=== PATIENT | female | born 1935 | race Caucasian/White ===

== ENCOUNTER → 2017-01-31 | Outpatient (CLI) | payer OTHER ==
[2015-12-06 22:59] VITALS: BP 133/69
[~2017-01-31] MED LIST: AMIT10TA PO; ATOR10TA PO; Amitriptyline Hcl PO; Amoxicillin/Potassium Clav PO; GABA-586 PO; Oxycodone Hcl/Acetaminophen PO; Polyethylene Glycol 3350 PO; SERT50TA PO; SIMV10TA3 PO; TRAM50TA PO
--- NOTE | 2017-01-31 10:45 | RAD ---
APPROVED REPORT Patient Location: OUT-PATIENT Laterality:Bilateral Indications Bruit LT Doppler Spectral Velocity Analysis Right Left pCCA 86/20 cm/spCCA 114/33 cm/s mCCA 95/31 cm/smCCA 93/26 cm/s dCCA 97/30 cm/sdCCA 91/26 cm/s Bulb 72/23 cm/sBulb 41/12 cm/s ECA 83/ cm/sECA 75/ cm/s pICA 97/29 cm/spICA 72/23 cm/s Jeanette 63/17 cm/smICA 97/39 cm/s dICA 102/31 cm/sdICA 98/41 cm/s Vert. 31/ cm/sVert. 37/ cm/s Subcl. 54/ cm/sSubcl. 89/ cm/s ICA/CCA 1.05ICA/CCA 0.86 Findings Cline scale images of the bilateral common carotid, external carotid, internal carotid and vertebral v essels do not reveal any significant obstructive plaque. Spectral waveforms and color Doppler does not reveal any significant stenosis. Velocities are within normal limits. The vertebral flows are antegrade. Critical Notification Critical Value: No <Conclusion> No significant stenosis identified in the bilateral carotid arterial system.
--- NOTE | 2017-01-31 12:30 | CARD ---
APPROVED REPORT EXAM: Two-dimensional and M-mode echocardiogram with Doppler and color Doppler. Other Information Quality : GoodHR: 74bpm Rhythm : NSR INDICATION Dizziness, Falls, Elevated blood pressure w/o diagnosis of HTN 2D DIMENSIONS RVDd2.8 (2.9-3.5cm)Left Atrium(2D)2.9 (1.6-4.0cm) IVSd0.8 (0.7-1.1cm)Aortic Root(2D)3.6 (2.0-3.7cm) LVDd4.8 (3.9-5.9cm)LVOT Diameter2.5 (1.8-2.4cm) PWd0.7 (0.7-1.1cm)LVDs3.1 (2.5-4.0cm) FS (%) 35.2 %SV70.2 ml Aortic Valve AoV Peak Tavon.132.7cm/sAoV VTI29.5cm AO Peak GR.7.0mmHgLVOT Peak Tavon.96.4cm/s AO Mean GR.4mmHgAVA (VMAX)3.55cm2 Mitral Valve MV E Favlwhnz15.8cm/sMV E Peak Gr.4mmHg MV DECEL [id number] A Cwppcqla913.9cm/s MV E Mean Gr.2mmHgE/A Ratio0.6 MV A [id number] Pulmonary Valve PV Peak Iziesycz92.5cm/s Tricuspid Valve TR P. Trkipyny809cm/sTR Peak Gr.31mmHg Pulmonary Vein S1 Pjfqvlwd99.0cm/sD2 Qqvhrwbd07.6cm/s PVa ryqtknts62zutn LEFT VENTRICLE The left ventricle is normal size. There is normal left ventricular wall thickness. The left ventricu lar systolic function is normal and the ejection fraction is within normal range. The Ejection Fracti on is 55-60%. There is normal LV segmental wall motion. Transmitral Doppler flow pattern is Grade I-a bnormal relaxation pattern. RIGHT VENTRICLE The right ventricle is normal size. There is normal right ventricular wall thickness. The right ventr icular systolic function is normal. ATRIA The left atrium size is normal. The right atrium size is normal. The interatrial septum is intact wit h no evidence for an atrial septal defect or patent foramen ovale as noted on 2-D or Doppler imaging. AORTIC VALVE The aortic valve is mildly sclerotic. The aortic valve is trileaflet. Doppler and Color Flow revealed trace aortic regurgitation. There is no significant aortic valvular stenosis. MITRAL VALVE The mitral valve leaflets are mildly thickened. There is no evidence of mitral valve prolapse. There is no mitral valve stenosis. Doppler and Color Flow revealed no mitral valve regurgitation noted. TRICUSPID VALVE Doppler and Color Flow revealed mild tricuspid regurgitation. The pulmonary artery systolic pressure is estimated at 34 mmHg. PULMONIC VALVE Doppler and Color Flow revealed no pulmonic valvular regurgitation. There is no pulmonic valvular beatriz nosis. GREAT VESSELS The aortic root is mildly enlarged. The ascending aorta is normal in size. The pulmonary artery is no rmal. The IVC is normal in size and collapses >50% with inspiration. PERICARDIAL EFFUSION There is no evidence of significant pericardial effusion. Critical Notification Critical Value: No <Conclusion> The left ventricle is normal size. The left ventricular systolic function is normal and the ejection fraction is within normal range. The Ejection Fraction is 55-60%. There is no significant aortic valvular stenosis. Doppler and Color Flow revealed trace aortic regurgitation. Doppler and Color Flow revealed no mitral valve regurgitation noted. Doppler and Color Flow revealed mild tricuspid regurgitation. The pulmonary artery systolic pressure is estimated at 34 mmHg.
== END | disposition home or self-care (01) ==
LOC: ECHO 08:49
PROVIDERS: ATTEND Internal Medicine Cardiovascular Disease
DX: I08.2 Rheumatic disorders of both aortic and tricuspid valves (principal); R09.89 Other specified symptoms and signs involving the circulatory and respiratory systems
CPT/HCPCS: 93306; 93880

== ENCOUNTER 2019-04-26 10:18 | Inpatient (IN) | payer OTHER ==
[~2019-04-26] VITALS: Ht 160 cm; Wt 74.5 kg
[~2019-04-26 10:18] MED LIST changes: -GABA-586 PO; +GABA300C18 PO
[2019-04-26 11:05] LABS: BASO # 0.1 x10^3/uL (0.0-0.2); BASO % 1 % (0-3); EOS # 0.2 x10^3/uL (0.0-0.7); EOS % 3 % (0-3); HEMATOCRIT 41.3 % (36.0-47.0); LYMPH # 1.4 x10^3/uL (1.0-4.8); LYMPH % 23 % (24-48); MEAN CORPUSCULAR HEMOGLOBIN 31 pg (25-35); MEAN CORPUSCULAR HGB CONC 34 g/dL (31-37); MEAN CORPUSCULAR VOLUME 92 fL (79-100); MONO # 0.5 x10^3/uL (0.0-1.1); MONO % 8 % (0-9); NEUT # 4.1 x10^3/uL (1.8-7.7); NEUT % 66 % (31-73); PLATELET COUNT 304 x10^3/uL (140-400); RED BLOOD COUNT 4.47 x10^6/uL (3.50-5.40); RED CELL DISTRIBUTION WIDTH 16.7 % (11.5-14.5); WHITE BLOOD COUNT 6.2 x10^3/uL (4.0-11.0)
[2019-04-26 11:14] LABS: BILIRUBIN,URINE MODERATE (NEG); CLARITY,URINE CLEAR; COLOR,URINE AMBER; NITRITE,URINE NEGATIVE (NEG); PROTEIN,URINE NEGATIVE (NEG-TRACE); UROBILINOGEN,URINE 0.2 mg/dL (0.2 mg/dL)
[2019-04-26 11:16] LABS: PROTHROMBIN TIME PATIENT 12.6 SEC (11.7-14.0)
[2019-04-26 11:20] LABS: CALCIUM 9.6 mg/dL (8.5-10.1); CREATININE 1.1 mg/dL (0.6-1.0); GFR 47.7; POTASSIUM 4.1 mmol/L (3.5-5.1)
[2019-04-26 11:21] LABS: ALBUMIN 3.5 g/dL (3.4-5.0); ALBUMIN/GLOBULIN RATIO 0.7 (1.0-1.7); TOTAL BILIRUBIN 10.3 mg/dL (0.2-1.0); TOTAL PROTEIN 8.3 g/dL (6.4-8.2)
[2019-04-26 11:25] LABS: BACTERIA,URINE FEW /HPF (0-FEW); RBC,URINE 0 /HPF (0-2); SQUAMOUS EPITHELIAL CELL,UR FEW /LPF; WBC,URINE OCC /HPF (0-4)
[2019-04-26] MEDS ORDERED: CONTRAST GIVEN. MC PRN (12:00)
--- NOTE | 2019-04-26 12:23 | PDOC ---
Provider Note Provider Note history and physical dictated # [id number] SRINIVASA ABDULLAHI MD Apr 26, 2019 12:23
--- NOTE | 2019-04-26 12:26 | RAD ---
PQRS Compliance Statement: One or more of the following individualized dose reduction techniques were utilized for this examination: 1. Automated exposure control 2. Adjustment of the mA and/or kV according to patient size 3. Use of iterative reconstruction technique CT abdomen/pelvis with contrast 04/26/2019 11:47 AM INDICATION: Abdominal pain, nausea and vomiting COMPARISON: None available TECHNIQUE: Multiple axial CT images of the abdomen and pelvis were obtained after the intravenous administration of 60 and Omnipaque 300. Coronal and sagittal reformats are provided. FINDINGS: There is subsegmental atelectasis at the left lung base. Heart size is within normal limits. Liver is homogeneous in enhancement without suspicious hepatic lesion. Spleen is nonenlarged. Adrenal glands are normal in appearance. Pancreas is normal. There is a small duodenal diverticulum measuring 18 x 16 mm. Gallbladder surgically absent. There is moderate intrahepatic and extrahepatic biliary ductal dilatation with common bile duct measuring 17 mm. There is a large diverticulum involving the duodenal jejunal junction measuring 4.9 x 3.7 cm. The abdominal aorta is normal in course and caliber. There are no pathologically enlarged lymph nodes in the abdomen and pelvis. There is no abdominal free fluid. There is no free intraperitoneal air. Small and large bowel are normal in caliber. There is no evidence for bowel obstruction. There are no pericolonic inflammatory changes. Appendix is not definitively visualized. No pericecal inflammatory changes are present. Kidneys enhance symmetrically. No suspicious renal mass. No hydronephrosis. No definite renal calculi are identified. Urinary bladder is within normal limits given degree of distention. No suspicious osseous normality is identified. Uterus is surgically absent or atrophied. No suspicious adnexal mass. IMPRESSION: 1. No evidence for bowel obstruction or inflammation. 2. Small proximal duodenal and large distal duodenal diverticula without adjacent inflammatory changes. 3. Moderate intrahepatic and extra hepatic biliary ductal dilatation. Consideration may be given for reservoir effect status post cholecystectomy. Correlate with hepatobiliary enzymes. If there is persistent clinical concern, further characterization with MRCP may be of benefit. Electronically signed by: Amelia Liang MD (04/26/2019 12:23 PM) [facility]
[2019-04-26] MEDS ORDERED: MORPHINE SULFATE 2 MG/ML VIAL. IV PRN (12:30)
[2019-04-26] MEDS ORDERED: IOHEXOL 300 MG/ML 100ML VIAL. IV ONE (12:30)
[2019-04-26] MEDS ORDERED: MAGNESIUM HYDROXIDE 2,400 MG/30 ML ORAL.SUSP. PO PRN (12:30)
[2019-04-26] MEDS ORDERED: HYDROcodone/APAP 5/325MG 1 TAB TABLET PO PRN (12:30)
--- NOTE | 2019-04-26 12:37 | PHYS DOC ---
Past Medical History Past Medical History: Anemia, Fibromyalgia, High Cholesterol, Hypertension, Other Additional Past Medical Histor: Kidney disease Past Surgical History: Cholecystectomy, Hysterectomy, Other Additional Past Surgical Histo: Cystocele,Rectocele Alcohol Use: Rarely Drug Use: None Adult General Chief Complaint Chief Complaint: NAUSEA/VOMITING/[facility] HPI Patient is a 83 year old female presented ER today for evaluation of nausea, vomiting, general weakness, with itching skin discoloration been going on for about 2 weeks. Patient went to see her doctor yesterday, who ordered some lab work and CT scan of her abdomen and pelvic but it was not done. Patient continued to feel worse so she called her doctor who told to come to ER for evaluation. Patient also complaint of having a clayed color stool. l Review of Systems Review of Systems Constitutional: Denies fever or chills. Positive for generalized weakness. Eyes: Denies change in visual acuity, redness, or eye pain [] HENT: Denies nasal congestion or sore throat [] Respiratory: Denies cough or shortness of breath [] Cardiovascular: No additional information not addressed in HPI [] GI: Positive for abdominal pain, nausea, vomiting, stool with mary color. : Denies dysuria or hematuria [] Musculoskeletal: Denies back pain or joint pain [] Integument: Denies rash or skin lesions [] Neurologic: Denies headache, focal weakness or sensory changes [] Endocrine: Denies polyuria or polydipsia [] All other systems were reviewed and found to be within normal limits, except as documented in this note. Current Medications Current Medications Current Medications Medications (Trade) Dose Ordered Sig/Meka Start Time Stop Time Status Last Admin Dose Admin Acetaminophen (Tylenol) 325 mg PRN Q6HRS PRN 04/26/19 12:30 Acetaminophen/ Hydrocodone Bitart (Lortab 5/325) 1 tab PRN Q4HRS PRN 04/26/19 12:45 Hydroxyzine HCl (Atarax) 25 mg PRN Q6HRS PRN 04/26/19 12:30 04/26/19 15:43 25 MG Info (CONTRAST GIVEN -- Rx MONITORING) 1 each PRN DAILY PRN 04/26/19 12:00 04/28/19 11:59 Iohexol (Omnipaque 300 Mg/ml) 60 ml 1X ONCE 04/26/19 12:30 04/26/19 12:31 DC 04/26/19 12:06 60 ML Lorazepam (Ativan) 0.5 mg PRN BID PRN 04/26/19 12:30 Magnesium Hydroxide (Milk Of Magnesia) 2,400 mg PRN DAILY PRN 04/26/19 12:30 Morphine Sulfate (Morphine Sulfate) 1 mg PRN Q4HRS PRN 04/26/19 12:45 Ondansetron HCl (Zofran) 4 mg PRN Q6HRS PRN 04/26/19 12:30 Allergies Allergies Allergies Coded Allergies Type Severity Reaction Last Updated Verified Penicillins Allergy Intermediate 04/26/19 Yes Sulfa (Sulfonamide Antibiotics) Allergy Intermediate Hives. 04/14/15 Yes lisinopril Allergy Intermediate 04/14/15 Yes Physical Exam Physical Exam Constitutional: Well developed, well nourished, no acute distress, non-toxic appearance. [] HENT: Normocephalic, atraumatic, bilateral external ears normal, oropharynx moist, no oral exudates, nose normal. [] Eyes: PERRLA, EOMI, conjunctiva icterus, no discharge. [] Neck: Normal range of motion, no tenderness, supple, no stridor. [] Cardiovascular:Heart rate regular rhythm, no murmur [] Lungs & Thorax: Bilateral breath sounds clear to auscultation [] Abdomen: Bowel sounds normal, soft, no tenderness, no masses, no pulsatile masses. [] Skin: Warm, dry, no erythema, moderate Jaundice. Back: No tenderness, no CVA tenderness. [] Extremities: No tenderness, no cyanosis, no clubbing, ROM intact, no edema. [] Neurologic: Alert and oriented X 3, normal motor function, normal sensory function, no focal deficits noted. [] Psychologic: Affect normal, judgement normal, mood normal. [] Current Patient Data Vital Signs Vital Signs Date Time Temp Pulse Resp B/P (MAP) Pulse Ox O2 Delivery O2 Flow Rate FiO2 04/26/19 12:40 74 14 148/92 (110) 96 Room Air 04/26/19 10:40 98.2 98.2 Lab Values Laboratory Tests Test 04/26/19 10:40 04/26/19 10:55 04/26/19 11:18 Urine Collection Type Unknown Urine Color Rhoda Urine Clarity Clear Urine pH 6.0 Urine Specific [place] 1.010 Urine Protein Negative mg/dL (NEG-TRACE) Urine Glucose (UA) Negative mg/dL (NEG) Urine Ketones (Stick) Negative mg/dL (NEG) Urine Blood Negative (NEG) Urine Nitrite Negative (NEG) Urine Bilirubin Moderate (NEG) Urine Urobilinogen Dipstick 0.2 mg/dL (0.2 mg/dL) Urine Leukocyte Esterase Trace (NEG) Urine RBC 0 /HPF (0-2) Urine WBC Occ /HPF (0-4) Urine Squamous Epithelial Cells Few /LPF Urine Bacteria Few /HPF (0-FEW) White Blood Count 6.2 x10^3/uL (4.0-11.0) Red Blood Count 4.47 x10^6/uL (3.50-5.40) Hemoglobin 14.0 g/dL (12.0-15.5) Hematocrit 41.3 % (36.0-47.0) Mean Corpuscular Volume 92 fL (79-100) Mean Corpuscular Hemoglobin 31 pg (25-35) Mean Corpuscular Hemoglobin Concent 34 g/dL (31-37) Red Cell Distribution Width 16.7 % (11.5-14.5) H Platelet Count 304 x10^3/uL (140-400) Neutrophils (%) (Auto) 66 % (31-73) Lymphocytes (%) (Auto) 23 % (24-48) L Monocytes (%) (Auto) 8 % (0-9) Eosinophils (%) (Auto) 3 % (0-3) Basophils (%) (Auto) 1 % (0-3) Neutrophils # (Auto) 4.1 x10^3/uL (1.8-7.7) Lymphocytes # (Auto) 1.4 x10^3/uL (1.0-4.8) Monocytes # (Auto) 0.5 x10^3/uL (0.0-1.1) Eosinophils # (Auto) 0.2 x10^3/uL (0.0-0.7) Basophils # (Auto) 0.1 x10^3/uL (0.0-0.2) Prothrombin Time 12.6 SEC (11.7-14.0) Prothrombin Time INR 1.0 (0.8-1.1) PTT 33 SEC (24-38) Sodium Level 140 mmol/L (136-145) Potassium Level 4.1 mmol/L (3.5-5.1) Chloride Level 101 mmol/L (98-107) Carbon Dioxide Level 25 mmol/L (21-32) Anion Gap 14 (6-14) Blood Urea Nitrogen 18 mg/dL (7-20) Creatinine 1.1 mg/dL (0.6-1.0) H Estimated GFR (Cockcroft-Gault) 47.7 BUN/Creatinine Ratio 16 (6-20) Glucose Level 151 mg/dL (70-99) H Calcium Level 9.6 mg/dL (8.5-10.1) Total Bilirubin 10.3 mg/dL (0.2-1.0) H Aspartate Amino Transferase (AST) 329 U/L (15-37) H Alanine Aminotransferase (ALT) 480 U/L (14-59) H Alkaline Phosphatase 493 U/L (46-116) H Total Protein 8.3 g/dL (6.4-8.2) H Albumin 3.5 g/dL (3.4-5.0) Albumin/Globulin Ratio 0.7 (1.0-1.7) L Lipase 184 U/L (73-393) Ammonia 31 mcmol/L (11-34) Laboratory Tests 04/26/19 10:55 Laboratory Tests 04/26/19 10:55 EKG EKG [] Radiology/Procedures Radiology/Procedures [][facility] [address] [place], [place] [id number] IMAGING REPORT Signed PATIENT: ANDREW LA ACCOUNT: [id number] : 1935 LOCATION: ER AGE: 83 SEX: F EXAM STATUS: REG ER ORD. PHYSICIAN: MOISES SIMMONS DO REASON: ABDOMINAL PAIN, NAUSEA, VOMITING PROCEDURE: CT ABD PELV W/ IV CONTRST ONLY PQRS Compliance Statement: One or more of the following individualized dose reduction techniques were utilized for this examination: 1. Automated exposure control 2. Adjustment of the mA and/or kV according to patient size 3. Use of iterative reconstruction technique CT abdomen/pelvis with contrast 04/26/2019 11:47 AM INDICATION: Abdominal pain, nausea and vomiting COMPARISON: None available TECHNIQUE: Multiple axial CT images of the abdomen and pelvis were obtained after the intravenous administration of 60 and Omnipaque 300. Coronal and sagittal reformats are provided. FINDINGS: There is subsegmental atelectasis at the left lung base. Heart size is within normal limits. Liver is homogeneous in enhancement without suspicious hepatic lesion. Spleen is nonenlarged. Adrenal glands are normal in appearance. Pancreas is normal. There is a small duodenal diverticulum measuring 18 x 16 mm. Gallbladder surgically absent. There is moderate intrahepatic and extrahepatic biliary ductal dilatation with common bile duct measuring 17 mm. There is a large diverticulum involving the duodenal jejunal junction measuring 4.9 x 3.7 cm. The abdominal aorta is normal in course and caliber. There are no pathologically enlarged lymph nodes in the abdomen and pelvis. There is no abdominal free fluid. There is no free intraperitoneal air. Small and large bowel are normal in caliber. There is no evidence for bowel obstruction. There are no pericolonic inflammatory changes. Appendix is not definitively visualized. No pericecal inflammatory changes are present. Kidneys enhance symmetrically. No suspicious renal mass. No hydronephrosis. No definite renal calculi are identified. Urinary bladder is within normal limits given degree of distention. No suspicious osseous normality is identified. Uterus is surgically absent or atrophied. No suspicious adnexal mass. IMPRESSION: 1. No evidence for bowel obstruction or inflammation. 2. Small proximal duodenal and large distal duodenal diverticula without adjacent inflammatory changes. 3. Moderate intrahepatic and extra hepatic biliary ductal dilatation. Consideration may be given for reservoir effect status post cholecystectomy. Correlate with hepatobiliary enzymes. If there is persistent clinical concern, further characterization with MRCP may be of benefit. Electronically signed by: Paxton Daniel MD (04/26/2019 12:23 PM) [facility] DICTATED and SIGNED BY: PAXTON DANIEL MD DATE: 04/26/19 1223 [facility] [address] [place], [place] [id number] IMAGING REPORT Signed PATIENT: ANDREW LA ACCOUNT: [id number] : 1935 LOCATION: [address] [place] [address] AGE: 83 SEX: F EXAM STATUS: ADM IN ORD. PHYSICIAN: MOISES SIMMONS DO REASON: ABDOMINAL PAIN, JAUNDICE PROCEDURE: ABDOMEN LTD Limited ultrasound abdomen 04/26/2019 INDICATION: Abdominal pain, jaundice. COMPARISON: CT abdomen/pelvis April 26, 2019 TECHNIQUE: Sonographic evaluation of the right upper quadrant was performed utilizing grayscale and color Doppler. FINDINGS: IVC and aorta are normal in appearance. Increased echogenicity of the hepatic parenchyma suggestive of hepatocellular disease, most, hepatic steatosis. No suspicious hepatic mass. Hepatopedal flow is identified within the portal venous system. Right hepatic lobe measures 16.7 cm. Pancreas is poorly visualized. Status post cholecystectomy. There is intrahepatic and extra hepatic biliary ductal dilatation. Common bile duct measures up to 12.2 mm. Right kidney measures 8.1 x 4.3 x 4.9 cm. Mild cortical atrophy with normal cortical medullary differentiation. No suspicious renal mass or renal calculi. There is no free fluid in the right upper quadrant. IMPRESSION: 1. Intrahepatic and extrahepatic bladder ductal dilatation with common bile duct measuring up to 12.2 mm. Recommend further evaluation with MRCP in the setting of jaundice. 2. Increased echogenicity of the hepatic parenchyma suggestive of hepatocellular disease, most, hepatic steatosis. Electronically signed by: Paxton Daniel MD (04/26/2019 1:55 PM) [facility] DICTATED and SIGNED BY: PAXTON DANIEL MD DATE: 04/26/19 7816 Course & Med Decision Making Course & Med Decision Making Pertinent Labs and Imaging studies reviewed. (See chart for details) [] Dragon Disclaimer Dragon Disclaimer This electronic medical record was generated, in whole or in part, using a voice recognition dictation system. Departure Departure Impression: Primary Impression: Obstructive jaundice Additional Impression: Acute hepatitis Disposition: ADMITTED INPATIENT Admitting Physician: Genaro Perez Condition: STABLE Referrals: GENARO PEREZ MD (PCP) Problem Qualifiers MOISES SIMMONS DO Apr 26, 2019 12:37
--- NOTE | 2019-04-26 13:05 | HP ---
ADMIT DATE: 04/26/2019 HISTORY OF PRESENT ILLNESS: The patient is an 83-year-old white female, who has 1-week history of generalized pruritus, mary-colored stools, dark urine, and some decreased appetite. She actually was seen in the office on 04/25/2019 for these symptoms and laboratory tests were ordered, and a CAT scan of the abdomen and pelvis was also to be ordered. The patient developed significant nausea and epigastric abdominal pain today, and her son who is a physician told her to go to the [facility] Emergency Room where she was subsequently evaluated. She had laboratory tests done, which showed a total bilirubin of 10.3, alkaline phosphatase was elevated at 493, SGOT was 329, SGPT was 480. A CAT scan of abdomen and pelvis has been ordered and is pending at the time of this dictation. She does have a history of a cholecystectomy. She has had no vomiting, but she has persistent nausea with decreased appetite. She was noted to be jaundiced yesterday and of course today. She is therefore admitted for further evaluation of her jaundice, treatment of her nausea, generalized pruritus, and abdominal pain, and to workup her jaundice. ALLERGIES AND INTOLERANCES: TO PENICILLIN, SULFA AND LISINOPRIL, CAUSED ANGIOEDEMA. MEDICATIONS: Prior to admission, she was on amitriptyline, which was 50 mg at bedtime reduced yesterday to 25 mg at bedtime, amlodipine 5 mg every day, atorvastatin 10 mg every day which was just discontinued yesterday due to her jaundice, Flonase p.r.n., gabapentin 300 mg t.i.d., hydroxyzine was ordered yesterday 10 mg t.i.d. p.r.n. for itching, lorazepam 0.5 mg every day p.r.n. for anxiety, MiraLax 17 gm every day in 8 ounces of fluid, ProAir inhaler p.r.n., sertraline 50 mg every day, tramadol was reduced from 50 mg 2 tablets t.i.d. to 1 tablet t.i.d. PAST MEDICAL HISTORY: Significant for a cholecystectomy a few years ago. She also has a history of depression, hypertension, hyperlipidemia. She had pneumonia involving the left lower lobe in 11/2015. She had Fibromyalgia. She does have minimal chronic kidney disease. Serum creatinine was 1.1. SOCIAL HISTORY: She does not drink alcohol nor does she smoke cigarettes. She is , retired. FAMILY HISTORY: Noncontributory. REVIEW OF SYSTEMS: GENERAL: There has been no fever, chills, or sweats in last few days. CARDIOVASCULAR: No chest pain. PULMONARY: No cough or shortness of breath. GASTROINTESTINAL: She has had nausea and some epigastric abdominal pain. She has got mary-colored stools. SKIN: She has generalized pruritus. ENDOCRINE: No diabetes mellitus. The rest of systems reviewed are negative except as stated in history of present illness. PHYSICAL EXAMINATION: VITAL SIGNS: Temperature is 98.2 degrees, apical pulse is 79, respiratory rate 16, blood pressure 146/86, oxygen saturation 95% on room air. HEENT: Eyes, gaze is conjugate. Sclerae are icteric. Mouth, tongue is midline. NECK: There is no cervical lymphadenopathy or thyroid enlargement. HEART: Reveals an S1, S2. There is no S3 or murmur. LUNGS: Clear. ABDOMEN: Appears distended. I cannot feel her liver edge below her costal margin in the right side. I cannot feel an enlarged spleen, cannot feel a spleen tip. Abdomen is not tender. I could not feel a definite fluid wave. EXTREMITIES: Lower extremities without edema. SKIN: She is jaundiced. NEUROLOGIC: No focal weakness. LABORATORY DATA: Review of her laboratory tests; her white count is 6.2, hemoglobin 14, platelet count 304,000 with 66 polys and 23 lymphocytes. INR was 1.0, PTT of 33. The sodium is 140, potassium 4.1, chloride 101, total CO2 is 25, BUN 18, creatinine 1.1, estimated GFR 47.8 and blood sugar is 151, nonfasting. Total bilirubin was 10.3, alkaline phosphatase was 493, SGOT of 329, SGPT of 480. Ammonia level was 31. Albumin was 3.5. Lipase was 184. Urinalysis showed moderate bilirubin, 0 red cells and occasional white blood cell. Her EKG, chest x-ray, and CAT scan of the abdomen and pelvis are pending at the time of this dictation. ASSESSMENT AND PLAN: 1. Jaundice, certainly concerned about obstructive jaundice and we will wait for the CAT scan of abdomen and pelvis to dictate the next move and the diagnostic evaluation and treatment of this. Obviously in the setting of obstructive jaundice, we worried about pancreatic cancer, cholangiocarcinoma, and prabha hepatis tumors that can compress on the bile duct. Also, need to rule out liver metastases, which will be less likely as she does not have a primary malignancy and also need to rule out a bile duct stone obstruction even in the setting of a cholecystectomy, although that would be less likely. 2. Epigastric abdominal pain. Wait for the CAT scan of the abdomen and pelvis results, and we will order some IV morphine sulfate and hydrocodone p.r.n. 3. Generalized pruritus secondary to the suspected obstructive jaundice and we will order cholestyramine 4 gm b.i.d. and also order hydroxyzine 25 mg p.o. every 6 hours p.r.n. We will be consulting the Gastrointestinal doctor. We will also order SCDs for deep vein thrombosis prophylaxis. We will discontinue the atorvastatin and we can continue the tramadol. Continue with her other home medications. Again, we will wait for the CAT scan of abdomen and pelvis results. Also order some Zofran 4 mg IV every 6 hours p.r.n. for nausea. SRINIVASA ABDULLAHI MD DR: ISAK/valorie JOB#: [id number] / [id number]
--- NOTE | 2019-04-26 13:09 | RAD ---
AP chest x-ray HISTORY: Jaundice, hypertension. FINDINGS: Heart size normal. Mild tortuosity descending thoracic aorta silhouette. No pneumothorax, pulmonary opacities or pleural effusions. Bones are unremarkable. IMPRESSION: No acute process. Electronically signed by: Ross Momin MD (04/26/2019 1:07 PM) [facility]
[2019-04-26 13:50] VITALS: BP 147/88
--- NOTE | 2019-04-26 13:58 | RAD ---
Limited ultrasound abdomen 04/26/2019 INDICATION: Abdominal pain, jaundice. COMPARISON: CT abdomen/pelvis April 26, 2019 TECHNIQUE: Sonographic evaluation of the right upper quadrant was performed utilizing grayscale and color Doppler. FINDINGS: IVC and aorta are normal in appearance. Increased echogenicity of the hepatic parenchyma suggestive of hepatocellular disease, most, hepatic steatosis. No suspicious hepatic mass. Hepatopedal flow is identified within the portal venous system. Right hepatic lobe measures 16.7 cm. Pancreas is poorly visualized. Status post cholecystectomy. There is intrahepatic and extra hepatic biliary ductal dilatation. Common bile duct measures up to 12.2 mm. Right kidney measures 8.1 x 4.3 x 4.9 cm. Mild cortical atrophy with normal cortical medullary differentiation. No suspicious renal mass or renal calculi. There is no free fluid in the right upper quadrant. IMPRESSION: 1. Intrahepatic and extrahepatic bladder ductal dilatation with common bile duct measuring up to 12.2 mm. Recommend further evaluation with MRCP in the setting of jaundice. 2. Increased echogenicity of the hepatic parenchyma suggestive of hepatocellular disease, most, hepatic steatosis. Electronically signed by: Amelia Liang MD (04/26/2019 1:55 PM) [facility]
[2019-04-26 15:39] VITALS: BP 144/84
[2019-04-26] MEDS: hydrOXYzine 25 MG TABLET PO PRN ×2 (15:43→22:20)
[2019-04-26] MEDS: GABAPENTIN 300 MG CAPSULE. PO SCH ×2 (15:43→20:40)
[2019-04-26] MEDS: traMADol 50 MG TABLET PO SCH ×2 (15:43→20:40)
[2019-04-26 19:30] VITALS: BP 135/44
[2019-04-26] MEDS: CHOLESTYRAMINE/ASPARTAME 4 GM PACKET PO SCH (22:21)
[2019-04-26 23:46] VITALS: BP 161/91
[2019-04-26] MEDS: HYDROcodone/APAP 5/325MG 1 TAB TABLET PO PRN (23:51)
[2019-04-27 03:06] VITALS: BP 146/75
[2019-04-27] MEDS: hydrOXYzine 25 MG TABLET PO PRN ×4 (04:32→23:56)
[2019-04-27 07:15] VITALS: BP 134/65
[2019-04-27] MEDS: GABAPENTIN 300 MG CAPSULE. PO SCH ×3 (08:30→20:13)
[2019-04-27] MEDS: POLYETHYLENE GLYCOL 3350 17 GM PACKET. PO SCH ×2 (08:30→17:52)
[2019-04-27] MEDS: traMADol 50 MG TABLET PO SCH ×3 (08:30→20:13)
[2019-04-27] MEDS: SERTRALINE 50 MG TABLET. PO SCH (08:30)
[2019-04-27] MEDS: CHOLESTYRAMINE/ASPARTAME 4 GM PACKET PO SCH ×2 (08:31→21:04)
[2019-04-27 10:58] VITALS: BP 131/65
--- NOTE | 2019-04-27 11:20 | NUR ---
Per Dr. Perez,this RN paged Dr. Tobias regarding the GI consult and possible ERCP order for Sunday. Dr. Tobias aware of the plan of care, and will see the patient today. Will continue to monitor.
--- NOTE | 2019-04-27 11:37 | PDOC ---
PROGRESS NOTES Subjective Subjective ct scan of abdomen and pelvis and abdominal ultrasound shows intrahepatic and extrahepatic biliary duct dilatation. total bilirubin 10. has epigastric abdominal pain severe at times and severe generalized pruritis and mary colored stools and nausea. discussed with patient and her and her son who is an MD. Objective Objective Vital Signs Date Time Temp Pulse Resp B/P (MAP) Pulse Ox O2 Delivery O2 Flow Rate FiO2 04/27/19 10:58 98.4 90 18 131/65 (87) 94 Room Air 98.4 Intake and Output 04/27/19 07:00 # Voids 4 Physical Exam Abdomen: Soft, Other (liver edge palpable) Heart: Regular rate, Normal S1, Normal S2 Extremities: No edema General: Alert, Cooperative HEENT: Atraumatic, Other (sclera icteric) Lungs: Clear to auscultation Neck: Supple Neuro: Normal speech Psych/Mental Status: Mental status NL Skin: Other (jaundice) Assessment Assessment Problems1.obstructive jaundice severe generalized pruritis nausea epigastric pain hypertension hyperlipidemia. off atorvastatin Medical Problems: (1) Acute hepatitis Status: Acute (2) Obstructive jaundice Status: Acute Plan Plan of Care GI consult. evaluate for ERCP iv morphine prn iv zofran prn cholestyramine and hydroxyzine Comment Review of Relevant I have reviewed the following items betty (where applicable) has been applied. Labs Laboratory Tests Test 04/26/19 10:40 04/26/19 10:55 04/26/19 11:18 Urine Collection Type Unknown Urine Color Rhoda Urine Clarity Clear Urine pH 6.0 Urine Specific [place] 1.010 Urine Protein Negative mg/dL (NEG-TRACE) Urine Glucose (UA) Negative mg/dL (NEG) Urine Ketones (Stick) Negative mg/dL (NEG) Urine Blood Negative (NEG) Urine Nitrite Negative (NEG) Urine Bilirubin Moderate (NEG) Urine Urobilinogen Dipstick 0.2 mg/dL (0.2 mg/dL) Urine Leukocyte Esterase Trace (NEG) Urine RBC 0 /HPF (0-2) Urine WBC Occ /HPF (0-4) Urine Squamous Epithelial Cells Few /LPF Urine Bacteria Few /HPF (0-FEW) White Blood Count 6.2 x10^3/uL (4.0-11.0) Red Blood Count 4.47 x10^6/uL (3.50-5.40) Hemoglobin 14.0 g/dL (12.0-15.5) Hematocrit 41.3 % (36.0-47.0) Mean Corpuscular Volume 92 fL (79-100) Mean Corpuscular Hemoglobin 31 pg (25-35) Mean Corpuscular Hemoglobin Concent 34 g/dL (31-37) Red Cell Distribution Width 16.7 % (11.5-14.5) Platelet Count 304 x10^3/uL (140-400) Neutrophils (%) (Auto) 66 % (31-73) Lymphocytes (%) (Auto) 23 % (24-48) Monocytes (%) (Auto) 8 % (0-9) Eosinophils (%) (Auto) 3 % (0-3) Basophils (%) (Auto) 1 % (0-3) Neutrophils # (Auto) 4.1 x10^3/uL (1.8-7.7) Lymphocytes # (Auto) 1.4 x10^3/uL (1.0-4.8) Monocytes # (Auto) 0.5 x10^3/uL (0.0-1.1) Eosinophils # (Auto) 0.2 x10^3/uL (0.0-0.7) Basophils # (Auto) 0.1 x10^3/uL (0.0-0.2) Prothrombin Time 12.6 SEC (11.7-14.0) Prothromb Time International Ratio 1.0 (0.8-1.1) Activated Partial Thromboplast Time 33 SEC (24-38) Sodium Level 140 mmol/L (136-145) Potassium Level 4.1 mmol/L (3.5-5.1) Chloride Level 101 mmol/L (98-107) Carbon Dioxide Level 25 mmol/L (21-32) Anion Gap 14 (6-14) Blood Urea Nitrogen 18 mg/dL (7-20) Creatinine 1.1 mg/dL (0.6-1.0) Estimated GFR (Cockcroft-Gault) 47.7 BUN/Creatinine Ratio 16 (6-20) Glucose Level 151 mg/dL (70-99) Calcium Level 9.6 mg/dL (8.5-10.1) Total Bilirubin 10.3 mg/dL (0.2-1.0) Aspartate Amino Transf (AST/SGOT) 329 U/L (15-37) Alanine Aminotransferase (ALT/SGPT) 480 U/L (14-59) Alkaline Phosphatase 493 U/L (46-116) Total Protein 8.3 g/dL (6.4-8.2) Albumin 3.5 g/dL (3.4-5.0) Albumin/Globulin Ratio 0.7 (1.0-1.7) Lipase 184 U/L (73-393) Ammonia 31 mcmol/L (11-34) Medications Current Medications Iohexol (Omnipaque 300 Mg/ml) 60 ml 1X ONCE IV Last administered on 04/26/19at 12:06; Start 04/26/19 at 12:30; Stop 04/26/19 at 12:31; Status DC Info (CONTRAST GIVEN -- Rx MONITORING) 1 each PRN DAILY PRN MC SEE COMMENTS; Start 04/26/19 at 12:00; Stop 04/28/19 at 11:59 Ondansetron HCl (Zofran) 4 mg PRN Q6HRS PRN IV NAUSEA/VOMITING; Start 04/26/19 at 12:30 Cholestyramine Resin (Questran Light) 4 gm BID@1000,2200 PO Last administered on 04/27/19at 08:31; Start 04/26/19 at 22:00 Hydroxyzine HCl (Atarax) 25 mg PRN Q6HRS PRN PO ITCHING Last administered on 04/27/19at 04:32; Start 04/26/19 at 12:30 Morphine Sulfate (Morphine Sulfate) 2 mg PRN Q6HRS PRN IV SEVERE PAIN 7-10; Start 04/26/19 at 12:30; Stop 04/26/19 at 12:42; Status DC Acetaminophen/ Hydrocodone Bitart (Lortab 5/325) 1 tab PRN Q6HRS PRN PO MILD PAIN / TEMP; Start 04/26/19 at 12:30; Stop 04/26/19 at 12:42; Status DC Gabapentin (Neurontin) 300 mg TID PO Last administered on 04/27/19at 08:30; Start 04/26/19 at 14:00 Lorazepam (Ativan) 0.5 mg PRN BID PRN PO AGITATION; Start 04/26/19 at 12:30 Sertraline HCl (Zoloft) 50 mg DAILY PO Last administered on 04/27/19at 08:30; Start 04/27/19 at 09:00 Tramadol HCl (Ultram) 50 mg TID PO Last administered on 04/27/19at 08:30; Start 04/26/19 at 14:00 Acetaminophen (Tylenol) 325 mg PRN Q6HRS PRN PO MILD PAIN / TEMP; Start 04/26/19 at 12:30 Polyethylene Glycol (miraLAX PACKET) 17 gm DAILY PO ; Start 04/27/19 at 09:00 Magnesium Hydroxide (Milk Of Magnesia) 2,400 mg PRN DAILY PRN PO CONSTIPATION; Start 04/26/19 at 12:30 Acetaminophen/ Hydrocodone Bitart (Lortab 5/325) 1 tab PRN Q4HRS PRN PO PAIN Last administered on 04/26/19at 23:51; Start 04/26/19 at 12:45 Morphine Sulfate (Morphine Sulfate) 1 mg PRN Q4HRS PRN IV SEVERE PAIN 7-10; Start 04/26/19 at 12:45 Active Scripts Active Zoloft (Sertraline Hcl) 50 Mg Tablet 50 Mg PO DAILY [Polyethylene Glycol 3350] 17 GM Packet 17 Gm PO DAILY [Oxycodone Hcl/Acetaminophen] 1 TAB Tablet 1 Tab PO PRN Q4HRS PRN Neurontin (Gabapentin) 300 Mg Capsule 300 Mg PO TID [Amoxicillin/Potassium Clav] 1 TAB Tablet 1 Tab PO BID [Amitriptyline Hcl] 50 MG Tablet 50 Mg PO QHS Lipitor (Atorvastatin Calcium) 10 Mg Tablet 10 Mg PO QHS Vitals/I & O Vital Sign - Last 24 Hours 04/26/19 04/26/19 04/26/19 04/26/19 11:44 12:10 12:40 13:10 Pulse 79 74 74 66 Resp 16 16 14 14 B/P (MAP) 146/86 (106) 140/114 (123) 148/92 (110) 129/70 (89) Pulse Ox 95 95 96 96 O2 Delivery Room Air Room Air Room Air Room Air 04/26/19 04/26/19 04/26/19 04/26/19 13:50 15:07 15:39 19:30 Temp 98.4 97.6 98.3 98.4 97.6 98.3 Pulse 128 106 73 Resp 18 18 16 B/P (MAP) 147/88 (107) 144/84 (104) 135/44 (74) Pulse Ox 97 96 95 O2 Delivery Room Air Room Air Room Air Room Air 04/26/19 04/26/19 04/26/19 04/26/19 20:00 20:40 21:45 23:46 Temp 98.3 98.3 Pulse 81 Resp 16 16 18 B/P (MAP) 161/91 (114) Pulse Ox 95 95 96 O2 Delivery Room Air Room Air Room Air Room Air 04/26/19 04/27/19 04/27/19 04/27/19 23:51 01:00 03:06 07:15 Temp 98.2 98.2 98.2 98.2 Pulse 78 81 Resp 16 14 20 19 B/P (MAP) 146/75 (98) 134/65 (88) Pulse Ox 96 96 97 94 O2 Delivery Room Air Room Air Room Air Room Air 04/27/19 04/27/19 08:00 10:58 Temp 98.4 98.4 Pulse 90 Resp 18 B/P (MAP) 131/65 (87) Pulse Ox 94 O2 Delivery Room Air Room Air SRINIVASA ABDULLAHI MD Apr 27, 2019 11:37
[2019-04-27] MEDS: MORPHINE SULFATE 2 MG/ML VIAL. IV PRN ×3 (11:55→23:30)
--- NOTE | 2019-04-27 14:24 | PDOC2 ---
CONSULT Date of Consult Date of Consult DATE: 04/27/19 TIME: 14:14 Reason for Consult Reason for Consult: Jaundice, dilated biliary system on CT, pruritus History of Present Illness Reason for Visit: This is an 83-year-old female who presents with a three-week history of p rogressive pruritus, discomfort with out abdominal pain, mild decrease in appetite and flare of her fibromyalgia symptoms. She honestly did not notice that she was jaundiced but last week noticed her urine was systolically dark and her stools were [employer] products in color. She finally presented to Dr. Perez's office Sunday where labs were performed and she was noted to be jaundiced. She now presents for admission due to worsening pruritus, insomnia and to evaluate these symptoms. Has a history of acute cholelithiasis and acute cholecystitis back in 2015. She had cholecystectomy and had no further complaints. Presently she denies any significant abdominal pain and certainly no pain similar to those symptoms in 2015. She denies fevers, chills, melena or hematochezia. No history of cirrhosis or alcohol abuse. No history of hepatitis. Past Medical History Cardiovascular: Hyperlipidemia Pulmonary: No pertinent hx CENTRAL NERVOUS SYSTEM: Other GI: Constipation Heme/Onc: No pertinent hx Hepatobiliary: No pertinent hx Psych: Anxiety Musculoskeletal: Osteoarthritis Rheumatologic: Fibromyalgia Infectious disease: No pertinent hx Renal/: Chronic renal insuff, Other Endocrine: No pertinent hx Past Surgical History Past Surgical History: Cholecystectomy, Other Social History ALCOHOL: occassional Drugs: None Lives: with Family Domestic Violence: Neg Current Problem List Problem List Problems Medical Problems: (1) Acute hepatitis Status: Acute (2) Obstructive jaundice Status: Acute Current Medications Current Medications Current Medications Iohexol (Omnipaque 300 Mg/ml) 60 ml 1X ONCE IV Last administered on 04/26/19at 12:06; Start 04/26/19 at 12:30; Stop 04/26/19 at 12:31; Status DC Info (CONTRAST GIVEN -- Rx MONITORING) 1 each PRN DAILY PRN MC SEE COMMENTS; Start 04/26/19 at 12:00; Stop 04/28/19 at 11:59 Ondansetron HCl (Zofran) 4 mg PRN Q6HRS PRN IV NAUSEA/VOMITING; Start 04/26/19 at 12:30 Cholestyramine Resin (Questran Light) 4 gm BID@1000,2200 PO Last administered on 04/27/19 08:31; Start 04/26/19 at 22:00 Hydroxyzine HCl (Atarax) 25 mg PRN Q6HRS PRN PO ITCHING Last administered on 04/27/19 11:46; Start 04/26/19 at 12:30 Morphine Sulfate (Morphine Sulfate) 2 mg PRN Q6HRS PRN IV SEVERE PAIN 7-10; Start 04/26/19 at 12:30; Stop 04/26/19 at 12:42; Status DC Acetaminophen/ Hydrocodone Bitart (Lortab 5/325) 1 tab PRN Q6HRS PRN PO MILD PAIN / TEMP; Start 04/26/19 at 12:30; Stop 04/26/19 at 12:42; Status DC Gabapentin (Neurontin) 300 mg TID PO Last administered on 04/27/19 13:42; Start 04/26/19 at 14:00 Lorazepam (Ativan) 0.5 mg PRN BID PRN PO AGITATION; Start 04/26/19 at 12:30 Sertraline HCl (Zoloft) 50 mg DAILY PO Last administered on 04/27/19 08:30; Start 04/27/19 at 09:00 Tramadol HCl (Ultram) 50 mg TID PO Last administered on 04/27/19 13:42; Start 04/26/19 at 14:00 Acetaminophen (Tylenol) 325 mg PRN Q6HRS PRN PO MILD PAIN / TEMP; Start 04/26/19 at 12:30 Polyethylene Glycol (miraLAX PACKET) 17 gm DAILY PO ; Start 04/27/19 at 09:00 Magnesium Hydroxide (Milk Of Magnesia) 2,400 mg PRN DAILY PRN PO CONSTIPATION; Start 04/26/19 at 12:30 Acetaminophen/ Hydrocodone Bitart (Lortab 5/325) 1 tab PRN Q4HRS PRN PO PAIN Last administered on 04/26/19 23:51; Start 04/26/19 at 12:45 Morphine Sulfate (Morphine Sulfate) 1 mg PRN Q4HRS PRN IV SEVERE PAIN 7-10 Last administered on 04/27/19 11:55; Start 04/26/19 at 12:45 Active Scripts Active Zoloft (Sertraline Hcl) 50 Mg Tablet 50 Mg PO DAILY [Polyethylene Glycol 3350] 17 GM Packet 17 Gm PO DAILY [Oxycodone Hcl/Acetaminophen] 1 TAB Tablet 1 Tab PO PRN Q4HRS PRN Neurontin (Gabapentin) 300 Mg Capsule 300 Mg PO TID [Amoxicillin/Potassium Clav] 1 TAB Tablet 1 Tab PO BID [Amitriptyline Hcl] 50 MG Tablet 50 Mg PO QHS Lipitor (Atorvastatin Calcium) 10 Mg Tablet 10 Mg PO QHS Allergies Allergies: Coded Allergies: Penicillins (Verified Allergy, Intermediate, 04/26/19) rash Sulfa (Sulfonamide Antibiotics) (Verified Allergy, Intermediate, Hives., 04/14/15) lisinopril (Verified Allergy, Intermediate, 04/14/15) ROS Gastrointestinal: Yes Other (decreased appetite without nausea ) Genitourinary: YES Other (dark urine) Skin: Yes Pruritus Physical Exam General: Alert, Oriented X3, Cooperative HEENT: Atraumatic, Other (icterus) Lungs: Clear to auscultation Heart: Regular rate, Normal S1, Normal S2 Abdomen: Normal bowel sounds, Soft, No tenderness, No hepatosplenomegaly, No masses Extremities: No clubbing, No cyanosis Skin: Other (jaundice) Psych/Mental Status: Mental status NL Vitals VITALS Vital Signs Date Time Temp Pulse Resp B/P (MAP) Pulse Ox O2 Delivery O2 Flow Rate FiO2 04/27/19 11:55 94 Room Air 04/27/19 10:58 98.4 90 18 131/65 (87) 98.4 Labs Labs Laboratory Tests Test 04/26/19 10:40 04/26/19 10:55 04/26/19 11:18 Urine Collection Type Unknown Urine Color Rhoda Urine Clarity Clear Urine pH 6.0 Urine Specific [place] 1.010 Urine Protein Negative mg/dL (NEG-TRACE) Urine Glucose (UA) Negative mg/dL (NEG) Urine Ketones (Stick) Negative mg/dL (NEG) Urine Blood Negative (NEG) Urine Nitrite Negative (NEG) Urine Bilirubin Moderate (NEG) Urine Urobilinogen Dipstick 0.2 mg/dL (0.2 mg/dL) Urine Leukocyte Esterase Trace (NEG) Urine RBC 0 /HPF (0-2) Urine WBC Occ /HPF (0-4) Urine Squamous Epithelial Cells Few /LPF Urine Bacteria Few /HPF (0-FEW) White Blood Count 6.2 x10^3/uL (4.0-11.0) Red Blood Count 4.47 x10^6/uL (3.50-5.40) Hemoglobin 14.0 g/dL (12.0-15.5) Hematocrit 41.3 % (36.0-47.0) Mean Corpuscular Volume 92 fL (79-100) Mean Corpuscular Hemoglobin 31 pg (25-35) Mean Corpuscular Hemoglobin Concent 34 g/dL (31-37) Red Cell Distribution Width 16.7 % (11.5-14.5) Platelet Count 304 x10^3/uL (140-400) Neutrophils (%) (Auto) 66 % (31-73) Lymphocytes (%) (Auto) 23 % (24-48) Monocytes (%) (Auto) 8 % (0-9) Eosinophils (%) (Auto) 3 % (0-3) Basophils (%) (Auto) 1 % (0-3) Neutrophils # (Auto) 4.1 x10^3/uL (1.8-7.7) Lymphocytes # (Auto) 1.4 x10^3/uL (1.0-4.8) Monocytes # (Auto) 0.5 x10^3/uL (0.0-1.1) Eosinophils # (Auto) 0.2 x10^3/uL (0.0-0.7) Basophils # (Auto) 0.1 x10^3/uL (0.0-0.2) Prothrombin Time 12.6 SEC (11.7-14.0) Prothromb Time International Ratio 1.0 (0.8-1.1) Activated Partial Thromboplast Time 33 SEC (24-38) Sodium Level 140 mmol/L (136-145) Potassium Level 4.1 mmol/L (3.5-5.1) Chloride Level 101 mmol/L (98-107) Carbon Dioxide Level 25 mmol/L (21-32) Anion Gap 14 (6-14) Blood Urea Nitrogen 18 mg/dL (7-20) Creatinine 1.1 mg/dL (0.6-1.0) Estimated GFR (Cockcroft-Gault) 47.7 BUN/Creatinine Ratio 16 (6-20) Glucose Level 151 mg/dL (70-99) Calcium Level 9.6 mg/dL (8.5-10.1) Total Bilirubin 10.3 mg/dL (0.2-1.0) Aspartate Amino Transf (AST/SGOT) 329 U/L (15-37) Alanine Aminotransferase (ALT/SGPT) 480 U/L (14-59) Alkaline Phosphatase 493 U/L (46-116) Total Protein 8.3 g/dL (6.4-8.2) Albumin 3.5 g/dL (3.4-5.0) Albumin/Globulin Ratio 0.7 (1.0-1.7) Lipase 184 U/L (73-393) Ammonia 31 mcmol/L (11-34) Images Images CT with dilated biliary system without obvious mass, prior cholecystectomy Assessment/Plan Assessment/Plan Jaundice with bilirubin over 10 associated with pruritus for the last 3 weeks. Mild decrease in appetite without nausea or vomiting. No abdominal pain is reported. Her urines are dark and her stools are light, with dilated biliary system on CT, all consistent with obstructive jaundice. Need to consider biliary obstruction and with painless jaundice the concern is stricture or tumor rather than common bile duct stone although none of those issues can be excluded at this point Prior cholecystectomy- 2015 Pruritus- most likely related to elevated bilirubin and obstructive jaundice. Empiric treatment at this point to control itching is recommended but biliary drainage is the most effective treatment Plan: We'll discuss with Dr. Bingham regarding ERCP with biliary drainage tomorrow. Coag studies were normal check labs. RADHA ROWLEY MD Apr 27, 2019 14:24
[2019-04-27 15:12] VITALS: BP 129/76
[2019-04-27 19:40] VITALS: BP 130/79
[2019-04-27 23:20] VITALS: BP 121/68
[2019-04-28 03:31] VITALS: BP 126/77
[2019-04-28 05:45] LABS: BASO # 0.1 x10^3/uL (0.0-0.2); BASO % 1 % (0-3); EOS # 0.2 x10^3/uL (0.0-0.7); EOS % 3 % (0-3); HEMATOCRIT 41.2 % (36.0-47.0); HEMOGLOBIN 13.5 g/dL (12.0-15.5); LYMPH # 2.1 x10^3/uL (1.0-4.8); LYMPH % 30 % (24-48); MEAN CORPUSCULAR HEMOGLOBIN 31 pg (25-35); MEAN CORPUSCULAR HGB CONC 33 g/dL (31-37); MEAN CORPUSCULAR VOLUME 94 fL (79-100); MONO # 0.5 x10^3/uL (0.0-1.1); MONO % 8 % (0-9); NEUT # 4.1 x10^3/uL (1.8-7.7); NEUT % 59 % (31-73); PLATELET COUNT 303 x10^3/uL (140-400); RED BLOOD COUNT 4.39 x10^6/uL (3.50-5.40); RED CELL DISTRIBUTION WIDTH 17.4 % (11.5-14.5); WHITE BLOOD COUNT 7.1 x10^3/uL (4.0-11.0)
[2019-04-28 06:04] LABS: ALBUMIN 3.3 g/dL (3.4-5.0); ALBUMIN/GLOBULIN RATIO 0.7 (1.0-1.7); CALCIUM 9.3 mg/dL (8.5-10.1); CREATININE 0.8 mg/dL (0.6-1.0); GFR 68.8; POTASSIUM 3.9 mmol/L (3.5-5.1); TOTAL BILIRUBIN 11.4 mg/dL (0.2-1.0); TOTAL PROTEIN 8.1 g/dL (6.4-8.2)
--- NOTE | 2019-04-28 06:37 | EKG ---
[facility] [address] [place] [address] Test Date: 2019-04-26 Test Time: 12:46:14 Pat Name: ANDREW LA Department: Room: 648 1 Gender: F Design Maker: : [id number] Requested By: SRINIVASA ABDULLAHI Order Number: [id number] Reading MD: Deion Abdullahi MD Measurements Intervals [place] Rate: 67 P: 40 MD: 170 QRS: 22 QRSD: 82 T: 29 QT: 398 QTc: 423 Interpretive Statements SINUS RHYTHM Electronically Signed On 05-13-2019 23:32:49 CDT by Deion Abdullahi MD
[2019-04-28 07:00] VITALS: BP 136/80
--- NOTE | 2019-04-28 08:33 | NUR ---
SW following pt for dc planning. Chart reviewed and pt lives at home with spouse. GI following. No SW needs noted at this time. Will continue to follow pending dc needs. Addendum: 04/29/19 at 0829 by AMY QUIROS SW Per Rehab screen, Pt is independent with ambulation. No skilled intervention needed at this time.
[2019-04-28] MEDS: MORPHINE SULFATE 2 MG/ML VIAL. IV PRN ×2 (08:35→12:37)
[2019-04-28] MEDS: SERTRALINE 50 MG TABLET. PO SCH (08:54)
[2019-04-28] MEDS: traMADol 50 MG TABLET PO SCH ×3 (08:54→20:40)
[2019-04-28] MEDS: GABAPENTIN 300 MG CAPSULE. PO SCH ×3 (08:54→20:39)
[2019-04-28] MEDS: POLYETHYLENE GLYCOL 3350 17 GM PACKET. PO SCH (08:54)
[2019-04-28] MEDS: CHOLESTYRAMINE/ASPARTAME 4 GM PACKET PO SCH ×2 (08:55→22:09)
--- NOTE | 2019-04-28 09:52 | PDOC ---
PROGRESS NOTES Subjective Subjective labs reviewed. bilirubin 11.4. has epigastric pain intermittently but is better. has pruritis Objective Objective Vital Signs Date Time Temp Pulse Resp B/P (MAP) Pulse Ox O2 Delivery O2 Flow Rate FiO2 04/28/19 07:00 98.3 70 16 136/80 (98) 94 Room Air 98.3 Intake and Output 04/28/19 07:00 Intake Total 1060 ml Balance 1060 ml Intake Oral 1060 ml # Voids 4 Physical Exam Abdomen: Soft, Other (tender RUQ and epigastrium) Heart: Regular rate, Normal S1, Normal S2, No murmurs Extremities: No edema General: Alert HEENT: Atraumatic Lungs: Clear to auscultation Neuro: Normal speech Psych/Mental Status: Mental status NL Skin: No rashes Assessment Assessment Problems1.obstructive jaundice severe generalized pruritis nausea epigastric pain hypertension hyperlipidemia. off atorvastatin fibromyalgia Medical Problems: (1) Acute hepatitis Status: Acute (2) Epigastric pain Status: Acute (3) Generalized pruritus Status: Acute (4) Obstructive jaundice Status: Acute Plan Plan of Care ERCP today iv morphine or norco prn cholestyramine and prn hydroxyzine zofran prn Comment Review of Relevant I have reviewed the following items betty (where applicable) has been applied. Labs Laboratory Tests Test 04/26/19 10:40 04/26/19 10:55 04/26/19 11:18 04/28/19 05:00 Urine Collection Type Unknown Urine Color Rhoda Urine Clarity Clear Urine pH 6.0 Urine Specific [place] 1.010 Urine Protein Negative mg/dL (NEG-TRACE) Urine Glucose (UA) Negative mg/dL (NEG) Urine Ketones (Stick) Negative mg/dL (NEG) Urine Blood Negative (NEG) Urine Nitrite Negative (NEG) Urine Bilirubin Moderate (NEG) Urine Urobilinogen Dipstick 0.2 mg/dL (0.2 mg/dL) Urine Leukocyte Esterase Trace (NEG) Urine RBC 0 /HPF (0-2) Urine WBC Occ /HPF (0-4) Urine Squamous Epithelial Cells Few /LPF Urine Bacteria Few /HPF (0-FEW) White Blood Count 6.2 x10^3/uL (4.0-11.0) 7.1 x10^3/uL (4.0-11.0) Red Blood Count 4.47 x10^6/uL (3.50-5.40) 4.39 x10^6/uL (3.50-5.40) Hemoglobin 14.0 g/dL (12.0-15.5) 13.5 g/dL (12.0-15.5) Hematocrit 41.3 % (36.0-47.0) 41.2 % (36.0-47.0) Mean Corpuscular Volume 92 fL (79-100) 94 fL (79-100) Mean Corpuscular Hemoglobin 31 pg (25-35) 31 pg (25-35) Mean Corpuscular Hemoglobin Concent 34 g/dL (31-37) 33 g/dL (31-37) Red Cell Distribution Width 16.7 % (11.5-14.5) 17.4 % (11.5-14.5) Platelet Count 304 x10^3/uL (140-400) 303 x10^3/uL (140-400) Neutrophils (%) (Auto) 66 % (31-73) 59 % (31-73) Lymphocytes (%) (Auto) 23 % (24-48) 30 % (24-48) Monocytes (%) (Auto) 8 % (0-9) 8 % (0-9) Eosinophils (%) (Auto) 3 % (0-3) 3 % (0-3) Basophils (%) (Auto) 1 % (0-3) 1 % (0-3) Neutrophils # (Auto) 4.1 x10^3/uL (1.8-7.7) 4.1 x10^3/uL (1.8-7.7) Lymphocytes # (Auto) 1.4 x10^3/uL (1.0-4.8) 2.1 x10^3/uL (1.0-4.8) Monocytes # (Auto) 0.5 x10^3/uL (0.0-1.1) 0.5 x10^3/uL (0.0-1.1) Eosinophils # (Auto) 0.2 x10^3/uL (0.0-0.7) 0.2 x10^3/uL (0.0-0.7) Basophils # (Auto) 0.1 x10^3/uL (0.0-0.2) 0.1 x10^3/uL (0.0-0.2) Prothrombin Time 12.6 SEC (11.7-14.0) Prothromb Time International Ratio 1.0 (0.8-1.1) Activated Partial Thromboplast Time 33 SEC (24-38) Sodium Level 140 mmol/L (136-145) 141 mmol/L (136-145) Potassium Level 4.1 mmol/L (3.5-5.1) 3.9 mmol/L (3.5-5.1) Chloride Level 101 mmol/L (98-107) 104 mmol/L (98-107) Carbon Dioxide Level 25 mmol/L (21-32) 26 mmol/L (21-32) Anion Gap 14 (6-14) 11 (6-14) Blood Urea Nitrogen 18 mg/dL (7-20) 12 mg/dL (7-20) Creatinine 1.1 mg/dL (0.6-1.0) 0.8 mg/dL (0.6-1.0) Estimated GFR (Cockcroft-Gault) 47.7 68.8 BUN/Creatinine Ratio 16 (6-20) 15 (6-20) Glucose Level 151 mg/dL (70-99) 108 mg/dL (70-99) Calcium Level 9.6 mg/dL (8.5-10.1) 9.3 mg/dL (8.5-10.1) Total Bilirubin 10.3 mg/dL (0.2-1.0) 11.4 mg/dL (0.2-1.0) Aspartate Amino Transf (AST/SGOT) 329 U/L (15-37) 216 U/L (15-37) Alanine Aminotransferase (ALT/SGPT) 480 U/L (14-59) 366 U/L (14-59) Alkaline Phosphatase 493 U/L (46-116) 471 U/L (46-116) Total Protein 8.3 g/dL (6.4-8.2) 8.1 g/dL (6.4-8.2) Albumin 3.5 g/dL (3.4-5.0) 3.3 g/dL (3.4-5.0) Albumin/Globulin Ratio 0.7 (1.0-1.7) 0.7 (1.0-1.7) Lipase 184 U/L (73-393) Ammonia 31 mcmol/L (11-34) Laboratory Tests Test 04/28/19 05:00 White Blood Count 7.1 x10^3/uL (4.0-11.0) Red Blood Count 4.39 x10^6/uL (3.50-5.40) Hemoglobin 13.5 g/dL (12.0-15.5) Hematocrit 41.2 % (36.0-47.0) Mean Corpuscular Volume 94 fL (79-100) Mean Corpuscular Hemoglobin 31 pg (25-35) Mean Corpuscular Hemoglobin Concent 33 g/dL (31-37) Red Cell Distribution Width 17.4 % (11.5-14.5) Platelet Count 303 x10^3/uL (140-400) Neutrophils (%) (Auto) 59 % (31-73) Lymphocytes (%) (Auto) 30 % (24-48) Monocytes (%) (Auto) 8 % (0-9) Eosinophils (%) (Auto) 3 % (0-3) Basophils (%) (Auto) 1 % (0-3) Neutrophils # (Auto) 4.1 x10^3/uL (1.8-7.7) Lymphocytes # (Auto) 2.1 x10^3/uL (1.0-4.8) Monocytes # (Auto) 0.5 x10^3/uL (0.0-1.1) Eosinophils # (Auto) 0.2 x10^3/uL (0.0-0.7) Basophils # (Auto) 0.1 x10^3/uL (0.0-0.2) Sodium Level 141 mmol/L (136-145) Potassium Level 3.9 mmol/L (3.5-5.1) Chloride Level 104 mmol/L (98-107) Carbon Dioxide Level 26 mmol/L (21-32) Anion Gap 11 (6-14) Blood Urea Nitrogen 12 mg/dL (7-20) Creatinine 0.8 mg/dL (0.6-1.0) Estimated GFR (Cockcroft-Gault) 68.8 BUN/Creatinine Ratio 15 (6-20) Glucose Level 108 mg/dL (70-99) Calcium Level 9.3 mg/dL (8.5-10.1) Total Bilirubin 11.4 mg/dL (0.2-1.0) Aspartate Amino Transf (AST/SGOT) 216 U/L (15-37) Alanine Aminotransferase (ALT/SGPT) 366 U/L (14-59) Alkaline Phosphatase 471 U/L (46-116) Total Protein 8.1 g/dL (6.4-8.2) Albumin 3.3 g/dL (3.4-5.0) Albumin/Globulin Ratio 0.7 (1.0-1.7) Medications Current Medications Iohexol (Omnipaque 300 Mg/ml) 60 ml 1X ONCE IV Last administered on 04/26/19at 12:06; Start 04/26/19 at 12:30; Stop 04/26/19 at 12:31; Status DC Info (CONTRAST GIVEN -- Rx MONITORING) 1 each PRN DAILY PRN MC SEE COMMENTS; Start 04/26/19 at 12:00; Stop 04/28/19 at 11:59 Ondansetron HCl (Zofran) 4 mg PRN Q6HRS PRN IV NAUSEA/VOMITING; Start 04/26/19 at 12:30 Cholestyramine Resin (Questran Light) 4 gm BID@1000,2200 PO Last administered on 04/27/19at 21:04; Start 04/26/19 at 22:00 Hydroxyzine HCl (Atarax) 25 mg PRN Q6HRS PRN PO ITCHING Last administered on 04/27/19at 23:56; Start 04/26/19 at 12:30 Morphine Sulfate (Morphine Sulfate) 2 mg PRN Q6HRS PRN IV SEVERE PAIN 7-10; Start 04/26/19 at 12:30; Stop 04/26/19 at 12:42; Status DC Acetaminophen/ Hydrocodone Bitart (Lortab 5/325) 1 tab PRN Q6HRS PRN PO MILD PAIN / TEMP; Start 04/26/19 at 12:30; Stop 04/26/19 at 12:42; Status DC Gabapentin (Neurontin) 300 mg TID PO Last administered on 04/27/19at 20:13; Start 04/26/19 at 14:00 Lorazepam (Ativan) 0.5 mg PRN BID PRN PO AGITATION; Start 04/26/19 at 12:30 Sertraline HCl (Zoloft) 50 mg DAILY PO Last administered on 04/27/19 08:30; Start 04/27/19 at 09:00 Tramadol HCl (Ultram) 50 mg TID PO Last administered on 04/27/19at 20:13; Start 04/26/19 at 14:00 Acetaminophen (Tylenol) 325 mg PRN Q6HRS PRN PO MILD PAIN / TEMP; Start 04/26/19 at 12:30 Polyethylene Glycol (miraLAX PACKET) 17 gm DAILY PO Last administered on 04/27/19at 17:52; Start 04/27/19 at 09:00 Magnesium Hydroxide (Milk Of Magnesia) 2,400 mg PRN DAILY PRN PO CONSTIPATION; Start 04/26/19 at 12:30 Acetaminophen/ Hydrocodone Bitart (Lortab 5/325) 1 tab PRN Q4HRS PRN PO PAIN Last administered on 04/26/19at 23:51; Start 04/26/19 at 12:45 Morphine Sulfate (Morphine Sulfate) 1 mg PRN Q4HRS PRN IV SEVERE PAIN 7-10 Last administered on 04/28/19at 08:35; Start 04/26/19 at 12:45 Levofloxacin/ Dextrose 100 ml @ 100 mls/hr 1X ONCE IV Last administered on 04/28/19 08:31; Start 04/28/19 at 07:15; Stop 04/28/19 at 08:14; Status DC Active Scripts Active Zoloft (Sertraline Hcl) 50 Mg Tablet 50 Mg PO DAILY [Polyethylene Glycol 3350] 17 GM Packet 17 Gm PO DAILY [Oxycodone Hcl/Acetaminophen] 1 TAB Tablet 1 Tab PO PRN Q4HRS PRN Neurontin (Gabapentin) 300 Mg Capsule 300 Mg PO TID [Amoxicillin/Potassium Clav] 1 TAB Tablet 1 Tab PO BID [Amitriptyline Hcl] 50 MG Tablet 50 Mg PO QHS Lipitor (Atorvastatin Calcium) 10 Mg Tablet 10 Mg PO QHS Vitals/I & O Vital Sign - Last 24 Hours 04/27/19 04/27/19 04/27/19 04/27/19 10:58 11:55 15:12 19:40 Temp 98.4 98.5 98.4 98.4 98.5 98.4 Pulse 90 93 70 Resp 18 18 16 B/P (MAP) 131/65 (87) 129/76 (93) 130/79 (96) Pulse Ox 94 94 94 92 O2 Delivery Room Air Room Air Room Air Room Air 04/27/19 04/27/19 04/27/19 04/27/19 20:00 20:13 21:15 23:20 Temp 98.4 98.4 Pulse 72 Resp 16 16 B/P (MAP) 121/68 (85) Pulse Ox 92 92 95 O2 Delivery Room Air Room Air Room Air Room Air 04/27/19 04/28/19 04/28/19 04/28/19 23:30 00:00 03:31 07:00 Temp 98.0 98.3 98.0 98.3 Pulse 74 70 Resp 16 18 16 B/P (MAP) 126/77 (93) 136/80 (98) Pulse Ox 95 95 97 94 O2 Delivery Room Air Room Air Room Air Room Air Intake and Output 04/27/19 04/27/19 04/28/19 15:00 23:00 07:00 Intake Total 480 ml 380 ml 200 ml Balance 480 ml 380 ml 200 ml SRINIVASA ABDULLAHI MD Apr 28, 2019 09:52
[2019-04-28 11:00] VITALS: BP 156/83
[2019-04-28] MEDS ORDERED: IV RINGERS,LACTATED 1000ML 1,000 ML IV ONE (12:15)
[2019-04-28] MEDS ORDERED: IOHEXOL 300 MG/ML 100ML VIAL. ONE (13:24)
[2019-04-28] MEDS ORDERED: SUCCINYLCHOLINE 200 MG/10 ML VIAL. ONE (14:00)
[2019-04-28] MEDS ORDERED: PROPOFOL 10 MG/ML (20ML) VIAL. IV ONE (14:00)
[2019-04-28] MEDS ORDERED: PHENYLEPHRINE in 0.9% NACL PF 1 MG/10 ML SYRINGE. IV ONE (14:00)
[2019-04-28] MEDS ORDERED: FAMOTIDINE 20 MG/2 ML VIAL ONE (14:12)
[2019-04-28] MEDS ORDERED: DEXAMETHASONE SOD PHOS 20 MG/5 ML VIAL. ONE (14:13)
[2019-04-28] MEDS ORDERED: LIDOCAINE 2% PF 5 ML VIAL. ONE (15:00)
[2019-04-28] MEDS ORDERED: IOHEXOL 300 MG/ML 100ML VIAL. IV ONE (16:20)
--- NOTE | 2019-04-28 16:46 | PDOC4 ---
PROCEDURE Procedure ERCP/ES/balloon sweep/balloon dilation/brushings Indication: obstructive jaundice. Meds: GETA Findings: E, G, D normal cursory exam Papilla small, normal with adjacent diverticulum. PD normal. CBD with filling defects distally, stricture mid-common duct with dilation above. ES done; multiple balloon sweeps w/o stones seen (during or after) though some blood passed. 1-2cm stricture as above; dilated to 8mm, then brushings from here. Elza. well. IMP: Filling defects w/o stones seen--clots from ;tumor bleeding? Bile dict stricture, dilated and brushed. Normal PD. REC: clears OK today. Follow labs Await brushings. Thanks. SRINIVASA OTERO MD Apr 28, 2019 16:46
[2019-04-28] MEDS ORDERED: fentaNYL PF VIAL 100 MCG/2 ML VIAL IV ONE (17:00)
--- NOTE | 2019-04-28 17:24 | RAD ---
Examination: ERCP BILIARY/PANCREATIC DUCT History: Elevated liver function enzymes Comparison/Correlation: 04/26/2019 abdominal ultrasound, 04/26/2019 CT abdomen and pelvis with contrast Findings: Fluoroscopy was utilized for 6 minutes 38 seconds. A total of 6 images are provided. Right upper quadrant surgical clips are present. Significant distention of the common bile duct and intrahepatic biliary tree is noted. Focal filling defect is not definitely delineated on the images provided. Narrowing of the common bile duct at its very distal aspect appears to be present. Impression: Narrowing of the very distal common bile duct. No focal filling defect definitely seen. Biliary dilatation is notable. Electronically signed by: Amos Matias MD (04/28/2019 5:21 PM) [facility]
[2019-04-28] MEDS: ONDANSETRON PF 4 MG/2 ML VIAL. IV PRN (17:41)
[2019-04-28] MEDS: HYDROcodone/APAP 5/325MG 1 TAB TABLET PO PRN ×2 (17:41→22:18)
[2019-04-28 19:20] VITALS: BP 152/93
[2019-04-28 23:47] VITALS: BP 139/88
[2019-04-29] MEDS: ONDANSETRON PF 4 MG/2 ML VIAL. IV PRN (01:04)
[2019-04-29] MEDS: MORPHINE SULFATE 2 MG/ML VIAL. IV PRN (01:11)
[2019-04-29] MEDS: POTASSIUM CL 20MEQ D5-0.45NACL 1,000 ML IV SCH ×2 (02:00→12:47)
[2019-04-29 03:00] VITALS: BP 164/96
[2019-04-29] MEDS: HYDROcodone/APAP 5/325MG 1 TAB TABLET PO PRN ×4 (04:26→20:43)
[2019-04-29 04:40] LABS: BASO % 0 % (0-3); EOS % 0 % (0-3); HEMATOCRIT 39.9 % (36.0-47.0); HEMOGLOBIN 13.3 g/dL (12.0-15.5); LYMPH # 0.8 x10^3/uL (1.0-4.8); LYMPH % 13 % (24-48); MEAN CORPUSCULAR HEMOGLOBIN 31 pg (25-35); MEAN CORPUSCULAR HGB CONC 33 g/dL (31-37); MEAN CORPUSCULAR VOLUME 93 fL (79-100); MONO # 0.3 x10^3/uL (0.0-1.1); MONO % 5 % (0-9); NEUT # 5.4 x10^3/uL (1.8-7.7); NEUT % 82 % (31-73); PLATELET COUNT 316 x10^3/uL (140-400); RED BLOOD COUNT 4.29 x10^6/uL (3.50-5.40); RED CELL DISTRIBUTION WIDTH 17.2 % (11.5-14.5); WHITE BLOOD COUNT 6.6 x10^3/uL (4.0-11.0)
[2019-04-29] MEDS ORDERED: MORPHINE SULFATE 2 MG/ML VIAL. IV PRN (05:00)
[2019-04-29] MEDS ORDERED: PROCHLORPERAZINE 5 MG TABLET. PO PRN (05:00)
[2019-04-29 07:00] VITALS: BP 174/88
[2019-04-29 07:52] LABS: ALBUMIN/GLOBULIN RATIO 0.7 (1.0-1.7); CALCIUM 9.7 mg/dL (8.5-10.1); CREATININE 0.9 mg/dL (0.6-1.0); GFR 60.1; POTASSIUM 3.9 mmol/L (3.5-5.1); TOTAL PROTEIN 7.6 g/dL (6.4-8.2)
[2019-04-29] MEDS: SERTRALINE 50 MG TABLET. PO SCH (09:06)
[2019-04-29] MEDS: traMADol 50 MG TABLET PO SCH ×4 (09:06→20:41)
[2019-04-29] MEDS: GABAPENTIN 300 MG CAPSULE. PO SCH ×3 (09:06→20:43)
[2019-04-29] MEDS: POLYETHYLENE GLYCOL 3350 17 GM PACKET. PO SCH (09:07)
--- NOTE | 2019-04-29 09:56 | PDOC ---
Subjective: Subjective: Abd pain and nausea last night - better this morning, tolerating some clears. Now fibromyalgia is really bothersome, wants her usual dose of Tramadol but says she can't have it because of her liver. Objective: Vital Signs: Vital Signs Date Time Temp Pulse Resp B/P (MAP) Pulse Ox O2 Delivery O2 Flow Rate FiO2 04/29/19 09:25 93 Room Air 5.0 04/29/19 03:00 98.2 87 20 164/96 (118) 98.2 Labs: Laboratory Tests Test 04/29/19 03:00 White Blood Count 6.6 x10^3/uL Red Blood Count 4.29 x10^6/uL Hemoglobin 13.3 g/dL Hematocrit 39.9 % Mean Corpuscular Volume 93 fL Mean Corpuscular Hemoglobin 31 pg Mean Corpuscular Hemoglobin Concent 33 g/dL Red Cell Distribution Width 17.2 % Platelet Count 316 x10^3/uL Neutrophils (%) (Auto) 82 % Lymphocytes (%) (Auto) 13 % Monocytes (%) (Auto) 5 % Eosinophils (%) (Auto) 0 % Basophils (%) (Auto) 0 % Neutrophils # (Auto) 5.4 x10^3/uL Lymphocytes # (Auto) 0.8 x10^3/uL Monocytes # (Auto) 0.3 x10^3/uL Eosinophils # (Auto) 0.0 x10^3/uL Basophils # (Auto) 0.0 x10^3/uL Sodium Level 140 mmol/L Potassium Level 3.9 mmol/L Chloride Level 102 mmol/L Carbon Dioxide Level 24 mmol/L Anion Gap 14 Blood Urea Nitrogen 13 mg/dL Creatinine 0.9 mg/dL Estimated GFR (Cockcroft-Gault) 60.1 BUN/Creatinine Ratio 14 Glucose Level 183 mg/dL Calcium Level 9.7 mg/dL Total Bilirubin 11.0 mg/dL Aspartate Amino Transf (AST/SGOT) 153 U/L Alanine Aminotransferase (ALT/SGPT) 298 U/L Alkaline Phosphatase 433 U/L Total Protein 7.6 g/dL Albumin 3.0 g/dL Albumin/Globulin Ratio 0.7 Imaging: ERCP/ES/balloon sweep/balloon dilation/brushings Indication: obstructive jaundice. Findings: E, G, D normal cursory exam Papilla small, normal with adjacent diverticulum. PD normal. CBD with filling defects distally, stricture mid-common duct with dilation above. ES done; multiple balloon sweeps w/o stones seen (during or after) though some blood passed. 1-2cm stricture as above; dilated to 8mm, then brushings from here. IMP: Filling defects w/o stones seen--clots from ;tumor bleeding? Bile dict stricture, dilated and brushed. Normal PD. PE: GEN: NAD LUNGS: CTAB HEART: RRR ABD: NABS, S/ND/NT SKIN: +jaundice NEURO/PSYCH: A & O �3, anxious A/P: Obstructive jaundice s/p ERCP - filling defects/clots (?tumor bleeding), bile duct stricture (dilated/brushed) Abd pain, nausea - better Fibromyalgia -- Await brushings. CORI PEDERSEN Apr 29, 2019 09:56
--- NOTE | 2019-04-29 10:14 | PDOC ---
PROGRESS NOTES Subjective Subjective complained of insomnia and epigastric pain and severe nausea and vomited and fibromyalgia pain. lab reviewed. ERCP report and notes reviewed. itching is better. bp is high at times possibly due to pain. Objective Objective Vital Signs Date Time Temp Pulse Resp B/P (MAP) Pulse Ox O2 Delivery O2 Flow Rate FiO2 04/29/19 09:25 93 Room Air 5.0 04/29/19 03:00 98.2 87 20 164/96 (118) 98.2 Intake and Output 04/29/19 07:00 Intake Total 1400 ml Balance 1400 ml Intake Oral 400 ml IV Total 1000 ml # Voids 3 Physical Exam Abdomen: Soft, Other (epigastric tenderness) Heart: Regular rate, Normal S1, Normal S2 Extremities: No edema General: Alert HEENT: Atraumatic Lungs: Clear to auscultation Neuro: Normal speech Psych/Mental Status: Mental status NL Skin: No rashes, Other (jaundiced) Assessment Assessment Problemsobstructive jaundice . distal CBD stricture. some bleeding with BX brushings severe generalized pruritus better nausea and vomiting epigastric pain hypertension hyperlipidemia. off atorvastatin fibromyalgia Medical Problems: Medical Problems: (1) Acute hepatitis Status: Acute (2) Epigastric pain Status: Acute (3) Generalized pruritus Status: Acute (4) Obstructive jaundice Status: Acute Plan Plan of Care increase morphine sulfate iv start iv fluids increase prn iv zofran increase tramadol and resume hs elavil at a lower dose lab tomorrow check amylase and lipase await brushing path report continue cholestyramine and prn hydroxyzine Comment Review of Relevant I have reviewed the following items betty (where applicable) has been applied. Labs Laboratory Tests Test 04/28/19 05:00 04/29/19 03:00 White Blood Count 7.1 x10^3/uL (4.0-11.0) 6.6 x10^3/uL (4.0-11.0) Red Blood Count 4.39 x10^6/uL (3.50-5.40) 4.29 x10^6/uL (3.50-5.40) Hemoglobin 13.5 g/dL (12.0-15.5) 13.3 g/dL (12.0-15.5) Hematocrit 41.2 % (36.0-47.0) 39.9 % (36.0-47.0) Mean Corpuscular Volume 94 fL (79-100) 93 fL (79-100) Mean Corpuscular Hemoglobin 31 pg (25-35) 31 pg (25-35) Mean Corpuscular Hemoglobin Concent 33 g/dL (31-37) 33 g/dL (31-37) Red Cell Distribution Width 17.4 % (11.5-14.5) 17.2 % (11.5-14.5) Platelet Count 303 x10^3/uL (140-400) 316 x10^3/uL (140-400) Neutrophils (%) (Auto) 59 % (31-73) 82 % (31-73) Lymphocytes (%) (Auto) 30 % (24-48) 13 % (24-48) Monocytes (%) (Auto) 8 % (0-9) 5 % (0-9) Eosinophils (%) (Auto) 3 % (0-3) 0 % (0-3) Basophils (%) (Auto) 1 % (0-3) 0 % (0-3) Neutrophils # (Auto) 4.1 x10^3/uL (1.8-7.7) 5.4 x10^3/uL (1.8-7.7) Lymphocytes # (Auto) 2.1 x10^3/uL (1.0-4.8) 0.8 x10^3/uL (1.0-4.8) Monocytes # (Auto) 0.5 x10^3/uL (0.0-1.1) 0.3 x10^3/uL (0.0-1.1) Eosinophils # (Auto) 0.2 x10^3/uL (0.0-0.7) 0.0 x10^3/uL (0.0-0.7) Basophils # (Auto) 0.1 x10^3/uL (0.0-0.2) 0.0 x10^3/uL (0.0-0.2) Sodium Level 141 mmol/L (136-145) 140 mmol/L (136-145) Potassium Level 3.9 mmol/L (3.5-5.1) 3.9 mmol/L (3.5-5.1) Chloride Level 104 mmol/L (98-107) 102 mmol/L (98-107) Carbon Dioxide Level 26 mmol/L (21-32) 24 mmol/L (21-32) Anion Gap 11 (6-14) 14 (6-14) Blood Urea Nitrogen 12 mg/dL (7-20) 13 mg/dL (7-20) Creatinine 0.8 mg/dL (0.6-1.0) 0.9 mg/dL (0.6-1.0) Estimated GFR (Cockcroft-Gault) 68.8 60.1 BUN/Creatinine Ratio 15 (6-20) 14 (6-20) Glucose Level 108 mg/dL (70-99) 183 mg/dL (70-99) Calcium Level 9.3 mg/dL (8.5-10.1) 9.7 mg/dL (8.5-10.1) Total Bilirubin 11.4 mg/dL (0.2-1.0) 11.0 mg/dL (0.2-1.0) Aspartate Amino Transf (AST/SGOT) 216 U/L (15-37) 153 U/L (15-37) Alanine Aminotransferase (ALT/SGPT) 366 U/L (14-59) 298 U/L (14-59) Alkaline Phosphatase 471 U/L (46-116) 433 U/L (46-116) Total Protein 8.1 g/dL (6.4-8.2) 7.6 g/dL (6.4-8.2) Albumin 3.3 g/dL (3.4-5.0) 3.0 g/dL (3.4-5.0) Albumin/Globulin Ratio 0.7 (1.0-1.7) 0.7 (1.0-1.7) Laboratory Tests Test 04/29/19 03:00 White Blood Count 6.6 x10^3/uL (4.0-11.0) Red Blood Count 4.29 x10^6/uL (3.50-5.40) Hemoglobin 13.3 g/dL (12.0-15.5) Hematocrit 39.9 % (36.0-47.0) Mean Corpuscular Volume 93 fL (79-100) Mean Corpuscular Hemoglobin 31 pg (25-35) Mean Corpuscular Hemoglobin Concent 33 g/dL (31-37) Red Cell Distribution Width 17.2 % (11.5-14.5) Platelet Count 316 x10^3/uL (140-400) Neutrophils (%) (Auto) 82 % (31-73) Lymphocytes (%) (Auto) 13 % (24-48) Monocytes (%) (Auto) 5 % (0-9) Eosinophils (%) (Auto) 0 % (0-3) Basophils (%) (Auto) 0 % (0-3) Neutrophils # (Auto) 5.4 x10^3/uL (1.8-7.7) Lymphocytes # (Auto) 0.8 x10^3/uL (1.0-4.8) Monocytes # (Auto) 0.3 x10^3/uL (0.0-1.1) Eosinophils # (Auto) 0.0 x10^3/uL (0.0-0.7) Basophils # (Auto) 0.0 x10^3/uL (0.0-0.2) Sodium Level 140 mmol/L (136-145) Potassium Level 3.9 mmol/L (3.5-5.1) Chloride Level 102 mmol/L (98-107) Carbon Dioxide Level 24 mmol/L (21-32) Anion Gap 14 (6-14) Blood Urea Nitrogen 13 mg/dL (7-20) Creatinine 0.9 mg/dL (0.6-1.0) Estimated GFR (Cockcroft-Gault) 60.1 BUN/Creatinine Ratio 14 (6-20) Glucose Level 183 mg/dL (70-99) Calcium Level 9.7 mg/dL (8.5-10.1) Total Bilirubin 11.0 mg/dL (0.2-1.0) Aspartate Amino Transf (AST/SGOT) 153 U/L (15-37) Alanine Aminotransferase (ALT/SGPT) 298 U/L (14-59) Alkaline Phosphatase 433 U/L (46-116) Total Protein 7.6 g/dL (6.4-8.2) Albumin 3.0 g/dL (3.4-5.0) Albumin/Globulin Ratio 0.7 (1.0-1.7) Medications Current Medications Iohexol (Omnipaque 300 Mg/ml) 60 ml 1X ONCE IV Last administered on 04/26/19at 12:06; Start 04/26/19 at 12:30; Stop 04/26/19 at 12:31; Status DC Info (CONTRAST GIVEN -- Rx MONITORING) 1 each PRN DAILY PRN MC SEE COMMENTS; Start 04/26/19 at 12:00; Stop 04/28/19 at 11:59; Status DC Ondansetron HCl (Zofran) 4 mg PRN Q6HRS PRN IV NAUSEA/VOMITING Last administered on 04/29/19at 01:04; Start 04/26/19 at 12:30; Stop 04/29/19 at 04:56; Status DC Cholestyramine Resin (Questran Light) 4 gm BID@1000,2200 PO Last administered on 04/28/19 22:09; Start 04/26/19 at 22:00 Hydroxyzine HCl (Atarax) 25 mg PRN Q6HRS PRN PO ITCHING Last administered on 04/27/19at 23:56; Start 04/26/19 at 12:30 Morphine Sulfate (Morphine Sulfate) 2 mg PRN Q6HRS PRN IV SEVERE PAIN 7-10; Start 04/26/19 at 12:30; Stop 04/26/19 at 12:42; Status DC Acetaminophen/ Hydrocodone Bitart (Lortab 5/325) 1 tab PRN Q6HRS PRN PO MILD PAIN / TEMP; Start 04/26/19 at 12:30; Stop 04/26/19 at 12:42; Status DC Gabapentin (Neurontin) 300 mg TID PO Last administered on 04/29/19 09:09; Start 04/26/19 at 14:00 Lorazepam (Ativan) 0.5 mg PRN BID PRN PO AGITATION; Start 04/26/19 at 12:30 Sertraline HCl (Zoloft) 50 mg DAILY PO Last administered on 04/29/19 09:09; Start 04/27/19 at 09:00 Tramadol HCl (Ultram) 50 mg TID PO Last administered on 04/29/19 09:09; Start 04/26/19 at 14:00 Acetaminophen (Tylenol) 325 mg PRN Q6HRS PRN PO MILD PAIN / TEMP; Start 04/26/19 at 12:30 Polyethylene Glycol (miraLAX PACKET) 17 gm DAILY PO Last administered on 04/29/19 09:09; Start 04/27/19 at 09:00 Magnesium Hydroxide (Milk Of Magnesia) 2,400 mg PRN DAILY PRN PO CONSTIPATION Last administered on 04/29/19 02:34; Start 04/26/19 at 12:30 Acetaminophen/ Hydrocodone Bitart (Lortab 5/325) 1 tab PRN Q4HRS PRN PO PAIN Last administered on 04/29/19 09:25; Start 04/26/19 at 12:45 Morphine Sulfate (Morphine Sulfate) 1 mg PRN Q4HRS PRN IV SEVERE PAIN 7-10 Last administered on 04/29/19 01:11; Start 04/26/19 at 12:45; Stop 04/29/19 at 04:56; Status DC Levofloxacin/ Dextrose 100 ml @ 100 mls/hr 1X ONCE IV Last administered on 04/28/19 08:31; Start 04/28/19 at 07:15; Stop 04/28/19 at 08:14; Status DC Ringer's Solution 1,000 ml @ 75 mls/hr 1X ONCE IV Last administered on 04/28/19at 14:43; Start 04/28/19 at 12:15; Stop 04/29/19 at 01:34; Status DC Iohexol (Omnipaque 300 Mg/ml) 100 ml STK-MED ONCE .ROUTE ; Start 04/28/19 at 13:24; Stop 04/28/19 at 13:25; Status DC Famotidine (Pepcid Vial) 20 mg STK-MED ONCE .ROUTE ; Start 04/28/19 at 14:12; Stop 04/28/19 at 14:13; Status DC Dexamethasone Sodium Phosphate (Decadron) 20 mg STK-MED ONCE .ROUTE ; Start 04/28/19 at 14:13; Stop 04/28/19 at 14:14; Status DC Lidocaine HCl (Lidocaine Pf 2% Vial) 5 ml STK-MED ONCE .ROUTE ; Start 04/28/19 at 15:00; Stop 04/28/19 at 15:01; Status DC Iohexol (Omnipaque 300 Mg/ml) 100 ml STK-MED ONCE IV Last administered on 04/28/19at 16:20; Start 04/28/19 at 16:20; Stop 04/28/19 at 16:48; Status DC Fentanyl Citrate (Fentanyl 2ml Vial) 25 mcg 1X ONCE IV Last administered on 04/28/19at 17:05; Start 04/28/19 at 17:00; Stop 04/28/19 at 17:01; Status DC Morphine Sulfate (Morphine Sulfate) 2 mg PRN Q4HRS PRN IV SEVERE PAIN 7-10; Start 04/29/19 at 05:00 Ondansetron HCl (Zofran) 8 mg PRN Q6HRS PRN IV NAUSEA/VOMITING, 1ST CHOICE; Start 04/29/19 at 05:00 Prochlorperazine Maleate (Compazine) 10 mg PRN Q6HRS PRN PO NAUSEA/VOMITING; Start 04/29/19 at 05:00 Active Scripts Active Zoloft (Sertraline Hcl) 50 Mg Tablet 50 Mg PO DAILY [Polyethylene Glycol 3350] 17 GM Packet 17 Gm PO DAILY [Oxycodone Hcl/Acetaminophen] 1 TAB Tablet 1 Tab PO PRN Q4HRS PRN Neurontin (Gabapentin) 300 Mg Capsule 300 Mg PO TID [Amoxicillin/Potassium Clav] 1 TAB Tablet 1 Tab PO BID [Amitriptyline Hcl] 50 MG Tablet 50 Mg PO QHS Lipitor (Atorvastatin Calcium) 10 Mg Tablet 10 Mg PO QHS Vitals/I & O Vital Sign - Last 24 Hours 04/28/19 04/28/19 04/28/19 04/28/19 11:00 14:37 14:39 16:43 Temp 98.2 99.3 97.5 98.2 99.3 97.5 Pulse 67 72 91 Resp 16 20 16 B/P (MAP) 156/83 (107) 125/70 Pulse Ox 93 96 96 O2 Delivery Room Air Room Air Simple Mask O2 Flow Rate 5 04/28/19 04/28/19 04/28/19 04/28/19 16:57 17:05 17:12 19:20 Temp 98.2 98.2 Pulse 87 83 88 Resp 16 16 16 18 B/P (MAP) 136/71 133/75 152/93 (112) Pulse Ox 99 97 97 94 O2 Delivery Room Air Room Air Room Air Room Air 04/28/19 04/28/19 04/28/19 04/28/19 20:00 20:40 21:48 22:18 O2 Delivery Room Air Room Air Room Air Room Air 04/28/19 04/28/19 04/29/19 04/29/19 23:18 23:47 01:11 01:40 Temp 97.7 97.7 Pulse 67 Resp 16 B/P (MAP) 139/88 (105) Pulse Ox 95 O2 Delivery Room Air Room Air Room Air Room Air 04/29/19 04/29/19 04/29/19 04/29/19 03:00 04:26 08:34 09:09 Temp 98.2 98.2 Pulse 87 Resp 20 B/P (MAP) 164/96 (118) Pulse Ox 93 93 93 O2 Delivery Room Air Room Air Room Air Room Air O2 Flow Rate 5.0 5.0 04/29/19 09:25 Pulse Ox 93 O2 Delivery Room Air O2 Flow Rate 5.0 Intake and Output 04/28/19 04/28/19 04/29/19 15:00 23:00 07:00 Intake Total 1150 ml 250 ml Balance 1150 ml 250 ml [email or web address] MD Apr 29, 2019 10:14
[2019-04-29 11:00] VITALS: BP 151/88
[2019-04-29] MEDS: CHOLESTYRAMINE/ASPARTAME 4 GM PACKET PO SCH ×2 (12:47→20:42)
[2019-04-29 15:00] VITALS: BP 166/92
[2019-04-29 19:02] VITALS: BP 136/78
[2019-04-29] MEDS: hydrOXYzine 25 MG TABLET PO PRN (20:40)
[2019-04-29] MEDS: AMITRIPTYLINE HCL 25 MG TABLET. PO SCH (20:41)
[2019-04-29 23:02] VITALS: BP 130/72
[2019-04-30 03:42] VITALS: BP 139/83
[2019-04-30 05:00] LABS: BASO % 1 % (0-3); EOS # 0.1 x10^3/uL (0.0-0.7); EOS % 1 % (0-3); HEMATOCRIT 34.9 % (36.0-47.0); HEMOGLOBIN 11.7 g/dL (12.0-15.5); LYMPH # 1.6 x10^3/uL (1.0-4.8); LYMPH % 25 % (24-48); MEAN CORPUSCULAR HEMOGLOBIN 31 pg (25-35); MEAN CORPUSCULAR HGB CONC 34 g/dL (31-37); MEAN CORPUSCULAR VOLUME 93 fL (79-100); MONO # 0.5 x10^3/uL (0.0-1.1); MONO % 8 % (0-9); NEUT # 4.2 x10^3/uL (1.8-7.7); NEUT % 65 % (31-73); PLATELET COUNT 274 x10^3/uL (140-400); RED BLOOD COUNT 3.76 x10^6/uL (3.50-5.40); RED CELL DISTRIBUTION WIDTH 17.8 % (11.5-14.5); WHITE BLOOD COUNT 6.5 x10^3/uL (4.0-11.0)
[2019-04-30 06:30] LABS: ALBUMIN 2.6 g/dL (3.4-5.0); CALCIUM 9.2 mg/dL (8.5-10.1); CREATININE 0.8 mg/dL (0.6-1.0); DIRECT BILIRUBIN 11.4 mg/dL (0.0-0.2); GFR 68.8; POTASSIUM 3.9 mmol/L (3.5-5.1); TOTAL BILIRUBIN 14.1 mg/dL (0.2-1.0); TOTAL PROTEIN 6.5 g/dL (6.4-8.2)
[2019-04-30 07:00] VITALS: BP 135/60
[2019-04-30] MEDS: CHOLESTYRAMINE/ASPARTAME 4 GM PACKET PO SCH ×2 (10:16→22:21)
[2019-04-30] MEDS: POLYETHYLENE GLYCOL 3350 17 GM PACKET. PO SCH (10:16)
[2019-04-30] MEDS: GABAPENTIN 300 MG CAPSULE. PO SCH ×3 (10:16→20:28)
[2019-04-30] MEDS: traMADol 50 MG TABLET PO SCH ×4 (10:17→20:29)
[2019-04-30] MEDS: SERTRALINE 50 MG TABLET. PO SCH (10:17)
--- NOTE | 2019-04-30 10:45 | PDOC ---
PROGRESS NOTES Subjective Subjective has epigastric pain and tenderness and amylase 794 and lipase 5260 consistent with post ERCP acute pancreatitis. bilirubin up to 14. Objective Objective Vital Signs Date Time Temp Pulse Resp B/P (MAP) Pulse Ox O2 Delivery O2 Flow Rate FiO2 04/30/19 07:00 98.7 78 20 135/60 (85) 94 Room Air 98.7 04/29/19 18:26 5.0 Intake and Output 04/30/19 06:59 Intake Total 470 ml Output Total 1 ml Balance 469 ml Intake Oral 470 ml Output Urine Total 1 ml # Voids 3 Physical Exam Abdomen: Soft, Other (epigastric tenderness) Heart: Regular rate, Normal S1, Normal S2 Extremities: No edema General: Alert HEENT: Atraumatic, Other (sclera icteric) Lungs: Clear to auscultation Neuro: Normal speech Psych/Mental Status: Mental status NL Skin: Other (jaundiced) Assessment Assessment Problemsobstructive jaundice . distal CBD stricture dilated. some bleeding with BX brushings severe generalized pruritus better nausea and vomiting epigastric pain hypertension hyperlipidemia. off atorvastatin fibromyalgia post ERCP acute pancreatitis Medical Problems: (1) Acute hepatitis Status: Acute (2) Epigastric pain Status: Acute (3) Generalized pruritus Status: Acute (4) Obstructive jaundice Status: Acute Plan Plan of Care clear liquids PPN analgesics await pathology report rest the pancreas Comment Review of Relevant I have reviewed the following items betty (where applicable) has been applied. Labs Laboratory Tests Test 04/29/19 03:00 04/30/19 03:35 White Blood Count 6.6 x10^3/uL (4.0-11.0) 6.5 x10^3/uL (4.0-11.0) Red Blood Count 4.29 x10^6/uL (3.50-5.40) 3.76 x10^6/uL (3.50-5.40) Hemoglobin 13.3 g/dL (12.0-15.5) 11.7 g/dL (12.0-15.5) Hematocrit 39.9 % (36.0-47.0) 34.9 % (36.0-47.0) Mean Corpuscular Volume 93 fL (79-100) 93 fL (79-100) Mean Corpuscular Hemoglobin 31 pg (25-35) 31 pg (25-35) Mean Corpuscular Hemoglobin Concent 33 g/dL (31-37) 34 g/dL (31-37) Red Cell Distribution Width 17.2 % (11.5-14.5) 17.8 % (11.5-14.5) Platelet Count 316 x10^3/uL (140-400) 274 x10^3/uL (140-400) Neutrophils (%) (Auto) 82 % (31-73) 65 % (31-73) Lymphocytes (%) (Auto) 13 % (24-48) 25 % (24-48) Monocytes (%) (Auto) 5 % (0-9) 8 % (0-9) Eosinophils (%) (Auto) 0 % (0-3) 1 % (0-3) Basophils (%) (Auto) 0 % (0-3) 1 % (0-3) Neutrophils # (Auto) 5.4 x10^3/uL (1.8-7.7) 4.2 x10^3/uL (1.8-7.7) Lymphocytes # (Auto) 0.8 x10^3/uL (1.0-4.8) 1.6 x10^3/uL (1.0-4.8) Monocytes # (Auto) 0.3 x10^3/uL (0.0-1.1) 0.5 x10^3/uL (0.0-1.1) Eosinophils # (Auto) 0.0 x10^3/uL (0.0-0.7) 0.1 x10^3/uL (0.0-0.7) Basophils # (Auto) 0.0 x10^3/uL (0.0-0.2) 0.0 x10^3/uL (0.0-0.2) Sodium Level 140 mmol/L (136-145) 142 mmol/L (136-145) Potassium Level 3.9 mmol/L (3.5-5.1) 3.9 mmol/L (3.5-5.1) Chloride Level 102 mmol/L (98-107) 107 mmol/L (98-107) Carbon Dioxide Level 24 mmol/L (21-32) 26 mmol/L (21-32) Anion Gap 14 (6-14) 9 (6-14) Blood Urea Nitrogen 13 mg/dL (7-20) 14 mg/dL (7-20) Creatinine 0.9 mg/dL (0.6-1.0) 0.8 mg/dL (0.6-1.0) Estimated GFR (Cockcroft-Gault) 60.1 68.8 BUN/Creatinine Ratio 14 (6-20) Glucose Level 183 mg/dL (70-99) 119 mg/dL (70-99) Calcium Level 9.7 mg/dL (8.5-10.1) 9.2 mg/dL (8.5-10.1) Total Bilirubin 11.0 mg/dL (0.2-1.0) 14.1 mg/dL (0.2-1.0) Aspartate Amino Transf (AST/SGOT) 153 U/L (15-37) 91 U/L (15-37) Alanine Aminotransferase (ALT/SGPT) 298 U/L (14-59) 189 U/L (14-59) Alkaline Phosphatase 433 U/L (46-116) 398 U/L (46-116) Total Protein 7.6 g/dL (6.4-8.2) 6.5 g/dL (6.4-8.2) Albumin 3.0 g/dL (3.4-5.0) 2.6 g/dL (3.4-5.0) Albumin/Globulin Ratio 0.7 (1.0-1.7) Direct Bilirubin 11.4 mg/dL (0.0-0.2) Amylase Level 794 U/L (25-115) Lipase 5260 U/L (73-393) Laboratory Tests Test 04/30/19 03:35 White Blood Count 6.5 x10^3/uL (4.0-11.0) Red Blood Count 3.76 x10^6/uL (3.50-5.40) Hemoglobin 11.7 g/dL (12.0-15.5) Hematocrit 34.9 % (36.0-47.0) Mean Corpuscular Volume 93 fL (79-100) Mean Corpuscular Hemoglobin 31 pg (25-35) Mean Corpuscular Hemoglobin Concent 34 g/dL (31-37) Red Cell Distribution Width 17.8 % (11.5-14.5) Platelet Count 274 x10^3/uL (140-400) Neutrophils (%) (Auto) 65 % (31-73) Lymphocytes (%) (Auto) 25 % (24-48) Monocytes (%) (Auto) 8 % (0-9) Eosinophils (%) (Auto) 1 % (0-3) Basophils (%) (Auto) 1 % (0-3) Neutrophils # (Auto) 4.2 x10^3/uL (1.8-7.7) Lymphocytes # (Auto) 1.6 x10^3/uL (1.0-4.8) Monocytes # (Auto) 0.5 x10^3/uL (0.0-1.1) Eosinophils # (Auto) 0.1 x10^3/uL (0.0-0.7) Basophils # (Auto) 0.0 x10^3/uL (0.0-0.2) Sodium Level 142 mmol/L (136-145) Potassium Level 3.9 mmol/L (3.5-5.1) Chloride Level 107 mmol/L (98-107) Carbon Dioxide Level 26 mmol/L (21-32) Anion Gap 9 (6-14) Blood Urea Nitrogen 14 mg/dL (7-20) Creatinine 0.8 mg/dL (0.6-1.0) Estimated GFR (Cockcroft-Gault) 68.8 Glucose Level 119 mg/dL (70-99) Calcium Level 9.2 mg/dL (8.5-10.1) Total Bilirubin 14.1 mg/dL (0.2-1.0) Direct Bilirubin 11.4 mg/dL (0.0-0.2) Aspartate Amino Transf (AST/SGOT) 91 U/L (15-37) Alanine Aminotransferase (ALT/SGPT) 189 U/L (14-59) Alkaline Phosphatase 398 U/L (46-116) Total Protein 6.5 g/dL (6.4-8.2) Albumin 2.6 g/dL (3.4-5.0) Amylase Level 794 U/L (25-115) Lipase 5260 U/L (73-393) Medications Current Medications Iohexol (Omnipaque 300 Mg/ml) 60 ml 1X ONCE IV Last administered on 04/26/19at 12:06; Start 04/26/19 at 12:30; Stop 04/26/19 at 12:31; Status DC Info (CONTRAST GIVEN -- Rx MONITORING) 1 each PRN DAILY PRN MC SEE COMMENTS; Start 04/26/19 at 12:00; Stop 04/28/19 at 11:59; Status DC Ondansetron HCl (Zofran) 4 mg PRN Q6HRS PRN IV NAUSEA/VOMITING Last administered on 04/29/19at 01:04; Start 04/26/19 at 12:30; Stop 04/29/19 at 04:56; Status DC Cholestyramine Resin (Questran Light) 4 gm BID@1000,2200 PO Last administered on 04/30/19at 10:17; Start 04/26/19 at 22:00 Hydroxyzine HCl (Atarax) 25 mg PRN Q6HRS PRN PO ITCHING Last administered on 04/29/19at 20:43; Start 04/26/19 at 12:30 Morphine Sulfate (Morphine Sulfate) 2 mg PRN Q6HRS PRN IV SEVERE PAIN 7-10; Start 04/26/19 at 12:30; Stop 04/26/19 at 12:42; Status DC Acetaminophen/ Hydrocodone Bitart (Lortab 5/325) 1 tab PRN Q6HRS PRN PO MILD PAIN / TEMP; Start 04/26/19 at 12:30; Stop 04/26/19 at 12:42; Status DC Gabapentin (Neurontin) 300 mg TID PO Last administered on 04/30/19at 10:17; Start 04/26/19 at 14:00 Lorazepam (Ativan) 0.5 mg PRN BID PRN PO AGITATION; Start 04/26/19 at 12:30 Sertraline HCl (Zoloft) 50 mg DAILY PO Last administered on 04/30/19at 10:17; Start 04/27/19 at 09:00 Tramadol HCl (Ultram) 50 mg TID PO Last administered on 04/29/19at 09:09; Start 04/26/19 at 14:00; Stop 04/29/19 at 10:09; Status DC Acetaminophen (Tylenol) 325 mg PRN Q6HRS PRN PO MILD PAIN / TEMP; Start 04/26/19 at 12:30 Polyethylene Glycol (miraLAX PACKET) 17 gm DAILY PO Last administered on 04/30/19 10:17; Start 04/27/19 at 09:00 Magnesium Hydroxide (Milk Of Magnesia) 2,400 mg PRN DAILY PRN PO CONSTIPATION Last administered on 04/29/19 02:34; Start 04/26/19 at 12:30 Acetaminophen/ Hydrocodone Bitart (Lortab 5/325) 1 tab PRN Q4HRS PRN PO PAIN Last administered on 04/29/19 20:43; Start 04/26/19 at 12:45 Morphine Sulfate (Morphine Sulfate) 1 mg PRN Q4HRS PRN IV SEVERE PAIN 7-10 Last administered on 04/29/19 01:11; Start 04/26/19 at 12:45; Stop 04/29/19 at 04:56; Status DC Levofloxacin/ Dextrose 100 ml @ 100 mls/hr 1X ONCE IV Last administered on 04/28/19 08:31; Start 04/28/19 at 07:15; Stop 04/28/19 at 08:14; Status DC Ringer's Solution 1,000 ml @ 75 mls/hr 1X ONCE IV Last administered on 04/28/19 14:43; Start 04/28/19 at 12:15; Stop 04/29/19 at 01:34; Status DC Iohexol (Omnipaque 300 Mg/ml) 100 ml STK-MED ONCE .ROUTE ; Start 04/28/19 at 13:24; Stop 04/28/19 at 13:25; Status DC Famotidine (Pepcid Vial) 20 mg STK-MED ONCE .ROUTE ; Start 04/28/19 at 14:12; Stop 04/28/19 at 14:13; Status DC Dexamethasone Sodium Phosphate (Decadron) 20 mg STK-MED ONCE .ROUTE ; Start 04/28/19 at 14:13; Stop 04/28/19 at 14:14; Status DC Lidocaine HCl (Lidocaine Pf 2% Vial) 5 ml STK-MED ONCE .ROUTE ; Start 04/28/19 at 15:00; Stop 04/28/19 at 15:01; Status DC Iohexol (Omnipaque 300 Mg/ml) 100 ml STK-MED ONCE IV Last administered on 04/28/19at 16:20; Start 04/28/19 at 16:20; Stop 04/28/19 at 16:48; Status DC Fentanyl Citrate (Fentanyl 2ml Vial) 25 mcg 1X ONCE IV Last administered on 04/28/19at 17:05; Start 04/28/19 at 17:00; Stop 04/28/19 at 17:01; Status DC Morphine Sulfate (Morphine Sulfate) 2 mg PRN Q4HRS PRN IV SEVERE PAIN 7-10; Start 04/29/19 at 05:00 Ondansetron HCl (Zofran) 8 mg PRN Q6HRS PRN IV NAUSEA/VOMITING, 1ST CHOICE; Start 04/29/19 at 05:00 Prochlorperazine Maleate (Compazine) 10 mg PRN Q6HRS PRN PO NAUSEA/VOMITING; Start 04/29/19 at 05:00 Tramadol HCl (Ultram) 50 mg QID PO Last administered on 04/30/19at 10:17; Start 04/29/19 at 13:00 Potassium Chloride/Dextrose/ Sod Cl 1,000 ml @ 75 mls/hr [id number] IV Last administered on 04/30/19at 02:53; Start 04/29/19 at 10:15 Amitriptyline HCl (Elavil) 25 mg QHS PO Last administered on 04/29/19at 20:43; Start 04/29/19 at 21:00 Phenylephrine HCl (PHENYLEPHRINE in 0.9% NACL PF) 1 mg STK-MED ONCE IV ; Start 04/28/19 at 14:00; Stop 04/29/19 at 13:10; Status DC Succinylcholine Chloride (Anectine) 200 mg STK-MED ONCE .ROUTE ; Start 04/28/19 at 14:00; Stop 04/29/19 at 13:10; Status DC Propofol (Diprivan) 200 mg STK-MED ONCE IV ; Start 04/28/19 at 14:00; Stop at 13:10; Status DC Active Scripts Active Zoloft (Sertraline Hcl) 50 Mg Tablet 50 Mg PO DAILY [Polyethylene Glycol 3350] 17 GM Packet 17 Gm PO DAILY [Oxycodone Hcl/Acetaminophen] 1 TAB Tablet 1 Tab PO PRN Q4HRS PRN Neurontin (Gabapentin) 300 Mg Capsule 300 Mg PO TID [Amoxicillin/Potassium Clav] 1 TAB Tablet 1 Tab PO BID [Amitriptyline Hcl] 50 MG Tablet 50 Mg PO QHS Lipitor (Atorvastatin Calcium) 10 Mg Tablet 10 Mg PO QHS Vitals/I & O Vital Sign - Last 24 Hours 04/29/19 04/29/19 04/29/19 04/29/19 11:00 12:48 13:49 13:49 Temp 98.6 98.6 Pulse 84 Resp 12 B/P (MAP) 151/88 (109) Pulse Ox 92 93 93 93 O2 Delivery Room Air Room Air Room Air Room Air O2 Flow Rate 5.0 5.0 5.0 04/29/19 04/29/19 04/29/19 04/29/19 13:52 15:00 15:59 17:17 Temp 98.4 98.4 Pulse 84 Resp 12 B/P (MAP) 166/92 (116) Pulse Ox 93 92 93 93 O2 Delivery Room Air Room Air Room Air Room Air O2 Flow Rate 5.0 5.0 5.0 04/29/19 04/29/19 04/29/19 04/29/19 17:17 18:26 19:02 20:00 Temp 97.5 97.5 Pulse 75 Resp 18 B/P (MAP) 136/78 (97) Pulse Ox 93 93 93 O2 Delivery Room Air Room Air Room Air Room Air O2 Flow Rate 5.0 5.0 04/29/19 04/29/19 04/29/19 04/30/19 20:43 20:43 23:02 00:10 Temp 97.9 97.9 Pulse 79 Resp 16 18 B/P (MAP) 130/72 (91) Pulse Ox 94 94 92 94 O2 Delivery Room Air Room Air Room Air Room Air 04/30/19 04/30/19 04/30/19 00:10 03:42 07:00 Temp 98.2 98.7 98.2 98.7 Pulse 72 78 Resp 18 16 20 B/P (MAP) 139/83 (101) 135/60 (85) Pulse Ox 94 95 94 O2 Delivery Room Air Room Air Room Air Intake and Output 04/29/19 04/29/19 04/30/19 14:59 22:59 06:59 Intake Total 120 ml 150 ml 200 ml Output Total 1 ml Balance 119 ml 150 ml 200 ml SRINIVASA ABDULLAHI MD Apr 30, 2019 10:45
[2019-04-30 11:00] VITALS: BP 137/80
--- NOTE | 2019-04-30 11:41 | PDOC ---
Subjective: Subjective: Feeling better. A little sore, some itching. Tolerating PO. Objective: Vital Signs: Vital Signs Date Time Temp Pulse Resp B/P (MAP) Pulse Ox O2 Delivery O2 Flow Rate FiO2 04/30/19 07:00 98.7 78 20 135/60 (85) 94 Room Air 98.7 04/29/19 18:26 5.0 Labs: Laboratory Tests Test 04/30/19 03:35 White Blood Count 6.5 x10^3/uL Red Blood Count 3.76 x10^6/uL Hemoglobin 11.7 g/dL Hematocrit 34.9 % Mean Corpuscular Volume 93 fL Mean Corpuscular Hemoglobin 31 pg Mean Corpuscular Hemoglobin Concent 34 g/dL Red Cell Distribution Width 17.8 % Platelet Count 274 x10^3/uL Neutrophils (%) (Auto) 65 % Lymphocytes (%) (Auto) 25 % Monocytes (%) (Auto) 8 % Eosinophils (%) (Auto) 1 % Basophils (%) (Auto) 1 % Neutrophils # (Auto) 4.2 x10^3/uL Lymphocytes # (Auto) 1.6 x10^3/uL Monocytes # (Auto) 0.5 x10^3/uL Eosinophils # (Auto) 0.1 x10^3/uL Basophils # (Auto) 0.0 x10^3/uL Sodium Level 142 mmol/L Potassium Level 3.9 mmol/L Chloride Level 107 mmol/L Carbon Dioxide Level 26 mmol/L Anion Gap 9 Blood Urea Nitrogen 14 mg/dL Creatinine 0.8 mg/dL Estimated GFR (Cockcroft-Gault) 68.8 Glucose Level 119 mg/dL Calcium Level 9.2 mg/dL Total Bilirubin 14.1 mg/dL Direct Bilirubin 11.4 mg/dL Aspartate Amino Transf (AST/SGOT) 91 U/L Alanine Aminotransferase (ALT/SGPT) 189 U/L Alkaline Phosphatase 398 U/L Total Protein 6.5 g/dL Albumin 2.6 g/dL Amylase Level 794 U/L Lipase 5260 U/L PE: GEN: NAD - looks better than yesterday, sitting on edge of bed LUNGS: CTAB HEART: RRR ABD: soft, vaguely tender SKIN: +jaundice NEURO/PSYCH: A & O �3 A/P: Obstructive jaundice s/p ERCP - filling defects/clots (?tumor bleeding), bile duct stricture (dilated/brushed) Abd pain - better Pruritus -- Awaiting brushings, consider transfer to [facility]. CORI PEDERSEN Apr 30, 2019 11:41
[2019-04-30] MEDS: AMINO AC 3%/ELECTROLYTE/GLYCER 1,000 ML IV SCH ×2 (14:32→22:22)
[2019-04-30 15:00] VITALS: BP 159/84
[2019-04-30 19:00] VITALS: BP 137/80
[2019-04-30] MEDS: AMITRIPTYLINE HCL 25 MG TABLET. PO SCH (20:28)
[2019-04-30] MEDS: hydrOXYzine 25 MG TABLET PO PRN (20:31)
[2019-04-30 23:00] VITALS: BP 138/78
[2019-05-01 03:18] VITALS: BP 127/70
[2019-05-01] MEDS: hydrOXYzine 25 MG TABLET PO PRN ×3 (04:34→21:49)
[2019-05-01 05:06] LABS: BASO # 0.1 x10^3/uL (0.0-0.2); BASO % 1 % (0-3); EOS # 0.3 x10^3/uL (0.0-0.7); EOS % 4 % (0-3); HEMATOCRIT 36.7 % (36.0-47.0); HEMOGLOBIN 12.4 g/dL (12.0-15.5); LYMPH # 2.2 x10^3/uL (1.0-4.8); LYMPH % 27 % (24-48); MEAN CORPUSCULAR HEMOGLOBIN 31 pg (25-35); MEAN CORPUSCULAR HGB CONC 34 g/dL (31-37); MEAN CORPUSCULAR VOLUME 93 fL (79-100); MONO # 0.5 x10^3/uL (0.0-1.1); MONO % 7 % (0-9); NEUT # 4.9 x10^3/uL (1.8-7.7); NEUT % 62 % (31-73); PLATELET COUNT 326 x10^3/uL (140-400); RED BLOOD COUNT 3.97 x10^6/uL (3.50-5.40); RED CELL DISTRIBUTION WIDTH 17.3 % (11.5-14.5)
[2019-05-01 05:54] LABS: ALBUMIN 2.8 g/dL (3.4-5.0); CALCIUM 9.3 mg/dL (8.5-10.1); CREATININE 0.9 mg/dL (0.6-1.0); DIRECT BILIRUBIN 6.9 mg/dL (0.0-0.2); GFR 60.1; POTASSIUM 4.5 mmol/L (3.5-5.1); TOTAL BILIRUBIN 8.6 mg/dL (0.2-1.0); TOTAL PROTEIN 6.7 g/dL (6.4-8.2)
[2019-05-01 07:00] VITALS: BP 149/88
[2019-05-01] MEDS: traMADol 50 MG TABLET PO SCH ×4 (08:19→21:38)
[2019-05-01] MEDS: SERTRALINE 50 MG TABLET. PO SCH (08:19)
[2019-05-01] MEDS: GABAPENTIN 300 MG CAPSULE. PO SCH ×3 (08:19→21:38)
[2019-05-01] MEDS: POLYETHYLENE GLYCOL 3350 17 GM PACKET. PO SCH ×2 (08:19→08:21)
--- NOTE | 2019-05-01 09:49 | PDOC ---
Subjective: Subjective: "Not too whippy" today. Itching, some nausea. Objective: Objective: MRCP ordered yesterday, had clears for breakfast. Vital Signs: Vital Signs Date Time Temp Pulse Resp B/P (MAP) Pulse Ox O2 Delivery O2 Flow Rate FiO2 05/01/19 09:20 97 Room Air 5.0 05/01/19 07:00 98.1 65 16 149/88 (108) 98.1 Labs: Laboratory Tests Test 05/01/19 04:30 White Blood Count 8.0 x10^3/uL Red Blood Count 3.97 x10^6/uL Hemoglobin 12.4 g/dL Hematocrit 36.7 % Mean Corpuscular Volume 93 fL Mean Corpuscular Hemoglobin 31 pg Mean Corpuscular Hemoglobin Concent 34 g/dL Red Cell Distribution Width 17.3 % Platelet Count 326 x10^3/uL Neutrophils (%) (Auto) 62 % Lymphocytes (%) (Auto) 27 % Monocytes (%) (Auto) 7 % Eosinophils (%) (Auto) 4 % Basophils (%) (Auto) 1 % Neutrophils # (Auto) 4.9 x10^3/uL Lymphocytes # (Auto) 2.2 x10^3/uL Monocytes # (Auto) 0.5 x10^3/uL Eosinophils # (Auto) 0.3 x10^3/uL Basophils # (Auto) 0.1 x10^3/uL Sodium Level 140 mmol/L Potassium Level 4.5 mmol/L Chloride Level 104 mmol/L Carbon Dioxide Level 25 mmol/L Anion Gap 11 Blood Urea Nitrogen 18 mg/dL Creatinine 0.9 mg/dL Estimated GFR (Cockcroft-Gault) 60.1 Glucose Level 108 mg/dL Calcium Level 9.3 mg/dL Total Bilirubin 8.6 mg/dL Direct Bilirubin 6.9 mg/dL Aspartate Amino Transf (AST/SGOT) 67 U/L Alanine Aminotransferase (ALT/SGPT) 167 U/L Alkaline Phosphatase 457 U/L Total Protein 6.7 g/dL Albumin 2.8 g/dL Amylase Level 139 U/L Lipase 787 U/L PE: GEN: NAD LUNGS: CTAB HEART: RRR ABD: soft, mild discomfort SKIN: rubbing legs back and forth between sheets NEURO/PSYCH: A & O �3 A/P: Obstructive jaundice s/p ERCP w/ stricture - brushings pending, LFTs and lipase better (except Alk Phos) Nausea, pruritus -- Awaiting MRCP. CORI PEDERSEN May 01, 2019 09:49
[2019-05-01] MEDS: CHOLESTYRAMINE/ASPARTAME 4 GM PACKET PO SCH ×2 (10:00→21:38)
[2019-05-01 11:00] VITALS: BP 162/107
--- NOTE | 2019-05-01 12:31 | PDOC ---
PROGRESS NOTES Subjective Subjective has lots of nausea but less abdominal pain. has pruritus. lab reviewed. amylase and lipase and total bilirubin lower. discussed with patient and her and dr. ching and Nancie borrego. brushings to be reviewed by a cytopathologist today. may need to transfer to [facility] to a metal biliary stent which is not done at [facility].. bp is high and will start amlodipine. Objective Objective Vital Signs Date Time Temp Pulse Resp B/P (MAP) Pulse Ox O2 Delivery O2 Flow Rate FiO2 05/01/19 11:00 98.2 79 17 162/107 (125) 94 Room Air 98.2 05/01/19 09:20 5.0 Intake and Output 05/01/19 07:00 Intake Total 450 ml Balance 450 ml Intake Oral 450 ml # Voids 7 Physical Exam Abdomen: Soft, Other (epigastric tenderness) Heart: Regular rate, Normal S1, Normal S2 Extremities: No edema General: Alert HEENT: Atraumatic, Other (sclera icteric) Lungs: Clear to auscultation Neuro: Normal speech Psych/Mental Status: Mental status NL Skin: No rashes, Other (jaundice) Assessment Assessment Problemsobstructive jaundice . distal CBD stricture dilated. some bleeding with BX brushings severe generalized pruritus nausea epigastric pain hypertension hyperlipidemia. off atorvastatin fibromyalgia post ERCP acute pancreatitis hypertension Medical Problems: (1) Acute hepatitis Status: Acute (2) Epigastric pain Status: Acute (3) Generalized pruritus Status: Acute (4) Obstructive jaundice Status: Acute Plan Plan of Care await path report continue PPN MRCP today clear liquids iv zofran prn iv morphine sulfate oral norco prn cholestyramine and prn hydroxyzine lab tomorrow start amlodipine Comment Review of Relevant I have reviewed the following items betty (where applicable) has been applied. Labs Laboratory Tests Test 04/30/19 03:35 05/01/19 04:30 White Blood Count 6.5 x10^3/uL (4.0-11.0) 8.0 x10^3/uL (4.0-11.0) Red Blood Count 3.76 x10^6/uL (3.50-5.40) 3.97 x10^6/uL (3.50-5.40) Hemoglobin 11.7 g/dL (12.0-15.5) 12.4 g/dL (12.0-15.5) Hematocrit 34.9 % (36.0-47.0) 36.7 % (36.0-47.0) Mean Corpuscular Volume 93 fL (79-100) 93 fL (79-100) Mean Corpuscular Hemoglobin 31 pg (25-35) 31 pg (25-35) Mean Corpuscular Hemoglobin Concent 34 g/dL (31-37) 34 g/dL (31-37) Red Cell Distribution Width 17.8 % (11.5-14.5) 17.3 % (11.5-14.5) Platelet Count 274 x10^3/uL (140-400) 326 x10^3/uL (140-400) Neutrophils (%) (Auto) 65 % (31-73) 62 % (31-73) Lymphocytes (%) (Auto) 25 % (24-48) 27 % (24-48) Monocytes (%) (Auto) 8 % (0-9) 7 % (0-9) Eosinophils (%) (Auto) 1 % (0-3) 4 % (0-3) Basophils (%) (Auto) 1 % (0-3) 1 % (0-3) Neutrophils # (Auto) 4.2 x10^3/uL (1.8-7.7) 4.9 x10^3/uL (1.8-7.7) Lymphocytes # (Auto) 1.6 x10^3/uL (1.0-4.8) 2.2 x10^3/uL (1.0-4.8) Monocytes # (Auto) 0.5 x10^3/uL (0.0-1.1) 0.5 x10^3/uL (0.0-1.1) Eosinophils # (Auto) 0.1 x10^3/uL (0.0-0.7) 0.3 x10^3/uL (0.0-0.7) Basophils # (Auto) 0.0 x10^3/uL (0.0-0.2) 0.1 x10^3/uL (0.0-0.2) Sodium Level 142 mmol/L (136-145) 140 mmol/L (136-145) Potassium Level 3.9 mmol/L (3.5-5.1) 4.5 mmol/L (3.5-5.1) Chloride Level 107 mmol/L (98-107) 104 mmol/L (98-107) Carbon Dioxide Level 26 mmol/L (21-32) 25 mmol/L (21-32) Anion Gap 9 (6-14) 11 (6-14) Blood Urea Nitrogen 14 mg/dL (7-20) 18 mg/dL (7-20) Creatinine 0.8 mg/dL (0.6-1.0) 0.9 mg/dL (0.6-1.0) Estimated GFR (Cockcroft-Gault) 68.8 60.1 Glucose Level 119 mg/dL (70-99) 108 mg/dL (70-99) Calcium Level 9.2 mg/dL (8.5-10.1) 9.3 mg/dL (8.5-10.1) Total Bilirubin 14.1 mg/dL (0.2-1.0) 8.6 mg/dL (0.2-1.0) Direct Bilirubin 11.4 mg/dL (0.0-0.2) 6.9 mg/dL (0.0-0.2) Aspartate Amino Transf (AST/SGOT) 91 U/L (15-37) 67 U/L (15-37) Alanine Aminotransferase (ALT/SGPT) 189 U/L (14-59) 167 U/L (14-59) Alkaline Phosphatase 398 U/L (46-116) 457 U/L (46-116) Total Protein 6.5 g/dL (6.4-8.2) 6.7 g/dL (6.4-8.2) Albumin 2.6 g/dL (3.4-5.0) 2.8 g/dL (3.4-5.0) Amylase Level 794 U/L (25-115) 139 U/L (25-115) Lipase 5260 U/L (73-393) 787 U/L (73-393) Laboratory Tests Test 05/01/19 04:30 White Blood Count 8.0 x10^3/uL (4.0-11.0) Red Blood Count 3.97 x10^6/uL (3.50-5.40) Hemoglobin 12.4 g/dL (12.0-15.5) Hematocrit 36.7 % (36.0-47.0) Mean Corpuscular Volume 93 fL (79-100) Mean Corpuscular Hemoglobin 31 pg (25-35) Mean Corpuscular Hemoglobin Concent 34 g/dL (31-37) Red Cell Distribution Width 17.3 % (11.5-14.5) Platelet Count 326 x10^3/uL (140-400) Neutrophils (%) (Auto) 62 % (31-73) Lymphocytes (%) (Auto) 27 % (24-48) Monocytes (%) (Auto) 7 % (0-9) Eosinophils (%) (Auto) 4 % (0-3) Basophils (%) (Auto) 1 % (0-3) Neutrophils # (Auto) 4.9 x10^3/uL (1.8-7.7) Lymphocytes # (Auto) 2.2 x10^3/uL (1.0-4.8) Monocytes # (Auto) 0.5 x10^3/uL (0.0-1.1) Eosinophils # (Auto) 0.3 x10^3/uL (0.0-0.7) Basophils # (Auto) 0.1 x10^3/uL (0.0-0.2) Sodium Level 140 mmol/L (136-145) Potassium Level 4.5 mmol/L (3.5-5.1) Chloride Level 104 mmol/L (98-107) Carbon Dioxide Level 25 mmol/L (21-32) Anion Gap 11 (6-14) Blood Urea Nitrogen 18 mg/dL (7-20) Creatinine 0.9 mg/dL (0.6-1.0) Estimated GFR (Cockcroft-Gault) 60.1 Glucose Level 108 mg/dL (70-99) Calcium Level 9.3 mg/dL (8.5-10.1) Total Bilirubin 8.6 mg/dL (0.2-1.0) Direct Bilirubin 6.9 mg/dL (0.0-0.2) Aspartate Amino Transf (AST/SGOT) 67 U/L (15-37) Alanine Aminotransferase (ALT/SGPT) 167 U/L (14-59) Alkaline Phosphatase 457 U/L (46-116) Total Protein 6.7 g/dL (6.4-8.2) Albumin 2.8 g/dL (3.4-5.0) Amylase Level 139 U/L (25-115) Lipase 787 U/L (73-393) Microbiology 04/26/19 Urine Culture - Final, Complete 04/26/19 Urine Culture Result 1 (QUEENIE) - Final, Complete Medications Current Medications Iohexol (Omnipaque 300 Mg/ml) 60 ml 1X ONCE IV Last administered on 04/26/19at 12:06; Start 04/26/19 at 12:30; Stop 04/26/19 at 12:31; Status DC Info (CONTRAST GIVEN -- Rx MONITORING) 1 each PRN DAILY PRN MC SEE COMMENTS; Start 04/26/19 at 12:00; Stop 04/28/19 at 11:59; Status DC Ondansetron HCl (Zofran) 4 mg PRN Q6HRS PRN IV NAUSEA/VOMITING Last administered on 04/29/19at 01:04; Start 04/26/19 at 12:30; Stop 04/29/19 at 04:56; Status DC Cholestyramine Resin (Questran Light) 4 gm BID@1000,2200 PO Last administered on 04/30/19at 22:22; Start 04/26/19 at 22:00 Hydroxyzine HCl (Atarax) 25 mg PRN Q6HRS PRN PO ITCHING Last administered on 05/01/19at 04:34; Start 04/26/19 at 12:30 Morphine Sulfate (Morphine Sulfate) 2 mg PRN Q6HRS PRN IV SEVERE PAIN 7-10; Start 04/26/19 at 12:30; Stop 04/26/19 at 12:42; Status DC Acetaminophen/ Hydrocodone Bitart (Lortab 5/325) 1 tab PRN Q6HRS PRN PO MILD PAIN / TEMP; Start 04/26/19 at 12:30; Stop 04/26/19 at 12:42; Status DC Gabapentin (Neurontin) 300 mg TID PO Last administered on 05/01/19at 08:20; Start 04/26/19 at 14:00 Lorazepam (Ativan) 0.5 mg PRN BID PRN PO AGITATION; Start 04/26/19 at 12:30 Sertraline HCl (Zoloft) 50 mg DAILY PO Last administered on 05/01/19 08:20; Start 04/27/19 at 09:00 Tramadol HCl (Ultram) 50 mg TID PO Last administered on 04/29/19 09:09; Start 04/26/19 at 14:00; Stop 04/29/19 at 10:09; Status DC Acetaminophen (Tylenol) 325 mg PRN Q6HRS PRN PO MILD PAIN / TEMP; Start 04/26/19 at 12:30 Polyethylene Glycol (miraLAX PACKET) 17 gm DAILY PO Last administered on 04/30/19 10:17; Start 04/27/19 at 09:00 Magnesium Hydroxide (Milk Of Magnesia) 2,400 mg PRN DAILY PRN PO CONSTIPATION Last administered on 04/29/19 02:34; Start 04/26/19 at 12:30 Acetaminophen/ Hydrocodone Bitart (Lortab 5/325) 1 tab PRN Q4HRS PRN PO MODERATE PAIN Last administered on 04/29/19 20:43; Start 04/26/19 at 12:45 Morphine Sulfate (Morphine Sulfate) 1 mg PRN Q4HRS PRN IV SEVERE PAIN 7-10 Last administered on 04/29/19 01:11; Start 04/26/19 at 12:45; Stop 04/29/19 at 04:56; Status DC Levofloxacin/ Dextrose 100 ml @ 100 mls/hr 1X ONCE IV Last administered on 04/28/19 08:31; Start 04/28/19 at 07:15; Stop 04/28/19 at 08:14; Status DC Ringer's Solution 1,000 ml @ 75 mls/hr 1X ONCE IV Last administered on 04/28/19 14:43; Start 04/28/19 at 12:15; Stop 04/29/19 at 01:34; Status DC Iohexol (Omnipaque 300 Mg/ml) 100 ml STK-MED ONCE .ROUTE ; Start 04/28/19 at 13:24; Stop 04/28/19 at 13:25; Status DC Famotidine (Pepcid Vial) 20 mg STK-MED ONCE .ROUTE ; Start 04/28/19 at 14:12; Stop 04/28/19 at 14:13; Status DC Dexamethasone Sodium Phosphate (Decadron) 20 mg STK-MED ONCE .ROUTE ; Start 04/28/19 at 14:13; Stop 04/28/19 at 14:14; Status DC Lidocaine HCl (Lidocaine Pf 2% Vial) 5 ml STK-MED ONCE .ROUTE ; Start 04/28/19 at 15:00; Stop 04/28/19 at 15:01; Status DC Iohexol (Omnipaque 300 Mg/ml) 100 ml STK-MED ONCE IV Last administered on 04/28/19at 16:20; Start 04/28/19 at 16:20; Stop 04/28/19 at 16:48; Status DC Fentanyl Citrate (Fentanyl 2ml Vial) 25 mcg 1X ONCE IV Last administered on 04/28/19at 17:05; Start 04/28/19 at 17:00; Stop 04/28/19 at 17:01; Status DC Morphine Sulfate (Morphine Sulfate) 2 mg PRN Q4HRS PRN IV SEVERE PAIN 7-10; Start 04/29/19 at 05:00 Ondansetron HCl (Zofran) 8 mg PRN Q6HRS PRN IV NAUSEA/VOMITING, 1ST CHOICE; Start 04/29/19 at 05:00 Prochlorperazine Maleate (Compazine) 10 mg PRN Q6HRS PRN PO NAUSEA/VOMITING; Start 04/29/19 at 05:00 Tramadol HCl (Ultram) 50 mg QID PO Last administered on 05/01/19at 08:20; Start 04/29/19 at 13:00 Potassium Chloride/Dextrose/ Sod Cl 1,000 ml @ 75 mls/hr [id number] IV Last administered on 04/30/19at 02:53; Start 04/29/19 at 10:15; Stop 04/30/19 at 10:45; Status DC Amitriptyline HCl (Elavil) 25 mg QHS PO Last administered on 04/30/19at 20:29; Start 04/29/19 at 21:00 Phenylephrine HCl (PHENYLEPHRINE in 0.9% NACL PF) 1 mg STK-MED ONCE IV ; Start 04/28/19 at 14:00; Stop 04/29/19 at 13:10; Status DC Succinylcholine Chloride (Anectine) 200 mg STK-MED ONCE .ROUTE ; Start 04/28/19 at 14:00; Stop 04/29/19 at 13:10; Status DC Propofol (Diprivan) 200 mg STK-MED ONCE IV ; Start 04/28/19 at 14:00; Stop 04/29/19 at 13:10; Status DC Amino Acids/ Glycerin/ Electrolytes 1,000 ml @ 80 mls/hr [id number] IV Last administered on 04/30/19at 22:22; Start 04/30/19 at 10:45 Active Scripts Active Zoloft (Sertraline Hcl) 50 Mg Tablet 50 Mg PO DAILY [Polyethylene Glycol 3350] 17 GM Packet 17 Gm PO DAILY [Oxycodone Hcl/Acetaminophen] 1 TAB Tablet 1 Tab PO PRN Q4HRS PRN Neurontin (Gabapentin) 300 Mg Capsule 300 Mg PO TID [Amoxicillin/Potassium Clav] 1 TAB Tablet 1 Tab PO BID [Amitriptyline Hcl] 50 MG Tablet 50 Mg PO QHS Lipitor (Atorvastatin Calcium) 10 Mg Tablet 10 Mg PO QHS Vitals/I & O Vital Sign - Last 24 Hours 04/30/19 04/30/19 04/30/19 04/30/19 15:00 19:00 20:00 20:29 Temp 98.0 99.0 98.0 99.0 Pulse 73 77 Resp 18 16 16 B/P (MAP) 159/84 (109) 137/80 (99) Pulse Ox 96 95 96 O2 Delivery Room Air Room Air Room Air Room Air 04/30/19 04/30/19 05/01/19 05/01/19 22:23 23:00 03:18 07:00 Temp 97.8 98.7 98.1 97.8 98.7 98.1 Pulse 81 75 65 Resp 16 16 16 16 B/P (MAP) 138/78 (98) 127/70 (89) 149/88 (108) Pulse Ox 96 95 94 97 O2 Delivery Room Air Room Air Room Air Room Air 05/01/19 05/01/19 05/01/19 05/01/19 08:00 08:20 09:20 11:00 Temp 98.2 98.2 Pulse 79 Resp 17 B/P (MAP) 162/107 (125) Pulse Ox 97 97 94 O2 Delivery Room Air Room Air Room Air Room Air O2 Flow Rate 5.0 5.0 Intake and Output 04/30/19 04/30/19 05/01/19 15:00 23:00 07:00 Intake Total 120 ml 330 ml Balance 120 ml 330 ml SRINIVASA ABDULLAHI MD May 01, 2019 12:31
[2019-05-01] MEDS ORDERED: hydrALAZINE 20 MG/ML VIAL. IVP PRN (12:45)
[2019-05-01] MEDS: amLODIPine BESYLATE 5 MG TABLET PO SCH (14:33)
[2019-05-01 15:00] VITALS: BP 164/87
[2019-05-01] MEDS: HYDROcodone/APAP 5/325MG 1 TAB TABLET PO PRN (15:31)
[2019-05-01] MEDS: AMINO AC 3%/ELECTROLYTE/GLYCER 1,000 ML IV SCH (15:31)
--- NOTE | 2019-05-01 16:06 | PATHOLOGY ---
Note [facility] Accession Number: [id number] TESTS RESULT FLAG UNITS REF RANGE LAB Clinician Provided Cytology Information No. of containers..01 Other (Miscellaneous) Source: [A] 01 CBD STRICTURE DIAGNOSIS: [A] 02 CBD STRICTURE SUSPICIOUS FOR MALIGNANCY. HIGHLY ATYPICAL CELLS IDENTIFIED SUSPICUIOUS FOR ADENOCARCINOMA. COMMENT: THE CASE IS ALSO EXAMINED BY DR. JIMENES, CYTOPATHOLOGIST, WHO CONCURS WITH THE DIAGNOSIS. Signed out by: 02 Kane Carranza MD, Pathologist NPI- [id number] Performed by: Shira Loving, Nuclear Plant Construction Worker ([facility]) Gross description: 01 30ML, RED, CLOUDY /LCS FLAG LEGEND: L-Low Normal,H-High Normal,LL-Alert Low,HH-Alert High <-Panic Low,>-Panic High,A-Abnormal,AA-Critical Abnormal Performed at: 01 [facility] [place] [address] [place] [address] Dani Guerrero MD, 02 [facility] [address] [place] [address] Kane Carranza MD, Specimen Comment: A courtesy copy of this report has been sent to Specimen Comment: [phone], . Specimen Comment: Report sent to DR OTERO / DR ABDULLAHI Specimen Comment: A duplicate report has been generated due to demographic updates. Performed at: 01 [facility] [address], [place], [place] [id number] MD Dani Guerrero MD Phone: [phone]
[2019-05-01 19:00] VITALS: BP 150/93
[2019-05-01] MEDS: AMITRIPTYLINE HCL 25 MG TABLET. PO SCH (21:38)
[2019-05-01 23:00] VITALS: BP 155/77
--- NOTE | 2019-05-01 23:41 | RAD ---
EXAM: MRI ABDOMEN WITHOUT CONTRAST. HISTORY: Common duct stricture. TECHNIQUE: MRI of the abdomen was performed without intravenous contrast. Three-dimensional reconstructions of the biliary tree were also performed. COMPARISON: 04/28/2019, 04/26/2019. FINDINGS: Liver: Hepatic parenchymal signal loss on opposed phase images indicates mild diffuse hepatic steatosis. There are no suspicious hepatic lesions without contrast. Biliary tree: The gallbladder is surgically absent. The proximal common duct is dilated to 13 mm. There is an abrupt stricture at the level of the pancreatic head. The common duct is not detectable across a 2 cm segment and is decompressed distally. There is some ill-defined nonmass-like low-density soft tissue at the level of the stricture. This results in diffusion restriction. The pancreatic duct is not dilated. Other findings: The kidneys, adrenal glands and spleen are unremarkable. A duodenal diverticulum along the fourth portion measures 3.6 cm. IMPRESSION: 1. Severe stricture along the common duct at the level of the pancreatic head. This appears to be secondary to nonmasslike scirrhous soft tissue along the superior aspect of the pancreatic concerning for pancreatic adenocarcinoma. Correlate with findings of ERCP. 2. No evidence of metastatic disease without contrast. Electronically signed by: Luc Castillo MD (05/01/2019 11:38 PM) [facility]
[2019-05-02 03:56] VITALS: BP 143/81
[2019-05-02 05:09] LABS: BASO # 0.1 x10^3/uL (0.0-0.2); BASO % 1 % (0-3); EOS # 0.3 x10^3/uL (0.0-0.7); EOS % 4 % (0-3); HEMOGLOBIN 12.2 g/dL (12.0-15.5); LYMPH # 1.5 x10^3/uL (1.0-4.8); LYMPH % 22 % (24-48); MEAN CORPUSCULAR HEMOGLOBIN 31 pg (25-35); MEAN CORPUSCULAR HGB CONC 34 g/dL (31-37); MEAN CORPUSCULAR VOLUME 92 fL (79-100); MONO # 0.6 x10^3/uL (0.0-1.1); MONO % 9 % (0-9); NEUT # 4.4 x10^3/uL (1.8-7.7); NEUT % 64 % (31-73); PLATELET COUNT 337 x10^3/uL (140-400); RED BLOOD COUNT 3.93 x10^6/uL (3.50-5.40); RED CELL DISTRIBUTION WIDTH 17.5 % (11.5-14.5); WHITE BLOOD COUNT 6.9 x10^3/uL (4.0-11.0)
[2019-05-02 05:17] LABS: ALBUMIN 2.7 g/dL (3.4-5.0); ALBUMIN/GLOBULIN RATIO 0.6 (1.0-1.7); CALCIUM 9.2 mg/dL (8.5-10.1); CREATININE 0.9 mg/dL (0.6-1.0); GFR 60.1; POTASSIUM 3.9 mmol/L (3.5-5.1); TOTAL BILIRUBIN 5.4 mg/dL (0.2-1.0); TOTAL PROTEIN 7.3 g/dL (6.4-8.2)
[2019-05-02] MEDS: AMINO AC 3%/ELECTROLYTE/GLYCER 1,000 ML IV SCH ×2 (06:29→13:31)
[2019-05-02] MEDS: ONDANSETRON PF 4 MG/2 ML VIAL. IV PRN (06:33)
[2019-05-02 07:05] VITALS: BP 148/84
[2019-05-02] MEDS: amLODIPine BESYLATE 5 MG TABLET PO SCH (08:29)
[2019-05-02] MEDS: GABAPENTIN 300 MG CAPSULE. PO SCH ×3 (08:29→21:45)
[2019-05-02] MEDS: SERTRALINE 50 MG TABLET. PO SCH (08:29)
[2019-05-02] MEDS: traMADol 50 MG TABLET PO SCH ×4 (08:30→21:44)
[2019-05-02] MEDS: POLYETHYLENE GLYCOL 3350 17 GM PACKET. PO SCH (08:30)
[2019-05-02] MEDS: CHOLESTYRAMINE/ASPARTAME 4 GM PACKET PO SCH ×2 (10:12→21:45)
[2019-05-02] MEDS: HYDROcodone/APAP 5/325MG 1 TAB TABLET PO PRN (10:16)
[2019-05-02] MEDS: hydrOXYzine 25 MG TABLET PO PRN ×2 (10:16→21:44)
--- NOTE | 2019-05-02 10:35 | PDOC ---
PROGRESS NOTES Subjective Subjective MRCP shows stricture at pancreatic head. brushings suspicious for adenocarcinoma. bilirubin down to about 5. pancreatic enzymes better. will general surgery. Objective Objective Vital Signs Date Time Temp Pulse Resp B/P (MAP) Pulse Ox O2 Delivery O2 Flow Rate FiO2 05/02/19 10:16 92 Room Air 5.0 05/02/19 08:31 74 148/84 05/02/19 07:05 98.0 16 98.0 Intake and Output 05/02/19 06:59 Intake Total 150 ml Balance 150 ml Intake Oral 150 ml # Voids 3 Physical Exam Abdomen: Soft, Other (mild epigastric tenderness) Heart: Regular rate, Normal S1, Normal S2 Extremities: No edema General: Alert HEENT: Atraumatic, Other (jauncdice) Lungs: Clear to auscultation Neuro: Normal speech Psych/Mental Status: Mental status NL Skin: No rashes, Other (jaundice) Assessment Assessment Problemsobstructive jaundice . 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 off atorvastatin fibromyalgia post ERCP acute pancreatitis better hypertension Medical Problems: (1) Acute hepatitis Status: Acute (2) Epigastric pain Status: Acute (3) Generalized pruritus Status: Acute (4) Obstructive jaundice Status: Acute Plan Plan of Care consult dr. galarza advance to full liquids continue PPN analgesics prn Comment Review of Relevant I have reviewed the following items betty (where applicable) has been applied. Labs Laboratory Tests Test 05/01/19 04:30 05/02/19 03:30 White Blood Count 8.0 x10^3/uL (4.0-11.0) 6.9 x10^3/uL (4.0-11.0) Red Blood Count 3.97 x10^6/uL (3.50-5.40) 3.93 x10^6/uL (3.50-5.40) Hemoglobin 12.4 g/dL (12.0-15.5) 12.2 g/dL (12.0-15.5) Hematocrit 36.7 % (36.0-47.0) 36.0 % (36.0-47.0) Mean Corpuscular Volume 93 fL (79-100) 92 fL (79-100) Mean Corpuscular Hemoglobin 31 pg (25-35) 31 pg (25-35) Mean Corpuscular Hemoglobin Concent 34 g/dL (31-37) 34 g/dL (31-37) Red Cell Distribution Width 17.3 % (11.5-14.5) 17.5 % (11.5-14.5) Platelet Count 326 x10^3/uL (140-400) 337 x10^3/uL (140-400) Neutrophils (%) (Auto) 62 % (31-73) 64 % (31-73) Lymphocytes (%) (Auto) 27 % (24-48) 22 % (24-48) Monocytes (%) (Auto) 7 % (0-9) 9 % (0-9) Eosinophils (%) (Auto) 4 % (0-3) 4 % (0-3) Basophils (%) (Auto) 1 % (0-3) 1 % (0-3) Neutrophils # (Auto) 4.9 x10^3/uL (1.8-7.7) 4.4 x10^3/uL (1.8-7.7) Lymphocytes # (Auto) 2.2 x10^3/uL (1.0-4.8) 1.5 x10^3/uL (1.0-4.8) Monocytes # (Auto) 0.5 x10^3/uL (0.0-1.1) 0.6 x10^3/uL (0.0-1.1) Eosinophils # (Auto) 0.3 x10^3/uL (0.0-0.7) 0.3 x10^3/uL (0.0-0.7) Basophils # (Auto) 0.1 x10^3/uL (0.0-0.2) 0.1 x10^3/uL (0.0-0.2) Sodium Level 140 mmol/L (136-145) 138 mmol/L (136-145) Potassium Level 4.5 mmol/L (3.5-5.1) 3.9 mmol/L (3.5-5.1) Chloride Level 104 mmol/L (98-107) 103 mmol/L (98-107) Carbon Dioxide Level 25 mmol/L (21-32) 25 mmol/L (21-32) Anion Gap 11 (6-14) 10 (6-14) Blood Urea Nitrogen 18 mg/dL (7-20) 19 mg/dL (7-20) Creatinine 0.9 mg/dL (0.6-1.0) 0.9 mg/dL (0.6-1.0) Estimated GFR (Cockcroft-Gault) 60.1 60.1 Glucose Level 108 mg/dL (70-99) 127 mg/dL (70-99) Calcium Level 9.3 mg/dL (8.5-10.1) 9.2 mg/dL (8.5-10.1) Total Bilirubin 8.6 mg/dL (0.2-1.0) 5.4 mg/dL (0.2-1.0) Direct Bilirubin 6.9 mg/dL (0.0-0.2) Aspartate Amino Transf (AST/SGOT) 67 U/L (15-37) 57 U/L (15-37) Alanine Aminotransferase (ALT/SGPT) 167 U/L (14-59) 125 U/L (14-59) Alkaline Phosphatase 457 U/L (46-116) 370 U/L (46-116) Total Protein 6.7 g/dL (6.4-8.2) 7.3 g/dL (6.4-8.2) Albumin 2.8 g/dL (3.4-5.0) 2.7 g/dL (3.4-5.0) Amylase Level 139 U/L (25-115) 66 U/L (25-115) Lipase 787 U/L (73-393) 510 U/L (73-393) BUN/Creatinine Ratio 21 (6-20) Albumin/Globulin Ratio 0.6 (1.0-1.7) Laboratory Tests Test 05/02/19 03:30 White Blood Count 6.9 x10^3/uL (4.0-11.0) Red Blood Count 3.93 x10^6/uL (3.50-5.40) Hemoglobin 12.2 g/dL (12.0-15.5) Hematocrit 36.0 % (36.0-47.0) Mean Corpuscular Volume 92 fL (79-100) Mean Corpuscular Hemoglobin 31 pg (25-35) Mean Corpuscular Hemoglobin Concent 34 g/dL (31-37) Red Cell Distribution Width 17.5 % (11.5-14.5) Platelet Count 337 x10^3/uL (140-400) Neutrophils (%) (Auto) 64 % (31-73) Lymphocytes (%) (Auto) 22 % (24-48) Monocytes (%) (Auto) 9 % (0-9) Eosinophils (%) (Auto) 4 % (0-3) Basophils (%) (Auto) 1 % (0-3) Neutrophils # (Auto) 4.4 x10^3/uL (1.8-7.7) Lymphocytes # (Auto) 1.5 x10^3/uL (1.0-4.8) Monocytes # (Auto) 0.6 x10^3/uL (0.0-1.1) Eosinophils # (Auto) 0.3 x10^3/uL (0.0-0.7) Basophils # (Auto) 0.1 x10^3/uL (0.0-0.2) Sodium Level 138 mmol/L (136-145) Potassium Level 3.9 mmol/L (3.5-5.1) Chloride Level 103 mmol/L (98-107) Carbon Dioxide Level 25 mmol/L (21-32) Anion Gap 10 (6-14) Blood Urea Nitrogen 19 mg/dL (7-20) Creatinine 0.9 mg/dL (0.6-1.0) Estimated GFR (Cockcroft-Gault) 60.1 BUN/Creatinine Ratio 21 (6-20) Glucose Level 127 mg/dL (70-99) Calcium Level 9.2 mg/dL (8.5-10.1) Total Bilirubin 5.4 mg/dL (0.2-1.0) Aspartate Amino Transf (AST/SGOT) 57 U/L (15-37) Alanine Aminotransferase (ALT/SGPT) 125 U/L (14-59) Alkaline Phosphatase 370 U/L (46-116) Total Protein 7.3 g/dL (6.4-8.2) Albumin 2.7 g/dL (3.4-5.0) Albumin/Globulin Ratio 0.6 (1.0-1.7) Amylase Level 66 U/L (25-115) Lipase 510 U/L (73-393) Microbiology 04/26/19 Urine Culture - Final, Complete 04/26/19 Urine Culture Result 1 (QUEENIE) - Final, Complete Medications Current Medications Iohexol (Omnipaque 300 Mg/ml) 60 ml 1X ONCE IV Last administered on 04/26/19 12:06; Start 04/26/19 at 12:30; Stop 04/26/19 at 12:31; Status DC Info (CONTRAST GIVEN -- Rx MONITORING) 1 each PRN DAILY PRN MC SEE COMMENTS; Start 04/26/19 at 12:00; Stop 04/28/19 at 11:59; Status DC Ondansetron HCl (Zofran) 4 mg PRN Q6HRS PRN IV NAUSEA/VOMITING Last administered on 04/29/19at 01:04; Start 04/26/19 at 12:30; Stop 04/29/19 at 04:56; Status DC Cholestyramine Resin (Questran Light) 4 gm BID@1000,2200 PO Last administered on 05/02/19at 10:12; Start 04/26/19 at 22:00 Hydroxyzine HCl (Atarax) 25 mg PRN Q6HRS PRN PO ITCHING Last administered on 05/02/19 10:16; Start 04/26/19 at 12:30 Morphine Sulfate (Morphine Sulfate) 2 mg PRN Q6HRS PRN IV SEVERE PAIN 7-10; Start 04/26/19 at 12:30; Stop 04/26/19 at 12:42; Status DC Acetaminophen/ Hydrocodone Bitart (Lortab 5/325) 1 tab PRN Q6HRS PRN PO MILD PAIN / TEMP; Start 04/26/19 at 12:30; Stop 04/26/19 at 12:42; Status DC Gabapentin (Neurontin) 300 mg TID PO Last administered on 05/02/19 08:31; Start 04/26/19 at 14:00 Lorazepam (Ativan) 0.5 mg PRN BID PRN PO AGITATION; Start 04/26/19 at 12:30 Sertraline HCl (Zoloft) 50 mg DAILY PO Last administered on 05/02/19 08:31; Start 04/27/19 at 09:00 Tramadol HCl (Ultram) 50 mg TID PO Last administered on 04/29/19 09:09; Start 04/26/19 at 14:00; Stop 04/29/19 at 10:09; Status DC Acetaminophen (Tylenol) 325 mg PRN Q6HRS PRN PO MILD PAIN / TEMP; Start 04/26/19 at 12:30 Polyethylene Glycol (miraLAX PACKET) 17 gm DAILY PO Last administered on 05/02/19 08:31; Start 04/27/19 at 09:00 Magnesium Hydroxide (Milk Of Magnesia) 2,400 mg PRN DAILY PRN PO CONSTIPATION Last administered on 04/29/19at 02:34; Start 04/26/19 at 12:30 Acetaminophen/ Hydrocodone Bitart (Lortab 5/325) 1 tab PRN Q4HRS PRN PO MODERATE PAIN Last administered on 05/02/19 10:16; Start 04/26/19 at 12:45 Morphine Sulfate (Morphine Sulfate) 1 mg PRN Q4HRS PRN IV SEVERE PAIN 7-10 Last administered on 04/29/19 01:11; Start 04/26/19 at 12:45; Stop 04/29/19 at 04:56; Status DC Levofloxacin/ Dextrose 100 ml @ 100 mls/hr 1X ONCE IV Last administered on 04/28/19 08:31; Start 04/28/19 at 07:15; Stop 04/28/19 at 08:14; Status DC Ringer's Solution 1,000 ml @ 75 mls/hr 1X ONCE IV Last administered on 04/28/19at 14:43; Start 04/28/19 at 12:15; Stop 04/29/19 at 01:34; Status DC Iohexol (Omnipaque 300 Mg/ml) 100 ml STK-MED ONCE .ROUTE ; Start 04/28/19 at 13:24; Stop 04/28/19 at 13:25; Status DC Famotidine (Pepcid Vial) 20 mg STK-MED ONCE .ROUTE ; Start 04/28/19 at 14:12; Stop 04/28/19 at 14:13; Status DC Dexamethasone Sodium Phosphate (Decadron) 20 mg STK-MED ONCE .ROUTE ; Start 04/28/19 at 14:13; Stop 04/28/19 at 14:14; Status DC Lidocaine HCl (Lidocaine Pf 2% Vial) 5 ml STK-MED ONCE .ROUTE ; Start 04/28/19 at 15:00; Stop 04/28/19 at 15:01; Status DC Iohexol (Omnipaque 300 Mg/ml) 100 ml STK-MED ONCE IV Last administered on 04/28/19at 16:20; Start 04/28/19 at 16:20; Stop 04/28/19 at 16:48; Status DC Fentanyl Citrate (Fentanyl 2ml Vial) 25 mcg 1X ONCE IV Last administered on 04/28/19at 17:05; Start 04/28/19 at 17:00; Stop 04/28/19 at 17:01; Status DC Morphine Sulfate (Morphine Sulfate) 2 mg PRN Q4HRS PRN IV SEVERE PAIN 7-10; Start 04/29/19 at 05:00 Ondansetron HCl (Zofran) 8 mg PRN Q6HRS PRN IV NAUSEA/VOMITING, 1ST CHOICE Last administered on 05/02/19 06:33; Start 04/29/19 at 05:00 Prochlorperazine Maleate (Compazine) 10 mg PRN Q6HRS PRN PO NAUSEA/VOMITING; Start 04/29/19 at 05:00 Tramadol HCl (Ultram) 50 mg QID PO Last administered on 05/02/19at 08:31; Start 04/29/19 at 13:00 Potassium Chloride/Dextrose/ Sod Cl 1,000 ml @ 75 mls/hr [id number] IV Last administered on 04/30/19at 02:53; Start 04/29/19 at 10:15; Stop 04/30/19 at 10:45; Status DC Amitriptyline HCl (Elavil) 25 mg QHS PO Last administered on 05/01/19at 21:39; S tart 04/29/19 at 21:00 Phenylephrine HCl (PHENYLEPHRINE in 0.9% NACL PF) 1 mg STK-MED ONCE IV ; Start 04/28/19 at 14:00; Stop 04/29/19 at 13:10; Status DC Succinylcholine Chloride (Anectine) 200 mg STK-MED ONCE .ROUTE ; Start 04/28/19 at 14:00; Stop 04/29/19 at 13:10; Status DC Propofol (Diprivan) 200 mg STK-MED ONCE IV ; Start 04/28/19 at 14:00; Stop 04/29/19 at 13:10; Status DC Amino Acids/ Glycerin/ Electrolytes 1,000 ml @ 80 mls/hr [id number] IV Last administered on 05/02/19at 06:29; Start 04/30/19 at 10:45 Amlodipine Besylate (Norvasc) 5 mg DAILY PO Last administered on 05/02/19at 08:31; Start 05/01/19 at 13:00 Hydralazine HCl (Apresoline Inj) 10 mg PRN Q4HRS PRN IVP ELEVATED BP, SEE COMMENTS; Start 05/01/19 at 12:45 Active Scripts Active Zoloft (Sertraline Hcl) 50 Mg Tablet 50 Mg PO DAILY [Polyethylene Glycol 3350] 17 GM Packet 17 Gm PO DAILY [Oxycodone Hcl/Acetaminophen] 1 TAB Tablet 1 Tab PO PRN Q4HRS PRN Neurontin (Gabapentin) 300 Mg Capsule 300 Mg PO TID [Amoxicillin/Potassium Clav] 1 TAB Tablet 1 Tab PO BID [Amitriptyline Hcl] 50 MG Tablet 50 Mg PO QHS Lipitor (Atorvastatin Calcium) 10 Mg Tablet 10 Mg PO QHS Vitals/I & O Vital Sign - Last 24 Hours 05/01/19 05/01/19 05/01/19 05/01/19 11:00 14:39 14:39 15:00 Temp 98.2 98.7 98.2 98.7 Pulse 79 79 68 Resp 17 18 B/P (MAP) 162/107 (125) 162/107 164/87 (112) Pulse Ox 94 94 97 O2 Delivery Room Air Room Air Room Air O2 Flow Rate 5.0 05/01/19 05/01/19 05/01/19 05/01/19 15:32 15:40 16:59 17:25 Pulse Ox 97 97 97 97 O2 Delivery Room Air Room Air Room Air Room Air O2 Flow Rate 5.0 5.0 5.0 5.0 05/01/19 05/01/19 05/01/19 05/01/19 19:00 20:00 21:39 21:40 Temp 98.0 98.0 Pulse 79 Resp 16 B/P (MAP) 150/93 (112) Pulse Ox 94 O2 Delivery Room Air Room Air Room Air Room Air 05/01/19 05/01/19 05/02/19 05/02/19 22:43 23:00 03:56 07:05 Temp 98.7 97.8 98.0 98.7 97.8 98.0 Pulse 73 80 74 Resp 18 16 16 B/P (MAP) 155/77 (103) 143/81 (101) 148/84 (105) Pulse Ox 95 95 92 O2 Delivery Room Air Room Air Room Air Room Air 05/02/19 05/02/19 05/02/19 05/02/19 08:00 08:31 08:31 09:49 Pulse 74 B/P (MAP) 148/84 Pulse Ox 92 92 O2 Delivery Room Air Room Air Room Air O2 Flow Rate 5.0 5.0 05/02/19 10:16 Pulse Ox 92 O2 Delivery Room Air O2 Flow Rate 5.0 Intake and Output 05/01/19 05/01/19 05/02/19 14:59 22:59 06:59 Intake Total 0 ml 150 ml 0 ml Balance 0 ml 150 ml 0 ml SRINIVASA ABDULLAHI MD May 02, 2019 10:35
[2019-05-02 11:05] VITALS: BP 124/80
--- NOTE | 2019-05-02 12:54 | PDOC ---
Subjective: Subjective: Itching better w/ meds. Says Dr. Perez says she could have full liquids. Objective: Objective: D/w nurse - surgery consulted. Vital Signs: Vital Signs Date Time Temp Pulse Resp B/P (MAP) Pulse Ox O2 Delivery O2 Flow Rate FiO2 05/02/19 11:40 95 Room Air 5.0 05/02/19 11:05 98.4 78 16 124/80 (95) 98.4 Labs: Laboratory Tests Test 05/02/19 03:30 White Blood Count 6.9 x10^3/uL Red Blood Count 3.93 x10^6/uL Hemoglobin 12.2 g/dL Hematocrit 36.0 % Mean Corpuscular Volume 92 fL Mean Corpuscular Hemoglobin 31 pg Mean Corpuscular Hemoglobin Concent 34 g/dL Red Cell Distribution Width 17.5 % Platelet Count 337 x10^3/uL Neutrophils (%) (Auto) 64 % Lymphocytes (%) (Auto) 22 % Monocytes (%) (Auto) 9 % Eosinophils (%) (Auto) 4 % Basophils (%) (Auto) 1 % Neutrophils # (Auto) 4.4 x10^3/uL Lymphocytes # (Auto) 1.5 x10^3/uL Monocytes # (Auto) 0.6 x10^3/uL Eosinophils # (Auto) 0.3 x10^3/uL Basophils # (Auto) 0.1 x10^3/uL Sodium Level 138 mmol/L Potassium Level 3.9 mmol/L Chloride Level 103 mmol/L Carbon Dioxide Level 25 mmol/L Anion Gap 10 Blood Urea Nitrogen 19 mg/dL Creatinine 0.9 mg/dL Estimated GFR (Cockcroft-Gault) 60.1 BUN/Creatinine Ratio 21 Glucose Level 127 mg/dL Calcium Level 9.2 mg/dL Total Bilirubin 5.4 mg/dL Aspartate Amino Transf (AST/SGOT) 57 U/L Alanine Aminotransferase (ALT/SGPT) 125 U/L Alkaline Phosphatase 370 U/L Total Protein 7.3 g/dL Albumin 2.7 g/dL Albumin/Globulin Ratio 0.6 Amylase Level 66 U/L Lipase 510 U/L Source: [A] 01 CBD STRICTURE DIAGNOSIS: [A] 02 CBD STRICTURE SUSPICIOUS FOR MALIGNANCY. HIGHLY ATYPICAL CELLS IDENTIFIED SUSPICUIOUS FOR ADENOCARCINOMA. COMMENT: THE CASE IS ALSO EXAMINED BY DR. JIMENES, CYTOPATHOLOGIST, WHO CONCURS WITH THE DIAGNOSIS. Imaging: MRCP IMPRESSION: 1. Severe stricture along the common duct at the level of the pancreatic head. This appears to be secondary to nonmasslike scirrhous soft tissue along the harris perior aspect of the pancreatic concerning for pancreatic adenocarcinoma. Correlate with findings of ERCP. 2. No evidence of metastatic disease without contrast. PE: GEN: NAD LUNGS: CTAB HEART: RRR ABD: NABS, S/ND/NT NEURO/PSYCH: A & O �3 A/P: Obstructive jaundice s/p ERCP w/ stricture - brushings suspicious for adenocarcinoma Nausea, pruritus - better -- Plans as above. CORI PEDERSEN May 02, 2019 12:54
[2019-05-02 15:05] VITALS: BP 133/77
--- NOTE | 2019-05-02 15:08 | NUR ---
SW following pt. SW notified pt might possibly need transfer to . Discussed with RN, Gen Mann consulted. No transfer needed at this time.
[2019-05-02 19:53] VITALS: BP 145/68
[2019-05-02] MEDS: AMITRIPTYLINE HCL 25 MG TABLET. PO SCH (21:44)
[2019-05-02 23:51] VITALS: BP 131/85
[2019-05-03 03:55] VITALS: BP 118/76
[2019-05-03 04:56] LABS: ALBUMIN 2.7 g/dL (3.4-5.0); CALCIUM 9.2 mg/dL (8.5-10.1); DIRECT BILIRUBIN 3.4 mg/dL (0.0-0.2); GFR 53.2; POTASSIUM 4.2 mmol/L (3.5-5.1); TOTAL BILIRUBIN 4.2 mg/dL (0.2-1.0); TOTAL PROTEIN 7.2 g/dL (6.4-8.2)
[2019-05-03] MEDS: AMINO AC 3%/ELECTROLYTE/GLYCER 1,000 ML IV SCH ×2 (06:22→17:59)
[2019-05-03 07:36] VITALS: BP 135/74
[2019-05-03] MEDS: traMADol 50 MG TABLET PO SCH ×4 (07:58→20:49)
[2019-05-03] MEDS: hydrOXYzine 25 MG TABLET PO PRN ×2 (07:58→20:48)
[2019-05-03] MEDS: GABAPENTIN 300 MG CAPSULE. PO SCH ×3 (07:58→20:49)
[2019-05-03] MEDS: POLYETHYLENE GLYCOL 3350 17 GM PACKET. PO SCH (07:59)
[2019-05-03] MEDS: SERTRALINE 50 MG TABLET. PO SCH (07:59)
[2019-05-03] MEDS: amLODIPine BESYLATE 5 MG TABLET PO SCH (07:59)
--- NOTE | 2019-05-03 10:29 | PDOC ---
PROGRESS NOTES Subjective Subjective has less pruritus some epigastric pain intermittently. tolerated full liquids but did not like all of the food choices. total bilirubin down to 4.2. lipase still elevated Objective Objective Vital Signs Date Time Temp Pulse Resp B/P (MAP) Pulse Ox O2 Delivery O2 Flow Rate FiO2 05/03/19 09:17 18 Room Air 05/03/19 08:00 69 135/74 05/03/19 07:36 97.6 93 97.6 05/02/19 18:36 5.0 Intake and Output 05/03/19 07:00 Intake Total 880 ml Balance 880 ml Intake Oral 880 ml # Voids 1 Physical Exam Abdomen: Soft, Other (epigastric tenderness) Heart: Regular rate, Normal S1, Normal S2 Extremities: No edema General: Alert HEENT: Atraumatic Lungs: Clear to auscultation Neuro: Normal speech Psych/Mental Status: Mental status NL Skin: No rashes Assessment Assessment Problemsobstructive jaundice . 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 off atorvastatin fibromyalgia post ERCP acute pancreatitis better hypertension Medical Problems: (1) Acute hepatitis Status: Acute (2) Epigastric pain Status: Acute (3) Generalized pruritus Status: Acute (4) Obstructive jaundice Status: Acute Plan Plan of Care await general surgery consult discussed with family and nurse continue PPN continue full liquid diet continue cholestyramine and prn hydroxyzine continue prn iv morphine or norco consider transfer to [facility] for cbd metal stent vs surgery Comment Review of Relevant I have reviewed the following items betty (where applicable) has been applied. Labs Laboratory Tests Test 05/02/19 03:30 05/03/19 04:00 White Blood Count 6.9 x10^3/uL (4.0-11.0) Red Blood Count 3.93 x10^6/uL (3.50-5.40) Hemoglobin 12.2 g/dL (12.0-15.5) Hematocrit 36.0 % (36.0-47.0) Mean Corpuscular Volume 92 fL (79-100) Mean Corpuscular Hemoglobin 31 pg (25-35) Mean Corpuscular Hemoglobin Concent 34 g/dL (31-37) Red Cell Distribution Width 17.5 % (11.5-14.5) Platelet Count 337 x10^3/uL (140-400) Neutrophils (%) (Auto) 64 % (31-73) Lymphocytes (%) (Auto) 22 % (24-48) Monocytes (%) (Auto) 9 % (0-9) Eosinophils (%) (Auto) 4 % (0-3) Basophils (%) (Auto) 1 % (0-3) Neutrophils # (Auto) 4.4 x10^3/uL (1.8-7.7) Lymphocytes # (Auto) 1.5 x10^3/uL (1.0-4.8) Monocytes # (Auto) 0.6 x10^3/uL (0.0-1.1) Eosinophils # (Auto) 0.3 x10^3/uL (0.0-0.7) Basophils # (Auto) 0.1 x10^3/uL (0.0-0.2) Sodium Level 138 mmol/L (136-145) 139 mmol/L (136-145) Potassium Level 3.9 mmol/L (3.5-5.1) 4.2 mmol/L (3.5-5.1) Chloride Level 103 mmol/L (98-107) 104 mmol/L (98-107) Carbon Dioxide Level 25 mmol/L (21-32) 25 mmol/L (21-32) Anion Gap 10 (6-14) 10 (6-14) Blood Urea Nitrogen 19 mg/dL (7-20) 20 mg/dL (7-20) Creatinine 0.9 mg/dL (0.6-1.0) 1.0 mg/dL (0.6-1.0) Estimated GFR (Cockcroft-Gault) 60.1 53.2 BUN/Creatinine Ratio 21 (6-20) Glucose Level 127 mg/dL (70-99) 129 mg/dL (70-99) Calcium Level 9.2 mg/dL (8.5-10.1) 9.2 mg/dL (8.5-10.1) Total Bilirubin 5.4 mg/dL (0.2-1.0) 4.2 mg/dL (0.2-1.0) Aspartate Amino Transf (AST/SGOT) 57 U/L (15-37) 78 U/L (15-37) Alanine Aminotransferase (ALT/SGPT) 125 U/L (14-59) 119 U/L (14-59) Alkaline Phosphatase 370 U/L (46-116) 341 U/L (46-116) Total Protein 7.3 g/dL (6.4-8.2) 7.2 g/dL (6.4-8.2) Albumin 2.7 g/dL (3.4-5.0) 2.7 g/dL (3.4-5.0) Albumin/Globulin Ratio 0.6 (1.0-1.7) Amylase Level 66 U/L (25-115) 66 U/L (25-115) Lipase 510 U/L (73-393) 495 U/L (73-393) Direct Bilirubin 3.4 mg/dL (0.0-0.2) Laboratory Tests Test 05/03/19 04:00 Sodium Level 139 mmol/L (136-145) Potassium Level 4.2 mmol/L (3.5-5.1) Chloride Level 104 mmol/L (98-107) Carbon Dioxide Level 25 mmol/L (21-32) Anion Gap 10 (6-14) Blood Urea Nitrogen 20 mg/dL (7-20) Creatinine 1.0 mg/dL (0.6-1.0) Estimated GFR (Cockcroft-Gault) 53.2 Glucose Level 129 mg/dL (70-99) Calcium Level 9.2 mg/dL (8.5-10.1) Total Bilirubin 4.2 mg/dL (0.2-1.0) Direct Bilirubin 3.4 mg/dL (0.0-0.2) Aspartate Amino Transf (AST/SGOT) 78 U/L (15-37) Alanine Aminotransferase (ALT/SGPT) 119 U/L (14-59) Alkaline Phosphatase 341 U/L (46-116) Total Protein 7.2 g/dL (6.4-8.2) Albumin 2.7 g/dL (3.4-5.0) Amylase Level 66 U/L (25-115) Lipase 495 U/L (73-393) Microbiology 04/26/19 Urine Culture - Final, Complete 04/26/19 Urine Culture Result 1 (QUEENIE) - Final, Complete Medications Current Medications Iohexol (Omnipaque 300 Mg/ml) 60 ml 1X ONCE IV Last administered on 04/26/19at 12:06; Start 04/26/19 at 12:30; Stop 04/26/19 at 12:31; Status DC Info (CONTRAST GIVEN -- Rx MONITORING) 1 each PRN DAILY PRN MC SEE COMMENTS; Start 04/26/19 at 12:00; Stop 04/28/19 at 11:59; Status DC Ondansetron HCl (Zofran) 4 mg PRN Q6HRS PRN IV NAUSEA/VOMITING Last administered on 04/29/19at 01:04; Start 04/26/19 at 12:30; Stop 04/29/19 at 04:56; Status DC Cholestyramine Resin (Questran Light) 4 gm BID@1000,2200 PO Last administered on 05/02/19at 10:12; Start 04/26/19 at 22:00 Hydroxyzine HCl (Atarax) 25 mg PRN Q6HRS PRN PO ITCHING Last administered on 05/03/19at 08:00; Start 04/26/19 at 12:30 Morphine Sulfate (Morphine Sulfate) 2 mg PRN Q6HRS PRN IV SEVERE PAIN 7-10; Start 04/26/19 at 12:30; Stop 04/26/19 at 12:42; Status DC Acetaminophen/ Hydrocodone Bitart (Lortab 5/325) 1 tab PRN Q6HRS PRN PO MILD PAIN / TEMP; Start 04/26/19 at 12:30; Stop 04/26/19 at 12:42; Status DC Gabapentin (Neurontin) 300 mg TID PO Last administered on 05/03/19at 08:00; Start 04/26/19 at 14:00 Lorazepam (Ativan) 0.5 mg PRN BID PRN PO AGITATION; Start 04/26/19 at 12:30 Sertraline HCl (Zoloft) 50 mg DAILY PO Last administered on 05/03/19 08:00; Start 04/27/19 at 09:00 Tramadol HCl (Ultram) 50 mg TID PO Last administered on 04/29/19at 09:09; Start 04/26/19 at 14:00; Stop 04/29/19 at 10:09; Status DC Acetaminophen (Tylenol) 325 mg PRN Q6HRS PRN PO MILD PAIN / TEMP; Start 04/26/19 at 12:30 Polyethylene Glycol (miraLAX PACKET) 17 gm DAILY PO Last administered on 05/02/19 08:31; Start 04/27/19 at 09:00 Magnesium Hydroxide (Milk Of Magnesia) 2,400 mg PRN DAILY PRN PO CONSTIPATION Last administered on 04/29/19 02:34; Start 04/26/19 at 12:30 Acetaminophen/ Hydrocodone Bitart (Lortab 5/325) 1 tab PRN Q4HRS PRN PO MODERATE PAIN Last administered on 05/02/19 10:16; Start 04/26/19 at 12:45 Morphine Sulfate (Morphine Sulfate) 1 mg PRN Q4HRS PRN IV SEVERE PAIN 7-10 Last administered on 04/29/19 01:11; Start 04/26/19 at 12:45; Stop 04/29/19 at 04:56; Status DC Levofloxacin/ Dextrose 100 ml @ 100 mls/hr 1X ONCE IV Last administered on 04/28/19 08:31; Start 04/28/19 at 07:15; Stop 04/28/19 at 08:14; Status DC Ringer's Solution 1,000 ml @ 75 mls/hr 1X ONCE IV Last administered on 04/28/19at 14:43; Start 04/28/19 at 12:15; Stop 04/29/19 at 01:34; Status DC Iohexol (Omnipaque 300 Mg/ml) 100 ml STK-MED ONCE .ROUTE ; Start 04/28/19 at 13:24; Stop 04/28/19 at 13:25; Status DC Famotidine (Pepcid Vial) 20 mg STK-MED ONCE .ROUTE ; Start 04/28/19 at 14:12; Stop 04/28/19 at 14:13; Status DC Dexamethasone Sodium Phosphate (Decadron) 20 mg STK-MED ONCE .ROUTE ; Start 04/28/19 at 14:13; Stop 04/28/19 at 14:14; Status DC Lidocaine HCl (Lidocaine Pf 2% Vial) 5 ml STK-MED ONCE .ROUTE ; Start 04/28/19 at 15:00; Stop 04/28/19 at 15:01; Status DC Iohexol (Omnipaque 300 Mg/ml) 100 ml STK-MED ONCE IV Last administered on 04/28/19at 16:20; Start 04/28/19 at 16:20; Stop 04/28/19 at 16:48; Status DC Fentanyl Citrate (Fentanyl 2ml Vial) 25 mcg 1X ONCE IV Last administered on 04/28/19at 17:05; Start 04/28/19 at 17:00; Stop 04/28/19 at 17:01; Status DC Morphine Sulfate (Morphine Sulfate) 2 mg PRN Q4HRS PRN IV SEVERE PAIN 7-10; Start 04/29/19 at 05:00 Ondansetron HCl (Zofran) 8 mg PRN Q6HRS PRN IV NAUSEA/VOMITING, 1ST CHOICE Last administered on 05/02/19at 06:33; Start 04/29/19 at 05:00 Prochlorperazine Maleate (Compazine) 10 mg PRN Q6HRS PRN PO NAUSEA/VOMITING; Start 04/29/19 at 05:00 Tramadol HCl (Ultram) 50 mg QID PO Last administered on 05/03/19at 08:00; Start 04/29/19 at 13:00 Potassium Chloride/Dextrose/ Sod Cl 1,000 ml @ 75 mls/hr [id number] IV Last administered on 04/30/19at 02:53; Start 04/29/19 at 10:15; Stop 04/30/19 at 10:45; Status DC Amitriptyline HCl (Elavil) 25 mg QHS PO Last administered on 05/02/19at 21:46; Start 04/29/19 at 21:00 Phenylephrine HCl (PHENYLEPHRINE in 0.9% NACL PF) 1 mg STK-MED ONCE IV ; Start 04/28/19 at 14:00; Stop 04/29/19 at 13:10; Status DC Succinylcholine Chloride (Anectine) 200 mg STK-MED ONCE .ROUTE ; Start 04/28/19 at 14:00; Stop 04/29/19 at 13:10; Status DC Propofol (Diprivan) 200 mg STK-MED ONCE IV ; Start 04/28/19 at 14:00; Stop 04/29/19 at 13:10; Status DC Amino Acids/ Glycerin/ Electrolytes 1,000 ml @ 80 mls/hr [id number] IV Last administered on 05/03/19at 06:22; Start 04/30/19 at 10:45 Amlodipine Besylate (Norvasc) 5 mg DAILY PO Last administered on 05/03/19at 08:00; Start 05/01/19 at 13:00 Hydralazine HCl (Apresoline Inj) 10 mg PRN Q4HRS PRN IVP ELEVATED BP, SEE COMMENTS; Start 05/01/19 at 12:45 Active Scripts Active Zoloft (Sertraline Hcl) 50 Mg Tablet 50 Mg PO DAILY [Polyethylene Glycol 3350] 17 GM Packet 17 Gm PO DAILY [Oxycodone Hcl/Acetaminophen] 1 TAB Tablet 1 Tab PO PRN Q4HRS PRN Neurontin (Gabapentin) 300 Mg Capsule 300 Mg PO TID [Amoxicillin/Potassium Clav] 1 TAB Tablet 1 Tab PO BID [Amitriptyline Hcl] 50 MG Tablet 50 Mg PO QHS Lipitor (Atorvastatin Calcium) 10 Mg Tablet 10 Mg PO QHS Vitals/I & O Vital Sign - Last 24 Hours 05/02/19 05/02/19 05/02/19 05/02/19 11:05 11:40 13:31 15:05 Temp 98.4 98.2 98.4 98.2 Pulse 78 81 Resp 16 16 B/P (MAP) 124/80 (95) 133/77 (95) Pulse Ox 95 95 95 92 O2 Delivery Room Air Room Air Room Air Room Air O2 Flow Rate 5.0 5.0 05/02/19 05/02/19 05/02/19 05/02/19 15:22 17:06 18:36 19:53 Temp 98.4 98.4 Pulse 78 Resp 20 B/P (MAP) 145/68 (93) Pulse Ox 95 95 95 95 O2 Delivery Room Air Room Air Room Air Room Air O2 Flow Rate 5.0 5.0 5.0 05/02/19 05/02/19 05/02/19 05/02/19 20:21 21:46 23:34 23:51 Temp 98.7 98.7 Pulse 78 Resp 18 B/P (MAP) 131/85 (100) Pulse Ox 93 O2 Delivery Room Air Room Air Room Air Room Air 05/03/19 05/03/19 05/03/19 05/03/19 03:55 07:36 08:00 08:00 Temp 98.1 97.6 98.1 97.6 Pulse 75 69 69 Resp 20 18 18 B/P (MAP) 118/76 (90) 135/74 (94) 135/74 Pulse Ox 96 93 O2 Delivery Room Air Room Air Room Air 05/03/19 09:17 Resp 18 O2 Delivery Room Air Intake and Output 05/02/19 05/02/19 05/03/19 15:00 23:00 07:00 Intake Total 240 ml 540 ml 100 ml Balance 240 ml 540 ml 100 ml SRINIVASA ABDULLAHI MD May 03, 2019 10:29
[2019-05-03] MEDS: CHOLESTYRAMINE/ASPARTAME 4 GM PACKET PO SCH ×2 (10:38→20:49)
[2019-05-03 11:40] VITALS: BP 121/84
--- NOTE | 2019-05-03 11:40 | PDOC2 ---
CONSULT Date of Consult Date of Consult DATE: 05/03/19 TIME: 11:28 Reason for Consult Reason for Consult: common bile duct stricture Referring Physician Referring Physician: Dr Perez Identification/Chief Complaint Chief Complaint pruritus, nausea Source Source: Chart review, Patient History of Present Illness Reason for Visit: Mrs Cook is an 83 yo lady who for the last two months has had some morning nausea. Over the last two weeks she noticed Coke-colored urine and mary-colored stools along with some pruritus. W/U to this point suggest malignant tumor creating an obstruction of the bile duct. Past Medical History Cardiovascular: Hyperlipidemia Pulmonary: No pertinent hx CENTRAL NERVOUS SYSTEM: Other GI: Constipation Heme/Onc: No pertinent hx Hepatobiliary: No pertinent hx Psych: Anxiety Musculoskeletal: Osteoarthritis Rheumatologic: Fibromyalgia Infectious disease: No pertinent hx Renal/: Chronic renal insuff, Other Endocrine: No pertinent hx Past Surgical History Past Surgical History: Cholecystectomy, Other Social History No ALCOHOL: occassional Drugs: None Lives: with Family Domestic Violence: Neg Current Problem List Problem List Problems Medical Problems: (1) Acute hepatitis Status: Acute (2) Epigastric pain Status: Acute (3) Generalized pruritus Status: Acute (4) Obstructive jaundice Status: Acute Current Medications Current Medications Current Medications Iohexol (Omnipaque 300 Mg/ml) 60 ml 1X ONCE IV Last administered on 04/26/19at 12:06; Start 04/26/19 at 12:30; Stop 04/26/19 at 12:31; Status DC Info (CONTRAST GIVEN -- Rx MONITORING) 1 each PRN DAILY PRN MC SEE COMMENTS; Start 04/26/19 at 12:00; Stop 04/28/19 at 11:59; Status DC Ondansetron HCl (Zofran) 4 mg PRN Q6HRS PRN IV NAUSEA/VOMITING Last administered on 04/29/19at 01:04; Start 04/26/19 at 12:30; Stop 04/29/19 at 04:56; Status DC Cholestyramine Resin (Questran Light) 4 gm BID@1000,2200 PO Last administered on 05/03/19at 10:39; Start 04/26/19 at 22:00 Hydroxyzine HCl (Atarax) 25 mg PRN Q6HRS PRN PO ITCHING Last administered on 05/03/19at 08:00; Start 04/26/19 at 12:30 Morphine Sulfate (Morphine Sulfate) 2 mg PRN Q6HRS PRN IV SEVERE PAIN 7-10; Start 04/26/19 at 12:30; Stop 04/26/19 at 12:42; Status DC Acetaminophen/ Hydrocodone Bitart (Lortab 5/325) 1 tab PRN Q6HRS PRN PO MILD PAIN / TEMP; Start 04/26/19 at 12:30; Stop 04/26/19 at 12:42; Status DC Gabapentin (Neurontin) 300 mg TID PO Last administered on 05/03/19 08:00; Start 04/26/19 at 14:00 Lorazepam (Ativan) 0.5 mg PRN BID PRN PO AGITATION; Start 04/26/19 at 12:30 Sertraline HCl (Zoloft) 50 mg DAILY PO Last administered on 05/03/19 08:00; Start 04/27/19 at 09:00 Tramadol HCl (Ultram) 50 mg TID PO Last administered on 04/29/19 09:09; Start 04/26/19 at 14:00; Stop 04/29/19 at 10:09; Status DC Acetaminophen (Tylenol) 325 mg PRN Q6HRS PRN PO MILD PAIN / TEMP; Start 04/26/19 at 12:30 Polyethylene Glycol (miraLAX PACKET) 17 gm DAILY PO Last administered on 05/02/19 08:31; Start 04/27/19 at 09:00 Magnesium Hydroxide (Milk Of Magnesia) 2,400 mg PRN DAILY PRN PO CONSTIPATION Last administered on 04/29/19 02:34; Start 04/26/19 at 12:30 Acetaminophen/ Hydrocodone Bitart (Lortab 5/325) 1 tab PRN Q4HRS PRN PO MODERATE PAIN Last administered on 05/02/19 10:16; Start 04/26/19 at 12:45 Morphine Sulfate (Morphine Sulfate) 1 mg PRN Q4HRS PRN IV SEVERE PAIN 7-10 Last administered on 04/29/19 01:11; Start 04/26/19 at 12:45; Stop 04/29/19 at 04:56; Status DC Levofloxacin/ Dextrose 100 ml @ 100 mls/hr 1X ONCE IV Last administered on 04/28/19 08:31; Start 04/28/19 at 07:15; Stop 04/28/19 at 08:14; Status DC Ringer's Solution 1,000 ml @ 75 mls/hr 1X ONCE IV Last administered on 04/28/19at 14:43; Start 04/28/19 at 12:15; Stop 04/29/19 at 01:34; Status DC Iohexol (Omnipaque 300 Mg/ml) 100 ml STK-MED ONCE .ROUTE ; Start 04/28/19 at 13:24; Stop 04/28/19 at 13:25; Status DC Famotidine (Pepcid Vial) 20 mg STK-MED ONCE .ROUTE ; Start 04/28/19 at 14:12; Stop 04/28/19 at 14:13; Status DC Dexamethasone Sodium Phosphate (Decadron) 20 mg STK-MED ONCE .ROUTE ; Start 04/28/19 at 14:13; Stop 04/28/19 at 14:14; Status DC Lidocaine HCl (Lidocaine Pf 2% Vial) 5 ml STK-MED ONCE .ROUTE ; Start 04/28/19 at 15:00; Stop 04/28/19 at 15:01; Status DC Iohexol (Omnipaque 300 Mg/ml) 100 ml STK-MED ONCE IV Last administered on 04/28/19at 16:20; Start 04/28/19 at 16:20; Stop 04/28/19 at 16:48; Status DC Fentanyl Citrate (Fentanyl 2ml Vial) 25 mcg 1X ONCE IV Last administered on 04/28/19at 17:05; Start 04/28/19 at 17:00; Stop 04/28/19 at 17:01; Status DC Morphine Sulfate (Morphine Sulfate) 2 mg PRN Q4HRS PRN IV SEVERE PAIN 7-10; Start 04/29/19 at 05:00 Ondansetron HCl (Zofran) 8 mg PRN Q6HRS PRN IV NAUSEA/VOMITING, 1ST CHOICE Last administered on 05/02/19at 06:33; Start 04/29/19 at 05:00 Prochlorperazine Maleate (Compazine) 10 mg PRN Q6HRS PRN PO NAUSEA/VOMITING; Start 04/29/19 at 05:00 Tramadol HCl (Ultram) 50 mg QID PO Last administered on 05/03/19at 08:00; Start 04/29/19 at 13:00 Potassium Chloride/Dextrose/ Sod Cl 1,000 ml @ 75 mls/hr [id number] IV Last administered on 04/30/19at 02:53; Start 04/29/19 at 10:15; Stop 04/30/19 at 10:45; Status DC Amitriptyline HCl (Elavil) 25 mg QHS PO Last administered on 05/02/19at 21:46; Start 04/29/19 at 21:00 Phenylephrine HCl (PHENYLEPHRINE in 0.9% NACL PF) 1 mg STK-MED ONCE IV ; Start 04/28/19 at 14:00; Stop 04/29/19 at 13:10; Status DC Succinylcholine Chloride (Anectine) 200 mg STK-MED ONCE .ROUTE ; Start 04/28/19 at 14:00; Stop 04/29/19 at 13:10; Status DC Propofol (Diprivan) 200 mg STK-MED ONCE IV ; Start 04/28/19 at 14:00; Stop 04/29/19 at 13:10; Status DC Amino Acids/ Glycerin/ Electrolytes 1,000 ml @ 80 mls/hr [id number] IV Last administered on 05/03/19at 06:22; Start 04/30/19 at 10:45 Amlodipine Besylate (Norvasc) 5 mg DAILY PO Last administered on 05/03/19at 08:00; Start 05/01/19 at 13:00 Hydralazine HCl (Apresoline Inj) 10 mg PRN Q4HRS PRN IVP ELEVATED BP, SEE COMMENTS; Start 05/01/19 at 12:45 Active Scripts Active Zoloft (Sertraline Hcl) 50 Mg Tablet 50 Mg PO DAILY [Polyethylene Glycol 3350] 17 GM Packet 17 Gm PO DAILY [Oxycodone Hcl/Acetaminophen] 1 TAB Tablet 1 Tab PO PRN Q4HRS PRN Neurontin (Gabapentin) 300 Mg Capsule 300 Mg PO TID [Amoxicillin/Potassium Clav] 1 TAB Tablet 1 Tab PO BID [Amitriptyline Hcl] 50 MG Tablet 50 Mg PO QHS Lipitor (Atorvastatin Calcium) 10 Mg Tablet 10 Mg PO QHS Allergies Allergies: Coded Allergies: Penicillins (Verified Allergy, Intermediate, 04/28/19) rash Sulfa (Sulfonamide Antibiotics) (Verified Allergy, Intermediate, Hives., 04/28/19) lisinopril (Verified Allergy, Intermediate, 04/28/19) ROS Eyes: Yes Other (icterus) Gastrointestinal: Yes Nausea, Yes Abdominal Pain Skin: Yes Pruritus Physical Exam General: Alert, Oriented X3, No acute distress HEENT: Atraumatic, Other (minimal scleral icterus) Lungs: Normal air movement Heart: Regular rate Abdomen: Soft Skin: No rashes Neuro: Normal speech Vitals VITALS Vital Signs Date Time Temp Pulse Resp B/P (MAP) Pulse Ox O2 Delivery O2 Flow Rate FiO2 05/03/19 09:17 18 Room Air 05/03/19 08:00 69 135/74 05/03/19 08:00 5.0 05/03/19 07:36 97.6 93 97.6 Labs Labs Laboratory Tests Test 05/02/19 03:30 05/03/19 04:00 White Blood Count 6.9 x10^3/uL (4.0-11.0) Red Blood Count 3.93 x10^6/uL (3.50-5.40) Hemoglobin 12.2 g/dL (12.0-15.5) Hematocrit 36.0 % (36.0-47.0) Mean Corpuscular Volume 92 fL (79-100) Mean Corpuscular Hemoglobin 31 pg (25-35) Mean Corpuscular Hemoglobin Concent 34 g/dL (31-37) Red Cell Distribution Width 17.5 % (11.5-14.5) Platelet Count 337 x10^3/uL (140-400) Neutrophils (%) (Auto) 64 % (31-73) Lymphocytes (%) (Auto) 22 % (24-48) Monocytes (%) (Auto) 9 % (0-9) Eosinophils (%) (Auto) 4 % (0-3) Basophils (%) (Auto) 1 % (0-3) Neutrophils # (Auto) 4.4 x10^3/uL (1.8-7.7) Lymphocytes # (Auto) 1.5 x10^3/uL (1.0-4.8) Monocytes # (Auto) 0.6 x10^3/uL (0.0-1.1) Eosinophils # (Auto) 0.3 x10^3/uL (0.0-0.7) Basophils # (Auto) 0.1 x10^3/uL (0.0-0.2) Sodium Level 138 mmol/L (136-145) 139 mmol/L (136-145) Potassium Level 3.9 mmol/L (3.5-5.1) 4.2 mmol/L (3.5-5.1) Chloride Level 103 mmol/L (98-107) 104 mmol/L (98-107) Carbon Dioxide Level 25 mmol/L (21-32) 25 mmol/L (21-32) Anion Gap 10 (6-14) 10 (6-14) Blood Urea Nitrogen 19 mg/dL (7-20) 20 mg/dL (7-20) Creatinine 0.9 mg/dL (0.6-1.0) 1.0 mg/dL (0.6-1.0) Estimated GFR (Cockcroft-Gault) 60.1 53.2 BUN/Creatinine Ratio 21 (6-20) Glucose Level 127 mg/dL (70-99) 129 mg/dL (70-99) Calcium Level 9.2 mg/dL (8.5-10.1) 9.2 mg/dL (8.5-10.1) Total Bilirubin 5.4 mg/dL (0.2-1.0) 4.2 mg/dL (0.2-1.0) Aspartate Amino Transf (AST/SGOT) 57 U/L (15-37) 78 U/L (15-37) Alanine Aminotransferase (ALT/SGPT) 125 U/L (14-59) 119 U/L (14-59) Alkaline Phosphatase 370 U/L (46-116) 341 U/L (46-116) Total Protein 7.3 g/dL (6.4-8.2) 7.2 g/dL (6.4-8.2) Albumin 2.7 g/dL (3.4-5.0) 2.7 g/dL (3.4-5.0) Albumin/Globulin Ratio 0.6 (1.0-1.7) Amylase Level 66 U/L (25-115) 66 U/L (25-115) Lipase 510 U/L (73-393) 495 U/L (73-393) Direct Bilirubin 3.4 mg/dL (0.0-0.2) Laboratory Tests Test 05/03/19 04:00 Sodium Level 139 mmol/L (136-145) Potassium Level 4.2 mmol/L (3.5-5.1) Chloride Level 104 mmol/L (98-107) Carbon Dioxide Level 25 mmol/L (21-32) Anion Gap 10 (6-14) Blood Urea Nitrogen 20 mg/dL (7-20) Creatinine 1.0 mg/dL (0.6-1.0) Estimated GFR (Cockcroft-Gault) 53.2 Glucose Level 129 mg/dL (70-99) Calcium Level 9.2 mg/dL (8.5-10.1) Total Bilirubin 4.2 mg/dL (0.2-1.0) Direct Bilirubin 3.4 mg/dL (0.0-0.2) Aspartate Amino Transf (AST/SGOT) 78 U/L (15-37) Alanine Aminotransferase (ALT/SGPT) 119 U/L (14-59) Alkaline Phosphatase 341 U/L (46-116) Total Protein 7.2 g/dL (6.4-8.2) Albumin 2.7 g/dL (3.4-5.0) Amylase Level 66 U/L (25-115) Lipase 495 U/L (73-393) Images Images CT, ERCP and MRI films reviewed Assessment/Plan Assessment/Plan discussed findings with Mrs Cook, her and one of her [id number] Presentation suggests malignant process, 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 Scans do not suggest evidence of metastatic changes. Surgical options include resection versus biliary bypass. Stenting mentioned to patient by GI and Dr Perez. Will as Dr Branch for input when he returns Sunday. Explained these options and answered questions for Mrs Cook and her family. Will follow Thanks for asking us to see this nice lady and participated in her care FRANCK ROLON MD May 03, 2019 11:39
--- NOTE | 2019-05-03 12:55 | PDOC ---
G I PROGRESS NOTE Subjective Few complaints. Tolerating diet though dislikes choices. Objective Others' notes reviewed. Still confusion as to location, origin of tumor. Physical Exam Lungs clear. RRR Abdomen soft, not tender nor distended. Review of Relevant I have reviewed the following items betty (where applicable) has been applied. Labs Laboratory Tests Test 05/02/19 03:30 05/03/19 04:00 White Blood Count 6.9 x10^3/uL (4.0-11.0) Red Blood Count 3.93 x10^6/uL (3.50-5.40) Hemoglobin 12.2 g/dL (12.0-15.5) Hematocrit 36.0 % (36.0-47.0) Mean Corpuscular Volume 92 fL (79-100) Mean Corpuscular Hemoglobin 31 pg (25-35) Mean Corpuscular Hemoglobin Concent 34 g/dL (31-37) Red Cell Distribution Width 17.5 % (11.5-14.5) Platelet Count 337 x10^3/uL (140-400) Neutrophils (%) (Auto) 64 % (31-73) Lymphocytes (%) (Auto) 22 % (24-48) Monocytes (%) (Auto) 9 % (0-9) Eosinophils (%) (Auto) 4 % (0-3) Basophils (%) (Auto) 1 % (0-3) Neutrophils # (Auto) 4.4 x10^3/uL (1.8-7.7) Lymphocytes # (Auto) 1.5 x10^3/uL (1.0-4.8) Monocytes # (Auto) 0.6 x10^3/uL (0.0-1.1) Eosinophils # (Auto) 0.3 x10^3/uL (0.0-0.7) Basophils # (Auto) 0.1 x10^3/uL (0.0-0.2) Sodium Level 138 mmol/L (136-145) 139 mmol/L (136-145) Potassium Level 3.9 mmol/L (3.5-5.1) 4.2 mmol/L (3.5-5.1) Chloride Level 103 mmol/L (98-107) 104 mmol/L (98-107) Carbon Dioxide Level 25 mmol/L (21-32) 25 mmol/L (21-32) Anion Gap 10 (6-14) 10 (6-14) Blood Urea Nitrogen 19 mg/dL (7-20) 20 mg/dL (7-20) Creatinine 0.9 mg/dL (0.6-1.0) 1.0 mg/dL (0.6-1.0) Estimated GFR (Cockcroft-Gault) 60.1 53.2 BUN/Creatinine Ratio 21 (6-20) Glucose Level 127 mg/dL (70-99) 129 mg/dL (70-99) Calcium Level 9.2 mg/dL (8.5-10.1) 9.2 mg/dL (8.5-10.1) Total Bilirubin 5.4 mg/dL (0.2-1.0) 4.2 mg/dL (0.2-1.0) Aspartate Amino Transf (AST/SGOT) 57 U/L (15-37) 78 U/L (15-37) Alanine Aminotransferase (ALT/SGPT) 125 U/L (14-59) 119 U/L (14-59) Alkaline Phosphatase 370 U/L (46-116) 341 U/L (46-116) Total Protein 7.3 g/dL (6.4-8.2) 7.2 g/dL (6.4-8.2) Albumin 2.7 g/dL (3.4-5.0) 2.7 g/dL (3.4-5.0) Albumin/Globulin Ratio 0.6 (1.0-1.7) Amylase Level 66 U/L (25-115) 66 U/L (25-115) Lipase 510 U/L (73-393) 495 U/L (73-393) Direct Bilirubin 3.4 mg/dL (0.0-0.2) Laboratory Tests Test 05/03/19 04:00 Sodium Level 139 mmol/L (136-145) Potassium Level 4.2 mmol/L (3.5-5.1) Chloride Level 104 mmol/L (98-107) Carbon Dioxide Level 25 mmol/L (21-32) Anion Gap 10 (6-14) Blood Urea Nitrogen 20 mg/dL (7-20) Creatinine 1.0 mg/dL (0.6-1.0) Estimated GFR (Cockcroft-Gault) 53.2 Glucose Level 129 mg/dL (70-99) Calcium Level 9.2 mg/dL (8.5-10.1) Total Bilirubin 4.2 mg/dL (0.2-1.0) Direct Bilirubin 3.4 mg/dL (0.0-0.2) Aspartate Amino Transf (AST/SGOT) 78 U/L (15-37) Alanine Aminotransferase (ALT/SGPT) 119 U/L (14-59) Alkaline Phosphatase 341 U/L (46-116) Total Protein 7.2 g/dL (6.4-8.2) Albumin 2.7 g/dL (3.4-5.0) Amylase Level 66 U/L (25-115) Lipase 495 U/L (73-393) Microbiology 04/26/19 Urine Culture - Final, Complete 04/26/19 Urine Culture Result 1 (QUEENIE) - Final, Complete LFT's, bilirubin continue to improve. Vitals/I & O Vital Sign - Last 24 Hours 05/02/19 05/02/19 05/02/19 05/02/19 13:31 15:05 15:22 17:06 Temp 98.2 98.2 Pulse 81 Resp 16 B/P (MAP) 133/77 (95) Pulse Ox 95 92 95 95 O2 Delivery Room Air Room Air Room Air Room Air O2 Flow Rate 5.0 5.0 5.0 05/02/19 05/02/19 05/02/19 05/02/19 18:36 19:53 20:21 21:46 Temp 98.4 98.4 Pulse 78 Resp 20 B/P (MAP) 145/68 (93) Pulse Ox 95 95 O2 Delivery Room Air Room Air Room Air Room Air O2 Flow Rate 5.0 05/02/19 05/02/19 05/03/19 05/03/19 23:34 23:51 03:55 07:36 Temp 98.7 98.1 97.6 98.7 98.1 97.6 Pulse 78 75 69 Resp 18 20 18 B/P (MAP) 131/85 (100) 118/76 (90) 135/74 (94) Pulse Ox 93 96 93 O2 Delivery Room Air Room Air Room Air Room Air 05/03/19 05/03/19 05/03/19 05/03/19 08:00 08:00 08:00 09:17 Pulse 69 Resp 18 18 B/P (MAP) 135/74 O2 Delivery Room Air Room Air Room Air O2 Flow Rate 5.0 05/03/19 11:40 Temp 98.5 98.5 Pulse 79 Resp 18 B/P (MAP) 121/84 (96) Pulse Ox 95 O2 Delivery Room Air Intake and Output 05/02/19 05/02/19 05/03/19 15:00 23:00 07:00 Intake Total 240 ml 540 ml 100 ml Balance 240 ml 540 ml 100 ml Problem List Problems Medical Problems: (1) Acute hepatitis Status: Acute (2) Epigastric pain Status: Acute (3) Generalized pruritus Status: Acute (4) Obstructive jaundice Status: Acute Assessment Malignant biliary obstruction; numbers improving. 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 Location of obstruction NOT in distal duct, but higher--about mid- duct. Plan of Care Note Await Dr. Branch's input. Will check CA19-9 and CEA; can be elevated with cholangioCA, but if normal would tend to lead away from pancreatic primary (also had NORMAL pancreatic duct at ERCP though we don't see dorsal duct) SRINIVASA OTERO MD May 03, 2019 12:55
[2019-05-03 15:54] VITALS: BP 129/74
[2019-05-03 19:15] VITALS: BP 109/65
[2019-05-03] MEDS: AMITRIPTYLINE HCL 25 MG TABLET. PO SCH (20:49)
--- NOTE | 2019-05-03 21:00 | NUR ---
Pt. transferred from [facility]. Pt's room set up and pt made comfortable. Agree with Ernestina WEATHERS's assessment. No current needs. Will continue to monitor.
[2019-05-03] MEDS: ONDANSETRON PF 4 MG/2 ML VIAL. IV PRN (22:23)
[2019-05-03 22:32] VITALS: BP 124/81
[2019-05-04 03:00] VITALS: BP 108/63
[2019-05-04] MEDS: AMINO AC 3%/ELECTROLYTE/GLYCER 1,000 ML IV SCH ×2 (06:14→18:33)
[2019-05-04] MEDS: hydrOXYzine 25 MG TABLET PO PRN ×2 (06:16→23:04)
[2019-05-04 07:00] VITALS: BP 124/70
[2019-05-04] MEDS: GABAPENTIN 300 MG CAPSULE. PO SCH ×3 (08:12→21:07)
[2019-05-04] MEDS: traMADol 50 MG TABLET PO SCH ×4 (08:12→21:07)
[2019-05-04] MEDS: SERTRALINE 50 MG TABLET. PO SCH (08:12)
[2019-05-04] MEDS: POLYETHYLENE GLYCOL 3350 17 GM PACKET. PO SCH (08:12)
[2019-05-04] MEDS: amLODIPine BESYLATE 5 MG TABLET PO SCH (08:14)
--- NOTE | 2019-05-04 10:39 | PDOC ---
PROGRESS NOTES Subjective Subjective meds helping with pruritus. still with epigastric pain to palpation. discussed with son,Shimon,who is a physician and family about treatment options including a biliary metal stent and biliary bypass and surgical resection. and Shimon will speak with dr. Dave today. discussed dr. Dave's note which was reviewed. Objective Objective Vital Signs Date Time Temp Pulse Resp B/P (MAP) Pulse Ox O2 Delivery O2 Flow Rate FiO2 05/04/19 08:14 72 124/70 05/04/19 07:00 98.0 18 97 Room Air 98.0 05/03/19 08:00 5.0 Intake and Output 05/04/19 06:59 Intake Total 1740 ml Balance 1740 ml Intake Oral 740 ml IV Total 1000 ml # Voids 2 # Bowel Movements 1 Physical Exam Abdomen: Soft, Other (epigastric tenderness) Heart: Regular rate, Normal S1, Normal S2 Extremities: No edema General: Alert HEENT: Atraumatic Lungs: Clear to auscultation Neuro: Normal speech Psych/Mental Status: Mental status NL, Mood NL Skin: No rashes Assessment Assessment Problemsobstructive jaundice . 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 off atorvastatin fibromyalgia post ERCP acute pancreatitis better hypertension Medical Problems: (1) Acute hepatitis Status: Acute (2) Epigastric pain Status: Acute (3) Generalized pruritus Status: Acute (4) Obstructive jaundice Status: Acute Plan Plan of Care continue PPN continue analgesics continue cholestyramine and prn hydroxyzine lab tomorrow CEA and CA19-9 continue full liquids and rest the pancreas lab tomorrow family leaning towards having the surgery done at [facility] if they choose the surgical option Comment Review of Relevant I have reviewed the following items betty (where applicable) has been applied. Labs Laboratory Tests Test 05/03/19 04:00 Sodium Level 139 mmol/L (136-145) Potassium Level 4.2 mmol/L (3.5-5.1) Chloride Level 104 mmol/L (98-107) Carbon Dioxide Level 25 mmol/L (21-32) Anion Gap 10 (6-14) Blood Urea Nitrogen 20 mg/dL (7-20) Creatinine 1.0 mg/dL (0.6-1.0) Estimated GFR (Cockcroft-Gault) 53.2 Glucose Level 129 mg/dL (70-99) Calcium Level 9.2 mg/dL (8.5-10.1) Total Bilirubin 4.2 mg/dL (0.2-1.0) Direct Bilirubin 3.4 mg/dL (0.0-0.2) Aspartate Amino Transf (AST/SGOT) 78 U/L (15-37) Alanine Aminotransferase (ALT/SGPT) 119 U/L (14-59) Alkaline Phosphatase 341 U/L (46-116) Total Protein 7.2 g/dL (6.4-8.2) Albumin 2.7 g/dL (3.4-5.0) Amylase Level 66 U/L (25-115) Lipase 495 U/L (73-393) Microbiology 04/26/19 Urine Culture - Final, Complete 04/26/19 Urine Culture Result 1 (QUEENIE) - Final, Complete Medications Current Medications Iohexol (Omnipaque 300 Mg/ml) 60 ml 1X ONCE IV Last administered on 04/26/19at 12:06; Start 04/26/19 at 12:30; Stop 04/26/19 at 12:31; Status DC Info (CONTRAST GIVEN -- Rx MONITORING) 1 each PRN DAILY PRN MC SEE COMMENTS; Start 04/26/19 at 12:00; Stop 04/28/19 at 11:59; Status DC Ondansetron HCl (Zofran) 4 mg PRN Q6HRS PRN IV NAUSEA/VOMITING Last administered on 04/29/19at 01:04; Start 04/26/19 at 12:30; Stop 04/29/19 at 04:56; Status DC Cholestyramine Resin (Questran Light) 4 gm BID@1000,2200 PO Last administered on 05/03/19at 10:39; Start 04/26/19 at 22:00 Hydroxyzine HCl (Atarax) 25 mg PRN Q6HRS PRN PO ITCHING Last administered on 05/04/19at 06:16; Start 04/26/19 at 12:30 Morphine Sulfate (Morphine Sulfate) 2 mg PRN Q6HRS PRN IV SEVERE PAIN 7-10; Start 04/26/19 at 12:30; Stop 04/26/19 at 12:42; Status DC Acetaminophen/ Hydrocodone Bitart (Lortab 5/325) 1 tab PRN Q6HRS PRN PO MILD PAIN / TEMP; Start 04/26/19 at 12:30; Stop 04/26/19 at 12:42; Status DC Gabapentin (Neurontin) 300 mg TID PO Last administered on 05/04/19 08:14; Start 04/26/19 at 14:00 Lorazepam (Ativan) 0.5 mg PRN BID PRN PO AGITATION; Start 04/26/19 at 12:30 Sertraline HCl (Zoloft) 50 mg DAILY PO Last administered on 05/04/19 08:14; Start 04/27/19 at 09:00 Tramadol HCl (Ultram) 50 mg TID PO Last administered on 04/29/19 09:09; Start 04/26/19 at 14:00; Stop 04/29/19 at 10:09; Status DC Acetaminophen (Tylenol) 325 mg PRN Q6HRS PRN PO MILD PAIN / TEMP; Start 04/26/19 at 12:30 Polyethylene Glycol (miraLAX PACKET) 17 gm DAILY PO Last administered on 05/04/19 08:14; Start 04/27/19 at 09:00 Magnesium Hydroxide (Milk Of Magnesia) 2,400 mg PRN DAILY PRN PO CONSTIPATION Last administered on 04/29/19 02:34; Start 04/26/19 at 12:30 Acetaminophen/ Hydrocodone Bitart (Lortab 5/325) 1 tab PRN Q4HRS PRN PO MODERATE PAIN Last administered on 05/02/19 10:16; Start 04/26/19 at 12:45 Morphine Sulfate (Morphine Sulfate) 1 mg PRN Q4HRS PRN IV SEVERE PAIN 7-10 Last administered on 04/29/19 01:11; Start 04/26/19 at 12:45; Stop 04/29/19 at 04:56; Status DC Levofloxacin/ Dextrose 100 ml @ 100 mls/hr 1X ONCE IV Last administered on 04/28/19 08:31; Start 04/28/19 at 07:15; Stop 04/28/19 at 08:14; Status DC Ringer's Solution 1,000 ml @ 75 mls/hr 1X ONCE IV Last administered on 04/28/19 14:43; Start 04/28/19 at 12:15; Stop 04/29/19 at 01:34; Status DC Iohexol (Omnipaque 300 Mg/ml) 100 ml STK-MED ONCE .ROUTE ; Start 04/28/19 at 13:24; Stop 04/28/19 at 13:25; Status DC Famotidine (Pepcid Vial) 20 mg STK-MED ONCE .ROUTE ; Start 04/28/19 at 14:12; Stop 04/28/19 at 14:13; Status DC Dexamethasone Sodium Phosphate (Decadron) 20 mg STK-MED ONCE .ROUTE ; Start 04/28/19 at 14:13; Stop 04/28/19 at 14:14; Status DC Lidocaine HCl (Lidocaine Pf 2% Vial) 5 ml STK-MED ONCE .ROUTE ; Start 04/28/19 at 15:00; Stop 04/28/19 at 15:01; Status DC Iohexol (Omnipaque 300 Mg/ml) 100 ml STK-MED ONCE IV Last administered on 04/28/19at 16:20; Start 04/28/19 at 16:20; Stop 04/28/19 at 16:48; Status DC Fentanyl Citrate (Fentanyl 2ml Vial) 25 mcg 1X ONCE IV Last administered on 04/28/19at 17:05; Start 04/28/19 at 17:00; Stop 04/28/19 at 17:01; Status DC Morphine Sulfate (Morphine Sulfate) 2 mg PRN Q4HRS PRN IV SEVERE PAIN 7-10; Start 04/29/19 at 05:00 Ondansetron HCl (Zofran) 8 mg PRN Q6HRS PRN IV NAUSEA/VOMITING, 1ST CHOICE Last administered on 05/03/19at 22:23; Start 04/29/19 at 05:00 Prochlorperazine Maleate (Compazine) 10 mg PRN Q6HRS PRN PO NAUSEA/VOMITING; Start 04/29/19 at 05:00 Tramadol HCl (Ultram) 50 mg QID PO Last administered on 05/04/19at 08:14; Start 04/29/19 at 13:00 Potassium Chloride/Dextrose/ Sod Cl 1,000 ml @ 75 mls/hr [id number] IV Last administered on 04/30/19at 02:53; Start 04/29/19 at 10:15; Stop 04/30/19 at 10:45; Status DC Amitriptyline HCl (Elavil) 25 mg QHS PO Last administered on 05/03/19at 20:49; Start 04/29/19 at 21:00 Phenylephrine HCl (PHENYLEPHRINE in 0.9% NACL PF) 1 mg STK-MED ONCE IV ; Start 04/28/19 at 14:00; Stop 04/29/19 at 13:10; Status DC Succinylcholine Chloride (Anectine) 200 mg STK-MED ONCE .ROUTE ; Start 04/28/19 at 14:00; Stop 04/29/19 at 13:10; Status DC Propofol (Diprivan) 200 mg STK-MED ONCE IV ; Start 04/28/19 at 14:00; Stop 04/29/19 at 13:10; Status DC Amino Acids/ Glycerin/ Electrolytes 1,000 ml @ 80 mls/hr [id number] IV Last administered on 05/04/19at 06:16; Start 04/30/19 at 10:45 Amlodipine Besylate (Norvasc) 5 mg DAILY PO Last administered on 05/04/19at 08:14; Start 05/01/19 at 13:00 Hydralazine HCl (Apresoline Inj) 10 mg PRN Q4HRS PRN IVP ELEVATED BP, SEE COMMENTS; Start 05/01/19 at 12:45 Active Scripts Active Zoloft (Sertraline Hcl) 50 Mg Tablet 50 Mg PO DAILY [Polyethylene Glycol 3350] 17 GM Packet 17 Gm PO DAILY [Oxycodone Hcl/Acetaminophen] 1 TAB Tablet 1 Tab PO PRN Q4HRS PRN Neurontin (Gabapentin) 300 Mg Capsule 300 Mg PO TID [Amoxicillin/Potassium Clav] 1 TAB Tablet 1 Tab PO BID [Amitriptyline Hcl] 50 MG Tablet 50 Mg PO QHS Lipitor (Atorvastatin Calcium) 10 Mg Tablet 10 Mg PO QHS Vitals/I & O Vital Sign - Last 24 Hours 05/03/19 05/03/19 05/03/19 05/03/19 11:40 13:58 15:54 18:02 Temp 98.5 97.9 98.5 97.9 Pulse 79 74 Resp 18 18 18 18 B/P (MAP) 121/84 (96) 129/74 (92) Pulse Ox 95 98 O2 Delivery Room Air Room Air Room Air Room Air 05/03/19 05/03/19 05/03/19 05/03/19 18:10 19:15 19:47 20:33 Temp 98.9 98.9 Pulse 76 Resp 18 18 B/P (MAP) 109/65 (80) Pulse Ox 96 O2 Delivery Room Air Room Air Room Air Room Air 05/03/19 05/03/19 05/03/19 05/04/19 20:49 21:42 22:32 03:00 Temp 97.9 97.5 97.9 97.5 Pulse 79 64 Resp 16 16 17 B/P (MAP) 124/81 (95) 108/63 (78) Pulse Ox 96 98 99 O2 Delivery Room Air Room Air Room Air Room Air 05/04/19 05/04/19 07:00 08:14 Temp 98.0 98.0 Pulse 72 72 Resp 18 B/P (MAP) 124/70 (88) 124/70 Pulse Ox 97 O2 Delivery Room Air Intake and Output 05/03/19 05/03/19 05/04/19 14:59 22:59 06:59 Intake Total 400 ml 100 ml 1240 ml Balance 400 ml 100 ml 1240 ml SRINIVASA ABDULLAHI MD May 04, 2019 10:39
[2019-05-04] MEDS: CHOLESTYRAMINE/ASPARTAME 4 GM PACKET PO SCH ×2 (10:42→21:06)
[2019-05-04 11:00] VITALS: BP 120/69
--- NOTE | 2019-05-04 12:03 | PDOC ---
SURGICAL PROGRESS NOTE Subjective no new complaints , her son Shimon who is a physician I know from when he was in [facility], and two grandchildren at the bedside Vital Signs Vital Signs Date Time Temp Pulse Resp B/P (MAP) Pulse Ox O2 Delivery O2 Flow Rate FiO2 05/04/19 11:00 98.0 75 120/69 (86) 97 Room Air 98.0 05/04/19 07:00 18 05/03/19 08:00 5.0 I&O Intake and Output 05/04/19 07:00 Intake Total 1740 ml Balance 1740 ml Intake Oral 740 ml IV Total 1000 ml # Voids 2 # Bowel Movements 1 PATIENT HAS A MACEDO: No General: Alert, Oriented X3, No acute distress Abdomen: Soft, No tenderness Labs Laboratory Tests Test 05/03/19 04:00 Sodium Level 139 mmol/L (136-145) Potassium Level 4.2 mmol/L (3.5-5.1) Chloride Level 104 mmol/L (98-107) Carbon Dioxide Level 25 mmol/L (21-32) Anion Gap 10 (6-14) Blood Urea Nitrogen 20 mg/dL (7-20) Creatinine 1.0 mg/dL (0.6-1.0) Estimated GFR (Cockcroft-Gault) 53.2 Glucose Level 129 mg/dL (70-99) Calcium Level 9.2 mg/dL (8.5-10.1) Total Bilirubin 4.2 mg/dL (0.2-1.0) Direct Bilirubin 3.4 mg/dL (0.0-0.2) Aspartate Amino Transf (AST/SGOT) 78 U/L (15-37) Alanine Aminotransferase (ALT/SGPT) 119 U/L (14-59) Alkaline Phosphatase 341 U/L (46-116) Total Protein 7.2 g/dL (6.4-8.2) Albumin 2.7 g/dL (3.4-5.0) Amylase Level 66 U/L (25-115) Lipase 495 U/L (73-393) I have reviewed the following showed X rays, MRI to her son Shimon Problem List Problems Medical Problems: (1) Acute hepatitis Status: Acute (2) Epigastric pain Status: Acute (3) Generalized pruritus Status: Acute (4) Obstructive jaundice Status: Acute Assessment/Plan 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
--- NOTE | 2019-05-04 13:03 | PDOC ---
G I PROGRESS NOTE Subjective No real complaints. Multiple family members at bedside. Objective Discussed case with son who is physician. Physical Exam Lungs clear. RRR Abdomen soft, not tender nor distended. Review of Relevant I have reviewed the following items betty (where applicable) has been applied. Labs Laboratory Tests Test 05/03/19 04:00 Sodium Level 139 mmol/L (136-145) Potassium Level 4.2 mmol/L (3.5-5.1) Chloride Level 104 mmol/L (98-107) Carbon Dioxide Level 25 mmol/L (21-32) Anion Gap 10 (6-14) Blood Urea Nitrogen 20 mg/dL (7-20) Creatinine 1.0 mg/dL (0.6-1.0) Estimated GFR (Cockcroft-Gault) 53.2 Glucose Level 129 mg/dL (70-99) Calcium Level 9.2 mg/dL (8.5-10.1) Total Bilirubin 4.2 mg/dL (0.2-1.0) Direct Bilirubin 3.4 mg/dL (0.0-0.2) Aspartate Amino Transf (AST/SGOT) 78 U/L (15-37) Alanine Aminotransferase (ALT/SGPT) 119 U/L (14-59) Alkaline Phosphatase 341 U/L (46-116) Total Protein 7.2 g/dL (6.4-8.2) Albumin 2.7 g/dL (3.4-5.0) Amylase Level 66 U/L (25-115) Lipase 495 U/L (73-393) Microbiology 04/26/19 Urine Culture - Final, Complete 04/26/19 Urine Culture Result 1 (QUEENIE) - Final, Complete Vitals/I & O Vital Sign - Last 24 Hours 05/03/19 05/03/19 05/03/19 05/03/19 13:58 15:54 18:02 18:10 Temp 97.9 97.9 Pulse 74 Resp 18 18 18 18 B/P (MAP) 129/74 (92) Pulse Ox 98 O2 Delivery Room Air Room Air Room Air Room Air 05/03/19 05/03/19 05/03/19 05/03/19 19:15 19:47 20:33 20:49 Temp 98.9 98.9 Pulse 76 Resp 18 B/P (MAP) 109/65 (80) Pulse Ox 96 O2 Delivery Room Air Room Air Room Air Room Air 05/03/19 05/03/19 05/04/19 05/04/19 21:42 22:32 03:00 07:00 Temp 97.9 97.5 98.0 97.9 97.5 98.0 Pulse 79 64 72 Resp 16 16 17 18 B/P (MAP) 124/81 (95) 108/63 (78) 124/70 (88) Pulse Ox 96 98 99 97 O2 Delivery Room Air Room Air Room Air Room Air 05/04/19 05/04/19 05/04/19 08:00 08:14 11:00 Temp 98.0 98.0 Pulse 72 75 B/P (MAP) 124/70 120/69 (86) Pulse Ox 97 O2 Delivery Room Air Room Air Intake and Output 05/03/19 05/03/19 05/04/19 15:00 23:00 07:00 Intake Total 400 ml 100 ml 1240 ml Balance 400 ml 100 ml 1240 ml Problem List Problems Medical Problems: (1) Acute hepatitis Status: Acute (2) Epigastric pain Status: Acute (3) Generalized pruritus Status: Acute (4) Obstructive jaundice Status: Acute Assessment CholangioCa, mid-common duct. Drainage achieved for the time being. Plan of Care Note Awaiting Dr. Branch's opinion. SRINIVASA OTERO MD May 04, 2019 13:03
[2019-05-04 15:00] VITALS: BP 102/60
[2019-05-04 19:00] VITALS: BP 128/77
[2019-05-04] MEDS: AMITRIPTYLINE HCL 25 MG TABLET. PO SCH (21:07)
[2019-05-04 22:50] VITALS: BP 106/57
[2019-05-05 03:00] VITALS: BP 120/60
[2019-05-05] MEDS: AMINO AC 3%/ELECTROLYTE/GLYCER 1,000 ML IV SCH ×2 (04:12→15:45)
[2019-05-05 06:43] VITALS: BP 109/65
[2019-05-05] MEDS: HYDROcodone/APAP 5/325MG 1 TAB TABLET PO PRN (08:37)
[2019-05-05] MEDS: SERTRALINE 50 MG TABLET. PO SCH (08:38)
[2019-05-05] MEDS: GABAPENTIN 300 MG CAPSULE. PO SCH ×3 (08:38→20:38)
[2019-05-05] MEDS: amLODIPine BESYLATE 5 MG TABLET PO SCH ×2 (08:38→13:04)
[2019-05-05] MEDS: traMADol 50 MG TABLET PO SCH ×4 (08:38→20:39)
[2019-05-05] MEDS: hydrOXYzine 25 MG TABLET PO PRN ×2 (08:38→20:38)
[2019-05-05] MEDS: CHOLESTYRAMINE/ASPARTAME 4 GM PACKET PO SCH ×2 (08:39→20:38)
[2019-05-05] MEDS: POLYETHYLENE GLYCOL 3350 17 GM PACKET. PO SCH (08:43)
[2019-05-05 08:56] LABS: BASO % 1 % (0-3); EOS # 0.2 x10^3/uL (0.0-0.7); EOS % 4 % (0-3); HEMATOCRIT 35.9 % (36.0-47.0); LYMPH # 1.5 x10^3/uL (1.0-4.8); LYMPH % 26 % (24-48); MEAN CORPUSCULAR HEMOGLOBIN 32 pg (25-35); MEAN CORPUSCULAR HGB CONC 34 g/dL (31-37); MEAN CORPUSCULAR VOLUME 94 fL (79-100); MONO # 0.5 x10^3/uL (0.0-1.1); MONO % 9 % (0-9); NEUT # 3.4 x10^3/uL (1.8-7.7); NEUT % 61 % (31-73); PLATELET COUNT 329 x10^3/uL (140-400); RED BLOOD COUNT 3.82 x10^6/uL (3.50-5.40); RED CELL DISTRIBUTION WIDTH 17.1 % (11.5-14.5); WHITE BLOOD COUNT 5.5 x10^3/uL (4.0-11.0)
[2019-05-05 09:12] LABS: ALBUMIN 2.7 g/dL (3.4-5.0); ALBUMIN/GLOBULIN RATIO 0.6 (1.0-1.7); CALCIUM 9.1 mg/dL (8.5-10.1); GFR 53.2; MAGNESIUM 2.2 mg/dL (1.8-2.4); POTASSIUM 4.6 mmol/L (3.5-5.1); TOTAL PROTEIN 7.2 g/dL (6.4-8.2)
--- NOTE | 2019-05-05 09:45 | PDOC ---
Subjective: Subjective: Doing okay. Objective: Vital Signs: Vital Signs Date Time Temp Pulse Resp B/P (MAP) Pulse Ox O2 Delivery O2 Flow Rate FiO2 05/05/19 08:41 67 109/65 05/05/19 08:41 19 94 Room Air 05/05/19 06:43 97.8 97.8 Labs: Laboratory Tests Test 05/05/19 07:45 White Blood Count 5.5 x10^3/uL Red Blood Count 3.82 x10^6/uL Hemoglobin 12.0 g/dL Hematocrit 35.9 % Mean Corpuscular Volume 94 fL Mean Corpuscular Hemoglobin 32 pg Mean Corpuscular Hemoglobin Concent 34 g/dL Red Cell Distribution Width 17.1 % Platelet Count 329 x10^3/uL Neutrophils (%) (Auto) 61 % Lymphocytes (%) (Auto) 26 % Monocytes (%) (Auto) 9 % Eosinophils (%) (Auto) 4 % Basophils (%) (Auto) 1 % Neutrophils # (Auto) 3.4 x10^3/uL Lymphocytes # (Auto) 1.5 x10^3/uL Monocytes # (Auto) 0.5 x10^3/uL Eosinophils # (Auto) 0.2 x10^3/uL Basophils # (Auto) 0.0 x10^3/uL Sodium Level 140 mmol/L Potassium Level 4.6 mmol/L Chloride Level 106 mmol/L Carbon Dioxide Level 26 mmol/L Anion Gap 8 Blood Urea Nitrogen 22 mg/dL Creatinine 1.0 mg/dL Estimated GFR (Cockcroft-Gault) 53.2 BUN/Creatinine Ratio 22 Glucose Level 118 mg/dL Calcium Level 9.1 mg/dL Magnesium Level 2.2 mg/dL Total Bilirubin 3.0 mg/dL Aspartate Amino Transf (AST/SGOT) 164 U/L Alanine Aminotransferase (ALT/SGPT) 213 U/L Alkaline Phosphatase 279 U/L Total Protein 7.2 g/dL Albumin 2.7 g/dL Albumin/Globulin Ratio 0.6 Amylase Level 65 U/L Lipase 438 U/L PE: GEN: NAD - in restroom, spoke through door NEURO/PSYCH: A & O �3 A/P: Obstructive jaundice s/p ERCP w/ mid (not distal) CBD stricture and normal PD - brushings suspicious for adenocarcinoma -- Surgery following. CORI PEDERSEN May 05, 2019 09:45
--- NOTE | 2019-05-05 10:08 | PDOC ---
PROGRESS NOTES Subjective Subjective feels okay. bilirubin down to 3.0. liver enzymes still elevated,. bp on low side of normal and will decrease amlodipine. still with epigastric tenderness. lipase still elevated. Objective Objective Vital Signs Date Time Temp Pulse Resp B/P (MAP) Pulse Ox O2 Delivery O2 Flow Rate FiO2 05/05/19 08:41 67 109/65 05/05/19 08:41 19 94 Room Air 05/05/19 06:43 97.8 97.8 05/03/19 08:00 5.0 Intake and Output 05/05/19 06:59 Intake Total 1636 ml Balance 1636 ml Intake Oral 736 ml IV Total 900 ml # Voids 2 Physical Exam Abdomen: Soft, Other (epigastric tenderness) Heart: Regular rate, Normal S1, Normal S2 Extremities: No edema General: Alert HEENT: PERRLA Lungs: Clear to auscultation Neuro: Normal speech Psych/Mental Status: Mental status NL Skin: No rashes, Other (less jaundiced) Assessment Assessment Problemsobstructive jaundice . mid CBD stricture dilated. 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 off atorvastatin fibromyalgia post ERCP acute pancreatitis better hypertension Medical Problems: (1) Acute hepatitis Status: Acute (2) Epigastric pain Status: Acute (3) Generalized pruritus Status: Acute (4) Obstructive jaundice Status: Acute Plan Plan of Care decrease amlodipine continue PPN continue analgesics prn continue cholestyramine and prn hydroxyzine await dr. Branch's input regarding surgery Comment Review of Relevant I have reviewed the following items betty (where applicable) has been applied. Labs Laboratory Tests Test 05/05/19 07:45 White Blood Count 5.5 x10^3/uL (4.0-11.0) Red Blood Count 3.82 x10^6/uL (3.50-5.40) Hemoglobin 12.0 g/dL (12.0-15.5) Hematocrit 35.9 % (36.0-47.0) Mean Corpuscular Volume 94 fL (79-100) Mean Corpuscular Hemoglobin 32 pg (25-35) Mean Corpuscular Hemoglobin Concent 34 g/dL (31-37) Red Cell Distribution Width 17.1 % (11.5-14.5) Platelet Count 329 x10^3/uL (140-400) Neutrophils (%) (Auto) 61 % (31-73) Lymphocytes (%) (Auto) 26 % (24-48) Monocytes (%) (Auto) 9 % (0-9) Eosinophils (%) (Auto) 4 % (0-3) Basophils (%) (Auto) 1 % (0-3) Neutrophils # (Auto) 3.4 x10^3/uL (1.8-7.7) Lymphocytes # (Auto) 1.5 x10^3/uL (1.0-4.8) Monocytes # (Auto) 0.5 x10^3/uL (0.0-1.1) Eosinophils # (Auto) 0.2 x10^3/uL (0.0-0.7) Basophils # (Auto) 0.0 x10^3/uL (0.0-0.2) Sodium Level 140 mmol/L (136-145) Potassium Level 4.6 mmol/L (3.5-5.1) Chloride Level 106 mmol/L (98-107) Carbon Dioxide Level 26 mmol/L (21-32) Anion Gap 8 (6-14) Blood Urea Nitrogen 22 mg/dL (7-20) Creatinine 1.0 mg/dL (0.6-1.0) Estimated GFR (Cockcroft-Gault) 53.2 BUN/Creatinine Ratio 22 (6-20) Glucose Level 118 mg/dL (70-99) Calcium Level 9.1 mg/dL (8.5-10.1) Magnesium Level 2.2 mg/dL (1.8-2.4) Total Bilirubin 3.0 mg/dL (0.2-1.0) Aspartate Amino Transf (AST/SGOT) 164 U/L (15-37) Alanine Aminotransferase (ALT/SGPT) 213 U/L (14-59) Alkaline Phosphatase 279 U/L (46-116) Total Protein 7.2 g/dL (6.4-8.2) Albumin 2.7 g/dL (3.4-5.0) Albumin/Globulin Ratio 0.6 (1.0-1.7) Amylase Level 65 U/L (25-115) Lipase 438 U/L (73-393) Laboratory Tests Test 05/05/19 07:45 White Blood Count 5.5 x10^3/uL (4.0-11.0) Red Blood Count 3.82 x10^6/uL (3.50-5.40) Hemoglobin 12.0 g/dL (12.0-15.5) Hematocrit 35.9 % (36.0-47.0) Mean Corpuscular Volume 94 fL (79-100) Mean Corpuscular Hemoglobin 32 pg (25-35) Mean Corpuscular Hemoglobin Concent 34 g/dL (31-37) Red Cell Distribution Width 17.1 % (11.5-14.5) Platelet Count 329 x10^3/uL (140-400) Neutrophils (%) (Auto) 61 % (31-73) Lymphocytes (%) (Auto) 26 % (24-48) Monocytes (%) (Auto) 9 % (0-9) Eosinophils (%) (Auto) 4 % (0-3) Basophils (%) (Auto) 1 % (0-3) Neutrophils # (Auto) 3.4 x10^3/uL (1.8-7.7) Lymphocytes # (Auto) 1.5 x10^3/uL (1.0-4.8) Monocytes # (Auto) 0.5 x10^3/uL (0.0-1.1) Eosinophils # (Auto) 0.2 x10^3/uL (0.0-0.7) Basophils # (Auto) 0.0 x10^3/uL (0.0-0.2) Sodium Level 140 mmol/L (136-145) Potassium Level 4.6 mmol/L (3.5-5.1) Chloride Level 106 mmol/L (98-107) Carbon Dioxide Level 26 mmol/L (21-32) Anion Gap 8 (6-14) Blood Urea Nitrogen 22 mg/dL (7-20) Creatinine 1.0 mg/dL (0.6-1.0) Estimated GFR (Cockcroft-Gault) 53.2 BUN/Creatinine Ratio 22 (6-20) Glucose Level 118 mg/dL (70-99) Calcium Level 9.1 mg/dL (8.5-10.1) Magnesium Level 2.2 mg/dL (1.8-2.4) Total Bilirubin 3.0 mg/dL (0.2-1.0) Aspartate Amino Transf (AST/SGOT) 164 U/L (15-37) Alanine Aminotransferase (ALT/SGPT) 213 U/L (14-59) Alkaline Phosphatase 279 U/L (46-116) Total Protein 7.2 g/dL (6.4-8.2) Albumin 2.7 g/dL (3.4-5.0) Albumin/Globulin Ratio 0.6 (1.0-1.7) Amylase Level 65 U/L (25-115) Lipase 438 U/L (73-393) Microbiology 04/26/19 Urine Culture - Final, Complete 04/26/19 Urine Culture Result 1 (QUEENIE) - Final, Complete Medications Current Medications Iohexol (Omnipaque 300 Mg/ml) 60 ml 1X ONCE IV Last administered on 04/26/19at 12:06; Start 04/26/19 at 12:30; Stop 04/26/19 at 12:31; Status DC Info (CONTRAST GIVEN -- Rx MONITORING) 1 each PRN DAILY PRN MC SEE COMMENTS; Start 04/26/19 at 12:00; Stop 04/28/19 at 11:59; Status DC Ondansetron HCl (Zofran) 4 mg PRN Q6HRS PRN IV NAUSEA/VOMITING Last admi nistered on 04/29/19at 01:04; Start 04/26/19 at 12:30; Stop 04/29/19 at 04:56; Status DC Cholestyramine Resin (Questran Light) 4 gm BID@1000,2200 PO Last administered on 05/05/19at 08:41; Start 04/26/19 at 22:00 Hydroxyzine HCl (Atarax) 25 mg PRN Q6HRS PRN PO ITCHING Last administered on 05/05/19at 08:41; Start 04/26/19 at 12:30 Morphine Sulfate (Morphine Sulfate) 2 mg PRN Q6HRS PRN IV SEVERE PAIN 7-10; Start 04/26/19 at 12:30; Stop 04/26/19 at 12:42; Status DC Acetaminophen/ Hydrocodone Bitart (Lortab 5/325) 1 tab PRN Q6HRS PRN PO MILD PAIN / TEMP; Start 04/26/19 at 12:30; Stop 04/26/19 at 12:42; Status DC Gabapentin (Neurontin) 300 mg TID PO Last administered on 05/05/19 08:41; Start 04/26/19 at 14:00 Lorazepam (Ativan) 0.5 mg PRN BID PRN PO AGITATION; Start 04/26/19 at 12:30 Sertraline HCl (Zoloft) 50 mg DAILY PO Last administered on 05/05/19 08:41; Start 04/27/19 at 09:00 Tramadol HCl (Ultram) 50 mg TID PO Last administered on 04/29/19 09:09; Start 04/26/19 at 14:00; Stop 04/29/19 at 10:09; Status DC Acetaminophen (Tylenol) 325 mg PRN Q6HRS PRN PO MILD PAIN / TEMP; Start 04/26/19 at 12:30 Polyethylene Glycol (miraLAX PACKET) 17 gm DAILY PO Last administered on 05/04/19 08:14; Start 04/27/19 at 09:00 Magnesium Hydroxide (Milk Of Magnesia) 2,400 mg PRN DAILY PRN PO CONSTIPATION Last administered on 04/29/19 02:34; Start 04/26/19 at 12:30 Acetaminophen/ Hydrocodone Bitart (Lortab 5/325) 1 tab PRN Q4HRS PRN PO MODERATE PAIN Last administered on 05/05/19 08:41; Start 04/26/19 at 12:45 Morphine Sulfate (Morphine Sulfate) 1 mg PRN Q4HRS PRN IV SEVERE PAIN 7-10 Last administered on 04/29/19 01:11; Start 04/26/19 at 12:45; Stop 04/29/19 at 04:56; Status DC Levofloxacin/ Dextrose 100 ml @ 100 mls/hr 1X ONCE IV Last administered on 04/28/19 08:31; Start 04/28/19 at 07:15; Stop 04/28/19 at 08:14; Status DC Ringer's Solution 1,000 ml @ 75 mls/hr 1X ONCE IV Last administered on 04/28/19 14:43; Start 04/28/19 at 12:15; Stop 04/29/19 at 01:34; Status DC Iohexol (Omnipaque 300 Mg/ml) 100 ml STK-MED ONCE .ROUTE ; Start 04/28/19 at 13:24; Stop 04/28/19 at 13:25; Status DC Famotidine (Pepcid Vial) 20 mg STK-MED ONCE .ROUTE ; Start 04/28/19 at 14:12; St op 04/28/19 at 14:13; Status DC Dexamethasone Sodium Phosphate (Decadron) 20 mg STK-MED ONCE .ROUTE ; Start 04/28/19 at 14:13; Stop 04/28/19 at 14:14; Status DC Lidocaine HCl (Lidocaine Pf 2% Vial) 5 ml STK-MED ONCE .ROUTE ; Start 04/28/19 at 15:00; Stop 04/28/19 at 15:01; Status DC Iohexol (Omnipaque 300 Mg/ml) 100 ml STK-MED ONCE IV Last administered on 04/28/19at 16:20; Start 04/28/19 at 16:20; Stop 04/28/19 at 16:48; Status DC Fentanyl Citrate (Fentanyl 2ml Vial) 25 mcg 1X ONCE IV Last administered on 04/28/19at 17:05; Start 04/28/19 at 17:00; Stop 04/28/19 at 17:01; Status DC Morphine Sulfate (Morphine Sulfate) 2 mg PRN Q4HRS PRN IV SEVERE PAIN 7-10; Start 04/29/19 at 05:00 Ondansetron HCl (Zofran) 8 mg PRN Q6HRS PRN IV NAUSEA/VOMITING, 1ST CHOICE Last administered on 05/03/19at 22:23; Start 04/29/19 at 05:00 Prochlorperazine Maleate (Compazine) 10 mg PRN Q6HRS PRN PO NAUSEA/VOMITING; Start 04/29/19 at 05:00 Tramadol HCl (Ultram) 50 mg QID PO Last administered on 05/05/19at 08:41; Start 04/29/19 at 13:00 Potassium Chloride/Dextrose/ Sod Cl 1,000 ml @ 75 mls/hr [id number] IV Last administered on 04/30/19at 02:53; Start 04/29/19 at 10:15; Stop 04/30/19 at 10:45; Status DC Amitriptyline HCl (Elavil) 25 mg QHS PO Last administered on 05/04/19at 21:07; Start 04/29/19 at 21:00 Phenylephrine HCl (PHENYLEPHRINE in 0.9% NACL PF) 1 mg STK-MED ONCE IV ; Start 04/28/19 at 14:00; Stop 04/29/19 at 13:10; Status DC Succinylcholine Chloride (Anectine) 200 mg STK-MED ONCE .ROUTE ; Start 04/28/19 at 14:00; Stop 04/29/19 at 13:10; Status DC Propofol (Diprivan) 200 mg STK-MED ONCE IV ; Start 04/28/19 at 14:00; Stop 04/29/19 at 13:10; Status DC Amino Acids/ Glycerin/ Electrolytes 1,000 ml @ 80 mls/hr [id number] IV Last administered on 05/05/19at 04:12; Start 04/30/19 at 10:45 Amlodipine Besylate (Norvasc) 5 mg DAILY PO Last administered on 05/05/19at 08:41; Start 05/01/19 at 13:00 Hydralazine HCl (Apresoline Inj) 10 mg PRN Q4HRS PRN IVP ELEVATED BP, SEE COMMENTS; Start 05/01/19 at 12:45 Active Scripts Active Zoloft (Sertraline Hcl) 50 Mg Tablet 50 Mg PO DAILY [Polyethylene Glycol 3350] 17 GM Packet 17 Gm PO DAILY [Oxycodone Hcl/Acetaminophen] 1 TAB Tablet 1 Tab PO PRN Q4HRS PRN Neurontin (Gabapentin) 300 Mg Capsule 300 Mg PO TID [Amoxicillin/Potassium Clav] 1 TAB Tablet 1 Tab PO BID [Amitriptyline Hcl] 50 MG Tablet 50 Mg PO QHS Lipitor (Atorvastatin Calcium) 10 Mg Tablet 10 Mg PO QHS Vitals/I & O Vital Sign - Last 24 Hours 05/04/19 05/04/19 05/04/19 05/04/19 11:00 15:00 19:00 19:54 Temp 98.0 98.1 97.8 98.0 98.1 97.8 Pulse 75 69 78 Resp 18 16 18 B/P (MAP) 120/69 (86) 102/60 (74) 128/77 (94) Pulse Ox 97 96 96 96 O2 Delivery Room Air Room Air Room Air Room Air 05/04/19 05/04/19 05/04/19 05/04/19 20:14 21:07 22:13 22:50 Temp 98.5 98.5 Pulse 63 Resp 16 17 B/P (MAP) 106/57 (73) Pulse Ox 96 96 96 O2 Delivery Room Air Room Air Room Air Room Air 05/05/19 05/05/19 05/05/19 05/05/19 03:00 06:43 08:41 08:41 Temp 98.1 97.8 98.1 97.8 Pulse 64 67 Resp 19 B/P (MAP) 120/60 (80) 109/65 (80) Pulse Ox 99 95 94 94 O2 Delivery Room Air Room Air Room Air Room Air 05/05/19 08:41 Pulse 67 B/P (MAP) 109/65 l Intake and Output 05/04/19 05/04/19 05/05/19 14:59 22:59 06:59 Intake Total 236 ml 900 ml 500 ml Balance 236 ml 900 ml 500 ml SRINIVASA ABDULLAIH MD May 05, 2019 10:08
--- NOTE | 2019-05-05 10:26 | NUR ---
SW following pt. Discussed with RN and anticipate pt to be seen by Dr. Branch today (Sx vs no Sx). No SW needs at this time.
[2019-05-05 11:00] VITALS: BP 123/76
[2019-05-05 13:10] LABS: CEA 2.3 ng/mL (0.0-4.7)
--- NOTE | 2019-05-05 14:30 | PDOC ---
SURGICAL PROGRESS NOTE Subjective Pt without c/o, denies N/v, denies pain Vital Signs Vital Signs Date Time Temp Pulse Resp B/P (MAP) Pulse Ox O2 Delivery O2 Flow Rate FiO2 05/05/19 13:05 67 123/76 05/05/19 13:05 20 93 Room Air 05/05/19 11:00 97.8 97.8 I&O Intake and Output 05/05/19 07:00 Intake Total 1636 ml Balance 1636 ml Intake Oral 736 ml IV Total 900 ml # Voids 2 General: Alert, Oriented X3, Cooperative, No acute distress Abdomen: Soft, No tenderness, No masses Labs Laboratory Tests Test 05/05/19 07:45 White Blood Count 5.5 x10^3/uL (4.0-11.0) Red Blood Count 3.82 x10^6/uL (3.50-5.40) Hemoglobin 12.0 g/dL (12.0-15.5) Hematocrit 35.9 % (36.0-47.0) Mean Corpuscular Volume 94 fL (79-100) Mean Corpuscular Hemoglobin 32 pg (25-35) Mean Corpuscular Hemoglobin Concent 34 g/dL (31-37) Red Cell Distribution Width 17.1 % (11.5-14.5) Platelet Count 329 x10^3/uL (140-400) Neutrophils (%) (Auto) 61 % (31-73) Lymphocytes (%) (Auto) 26 % (24-48) Monocytes (%) (Auto) 9 % (0-9) Eosinophils (%) (Auto) 4 % (0-3) Basophils (%) (Auto) 1 % (0-3) Neutrophils # (Auto) 3.4 x10^3/uL (1.8-7.7) Lymphocytes # (Auto) 1.5 x10^3/uL (1.0-4.8) Monocytes # (Auto) 0.5 x10^3/uL (0.0-1.1) Eosinophils # (Auto) 0.2 x10^3/uL (0.0-0.7) Basophils # (Auto) 0.0 x10^3/uL (0.0-0.2) Sodium Level 140 mmol/L (136-145) Potassium Level 4.6 mmol/L (3.5-5.1) Chloride Level 106 mmol/L (98-107) Carbon Dioxide Level 26 mmol/L (21-32) Anion Gap 8 (6-14) Blood Urea Nitrogen 22 mg/dL (7-20) Creatinine 1.0 mg/dL (0.6-1.0) Estimated GFR (Cockcroft-Gault) 53.2 BUN/Creatinine Ratio 22 (6-20) Glucose Level 118 mg/dL (70-99) Calcium Level 9.1 mg/dL (8.5-10.1) Magnesium Level 2.2 mg/dL (1.8-2.4) Total Bilirubin 3.0 mg/dL (0.2-1.0) Aspartate Amino Transf (AST/SGOT) 164 U/L (15-37) Alanine Aminotransferase (ALT/SGPT) 213 U/L (14-59) Alkaline Phosphatase 279 U/L (46-116) Total Protein 7.2 g/dL (6.4-8.2) Albumin 2.7 g/dL (3.4-5.0) Albumin/Globulin Ratio 0.6 (1.0-1.7) Amylase Level 65 U/L (25-115) Lipase 438 U/L (73-393) Laboratory Tests Test 05/05/19 07:45 White Blood Count 5.5 x10^3/uL (4.0-11.0) Red Blood Count 3.82 x10^6/uL (3.50-5.40) Hemoglobin 12.0 g/dL (12.0-15.5) Hematocrit 35.9 % (36.0-47.0) Mean Corpuscular Volume 94 fL (79-100) Mean Corpuscular Hemoglobin 32 pg (25-35) Mean Corpuscular Hemoglobin Concent 34 g/dL (31-37) Red Cell Distribution Width 17.1 % (11.5-14.5) Platelet Count 329 x10^3/uL (140-400) Neutrophils (%) (Auto) 61 % (31-73) Lymphocytes (%) (Auto) 26 % (24-48) Monocytes (%) (Auto) 9 % (0-9) Eosinophils (%) (Auto) 4 % (0-3) Basophils (%) (Auto) 1 % (0-3) Neutrophils # (Auto) 3.4 x10^3/uL (1.8-7.7) Lymphocytes # (Auto) 1.5 x10^3/uL (1.0-4.8) Monocytes # (Auto) 0.5 x10^3/uL (0.0-1.1) Eosinophils # (Auto) 0.2 x10^3/uL (0.0-0.7) Basophils # (Auto) 0.0 x10^3/uL (0.0-0.2) Sodium Level 140 mmol/L (136-145) Potassium Level 4.6 mmol/L (3.5-5.1) Chloride Level 106 mmol/L (98-107) Carbon Dioxide Level 26 mmol/L (21-32) Anion Gap 8 (6-14) Blood Urea Nitrogen 22 mg/dL (7-20) Creatinine 1.0 mg/dL (0.6-1.0) Estimated GFR (Cockcroft-Gault) 53.2 BUN/Creatinine Ratio 22 (6-20) Glucose Level 118 mg/dL (70-99) Calcium Level 9.1 mg/dL (8.5-10.1) Magnesium Level 2.2 mg/dL (1.8-2.4) Total Bilirubin 3.0 mg/dL (0.2-1.0) Aspartate Amino Transf (AST/SGOT) 164 U/L (15-37) Alanine Aminotransferase (ALT/SGPT) 213 U/L (14-59) Alkaline Phosphatase 279 U/L (46-116) Total Protein 7.2 g/dL (6.4-8.2) Albumin 2.7 g/dL (3.4-5.0) Albumin/Globulin Ratio 0.6 (1.0-1.7) Amylase Level 65 U/L (25-115) Lipase 438 U/L (73-393) Problem List Problems Medical Problems: (1) Acute hepatitis Status: Acute (2) Epigastric pain Status: Acute (3) Generalized pruritus Status: Acute (4) Obstructive jaundice Status: Acute Assessment/Plan reviewed ERCP with Dr. Bingham. 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 Would favor proceeding with bile duct excision with lymphadenectomy and reconstruction vs possible whipple. Pt and pt's family will consider and will tentatively plan surgery 05/08. MATT CALLEJAS MD May 05, 2019 14:30
[2019-05-05 15:00] VITALS: BP 115/61
[2019-05-05 19:00] VITALS: BP 124/62
[2019-05-05] MEDS: AMITRIPTYLINE HCL 25 MG TABLET. PO SCH (20:38)
[2019-05-05 23:00] VITALS: BP 120/69
[2019-05-06 03:00] VITALS: BP 94/46
[2019-05-06 07:00] VITALS: BP 106/65
[2019-05-06] MEDS: POLYETHYLENE GLYCOL 3350 17 GM PACKET. PO SCH (09:00)
[2019-05-06] MEDS: traMADol 50 MG TABLET PO SCH ×4 (09:26→21:03)
[2019-05-06] MEDS: GABAPENTIN 300 MG CAPSULE. PO SCH ×3 (09:26→20:59)
[2019-05-06] MEDS: SERTRALINE 50 MG TABLET. PO SCH (09:26)
[2019-05-06] MEDS: amLODIPine BESYLATE 5 MG TABLET PO SCH (09:27)
[2019-05-06] MEDS: AMINO AC 3%/ELECTROLYTE/GLYCER 1,000 ML IV SCH (09:28)
[2019-05-06] MEDS: CHOLESTYRAMINE/ASPARTAME 4 GM PACKET PO SCH ×2 (10:00→20:58)
--- NOTE | 2019-05-06 10:05 | PDOC ---
PROGRESS NOTES Subjective Subjective feels better. less itching. seen by and patient concurs with surgery on 05/08. systolic bp 106 and will d/c amlodipine Objective Objective Vital Signs Date Time Temp Pulse Resp B/P (MAP) Pulse Ox O2 Delivery O2 Flow Rate FiO2 05/06/19 09:28 58 106/65 05/06/19 09:28 20 93 Room Air 05/06/19 07:00 98.2 98.2 05/06/19 03:00 5.0 Intake and Output 05/06/19 07:00 Intake Total 1360 ml Balance 1360 ml Intake Oral 1360 ml # Voids 1 # Bowel Movements 1 Physical Exam Abdomen: Soft, Other (epigastric tenderness. no guarding) Heart: Regular rate, Normal S1, Normal S2 Extremities: No edema General: Alert HEENT: Atraumatic, PERRLA Lungs: Clear to auscultation Neuro: Normal speech Psych/Mental Status: Mental status NL Skin: No rashes Assessment Assessment Problems Medical Problems:bstructive jaundice . mid CBD stricture dilated. 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 off atorvastatin fibromyalgia post ERCP acute pancreatitis better hypertension. bp low normal (1) Acute hepatitis Status: Acute (2) Epigastric pain Status: Acute (3) Generalized pruritus Status: Acute (4) Obstructive jaundice Status: Acute Plan Plan of Care d/c amlodipine surgery 05/08 continue PPN continue full liquids continue analgesics continue cholestyramine and prn hydroxyzine lab tomorrow discussed with her Comment Review of Relevant I have reviewed the following items betty (where applicable) has been applied. Labs Laboratory Tests Test 05/05/19 07:45 White Blood Count 5.5 x10^3/uL (4.0-11.0) Red Blood Count 3.82 x10^6/uL (3.50-5.40) Hemoglobin 12.0 g/dL (12.0-15.5) Hematocrit 35.9 % (36.0-47.0) Mean Corpuscular Volume 94 fL (79-100) Mean Corpuscular Hemoglobin 32 pg (25-35) Mean Corpuscular Hemoglobin Concent 34 g/dL (31-37) Red Cell Distribution Width 17.1 % (11.5-14.5) Platelet Count 329 x10^3/uL (140-400) Neutrophils (%) (Auto) 61 % (31-73) Lymphocytes (%) (Auto) 26 % (24-48) Monocytes (%) (Auto) 9 % (0-9) Eosinophils (%) (Auto) 4 % (0-3) Basophils (%) (Auto) 1 % (0-3) Neutrophils # (Auto) 3.4 x10^3/uL (1.8-7.7) Lymphocytes # (Auto) 1.5 x10^3/uL (1.0-4.8) Monocytes # (Auto) 0.5 x10^3/uL (0.0-1.1) Eosinophils # (Auto) 0.2 x10^3/uL (0.0-0.7) Basophils # (Auto) 0.0 x10^3/uL (0.0-0.2) Sodium Level 140 mmol/L (136-145) Potassium Level 4.6 mmol/L (3.5-5.1) Chloride Level 106 mmol/L (98-107) Carbon Dioxide Level 26 mmol/L (21-32) Anion Gap 8 (6-14) Blood Urea Nitrogen 22 mg/dL (7-20) Creatinine 1.0 mg/dL (0.6-1.0) Estimated GFR (Cockcroft-Gault) 53.2 BUN/Creatinine Ratio 22 (6-20) Glucose Level 118 mg/dL (70-99) Calcium Level 9.1 mg/dL (8.5-10.1) Magnesium Level 2.2 mg/dL (1.8-2.4) Total Bilirubin 3.0 mg/dL (0.2-1.0) Aspartate Amino Transf (AST/SGOT) 164 U/L (15-37) Alanine Aminotransferase (ALT/SGPT) 213 U/L (14-59) Alkaline Phosphatase 279 U/L (46-116) Total Protein 7.2 g/dL (6.4-8.2) Albumin 2.7 g/dL (3.4-5.0) Albumin/Globulin Ratio 0.6 (1.0-1.7) Amylase Level 65 U/L (25-115) Lipase 438 U/L (73-393) Microbiology 04/26/19 Urine Culture - Final, Complete 04/26/19 Urine Culture Result 1 (QUEENIE) - Final, Complete Medications Current Medications Iohexol (Omnipaque 300 Mg/ml) 60 ml 1X ONCE IV Last administered on 04/26/19at 12:06; Start 04/26/19 at 12:30; Stop 04/26/19 at 12:31; Status DC Info (CONTRAST GIVEN -- Rx MONITORING) 1 each PRN DAILY PRN MC SEE COMMENTS; Start 04/26/19 at 12:00; Stop 04/28/19 at 11:59; Status DC Ondansetron HCl (Zofran) 4 mg PRN Q6HRS PRN IV NAUSEA/VOMITING Last administered on 04/29/19at 01:04; Start 04/26/19 at 12:30; Stop 04/29/19 at 04:56; Status DC Cholestyramine Resin (Questran Light) 4 gm BID@1000,2200 PO Last administered on 05/05/19at 20:40; Start 04/26/19 at 22:00 Hydroxyzine HCl (Atarax) 25 mg PRN Q6HRS PRN PO ITCHING Last administered on 05/05/19at 20:40; Start 04/26/19 at 12:30 Morphine Sulfate (Morphine Sulfate) 2 mg PRN Q6HRS PRN IV SEVERE PAIN 7-10; Start 04/26/19 at 12:30; Stop 04/26/19 at 12:42; Status DC Acetaminophen/ Hydrocodone Bitart (Lortab 5/325) 1 tab PRN Q6HRS PRN PO MILD PAIN / TEMP; Start 04/26/19 at 12:30; Stop 04/26/19 at 12:42; Status DC Gabapentin (Neurontin) 300 mg TID PO Last administered on 05/06/19 09:28; Start 04/26/19 at 14:00 Lorazepam (Ativan) 0.5 mg PRN BID PRN PO AGITATION; Start 04/26/19 at 12:30 Sertraline HCl (Zoloft) 50 mg DAILY PO Last administered on 05/06/19at 09:28; Start 04/27/19 at 09:00 Tramadol HCl (Ultram) 50 mg TID PO Last administered on 04/29/19 09:09; Start 04/26/19 at 14:00; Stop 04/29/19 at 10:09; Status DC Acetaminophen (Tylenol) 325 mg PRN Q6HRS PRN PO MILD PAIN / TEMP; Start 04/26/19 at 12:30 Polyethylene Glycol (miraLAX PACKET) 17 gm DAILY PO Last administered on 05/04/19at 08:14; Start 04/27/19 at 09:00 Magnesium Hydroxide (Milk Of Magnesia) 2,400 mg PRN DAILY PRN PO CONSTIPATION Last administered on 04/29/19at 02:34; Start 04/26/19 at 12:30 Acetaminophen/ Hydrocodone Bitart (Lortab 5/325) 1 tab PRN Q4HRS PRN PO MODERATE PAIN Last administered on 05/05/19at 08:41; Start 04/26/19 at 12:45 Morphine Sulfate (Morphine Sulfate) 1 mg PRN Q4HRS PRN IV SEVERE PAIN 7-10 Last administered on 04/29/19at 01:11; Start 04/26/19 at 12:45; Stop 04/29/19 at 04:56; Status DC Levofloxacin/ Dextrose 100 ml @ 100 mls/hr 1X ONCE IV Last administered on 04/28/19at 08:31; Start 04/28/19 at 07:15; Stop 04/28/19 at 08:14; Status DC Ringer's Solution 1,000 ml @ 75 mls/hr 1X ONCE IV Last administered on 04/28/19at 14:43; Start 04/28/19 at 12:15; Stop 04/29/19 at 01:34; Status DC Iohexol (Omnipaque 300 Mg/ml) 100 ml STK-MED ONCE .ROUTE ; Start 04/28/19 at 13:24; Stop 04/28/19 at 13:25; Status DC Famotidine (Pepcid Vial) 20 mg STK-MED ONCE .ROUTE ; Start 04/28/19 at 14:12; Stop 04/28/19 at 14:13; Status DC Dexamethasone Sodium Phosphate (Decadron) 20 mg STK-MED ONCE .ROUTE ; Start 04/28/19 at 14:13; Stop 04/28/19 at 14:14; Status DC Lidocaine HCl (Lidocaine Pf 2% Vial) 5 ml STK-MED ONCE .ROUTE ; Start 04/28/19 at 15:00; Stop 04/28/19 at 15:01; Status DC Iohexol (Omnipaque 300 Mg/ml) 100 ml STK-MED ONCE IV Last administered on 04/28/19at 16:20; Start 04/28/19 at 16:20; Stop 04/28/19 at 16:48; Status DC Fentanyl Citrate (Fentanyl 2ml Vial) 25 mcg 1X ONCE IV Last administered on 04/28/19at 17:05; Start 04/28/19 at 17:00; Stop 04/28/19 at 17:01; Status DC Morphine Sulfate (Morphine Sulfate) 2 mg PRN Q4HRS PRN IV SEVERE PAIN 7-10; Start 04/29/19 at 05:00 Ondansetron HCl (Zofran) 8 mg PRN Q6HRS PRN IV NAUSEA/VOMITING, 1ST CHOICE Last administered on 05/03/19at 22:23; Start 04/29/19 at 05:00 Prochlorperazine Maleate (Compazine) 10 mg PRN Q6HRS PRN PO NAUSEA/VOMITING; Start 04/29/19 at 05:00 Tramadol HCl (Ultram) 50 mg QID PO Last administered on 05/06/19at 09:28; Start 04/29/19 at 13:00 Potassium Chloride/Dextrose/ Sod Cl 1,000 ml @ 75 mls/hr [id number] IV Last administered on 04/30/19at 02:53; Start 04/29/19 at 10:15; Stop 04/30/19 at 10:45; Status DC Amitriptyline HCl (Elavil) 25 mg QHS PO Last administered on 05/05/19at 20:40; Start 04/29/19 at 21:00 Phenylephrine HCl (PHENYLEPHRINE in 0.9% NACL PF) 1 mg STK-MED ONCE IV ; Start 04/28/19 at 14:00; Stop 04/29/19 at 13:10; Status DC Succinylcholine Chloride (Anectine) 200 mg STK-MED ONCE .ROUTE ; Start 04/28/19 at 14:00; Stop 04/29/19 at 13:10; Status DC Propofol (Diprivan) 200 mg STK-MED ONCE IV ; Start 04/28/19 at 14:00; Stop 04/29/19 at 13:10; Status DC Amino Acids/ Glycerin/ Electrolytes 1,000 ml @ 80 mls/hr [id number] IV Last administered on 05/06/19at 09:28; Start 04/30/19 at 10:45 Amlodipine Besylate (Norvasc) 5 mg DAILY PO Last administered on 05/05/19at 08:41; Start 05/01/19 at 13:00; Stop 05/05/19 at 10:06; Status DC Hydralazine HCl (Apresoline Inj) 10 mg PRN Q4HRS PRN IVP ELEVATED BP, SEE COMMENTS; Start 05/01/19 at 12:45 Amlodipine Besylate (Norvasc) 2.5 mg DAILY PO Last administered on 05/06/19at 09:28; Start 05/05/19 at 10:30 Active Scripts Active Zoloft (Sertraline Hcl) 50 Mg Tablet 50 Mg PO DAILY [Polyethylene Glycol 3350] 17 GM Packet 17 Gm PO DAILY [Oxycodone Hcl/Acetaminophen] 1 TAB Tablet 1 Tab PO PRN Q4HRS PRN Neurontin (Gabapentin) 300 Mg Capsule 300 Mg PO TID [Amoxicillin/Potassium Clav] 1 TAB Tablet 1 Tab PO BID [Amitriptyline Hcl] 50 MG Tablet 50 Mg PO QHS Lipitor (Atorvastatin Calcium) 10 Mg Tablet 10 Mg PO QHS Vitals/I & O Vital Sign - Last 24 Hours 05/05/19 05/05/19 05/05/19 05/05/19 11:00 12:57 12:57 13:05 Temp 97.8 97.8 Pulse 67 Resp 16 20 20 20 B/P (MAP) 123/76 (92) Pulse Ox 93 94 94 93 O2 Delivery Room Air Room Air Room Air Room Air 05/05/19 05/05/19 05/05/19 05/05/19 13:05 15:00 15:57 16:56 Temp 98.1 98.1 Pulse 67 63 Resp 16 20 20 B/P (MAP) 123/76 115/61 (79) Pulse Ox 94 93 97 O2 Delivery Room Air Room Air Room Air 05/05/19 05/05/19 05/05/19 05/05/19 18:04 19:00 20:14 20:40 Temp 98.1 98.1 Pulse 78 Resp 20 18 18 B/P (MAP) 124/62 (82) Pulse Ox 94 100 O2 Delivery Room Air Room Air Room Air Room Air O2 Flow Rate 5.0 05/05/19 05/05/19 05/06/19 05/06/19 21:46 23:00 03:00 07:00 Temp 98.4 98.2 98.2 98.4 98.2 98.2 Pulse 71 58 58 Resp 18 18 14 B/P (MAP) 120/69 (86) 94/46 (62) 106/65 (79) Pulse Ox 98 100 94 O2 Delivery Room Air Room Air Room Air Room Air O2 Flow Rate 5.0 5.0 05/06/19 05/06/19 09:28 09:28 Pulse 58 Resp 20 B/P (MAP) 106/65 Pulse Ox 93 O2 Delivery Room Air Intake and Output 05/05/19 05/05/19 05/06/19 15:00 23:00 07:00 Intake Total 760 ml 360 ml 240 ml Balance 760 ml 360 ml 240 ml SRINIVASA ABDULLAHI MD May 06, 2019 10:05
--- NOTE | 2019-05-06 10:11 | PDOC ---
SURGICAL PROGRESS NOTE Subjective Pt without new c/o, deborah diet Vital Signs Vital Signs Date Time Temp Pulse Resp B/P (MAP) Pulse Ox O2 Delivery O2 Flow Rate FiO2 05/06/19 09:28 58 106/65 05/06/19 09:28 20 93 Room Air 05/06/19 07:00 98.2 98.2 05/06/19 03:00 5.0 I&O Intake and Output 05/06/19 07:00 Intake Total 1360 ml Balance 1360 ml Intake Oral 1360 ml # Voids 1 # Bowel Movements 1 General: Alert, Oriented X3, Cooperative, No acute distress Abdomen: Soft, No tenderness Labs Laboratory Tests Test 05/05/19 07:45 White Blood Count 5.5 x10^3/uL (4.0-11.0) Red Blood Count 3.82 x10^6/uL (3.50-5.40) Hemoglobin 12.0 g/dL (12.0-15.5) Hematocrit 35.9 % (36.0-47.0) Mean Corpuscular Volume 94 fL (79-100) Mean Corpuscular Hemoglobin 32 pg (25-35) Mean Corpuscular Hemoglobin Concent 34 g/dL (31-37) Red Cell Distribution Width 17.1 % (11.5-14.5) Platelet Count 329 x10^3/uL (140-400) Neutrophils (%) (Auto) 61 % (31-73) Lymphocytes (%) (Auto) 26 % (24-48) Monocytes (%) (Auto) 9 % (0-9) Eosinophils (%) (Auto) 4 % (0-3) Basophils (%) (Auto) 1 % (0-3) Neutrophils # (Auto) 3.4 x10^3/uL (1.8-7.7) Lymphocytes # (Auto) 1.5 x10^3/uL (1.0-4.8) Monocytes # (Auto) 0.5 x10^3/uL (0.0-1.1) Eosinophils # (Auto) 0.2 x10^3/uL (0.0-0.7) Basophils # (Auto) 0.0 x10^3/uL (0.0-0.2) Sodium Level 140 mmol/L (136-145) Potassium Level 4.6 mmol/L (3.5-5.1) Chloride Level 106 mmol/L (98-107) Carbon Dioxide Level 26 mmol/L (21-32) Anion Gap 8 (6-14) Blood Urea Nitrogen 22 mg/dL (7-20) Creatinine 1.0 mg/dL (0.6-1.0) Estimated GFR (Cockcroft-Gault) 53.2 BUN/Creatinine Ratio 22 (6-20) Glucose Level 118 mg/dL (70-99) Calcium Level 9.1 mg/dL (8.5-10.1) Magnesium Level 2.2 mg/dL (1.8-2.4) Total Bilirubin 3.0 mg/dL (0.2-1.0) Aspartate Amino Transf (AST/SGOT) 164 U/L (15-37) Alanine Aminotransferase (ALT/SGPT) 213 U/L (14-59) Alkaline Phosphatase 279 U/L (46-116) Total Protein 7.2 g/dL (6.4-8.2) Albumin 2.7 g/dL (3.4-5.0) Albumin/Globulin Ratio 0.6 (1.0-1.7) Amylase Level 65 U/L (25-115) Lipase 438 U/L (73-393) Problem List Problems Medical Problems: (1) Acute hepatitis Status: Acute (2) Epigastric pain Status: Acute (3) Generalized pruritus Status: Acute (4) Obstructive jaundice Status: Acute 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 Risks, including, but not limited to: bleeding, infection, damage to surrounding structures, risk of anesthesia, risk of anastomotic leak. She appears to understand, her questions are answered and she elects to proceed. MATT CALLEJAS MD May 06, 2019 10:11
[2019-05-06 11:02] VITALS: BP 109/59
--- NOTE | 2019-05-06 12:04 | PDOC ---
Subjective: Subjective: Just getting out of shower, doing okay. Objective: Objective: Reviewed surgery note - TO OR on 05/08 for common bile duct excision and reconstruction, possible whipple Vital Signs: Vital Signs Date Time Temp Pulse Resp B/P (MAP) Pulse Ox O2 Delivery O2 Flow Rate FiO2 05/06/19 11:02 98.2 64 16 109/59 (76) 96 Room Air 98.2 05/06/19 03:00 5.0 PE: GEN: in restroom w/ door closed A/P: Obstructive jaundice s/p ERCP w/ mid CBD stricture/adenocarcinoma -- Surgery plans as above. CORI PEDERSEN May 06, 2019 12:04
--- NOTE | 2019-05-06 14:44 | NUR ---
SW following pt. Pt is scheduled for Surgery on 05/08. Will continue to follow pending dc needs.
[2019-05-06 15:00] VITALS: BP 137/74
[2019-05-06 19:00] VITALS: BP 114/73
[2019-05-06] MEDS: AMITRIPTYLINE HCL 25 MG TABLET. PO SCH (20:59)
[2019-05-06] MEDS: hydrOXYzine 25 MG TABLET PO PRN (21:03)
[2019-05-06 22:58] VITALS: BP 113/82
[2019-05-07] MEDS: AMINO AC 3%/ELECTROLYTE/GLYCER 1,000 ML IV SCH ×2 (01:32→13:57)
[2019-05-07 03:00] VITALS: BP 108/63
[2019-05-07 07:00] VITALS: BP 120/72
[2019-05-07 07:47] LABS: BASO % 1 % (0-3); EOS # 0.2 x10^3/uL (0.0-0.7); EOS % 4 % (0-3); HEMATOCRIT 35.7 % (36.0-47.0); LYMPH # 1.4 x10^3/uL (1.0-4.8); LYMPH % 26 % (24-48); MEAN CORPUSCULAR HEMOGLOBIN 32 pg (25-35); MEAN CORPUSCULAR HGB CONC 34 g/dL (31-37); MEAN CORPUSCULAR VOLUME 94 fL (79-100); MONO # 0.5 x10^3/uL (0.0-1.1); MONO % 10 % (0-9); NEUT # 3.2 x10^3/uL (1.8-7.7); NEUT % 60 % (31-73); PLATELET COUNT 314 x10^3/uL (140-400); RED BLOOD COUNT 3.81 x10^6/uL (3.50-5.40); RED CELL DISTRIBUTION WIDTH 16.4 % (11.5-14.5); WHITE BLOOD COUNT 5.4 x10^3/uL (4.0-11.0)
[2019-05-07 07:58] LABS: PROTHROMBIN TIME PATIENT 13.4 SEC (11.7-14.0)
[2019-05-07 08:15] LABS: ALBUMIN 2.9 g/dL (3.4-5.0); CALCIUM 9.4 mg/dL (8.5-10.1); DIRECT BILIRUBIN 2.1 mg/dL (0.0-0.2); GFR 53.2; POTASSIUM 4.4 mmol/L (3.5-5.1); TOTAL BILIRUBIN 2.5 mg/dL (0.2-1.0); TOTAL PROTEIN 7.4 g/dL (6.4-8.2)
[2019-05-07] MEDS: GABAPENTIN 300 MG CAPSULE. PO SCH ×3 (09:01→21:07)
[2019-05-07] MEDS: POLYETHYLENE GLYCOL 3350 17 GM PACKET. PO SCH (09:01)
[2019-05-07] MEDS: SERTRALINE 50 MG TABLET. PO SCH (09:01)
[2019-05-07] MEDS: traMADol 50 MG TABLET PO SCH ×4 (09:02→21:07)
--- NOTE | 2019-05-07 10:19 | PDOC ---
PROGRESS NOTES Subjective Subjective lab reviewed. bilirubin down to 2.5. less pruritus. Objective Objective Vital Signs Date Time Temp Pulse Resp B/P (MAP) Pulse Ox O2 Delivery O2 Flow Rate FiO2 05/07/19 07:00 98.1 68 14 120/72 (88) 98 Room Air 98.1 05/07/19 03:00 5.0 Intake and Output 05/07/19 06:59 Intake Total 1720 ml Balance 1720 ml Intake Oral 720 ml IV Total 1000 ml # Voids 3 Physical Exam Abdomen: Soft, Other (mild epigastric tenderness) Heart: Regular rate, Normal S1, Normal S2 Extremities: No edema General: Alert HEENT: Atraumatic Lungs: Clear to auscultation Neuro: Normal speech Psych/Mental Status: Mental status NL Skin: No rashes Assessment Assessment Problemsobstructive jaundice . mid CBD stricture dilated. 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 off atorvastatin fibromyalgia post ERCP acute pancreatitis better hypertension. Medical Problems: (1) Acute hepatitis Status: Acute (2) Epigastric pain Status: Acute (3) Generalized pruritus Status: Acute (4) Obstructive jaundice Status: Acute Plan Plan of Care continue full liquid diet and PPN continue same mes wants tramadol at midnight tonight for fibromyalgia surgery tomorrow npo after midnight Comment Review of Relevant I have reviewed the following items betty (where applicable) has been applied. Labs Laboratory Tests Test 05/07/19 07:30 White Blood Count 5.4 x10^3/uL (4.0-11.0) Red Blood Count 3.81 x10^6/uL (3.50-5.40) Hemoglobin 12.0 g/dL (12.0-15.5) Hematocrit 35.7 % (36.0-47.0) Mean Corpuscular Volume 94 fL (79-100) Mean Corpuscular Hemoglobin 32 pg (25-35) Mean Corpuscular Hemoglobin Concent 34 g/dL (31-37) Red Cell Distribution Width 16.4 % (11.5-14.5) Platelet Count 314 x10^3/uL (140-400) Neutrophils (%) (Auto) 60 % (31-73) Lymphocytes (%) (Auto) 26 % (24-48) Monocytes (%) (Auto) 10 % (0-9) Eosinophils (%) (Auto) 4 % (0-3) Basophils (%) (Auto) 1 % (0-3) Neutrophils # (Auto) 3.2 x10^3/uL (1.8-7.7) Lymphocytes # (Auto) 1.4 x10^3/uL (1.0-4.8) Monocytes # (Auto) 0.5 x10^3/uL (0.0-1.1) Eosinophils # (Auto) 0.2 x10^3/uL (0.0-0.7) Basophils # (Auto) 0.0 x10^3/uL (0.0-0.2) Prothrombin Time 13.4 SEC (11.7-14.0) Prothromb Time International Ratio 1.1 (0.8-1.1) Sodium Level 139 mmol/L (136-145) Potassium Level 4.4 mmol/L (3.5-5.1) Chloride Level 104 mmol/L (98-107) Carbon Dioxide Level 26 mmol/L (21-32) Anion Gap 9 (6-14) Blood Urea Nitrogen 21 mg/dL (7-20) Creatinine 1.0 mg/dL (0.6-1.0) Estimated GFR (Cockcroft-Gault) 53.2 Glucose Level 126 mg/dL (70-99) Calcium Level 9.4 mg/dL (8.5-10.1) Total Bilirubin 2.5 mg/dL (0.2-1.0) Direct Bilirubin 2.1 mg/dL (0.0-0.2) Aspartate Amino Transf (AST/SGOT) 169 U/L (15-37) Alanine Aminotransferase (ALT/SGPT) 238 U/L (14-59) Alkaline Phosphatase 261 U/L (46-116) Total Protein 7.4 g/dL (6.4-8.2) Albumin 2.9 g/dL (3.4-5.0) Amylase Level 72 U/L (25-115) Lipase 416 U/L (73-393) Laboratory Tests Test 05/07/19 07:30 White Blood Count 5.4 x10^3/uL (4.0-11.0) Red Blood Count 3.81 x10^6/uL (3.50-5.40) Hemoglobin 12.0 g/dL (12.0-15.5) Hematocrit 35.7 % (36.0-47.0) Mean Corpuscular Volume 94 fL (79-100) Mean Corpuscular Hemoglobin 32 pg (25-35) Mean Corpuscular Hemoglobin Concent 34 g/dL (31-37) Red Cell Distribution Width 16.4 % (11.5-14.5) Platelet Count 314 x10^3/uL (140-400) Neutrophils (%) (Auto) 60 % (31-73) Lymphocytes (%) (Auto) 26 % (24-48) Monocytes (%) (Auto) 10 % (0-9) Eosinophils (%) (Auto) 4 % (0-3) Basophils (%) (Auto) 1 % (0-3) Neutrophils # (Auto) 3.2 x10^3/uL (1.8-7.7) Lymphocytes # (Auto) 1.4 x10^3/uL (1.0-4.8) Monocytes # (Auto) 0.5 x10^3/uL (0.0-1.1) Eosinophils # (Auto) 0.2 x10^3/uL (0.0-0.7) Basophils # (Auto) 0.0 x10^3/uL (0.0-0.2) Prothrombin Time 13.4 SEC (11.7-14.0) Prothromb Time International Ratio 1.1 (0.8-1.1) Sodium Level 139 mmol/L (136-145) Potassium Level 4.4 mmol/L (3.5-5.1) Chloride Level 104 mmol/L (98-107) Carbon Dioxide Level 26 mmol/L (21-32) Anion Gap 9 (6-14) Blood Urea Nitrogen 21 mg/dL (7-20) Creatinine 1.0 mg/dL (0.6-1.0) Estimated GFR (Cockcroft-Gault) 53.2 Glucose Level 126 mg/dL (70-99) Calcium Level 9.4 mg/dL (8.5-10.1) Total Bilirubin 2.5 mg/dL (0.2-1.0) Direct Bilirubin 2.1 mg/dL (0.0-0.2) Aspartate Amino Transf (AST/SGOT) 169 U/L (15-37) Alanine Aminotransferase (ALT/SGPT) 238 U/L (14-59) Alkaline Phosphatase 261 U/L (46-116) Total Protein 7.4 g/dL (6.4-8.2) Albumin 2.9 g/dL (3.4-5.0) Amylase Level 72 U/L (25-115) Lipase 416 U/L (73-393) Microbiology 04/26/19 Urine Culture - Final, Complete 04/26/19 Urine Culture Result 1 (QUEENIE) - Final, Complete Medications Current Medications Iohexol (Omnipaque 300 Mg/ml) 60 ml 1X ONCE IV Last administered on 04/26/19at 12:06; Start 04/26/19 at 12:30; Stop 04/26/19 at 12:31; Status DC Info (CONTRAST GIVEN -- Rx MONITORING) 1 each PRN DAILY PRN MC SEE COMMENTS; Start 04/26/19 at 12:00; Stop 04/28/19 at 11:59; Status DC Ondansetron HCl (Zofran) 4 mg PRN Q6HRS PRN IV NAUSEA/VOMITING Last administered on 04/29/19at 01:04; Start 04/26/19 at 12:30; Stop 04/29/19 at 04:56; Status DC Cholestyramine Resin (Questran Light) 4 gm BID@1000,2200 PO Last administered on 05/06/19at 21:03; Start 04/26/19 at 22:00 Hydroxyzine HCl (Atarax) 25 mg PRN Q6HRS PRN PO ITCHING Last administered on 05/06/19at 21:03; Start 04/26/19 at 12:30 Morphine Sulfate (Morphine Sulfate) 2 mg PRN Q6HRS PRN IV SEVERE PAIN 7-10; Start 04/26/19 at 12:30; Stop 04/26/19 at 12:42; Status DC Acetaminophen/ Hydrocodone Bitart (Lortab 5/325) 1 tab PRN Q6HRS PRN PO MILD PAIN / TEMP; Start 04/26/19 at 12:30; Stop 04/26/19 at 12:42; Status DC Gabapentin (Neurontin) 300 mg TID PO Last administered on 05/07/19at 09:02; Start 04/26/19 at 14:00 Lorazepam (Ativan) 0.5 mg PRN BID PRN PO AGITATION; Start 04/26/19 at 12:30 Sertraline HCl (Zoloft) 50 mg DAILY PO Last administered on 05/07/19 09:02; Start 04/27/19 at 09:00 Tramadol HCl (Ultram) 50 mg TID PO Last administered on 04/29/19 09:09; Start 04/26/19 at 14:00; Stop 04/29/19 at 10:09; Status DC Acetaminophen (Tylenol) 325 mg PRN Q6HRS PRN PO MILD PAIN / TEMP; Start 04/26/19 at 12:30 Polyethylene Glycol (miraLAX PACKET) 17 gm DAILY PO Last administered on 05/07/19 09:02; Start 04/27/19 at 09:00 Magnesium Hydroxide (Milk Of Magnesia) 2,400 mg PRN DAILY PRN PO CONSTIPATION Last administered on 04/29/19 02:34; Start 04/26/19 at 12:30 Acetaminophen/ Hydrocodone Bitart (Lortab 5/325) 1 tab PRN Q4HRS PRN PO MODERATE PAIN Last administered on 05/05/19 08:41; Start 04/26/19 at 12:45 Morphine Sulfate (Morphine Sulfate) 1 mg PRN Q4HRS PRN IV SEVERE PAIN 7-10 Last administered on 04/29/19 01:11; Start 04/26/19 at 12:45; Stop 04/29/19 at 04:56; Status DC Levofloxacin/ Dextrose 100 ml @ 100 mls/hr 1X ONCE IV Last administered on 04/28/19 08:31; Start 04/28/19 at 07:15; Stop 04/28/19 at 08:14; Status DC Ringer's Solution 1,000 ml @ 75 mls/hr 1X ONCE IV Last administered on 04/28/19at 14:43; Start 04/28/19 at 12:15; Stop 04/29/19 at 01:34; Status DC Iohexol (Omnipaque 300 Mg/ml) 100 ml STK-MED ONCE .ROUTE ; Start 04/28/19 at 13:24; Stop 04/28/19 at 13:25; Status DC Famotidine (Pepcid Vial) 20 mg STK-MED ONCE .ROUTE ; Start 04/28/19 at 14:12; Stop 04/28/19 at 14:13; Status DC Dexamethasone Sodium Phosphate (Decadron) 20 mg STK-MED ONCE .ROUTE ; Start 04/28/19 at 14:13; Stop 04/28/19 at 14:14; Status DC Lidocaine HCl (Lidocaine Pf 2% Vial) 5 ml STK-MED ONCE .ROUTE ; Start 04/28/19 at 15:00; Stop 04/28/19 at 15:01; Status DC Iohexol (Omnipaque 300 Mg/ml) 100 ml STK-MED ONCE IV Last administered on 04/28/19at 16:20; Start 04/28/19 at 16:20; Stop 04/28/19 at 16:48; Status DC Fentanyl Citrate (Fentanyl 2ml Vial) 25 mcg 1X ONCE IV Last administered on 04/28/19at 17:05; Start 04/28/19 at 17:00; Stop 04/28/19 at 17:01; Status DC Morphine Sulfate (Morphine Sulfate) 2 mg PRN Q4HRS PRN IV SEVERE PAIN 7-10; Start 04/29/19 at 05:00 Ondansetron HCl (Zofran) 8 mg PRN Q6HRS PRN IV NAUSEA/VOMITING, 1ST CHOICE Last administered on 05/03/19at 22:23; Start 04/29/19 at 05:00 Prochlorperazine Maleate (Compazine) 10 mg PRN Q6HRS PRN PO NAUSEA/VOMITING; Start 04/29/19 at 05:00 Tramadol HCl (Ultram) 50 mg QID PO Last administered on 05/07/19at 09:02; Start 04/29/19 at 13:00 Potassium Chloride/Dextrose/ Sod Cl 1,000 ml @ 75 mls/hr [id number] IV Last administered on 04/30/19at 02:53; Start 04/29/19 at 10:15; Stop 04/30/19 at 10:45; Status DC Amitriptyline HCl (Elavil) 25 mg QHS PO Last administered on 05/06/19at 21:03; Start 04/29/19 at 21:00 Phenylephrine HCl (PHENYLEPHRINE in 0.9% NACL PF) 1 mg STK-MED ONCE IV ; Start 04/28/19 at 14:00; Stop 04/29/19 at 13:10; Status DC Succinylcholine Chloride (Anectine) 200 mg STK-MED ONCE .ROUTE ; Start 04/28/19 at 14:00; Stop 04/29/19 at 13:10; Status DC Propofol (Diprivan) 200 mg STK-MED ONCE IV ; Start 04/28/19 at 14:00; Stop 04/29/19 at 13:10; Status DC Amino Acids/ Glycerin/ Electrolytes 1,000 ml @ 80 mls/hr [id number] IV Last administered on 05/07/19at 01:32; Start 04/30/19 at 10:45 Amlodipine Besylate (Norvasc) 5 mg DAILY PO Last administered on 05/05/19at 08:41; Start 05/01/19 at 13:00; Stop 05/05/19 at 10:06; Status DC Hydralazine HCl (Apresoline Inj) 10 mg PRN Q4HRS PRN IVP ELEVATED BP, SEE COMMENTS; Start 05/01/19 at 12:45 Amlodipine Besylate (Norvasc) 2.5 mg DAILY PO Last administered on 05/06/19at 09:28; Start 05/05/19 at 10:30; Stop 05/06/19 at 10:03; Status DC Active Scripts Active Zoloft (Sertraline Hcl) 50 Mg Tablet 50 Mg PO DAILY [Polyethylene Glycol 3350] 17 GM Packet 17 Gm PO DAILY [Oxycodone Hcl/Acetaminophen] 1 TAB Tablet 1 Tab PO PRN Q4HRS PRN Neurontin (Gabapentin) 300 Mg Capsule 300 Mg PO TID [Amoxicillin/Potassium Clav] 1 TAB Tablet 1 Tab PO BID [Amitriptyline Hcl] 50 MG Tablet 50 Mg PO QHS Lipitor (Atorvastatin Calcium) 10 Mg Tablet 10 Mg PO QHS Vitals/I & O Vital Sign - Last 24 Hours 05/06/19 05/06/19 05/06/19 05/06/19 11:02 14:47 14:56 15:00 Temp 98.2 97.5 98.2 97.5 Pulse 64 84 Resp 16 20 20 16 B/P (MAP) 109/59 (76) 137/74 (95) Pulse Ox 96 94 94 97 O2 Delivery Room Air Room Air Room Air Room Air 05/06/19 05/06/19 05/06/19 05/06/19 17:23 17:54 19:00 20:20 Temp 97.9 97.9 Pulse 78 Resp 19 20 18 B/P (MAP) 114/73 (87) Pulse Ox 95 94 100 O2 Delivery Room Air Room Air Room Air Room Air O2 Flow Rate 5.0 05/06/19 05/06/19 05/06/19 05/07/19 21:03 21:06 22:58 01:57 Temp 98.1 98.1 Pulse 79 Resp 20 20 18 18 B/P (MAP) 113/82 (92) Pulse Ox 97 O2 Delivery Room Air Room Air Room Air Room Air O2 Flow Rate 5.0 05/07/19 05/07/19 03:00 07:00 Temp 98.2 98.1 98.2 98.1 Pulse 64 68 Resp 18 14 B/P (MAP) 108/63 (78) 120/72 (88) Pulse Ox 95 98 O2 Delivery Room Air Room Air O2 Flow Rate 5.0 Intake and Output 05/06/19 05/06/19 05/07/19 14:59 22:59 06:59 Intake Total 480 ml 240 ml 1000 ml Balance 480 ml 240 ml 1000 ml [email or web address] MD May 07, 2019 10:19
[2019-05-07] MEDS: CHOLESTYRAMINE/ASPARTAME 4 GM PACKET PO SCH ×2 (10:23→22:00)
--- NOTE | 2019-05-07 10:36 | PDOC ---
G I PROGRESS NOTE Subjective No complaints. Understandably anxious re: surgery. Physical Exam Lungs clear. RRR Abdomen soft, not tender nor distended. Review of Relevant I have reviewed the following items betty (where applicable) has been applied. Labs Laboratory Tests Test 05/07/19 07:30 White Blood Count 5.4 x10^3/uL (4.0-11.0) Red Blood Count 3.81 x10^6/uL (3.50-5.40) Hemoglobin 12.0 g/dL (12.0-15.5) Hematocrit 35.7 % (36.0-47.0) Mean Corpuscular Volume 94 fL (79-100) Mean Corpuscular Hemoglobin 32 pg (25-35) Mean Corpuscular Hemoglobin Concent 34 g/dL (31-37) Red Cell Distribution Width 16.4 % (11.5-14.5) Platelet Count 314 x10^3/uL (140-400) Neutrophils (%) (Auto) 60 % (31-73) Lymphocytes (%) (Auto) 26 % (24-48) Monocytes (%) (Auto) 10 % (0-9) Eosinophils (%) (Auto) 4 % (0-3) Basophils (%) (Auto) 1 % (0-3) Neutrophils # (Auto) 3.2 x10^3/uL (1.8-7.7) Lymphocytes # (Auto) 1.4 x10^3/uL (1.0-4.8) Monocytes # (Auto) 0.5 x10^3/uL (0.0-1.1) Eosinophils # (Auto) 0.2 x10^3/uL (0.0-0.7) Basophils # (Auto) 0.0 x10^3/uL (0.0-0.2) Prothrombin Time 13.4 SEC (11.7-14.0) Prothromb Time International Ratio 1.1 (0.8-1.1) Sodium Level 139 mmol/L (136-145) Potassium Level 4.4 mmol/L (3.5-5.1) Chloride Level 104 mmol/L (98-107) Carbon Dioxide Level 26 mmol/L (21-32) Anion Gap 9 (6-14) Blood Urea Nitrogen 21 mg/dL (7-20) Creatinine 1.0 mg/dL (0.6-1.0) Estimated GFR (Cockcroft-Gault) 53.2 Glucose Level 126 mg/dL (70-99) Calcium Level 9.4 mg/dL (8.5-10.1) Total Bilirubin 2.5 mg/dL (0.2-1.0) Direct Bilirubin 2.1 mg/dL (0.0-0.2) Aspartate Amino Transf (AST/SGOT) 169 U/L (15-37) Alanine Aminotransferase (ALT/SGPT) 238 U/L (14-59) Alkaline Phosphatase 261 U/L (46-116) Total Protein 7.4 g/dL (6.4-8.2) Albumin 2.9 g/dL (3.4-5.0) Amylase Level 72 U/L (25-115) Lipase 416 U/L (73-393) Laboratory Tests Test 05/07/19 07:30 White Blood Count 5.4 x10^3/uL (4.0-11.0) Red Blood Count 3.81 x10^6/uL (3.50-5.40) Hemoglobin 12.0 g/dL (12.0-15.5) Hematocrit 35.7 % (36.0-47.0) Mean Corpuscular Volume 94 fL (79-100) Mean Corpuscular Hemoglobin 32 pg (25-35) Mean Corpuscular Hemoglobin Concent 34 g/dL (31-37) Red Cell Distribution Width 16.4 % (11.5-14.5) Platelet Count 314 x10^3/uL (140-400) Neutrophils (%) (Auto) 60 % (31-73) Lymphocytes (%) (Auto) 26 % (24-48) Monocytes (%) (Auto) 10 % (0-9) Eosinophils (%) (Auto) 4 % (0-3) Basophils (%) (Auto) 1 % (0-3) Neutrophils # (Auto) 3.2 x10^3/uL (1.8-7.7) Lymphocytes # (Auto) 1.4 x10^3/uL (1.0-4.8) Monocytes # (Auto) 0.5 x10^3/uL (0.0-1.1) Eosinophils # (Auto) 0.2 x10^3/uL (0.0-0.7) Basophils # (Auto) 0.0 x10^3/uL (0.0-0.2) Prothrombin Time 13.4 SEC (11.7-14.0) Prothromb Time International Ratio 1.1 (0.8-1.1) Sodium Level 139 mmol/L (136-145) Potassium Level 4.4 mmol/L (3.5-5.1) Chloride Level 104 mmol/L (98-107) Carbon Dioxide Level 26 mmol/L (21-32) Anion Gap 9 (6-14) Blood Urea Nitrogen 21 mg/dL (7-20) Creatinine 1.0 mg/dL (0.6-1.0) Estimated GFR (Cockcroft-Gault) 53.2 Glucose Level 126 mg/dL (70-99) Calcium Level 9.4 mg/dL (8.5-10.1) Total Bilirubin 2.5 mg/dL (0.2-1.0) Direct Bilirubin 2.1 mg/dL (0.0-0.2) Aspartate Amino Transf (AST/SGOT) 169 U/L (15-37) Alanine Aminotransferase (ALT/SGPT) 238 U/L (14-59) Alkaline Phosphatase 261 U/L (46-116) Total Protein 7.4 g/dL (6.4-8.2) Albumin 2.9 g/dL (3.4-5.0) Amylase Level 72 U/L (25-115) Lipase 416 U/L (73-393) Microbiology 04/26/19 Urine Culture - Final, Complete 04/26/19 Urine Culture Result 1 (QUEENIE) - Final, Complete LFT's continue to improve. Lipase stable. Vitals/I & O Vital Sign - Last 24 Hours 05/06/19 05/06/19 05/06/19 05/06/19 11:02 14:47 14:56 15:00 Temp 98.2 97.5 98.2 97.5 Pulse 64 84 Resp 16 20 20 16 B/P (MAP) 109/59 (76) 137/74 (95) Pulse Ox 96 94 94 97 O2 Delivery Room Air Room Air Room Air Room Air 05/06/19 05/06/19 05/06/19 05/06/19 17:23 17:54 19:00 20:20 Temp 97.9 97.9 Pulse 78 Resp 19 20 18 B/P (MAP) 114/73 (87) Pulse Ox 95 94 100 O2 Delivery Room Air Room Air Room Air Room Air O2 Flow Rate 5.0 05/06/19 05/06/19 05/06/19 05/07/19 21:03 21:06 22:58 01:57 Temp 98.1 98.1 Pulse 79 Resp 20 20 18 18 B/P (MAP) 113/82 (92) Pulse Ox 97 O2 Delivery Room Air Room Air Room Air Room Air O2 Flow Rate 5.0 05/07/19 05/07/19 03:00 07:00 Temp 98.2 98.1 98.2 98.1 Pulse 64 68 Resp 18 14 B/P (MAP) 108/63 (78) 120/72 (88) Pulse Ox 95 98 O2 Delivery Room Air Room Air O2 Flow Rate 5.0 Intake and Output 05/06/19 05/06/19 05/07/19 14:59 22:59 06:59 Intake Total 480 ml 240 ml 1000 ml Balance 480 ml 240 ml 1000 ml Problem List Problems Medical Problems: (1) Acute hepatitis Status: Acute (2) Epigastric pain Status: Acute (3) Generalized pruritus Status: Acute (4) Obstructive jaundice Status: Acute Assessment CholangioCa. Plan of Care: Continue current Tx, Mgmt Plan of Care Note Await operation. SRINIVASA OTERO MD May 07, 2019 10:36
[2019-05-07 11:00] VITALS: BP 120/72
--- NOTE | 2019-05-07 15:07 | PDOC ---
SURGICAL PROGRESS NOTE Subjective Pt without c/o, except back and leg pain related to fibromyalgia Vital Signs Vital Signs Date Time Temp Pulse Resp B/P (MAP) Pulse Ox O2 Delivery O2 Flow Rate FiO2 05/07/19 11:00 98.1 81 16 120/72 (88) 98 Room Air 98.1 05/07/19 03:00 5.0 I&O Intake and Output 05/07/19 07:00 Intake Total 1720 ml Balance 1720 ml Intake Oral 720 ml IV Total 1000 ml # Voids 3 General: Alert, Oriented X3, Cooperative, No acute distress Abdomen: Soft, No tenderness Labs Laboratory Tests Test 05/07/19 07:30 White Blood Count 5.4 x10^3/uL (4.0-11.0) Red Blood Count 3.81 x10^6/uL (3.50-5.40) Hemoglobin 12.0 g/dL (12.0-15.5) Hematocrit 35.7 % (36.0-47.0) Mean Corpuscular Volume 94 fL (79-100) Mean Corpuscular Hemoglobin 32 pg (25-35) Mean Corpuscular Hemoglobin Concent 34 g/dL (31-37) Red Cell Distribution Width 16.4 % (11.5-14.5) Platelet Count 314 x10^3/uL (140-400) Neutrophils (%) (Auto) 60 % (31-73) Lymphocytes (%) (Auto) 26 % (24-48) Monocytes (%) (Auto) 10 % (0-9) Eosinophils (%) (Auto) 4 % (0-3) Basophils (%) (Auto) 1 % (0-3) Neutrophils # (Auto) 3.2 x10^3/uL (1.8-7.7) Lymphocytes # (Auto) 1.4 x10^3/uL (1.0-4.8) Monocytes # (Auto) 0.5 x10^3/uL (0.0-1.1) Eosinophils # (Auto) 0.2 x10^3/uL (0.0-0.7) Basophils # (Auto) 0.0 x10^3/uL (0.0-0.2) Prothrombin Time 13.4 SEC (11.7-14.0) Prothromb Time International Ratio 1.1 (0.8-1.1) Sodium Level 139 mmol/L (136-145) Potassium Level 4.4 mmol/L (3.5-5.1) Chloride Level 104 mmol/L (98-107) Carbon Dioxide Level 26 mmol/L (21-32) Anion Gap 9 (6-14) Blood Urea Nitrogen 21 mg/dL (7-20) Creatinine 1.0 mg/dL (0.6-1.0) Estimated GFR (Cockcroft-Gault) 53.2 Glucose Level 126 mg/dL (70-99) Calcium Level 9.4 mg/dL (8.5-10.1) Total Bilirubin 2.5 mg/dL (0.2-1.0) Direct Bilirubin 2.1 mg/dL (0.0-0.2) Aspartate Amino Transf (AST/SGOT) 169 U/L (15-37) Alanine Aminotransferase (ALT/SGPT) 238 U/L (14-59) Alkaline Phosphatase 261 U/L (46-116) Total Protein 7.4 g/dL (6.4-8.2) Albumin 2.9 g/dL (3.4-5.0) Amylase Level 72 U/L (25-115) Lipase 416 U/L (73-393) Laboratory Tests Test 05/07/19 07:30 White Blood Count 5.4 x10^3/uL (4.0-11.0) Red Blood Count 3.81 x10^6/uL (3.50-5.40) Hemoglobin 12.0 g/dL (12.0-15.5) Hematocrit 35.7 % (36.0-47.0) Mean Corpuscular Volume 94 fL (79-100) Mean Corpuscular Hemoglobin 32 pg (25-35) Mean Corpuscular Hemoglobin Concent 34 g/dL (31-37) Red Cell Distribution Width 16.4 % (11.5-14.5) Platelet Count 314 x10^3/uL (140-400) Neutrophils (%) (Auto) 60 % (31-73) Lymphocytes (%) (Auto) 26 % (24-48) Monocytes (%) (Auto) 10 % (0-9) Eosinophils (%) (Auto) 4 % (0-3) Basophils (%) (Auto) 1 % (0-3) Neutrophils # (Auto) 3.2 x10^3/uL (1.8-7.7) Lymphocytes # (Auto) 1.4 x10^3/uL (1.0-4.8) Monocytes # (Auto) 0.5 x10^3/uL (0.0-1.1) Eosinophils # (Auto) 0.2 x10^3/uL (0.0-0.7) Basophils # (Auto) 0.0 x10^3/uL (0.0-0.2) Prothrombin Time 13.4 SEC (11.7-14.0) Prothromb Time International Ratio 1.1 (0.8-1.1) Sodium Level 139 mmol/L (136-145) Potassium Level 4.4 mmol/L (3.5-5.1) Chloride Level 104 mmol/L (98-107) Carbon Dioxide Level 26 mmol/L (21-32) Anion Gap 9 (6-14) Blood Urea Nitrogen 21 mg/dL (7-20) Creatinine 1.0 mg/dL (0.6-1.0) Estimated GFR (Cockcroft-Gault) 53.2 Glucose Level 126 mg/dL (70-99) Calcium Level 9.4 mg/dL (8.5-10.1) Total Bilirubin 2.5 mg/dL (0.2-1.0) Direct Bilirubin 2.1 mg/dL (0.0-0.2) Aspartate Amino Transf (AST/SGOT) 169 U/L (15-37) Alanine Aminotransferase (ALT/SGPT) 238 U/L (14-59) Alkaline Phosphatase 261 U/L (46-116) Total Protein 7.4 g/dL (6.4-8.2) Albumin 2.9 g/dL (3.4-5.0) Amylase Level 72 U/L (25-115) Lipase 416 U/L (73-393) Problem List Problems Medical Problems: (1) Acute hepatitis Status: Acute (2) Epigastric pain Status: Acute (3) Generalized pruritus Status: Acute (4) Obstructive jaundice Status: Acute Assessment/Plan cholangiocarcinoma TO OR in AM for common bile duct excision with reconstruction versus whipple R/R/B/A d/w pt and pt's supportive family. MATT CALLEJAS MD May 07, 2019 15:06
[2019-05-07 15:36] VITALS: BP 135/77
--- NOTE | 2019-05-07 16:47 | NUR ---
orders from Dr. Perez for pt to get her a.m. dose of tramadol at [facility] before being made NPO.
[2019-05-07 19:00] VITALS: BP 130/81
[2019-05-07] MEDS: AMITRIPTYLINE HCL 25 MG TABLET. PO SCH (21:07)
[2019-05-07 22:35] VITALS: BP 137/82
[2019-05-08] VITALS (16 sets, daily range): BP systolic 71–112; BP diastolic 44–63
--- NOTE | 2019-05-08 | NUR ---
Per Dr Perez's free text order, patient's 0900 tramadol given at this time.
[2019-05-08] MEDS: traMADol 50 MG TABLET PO SCH ×4 (00:11→21:00)
[2019-05-08] MEDS: AMINO AC 3%/ELECTROLYTE/GLYCER 1,000 ML IV SCH ×3 (01:01→18:45)
[2019-05-08] MEDS ORDERED: MORPHINE SULFATE 2 MG/ML VIAL. IV PRN (07:00)
[2019-05-08] MEDS ORDERED: ONDANSETRON PF 4 MG/2 ML VIAL. IV PRN (07:00)
[2019-05-08] MEDS ORDERED: IV RINGERS,LACTATED 1000ML 1,000 ML IV SCH (07:00)
[2019-05-08] MEDS ORDERED: fentaNYL PF VIAL 100 MCG/2 ML VIAL IV PRN (07:00)
[2019-05-08] MEDS ORDERED: PROCHLORPERAZINE 10 MG/2 ML VIAL. IV PRN (07:00)
[2019-05-08] MEDS ORDERED: HYDROmorphone 2 MG/ML VIAL IV PRN (07:00)
[2019-05-08] MEDS ORDERED: fentaNYL PF VIAL 100 MCG/2 ML VIAL ONE ×3 (07:06→14:29)
[2019-05-08] MEDS ORDERED: GLYCOPYRROLATE 1 MG/5 ML VIAL. ONE (07:07)
[2019-05-08] MEDS ORDERED: NEOSTIGMINE METHYLSULFATE 5 MG/5 ML SYRINGE. ONE (07:08)
[2019-05-08] MEDS ORDERED: ROCURONIUM 100 MG/10 ML VIAL. ONE (07:08)
[2019-05-08] MEDS ORDERED: DEXAMETHASONE SOD PHOS 4 MG/ML VIAL ONE (07:09)
[2019-05-08] MEDS ORDERED: LIDOCAINE 2% PF 5 ML VIAL. ONE (07:09)
[2019-05-08] MEDS ORDERED: PROPOFOL 20 ML IV ONE (07:09)
[2019-05-08] MEDS ORDERED: ONDANSETRON PF 4 MG/2 ML VIAL. ONE (07:09)
[2019-05-08] MEDS ORDERED: PHENYLEPHRINE 10 MG/ML VIAL. ONE (07:12)
--- NOTE | 2019-05-08 07:54 | PDOC ---
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 Brushings concerning for malignancy. TO OR for common bile duct excision with reconstruction vs whipple procedure. R/R/B/A d/w pt and pt's supportive family. Risks, including, but not limited to: bleeding, infection, damage to surrounding structures, risk of anesthesia, risk of . They appear to understand, their questions are answered and they elect to proceed. Vital Signs Vital Signs Date Time Temp Pulse Resp B/P (MAP) Pulse Ox O2 Delivery O2 Flow Rate FiO2 05/08/19 07:24 97.8 87 15 144/82 94 Room Air 97.8 I&O Intake and Output 05/08/19 07:00 Intake Total 2610 ml Output Total 2 ml Balance 2608 ml Intake Oral 660 ml IV Total 1950 ml Output Urine Total 2 ml # Voids 4 Labs Laboratory Tests Test 05/07/19 07:30 White Blood Count 5.4 x10^3/uL (4.0-11.0) Red Blood Count 3.81 x10^6/uL (3.50-5.40) Hemoglobin 12.0 g/dL (12.0-15.5) Hematocrit 35.7 % (36.0-47.0) Mean Corpuscular Volume 94 fL (79-100) Mean Corpuscular Hemoglobin 32 pg (25-35) Mean Corpuscular Hemoglobin Concent 34 g/dL (31-37) Red Cell Distribution Width 16.4 % (11.5-14.5) Platelet Count 314 x10^3/uL (140-400) Neutrophils (%) (Auto) 60 % (31-73) Lymphocytes (%) (Auto) 26 % (24-48) Monocytes (%) (Auto) 10 % (0-9) Eosinophils (%) (Auto) 4 % (0-3) Basophils (%) (Auto) 1 % (0-3) Neutrophils # (Auto) 3.2 x10^3/uL (1.8-7.7) Lymphocytes # (Auto) 1.4 x10^3/uL (1.0-4.8) Monocytes # (Auto) 0.5 x10^3/uL (0.0-1.1) Eosinophils # (Auto) 0.2 x10^3/uL (0.0-0.7) Basophils # (Auto) 0.0 x10^3/uL (0.0-0.2) Prothrombin Time 13.4 SEC (11.7-14.0) Prothromb Time International Ratio 1.1 (0.8-1.1) Sodium Level 139 mmol/L (136-145) Potassium Level 4.4 mmol/L (3.5-5.1) Chloride Level 104 mmol/L (98-107) Carbon Dioxide Level 26 mmol/L (21-32) Anion Gap 9 (6-14) Blood Urea Nitrogen 21 mg/dL (7-20) Creatinine 1.0 mg/dL (0.6-1.0) Estimated GFR (Cockcroft-Gault) 53.2 Glucose Level 126 mg/dL (70-99) Calcium Level 9.4 mg/dL (8.5-10.1) Total Bilirubin 2.5 mg/dL (0.2-1.0) Direct Bilirubin 2.1 mg/dL (0.0-0.2) Aspartate Amino Transf (AST/SGOT) 169 U/L (15-37) Alanine Aminotransferase (ALT/SGPT) 238 U/L (14-59) Alkaline Phosphatase 261 U/L (46-116) Total Protein 7.4 g/dL (6.4-8.2) Albumin 2.9 g/dL (3.4-5.0) Amylase Level 72 U/L (25-115) Lipase 416 U/L (73-393) Problem List Problems Medical Problems: (1) Acute hepatitis Status: Acute (2) Epigastric pain Status: Acute (3) Generalized pruritus Status: Acute (4) Obstructive jaundice Status: Acute MATT CALLEJAS MD May 08, 2019 07:54
[2019-05-08] MEDS ORDERED: cefOXitin SODIUM IV Push 2 GM VIAL. IVP SCH ×2 (08:00→10:15)
[2019-05-08] MEDS ORDERED: ePHEDrine PF IN SALINE 50 MG/10 ML SYRINGE. IV ONE (08:37)
--- NOTE | 2019-05-08 08:58 | PDOC ---
Provider Note Provider Note Covering for Dr Perez. Pt went for surgery this morning. TO OR for common bile duct excision with reconstruction vs Whipple procedure. spoke with RN. labs reviewed. BONNY BEST MD May 08, 2019 08:58
[2019-05-08] MEDS: GABAPENTIN 300 MG CAPSULE. PO SCH ×3 (09:00→21:00)
[2019-05-08] MEDS: SERTRALINE 50 MG TABLET. PO SCH (09:00)
[2019-05-08] MEDS: POLYETHYLENE GLYCOL 3350 17 GM PACKET. PO SCH (09:00)
[2019-05-08] MEDS: CHOLESTYRAMINE/ASPARTAME 4 GM PACKET PO SCH ×2 (10:00→21:31)
--- NOTE | 2019-05-08 11:02 | PDOC ---
Objective: Vital Signs: Vital Signs Date Time Temp Pulse Resp B/P (MAP) Pulse Ox O2 Delivery O2 Flow Rate FiO2 05/08/19 07:24 97.8 87 15 144/82 94 Room Air 97.8 PE: not in room A/P: Obstructive jaundice s/p ERCP w/ mid CBD stricture/adenocarcinoma -- Out for surgery, will follow. CORI PEDERSEN May 08, 2019 11:02
[2019-05-08] MEDS ORDERED: cefOXitin SODIUM IV Push 2 GM VIAL. IVP ONE (12:30)
--- NOTE | 2019-05-08 13:18 | NUR ---
Report given to Farrah in ICU at 1315.
[2019-05-08] MEDS ORDERED: cefOXitin SODIUM IV Push 1 GM VIAL. IVP ONE (13:51)
[2019-05-08] MEDS: IV NORMAL SALINE 1000ML BAG 1,000 ML IV SCH (14:18)
[2019-05-08] MEDS ORDERED: NALOXONE 0.4 MG/ML VIAL. IV PRN (14:30)
[2019-05-08] MEDS ORDERED: 0.9 % SODIUM CHLORIDE 10 ML DISP.SYRIN. IV PRN (14:30)
[2019-05-08] MEDS: HEPARIN for SUB-Q USE 5,000 UNIT/ML VIAL. SQ SCH ×2 (14:30→23:28)
[2019-05-08] MEDS ORDERED: SEVOFLURANE > 120 MINUTES. IH ONE (14:44)
--- NOTE | 2019-05-08 14:50 | PDOC4 ---
OPERATIVE NOTE Date: Date: May 08, 2019 Pre-Op Diagnosis: Common bile duct obstruction, suspect cholangiocarcinoma Post-Op Diagnosis: same, favor pancreatic cancer Procedure Performed: whipple procedure (specifically: pyloric sparing, pancreaticogastrostomy), G-tube placement Surgeon: Monroe Callejas Asst: Dr. Checo Dave Anesthesia Type: GETA Blood Loss: 750 Specimans Obtained: multiple specimens, common bile duct, whipple Findings: Common bile duct obstruction secondary to pancreatic head mass, no obvious metastatic disease Complications: none Operative Note: After obtaining informed consent, patient was taken to OR, induced under GETA and prepped in the usual fashion. Cautery used to make midline incision. Abdominal cavity was explored and no obvious metastatic disease noted in liver or peritoneal cavity. Distal small bowel with small area of induration of mesentery, but no nodule or compromise of associated bowel. Appendix surgically absent. Duodenum fully kocherized. Common bile duct carefully dissected out and some difficulty given previous cholecystectomy. Right hepatic artery came behind common bile duct proximally. Gastroduodenal artery ligated with clips and 0 vicryl stick tie. Distal common bile duct with mass with extension to the right and posterior to portal vein, but was able to be resected off of this. Common bile duct divided proximal to area of concern. Divided distal to area of stricture, but appeared to be extending into pancreatic tissue. This was sent to pathology. Pathology demonstrated a small pancreatic cancer with invasion of bile duct, causing stricture. Given this finding, a formal whipple procedure is recommended. Duodenum divided distal to pylorus using TRENA. Proximal jejunum divided distal t o duodenal diverticulum with TRENA. 3 0 vicryl used to control vessels at superior and inferior border of pancreas at the neck. The neck was then divided using cautery. It was noted to be a soft gland, with a small duct (1 mm or less). Pancreas taken off portal vein using careful dissection. Whipple sent to pathology for evaluation. Copious irrigation. No evidence of bleeding or other pathology. Tail of pancreas brought into posterior aspect of stomach and invaginated with multiple 3 0 vicryl. Tisseal placed around this anastomosis. An anterior gastrostomy tube was placed and brought out through LUQ and secured with 3 0 vicryl pursestring and tacked to abdominal wall using 3 0 vicryl. Pediatric feeding tube left as stent in pancreatic duct and brought out via the gastrostomy tube. Gastrostomy tube secured with 2 0 nylon. Proximal jejunum brought around ligament of treitz in a retrocolic position to create neoduodenum. Hepatico jejunostomy created in and end to side fashion with multiple 4 0 PDS. Anastomosis noted to be patent, viable and without tension. Duodenal jejunostomy then created with outside 3 0 vicryl and inside 3 0 PDS in and end to end sutured anastomosis. Anastomosis noted to be patent, under no tension and completely viable, without evidence of leakage. 19 MIRIAM drains placed bilateral upper quadrant and secured with 2 0 nylon. Fascia closed with 0 looped PDS. Skin repaired with 3 0 vicryl and 4 0 monocryl with gerald left in wound and secured with 2 0 nylon. Dressing placed. Patient tolerated procedure well and sent to ICU in stable condition. All counts correct. Wound class is 3. MATT CALLEJAS MD May 08, 2019 14:50
[2019-05-08] MEDS: HYDROMORPHONE EPID PRN ×3 (15:07→21:33)
[2019-05-08] MEDS: [UNRECOGNIZED DRUG - OTHER] EPID PRN ×3 (15:07→21:33)
[2019-05-08] MEDS: ROPIVACAINE 0.5% EPID PRN ×3 (15:07→21:33)
[2019-05-08] MEDS: NORMAL SALINE EPID PRN ×3 (15:07→21:33)
[2019-05-08] MEDS: fentaNYL PF VIAL 100 MCG/2 ML VIAL IV PRN ×2 (15:24→15:36)
[2019-05-08] MEDS: IV RINGERS,LACTATED 1000ML 1,000 ML IV SCH ×2 (16:50→19:22)
--- NOTE | 2019-05-08 17:08 | RAD ---
KUB Clinical indications: Postoperative KUB. Post laparotomy. Findings: Surgical drainage catheters are present. NG tube is in place and tip is seen within the distal body of the stomach. No obstructive bowel pattern or functional ileus is evident. IMPRESSION: No obstructive bowel pattern or functional ileus is evident. Electronically signed by: Francisco Ching MD (05/08/2019 5:05 PM) [id number]
[2019-05-08] MEDS ORDERED: IV RINGERS,LACTATED 500ML 500 ML IV ONE (18:45)
[2019-05-08] MEDS: NOREPINEPHRIN 8MG/250ML PREMIX 250 ML IV PRN (19:37)
[2019-05-08] MEDS: AMITRIPTYLINE HCL 25 MG TABLET. PO SCH (21:00)
[2019-05-08] MEDS: FAMOTIDINE 20 MG/2 ML VIAL IVP SCH (21:32)
[2019-05-09] VITALS (40 sets, daily range): BP systolic 81–130; BP diastolic 47–77
[2019-05-09] MEDS: IV RINGERS,LACTATED 1000ML 1,000 ML IV SCH ×3 (00:42→18:50)
--- NOTE | 2019-05-09 03:18 | NUR ---
The insurance underwriter noted decreased urine output over the past few hours. Call placed to Dr. Perez. The RN spoke with Dr. Perez's on-call MD, Dr. Gibbs. The RN updated MD on pt status, history. Received order to give LR 500 mL bolus, CBC, CMP STAT. Will continue to monitor.
[2019-05-09] MEDS ORDERED: IV RINGERS,LACTATED 500ML 500 ML IV ONE ×2 (03:30→08:15)
[2019-05-09] MEDS: NOREPINEPHRIN 8MG/250ML PREMIX 250 ML IV PRN ×2 (03:39→23:49)
[2019-05-09 03:40] LABS: BASO # 0.1 x10^3/uL (0.0-0.2); BASO % 1 % (0-3); EOS % 0 % (0-3); HEMATOCRIT 31.3 % (36.0-47.0); HEMOGLOBIN 10.3 g/dL (12.0-15.5); LYMPH # 1.8 x10^3/uL (1.0-4.8); LYMPH % 15 % (24-48); MEAN CORPUSCULAR HEMOGLOBIN 31 pg (25-35); MEAN CORPUSCULAR HGB CONC 33 g/dL (31-37); MEAN CORPUSCULAR VOLUME 95 fL (79-100); MONO % 8 % (0-9); NEUT # 9.3 x10^3/uL (1.8-7.7); NEUT % 76 % (31-73); PLATELET COUNT 356 x10^3/uL (140-400); RED BLOOD COUNT 3.28 x10^6/uL (3.50-5.40); RED CELL DISTRIBUTION WIDTH 16.9 % (11.5-14.5); WHITE BLOOD COUNT 12.2 x10^3/uL (4.0-11.0)
[2019-05-09 03:55] LABS: CALCIUM 7.9 mg/dL (8.5-10.1); CREATININE 1.4 mg/dL (0.6-1.0); GFR 36.1; POTASSIUM 4.5 mmol/L (3.5-5.1)
[2019-05-09 04:02] LABS: ALBUMIN 2.1 g/dL (3.4-5.0); ALBUMIN/GLOBULIN RATIO 0.6 (1.0-1.7); TOTAL PROTEIN 5.7 g/dL (6.4-8.2)
[2019-05-09] MEDS: HYDROMORPHONE EPID PRN ×5 (05:13→22:06)
[2019-05-09] MEDS: ROPIVACAINE 0.5% EPID PRN ×5 (05:13→22:06)
[2019-05-09] MEDS: NORMAL SALINE EPID PRN ×5 (05:13→22:06)
[2019-05-09] MEDS: [UNRECOGNIZED DRUG - OTHER] EPID PRN ×5 (05:13→22:06)
[2019-05-09] MEDS: AMINO AC 3%/ELECTROLYTE/GLYCER 1,000 ML IV SCH ×2 (08:05→19:45)
--- NOTE | 2019-05-09 08:12 | PDOC ---
SURGICAL PROGRESS NOTE Subjective Pt with c/o abd pain and not feeling well, but alert, pleasant and interactive. Fluid bolus last night and small amount of pressors (favor secondary to epidural). Mild nausea. Vital Signs Vital Signs Date Time Temp Pulse Resp B/P (MAP) Pulse Ox O2 Delivery O2 Flow Rate FiO2 05/09/19 06:00 97 18 107/62 (77) 96 Nasal Cannula 4.0 05/09/19 04:00 98.6 98.6 I&O Intake and Output 05/09/19 06:59 Intake Total 7361.37 ml Output Total 1455 ml Balance 5906.37 ml IV Total 7361.37 ml Output Urine Total 520 ml Drainage Total 185 ml Estimated Blood Loss 750 ml PATIENT HAS A MACEDO: Yes (accurate i and os) General: Alert, Oriented X3, Cooperative, No acute distress Abdomen: Soft, Other (MIRIAM serosang, dressing intact) Labs Laboratory Tests Test 05/09/19 03:15 White Blood Count 12.2 x10^3/uL (4.0-11.0) Red Blood Count 3.28 x10^6/uL (3.50-5.40) Hemoglobin 10.3 g/dL (12.0-15.5) Hematocrit 31.3 % (36.0-47.0) Mean Corpuscular Volume 95 fL (79-100) Mean Corpuscular Hemoglobin 31 pg (25-35) Mean Corpuscular Hemoglobin Concent 33 g/dL (31-37) Red Cell Distribution Width 16.9 % (11.5-14.5) Platelet Count 356 x10^3/uL (140-400) Neutrophils (%) (Auto) 76 % (31-73) Lymphocytes (%) (Auto) 15 % (24-48) Monocytes (%) (Auto) 8 % (0-9) Eosinophils (%) (Auto) 0 % (0-3) Basophils (%) (Auto) 1 % (0-3) Neutrophils # (Auto) 9.3 x10^3/uL (1.8-7.7) Lymphocytes # (Auto) 1.8 x10^3/uL (1.0-4.8) Monocytes # (Auto) 1.0 x10^3/uL (0.0-1.1) Eosinophils # (Auto) 0.0 x10^3/uL (0.0-0.7) Basophils # (Auto) 0.1 x10^3/uL (0.0-0.2) Sodium Level 140 mmol/L (136-145) Potassium Level 4.5 mmol/L (3.5-5.1) Chloride Level 108 mmol/L (98-107) Carbon Dioxide Level 25 mmol/L (21-32) Anion Gap 7 (6-14) Blood Urea Nitrogen 18 mg/dL (7-20) Creatinine 1.4 mg/dL (0.6-1.0) Estimated GFR (Cockcroft-Gault) 36.1 BUN/Creatinine Ratio 13 (6-20) Glucose Level 157 mg/dL (70-99) Calcium Level 7.9 mg/dL (8.5-10.1) Total Bilirubin 2.0 mg/dL (0.2-1.0) Aspartate Amino Transf (AST/SGOT) 239 U/L (15-37) Alanine Aminotransferase (ALT/SGPT) 277 U/L (14-59) Alkaline Phosphatase 162 U/L (46-116) Total Protein 5.7 g/dL (6.4-8.2) Albumin 2.1 g/dL (3.4-5.0) Albumin/Globulin Ratio 0.6 (1.0-1.7) Laboratory Tests Test 05/09/19 03:15 White Blood Count 12.2 x10^3/uL (4.0-11.0) Red Blood Count 3.28 x10^6/uL (3.50-5.40) Hemoglobin 10.3 g/dL (12.0-15.5) Hematocrit 31.3 % (36.0-47.0) Mean Corpuscular Volume 95 fL (79-100) Mean Corpuscular Hemoglobin 31 pg (25-35) Mean Corpuscular Hemoglobin Concent 33 g/dL (31-37) Red Cell Distribution Width 16.9 % (11.5-14.5) Platelet Count 356 x10^3/uL (140-400) Neutrophils (%) (Auto) 76 % (31-73) Lymphocytes (%) (Auto) 15 % (24-48) Monocytes (%) (Auto) 8 % (0-9) Eosinophils (%) (Auto) 0 % (0-3) Basophils (%) (Auto) 1 % (0-3) Neutrophils # (Auto) 9.3 x10^3/uL (1.8-7.7) Lymphocytes # (Auto) 1.8 x10^3/uL (1.0-4.8) Monocytes # (Auto) 1.0 x10^3/uL (0.0-1.1) Eosinophils # (Auto) 0.0 x10^3/uL (0.0-0.7) Basophils # (Auto) 0.1 x10^3/uL (0.0-0.2) Sodium Level 140 mmol/L (136-145) Potassium Level 4.5 mmol/L (3.5-5.1) Chloride Level 108 mmol/L (98-107) Carbon Dioxide Level 25 mmol/L (21-32) Anion Gap 7 (6-14) Blood Urea Nitrogen 18 mg/dL (7-20) Creatinine 1.4 mg/dL (0.6-1.0) Estimated GFR (Cockcroft-Gault) 36.1 BUN/Creatinine Ratio 13 (6-20) Glucose Level 157 mg/dL (70-99) Calcium Level 7.9 mg/dL (8.5-10.1) Total Bilirubin 2.0 mg/dL (0.2-1.0) Aspartate Amino Transf (AST/SGOT) 239 U/L (15-37) Alanine Aminotransferase (ALT/SGPT) 277 U/L (14-59) Alkaline Phosphatase 162 U/L (46-116) Total Protein 5.7 g/dL (6.4-8.2) Albumin 2.1 g/dL (3.4-5.0) Albumin/Globulin Ratio 0.6 (1.0-1.7) I have reviewed the following EKG obtained secondary to low blood pressor and low HR. EKG suggests old i nfarct, which pt confirms. Will ask cards to comment. Problem List Problems Medical Problems: (1) Acute hepatitis Status: Acute (2) Epigastric pain Status: Acute (3) Generalized pruritus Status: Acute (4) Obstructive jaundice Status: Acute Assessment/Plan s/p whipple, tolerating well cont NGT and supportive care suspect mild hypovolemia, given elevated cr and mild tachycardia, hypotension. pain control per anesthesia. MATT CALLEJAS MD May 09, 2019 08:12
[2019-05-09] MEDS: FAMOTIDINE 20 MG/2 ML VIAL IVP SCH (08:13)
[2019-05-09] MEDS: HEPARIN for SUB-Q USE 5,000 UNIT/ML VIAL. SQ SCH ×2 (08:20→20:59)
[2019-05-09] MEDS: GABAPENTIN 300 MG CAPSULE. PO SCH ×4 (08:21→21:00)
[2019-05-09] MEDS: POLYETHYLENE GLYCOL 3350 17 GM PACKET. PO SCH (08:21)
[2019-05-09] MEDS: SERTRALINE 50 MG TABLET. PO SCH (08:21)
[2019-05-09] MEDS: traMADol 50 MG TABLET PO SCH ×5 (08:21→21:00)
--- NOTE | 2019-05-09 08:57 | EKG ---
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
--- NOTE | 2019-05-09 09:21 | NUR ---
SS following for discharge planning. Pt transferred to ICU post surgery. Pt is currently requiring oxygen and is from home with spouse. No PT/OT at this time. SS will continue to follow for discharge planning.
--- NOTE | 2019-05-09 09:42 | PDOC ---
PROGRESS NOTES Subjective Subjective seen in ICU feels better,POD#1 Objective Objective Vital Signs Date Time Temp Pulse Resp B/P (MAP) Pulse Ox O2 Delivery O2 Flow Rate FiO2 05/09/19 06:00 97 18 107/62 (77) 96 Nasal Cannula 4.0 05/09/19 04:00 98.6 98.6 Intake and Output 05/09/19 07:00 Intake Total 7361.37 ml Output Total 1455 ml Balance 5906.37 ml IV Total 7361.37 ml Output Urine Total 520 ml Drainage Total 185 ml Estimated Blood Loss 750 ml Physical Exam Abdomen: Soft, Other (MIRIAM serosang, dressing intact) Heart: Regular rate, Normal S1, Normal S2 Extremities: No edema General: Alert, Oriented X3, Cooperative, No acute distress HEENT: Atraumatic Lungs: Clear to auscultation MUSCULOSKELETAL: No deformity, Osteoarthritic changes both hands Neck: Supple Neuro: Normal speech Psych/Mental Status: Mental status NL Skin: No rashes Diagnosis Problem List Problems Medical Problems: (1) Acute hepatitis Status: Acute (2) Epigastric pain Status: Acute (3) Generalized pruritus Status: Acute (4) Obstructive jaundice Status: Acute Assessment Assessment Problems Medical Problems: (1) Acute hepatitis Status: Acute (2) Epigastric pain Status: Acute (3) Generalized pruritus Status: Acute (4) Obstructive jaundice Status: Acute Problems obstructive jaundice Pancreatic cancer. mid CBD stricture dilated. brushings suspicious for adenocarcinoma MRCP shows stricture by pancreatic head PLAN: Procedure Performed:05/08/19 whipple procedure (specifically: pyloric sparing, pancreaticogastrostomy), G- tube placement .POD #1 ICU ifv fluids cardiology consult abnormal ekg drains multiple spoke with surgeon+cardiology Plan Plan of Care Problems Medical Problems: (1) Acute hepatitis Status: Acute (2) Epigastric pain Status: Acute (3) Generalized pruritus Status: Acute (4) Obstructive jaundice Status: Acute Comment Review of Relevant I have reviewed the following items betty (where applicable) has been applied. Labs Laboratory Tests Test 05/09/19 03:15 White Blood Count 12.2 x10^3/uL (4.0-11.0) Red Blood Count 3.28 x10^6/uL (3.50-5.40) Hemoglobin 10.3 g/dL (12.0-15.5) Hematocrit 31.3 % (36.0-47.0) Mean Corpuscular Volume 95 fL (79-100) Mean Corpuscular Hemoglobin 31 pg (25-35) Mean Corpuscular Hemoglobin Concent 33 g/dL (31-37) Red Cell Distribution Width 16.9 % (11.5-14.5) Platelet Count 356 x10^3/uL (140-400) Neutrophils (%) (Auto) 76 % (31-73) Lymphocytes (%) (Auto) 15 % (24-48) Monocytes (%) (Auto) 8 % (0-9) Eosinophils (%) (Auto) 0 % (0-3) Basophils (%) (Auto) 1 % (0-3) Neutrophils # (Auto) 9.3 x10^3/uL (1.8-7.7) Lymphocytes # (Auto) 1.8 x10^3/uL (1.0-4.8) Monocytes # (Auto) 1.0 x10^3/uL (0.0-1.1) Eosinophils # (Auto) 0.0 x10^3/uL (0.0-0.7) Basophils # (Auto) 0.1 x10^3/uL (0.0-0.2) Sodium Level 140 mmol/L (136-145) Potassium Level 4.5 mmol/L (3.5-5.1) Chloride Level 108 mmol/L (98-107) Carbon Dioxide Level 25 mmol/L (21-32) Anion Gap 7 (6-14) Blood Urea Nitrogen 18 mg/dL (7-20) Creatinine 1.4 mg/dL (0.6-1.0) Estimated GFR (Cockcroft-Gault) 36.1 BUN/Creatinine Ratio 13 (6-20) Glucose Level 157 mg/dL (70-99) Calcium Level 7.9 mg/dL (8.5-10.1) Total Bilirubin 2.0 mg/dL (0.2-1.0) Aspartate Amino Transf (AST/SGOT) 239 U/L (15-37) Alanine Aminotransferase (ALT/SGPT) 277 U/L (14-59) Alkaline Phosphatase 162 U/L (46-116) Total Protein 5.7 g/dL (6.4-8.2) Albumin 2.1 g/dL (3.4-5.0) Albumin/Globulin Ratio 0.6 (1.0-1.7) Microbiology 04/26/19 Urine Culture - Final, Complete 04/26/19 Urine Culture Result 1 (QUEENIE) - Final, Complete Medications Current Medications Cefoxitin Sodium (Mefoxin) 1 gm STK-MED ONCE IVP ; Start 05/08/19 at 13:51; Stop 05/08/19 at 13:52; Status DC Cefoxitin Sodium (Mefoxin) 2 gm 1X ONCE IVP Last administered on 05/08/19at 12:31; Start 05/08/19 at 12:30; Stop 05/08/19 at 12:31; Status DC Cefoxitin Sodium (Mefoxin) 2 gm 1X PREOP IVP ; Start 05/08/19 at 10:15 Famotidine (Pepcid Vial) 20 mg DAILY IVP Last administered on 05/09/19at 08:22; Start 05/08/19 at 21:00 Fentanyl Citrate (Fentanyl 2ml Vial) 100 mcg STK-MED ONCE .ROUTE ; Start 05/08/19 at 14:29; Stop 05/08/19 at 14:29; Status DC Heparin Sodium (Porcine) (Heparin Sodium) 5,000 unit Q12HR SQ Last administered on 05/09/19 08:22; Start 05/08/19 at 14:30 Naloxone HCl (Narcan) 0.4 mg PRN Q2MIN PRN IV SEE INSTRUCTIONS; Start 05/08/19 at 14:30 Norepinephrine Bitartrate 250 ml @ 13.438 mls/ hr CONT PRN IV SEE I/O RECORD Last administered on 05/09/19at 03:39; Start 05/08/19 at 18:45 Ondansetron HCl (Zofran) 4 mg PRN Q6HRS PRN IV NAUESA, 1ST CHOICE; Start 05/08/19 at 14:30 Ringer's Solution 500 ml @ 500 mls/hr 1X ONCE IV Last administered on 05/08/19at 19:22; Start 05/08/19 at 18:45; Stop 05/08/19 at 19:44; Status DC Ringer's Solution 500 ml @ 500 mls/hr 1X ONCE IV Last administered on 05/09/19at 03:39; Start 05/09/19 at 03:30; Stop 05/09/19 at 04:29; Status DC Ringer's Solution 500 ml @ 500 mls/hr 1X ONCE IV ; Start 05/09/19 at 08:15; Stop 05/09/19 at 09:14; Status DC Ringer's Solution 1,000 ml @ 100 mls/hr Q10H IV Last administered on 05/09/19at 07:43; Start 05/08/19 at 14:18 Sevoflurane (Ultane) 90 ml STK-MED ONCE IH ; Start 05/08/19 at 14:44; Stop 05/08/19 at 14:44; Status DC Sodium Chloride 1,000 ml @ 25 mls/hr Q24H IV ; Start 05/08/19 at 14:18 Sodium Chloride (Normal Saline Flush) 3 ml QSHIFT PRN IV AFTER MEDS AND BLOOD DRAWS; Start 05/08/19 at 14:30 Vitals/I & O Vital Sign - Last 24 Hours 05/08/19 05/08/19 05/08/19 05/08/19 14:45 14:45 15:00 15:15 Temp 99.3 99.3 99.3 99.3 99.3 99.3 Pulse 78 76 80 Resp 20 18 20 B/P (MAP) 118/78 113/64 109/70 Pulse Ox 100 100 98 O2 Delivery Simple Mask Mask Simple Mask Nasal Cannula O2 Flow Rate 10 10 10 4 05/08/19 05/08/19 05/08/19 05/08/19 15:24 15:30 15:37 15:45 Temp 99.3 99.3 99.3 99.3 Pulse 80 78 Resp 20 18 20 18 B/P (MAP) 114/71 104/62 Pulse Ox 97 99 98 97 O2 Delivery Nasal Cannula Simple Mask Nasal Cannula Nasal Cannula O2 Flow Rate 2.0 4 2.0 4 05/08/19 05/08/19 05/08/19 05/08/19 16:00 16:30 16:30 16:45 Temp 99.3 98.2 99.3 98.2 Pulse 76 90 80 Resp 21 11 15 B/P (MAP) 93/56 78/46 (57) 89/55 (66) Pulse Ox 100 96 95 O2 Delivery Nasal Cannula Nasal Cannula Nasal Cannula Nasal Cannula O2 Flow Rate 4 4.0 4.0 4.0 05/08/19 05/08/19 05/08/1915/19 17:00 17:15 18:00 19:00 Pulse 78 78 77 76 Resp 20 14 11 16 B/P (MAP) 83/51 (62) 79/46 (57) 85/49 (61) 97/63 (74) Pulse Ox 96 97 97 95 O2 Delivery Nasal Cannula Nasal Cannula Nasal Cannula Nasal Cannula O2 Flow Rate 4.0 4.0 4.0 4.0 05/08/19 05/08/19 05/08/19 05/08/19 19:35 19:50 20:00 20:00 Temp 99.8 99.8 Pulse 75 79 83 Resp 14 B/P (MAP) 73/46 (55) 95/52 (66) 90/48 (62) Pulse Ox 96 O2 Delivery Nasal Cannula Nasal Cannula O2 Flow Rate 4.0 4.0 05/08/19 05/08/19 05/08/19 05/08/19 20:45 21:00 22:00 23:00 Temp 99.4 99.4 Pulse 90 86 87 93 Resp 16 17 18 B/P (MAP) 71/44 (53) 100/52 (68) 97/53 (68) 86/57 (67) Pulse Ox 95 96 98 O2 Delivery Nasal Cannula Nasal Cannula Nasal Cannula O2 Flow Rate 4.0 4.0 4.0 05/08/19 05/09/19 05/09/19 05/09/19 23:15 00:00 00:00 01:00 Temp 98.6 98.6 Pulse 88 98 101 Resp 12 16 17 B/P (MAP) 112/60 (77) 109/56 (73) 91/48 (62) Pulse Ox 99 97 93 O2 Delivery Nasal Cannula Nasal Cannula Nasal Cannula Nasal Cannula O2 Flow Rate 4.0 4.0 4.0 4.0 05/09/19 05/09/19 05/09/19 05/09/19 02:00 03:00 04:00 04:00 Temp 98.6 98.6 Pulse 101 99 93 Resp 17 16 17 B/P (MAP) 101/56 (71) 97/59 (72) 120/59 (79) Pulse Ox 93 93 91 O2 Delivery Nasal Cannula Nasal Cannula Nasal Cannula Nasal Cannula O2 Flow Rate 4.0 4.0 4.0 4.0 05/09/19 05/09/19 05/09/1905/09/19 05:00 05:30 05:45 06:00 Pulse 97 99 101 97 Resp 18 18 B/P (MAP) 126/62 (83) 126/62 (83) 95/59 (71) 107/62 (77) Pulse Ox 96 96 O2 Delivery Nasal Cannula Nasal Cannula O2 Flow Rate 4.0 4.0 Intake and Output 05/08/19 05/08/19 05/09/19 15:00 23:00 07:00 Intake Total 4267 ml 3094.37 ml Output Total 775 ml 385 ml 295 ml Balance -775 ml 3882 ml 2799.37 ml BONNY BEST MD May 09, 2019 09:42
[2019-05-09] MEDS: CHOLESTYRAMINE/ASPARTAME 4 GM PACKET PO SCH ×2 (10:00→21:13)
--- NOTE | 2019-05-09 12:34 | CARD ---
MR#: [id number] Date of Study: 05/09/2019 Ordering Physician: COLEEN BARAHONA, Referring Physician: COLEEN BARAHONA Tech: Shena Painter [facility] APPROVED REPORT EXAM: Two-dimensional and M-mode echocardiogram with Doppler and color Doppler. Other Information Quality : AverageHR: 90bpm Rhythm : NSR INDICATION Chest Pain 2D DIMENSIONS RVDd3.5 (2.9-3.5cm)Left Atrium(2D)3.1 (1.6-4.0cm) IVSd1.0 (0.7-1.1cm)Aortic Root(2D)3.6 (2.0-3.7cm) LVDd4.8 (3.9-5.9cm)LVOT Diameter2.1 (1.8-2.4cm) PWd0.9 (0.7-1.1cm)LVDs2.9 (2.5-4.0cm) FS (%) 38.9 %SV74.7 ml Aortic Valve AoV Peak Tavon.153.0cm/sAoV VTI26.2cm AO Peak GR.9.4mmHgLVOT VTI 17.18cm AO Mean GR.6mmHgAVA (VTI)2.30cm2 Mitral Valve MV E Yzgxmtls815.6cm/sMV DECEL [id number] MV A Rrrdxxvf51.4cm/sE/A Ratio1.1 MV A Bwmjsajq38pi TDI Lateral E' P. V11.82cm/sE/Lateral E'8.6 Tricuspid Valve TR P. Xuvnuelt688kr/sRAP [id number] TR Peak Gr.49anDaVJFQ28goEr LEFT VENTRICLE The left ventricle is normal size. There is normal left ventricular wall thickness. The left ventricu lar systolic function is normal and the ejection fraction is within normal range. The Ejection Fracti on is 55-60%. There is normal LV segmental wall motion. Transmitral Doppler flow pattern is Grade II- pseudonormal filling dynamics. RIGHT VENTRICLE The right ventricle is mildly dilated. There is normal right ventricular wall thickness. The right ve ntricular systolic function is normal. ATRIA The left atrium size is normal. The right atrium size is normal. The interatrial septum is intact wit h no evidence for an atrial septal defect or patent foramen ovale as noted on 2-D or Doppler imaging. AORTIC VALVE The aortic valve is mildly calcified. The aortic valve is trileaflet. Doppler and Color Flow revealed no significant aortic regurgitation. There is no significant aortic valvular stenosis. MITRAL VALVE Mitral annular calcification is mild. There is no evidence of mitral valve prolapse. There is no mitr al valve stenosis. Doppler and Color Flow revealed no mitral valve regurgitation noted. TRICUSPID VALVE The tricuspid valve is normal in structure and function. Doppler and Color Flow revealed mild tricusp id regurgitation. The PA pressure was estimated at 42 mmHg. There is no tricuspid valve prolapse or v egetation. There is no tricuspid valve stenosis. PULMONIC VALVE The pulmonic valve is not well visualized. GREAT VESSELS The aortic root is normal in size. The ascending aorta is normal in size. The IVC was not visualized. PERICARDIAL EFFUSION There is no evidence of significant pericardial effusion. Critical Notification Critical Value: No <Conclusion> The left ventricle is normal size. The left ventricular systolic function is normal and the ejection fraction is within normal range. The Ejection Fraction is 55-60%. There is no significant aortic valvular stenosis. Doppler and Color Flow revealed no significant aortic regurgitation. Doppler and Color Flow revealed no mitral valve regurgitation noted. Doppler and Color Flow revealed mild tricuspid regurgitation. The PA pressure was estimated at 42 mmHg. Signed by : Mark Reyes MD Electronically Approved : 05/09/2019 12:34:16
--- NOTE | 2019-05-09 12:40 | PDOC ---
Objective: Objective: D/w nurse - getting central line and plans for TPN - doing well post-op. Vital Signs: Vital Signs Date Time Temp Pulse Resp B/P (MAP) Pulse Ox O2 Delivery O2 Flow Rate FiO2 05/09/19 10:00 92 16 99/54 (69) 95 Nasal Cannula 2.0 05/09/19 07:00 97.8 97.8 Labs: Laboratory Tests Test 05/09/19 03:15 White Blood Count 12.2 x10^3/uL Red Blood Count 3.28 x10^6/uL Hemoglobin 10.3 g/dL Hematocrit 31.3 % Mean Corpuscular Volume 95 fL Mean Corpuscular Hemoglobin 31 pg Mean Corpuscular Hemoglobin Concent 33 g/dL Red Cell Distribution Width 16.9 % Platelet Count 356 x10^3/uL Neutrophils (%) (Auto) 76 % Lymphocytes (%) (Auto) 15 % Monocytes (%) (Auto) 8 % Eosinophils (%) (Auto) 0 % Basophils (%) (Auto) 1 % Neutrophils # (Auto) 9.3 x10^3/uL Lymphocytes # (Auto) 1.8 x10^3/uL Monocytes # (Auto) 1.0 x10^3/uL Eosinophils # (Auto) 0.0 x10^3/uL Basophils # (Auto) 0.1 x10^3/uL Sodium Level 140 mmol/L Potassium Level 4.5 mmol/L Chloride Level 108 mmol/L Carbon Dioxide Level 25 mmol/L Anion Gap 7 Blood Urea Nitrogen 18 mg/dL Creatinine 1.4 mg/dL Estimated GFR (Cockcroft-Gault) 36.1 BUN/Creatinine Ratio 13 Glucose Level 157 mg/dL Calcium Level 7.9 mg/dL Total Bilirubin 2.0 mg/dL Aspartate Amino Transf (AST/SGOT) 239 U/L Alanine Aminotransferase (ALT/SGPT) 277 U/L Alkaline Phosphatase 162 U/L Total Protein 5.7 g/dL Albumin 2.1 g/dL Albumin/Globulin Ratio 0.6 Imaging: KUB 05/08 IMPRESSION: No obstructive bowel pattern or functional ileus is evident. Echocardiogram 05/08 <Conclusion> The left ventricle is normal size. The left ventricular systolic function is normal and the ejection fraction is within normal range. The Ejection Fraction is 55-60%. There is no significant aortic valvular stenosis. Doppler and Color Flow revealed no significant aortic regurgitation. Doppler and Color Flow revealed no mitral valve regurgitation noted. Doppler and Color Flow revealed mild tricuspid regurgitation. The PA pressure was estimated at 42 mmHg. PE: GEN: IR staff present for central line A/P: S/p whipple -- Continue per surgery. CORI PEDERSEN May 09, 2019 12:40
--- NOTE | 2019-05-09 12:49 | RAD ---
CHEST AP ONLY Clinical indications: Central line placement COMPARISON: April 26, 2019. Findings: A left IJ central line has been placed and the tip is seen within the lower SVC at the junction with the right atrium. No pneumothorax or pleural effusion is seen. There is a new medial left lung base infiltrate or atelectasis. The heart size, pulmonary vasculature, mediastinum and both kyle are stable. NG tube is in place and tip is seen within the mid body of the stomach. Impression: Placement of central line without pneumothorax. New medial left lung base infiltrate or atelectasis. Electronically signed by: Francisco Ching MD (05/09/2019 12:46 PM) [place] [id number]
[2019-05-09] MEDS: TPN PER PHARMACY MC PRN (13:19)
--- NOTE | 2019-05-09 14:04 | RAD ---
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 Informed consent was obtained. A timeout procedure was performed. All elements of maximal sterile barrier technique including the use of a cap, mask, sterile gown, sterile gloves, large sterile sheet, appropriate hand hygiene, and 2% chlorhexidine for cutaneous antisepsis (or acceptable alternative antiseptic per current guidelines) were followed for this procedure. The patient was prepped and draped in the usual sterile fashion. Ultrasound interrogation of the left neck revealed patency and compressibility of the right internal jugular vein. A 21-gauge micropuncture was then used to gain access to this vein under ultrasound guidance. A hard copy ultrasound image was recorded. A guidewire was advanced centrally. 5 Serbian sheath was placed. Over a wire following dilatation, a triple-lumen central venous catheter was advanced centrally. Catheter was found to flush and aspirate normally. Follow-up chest radiograph demonstrates tip at the cavoatrial junction. Catheter secured in place and a sterile dressing was applied. No immediate complications were identified. Impression: Successful ultrasound-guided placement of left internal jugular triple-lumen central venous catheter
[2019-05-09] MEDS: IV NORMAL SALINE 1000ML BAG 1,000 ML IV SCH (14:18)
[2019-05-09] MEDS ORDERED: TPN PER PHARMACY MC PRN (14:30)
--- NOTE | 2019-05-09 14:47 | NUR ---
Pharmacy TPN Dosing Note S: ANDREW LA is a 83 year old F Currently receiving Central Continuous TPN started 05/09/19 B:Pertinent PMH: NPO/POST WHIPPLE Height: 5 feet, 3 inches Weight: 73.950716 kg Current diet: PPN LABS: Sodium: 140 Potassium: 4.5 Chloride: 108 Calcium: 7.9 Corrected Calcium: 9.42 Magnesium: 2.2 CO2: 25 SCr: 1.4 Glucose: 157 Albumin: 2.1 AST: 239 ALT: 277 TPN FORMULA: TPN TYPE: Central Continuous AMINO ACIDS: 85 gm DEXTROSE: 250 gm LIPIDS: 20 gm SODIUM CHLORIDE: mEq SODIUM ACETATE: 90 mEq SODIUM PHOSPHATE: mmol POTASSIUM CHLORIDE: 50 mEq POTASSIUM ACETATE: mEq POTASSIUM PHOSPHATE: 13.6 mmol MAGNESIUM: 8 mEq CALCIUM: 10 mEq INSULIN: units MULTIPLE VITAMIN: 10 ml TRACE ELEMENTS: 1 ml(s) TPN PLAN: TPN W/AA 85 GM, DEXTROSE 250 GM, LIPID 20 GM R: Begin TPN AT 63ML/HR Will monitor electrolytes, glucose, and tolerance to TPN. CRISTOBAL ALMODOVAR [facility], 05/09/19 [id number]
[2019-05-09] MEDS: PANTOPRAZOLE IV PUSH 40 MG VIAL. IVP SCH (17:24)
[2019-05-09] MEDS ORDERED: ALBUMIN HUMAN 5% 500 ML IV ONE (17:30)
--- NOTE | 2019-05-09 17:43 | PDOC2 ---
CONSULT Date of Consult Date of Consult DATE: 05/09/19 TIME: 17:22 Reason for Consult Reason for Consult: abnormal EKG Referring Physician Referring Physician: Dr. Gibbs Identification/Chief Complaint Chief Complaint Abdominal pain Source Source: Chart review, Patient History of Present Illness Reason for Visit: The patient is an 83 year old female admitted on 04/26/19 for abdominal discomfort. She has had an extensive work up and had a Whipple procedure yesterday. We have been asked to evaluate her due to an abnormal EKG that shows a sunus rhythm, non specific ST changes and a small inferior Q wave. She is presently in bed S/P her procedure yesterday with post op pain. Past Medical History Cardiovascular: HTN, Hyperlipidemia Pulmonary: No pertinent hx, Pneumonia CENTRAL NERVOUS SYSTEM: Other GI: Constipation Heme/Onc: No pertinent hx Hepatobiliary: No pertinent hx Psych: Anxiety Musculoskeletal: Osteoarthritis Rheumatologic: Fibromyalgia Infectious disease: No pertinent hx Renal/: Chronic renal insuff, Other Endocrine: No pertinent hx Past Surgical History Past Surgical History: Cholecystectomy (recent surgery as above), Other Family History Family History: Hypertension Social History No ALCOHOL: occassional Drugs: None Lives: with Family Domestic Violence: Neg Current Problem List Problem List Problems Medical Problems: (1) Acute hepatitis Status: Acute (2) Epigastric pain Status: Acute (3) Generalized pruritus Status: Acute (4) Obstructive jaundice Status: Acute Current Medications Current Medications Current Medications Iohexol (Omnipaque 300 Mg/ml) 60 ml 1X ONCE IV Last administered on 04/26/19at 12:06; Start 04/26/19 at 12:30; Stop 04/26/19 at 12:31; Status DC Info (CONTRAST GIVEN -- Rx MONITORING) 1 each PRN DAILY PRN MC SEE COMMENTS; Start 04/26/19 at 12:00; Stop 04/28/19 at 11:59; Status DC Ondansetron HCl (Zofran) 4 mg PRN Q6HRS PRN IV NAUSEA/VOMITING Last administered on 04/29/19at 01:04; Start 04/26/19 at 12:30; Stop 04/29/19 at 04:56; Status DC Cholestyramine Resin (Questran Light) 4 gm BID@1000,2200 PO Last administered on 05/07/19at 10:23; Start 04/26/19 at 22:00 Hydroxyzine HCl (Atarax) 25 mg PRN Q6HRS PRN PO ITCHING Last administered on 05/06/19 21:03; Start 04/26/19 at 12:30 Morphine Sulfate (Morphine Sulfate) 2 mg PRN Q6HRS PRN IV SEVERE PAIN 7-10; Start 04/26/19 at 12:30; Stop 04/26/19 at 12:42; Status DC Acetaminophen/ Hydrocodone Bitart (Lortab 5/325) 1 tab PRN Q6HRS PRN PO MILD PAIN / TEMP; Start 04/26/19 at 12:30; Stop 04/26/19 at 12:42; Status DC Gabapentin (Neurontin) 300 mg TID PO Last administered on 05/07/19 21:07; Start 04/26/19 at 14:00 Lorazepam (Ativan) 0.5 mg PRN BID PRN PO AGITATION; Start 04/26/19 at 12:30 Sertraline HCl (Zoloft) 50 mg DAILY PO Last administered on 05/07/19 09:02; Start 04/27/19 at 09:00 Tramadol HCl (Ultram) 50 mg TID PO Last administered on 04/29/19 09:09; Start 04/26/19 at 14:00; Stop 04/29/19 at 10:09; Status DC Acetaminophen (Tylenol) 325 mg PRN Q6HRS PRN PO MILD PAIN / TEMP; Start 04/26/19 at 12:30 Polyethylene Glycol (miraLAX PACKET) 17 gm DAILY PO Last administered on 05/07/19 09:02; Start 04/27/19 at 09:00 Magnesium Hydroxide (Milk Of Magnesia) 2,400 mg PRN DAILY PRN PO CONSTIPATION Last administered on 04/29/19 02:34; Start 04/26/19 at 12:30 Acetaminophen/ Hydrocodone Bitart (Lortab 5/325) 1 tab PRN Q4HRS PRN PO MODERATE PAIN Last administered on 05/05/19 08:41; Start 04/26/19 at 12:45 Morphine Sulfate (Morphine Sulfate) 1 mg PRN Q4HRS PRN IV SEVERE PAIN 7-10 Last administered on 04/29/19 01:11; Start 04/26/19 at 12:45; Stop 04/29/19 at 04:56; Status DC Levofloxacin/ Dextrose 100 ml @ 100 mls/hr 1X ONCE IV Last administered on 04/28/19at 08:31; Start 04/28/19 at 07:15; Stop 04/28/19 at 08:14; Status DC Ringer's Solution 1,000 ml @ 75 mls/hr 1X ONCE IV Last administered on 04/28/19at 14:43; Start 04/28/19 at 12:15; Stop 04/29/19 at 01:34; Status DC Iohexol (Omnipaque 300 Mg/ml) 100 ml STK-MED ONCE .ROUTE ; Start 04/28/19 at 13:24; Stop 04/28/19 at 13:25; Status DC Famotidine (Pepcid Vial) 20 mg STK-MED ONCE .ROUTE ; Start 04/28/19 at 14:12; Stop 04/28/19 at 14:13; Status DC Dexamethasone Sodium Phosphate (Decadron) 20 mg STK-MED ONCE .ROUTE ; Start 04/28/19 at 14:13; Stop 04/28/19 at 14:14; Status DC Lidocaine HCl (Lidocaine Pf 2% Vial) 5 ml STK-MED ONCE .ROUTE ; Start 04/28/19 at 15:00; Stop 04/28/19 at 15:01; Status DC Iohexol (Omnipaque 300 Mg/ml) 100 ml STK-MED ONCE IV Last administered on 04/28/19at 16:20; Start 04/28/19 at 16:20; Stop 04/28/19 at 16:48; Status DC Fentanyl Citrate (Fentanyl 2ml Vial) 25 mcg 1X ONCE IV Last administered on 04/28/19at 17:05; Start 04/28/19 at 17:00; Stop 04/28/19 at 17:01; Status DC Morphine Sulfate (Morphine Sulfate) 2 mg PRN Q4HRS PRN IV SEVERE PAIN 7-10; Start 04/29/19 at 05:00; Stop 05/08/19 at 08:25; Status DC Ondansetron HCl (Zofran) 8 mg PRN Q6HRS PRN IV NAUSEA/VOMITING, 1ST CHOICE Last administered on 05/03/19at 22:23; Start 04/29/19 at 05:00 Prochlorperazine Maleate (Compazine) 10 mg PRN Q6HRS PRN PO NAUSEA/VOMITING; Start 04/29/19 at 05:00 Tramadol HCl (Ultram) 50 mg QID PO Last administered on 05/08/19at 00:11; Start 04/29/19 at 13:00 Potassium Chloride/Dextrose/ Sod Cl 1,000 ml @ 75 mls/hr [id number] IV Last administered on 04/30/19at 02:53; Start 04/29/19 at 10:15; Stop 04/30/19 at 10:45; Status DC Amitriptyline HCl (Elavil) 25 mg QHS PO Last administered on 05/07/19at 21:07; Start 04/29/19 at 21:00 Phenylephrine HCl (PHENYLEPHRINE in 0.9% NACL PF) 1 mg STK-MED ONCE IV ; Start 04/28/19 at 14:00; Stop 04/29/19 at 13:10; Status DC Succinylcholine Chloride (Anectine) 200 mg STK-MED ONCE .ROUTE ; Start 04/28/19 at 14:00; Stop 04/29/19 at 13:10; Status DC Propofol (Diprivan) 200 mg STK-MED ONCE IV ; Start 04/28/19 at 14:00; Stop 04/29/19 at 13:10; Status DC Amino Acids/ Glycerin/ Electrolytes 1,000 ml @ 80 mls/hr [id number] IV Last administered on 05/09/19at 08:22; Start 04/30/19 at 10:45; Stop 05/09/19 at 21:59 Amlodipine Besylate (Norvasc) 5 mg DAILY PO Last administered on 05/05/19at 08:41; Start 05/01/19 at 13:00; Stop 05/05/19 at 10:06; Status DC Hydralazine HCl (Apresoline Inj) 10 mg PRN Q4HRS PRN IVP ELEVATED BP, SEE COMMENTS; Start 05/01/19 at 12:45 Amlodipine Besylate (Norvasc) 2.5 mg DAILY PO Last administered on 05/06/19at 09:28; Start 05/05/19 at 10:30; Stop 05/06/19 at 10:03; Status DC Cefoxitin Sodium (Mefoxin) 2 gm 1X PREOP IVP ; Start 05/08/19 at 08:00; Stop 05/08/19 at 10:15; Status DC Ondansetron HCl (Zofran) 4 mg PRN Q6HRS PRN IV NAUSEA/VOMITING; Start 05/08/19 at 07:00; Stop 05/08/19 at 20:00; Status DC Fentanyl Citrate (Fentanyl 2ml Vial) 25 mcg PRN Q5MIN PRN IV MILD PAIN 1-3 Last administered on 05/08/19at 15:37; Start 05/08/19 at 07:00; Stop 05/08/19 at 20:00; Status DC Fentanyl Citrate (Fentanyl 2ml Vial) 50 mcg PRN Q5MIN PRN IV MODERATE TO SEVERE PAIN; Start 05/08/19 at 07:00; Stop 05/08/19 at 20:00; Status DC Morphine Sulfate (Morphine Sulfate) 1 mg PRN Q10MIN PRN IV SEVERE PAIN 7-10; Start 05/08/19 at 07:00; Stop 05/08/19 at 20:00; Status DC Ringer's Solution 1,000 ml @ 30 mls/hr Q24H IV Last administered on 05/08/19at 07:28; Start 05/08/19 at 07:00; Stop 05/08/19 at 18:59; Status DC Hydromorphone HCl (Dilaudid) 0.5 mg PRN Q10MIN PRN IV SEV PAIN, Second choice; Start 05/08/19 at 07:00; Stop 05/08/19 at 20:00; Status DC Prochlorperazine Edisylate (Compazine) 5 mg PACU PRN PRN IV NAUSEA, MRX1 Last administered on 05/08/19at 15:37; Start 05/08/19 at 07:00; Stop 05/08/19 at 20:00; Status DC Fentanyl Citrate (Fentanyl 2ml Vial) 100 mcg STK-MED ONCE .ROUTE ; Start 05/08/19 at 07:06; Stop 05/08/19 at 07:07; Status DC Glycopyrrolate (Robinul) 1 mg STK-MED ONCE .ROUTE ; Start 05/08/19 at 07:07; Stop 05/08/19 at 07:07; Status DC Rocuronium Hulbert (Zemuron) 100 mg STK-MED ONCE .ROUTE ; Start 05/08/19 at 07:08; Stop 05/08/19 at 07:08; Status DC Neostigmine Methylsulfate (Neostigmine Methylsulfate) 5 mg STK-MED ONCE .ROUTE ; Start 05/08/19 at 07:08; Stop 05/08/19 at 07:08; Status DC Propofol 20 ml @ As Directed STK-MED ONCE IV ; Start 05/08/19 at 07:09; Stop 05/08/19 at 07:09; Status DC Lidocaine HCl (Lidocaine Pf 2% Vial) 5 ml STK-MED ONCE .ROUTE ; Start 05/08/19 at 07:09; Stop 05/08/19 at 07:09; Status DC Ondansetron HCl (Zofran) 4 mg STK-MED ONCE .ROUTE ; Start 05/08/19 at 07:09; Stop 05/08/19 at 07:09; Status DC Dexamethasone Sodium Phosphate (Decadron) 4 mg STK-MED ONCE .ROUTE ; Start 05/08/19 at 07:09; Stop 05/08/19 at 07:09; Status DC Phenylephrine HCl (Ricco-Synephrine Inj) 10 mg STK-MED ONCE .ROUTE ; Start 05/08/19 at 07:12; Stop 05/08/19 at 07:12; Status DC Sodium Chloride 39.95 ml/ Hydromorphone HCl 0.5 mg/ Ropivacaine 10 ml/ Epidural Dosage Infused (Pha) 50 ml @ 8 mls/hr CONT PRN EPID PER PROTOCOL Last administered on 05/09/19at 13:13; Start 05/08/19 at 09:00 Fentanyl Citrate (Fentanyl 2ml Vial) 100 mcg STK-MED ONCE .ROUTE ; Start 05/08/19 at 08:25; Stop 05/08/19 at 08:25; Status DC Ephedrine Sulfate (ePHEDrine PF IN SALINE SYRINGE) 50 mg STK-MED ONCE IV ; Start 05/08/19 at 08:37; Stop 05/08/19 at 08:37; Status DC Cefoxitin Sodium (Mefoxin) 2 gm 1X PREOP IVP ; Start 05/08/19 at 10:15 Cefoxitin Sodium (Mefoxin) 2 gm 1X ONCE IVP Last administered on 05/08/19at 12:31; Start 05/08/19 at 12:30; Stop 05/08/19 at 12:31; Status DC Cefoxitin Sodium (Mefoxin) 1 gm STK-MED ONCE IVP ; Start 05/08/19 at 13:51; Stop 05/08/19 at 13:52; Status DC Famotidine (Pepcid Vial) 20 mg DAILY IVP Last administered on 05/09/19at 08:22; Start 05/08/19 at 21:00; Stop 05/09/19 at 16:20; Status DC Heparin Sodium (Porcine) (Heparin Sodium) 5,000 unit Q12HR SQ Last administered on 05/09/19at 08:22; Start 05/08/19 at 14:30 Sodium Chloride (Normal Saline Flush) 3 ml QSHIFT PRN IV AFTER MEDS AND BLOOD DRAWS; Start 05/08/19 at 14:30 Ringer's Solution 1,000 ml @ 100 mls/hr Q10H IV Last administered on 05/09/19at 07:43; Start 05/08/19 at 14:18 Naloxone HCl (Narcan) 0.4 mg PRN Q2MIN PRN IV SEE INSTRUCTIONS; Start 05/08/19 at 14:30 Sodium Chloride 1,000 ml @ 25 mls/hr Q24H IV ; Start 05/08/19 at 14:18 Ondansetron HCl (Zofran) 4 mg PRN Q6HRS PRN IV NAUESA, 1ST CHOICE; Start 05/08/19 at 14:30 Fentanyl Citrate (Fentanyl 2ml Vial) 100 mcg STK-MED ONCE .ROUTE ; Start 05/08/19 at 14:29; Stop 05/08/19 at 14:29; Status DC Sevoflurane (Ultane) 90 ml STK-MED ONCE IH ; Start 05/08/19 at 14:44; Stop 05/08/19 at 14:44; Status DC Norepinephrine Bitartrate 250 ml @ 13.438 mls/ hr CONT PRN IV SEE I/O RECORD Last administered on 05/09/19at 03:39; Start 05/08/19 at 18:45 Ringer's Solution 500 ml @ 500 mls/hr 1X ONCE IV Last administered on 05/08/19at 19:22; Start 05/08/19 at 18:45; Stop 05/08/19 at 19:44; Status DC Ringer's Solution 500 ml @ 500 mls/hr 1X ONCE IV Last administered on 05/09/19at 03:39; Start 05/09/19 at 03:30; Stop 05/09/19 at 04:29; Status DC Ringer's Solution 500 ml @ 500 mls/hr 1X ONCE IV Last administered on 05/09/19at 10:14; Start 05/09/19 at 08:15; Stop 05/09/19 at 09:14; Status DC Info (Tpn Per Pharmacy) 1 each PRN DAILY PRN MC SEE COMMENTS Last administered on 05/09/19at 13:19; Start 05/09/19 at 13:00 Sodium Acetate 90 meq/Potassium Chloride 50 meq/ Potassium Phosphate 13.6 mmol/Magnesium Sulfate 8 meq/ Calcium Gluconate 10 meq/ Multivitamins 10 ml/Chromium/ Copper/Manganese/ Seleni/Zn 1 ml/ Total Parenteral Nutrition/Amino Acids/Dextrose/ Fat Emulsion Intravenous 1,512 ml @ 63 mls/hr TPN CONT IV ; Start 05/09/19 at 22:00; Stop 05/10/19 at 21:59 Info (Tpn Per Pharmacy) 1 each PRN DAILY PRN MC SEE COMMENTS; Start 05/09/19 at 14:30; Status UNV Pantoprazole Sodium (PROTONIX VIAL for IV PUSH) 40 mg [id number] IVP ; Start 05/09/19 at 18:00 Albumin Human 500 ml @ 125 mls/hr 1X ONCE IV ; Start 05/09/19 at 17:30; Stop 05/09/19 at 21:29 Active Scripts Active Zoloft (Sertraline Hcl) 50 Mg Tablet 50 Mg PO DAILY [Polyethylene Glycol 3350] 17 GM Packet 17 Gm PO DAILY [Oxycodone Hcl/Acetaminophen] 1 TAB Tablet 1 Tab PO PRN Q4HRS PRN Neurontin (Gabapentin) 300 Mg Capsule 300 Mg PO TID [Amoxicillin/Potassium Clav] 1 TAB Tablet 1 Tab PO BID [Amitriptyline Hcl] 50 MG Tablet 50 Mg PO QHS Lipitor (Atorvastatin Calcium) 10 Mg Tablet 10 Mg PO QHS Allergies Allergies: Coded Allergies: Penicillins (Verified Allergy, Intermediate, 05/08/19) rash Sulfa (Sulfonamide Antibiotics) (Verified Allergy, Intermediate, Hives., 05/08/19) lisinopril (Verified Allergy, Intermediate, 05/08/19) ROS General: YES: Fatigue Gastrointestinal: Yes Other (post op pain) Physical Exam General: moderate distress HEENT: Atraumatic Lungs: Clear to auscultation Heart: Regular rate Abdomen: Other (S/P a Whipple yesterday) Vitals VITALS Vital Signs Date Time Temp Pulse Resp B/P (MAP) Pulse Ox O2 Delivery O2 Flow Rate FiO2 05/09/19 16:05 Nasal Cannula 2.0 05/09/19 16:00 96 28 103/47 (65) 96 05/09/19 12:00 99.0 99.0 Labs Labs Laboratory Tests Test 05/09/19 03:15 White Blood Count 12.2 x10^3/uL (4.0-11.0) Red Blood Count 3.28 x10^6/uL (3.50-5.40) Hemoglobin 10.3 g/dL (12.0-15.5) Hematocrit 31.3 % (36.0-47.0) Mean Corpuscular Volume 95 fL (79-100) Mean Corpuscular Hemoglobin 31 pg (25-35) Mean Corpuscular Hemoglobin Concent 33 g/dL (31-37) Red Cell Distribution Width 16.9 % (11.5-14.5) Platelet Count 356 x10^3/uL (140-400) Neutrophils (%) (Auto) 76 % (31-73) Lymphocytes (%) (Auto) 15 % (24-48) Monocytes (%) (Auto) 8 % (0-9) Eosinophils (%) (Auto) 0 % (0-3) Basophils (%) (Auto) 1 % (0-3) Neutrophils # (Auto) 9.3 x10^3/uL (1.8-7.7) Lymphocytes # (Auto) 1.8 x10^3/uL (1.0-4.8) Monocytes # (Auto) 1.0 x10^3/uL (0.0-1.1) Eosinophils # (Auto) 0.0 x10^3/uL (0.0-0.7) Basophils # (Auto) 0.1 x10^3/uL (0.0-0.2) Sodium Level 140 mmol/L (136-145) Potassium Level 4.5 mmol/L (3.5-5.1) Chloride Level 108 mmol/L (98-107) Carbon Dioxide Level 25 mmol/L (21-32) Anion Gap 7 (6-14) Blood Urea Nitrogen 18 mg/dL (7-20) Creatinine 1.4 mg/dL (0.6-1.0) Estimated GFR (Cockcroft-Gault) 36.1 BUN/Creatinine Ratio 13 (6-20) Glucose Level 157 mg/dL (70-99) Calcium Level 7.9 mg/dL (8.5-10.1) Total Bilirubin 2.0 mg/dL (0.2-1.0) Aspartate Amino Transf (AST/SGOT) 239 U/L (15-37) Alanine Aminotransferase (ALT/SGPT) 277 U/L (14-59) Alkaline Phosphatase 162 U/L (46-116) Total Protein 5.7 g/dL (6.4-8.2) Albumin 2.1 g/dL (3.4-5.0) Albumin/Globulin Ratio 0.6 (1.0-1.7) Laboratory Tests Test 05/09/19 03:15 White Blood Count 12.2 x10^3/uL (4.0-11.0) Red Blood Count 3.28 x10^6/uL (3.50-5.40) Hemoglobin 10.3 g/dL (12.0-15.5) Hematocrit 31.3 % (36.0-47.0) Mean Corpuscular Volume 95 fL (79-100) Mean Corpuscular Hemoglobin 31 pg (25-35) Mean Corpuscular Hemoglobin Concent 33 g/dL (31-37) Red Cell Distribution Width 16.9 % (11.5-14.5) Platelet Count 356 x10^3/uL (140-400) Neutrophils (%) (Auto) 76 % (31-73) Lymphocytes (%) (Auto) 15 % (24-48) Monocytes (%) (Auto) 8 % (0-9) Eosinophils (%) (Auto) 0 % (0-3) Basophils (%) (Auto) 1 % (0-3) Neutrophils # (Auto) 9.3 x10^3/uL (1.8-7.7) Lymphocytes # (Auto) 1.8 x10^3/uL (1.0-4.8) Monocytes # (Auto) 1.0 x10^3/uL (0.0-1.1) Eosinophils # (Auto) 0.0 x10^3/uL (0.0-0.7) Basophils # (Auto) 0.1 x10^3/uL (0.0-0.2) Sodium Level 140 mmol/L (136-145) Potassium Level 4.5 mmol/L (3.5-5.1) Chloride Level 108 mmol/L (98-107) Carbon Dioxide Level 25 mmol/L (21-32) Anion Gap 7 (6-14) Blood Urea Nitrogen 18 mg/dL (7-20) Creatinine 1.4 mg/dL (0.6-1.0) Estimated GFR (Cockcroft-Gault) 36.1 BUN/Creatinine Ratio 13 (6-20) Glucose Level 157 mg/dL (70-99) Calcium Level 7.9 mg/dL (8.5-10.1) Total Bilirubin 2.0 mg/dL (0.2-1.0) Aspartate Amino Transf (AST/SGOT) 239 U/L (15-37) Alanine Aminotransferase (ALT/SGPT) 277 U/L (14-59) Alkaline Phosphatase 162 U/L (46-116) Total Protein 5.7 g/dL (6.4-8.2) Albumin 2.1 g/dL (3.4-5.0) Albumin/Globulin Ratio 0.6 (1.0-1.7) Assessment/Plan Assessment/Plan 1. Abdominal pain, S/P a Whipple procedure yesterday. Continue as per surgery and GI. 2. Minimally abnormal EKG. No presentation with chest pain. Will check an ECHO for LV function. Continue other treatment. 3. HTN. Controlled. Restart baseline medications as needed, Thank you for allowing us to participate in the care of your patient. SARAH BOYD MD May 09, 2019 17:43
[2019-05-09] MEDS ORDERED: ACETAMINOPHEN 650 MG SUPP.RECT. PR PRN (18:30)
[2019-05-09] MEDS: diphenhydrAMINE 50 MG/ML VIAL IVP PRN (18:33)
[2019-05-09] MEDS: AMITRIPTYLINE HCL 25 MG TABLET. PO SCH ×2 (20:58→21:00)
[2019-05-09] MEDS ORDERED: [UNRECOGNIZED DRUG - OTHER] IV SCH ×10 (22:00)
[2019-05-09] MEDS ORDERED: TOTAL PARENTERAL NUTRITION IV SCH ×10 (22:00)
[2019-05-09] MEDS ORDERED: AMINO ACID IV SCH ×10 (22:00)
[2019-05-09] MEDS ORDERED: DEXTROSE 70% IV SCH ×10 (22:00)
[2019-05-10] VITALS (24 sets, daily range): BP systolic 92–120; BP diastolic 43–67
[2019-05-10] MEDS: [UNRECOGNIZED DRUG - OTHER] EPID PRN ×6 (03:53→23:52)
[2019-05-10] MEDS: NORMAL SALINE EPID PRN ×6 (03:53→23:52)
[2019-05-10] MEDS: ROPIVACAINE 0.5% EPID PRN ×6 (03:53→23:52)
[2019-05-10] MEDS: HYDROMORPHONE EPID PRN ×6 (03:53→23:52)
[2019-05-10] MEDS: PANTOPRAZOLE IV PUSH 40 MG VIAL. IVP SCH ×2 (05:21→18:03)
[2019-05-10 05:42] LABS: BASO % 0 % (0-3); EOS # 0.1 x10^3/uL (0.0-0.7); EOS % 1 % (0-3); HEMATOCRIT 22.5 % (36.0-47.0); HEMOGLOBIN 7.6 g/dL (12.0-15.5); LYMPH # 1.2 x10^3/uL (1.0-4.8); LYMPH % 11 % (24-48); MEAN CORPUSCULAR HEMOGLOBIN 32 pg (25-35); MEAN CORPUSCULAR HGB CONC 34 g/dL (31-37); MEAN CORPUSCULAR VOLUME 94 fL (79-100); MONO # 0.7 x10^3/uL (0.0-1.1); MONO % 7 % (0-9); NEUT # 8.6 x10^3/uL (1.8-7.7); NEUT % 81 % (31-73); PLATELET COUNT 198 x10^3/uL (140-400); RED BLOOD COUNT 2.39 x10^6/uL (3.50-5.40); RED CELL DISTRIBUTION WIDTH 15.9 % (11.5-14.5); WHITE BLOOD COUNT 10.6 x10^3/uL (4.0-11.0)
[2019-05-10 06:02] LABS: GFR 53.2; POTASSIUM 3.9 mmol/L (3.5-5.1)
[2019-05-10 06:06] LABS: MAGNESIUM 1.9 mg/dL (1.8-2.4); PHOSPHORUS 1.4 mg/dL (2.6-4.7)
[2019-05-10] MEDS: POLYETHYLENE GLYCOL 3350 17 GM PACKET. PO SCH (07:26)
[2019-05-10] MEDS: GABAPENTIN 300 MG CAPSULE. PO SCH ×3 (07:26→21:00)
[2019-05-10] MEDS: traMADol 50 MG TABLET PO SCH ×4 (07:27→21:00)
[2019-05-10] MEDS: SERTRALINE 50 MG TABLET. PO SCH (07:27)
[2019-05-10] MEDS: CHOLESTYRAMINE/ASPARTAME 4 GM PACKET PO SCH ×2 (07:28→21:11)
[2019-05-10] MEDS: HEPARIN for SUB-Q USE 5,000 UNIT/ML VIAL. SQ SCH ×2 (07:28→21:31)
[2019-05-10] MEDS: POTASSIUM PHOSPHATE DIBASIC 13.6 MMOL in IV DEXTROSE 5% 100ML 100 ML IV SCH ×2 (09:13→11:28)
[2019-05-10] MEDS: TPN PER PHARMACY MC PRN (11:00)
--- NOTE | 2019-05-10 11:10 | PDOC ---
G I PROGRESS NOTE Reason for Follow-up Pancreatic ca s/p whipple Subjective Alert/responsive Physical Exam Lungs clear CV S1 S2 ABD incisions intact, -BS, Review of Relevant I have reviewed the following items betty (where applicable) has been applied. Labs Laboratory Tests Test 05/09/19 03:15 05/10/19 05:30 White Blood Count 12.2 x10^3/uL (4.0-11.0) 10.6 x10^3/uL (4.0-11.0) Red Blood Count 3.28 x10^6/uL (3.50-5.40) 2.39 x10^6/uL (3.50-5.40) Hemoglobin 10.3 g/dL (12.0-15.5) 7.6 g/dL (12.0-15.5) Hematocrit 31.3 % (36.0-47.0) 22.5 % (36.0-47.0) Mean Corpuscular Volume 95 fL (79-100) 94 fL (79-100) Mean Corpuscular Hemoglobin 31 pg (25-35) 32 pg (25-35) Mean Corpuscular Hemoglobin Concent 33 g/dL (31-37) 34 g/dL (31-37) Red Cell Distribution Width 16.9 % (11.5-14.5) 15.9 % (11.5-14.5) Platelet Count 356 x10^3/uL (140-400) 198 x10^3/uL (140-400) Neutrophils (%) (Auto) 76 % (31-73) 81 % (31-73) Lymphocytes (%) (Auto) 15 % (24-48) 11 % (24-48) Monocytes (%) (Auto) 8 % (0-9) 7 % (0-9) Eosinophils (%) (Auto) 0 % (0-3) 1 % (0-3) Basophils (%) (Auto) 1 % (0-3) 0 % (0-3) Neutrophils # (Auto) 9.3 x10^3/uL (1.8-7.7) 8.6 x10^3/uL (1.8-7.7) Lymphocytes # (Auto) 1.8 x10^3/uL (1.0-4.8) 1.2 x10^3/uL (1.0-4.8) Monocytes # (Auto) 1.0 x10^3/uL (0.0-1.1) 0.7 x10^3/uL (0.0-1.1) Eosinophils # (Auto) 0.0 x10^3/uL (0.0-0.7) 0.1 x10^3/uL (0.0-0.7) Basophils # (Auto) 0.1 x10^3/uL (0.0-0.2) 0.0 x10^3/uL (0.0-0.2) Sodium Level 140 mmol/L (136-145) 139 mmol/L (136-145) Potassium Level 4.5 mmol/L (3.5-5.1) 3.9 mmol/L (3.5-5.1) Chloride Level 108 mmol/L (98-107) 107 mmol/L (98-107) Carbon Dioxide Level 25 mmol/L (21-32) 27 mmol/L (21-32) Anion Gap 7 (6-14) 5 (6-14) Blood Urea Nitrogen 18 mg/dL (7-20) 16 mg/dL (7-20) Creatinine 1.4 mg/dL (0.6-1.0) 1.0 mg/dL (0.6-1.0) Estimated GFR (Cockcroft-Gault) 36.1 53.2 BUN/Creatinine Ratio 13 (6-20) Glucose Level 157 mg/dL (70-99) 192 mg/dL (70-99) Calcium Level 7.9 mg/dL (8.5-10.1) 8.0 mg/dL (8.5-10.1) Total Bilirubin 2.0 mg/dL (0.2-1.0) Aspartate Amino Transf (AST/SGOT) 239 U/L (15-37) Alanine Aminotransferase (ALT/SGPT) 277 U/L (14-59) Alkaline Phosphatase 162 U/L (46-116) Total Protein 5.7 g/dL (6.4-8.2) Albumin 2.1 g/dL (3.4-5.0) Albumin/Globulin Ratio 0.6 (1.0-1.7) Phosphorus Level 1.4 mg/dL (2.6-4.7) Magnesium Level 1.9 mg/dL (1.8-2.4) Laboratory Tests Test 05/10/19 05:30 White Blood Count 10.6 x10^3/uL (4.0-11.0) Red Blood Count 2.39 x10^6/uL (3.50-5.40) Hemoglobin 7.6 g/dL (12.0-15.5) Hematocrit 22.5 % (36.0-47.0) Mean Corpuscular Volume 94 fL (79-100) Mean Corpuscular Hemoglobin 32 pg (25-35) Mean Corpuscular Hemoglobin Concent 34 g/dL (31-37) Red Cell Distribution Width 15.9 % (11.5-14.5) Platelet Count 198 x10^3/uL (140-400) Neutrophils (%) (Auto) 81 % (31-73) Lymphocytes (%) (Auto) 11 % (24-48) Monocytes (%) (Auto) 7 % (0-9) Eosinophils (%) (Auto) 1 % (0-3) Basophils (%) (Auto) 0 % (0-3) Neutrophils # (Auto) 8.6 x10^3/uL (1.8-7.7) Lymphocytes # (Auto) 1.2 x10^3/uL (1.0-4.8) Monocytes # (Auto) 0.7 x10^3/uL (0.0-1.1) Eosinophils # (Auto) 0.1 x10^3/uL (0.0-0.7) Basophils # (Auto) 0.0 x10^3/uL (0.0-0.2) Sodium Level 139 mmol/L (136-145) Potassium Level 3.9 mmol/L (3.5-5.1) Chloride Level 107 mmol/L (98-107) Carbon Dioxide Level 27 mmol/L (21-32) Anion Gap 5 (6-14) Blood Urea Nitrogen 16 mg/dL (7-20) Creatinine 1.0 mg/dL (0.6-1.0) Estimated GFR (Cockcroft-Gault) 53.2 Glucose Level 192 mg/dL (70-99) Calcium Level 8.0 mg/dL (8.5-10.1) Phosphorus Level 1.4 mg/dL (2.6-4.7) Magnesium Level 1.9 mg/dL (1.8-2.4) Microbiology 04/26/19 Urine Culture - Final, Complete 04/26/19 Urine Culture Result 1 (QUEENIE) - Final, Complete Medications Current Medications Iohexol (Omnipaque 300 Mg/ml) 60 ml 1X ONCE IV Last administered on 04/26/19at 12:06; Start 04/26/19 at 12:30; Stop 04/26/19 at 12:31; Status DC Info (CONTRAST GIVEN -- Rx MONITORING) 1 each PRN DAILY PRN MC SEE COMMENTS; Start 04/26/19 at 12:00; Stop 04/28/19 at 11:59; Status DC Ondansetron HCl (Zofran) 4 mg PRN Q6HRS PRN IV NAUSEA/VOMITING Last administered on 04/29/19at 01:04; Start 04/26/19 at 12:30; Stop 04/29/19 at 04:56; Status DC Cholestyramine Resin (Questran Light) 4 gm BID@1000,2200 PO Last administered on 05/07/19at 10:23; Start 04/26/19 at 22:00 Hydroxyzine HCl (Atarax) 25 mg PRN Q6HRS PRN PO ITCHING Last administered on 05/06/19at 21:03; Start 04/26/19 at 12:30 Morphine Sulfate (Morphine Sulfate) 2 mg PRN Q6HRS PRN IV SEVERE PAIN 7-10; Start 04/26/19 at 12:30; Stop 04/26/19 at 12:42; Status DC Acetaminophen/ Hydrocodone Bitart (Lortab 5/325) 1 tab PRN Q6HRS PRN PO MILD PAIN / TEMP; Start 04/26/19 at 12:30; Stop 04/26/19 at 12:42; Status DC Gabapentin (Neurontin) 300 mg TID PO Last administered on 05/07/19at 21:07; Start 04/26/19 at 14:00 Lorazepam (Ativan) 0.5 mg PRN BID PRN PO AGITATION; Start 04/26/19 at 12:30 Sertraline HCl (Zoloft) 50 mg DAILY PO Last administered on 05/07/19at 09:02; Start 04/27/19 at 09:00 Tramadol HCl (Ultram) 50 mg TID PO Last administered on 04/29/19 09:09; Start 04/26/19 at 14:00; Stop 04/29/19 at 10:09; Status DC Acetaminophen (Tylenol) 325 mg PRN Q6HRS PRN PO MILD PAIN / TEMP; Start 04/26/19 at 12:30 Polyethylene Glycol (miraLAX PACKET) 17 gm DAILY PO Last administered on 05/07/19at 09:02; Start 04/27/19 at 09:00 Magnesium Hydroxide (Milk Of Magnesia) 2,400 mg PRN DAILY PRN PO CONSTIPATION Last administered on 04/29/19 02:34; Start 04/26/19 at 12:30 Acetaminophen/ Hydrocodone Bitart (Lortab 5/325) 1 tab PRN Q4HRS PRN PO MODERATE PAIN Last administered on 05/05/19 08:41; Start 04/26/19 at 12:45 Morphine Sulfate (Morphine Sulfate) 1 mg PRN Q4HRS PRN IV SEVERE PAIN 7-10 Last administered on 04/29/19 01:11; Start 04/26/19 at 12:45; Stop 04/29/19 at 04:56; Status DC Levofloxacin/ Dextrose 100 ml @ 100 mls/hr 1X ONCE IV Last administered on 08:31; Start 04/28/19 at 07:15; Stop 04/28/19 at 08:14; Status DC Ringer's Solution 1,000 ml @ 75 mls/hr 1X ONCE IV Last administered on 04/28/19at 14:43; Start 04/28/19 at 12:15; Stop 04/29/19 at 01:34; Status DC Iohexol (Omnipaque 300 Mg/ml) 100 ml STK-MED ONCE .ROUTE ; Start 04/28/19 at 13:24; Stop 04/28/19 at 13:25; Status DC Famotidine (Pepcid Vial) 20 mg STK-MED ONCE .ROUTE ; Start 04/28/19 at 14:12; Stop 04/28/19 at 14:13; Status DC Dexamethasone Sodium Phosphate (Decadron) 20 mg STK-MED ONCE .ROUTE ; Start 04/28/19 at 14:13; Stop 04/28/19 at 14:14; Status DC Lidocaine HCl (Lidocaine Pf 2% Vial) 5 ml STK-MED ONCE .ROUTE ; Start 04/28/19 at 15:00; Stop 04/28/19 at 15:01; Status DC Iohexol (Omnipaque 300 Mg/ml) 100 ml STK-MED ONCE IV Last administered on 04/28/19at 16:20; Start 04/28/19 at 16:20; Stop 04/28/19 at 16:48; Status DC Fentanyl Citrate (Fentanyl 2ml Vial) 25 mcg 1X ONCE IV Last administered on 04/28/19at 17:05; Start 04/28/19 at 17:00; Stop 04/28/19 at 17:01; Status DC Morphine Sulfate (Morphine Sulfate) 2 mg PRN Q4HRS PRN IV SEVERE PAIN 7-10; Start 04/29/19 at 05:00; Stop 05/08/19 at 08:25; Status DC Ondansetron HCl (Zofran) 8 mg PRN Q6HRS PRN IV NAUSEA/VOMITING, 1ST CHOICE Last administered on 05/03/19at 22:23; Start 04/29/19 at 05:00 Prochlorperazine Maleate (Compazine) 10 mg PRN Q6HRS PRN PO NAUSEA/VOMITING; Start 04/29/19 at 05:00 Tramadol HCl (Ultram) 50 mg QID PO Last administered on 05/08/19at 00:11; Start 04/29/19 at 13:00 Potassium Chloride/Dextrose/ Sod Cl 1,000 ml @ 75 mls/hr [id number] IV Last administered on 04/30/19at 02:53; Start 04/29/19 at 10:15; Stop 04/30/19 at 10:45; Status DC Amitriptyline HCl (Elavil) 25 mg QHS PO Last administered on 05/07/19at 21:07; Start 04/29/19 at 21:00 Phenylephrine HCl (PHENYLEPHRINE in 0.9% NACL PF) 1 mg STK-MED ONCE IV ; Start 04/28/19 at 14:00; Stop 04/29/19 at 13:10; Status DC Succinylcholine Chloride (Anectine) 200 mg STK-MED ONCE .ROUTE ; Start 04/28/19 at 14:00; Stop 04/29/19 at 13:10; Status DC Propofol (Diprivan) 200 mg STK-MED ONCE IV ; Start 04/28/19 at 14:00; Stop 04/29/19 at 13:10; Status DC Amino Acids/ Glycerin/ Electrolytes 1,000 ml @ 80 mls/hr [id number] IV Last administered on 05/09/19at 08:22; Start 04/30/19 at 10:45; Stop 05/09/19 at 21:59; Status DC Amlodipine Besylate (Norvasc) 5 mg DAILY PO Last administered on 05/05/19at 08:41; Start 05/01/19 at 13:00; Stop 05/05/19 at 10:06; Status DC Hydralazine HCl (Apresoline Inj) 10 mg PRN Q4HRS PRN IVP ELEVATED BP, SEE COMMENTS; Start 05/01/19 at 12:45 Amlodipine Besylate (Norvasc) 2.5 mg DAILY PO Last administered on 05/06/19at 09:28; Start 05/05/19 at 10:30; Stop 05/06/19 at 10:03; Status DC Cefoxitin Sodium (Mefoxin) 2 gm 1X PREOP IVP ; Start 05/08/19 at 08:00; Stop 05/08/19 at 10:15; Status DC Ondansetron HCl (Zofran) 4 mg PRN Q6HRS PRN IV NAUSEA/VOMITING; Start 05/08/19 at 07:00; Stop 05/08/19 at 20:00; Status DC Fentanyl Citrate (Fentanyl 2ml Vial) 25 mcg PRN Q5MIN PRN IV MILD PAIN 1-3 Last administered on 05/08/19at 15:37; Start 05/08/19 at 07:00; Stop 05/08/19 at 20:00; Status DC Fentanyl Citrate (Fentanyl 2ml Vial) 50 mcg PRN Q5MIN PRN IV MODERATE TO SEVERE PAIN; Start 05/08/19 at 07:00; Stop 05/08/19 at 20:00; Status DC Morphine Sulfate (Morphine Sulfate) 1 mg PRN Q10MIN PRN IV SEVERE PAIN 7-10; Start 05/08/19 at 07:00; Stop 05/08/19 at 20:00; Status DC Ringer's Solution 1,000 ml @ 30 mls/hr Q24H IV Last administered on 05/08/19at 07:28; Start 05/08/19 at 07:00; Stop 05/08/19 at 18:59; Status DC Hydromorphone HCl (Dilaudid) 0.5 mg PRN Q10MIN PRN IV SEV PAIN, Second choice; Start 05/08/19 at 07:00; Stop 05/08/19 at 20:00; Status DC Prochlorperazine Edisylate (Compazine) 5 mg PACU PRN PRN IV NAUSEA, MRX1 Last administered on 05/08/19at 15:37; Start 05/08/19 at 07:00; Stop 05/08/19 at 20:00; Status DC Fentanyl Citrate (Fentanyl 2ml Vial) 100 mcg STK-MED ONCE .ROUTE ; Start 05/08/19 at 07:06; Stop 05/08/19 at 07:07; Status DC Glycopyrrolate (Robinul) 1 mg STK-MED ONCE .ROUTE ; Start 05/08/19 at 07:07; Stop 05/08/19 at 07:07; Status DC Rocuronium [place] (Zemuron) 100 mg STK-MED ONCE .ROUTE ; Start 05/08/19 at 07:08; Stop 05/08/19 at 07:08; Status DC Neostigmine Methylsulfate (Neostigmine Methylsulfate) 5 mg STK-MED ONCE .ROUTE ; Start 05/08/19 at 07:08; Stop 05/08/19 at 07:08; Status DC Propofol 20 ml @ As Directed STK-MED ONCE IV ; Start 05/08/19 at 07:09; Stop 05/08/19 at 07:09; Status DC Lidocaine HCl (Lidocaine Pf 2% Vial) 5 ml STK-MED ONCE .ROUTE ; Start 05/08/19 at 07:09; Stop 05/08/19 at 07:09; Status DC Ondansetron HCl (Zofran) 4 mg STK-MED ONCE .ROUTE ; Start 05/08/19 at 07:09; Stop 05/08/19 at 07:09; Status DC Dexamethasone Sodium Phosphate (Decadron) 4 mg STK-MED ONCE .ROUTE ; Start 05/08/19 at 07:09; Stop 05/08/19 at 07:09; Status DC Phenylephrine HCl (Ricco-Synephrine Inj) 10 mg STK-MED ONCE .ROUTE ; Start 05/08/19 at 07:12; Stop 05/08/19 at 07:12; Status DC Sodium Chloride 39.95 ml/ Hydromorphone HCl 0.5 mg/ Ropivacaine 10 ml/ Epidural Dosage Infused (Pha) 50 ml @ 8 mls/hr CONT PRN EPID PER PROTOCOL Last administered on 05/10/19at 09:07; Start 05/08/19 at 09:00 Fentanyl Citrate (Fentanyl 2ml Vial) 100 mcg STK-MED ONCE .ROUTE ; Start 05/08/19 at 08:25; Stop 05/08/19 at 08:25; Status DC Ephedrine Sulfate (ePHEDrine PF IN SALINE SYRINGE) 50 mg STK-MED ONCE IV ; Start 05/08/19 at 08:37; Stop 05/08/19 at 08:37; Status DC Cefoxitin Sodium (Mefoxin) 2 gm 1X PREOP IVP ; Start 05/08/19 at 10:15 Cefoxitin Sodium (Mefoxin) 2 gm 1X ONCE IVP Last administered on 05/08/19at 12:31; Start 05/08/19 at 12:30; Stop 05/08/19 at 12:31; Status DC Cefoxitin Sodium (Mefoxin) 1 gm STK-MED ONCE IVP ; Start 05/08/19 at 13:51; Stop 05/08/19 at 13:52; Status DC Famotidine (Pepcid Vial) 20 mg DAILY IVP Last administered on 05/09/19at 08:22; Start 05/08/19 at 21:00; Stop 05/09/19 at 16:20; Status DC Heparin Sodium (Porcine) (Heparin Sodium) 5,000 unit Q12HR SQ Last administered on 05/09/19at 21:00; Start 05/08/19 at 14:30 Sodium Chloride (Normal Saline Flush) 3 ml QSHIFT PRN IV AFTER MEDS AND BLOOD DRAWS; Start 05/08/19 at 14:30 Ringer's Solution 1,000 ml @ 100 mls/hr Q10H IV Last administered on 05/09/19at 18:58; Start 05/08/19 at 14:18; Stop 05/09/19 at 19:29; Status DC Naloxone HCl (Narcan) 0.4 mg PRN Q2MIN PRN IV SEE INSTRUCTIONS; Start 05/08/19 at 14:30 Sodium Chloride 1,000 ml @ 25 mls/hr Q24H IV ; Start 05/08/19 at 14:18 Ondansetron HCl (Zofran) 4 mg PRN Q6HRS PRN IV NAUESA, 1ST CHOICE; Start 05/08/19 at 14:30 Fentanyl Citrate (Fentanyl 2ml Vial) 100 mcg STK-MED ONCE .ROUTE ; Start 05/08/19 at 14:29; Stop 05/08/19 at 14:29; Status DC Sevoflurane (Ultane) 90 ml STK-MED ONCE IH ; Start 05/08/19 at 14:44; Stop 05/08/19 at 14:44; Status DC Norepinephrine Bitartrate 250 ml @ 13.438 mls/ hr CONT PRN IV SEE I/O RECORD Last administered on 05/09/19at 23:49; Start 05/08/19 at 18:45 Ringer's Solution 500 ml @ 500 mls/hr 1X ONCE IV Last administered on 05/08/19at 19:22; Start 05/08/19 at 18:45; Stop 05/08/19 at 19:44; Status DC Ringer's Solution 500 ml @ 500 mls/hr 1X ONCE IV Last administered on 05/09/19at 03:39; Start 05/09/19 at 03:30; Stop 05/09/19 at 04:29; Status DC Ringer's Solution 500 ml @ 500 mls/hr 1X ONCE IV Last administered on 05/09/19at 10:14; Start 05/09/19 at 08:15; Stop 05/09/19 at 09:14; Status DC Info (Tpn Per Pharmacy) 1 each PRN DAILY PRN MC SEE COMMENTS Last administered on 05/10/19at 11:00; Start 05/09/19 at 13:00 Sodium Acetate 90 meq/Potassium Chloride 50 meq/ Potassium Phosphate 13.6 mmol/Magnesium Sulfate 8 meq/ Calcium Gluconate 10 meq/ Multivitamins 10 ml/Chromium/ Copper/Manganese/ Seleni/Zn 1 ml/ Total Parenteral Nutrition/Amino Acids/Dextrose/ Fat Emulsion Intravenous 1,512 ml @ 63 mls/hr TPN CONT IV Last administered on 05/09/19at 21:00; Start 05/09/19 at 22:00; Stop 05/10/19 at 21:59 Info (Tpn Per Pharmacy) 1 each PRN DAILY PRN MC SEE COMMENTS; Start 05/09/19 at 14:30; Status UNV Pantoprazole Sodium (PROTONIX VIAL for IV PUSH) 40 mg [id number] IVP Last administered on 05/10/19at 05:21; Start 05/09/19 at 18:00 Albumin Human 500 ml @ 125 mls/hr 1X ONCE IV Last administered on 05/09/19at 17:33; Start 05/09/19 at 17:30; Stop 05/09/19 at 21:29; Status DC Diphenhydramine HCl (Benadryl) 12.5 mg PRN Q6HRS PRN IVP ITCHING Last administered on 05/09/19at 18:37; Start 05/09/19 at 18:30 Acetaminophen (Tylenol Supp) 650 mg PRN Q8HRS PRN MO MILD PAIN / TEMP; Start 05/09/19 at 18:30 Potassium Phosphate 13.6 mmol/Dextrose 104.5333 ml @ 52.267 m... Q2H IV Last administered on 05/10/19at 09:14; Start 05/10/19 at 09:00; Stop 05/10/19 at 12:59 Active Scripts Active Zoloft (Sertraline Hcl) 50 Mg Tablet 50 Mg PO DAILY [Polyethylene Glycol 3350] 17 GM Packet 17 Gm PO DAILY [Oxycodone Hcl/Acetaminophen] 1 TAB Tablet 1 Tab PO PRN Q4HRS PRN Neurontin (Gabapentin) 300 Mg Capsule 300 Mg PO TID [Amoxicillin/Potassium Clav] 1 TAB Tablet 1 Tab PO BID [Amitriptyline Hcl] 50 MG Tablet 50 Mg PO QHS Lipitor (Atorvastatin Calcium) 10 Mg Tablet 10 Mg PO QHS Vitals/I & O Vital Sign - Last 24 Hours 05/09/19 05/09/19 05/09/19 05/09/19 12:00 12:00 13:00 14:00 Temp 99.0 99.0 Pulse 94 97 104 Resp 14 15 21 B/P (MAP) 100/59 (73) 98/56 (70) 101/77 (85) Pulse Ox 99 95 O2 Delivery Nasal Cannula Nasal Cannula Nasal Cannula Nasal Cannula O2 Flow Rate 2.0 2.0 2.0 2.0 05/09/19 05/09/19 05/09/19 05/09/19 15:16 16:00 16:05 17:00 Temp 99.4 99.4 Pulse 99 96 92 Resp 20 28 30 B/P (MAP) 107/59 (75) 103/47 (65) 94/48 (63) Pulse Ox 98 96 98 O2 Delivery Nasal Cannula Nasal Cannula Nasal Cannula Nasal Cannula O2 Flow Rate 2.0 2.0 2.0 2.0 05/09/19 05/09/19 05/09/19 05/09/19 18:00 19:00 19:15 19:30 Temp 99.0 99.0 Pulse 92 96 94 96 Resp 25 20 B/P (MAP) 106/62 (77) 98/55 (69) 89/48 (62) 94/48 (63) Pulse Ox 96 94 O2 Delivery Nasal Cannula Nasal Cannula O2 Flow Rate 2.0 2.0 05/09/19 05/09/19 05/09/19 05/09/19 19:45 20:00 20:15 20:23 Pulse 94 92 92 Resp 20 B/P (MAP) 81/51 (61) 87/54 (65) 98/53 (68) Pulse Ox 94 O2 Delivery Nasal Cannula Nasal Cannula O2 Flow Rate 2.0 2.0 05/09/19 05/09/19 05/09/19 05/09/19 20:30 20:45 21:00 21:15 Pulse 94 102 96 96 Resp 18 B/P (MAP) 99/56 (70) 91/62 (72) 97/63 (74) 98/57 (71) Pulse Ox 92 O2 Delivery Nasal Cannula O2 Flow Rate 2.0 05/09/19 05/09/19 05/09/19 05/09/19 21:30 22:00 22:00 22:15 Pulse 92 98 92 Resp 16 16 B/P (MAP) 97/52 (67) 111/53 (72) 107/58 (74) Pulse Ox 92 O2 Delivery Nasal Cannula O2 Flow Rate 2.0 05/09/19 05/09/19 05/09/19 05/09/19 22:30 22:45 23:00 23:00 Pulse 92 94 97 Resp 16 B/P (MAP) 102/57 (72) 91/48 (62) 90/55 (67) Pulse Ox 93 O2 Delivery Nasal Cannula O2 Flow Rate 2.0 05/09/19 05/09/19 05/09/19 05/09/19 23:15 23:30 23:37 23:50 Pulse 96 94 96 B/P (MAP) 101/53 (69) 92/50 (64) 100/54 (69) O2 Delivery Nasal Cannula O2 Flow Rate 2.0 05/10/19 05/10/19 05/10/19 05/10/19 00:01 00:05 00:23 01:00 Temp 100.0 100.0 Pulse 96 92 Resp 17 B/P (MAP) 95/43 (60) 92/46 (61) Pulse Ox 91 92 O2 Delivery Nasal Cannula Nasal Cannula O2 Flow Rate 2.0 2.0 05/10/19 05/10/19 05/10/19 05/10/19 02:06 03:00 04:05 04:15 Temp 99.1 99.1 Pulse 93 96 93 Resp 16 20 20 B/P (MAP) 106/61 (76) 118/66 (83) 118/67 (84) Pulse Ox 94 93 95 O2 Delivery Nasal Cannula Nasal Cannula Nasal Cannula Nasal Cannula O2 Flow Rate 2.0 2.0 2.0 2.0 05/10/19 05/10/19 05/10/19 05/10/19 05:00 06:04 07:00 08:00 Temp 98.8 98.8 Pulse 89 86 84 86 Resp 18 16 B/P (MAP) 120/66 (84) 113/66 (82) 113/64 (80) 119/65 (83) Pulse Ox 95 92 96 93 O2 Delivery Nasal Cannula Nasal Cannula Nasal Cannula Nasal Cannula O2 Flow Rate 2.0 2.0 2.0 2.0 05/10/19 05/10/19 05/10/19 08:00 09:00 10:00 Temp 98.8 98.8 Pulse 90 80 Resp 16 B/P (MAP) 118/67 (84) 113/59 (77) Pulse Ox 95 96 O2 Delivery Nasal Cannula Nasal Cannula Nasal Cannula O2 Flow Rate 2.0 2.0 2.0 Intake and Output 05/09/19 05/09/19 05/10/19 15:00 23:00 07:00 Intake Total 500 ml 2220 ml 580 ml Output Total 285 ml 780 ml 710 ml Balance 215 ml 1440 ml -130 ml Problem List Problems Medical Problems: (1) Acute hepatitis Status: Acute (2) Epigastric pain Status: Acute (3) Generalized pruritus Status: Acute (4) Obstructive jaundice Status: Acute Assessment S/P Whipple,- medical therapy and support until post-op ileus resolves, await path staging MOSHE BIRMINGHAM MD May 10, 2019 11:10
--- NOTE | 2019-05-10 11:17 | PDOC ---
PROGRESS NOTES Subjective Subjective pt has more pain Objective Objective Vital Signs Date Time Temp Pulse Resp B/P (MAP) Pulse Ox O2 Delivery O2 Flow Rate FiO2 05/10/19 10:00 80 16 113/59 (77) 96 Nasal Cannula 2.0 05/10/19 09:00 98.8 98.8 Intake and Output 05/10/19 07:00 Intake Total 3300 ml Output Total 1775 ml Balance 1525 ml Intake Oral 0 ml IV Total 3300 ml Output Urine Total 1495 ml Drainage Total 280 ml Physical Exam Abdomen: Other (S/P a Whipple , drains and dressings) Heart: Regular rate Extremities: No edema General: moderate distress HEENT: Atraumatic Lungs: Clear to auscultation MUSCULOSKELETAL: No deformity, Osteoarthritic changes both hands Neck: Supple Neuro: Normal speech Psych/Mental Status: Mental status NL Skin: No rashes COMMENT central line Diagnosis Problem List Problems Medical Problems: (1) Acute hepatitis Status: Acute (2) Epigastric pain Status: Acute (3) Generalized pruritus Status: Acute (4) Obstructive jaundice Status: Acute Assessment Assessment Problems Medical Problems: (1) Acute hepatitis Status: Acute (2) Epigastric pain Status: Acute (3) Generalized pruritus Status: Acute (4) Obstructive jaundice Status: Acute Problems: Hypotension obstructive jaundice Pancreatic cancer. mid CBD stricture dilated. brushings suspicious for adenocarcinoma MRCP shows stricture by pancreatic head PLAN: Procedure Performed:05/08/19 whipple procedure (specifically: pyloric sparing, pancreaticogastrostomy), G- tube placement .POD #2 ICU+CAN TECHNICIAN for pain control TPN+central line placed cardiology consult/ECHO good LVF drains multiple spoke with surgeon+cardiology Low dose Levophed for hypotension hb 7.3 , phos 1.4 Plan Plan of Care Problems Medical Problems: (1) Acute hepatitis Status: Acute (2) Epigastric pain Status: Acute (3) Generalized pruritus Status: Acute (4) Obstructive jaundice Status: Acute Comment Review of Relevant I have reviewed the following items betty (where applicable) has been applied. Labs Laboratory Tests Test 05/10/19 05:30 White Blood Count 10.6 x10^3/uL (4.0-11.0) Red Blood Count 2.39 x10^6/uL (3.50-5.40) Hemoglobin 7.6 g/dL (12.0-15.5) Hematocrit 22.5 % (36.0-47.0) Mean Corpuscular Volume 94 fL (79-100) Mean Corpuscular Hemoglobin 32 pg (25-35) Mean Corpuscular Hemoglobin Concent 34 g/dL (31-37) Red Cell Distribution Width 15.9 % (11.5-14.5) Platelet Count 198 x10^3/uL (140-400) Neutrophils (%) (Auto) 81 % (31-73) Lymphocytes (%) (Auto) 11 % (24-48) Monocytes (%) (Auto) 7 % (0-9) Eosinophils (%) (Auto) 1 % (0-3) Basophils (%) (Auto) 0 % (0-3) Neutrophils # (Auto) 8.6 x10^3/uL (1.8-7.7) Lymphocytes # (Auto) 1.2 x10^3/uL (1.0-4.8) Monocytes # (Auto) 0.7 x10^3/uL (0.0-1.1) Eosinophils # (Auto) 0.1 x10^3/uL (0.0-0.7) Basophils # (Auto) 0.0 x10^3/uL (0.0-0.2) Sodium Level 139 mmol/L (136-145) Potassium Level 3.9 mmol/L (3.5-5.1) Chloride Level 107 mmol/L (98-107) Carbon Dioxide Level 27 mmol/L (21-32) Anion Gap 5 (6-14) Blood Urea Nitrogen 16 mg/dL (7-20) Creatinine 1.0 mg/dL (0.6-1.0) Estimated GFR (Cockcroft-Gault) 53.2 Glucose Level 192 mg/dL (70-99) Calcium Level 8.0 mg/dL (8.5-10.1) Phosphorus Level 1.4 mg/dL (2.6-4.7) Magnesium Level 1.9 mg/dL (1.8-2.4) Microbiology 04/26/19 Urine Culture - Final, Complete 04/26/19 Urine Culture Result 1 (QUEENIE) - Final, Complete Medications Current Medications Acetaminophen (Tylenol Supp) 650 mg PRN Q8HRS PRN AR MILD PAIN / TEMP; Start 05/09/19 at 18:30 Albumin Human 500 ml @ 125 mls/hr 1X ONCE IV Last administered on 05/09/19at 17:33; Start 05/09/19 at 17:30; Stop 05/09/19 at 21:29; Status DC Diphenhydramine HCl (Benadryl) 12.5 mg PRN Q6HRS PRN IVP ITCHING Last administe red on 05/09/19at 18:37; Start 05/09/19 at 18:30 Info (Tpn Per Pharmacy) 1 each PRN DAILY PRN MC SEE COMMENTS Last administered on 05/10/19at 11:00; Start 05/09/19 at 13:00 Info (Tpn Per Pharmacy) 1 each PRN DAILY PRN MC SEE COMMENTS; Start 05/09/19 at 14:30; Status UNV Pantoprazole Sodium (PROTONIX VIAL for IV PUSH) 40 mg [id number] IVP Last administered on 05/10/19at 05:21; Start 05/09/19 at 18:00 Potassium Phosphate 13.6 mmol/Dextrose 104.5333 ml @ 52.267 m... Q2H IV Last administered on 05/10/19at 09:14; Start 05/10/19 at 09:00; Stop 05/10/19 at 12:59 Sodium Acetate 90 meq/Potassium Chloride 50 meq/ Potassium Phosphate 13.6 mmol/Magnesium Sulfate 8 meq/ Calcium Gluconate 10 meq/ Multivitamins 10 ml/Chromium/ Copper/Manganese/ Seleni/Zn 1 ml/ Total Parenteral Nutrition/Amino Acids/Dextrose/ Fat Emulsion Intravenous 1,512 ml @ 63 mls/hr TPN CONT IV Last administered on 05/09/19at 21:00; Start 05/09/19 at 22:00; Stop 05/10/19 at 21:59 Vitals/I & O Vital Sign - Last 24 Hours 05/09/19 05/09/19 05/09/19 05/09/19 12:00 12:00 13:00 14:00 Temp 99.0 99.0 Pulse 94 97 104 Resp 14 15 21 B/P (MAP) 100/59 (73) 98/56 (70) 101/77 (85) Pulse Ox 99 95 O2 Delivery Nasal Cannula Nasal Cannula Nasal Cannula Nasal Cannula O2 Flow Rate 2.0 2.0 2.0 2.0 05/09/19 05/09/19 05/09/19 05/09/19 15:16 16:00 16:05 17:00 Temp 99.4 99.4 Pulse 99 96 92 Resp 20 28 30 B/P (MAP) 107/59 (75) 103/47 (65) 94/48 (63) Pulse Ox 98 96 98 O2 Delivery Nasal Cannula Nasal Cannula Nasal Cannula Nasal Cannula O2 Flow Rate 2.0 2.0 2.0 2.0 05/09/19 05/09/19 05/09/19 05/09/19 18:00 19:00 19:15 19:30 Temp 99.0 99.0 Pulse 92 96 94 96 Resp 25 20 B/P (MAP) 106/62 (77) 98/55 (69) 89/48 (62) 94/48 (63) Pulse Ox 96 94 O2 Delivery Nasal Cannula Nasal Cannula O2 Flow Rate 2.0 2.0 05/09/19 05/09/19 05/09/19 05/09/19 19:45 20:00 20:15 20:23 Pulse 94 92 92 Resp 20 B/P (MAP) 81/51 (61) 87/54 (65) 98/53 (68) Pulse Ox 94 O2 Delivery Nasal Cannula Nasal Cannula O2 Flow Rate 2.0 2.0 05/09/19 05/09/19 05/09/19 05/09/19 20:30 20:45 21:00 21:15 Pulse 94 102 96 96 Resp 18 B/P (MAP) 99/56 (70) 91/62 (72) 97/63 (74) 98/57 (71) Pulse Ox 92 O2 Delivery Nasal Cannula O2 Flow Rate 2.0 05/09/19 05/09/19 05/09/19 05/09/19 21:30 22:00 22:00 22:15 Pulse 92 98 92 Resp 16 16 B/P (MAP) 97/52 (67) 111/53 (72) 107/58 (74) Pulse Ox 92 O2 Delivery Nasal Cannula O2 Flow Rate 2.0 05/09/19 05/09/19 05/09/19 05/09/19 22:30 22:45 23:00 23:00 Pulse 92 94 97 Resp 16 B/P (MAP) 102/57 (72) 91/48 (62) 90/55 (67) Pulse Ox 93 O2 Delivery Nasal Cannula O2 Flow Rate 2.0 05/09/19 05/09/19 05/09/19 05/09/19 23:15 23:30 23:37 23:50 Pulse 96 94 96 B/P (MAP) 101/53 (69) 92/50 (64) 100/54 (69) O2 Delivery Nasal Cannula O2 Flow Rate 2.0 05/10/19 05/10/19 05/10/19 05/10/19 00:01 00:05 00:23 01:00 Temp 100.0 100.0 Pulse 96 92 Resp 17 B/P (MAP) 95/43 (60) 92/46 (61) Pulse Ox 91 92 O2 Delivery Nasal Cannula Nasal Cannula O2 Flow Rate 2.0 2.0 05/10/19 05/10/19 05/10/19 05/10/19 02:06 03:00 04:05 04:15 Temp 99.1 99.1 Pulse 93 96 93 Resp 16 20 20 B/P (MAP) 106/61 (76) 118/66 (83) 118/67 (84) Pulse Ox 94 93 95 O2 Delivery Nasal Cannula Nasal Cannula Nasal Cannula Nasal Cannula O2 Flow Rate 2.0 2.0 2.0 2.0 05/10/19 05/10/19 05/10/19 05/10/19 05:00 06:04 07:00 08:00 Temp 98.8 98.8 Pulse 89 86 84 86 Resp 18 16 B/P (MAP) 120/66 (84) 113/66 (82) 113/64 (80) 119/65 (83) Pulse Ox 95 92 96 93 O2 Delivery Nasal Cannula Nasal Cannula Nasal Cannula Nasal Cannula O2 Flow Rate 2.0 2.0 2.0 2.0 05/10/19 05/10/19 05/10/19 08:00 09:00 10:00 Temp 98.8 98.8 Pulse 90 80 Resp 16 B/P (MAP) 118/67 (84) 113/59 (77) Pulse Ox 95 96 O2 Delivery Nasal Cannula Nasal Cannula Nasal Cannula O2 Flow Rate 2.0 2.0 2.0 Intake and Output 05/09/19 05/09/19 05/10/19 15:00 23:00 07:00 Intake Total 500 ml 2220 ml 580 ml Output Total 285 ml 780 ml 710 ml Balance 215 ml 1440 ml -130 ml KODURI,VINAYA K MD May 10, 2019 11:17
--- NOTE | 2019-05-10 11:57 | NUR ---
Pharmacy TPN Dosing Note S: ANDREW LA is a 83 year old F Currently receiving Central Continuous TPN started 05/09/19 B:Pertinent PMH: NPO/POST IPP Height: 5 feet, 3 inches Weight: 73.819767 kg Current diet: PPN LABS: Sodium: 139 Potassium: 3.9 Chloride: 107 Calcium: 8.0 Corrected Calcium: 9.52 Magnesium: 1.9 CO2: 27 SCr: 1 Glucose: 192 Albumin: 2.1 AST: 239 ALT: 277 TPN FORMULA: TPN TYPE: Central Continuous AMINO ACIDS: 85 gm DEXTROSE: 250 gm LIPIDS: 20 gm SODIUM CHLORIDE: - mEq SODIUM ACETATE: 90 mEq SODIUM PHOSPHATE: - mmol POTASSIUM CHLORIDE: 50 mEq POTASSIUM ACETATE: - mEq POTASSIUM PHOSPHATE: 18 mmol MAGNESIUM: 10 mEq CALCIUM: 10 mEq INSULIN: - units MULTIPLE VITAMIN: 10 ml TRACE ELEMENTS: 1 ml(s) TPN PLAN: -Macros per dietary recommendations -Potassium decreased to 3.9 this AM and Phos 1.4 this AM, bolus of KPhos given outside of TPN. KPhos increased in TPN from 13.6 mmol to 18 mmol. -Mag lab this AM 1.9. Mag increased slightly in TPN. -Consider addition of SSI -BMP, Mag and Phos ordered for 05/11/19 R: Continue TPN increased Mag and KPhos in TPN Will monitor electrolytes, glucose, and tolerance to TPN. RDAHA OROZCO, [facility], 05/10/19 [id number]
--- NOTE | 2019-05-10 12:09 | PDOC ---
SURGICAL PROGRESS NOTE Subjective resting incisional pain some itching last nigh Vital Signs Vital Signs Date Time Temp Pulse Resp B/P (MAP) Pulse Ox O2 Delivery O2 Flow Rate FiO2 05/10/19 11:00 98.6 88 14 118/64 (82) 95 Nasal Cannula 2.0 98.6 I&O Intake and Output 05/10/19 07:01 Intake Total 3300 ml Output Total 1775 ml Balance 1525 ml Intake Oral 0 ml IV Total 3300 ml Output Urine Total 1495 ml Drainage Total 280 ml PATIENT HAS A MACEDO: Yes General: Alert, Cooperative HEENT: Other (NG in place) Abdomen: Soft, Other (drains serosang, dressing dry) Labs Laboratory Tests Test 05/09/19 03:15 05/10/19 05:30 White Blood Count 12.2 x10^3/uL (4.0-11.0) 10.6 x10^3/uL (4.0-11.0) Red Blood Count 3.28 x10^6/uL (3.50-5.40) 2.39 x10^6/uL (3.50-5.40) Hemoglobin 10.3 g/dL (12.0-15.5) 7.6 g/dL (12.0-15.5) Hematocrit 31.3 % (36.0-47.0) 22.5 % (36.0-47.0) Mean Corpuscular Volume 95 fL (79-100) 94 fL (79-100) Mean Corpuscular Hemoglobin 31 pg (25-35) 32 pg (25-35) Mean Corpuscular Hemoglobin Concent 33 g/dL (31-37) 34 g/dL (31-37) Red Cell Distribution Width 16.9 % (11.5-14.5) 15.9 % (11.5-14.5) Platelet Count 356 x10^3/uL (140-400) 198 x10^3/uL (140-400) Neutrophils (%) (Auto) 76 % (31-73) 81 % (31-73) Lymphocytes (%) (Auto) 15 % (24-48) 11 % (24-48) Monocytes (%) (Auto) 8 % (0-9) 7 % (0-9) Eosinophils (%) (Auto) 0 % (0-3) 1 % (0-3) Basophils (%) (Auto) 1 % (0-3) 0 % (0-3) Neutrophils # (Auto) 9.3 x10^3/uL (1.8-7.7) 8.6 x10^3/uL (1.8-7.7) Lymphocytes # (Auto) 1.8 x10^3/uL (1.0-4.8) 1.2 x10^3/uL (1.0-4.8) Monocytes # (Auto) 1.0 x10^3/uL (0.0-1.1) 0.7 x10^3/uL (0.0-1.1) Eosinophils # (Auto) 0.0 x10^3/uL (0.0-0.7) 0.1 x10^3/uL (0.0-0.7) Basophils # (Auto) 0.1 x10^3/uL (0.0-0.2) 0.0 x10^3/uL (0.0-0.2) Sodium Level 140 mmol/L (136-145) 139 mmol/L (136-145) Potassium Level 4.5 mmol/L (3.5-5.1) 3.9 mmol/L (3.5-5.1) Chloride Level 108 mmol/L (98-107) 107 mmol/L (98-107) Carbon Dioxide Level 25 mmol/L (21-32) 27 mmol/L (21-32) Anion Gap 7 (6-14) 5 (6-14) Blood Urea Nitrogen 18 mg/dL (7-20) 16 mg/dL (7-20) Creatinine 1.4 mg/dL (0.6-1.0) 1.0 mg/dL (0.6-1.0) Estimated GFR (Cockcroft-Gault) 36.1 53.2 BUN/Creatinine Ratio 13 (6-20) Glucose Level 157 mg/dL (70-99) 192 mg/dL (70-99) Calcium Level 7.9 mg/dL (8.5-10.1) 8.0 mg/dL (8.5-10.1) Total Bilirubin 2.0 mg/dL (0.2-1.0) Aspartate Amino Transf (AST/SGOT) 239 U/L (15-37) Alanine Aminotransferase (ALT/SGPT) 277 U/L (14-59) Alkaline Phosphatase 162 U/L (46-116) Total Protein 5.7 g/dL (6.4-8.2) Albumin 2.1 g/dL (3.4-5.0) Albumin/Globulin Ratio 0.6 (1.0-1.7) Phosphorus Level 1.4 mg/dL (2.6-4.7) Magnesium Level 1.9 mg/dL (1.8-2.4) Laboratory Tests Test 05/10/19 05:30 White Blood Count 10.6 x10^3/uL (4.0-11.0) Red Blood Count 2.39 x10^6/uL (3.50-5.40) Hemoglobin 7.6 g/dL (12.0-15.5) Hematocrit 22.5 % (36.0-47.0) Mean Corpuscular Volume 94 fL (79-100) Mean Corpuscular Hemoglobin 32 pg (25-35) Mean Corpuscular Hemoglobin Concent 34 g/dL (31-37) Red Cell Distribution Width 15.9 % (11.5-14.5) Platelet Count 198 x10^3/uL (140-400) Neutrophils (%) (Auto) 81 % (31-73) Lymphocytes (%) (Auto) 11 % (24-48) Monocytes (%) (Auto) 7 % (0-9) Eosinophils (%) (Auto) 1 % (0-3) Basophils (%) (Auto) 0 % (0-3) Neutrophils # (Auto) 8.6 x10^3/uL (1.8-7.7) Lymphocytes # (Auto) 1.2 x10^3/uL (1.0-4.8) Monocytes # (Auto) 0.7 x10^3/uL (0.0-1.1) Eosinophils # (Auto) 0.1 x10^3/uL (0.0-0.7) Basophils # (Auto) 0.0 x10^3/uL (0.0-0.2) Sodium Level 139 mmol/L (136-145) Potassium Level 3.9 mmol/L (3.5-5.1) Chloride Level 107 mmol/L (98-107) Carbon Dioxide Level 27 mmol/L (21-32) Anion Gap 5 (6-14) Blood Urea Nitrogen 16 mg/dL (7-20) Creatinine 1.0 mg/dL (0.6-1.0) Estimated GFR (Cockcroft-Gault) 53.2 Glucose Level 192 mg/dL (70-99) Calcium Level 8.0 mg/dL (8.5-10.1) Phosphorus Level 1.4 mg/dL (2.6-4.7) Magnesium Level 1.9 mg/dL (1.8-2.4) Problem List Problems Medical Problems: (1) Acute hepatitis Status: Acute (2) Epigastric pain Status: Acute (3) Generalized pruritus Status: Acute (4) Obstructive jaundice Status: Acute Assessment/Plan supportive measures bowel rest TRUNG RUSH APRN May 10, 2019 12:08
[2019-05-10] MEDS: IV NORMAL SALINE 1000ML BAG 1,000 ML IV SCH (14:18)
[2019-05-10] MEDS: diphenhydrAMINE 50 MG/ML VIAL IVP PRN (18:44)
[2019-05-10] MEDS: AMITRIPTYLINE HCL 25 MG TABLET. PO SCH (21:00)
[2019-05-10] MEDS ORDERED: TOTAL PARENTERAL NUTRITION IV SCH ×10 (22:00)
[2019-05-10] MEDS ORDERED: AMINO ACID IV SCH ×10 (22:00)
[2019-05-10] MEDS ORDERED: [UNRECOGNIZED DRUG - OTHER] IV SCH ×10 (22:00)
[2019-05-10] MEDS ORDERED: DEXTROSE 70% IV SCH ×10 (22:00)
[2019-05-11] VITALS (19 sets, daily range): BP systolic 95–115; BP diastolic 56–69
[2019-05-11] MEDS: diphenhydrAMINE 50 MG/ML VIAL IVP PRN ×2 (00:19→18:40)
[2019-05-11] MEDS: ROPIVACAINE 0.5% EPID PRN ×4 (05:06→20:45)
[2019-05-11] MEDS: PANTOPRAZOLE IV PUSH 40 MG VIAL. IVP SCH ×2 (05:06→18:41)
[2019-05-11] MEDS: NORMAL SALINE EPID PRN ×4 (05:06→20:45)
[2019-05-11] MEDS: HYDROMORPHONE EPID PRN ×4 (05:06→20:45)
[2019-05-11] MEDS: [UNRECOGNIZED DRUG - OTHER] EPID PRN ×4 (05:06→20:45)
[2019-05-11] MEDS: SERTRALINE 50 MG TABLET. PO SCH (09:00)
[2019-05-11] MEDS: POLYETHYLENE GLYCOL 3350 17 GM PACKET. PO SCH (09:00)
[2019-05-11] MEDS: GABAPENTIN 300 MG CAPSULE. PO SCH ×3 (09:00→21:00)
[2019-05-11] MEDS: traMADol 50 MG TABLET PO SCH ×4 (09:00→21:00)
[2019-05-11 09:34] LABS: BASO # 0.1 x10^3/uL (0.0-0.2); BASO % 1 % (0-3); EOS # 0.3 x10^3/uL (0.0-0.7); EOS % 3 % (0-3); HEMATOCRIT 22.6 % (36.0-47.0); HEMOGLOBIN 7.6 g/dL (12.0-15.5); LYMPH # 1.3 x10^3/uL (1.0-4.8); LYMPH % 13 % (24-48); MEAN CORPUSCULAR HEMOGLOBIN 32 pg (25-35); MEAN CORPUSCULAR HGB CONC 33 g/dL (31-37); MEAN CORPUSCULAR VOLUME 95 fL (79-100); MONO # 0.7 x10^3/uL (0.0-1.1); MONO % 7 % (0-9); NEUT # 7.9 x10^3/uL (1.8-7.7); NEUT % 76 % (31-73); PLATELET COUNT 223 x10^3/uL (140-400); RED BLOOD COUNT 2.39 x10^6/uL (3.50-5.40); WHITE BLOOD COUNT 10.4 x10^3/uL (4.0-11.0)
[2019-05-11 09:46] LABS: ALBUMIN 1.7 g/dL (3.4-5.0); ALBUMIN/GLOBULIN RATIO 0.5 (1.0-1.7); CREATININE 0.9 mg/dL (0.6-1.0); GFR 60.1; POTASSIUM 3.9 mmol/L (3.5-5.1); TOTAL BILIRUBIN 1.1 mg/dL (0.2-1.0); TOTAL PROTEIN 5.1 g/dL (6.4-8.2)
[2019-05-11] MEDS: CHOLESTYRAMINE/ASPARTAME 4 GM PACKET PO SCH ×2 (10:00→21:14)
[2019-05-11 10:45] LABS: MAGNESIUM 1.9 mg/dL (1.8-2.4); PHOSPHORUS 2.2 mg/dL (2.6-4.7)
--- NOTE | 2019-05-11 10:53 | PDOC ---
PROGRESS NOTES Subjective Subjective feels better today,off levophed Objective Objective Vital Signs Date Time Temp Pulse Resp B/P (MAP) Pulse Ox O2 Delivery O2 Flow Rate FiO2 05/11/19 10:00 82 26 98/58 (71) 96 Nasal Cannula 2.0 05/11/19 08:00 99.8 99.8 Intake and Output 05/11/19 07:00 Intake Total 2357.70 ml Output Total 4645 ml Balance -2287.30 ml IV Total 1695.70 ml Blood Product IV Normal Saline Flush 262 ml Other 400 ml Output Urine Total 4155 ml Drainage Total 490 ml Physical Exam Abdomen: Soft, Other (drains serosang, dressing dry) Heart: Regular rate Extremities: No edema General: Alert, Cooperative HEENT: Other (NG in place) Lungs: Clear to auscultation MUSCULOSKELETAL: No deformity, Osteoarthritic changes both hands Neck: Supple Neuro: Normal speech Psych/Mental Status: Mental status NL Skin: No rashes COMMENT central line present, lozano present Diagnosis Problem List Problems Medical Problems: (1) Acute hepatitis Status: Acute (2) Epigastric pain Status: Acute (3) Generalized pruritus Status: Acute (4) Obstructive jaundice Status: Acute Assessment Assessment Problems Medical Problems: (1) Acute hepatitis Status: Acute (2) Epigastric pain Status: Acute (3) Generalized pruritus Status: Acute (4) Obstructive jaundice Status: Acute Problems: Hypotension obstructive jaundice Pancreatic cancer. mid CBD stricture dilated. brushings suspicious for adenocarcinoma MRCP shows stricture by pancreatic head PLAN: Pt Off Levophed,BP improved. Procedure Performed:05/08/19 whipple procedure (specifically: pyloric sparing, pancreaticogastrostomy), G- tube placement TPN for nutrition PRO[employer] MANAGER [employer]ANCE for pain control POD #3, doing well TPN+central line placed cardiology consult/ECHO good LVF drains multiple hb 7.6 , phos 2.4, oter labs good LVF almost normal Plan Plan of Care Problems Medical Problems: (1) Acute hepatitis Status: Acute (2) Epigastric pain Status: Acute (3) Generalized pruritus Status: Acute (4) Obstructive jaundice Status: Acute Comment Review of Relevant I have reviewed the following items betty (where applicable) has been applied. Labs Laboratory Tests Test 05/10/19 22:06 05/11/19 05:00 05/11/19 05:04 Glucose (Fingerstick) 152 mg/dL (70-99) 202 mg/dL (70-99) White Blood Count 10.4 x10^3/uL (4.0-11.0) Red Blood Count 2.39 x10^6/uL (3.50-5.40) Hemoglobin 7.6 g/dL (12.0-15.5) Hematocrit 22.6 % (36.0-47.0) Mean Corpuscular Volume 95 fL (79-100) Mean Corpuscular Hemoglobin 32 pg (25-35) Mean Corpuscular Hemoglobin Concent 33 g/dL (31-37) Red Cell Distribution Width 16.0 % (11.5-14.5) Platelet Count 223 x10^3/uL (140-400) Neutrophils (%) (Auto) 76 % (31-73) Lymphocytes (%) (Auto) 13 % (24-48) Monocytes (%) (Auto) 7 % (0-9) Eosinophils (%) (Auto) 3 % (0-3) Basophils (%) (Auto) 1 % (0-3) Neutrophils # (Auto) 7.9 x10^3/uL (1.8-7.7) Lymphocytes # (Auto) 1.3 x10^3/uL (1.0-4.8) Monocytes # (Auto) 0.7 x10^3/uL (0.0-1.1) Eosinophils # (Auto) 0.3 x10^3/uL (0.0-0.7) Basophils # (Auto) 0.1 x10^3/uL (0.0-0.2) Sodium Level 137 mmol/L (136-145) Potassium Level 3.9 mmol/L (3.5-5.1) Chloride Level 104 mmol/L (98-107) Carbon Dioxide Level 26 mmol/L (21-32) Anion Gap 7 (6-14) Blood Urea Nitrogen 15 mg/dL (7-20) Creatinine 0.9 mg/dL (0.6-1.0) Estimated GFR (Cockcroft-Gault) 60.1 BUN/Creatinine Ratio 17 (6-20) Glucose Level 201 mg/dL (70-99) Calcium Level 8.0 mg/dL (8.5-10.1) Phosphorus Level 2.2 mg/dL (2.6-4.7) Magnesium Level 1.9 mg/dL (1.8-2.4) Total Bilirubin 1.1 mg/dL (0.2-1.0) Aspartate Amino Transf (AST/SGOT) 42 U/L (15-37) Alanine Aminotransferase (ALT/SGPT) 90 U/L (14-59) Alkaline Phosphatase 113 U/L (46-116) Total Protein 5.1 g/dL (6.4-8.2) Albumin 1.7 g/dL (3.4-5.0) Albumin/Globulin Ratio 0.5 (1.0-1.7) Microbiology 04/26/19 Urine Culture - Final, Complete 04/26/19 Urine Culture Result 1 (QUEENIE) - Final, Complete Medications Current Medications Sodium Acetate 90 meq/Potassium Chloride 50 meq/ Potassium Phosphate 18 mmol/ Magnesium Sulfate 10 meq/Calcium Gluconate 10 meq/ Multivitamins 10 ml/Chromium/ Copper/Manganese/ Seleni/Zn 1 ml/ Total Parenteral Nutrition/Amino Acids/Dextrose/ Fat Emulsion Intravenous 1,512 ml @ 63 mls/hr TPN CONT IV Last administered on 05/10/19at 21:32; Start 05/10/19 at 22:00; Stop 05/11/19 at 21:59 Vitals/I & O Vital Sign - Last 24 Hours 05/10/19 05/10/19 05/10/19 05/10/19 11:00 11:15 12:00 12:00 Temp 98.6 98.6 Pulse 88 78 82 Resp 14 19 B/P (MAP) 118/64 (82) 107/53 (71) 111/61 (78) Pulse Ox 95 96 O2 Delivery Nasal Cannula Nasal Cannula Nasal Cannula O2 Flow Rate 2.0 2.0 2.0 05/10/19 05/10/19 05/10/19 05/10/19 15:30 16:00 16:00 17:00 Temp 99.5 99.5 Pulse 82 82 79 Resp 16 16 B/P (MAP) 118/61 (80) 108/52 (70) 110/58 (75) Pulse Ox 96 97 O2 Delivery Nasal Cannula Nasal Cannula Nasal Cannula O2 Flow Rate 2.0 2.0 2.0 05/10/19 05/10/19 05/10/19 05/10/19 18:00 19:00 20:00 20:00 Temp 99.2 99.2 Pulse 83 83 84 Resp 16 16 16 B/P (MAP) 113/63 (80) 111/60 (77) 110/60 (77) Pulse Ox 95 95 95 O2 Delivery Nasal Cannula Nasal Cannula Nasal Cannula Nasal Cannula O2 Flow Rate 2.0 2.0 2.0 2.0 05/10/19 8// 8// 8// 20:30 21:00 21:09 22:00 Pulse 88 88 86 Resp 16 16 19 17 B/P (MAP) 113/63 (80) 112/52 (72) 115/60 (78) Pulse Ox 95 95 95 95 O2 Delivery Nasal Cannula Nasal Cannula Nasal Cannula Nasal Cannula O2 Flow Rate 2.0 2.0 2.0 2.0 05/10/05/10/ 8/18/ 8/ 23:00 23:59 00:01 01:00 Temp 98.9 98.9 Pulse 85 83 82 Resp 15 14 13 B/P (MAP) 110/59 (76) 95/61 (72) 104/61 (75) Pulse Ox 96 97 97 O2 Delivery Nasal Cannula Nasal Cannula Nasal Cannula Nasal Cannula O2 Flow Rate 2.0 2.0 2.0 2.0 05/11/1905/11/ 8/05/11/19 02:00 03:00 04:00 04:00 Temp 98.6 98.6 Pulse 89 83 87 Resp 19 19 13 B/P (MAP) 97/58 (71) 95/62 (73) 107/66 (80) Pulse Ox 97 95 95 O2 Delivery Nasal Cannula Nasal Cannula Nasal Cannula Nasal Cannula O2 Flow Rate 2.0 2.0 2.0 2.0 05/11/1905/11/05/11/19 05/11/19 05:00 06:00 07:00 08:00 Pulse 83 84 84 Resp 14 14 20 B/P (MAP) 105/60 (75) 106/62 (77) 112/60 (77) Pulse Ox 95 96 96 O2 Delivery Nasal Cannula Nasal Cannula Nasal Cannula Nasal Cannula O2 Flow Rate 2.0 2.0 2.0 2.0 05/11/1905/11/05/11/19 08:00 09:00 10:00 Temp 99.8 99.8 Pulse 82 82 82 Resp B/P (MAP) 105/58 (74) 109/62 (78) 98/58 (71) Pulse Ox 97 97 96 O2 Delivery Nasal Cannula Nasal Cannula Nasal Cannula O2 Flow Rate 2.0 2.0 2.0 Intake and Output 05/10/19 05/10/19 05/11/19 15:00 23:00 07:00 Intake Total 362 ml 494.7 ml 1501.00 ml Output Total 1050 ml 2950 ml 645 ml Balance -688 ml -2455.3 ml 856.00 ml BONNY BEST MD May 11, 2019 10:53
[2019-05-11] MEDS ORDERED: IV DEXTROSE 5% 250 ML BAG. IV PRN (11:30)
[2019-05-11] MEDS ORDERED: DEXTROSE 50% 25 GM / 50ML DISP.SYRIN. IV PRN (11:30)
[2019-05-11] MEDS ORDERED: POTASSIUM PHOSPHATE DIBASIC 13.6 MMOL in IV DEXTROSE 5% 100ML 100 ML IV SCH (11:30)
[2019-05-11] MEDS: HEPARIN for SUB-Q USE 5,000 UNIT/ML VIAL. SQ SCH ×2 (11:37→21:16)
[2019-05-11] MEDS: TPN PER PHARMACY MC PRN (11:45)
--- NOTE | 2019-05-11 11:47 | NUR ---
Pharmacy TPN Dosing Note S: ANDREW LA is a 83 year old F Currently receiving Central Continuous TPN started 05/09/19 B:Pertinent PMH: NPO/POST WHIPPLE Height: 5 feet, 3 inches Weight: 73.497470 kg Current diet: PPN LABS: Sodium: 137 Potassium: 3.9 Chloride: 104 Calcium: 8.0 Corrected Calcium: 9.84 Magnesium: 1.9 CO2: 26 SCr: 0.9 Glucose: 202 Albumin: 1.7 AST: 42 ALT: 90 TPN FORMULA: TPN TYPE: Central Continuous AMINO ACIDS: 85 gm DEXTROSE: 250 gm LIPIDS: 20 gm SODIUM CHLORIDE: - mEq SODIUM ACETATE: 90 mEq SODIUM PHOSPHATE: - mmol POTASSIUM CHLORIDE: 50 mEq POTASSIUM ACETATE: - mEq POTASSIUM PHOSPHATE: 24 mmol MAGNESIUM: 15 mEq CALCIUM: 10 mEq INSULIN: - units MULTIPLE VITAMIN: 10 ml TRACE ELEMENTS: 1 ml(s) TPN PLAN: -Macros per dietary recommendations -Potassium remains to 3.9 this AM and Phos 2.2 this AM, bolus of KPhos given outside of TPN. Continued concern for potential refeeding. KPhos increased in TPN to 24 mmol. -Mag lab remains 1.9. Mag increased in TPN. -SSI started per Dr. Key -BMP, Mag, Phos, and Triglycerides ordered for 05/12/19. R: Continue TPN with increase in KPhos and Mag Will monitor electrolytes, glucose, and tolerance to TPN. RADHA OROZCO, [facility], 05/11/19 [id number]
--- NOTE | 2019-05-11 12:12 | PDOC ---
G I PROGRESS NOTE Reason for Follow-up S/P Whipple Subjective Feeling better today Physical Exam Lungs decreased BS CV S1 S2 ABd -BS, incisions intact Review of Relevant I have reviewed the following items betty (where applicable) has been applied. Labs Laboratory Tests Test 05/10/19 05:30 05/10/19 22:06 05/11/19 05:00 05/11/19 05:04 White Blood Count 10.6 x10^3/uL (4.0-11.0) 10.4 x10^3/uL (4.0-11.0) Red Blood Count 2.39 x10^6/uL (3.50-5.40) 2.39 x10^6/uL (3.50-5.40) Hemoglobin 7.6 g/dL (12.0-15.5) 7.6 g/dL (12.0-15.5) Hematocrit 22.5 % (36.0-47.0) 22.6 % (36.0-47.0) Mean Corpuscular Volume 94 fL (79-100) 95 fL (79-100) Mean Corpuscular Hemoglobin 32 pg (25-35) 32 pg (25-35) Mean Corpuscular Hemoglobin Concent 34 g/dL (31-37) 33 g/dL (31-37) Red Cell Distribution Width 15.9 % (11.5-14.5) 16.0 % (11.5-14.5) Platelet Count 198 x10^3/uL (140-400) 223 x10^3/uL (140-400) Neutrophils (%) (Auto) 81 % (31-73) 76 % (31-73) Lymphocytes (%) (Auto) 11 % (24-48) 13 % (24-48) Monocytes (%) (Auto) 7 % (0-9) 7 % (0-9) Eosinophils (%) (Auto) 1 % (0-3) 3 % (0-3) Basophils (%) (Auto) 0 % (0-3) 1 % (0-3) Neutrophils # (Auto) 8.6 x10^3/uL (1.8-7.7) 7.9 x10^3/uL (1.8-7.7) Lymphocytes # (Auto) 1.2 x10^3/uL (1.0-4.8) 1.3 x10^3/uL (1.0-4.8) Monocytes # (Auto) 0.7 x10^3/uL (0.0-1.1) 0.7 x10^3/uL (0.0-1.1) Eosinophils # (Auto) 0.1 x10^3/uL (0.0-0.7) 0.3 x10^3/uL (0.0-0.7) Basophils # (Auto) 0.0 x10^3/uL (0.0-0.2) 0.1 x10^3/uL (0.0-0.2) Sodium Level 139 mmol/L (136-145) 137 mmol/L (136-145) Potassium Level 3.9 mmol/L (3.5-5.1) 3.9 mmol/L (3.5-5.1) Chloride Level 107 mmol/L (98-107) 104 mmol/L (98-107) Carbon Dioxide Level 27 mmol/L (21-32) 26 mmol/L (21-32) Anion Gap 5 (6-14) 7 (6-14) Blood Urea Nitrogen 16 mg/dL (7-20) 15 mg/dL (7-20) Creatinine 1.0 mg/dL (0.6-1.0) 0.9 mg/dL (0.6-1.0) Estimated GFR (Cockcroft-Gault) 53.2 60.1 Glucose Level 192 mg/dL (70-99) 201 mg/dL (70-99) Calcium Level 8.0 mg/dL (8.5-10.1) 8.0 mg/dL (8.5-10.1) Phosphorus Level 1.4 mg/dL (2.6-4.7) 2.2 mg/dL (2.6-4.7) Magnesium Level 1.9 mg/dL (1.8-2.4) 1.9 mg/dL (1.8-2.4) Glucose (Fingerstick) 152 mg/dL (70-99) 202 mg/dL (70-99) BUN/Creatinine Ratio 17 (6-20) Total Bilirubin 1.1 mg/dL (0.2-1.0) Aspartate Amino Transf (AST/SGOT) 42 U/L (15-37) Alanine Aminotransferase (ALT/SGPT) 90 U/L (14-59) Alkaline Phosphatase 113 U/L (46-116) Total Protein 5.1 g/dL (6.4-8.2) Albumin 1.7 g/dL (3.4-5.0) Albumin/Globulin Ratio 0.5 (1.0-1.7) Laboratory Tests Test 05/10/19 22:06 05/11/19 05:00 05/11/19 05:04 Glucose (Fingerstick) 152 mg/dL (70-99) 202 mg/dL (70-99) White Blood Count 10.4 x10^3/uL (4.0-11.0) Red Blood Count 2.39 x10^6/uL (3.50-5.40) Hemoglobin 7.6 g/dL (12.0-15.5) Hematocrit 22.6 % (36.0-47.0) Mean Corpuscular Volume 95 fL (79-100) Mean Corpuscular Hemoglobin 32 pg (25-35) Mean Corpuscular Hemoglobin Concent 33 g/dL (31-37) Red Cell Distribution Width 16.0 % (11.5-14.5) Platelet Count 223 x10^3/uL (140-400) Neutrophils (%) (Auto) 76 % (31-73) Lymphocytes (%) (Auto) 13 % (24-48) Monocytes (%) (Auto) 7 % (0-9) Eosinophils (%) (Auto) 3 % (0-3) Basophils (%) (Auto) 1 % (0-3) Neutrophils # (Auto) 7.9 x10^3/uL (1.8-7.7) Lymphocytes # (Auto) 1.3 x10^3/uL (1.0-4.8) Monocytes # (Auto) 0.7 x10^3/uL (0.0-1.1) Eosinophils # (Auto) 0.3 x10^3/uL (0.0-0.7) Basophils # (Auto) 0.1 x10^3/uL (0.0-0.2) Sodium Level 137 mmol/L (136-145) Potassium Level 3.9 mmol/L (3.5-5.1) Chloride Level 104 mmol/L (98-107) Carbon Dioxide Level 26 mmol/L (21-32) Anion Gap 7 (6-14) Blood Urea Nitrogen 15 mg/dL (7-20) Creatinine 0.9 mg/dL (0.6-1.0) Estimated GFR (Cockcroft-Gault) 60.1 BUN/Creatinine Ratio 17 (6-20) Glucose Level 201 mg/dL (70-99) Calcium Level 8.0 mg/dL (8.5-10.1) Phosphorus Level 2.2 mg/dL (2.6-4.7) Magnesium Level 1.9 mg/dL (1.8-2.4) Total Bilirubin 1.1 mg/dL (0.2-1.0) Aspartate Amino Transf (AST/SGOT) 42 U/L (15-37) Alanine Aminotransferase (ALT/SGPT) 90 U/L (14-59) Alkaline Phosphatase 113 U/L (46-116) Total Protein 5.1 g/dL (6.4-8.2) Albumin 1.7 g/dL (3.4-5.0) Albumin/Globulin Ratio 0.5 (1.0-1.7) Microbiology 04/26/19 Urine Culture - Final, Complete 04/26/19 Urine Culture Result 1 (QUEENIE) - Final, Complete Medications Current Medications Iohexol (Omnipaque 300 Mg/ml) 60 ml 1X ONCE IV Last administered on 04/26/19at 12:06; Start 04/26/19 at 12:30; Stop 04/26/19 at 12:31; Status DC Info (CONTRAST GIVEN -- Rx MONITORING) 1 each PRN DAILY PRN MC SEE COMMENTS; Start 04/26/19 at 12:00; Stop 04/28/19 at 11:59; Status DC Ondansetron HCl (Zofran) 4 mg PRN Q6HRS PRN IV NAUSEA/VOMITING Last administered on 04/29/19at 01:04; Start 04/26/19 at 12:30; Stop 04/29/19 at 04:56; Status DC Cholestyramine Resin (Questran Light) 4 gm BID@1000,2200 PO Last administered on 05/07/19at 10:23; Start 04/26/19 at 22:00 Hydroxyzine HCl (Atarax) 25 mg PRN Q6HRS PRN PO ITCHING Last administered on 05/06/19 21:03; Start 04/26/19 at 12:30 Morphine Sulfate (Morphine Sulfate) 2 mg PRN Q6HRS PRN IV SEVERE PAIN 7-10; Start 04/26/19 at 12:30; Stop 04/26/19 at 12:42; Status DC Acetaminophen/ Hydrocodone Bitart (Lortab 5/325) 1 tab PRN Q6HRS PRN PO MILD PAIN / TEMP; Start 04/26/19 at 12:30; Stop 04/26/19 at 12:42; Status DC Gabapentin (Neurontin) 300 mg TID PO Last administered on 05/07/19 21:07; Start 04/26/19 at 14:00 Lorazepam (Ativan) 0.5 mg PRN BID PRN PO AGITATION; Start 04/26/19 at 12:30 Sertraline HCl (Zoloft) 50 mg DAILY PO Last administered on 05/07/19 09:02; Start 04/27/19 at 09:00 Tramadol HCl (Ultram) 50 mg TID PO Last administered on 04/29/19 09:09; Start 04/26/19 at 14:00; Stop 04/29/19 at 10:09; Status DC Acetaminophen (Tylenol) 325 mg PRN Q6HRS PRN PO MILD PAIN / TEMP; Start 04/26/19 at 12:30 Polyethylene Glycol (miraLAX PACKET) 17 gm DAILY PO Last administered on 05/07/19 09:02; Start 04/27/19 at 09:00 Magnesium Hydroxide (Milk Of Magnesia) 2,400 mg PRN DAILY PRN PO CONSTIPATION Last administered on 04/29/19 02:34; Start 04/26/19 at 12:30 Acetaminophen/ Hydrocodone Bitart (Lortab 5/325) 1 tab PRN Q4HRS PRN PO MODERATE PAIN Last administered on 05/05/19 08:41; Start 04/26/19 at 12:45 Morphine Sulfate (Morphine Sulfate) 1 mg PRN Q4HRS PRN IV SEVERE PAIN 7-10 Last administered on 04/29/19 01:11; Start 04/26/19 at 12:45; Stop 04/29/19 at 04:56; Status DC Levofloxacin/ Dextrose 100 ml @ 100 mls/hr 1X ONCE IV Last administered on 04/28/19at 08:31; Start 04/28/19 at 07:15; Stop 04/28/19 at 08:14; Status DC Ringer's Solution 1,000 ml @ 75 mls/hr 1X ONCE IV Last administered on 04/28/19at 14:43; Start 04/28/19 at 12:15; Stop 04/29/19 at 01:34; Status DC Iohexol (Omnipaque 300 Mg/ml) 100 ml STK-MED ONCE .ROUTE ; Start 04/28/19 at 13:24; Stop 04/28/19 at 13:25; Status DC Famotidine (Pepcid Vial) 20 mg STK-MED ONCE .ROUTE ; Start 04/28/19 at 14:12; Stop 04/28/19 at 14:13; Status DC Dexamethasone Sodium Phosphate (Decadron) 20 mg STK-MED ONCE .ROUTE ; Start 04/28/19 at 14:13; Stop 04/28/19 at 14:14; Status DC Lidocaine HCl (Lidocaine Pf 2% Vial) 5 ml STK-MED ONCE .ROUTE ; Start 04/28/19 at 15:00; Stop 04/28/19 at 15:01; Status DC Iohexol (Omnipaque 300 Mg/ml) 100 ml STK-MED ONCE IV Last administered on 04/28/19at 16:20; Start 04/28/19 at 16:20; Stop 04/28/19 at 16:48; Status DC Fentanyl Citrate (Fentanyl 2ml Vial) 25 mcg 1X ONCE IV Last administered on 04/28/19at 17:05; Start 04/28/19 at 17:00; Stop 04/28/19 at 17:01; Status DC Morphine Sulfate (Morphine Sulfate) 2 mg PRN Q4HRS PRN IV SEVERE PAIN 7-10; Start 04/29/19 at 05:00; Stop 05/08/19 at 08:25; Status DC Ondansetron HCl (Zofran) 8 mg PRN Q6HRS PRN IV NAUSEA/VOMITING, 1ST CHOICE Last administered on 05/03/19at 22:23; Start 04/29/19 at 05:00 Prochlorperazine Maleate (Compazine) 10 mg PRN Q6HRS PRN PO NAUSEA/VOMITING; Start 04/29/19 at 05:00 Tramadol HCl (Ultram) 50 mg QID PO Last administered on 05/08/19at 00:11; Start 04/29/19 at 13:00 Potassium Chloride/Dextrose/ Sod Cl 1,000 ml @ 75 mls/hr [id number] IV Last administered on 04/30/19at 02:53; Start 04/29/19 at 10:15; Stop 04/30/19 at 10:45; Status DC Amitriptyline HCl (Elavil) 25 mg QHS PO Last administered on 05/07/19at 21:07; Start 04/29/19 at 21:00 Phenylephrine HCl (PHENYLEPHRINE in 0.9% NACL PF) 1 mg STK-MED ONCE IV ; Start 04/28/19 at 14:00; Stop 04/29/19 at 13:10; Status DC Succinylcholine Chloride (Anectine) 200 mg STK-MED ONCE .ROUTE ; Start 04/28/19 at 14:00; Stop 04/29/19 at 13:10; Status DC Propofol (Diprivan) 200 mg STK-MED ONCE IV ; Start 04/28/19 at 14:00; Stop 04/29/19 at 13:10; Status DC Amino Acids/ Glycerin/ Electrolytes 1,000 ml @ 80 mls/hr [id number] IV Last administered on 05/09/19at 08:22; Start 04/30/19 at 10:45; Stop 05/09/19 at 21:59; Status DC Amlodipine Besylate (Norvasc) 5 mg DAILY PO Last administered on 05/05/19at 08:41; Start 05/01/19 at 13:00; Stop 05/05/19 at 10:06; Status DC Hydralazine HCl (Apresoline Inj) 10 mg PRN Q4HRS PRN IVP ELEVATED BP, SEE COMMENTS; Start 05/01/19 at 12:45 Amlodipine Besylate (Norvasc) 2.5 mg DAILY PO Last administered on 05/06/19at 09:28; Start 05/05/19 at 10:30; Stop 05/06/19 at 10:03; Status DC Cefoxitin Sodium (Mefoxin) 2 gm 1X PREOP IVP ; Start 05/08/19 at 08:00; Stop 05/08/19 at 10:15; Status DC Ondansetron HCl (Zofran) 4 mg PRN Q6HRS PRN IV NAUSEA/VOMITING; Start 05/08/19 at 07:00; Stop 05/08/19 at 20:00; Status DC Fentanyl Citrate (Fentanyl 2ml Vial) 25 mcg PRN Q5MIN PRN IV MILD PAIN 1-3 Last administered on 05/08/19at 15:37; Start 05/08/19 at 07:00; Stop 05/08/19 at 20:00; Status DC Fentanyl Citrate (Fentanyl 2ml Vial) 50 mcg PRN Q5MIN PRN IV MODERATE TO SEVERE PAIN; Start 05/08/19 at 07:00; Stop 05/08/19 at 20:00; Status DC Morphine Sulfate (Morphine Sulfate) 1 mg PRN Q10MIN PRN IV SEVERE PAIN 7-10; Start 05/08/19 at 07:00; Stop 05/08/19 at 20:00; Status DC Ringer's Solution 1,000 ml @ 30 mls/hr Q24H IV Last administered on 05/08/19at 07:28; Start 05/08/19 at 07:00; Stop 05/08/19 at 18:59; Status DC Hydromorphone HCl (Dilaudid) 0.5 mg PRN Q10MIN PRN IV SEV PAIN, Second choice; Start 05/08/19 at 07:00; Stop 05/08/19 at 20:00; Status DC Prochlorperazine Edisylate (Compazine) 5 mg PACU PRN PRN IV NAUSEA, MRX1 Last administered on 05/08/19at 15:37; Start 05/08/19 at 07:00; Stop 05/08/19 at 2 0:00; Status DC Fentanyl Citrate (Fentanyl 2ml Vial) 100 mcg STK-MED ONCE .ROUTE ; Start 05/08/19 at 07:06; Stop 05/08/19 at 07:07; Status DC Glycopyrrolate (Robinul) 1 mg STK-MED ONCE .ROUTE ; Start 05/08/19 at 07:07; Stop 05/08/19 at 07:07; Status DC Rocuronium [place] (Zemuron) 100 mg STK-MED ONCE .ROUTE ; Start 05/08/19 at 07:08; Stop 05/08/19 at 07:08; Status DC Neostigmine Methylsulfate (Neostigmine Methylsulfate) 5 mg STK-MED ONCE .ROUTE ; Start 05/08/19 at 07:08; Stop 05/08/19 at 07:08; Status DC Propofol 20 ml @ As Directed STK-MED ONCE IV ; Start 05/08/19 at 07:09; Stop 05/08/19 at 07:09; Status DC Lidocaine HCl (Lidocaine Pf 2% Vial) 5 ml STK-MED ONCE .ROUTE ; Start 05/08/19 at 07:09; Stop 05/08/19 at 07:09; Status DC Ondansetron HCl (Zofran) 4 mg STK-MED ONCE .ROUTE ; Start 05/08/19 at 07:09; Stop 05/08/19 at 07:09; Status DC Dexamethasone Sodium Phosphate (Decadron) 4 mg STK-MED ONCE .ROUTE ; Start 05/08/19 at 07:09; Stop 05/08/19 at 07:09; Status DC Phenylephrine HCl (Ricco-Synephrine Inj) 10 mg STK-MED ONCE .ROUTE ; Start 05/08/19 at 07:12; Stop 05/08/19 at 07:12; Status DC Sodium Chloride 39.95 ml/ Hydromorphone HCl 0.5 mg/ Ropivacaine 10 ml/ Epidural Dosage Infused (Pha) 50 ml @ 8 mls/hr CONT PRN EPID PER PROTOCOL Last administered on 05/11/19at 11:37; Start 05/08/19 at 09:00 Fentanyl Citrate (Fentanyl 2ml Vial) 100 mcg STK-MED ONCE .ROUTE ; Start 05/08/19 at 08:25; Stop 05/08/19 at 08:25; Status DC Ephedrine Sulfate (ePHEDrine PF IN SALINE SYRINGE) 50 mg STK-MED ONCE IV ; Start 05/08/19 at 08:37; Stop 05/08/19 at 08:37; Status DC Cefoxitin Sodium (Mefoxin) 2 gm 1X PREOP IVP ; Start 05/08/19 at 10:15 Cefoxitin Sodium (Mefoxin) 2 gm 1X ONCE IVP Last administered on 05/08/19at 12:31; Start 05/08/19 at 12:30; Stop 05/08/19 at 12:31; Status DC Cefoxitin Sodium (Mefoxin) 1 gm STK-MED ONCE IVP ; Start 05/08/19 at 13:51; Stop 05/08/19 at 13:52; Status DC Famotidine (Pepcid Vial) 20 mg DAILY IVP Last administered on 05/09/19at 08:22; Start 05/08/19 at 21:00; Stop 05/09/19 at 16:20; Status DC Heparin Sodium (Porcine) (Heparin Sodium) 5,000 unit Q12HR SQ Last administered on 05/11/19at 11:37; Start 05/08/19 at 14:30 Sodium Chloride (Normal Saline Flush) 3 ml QSHIFT PRN IV AFTER MEDS AND BLOOD DRAWS; Start 05/08/19 at 14:30 Ringer's Solution 1,000 ml @ 100 mls/hr Q10H IV Last administered on 05/09/19at 18:58; Start 05/08/19 at 14:18; Stop 05/09/19 at 19:29; Status DC Naloxone HCl (Narcan) 0.4 mg PRN Q2MIN PRN IV SEE INSTRUCTIONS; Start 05/08/19 at 14:30 Sodium Chloride 1,000 ml @ 25 mls/hr Q24H IV ; Start 05/08/19 at 14:18 Ondansetron HCl (Zofran) 4 mg PRN Q6HRS PRN IV NAUESA, 1ST CHOICE; Start 05/08/19 at 14:30 Fentanyl Citrate (Fentanyl 2ml Vial) 100 mcg STK-MED ONCE .ROUTE ; Start 05/08/19 at 14:29; Stop 05/08/19 at 14:29; Status DC Sevoflurane (Ultane) 90 ml STK-MED ONCE IH ; Start 05/08/19 at 14:44; Stop 05/08/19 at 14:44; Status DC Norepinephrine Bitartrate 250 ml @ 13.438 mls/ hr CONT PRN IV SEE I/O RECORD Last administered on 05/09/19at 23:49; Start 05/08/19 at 18:45 Ringer's Solution 500 ml @ 500 mls/hr 1X ONCE IV Last administered on 05/08/19at 19:22; Start 05/08/19 at 18:45; Stop 05/08/19 at 19:44; Status DC Ringer's Solution 500 ml @ 500 mls/hr 1X ONCE IV Last administered on 05/09/19at 03:39; Start 05/09/19 at 03:30; Stop 05/09/19 at 04:29; Status DC Ringer's Solution 500 ml @ 500 mls/hr 1X ONCE IV Last administered on 05/09/19at 10:14; Start 05/09/19 at 08:15; Stop 05/09/19 at 09:14; Status DC Info (Tpn Per Pharmacy) 1 each PRN DAILY PRN MC SEE COMMENTS Last administered on 05/11/19at 11:45; Start 05/09/19 at 13:00 Sodium Acetate 90 meq/Potassium Chloride 50 meq/ Potassium Phosphate 13.6 mmol /Magnesium Sulfate 8 meq/ Calcium Gluconate 10 meq/ Multivitamins 10 ml/Chromium/ Copper/Manganese/ Seleni/Zn 1 ml/ Total Parenteral Nutrition/Amino Acids/Dextrose/ Fat Emulsion Intravenous 1,512 ml @ 63 mls/hr TPN CONT IV Last administered on 05/09/19at 21:00; Start 05/09/19 at 22:00; Stop 05/10/19 at 21:59; Status DC Info (Tpn Per Pharmacy) 1 each PRN DAILY PRN MC SEE COMMENTS; Start 05/09/19 at 14:30; Status UNV Pantoprazole Sodium (PROTONIX VIAL for IV PUSH) 40 mg [id number] IVP Last administered on 05/11/19at 05:07; Start 05/09/19 at 18:00 Albumin Human 500 ml @ 125 mls/hr 1X ONCE IV Last administered on 05/09/19at 17:33; Start 05/09/19 at 17:30; Stop 05/09/19 at 21:29; Status DC Diphenhydramine HCl (Benadryl) 12.5 mg PRN Q6HRS PRN IVP ITCHING Last administered on 05/11/19at 00:19; Start 05/09/19 at 18:30 Acetaminophen (Tylenol Supp) 650 mg PRN Q8HRS PRN [place] MILD PAIN / TEMP; Start 05/09/19 at 18:30 Potassium Phosphate 13.6 mmol/Dextrose 104.5333 ml @ 52.267 m... Q2H IV Last administered on 05/10/19at 11:28; Start 05/10/19 at 09:00; Stop 05/10/19 at 12:59; Status DC Sodium Acetate 90 meq/Potassium Chloride 50 meq/ Potassium Phosphate 18 mmol/ Magnesium Sulfate 10 meq/Calcium Gluconate 10 meq/ Multivitamins 10 ml/Chromium/ Copper/Manganese/ Seleni/Zn 1 ml/ Total Parenteral Nutrition/Amino Acids/Dextrose/ Fat Emulsion Intravenous 1,512 ml @ 63 mls/hr TPN CONT IV Last administered on 05/10/19at 21:32; Start 05/10/19 at 22:00; Stop 05/11/19 at 21:59 Potassium Phosphate 13.6 mmol/Dextrose 104.5333 ml @ 52.267 m... Q2H IV Last administered on 05/11/19at 11:37; Start 05/11/19 at 11:30; Stop 05/11/19 at 13:29 Sodium Acetate 90 meq/Potassium Chloride 50 meq/ Potassium Phosphate 24 mmol/ Magnesium Sulfate 15 meq/Calcium Gluconate 10 meq/ Multivitamins 10 ml/Chromium/ Copper/Manganese/ Seleni/Zn 1 ml/ Total Parenteral Nutrition/Amino Acids/Dextrose/ Fat Emulsion Intravenous 1,512 ml @ 63 mls/hr TPN CONT IV ; Start 05/11/19 at 22:00; Stop 05/12/19 at 21:59 Insulin Human Lispro (HumaLOG) 0-5 UNITS TIDWMEALS SQ ; Start 05/11/19 at 12:00 Dextrose (Dextrose 50%-Water Syringe) 12.5 gm PRN Q15MIN PRN IV SEE COMMENTS; Start 05/11/19 at 11:30 Dextrose 250 ml PRN Q15MIN PRN IV SEE COMMENTS; Start 05/11/19 at 11:30 Active Scripts Active Zoloft (Sertraline Hcl) 50 Mg Tablet 50 Mg PO DAILY [Polyethylene Glycol 3350] 17 GM Packet 17 Gm PO DAILY [Oxycodone Hcl/Acetaminophen] 1 TAB Tablet 1 Tab PO PRN Q4HRS PRN Neurontin (Gabapentin) 300 Mg Capsule 300 Mg PO TID [Amoxicillin/Potassium Clav] 1 TAB Tablet 1 Tab PO BID [Amitriptyline Hcl] 50 MG Tablet 50 Mg PO QHS Lipitor (Atorvastatin Calcium) 10 Mg Tablet 10 Mg PO QHS Vitals/I & O Vital Sign - Last 24 Hours 05/10/19 05/10/19 05/10/19 05/10/19 15:30 16:00 16:00 17:00 Temp 99.5 99.5 Pulse 82 82 79 Resp 16 16 B/P (MAP) 118/61 (80) 108/52 (70) 110/58 (75) Pulse Ox 96 97 O2 Delivery Nasal Cannula Nasal Cannula Nasal Cannula O2 Flow Rate 2.0 2.0 2.0 05/10/19 05/10/19 05/10/19 05/10/19 18:00 19:00 20:00 20:00 Temp 99.2 99.2 Pulse 83 83 84 Resp 16 16 16 B/P (MAP) 113/63 (80) 111/60 (77) 110/60 (77) Pulse Ox 95 95 95 O2 Delivery Nasal Cannula Nasal Cannula Nasal Cannula Nasal Cannula O2 Flow Rate 2.0 2.0 2.0 2.0 05/10/19 05/10/19 05/10/19 05/10/19 20:30 21:00 21:09 22:00 Pulse 88 88 86 Resp 16 16 19 17 B/P (MAP) 113/63 (80) 112/52 (72) 115/60 (78) Pulse Ox 95 95 95 95 O2 Delivery Nasal Cannula Nasal Cannula Nasal Cannula Nasal Cannula O2 Flow Rate 2.0 2.0 2.0 2.0 05/10/19 05/10/19 05/11/19 05/11/19 23:00 23:59 00:01 01:00 Temp 98.9 98.9 Pulse 85 83 82 Resp 15 14 13 B/P (MAP) 110/59 (76) 95/61 (72) 104/61 (75) Pulse Ox 96 97 97 O2 Delivery Nasal Cannula Nasal Cannula Nasal Cannula Nasal Cannula O2 Flow Rate 2.0 2.0 2.0 2.0 05/11/19 05/11/19 05/11/19 05/11/19 02:00 03:00 04:00 04:00 Temp 98.6 98.6 Pulse 89 83 87 Resp 19 19 13 B/P (MAP) 97/58 (71) 95/62 (73) 107/66 (80) Pulse Ox 97 95 95 O2 Delivery Nasal Cannula Nasal Cannula Nasal Cannula Nasal Cannula O2 Flow Rate 2.0 2.0 2.0 2.0 805/11/19 05/11/19 05/11/19 05:00 06:00 07:00 08:00 Pulse 83 84 84 Resp 14 14 20 B/P (MAP) 105/60 (75) 106/62 (77) 112/60 (77) Pulse Ox 95 96 96 O2 Delivery Nasal Cannula Nasal Cannula Nasal Cannula Nasal Cannula O2 Flow Rate 2.0 2.0 2.0 2.0 05/11/19 05/11/19 05/11/19 05/11/19 08:00 09:00 10:00 11:00 Temp 99.8 99.8 Pulse 82 82 82 85 Resp 19 19 26 14 B/P (MAP) 105/58 (74) 109/62 (78) 98/58 (71) 111/65 (80) Pulse Ox 97 97 96 97 O2 Delivery Nasal Cannula Nasal Cannula Nasal Cannula Nasal Cannula O2 Flow Rate 2.0 2.0 2.0 2.0 Intake and Output 05/10/19 05/10/19 05/11/19 15:00 23:00 07:00 Intake Total 362 ml 494.7 ml 1501.00 ml Output Total 1050 ml 2950 ml 645 ml Balance -688 ml -2455.3 ml 856.00 ml Problem List Problems Medical Problems: (1) Acute hepatitis Status: Acute (2) Epigastric pain Status: Acute (3) Generalized pruritus Status: Acute (4) Obstructive jaundice Status: Acute Assessment Pancreatic cancer-s/p whipple, medical therapy pending resolution of post-op ileus, CPM MOSHE BIRMINGHAM MD May 11, 2019 12:12
--- NOTE | 2019-05-11 12:21 | PDOC ---
SURGICAL PROGRESS NOTE Subjective feeling better no emesis Vital Signs Vital Signs Date Time Temp Pulse Resp B/P (MAP) Pulse Ox O2 Delivery O2 Flow Rate FiO2 05/11/19 11:00 85 14 111/65 (80) 97 Nasal Cannula 2.0 05/11/19 08:00 99.8 99.8 I&O Intake and Output 05/11/19 07:00 Intake Total 2357.70 ml Output Total 4645 ml Balance -2287.30 ml IV Total 1695.70 ml Blood Product IV Normal Saline Flush 262 ml Other 400 ml Output Urine Total 4155 ml Drainage Total 490 ml General: Alert, Oriented X3, Cooperative, No acute distress Abdomen: Soft, Other (incision clean, gerald in place, drains serosang) Labs Laboratory Tests Test 05/10/19 05:30 05/10/19 22:06 05/11/19 05:00 05/11/19 05:04 White Blood Count 10.6 x10^3/uL (4.0-11.0) 10.4 x10^3/uL (4.0-11.0) Red Blood Count 2.39 x10^6/uL (3.50-5.40) 2.39 x10^6/uL (3.50-5.40) Hemoglobin 7.6 g/dL (12.0-15.5) 7.6 g/dL (12.0-15.5) Hematocrit 22.5 % (36.0-47.0) 22.6 % (36.0-47.0) Mean Corpuscular Volume 94 fL (79-100) 95 fL (79-100) Mean Corpuscular Hemoglobin 32 pg (25-35) 32 pg (25-35) Mean Corpuscular Hemoglobin Concent 34 g/dL (31-37) 33 g/dL (31-37) Red Cell Distribution Width 15.9 % (11.5-14.5) 16.0 % (11.5-14.5) Platelet Count 198 x10^3/uL (140-400) 223 x10^3/uL (140-400) Neutrophils (%) (Auto) 81 % (31-73) 76 % (31-73) Lymphocytes (%) (Auto) 11 % (24-48) 13 % (24-48) Monocytes (%) (Auto) 7 % (0-9) 7 % (0-9) Eosinophils (%) (Auto) 1 % (0-3) 3 % (0-3) Basophils (%) (Auto) 0 % (0-3) 1 % (0-3) Neutrophils # (Auto) 8.6 x10^3/uL (1.8-7.7) 7.9 x10^3/uL (1.8-7.7) Lymphocytes # (Auto) 1.2 x10^3/uL (1.0-4.8) 1.3 x10^3/uL (1.0-4.8) Monocytes # (Auto) 0.7 x10^3/uL (0.0-1.1) 0.7 x10^3/uL (0.0-1.1) Eosinophils # (Auto) 0.1 x10^3/uL (0.0-0.7) 0.3 x10^3/uL (0.0-0.7) Basophils # (Auto) 0.0 x10^3/uL (0.0-0.2) 0.1 x10^3/uL (0.0-0.2) Sodium Level 139 mmol/L (136-145) 137 mmol/L (136-145) Potassium Level 3.9 mmol/L (3.5-5.1) 3.9 mmol/L (3.5-5.1) Chloride Level 107 mmol/L (98-107) 104 mmol/L (98-107) Carbon Dioxide Level 27 mmol/L (21-32) 26 mmol/L (21-32) Anion Gap 5 (6-14) 7 (6-14) Blood Urea Nitrogen 16 mg/dL (7-20) 15 mg/dL (7-20) Creatinine 1.0 mg/dL (0.6-1.0) 0.9 mg/dL (0.6-1.0) Estimated GFR (Cockcroft-Gault) 53.2 60.1 Glucose Level 192 mg/dL (70-99) 201 mg/dL (70-99) Calcium Level 8.0 mg/dL (8.5-10.1) 8.0 mg/dL (8.5-10.1) Phosphorus Level 1.4 mg/dL (2.6-4.7) 2.2 mg/dL (2.6-4.7) Magnesium Level 1.9 mg/dL (1.8-2.4) 1.9 mg/dL (1.8-2.4) Glucose (Fingerstick) 152 mg/dL (70-99) 202 mg/dL (70-99) BUN/Creatinine Ratio 17 (6-20) Total Bilirubin 1.1 mg/dL (0.2-1.0) Aspartate Amino Transf (AST/SGOT) 42 U/L (15-37) Alanine Aminotransferase (ALT/SGPT) 90 U/L (14-59) Alkaline Phosphatase 113 U/L (46-116) Total Protein 5.1 g/dL (6.4-8.2) Albumin 1.7 g/dL (3.4-5.0) Albumin/Globulin Ratio 0.5 (1.0-1.7) Laboratory Tests Test 05/10/19 22:06 05/11/19 05:00 05/11/19 05:04 Glucose (Fingerstick) 152 mg/dL (70-99) 202 mg/dL (70-99) White Blood Count 10.4 x10^3/uL (4.0-11.0) Red Blood Count 2.39 x10^6/uL (3.50-5.40) Hemoglobin 7.6 g/dL (12.0-15.5) Hematocrit 22.6 % (36.0-47.0) Mean Corpuscular Volume 95 fL (79-100) Mean Corpuscular Hemoglobin 32 pg (25-35) Mean Corpuscular Hemoglobin Concent 33 g/dL (31-37) Red Cell Distribution Width 16.0 % (11.5-14.5) Platelet Count 223 x10^3/uL (140-400) Neutrophils (%) (Auto) 76 % (31-73) Lymphocytes (%) (Auto) 13 % (24-48) Monocytes (%) (Auto) 7 % (0-9) Eosinophils (%) (Auto) 3 % (0-3) Basophils (%) (Auto) 1 % (0-3) Neutrophils # (Auto) 7.9 x10^3/uL (1.8-7.7) Lymphocytes # (Auto) 1.3 x10^3/uL (1.0-4.8) Monocytes # (Auto) 0.7 x10^3/uL (0.0-1.1) Eosinophils # (Auto) 0.3 x10^3/uL (0.0-0.7) Basophils # (Auto) 0.1 x10^3/uL (0.0-0.2) Sodium Level 137 mmol/L (136-145) Potassium Level 3.9 mmol/L (3.5-5.1) Chloride Level 104 mmol/L (98-107) Carbon Dioxide Level 26 mmol/L (21-32) Anion Gap 7 (6-14) Blood Urea Nitrogen 15 mg/dL (7-20) Creatinine 0.9 mg/dL (0.6-1.0) Estimated GFR (Cockcroft-Gault) 60.1 BUN/Creatinine Ratio 17 (6-20) Glucose Level 201 mg/dL (70-99) Calcium Level 8.0 mg/dL (8.5-10.1) Phosphorus Level 2.2 mg/dL (2.6-4.7) Magnesium Level 1.9 mg/dL (1.8-2.4) Total Bilirubin 1.1 mg/dL (0.2-1.0) Aspartate Amino Transf (AST/SGOT) 42 U/L (15-37) Alanine Aminotransferase (ALT/SGPT) 90 U/L (14-59) Alkaline Phosphatase 113 U/L (46-116) Total Protein 5.1 g/dL (6.4-8.2) Albumin 1.7 g/dL (3.4-5.0) Albumin/Globulin Ratio 0.5 (1.0-1.7) Problem List Problems Medical Problems: (1) Acute hepatitis Status: Acute (2) Epigastric pain Status: Acute (3) Generalized pruritus Status: Acute (4) Obstructive jaundice Status: Acute Assessment/Plan stable supportive measures [employer]NER May 11, 2019 12:21
[2019-05-11] MEDS: IV NORMAL SALINE 1000ML BAG 1,000 ML IV SCH (14:18)
[2019-05-11] MEDS: INSULIN LISPRO 300 UNITS/3 ML VIAL. SQ SCH ×2 (15:40→18:48)
--- NOTE | 2019-05-11 19:55 | NUR ---
Patient transferred to room 444 via bed accompanied by RN, [employer] WORKER and family member. Patient transferred with O2 2L/NC and Epidural of Dilauded/Naropin. All patient's belongings transferred with her to include clothing, cell phone, and cellphone trashman. Patient introduced to RN and T[employer] WORKER who oriented patient to room and Nursing reyna light.
[2019-05-11] MEDS: AMITRIPTYLINE HCL 25 MG TABLET. PO SCH (21:00)
[2019-05-11] MEDS ORDERED: DEXTROSE 70% IV SCH ×10 (22:00)
[2019-05-11] MEDS ORDERED: AMINO ACID IV SCH ×10 (22:00)
[2019-05-11] MEDS ORDERED: TOTAL PARENTERAL NUTRITION IV SCH ×10 (22:00)
[2019-05-11] MEDS ORDERED: [UNRECOGNIZED DRUG - OTHER] IV SCH ×10 (22:00)
[2019-05-12] MEDS: HYDROMORPHONE EPID PRN ×6 (00:22→22:07)
[2019-05-12] MEDS: ROPIVACAINE 0.5% EPID PRN ×6 (00:22→22:07)
[2019-05-12] MEDS: NORMAL SALINE EPID PRN ×6 (00:22→22:07)
[2019-05-12] MEDS: [UNRECOGNIZED DRUG - OTHER] EPID PRN ×6 (00:22→22:07)
[2019-05-12] MEDS: diphenhydrAMINE 50 MG/ML VIAL IVP PRN ×2 (00:43→19:10)
[2019-05-12 03:00] VITALS: BP 122/63
[2019-05-12 05:11] LABS: BASO % 0 % (0-3); EOS # 0.3 x10^3/uL (0.0-0.7); EOS % 4 % (0-3); HEMOGLOBIN 7.8 g/dL (12.0-15.5); LYMPH # 1.5 x10^3/uL (1.0-4.8); LYMPH % 17 % (24-48); MEAN CORPUSCULAR HEMOGLOBIN 31 pg (25-35); MEAN CORPUSCULAR HGB CONC 34 g/dL (31-37); MEAN CORPUSCULAR VOLUME 92 fL (79-100); MONO # 0.9 x10^3/uL (0.0-1.1); MONO % 10 % (0-9); NEUT # 6.2 x10^3/uL (1.8-7.7); NEUT % 69 % (31-73); PLATELET COUNT 269 x10^3/uL (140-400)
[2019-05-12 05:36] LABS: CALCIUM 8.1 mg/dL (8.5-10.1); CREATININE 0.9 mg/dL (0.6-1.0); GFR 60.1; MAGNESIUM 1.8 mg/dL (1.8-2.4); PHOSPHORUS 3.6 mg/dL (2.6-4.7)
[2019-05-12] MEDS: PANTOPRAZOLE IV PUSH 40 MG VIAL. IVP SCH ×2 (06:05→17:34)
[2019-05-12 07:00] VITALS: BP 121/75
[2019-05-12] MEDS: INSULIN LISPRO 300 UNITS/3 ML VIAL. SQ SCH ×3 (08:00→17:44)
[2019-05-12] MEDS: GABAPENTIN 300 MG CAPSULE. PO SCH ×3 (08:21→21:00)
[2019-05-12] MEDS: POLYETHYLENE GLYCOL 3350 17 GM PACKET. PO SCH (08:21)
[2019-05-12] MEDS: CHOLESTYRAMINE/ASPARTAME 4 GM PACKET PO SCH ×2 (08:21→22:00)
[2019-05-12] MEDS: SERTRALINE 50 MG TABLET. PO SCH (08:21)
[2019-05-12] MEDS: traMADol 50 MG TABLET PO SCH ×4 (08:23→21:00)
[2019-05-12] MEDS: HEPARIN for SUB-Q USE 5,000 UNIT/ML VIAL. SQ SCH ×2 (08:28→21:32)
--- NOTE | 2019-05-12 08:36 | PDOC ---
SURGICAL PROGRESS NOTE Subjective resting mild nausea no flatus Vital Signs Vital Signs Date Time Temp Pulse Resp B/P (MAP) Pulse Ox O2 Delivery O2 Flow Rate FiO2 05/12/19 07:00 98.5 69 14 121/75 (90) 96 Room Air 98.5 05/12/19 03:00 2.0 I&O Intake and Output 05/12/19 06:59 Intake Total 997.47 ml Output Total 2775 ml Balance -1777.53 ml IV Total 997.47 ml Output Urine Total 2545 ml Drainage Total 230 ml PATIENT HAS A MACEDO: Yes General: Alert, Cooperative HEENT: Other (NG in place) Abdomen: Soft, Other (dressing dry, drains serosang) Labs Laboratory Tests Test 05/10/19 22:06 05/11/19 05:00 05/11/19 05:04 05/11/19 15:38 Glucose (Fingerstick) 152 mg/dL (70-99) 202 mg/dL (70-99) 255 mg/dL (70-99) White Blood Count 10.4 x10^3/uL (4.0-11.0) Red Blood Count 2.39 x10^6/uL (3.50-5.40) Hemoglobin 7.6 g/dL (12.0-15.5) Hematocrit 22.6 % (36.0-47.0) Mean Corpuscular Volume 95 fL (79-100) Mean Corpuscular Hemoglobin 32 pg (25-35) Mean Corpuscular Hemoglobin Concent 33 g/dL (31-37) Red Cell Distribution Width 16.0 % (11.5-14.5) Platelet Count 223 x10^3/uL (140-400) Neutrophils (%) (Auto) 76 % (31-73) Lymphocytes (%) (Auto) 13 % (24-48) Monocytes (%) (Auto) 7 % (0-9) Eosinophils (%) (Auto) 3 % (0-3) Basophils (%) (Auto) 1 % (0-3) Neutrophils # (Auto) 7.9 x10^3/uL (1.8-7.7) Lymphocytes # (Auto) 1.3 x10^3/uL (1.0-4.8) Monocytes # (Auto) 0.7 x10^3/uL (0.0-1.1) Eosinophils # (Auto) 0.3 x10^3/uL (0.0-0.7) Basophils # (Auto) 0.1 x10^3/uL (0.0-0.2) Sodium Level 137 mmol/L (136-145) Potassium Level 3.9 mmol/L (3.5-5.1) Chloride Level 104 mmol/L (98-107) Carbon Dioxide Level 26 mmol/L (21-32) Anion Gap 7 (6-14) Blood Urea Nitrogen 15 mg/dL (7-20) Creatinine 0.9 mg/dL (0.6-1.0) Estimated GFR (Cockcroft-Gault) 60.1 BUN/Creatinine Ratio 17 (6-20) Glucose Level 201 mg/dL (70-99) Calcium Level 8.0 mg/dL (8.5-10.1) Phosphorus Level 2.2 mg/dL (2.6-4.7) Magnesium Level 1.9 mg/dL (1.8-2.4) Total Bilirubin 1.1 mg/dL (0.2-1.0) Aspartate Amino Transf (AST/SGOT) 42 U/L (15-37) Alanine Aminotransferase (ALT/SGPT) 90 U/L (14-59) Alkaline Phosphatase 113 U/L (46-116) Total Protein 5.1 g/dL (6.4-8.2) Albumin 1.7 g/dL (3.4-5.0) Albumin/Globulin Ratio 0.5 (1.0-1.7) Test 05/11/19 18:46 05/12/19 05:00 Glucose (Fingerstick) 216 mg/dL (70-99) White Blood Count 9.0 x10^3/uL (4.0-11.0) Red Blood Count 2.50 x10^6/uL (3.50-5.40) Hemoglobin 7.8 g/dL (12.0-15.5) Hematocrit 23.0 % (36.0-47.0) Mean Corpuscular Volume 92 fL (79-100) Mean Corpuscular Hemoglobin 31 pg (25-35) Mean Corpuscular Hemoglobin Concent 34 g/dL (31-37) Red Cell Distribution Width 16.0 % (11.5-14.5) Platelet Count 269 x10^3/uL (140-400) Neutrophils (%) (Auto) 69 % (31-73) Lymphocytes (%) (Auto) 17 % (24-48) Monocytes (%) (Auto) 10 % (0-9) Eosinophils (%) (Auto) 4 % (0-3) Basophils (%) (Auto) 0 % (0-3) Neutrophils # (Auto) 6.2 x10^3/uL (1.8-7.7) Lymphocytes # (Auto) 1.5 x10^3/uL (1.0-4.8) Monocytes # (Auto) 0.9 x10^3/uL (0.0-1.1) Eosinophils # (Auto) 0.3 x10^3/uL (0.0-0.7) Basophils # (Auto) 0.0 x10^3/uL (0.0-0.2) Sodium Level 138 mmol/L (136-145) Potassium Level 4.0 mmol/L (3.5-5.1) Chloride Level 104 mmol/L (98-107) Carbon Dioxide Level 26 mmol/L (21-32) Anion Gap 8 (6-14) Blood Urea Nitrogen 17 mg/dL (7-20) Creatinine 0.9 mg/dL (0.6-1.0) Estimated GFR (Cockcroft-Gault) 60.1 Glucose Level 206 mg/dL (70-99) Calcium Level 8.1 mg/dL (8.5-10.1) Phosphorus Level 3.6 mg/dL (2.6-4.7) Magnesium Level 1.8 mg/dL (1.8-2.4) Triglycerides Level 143 mg/dL (0-150) Laboratory Tests Test 05/11/19 15:38 05/11/19 18:46 05/12/19 05:00 Glucose (Fingerstick) 255 mg/dL (70-99) 216 mg/dL (70-99) White Blood Count 9.0 x10^3/uL (4.0-11.0) Red Blood Count 2.50 x10^6/uL (3.50-5.40) Hemoglobin 7.8 g/dL (12.0-15.5) Hematocrit 23.0 % (36.0-47.0) Mean Corpuscular Volume 92 fL (79-100) Mean Corpuscular Hemoglobin 31 pg (25-35) Mean Corpuscular Hemoglobin Concent 34 g/dL (31-37) Red Cell Distribution Width 16.0 % (11.5-14.5) Platelet Count 269 x10^3/uL (140-400) Neutrophils (%) (Auto) 69 % (31-73) Lymphocytes (%) (Auto) 17 % (24-48) Monocytes (%) (Auto) 10 % (0-9) Eosinophils (%) (Auto) 4 % (0-3) Basophils (%) (Auto) 0 % (0-3) Neutrophils # (Auto) 6.2 x10^3/uL (1.8-7.7) Lymphocytes # (Auto) 1.5 x10^3/uL (1.0-4.8) Monocytes # (Auto) 0.9 x10^3/uL (0.0-1.1) Eosinophils # (Auto) 0.3 x10^3/uL (0.0-0.7) Basophils # (Auto) 0.0 x10^3/uL (0.0-0.2) Sodium Level 138 mmol/L (136-145) Potassium Level 4.0 mmol/L (3.5-5.1) Chloride Level 104 mmol/L (98-107) Carbon Dioxide Level 26 mmol/L (21-32) Anion Gap 8 (6-14) Blood Urea Nitrogen 17 mg/dL (7-20) Creatinine 0.9 mg/dL (0.6-1.0) Estimated GFR (Cockcroft-Gault) 60.1 Glucose Level 206 mg/dL (70-99) Calcium Level 8.1 mg/dL (8.5-10.1) Phosphorus Level 3.6 mg/dL (2.6-4.7) Magnesium Level 1.8 mg/dL (1.8-2.4) Triglycerides Level 143 mg/dL (0-150) Problem List Problems Medical Problems: (1) Acute hepatitis Status: Acute (2) Epigastric pain Status: Acute (3) Generalized pruritus Status: Acute (4) Obstructive jaundice Status: Acute Assessment/Plan supportive measures await bowel function continue NG to TRUNG MCCRAY [employer] COVERING INSTALLER May 12, 2019 08:36
--- NOTE | 2019-05-12 09:48 | PDOC ---
PROGRESS NOTES Subjective Subjective moved out of ICU last night Objective Objective Vital Signs Date Time Temp Pulse Resp B/P (MAP) Pulse Ox O2 Delivery O2 Flow Rate FiO2 05/12/19 07:15 Nasal Cannula 2.0 05/12/19 07:00 98.5 69 14 121/75 (90) 96 98.5 Intake and Output 05/12/19 06:59 Intake Total 997.47 ml Output Total 2775 ml Balance -1777.53 ml IV Total 997.47 ml Output Urine Total 2545 ml Drainage Total 230 ml Physical Exam Physical Exam NGT Abdomen: Soft, Other (dressing dry, drains serosang) Heart: Regular rate Extremities: No edema General: Alert, Cooperative HEENT: Other (NG in place) Lungs: Clear to auscultation MUSCULOSKELETAL: No deformity, Osteoarthritic changes both hands Neck: Supple Neuro: Normal speech Psych/Mental Status: Mental status NL Skin: No rashes COMMENT central line present, lozano present Diagnosis Problem List Problems Medical Problems: (1) Acute hepatitis Status: Acute (2) Epigastric pain Status: Acute (3) Generalized pruritus Status: Acute (4) Obstructive jaundice Status: Acute Assessment Assessment Problems Medical Problems: (1) Acute hepatitis Status: Acute (2) Epigastric pain Status: Acute (3) Generalized pruritus Status: Acute (4) Obstructive jaundice Status: Acute Problems: Hypotension obstructive jaundice Pancreatic cancer. mid CBD stricture dilated. brushings suspicious for adenocarcinoma MRCP shows stricture by pancreatic head PLAN: POD #4 Transferred out of ICU to surgical floor. 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 Labs Laboratory Tests Test 05/11/19 15:38 05/11/19 18:46 05/12/19 05:00 Glucose (Fingerstick) 255 mg/dL (70-99) 216 mg/dL (70-99) White Blood Count 9.0 x10^3/uL (4.0-11.0) Red Blood Count 2.50 x10^6/uL (3.50-5.40) Hemoglobin 7.8 g/dL (12.0-15.5) Hematocrit 23.0 % (36.0-47.0) Mean Corpuscular Volume 92 fL (79-100) Mean Corpuscular Hemoglobin 31 pg (25-35) Mean Corpuscular Hemoglobin Concent 34 g/dL (31-37) Red Cell Distribution Width 16.0 % (11.5-14.5) Platelet Count 269 x10^3/uL (140-400) Neutrophils (%) (Auto) 69 % (31-73) Lymphocytes (%) (Auto) 17 % (24-48) Monocytes (%) (Auto) 10 % (0-9) Eosinophils (%) (Auto) 4 % (0-3) Basophils (%) (Auto) 0 % (0-3) Neutrophils # (Auto) 6.2 x10^3/uL (1.8-7.7) Lymphocytes # (Auto) 1.5 x10^3/uL (1.0-4.8) Monocytes # (Auto) 0.9 x10^3/uL (0.0-1.1) Eosinophils # (Auto) 0.3 x10^3/uL (0.0-0.7) Basophils # (Auto) 0.0 x10^3/uL (0.0-0.2) Sodium Level 138 mmol/L (136-145) Potassium Level 4.0 mmol/L (3.5-5.1) Chloride Level 104 mmol/L (98-107) Carbon Dioxide Level 26 mmol/L (21-32) Anion Gap 8 (6-14) Blood Urea Nitrogen 17 mg/dL (7-20) Creatinine 0.9 mg/dL (0.6-1.0) Estimated GFR (Cockcroft-Gault) 60.1 Glucose Level 206 mg/dL (70-99) Calcium Level 8.1 mg/dL (8.5-10.1) Phosphorus Level 3.6 mg/dL (2.6-4.7) Magnesium Level 1.8 mg/dL (1.8-2.4) Triglycerides Level 143 mg/dL (0-150) Microbiology 04/26/19 Urine Culture - Final, Complete 04/26/19 Urine Culture Result 1 (QUEENIE) - Final, Complete Medications Current Medications Dextrose 250 ml PRN Q15MIN PRN IV SEE COMMENTS; Start 05/11/19 at 11:30 Dextrose (Dextrose 50%-Water Syringe) 12.5 gm PRN Q15MIN PRN IV SEE COMMENTS; Start 05/11/19 at 11:30 Insulin Human Lispro (HumaLOG) 0-5 UNITS TIDWMEALS SQ Last administered on 05/11/19at 18:48; Start 05/11/19 at 12:00 Potassium Phosphate 13.6 mmol/Dextrose 104.5333 ml @ 52.267 m... Q2H IV Last administered on 05/11/19at 11:37; Start 05/11/19 at 11:30; Stop 05/11/19 at 13:29; Status DC Sodium Acetate 90 meq/Potassium Chloride 50 meq/ Potassium Phosphate 24 mmol/ Magnesium Sulfate 15 meq/Calcium Gluconate 10 meq/ Multivitamins 10 ml/Chromium/ Copper/Manganese/ Seleni/Zn 1 ml/ Total Parenteral Nutrition/Amino Acids/Dextrose/ Fat Emulsion Intravenous 1,512 ml @ 63 mls/hr TPN CONT IV Last administered on 05/11/19at 22:40; Start 05/11/19 at 22:00; Stop 05/12/19 at 21:59 Vitals/I & O Vital Sign - Last 24 Hours 05/11/19 05/11/19 05/11/19 05/11/19 10:00 11:00 12:00 12:00 Temp 98.8 98.8 Pulse 82 85 79 Resp 26 14 14 B/P (MAP) 98/58 (71) 111/65 (80) 110/65 (80) Pulse Ox 96 97 97 O2 Delivery Nasal Cannula Nasal Cannula Nasal Cannula Nasal Cannula O2 Flow Rate 2.0 2.0 2.0 2.0 05/11/19 05/11/19 05/11/19 05/11/19 13:00 14:00 15:00 16:00 Pulse 79 76 80 Resp 14 14 15 B/P (MAP) 112/60 (77) 104/59 (74) 109/64 (79) Pulse Ox 97 97 97 O2 Delivery Nasal Cannula Nasal Cannula Nasal Cannula Nasal Cannula O2 Flow Rate 2.0 2.0 2.0 2.0 05/11/19 05/11/19 05/11/19/18/19 16:00 20:00 20:00 22:56 Temp 98.4 98.4 98.9 98.4 98.4 98.9 Pulse 80 86 81 Resp 14 14 18 B/P (MAP) 106/63 (77) 115/69 (84) 103/56 (72) Pulse Ox 98 98 96 O2 Delivery Nasal Cannula Nasal Cannula Nasal Cannula Nasal Cannula O2 Flow Rate 2.0 2.0 2.0 2.0 05/12/19 05/12/19 05/12/19 03:00 07:00 07:15 Temp 98.2 98.5 98.2 98.5 Pulse 85 69 Resp 14 14 B/P (MAP) 122/63 (82) 121/75 (90) Pulse Ox 96 96 O2 Delivery Nasal Cannula Room Air Nasal Cannula O2 Flow Rate 2.0 2.0 Intake and Output 05/11/19 05/11/19 05/12/19 14:59 22:59 06:59 Intake Total 997.47 ml Output Total 1390 ml 345 ml 1040 ml Balance -1390 ml 652.47 ml -1040 ml BONNY BEST MD May 12, 2019 09:48
--- NOTE | 2019-05-12 10:38 | PDOC ---
Subjective: Subjective: Not feeling great. Pain button helps. No flatus. Objective: Objective: On TPN and IV PPI. Vital Signs: Vital Signs Date Time Temp Pulse Resp B/P (MAP) Pulse Ox O2 Delivery O2 Flow Rate FiO2 05/12/19 07:15 Nasal Cannula 2.0 05/12/19 07:00 98.5 69 14 121/75 (90) 96 98.5 Labs: Laboratory Tests Test 05/11/19 15:38 05/11/19 18:46 05/12/19 05:00 Glucose (Fingerstick) 255 mg/dL 216 mg/dL White Blood Count 9.0 x10^3/uL Red Blood Count 2.50 x10^6/uL Hemoglobin 7.8 g/dL Hematocrit 23.0 % Mean Corpuscular Volume 92 fL Mean Corpuscular Hemoglobin 31 pg Mean Corpuscular Hemoglobin Concent 34 g/dL Red Cell Distribution Width 16.0 % Platelet Count 269 x10^3/uL Neutrophils (%) (Auto) 69 % Lymphocytes (%) (Auto) 17 % Monocytes (%) (Auto) 10 % Eosinophils (%) (Auto) 4 % Basophils (%) (Auto) 0 % Neutrophils # (Auto) 6.2 x10^3/uL Lymphocytes # (Auto) 1.5 x10^3/uL Monocytes # (Auto) 0.9 x10^3/uL Eosinophils # (Auto) 0.3 x10^3/uL Basophils # (Auto) 0.0 x10^3/uL Sodium Level 138 mmol/L Potassium Level 4.0 mmol/L Chloride Level 104 mmol/L Carbon Dioxide Level 26 mmol/L Anion Gap 8 Blood Urea Nitrogen 17 mg/dL Creatinine 0.9 mg/dL Estimated GFR (Cockcroft-Gault) 60.1 Glucose Level 206 mg/dL Calcium Level 8.1 mg/dL Phosphorus Level 3.6 mg/dL Magnesium Level 1.8 mg/dL Triglycerides Level 143 mg/dL PE: GEN: NAD - up to chair LUNGS:NC NEURO/PSYCH: A & O �3 A/P: S/p whipple -- Continue per surgery. CORI PEDERSEN May 12, 2019 10:38
[2019-05-12 11:00] VITALS: BP 116/69
--- NOTE | 2019-05-12 14:00 | NUR ---
SS following up with discharge planning. PT/OT recommended fpc unit at discharge. SS met with pt and family to discuss fpc unit and discharge planning. Pt's family declined [facility] and requested referral be phoned and faxed to [facility], ; fax [phone]. SS phoned and faxed referral. SS will await acceptance decision and insurance determination and will proceed accordingly.
[2019-05-12] MEDS: TPN PER PHARMACY MC PRN (14:07)
--- NOTE | 2019-05-12 14:08 | NUR ---
Pharmacy TPN Dosing Note S: ANDREW LA is a 83 year old F Currently receiving Central Continuous TPN started 05/09/19 B:Pertinent PMH: NPO/POST WHIPPLE Height: 5 feet, 3 inches Weight: 76.5 kg Current diet: NPO LABS: Sodium: 138 Potassium: 4.0 Chloride: 104 Calcium: 8.1 Corrected Calcium: 9.94 Magnesium: 1.8 CO2: 26 SCr: 0.9 Glucose: 206, 257 Albumin: 1.7 AST: 42 ALT: 91 TPN FORMULA: TPN TYPE: Central Continuous AMINO ACIDS: 85 gm DEXTROSE: 250 gm LIPIDS: 20 gm SODIUM ACETATE: 90 mEq POTASSIUM CHLORIDE: 50 mEq POTASSIUM PHOSPHATE: 24 mmol MAGNESIUM: 18 mEq CALCIUM: 10 mEq INSULIN: 7 units MULTIPLE VITAMIN: 10 ml TRACE ELEMENTS: 1 ml TPN PLAN: -Serum magnesium trending down, increase mag sulfate to 18 mEq/day. -Blood glucose values elevated with TPN start, add regular insulin 7 units to TPN. -Serum triglycerides 143, continue same lipid component. -BMP, mag, phos tomorrow per protocol. R: Continue TPN @ current rate and above formula. Will monitor electrolytes, glucose, and tolerance to TPN. TIGRE PICHARDO [facility], 05/12/19 [id number]
[2019-05-12] MEDS: IV NORMAL SALINE 1000ML BAG 1,000 ML IV SCH ×2 (14:18→22:42)
[2019-05-12 16:00] VITALS: BP 125/67
[2019-05-12 19:00] VITALS: BP 130/65
[2019-05-12] MEDS: AMITRIPTYLINE HCL 25 MG TABLET. PO SCH (21:00)
[2019-05-12] MEDS ORDERED: AMINO ACID IV SCH ×11 (22:00)
[2019-05-12] MEDS ORDERED: TOTAL PARENTERAL NUTRITION IV SCH ×11 (22:00)
[2019-05-12] MEDS ORDERED: [UNRECOGNIZED DRUG - OTHER] IV SCH ×11 (22:00)
[2019-05-12] MEDS ORDERED: DEXTROSE 70% IV SCH ×11 (22:00)
[2019-05-12 23:00] VITALS: BP 118/64
[2019-05-13 03:00] VITALS: BP 121/68
[2019-05-13] MEDS: HYDROMORPHONE EPID PRN (03:29)
[2019-05-13] MEDS: [UNRECOGNIZED DRUG - OTHER] EPID PRN (03:29)
[2019-05-13] MEDS: NORMAL SALINE EPID PRN (03:29)
[2019-05-13] MEDS: ROPIVACAINE 0.5% EPID PRN (03:29)
[2019-05-13] MEDS: PANTOPRAZOLE IV PUSH 40 MG VIAL. IVP SCH ×2 (05:55→17:37)
[2019-05-13 06:34] LABS: CREATININE 0.9 mg/dL (0.6-1.0); GFR 60.1; MAGNESIUM 2.2 mg/dL (1.8-2.4); PHOSPHORUS 3.8 mg/dL (2.6-4.7); POTASSIUM 4.5 mmol/L (3.5-5.1)
[2019-05-13 07:00] VITALS: BP 118/83
--- NOTE | 2019-05-13 08:45 | NUR ---
Hold Heparin dose d/t epidural removal per DAVE Alvarez.
[2019-05-13] MEDS: traMADol 50 MG TABLET PO SCH ×4 (09:00→21:00)
[2019-05-13] MEDS: GABAPENTIN 300 MG CAPSULE. PO SCH ×4 (09:00→21:44)
[2019-05-13] MEDS: POLYETHYLENE GLYCOL 3350 17 GM PACKET. PO SCH (09:00)
[2019-05-13] MEDS: SERTRALINE 50 MG TABLET. PO SCH (09:00)
[2019-05-13] MEDS: HEPARIN for SUB-Q USE 5,000 UNIT/ML VIAL. SQ SCH ×2 (09:00→22:48)
[2019-05-13] MEDS ORDERED: IV NORMAL SALINE 1000ML BAG 1,000 ML IV SCH (09:06)
[2019-05-13] MEDS: INSULIN LISPRO 300 UNITS/3 ML VIAL. SQ SCH ×3 (09:09→17:11)
--- NOTE | 2019-05-13 09:11 | PDOC ---
SURGICAL PROGRESS NOTE Subjective resting pain managed + flatus Vital Signs Vital Signs Date Time Temp Pulse Resp B/P (MAP) Pulse Ox O2 Delivery O2 Flow Rate FiO2 05/13/19 07:00 97.9 81 18 118/83 (95) 100 Room Air 97.9 05/12/19 20:00 2.0 I&O Intake and Output 05/13/19 07:00 Intake Total 2116 ml Output Total 2220 ml Balance -104 ml Intake Oral 0 ml IV Total 1056 ml Other 1060 ml Output Urine Total 1950 ml Drainage Total 270 ml General: Alert, Oriented X3, Cooperative, No acute distress HEENT: Other (ng) Abdomen: Soft, Other (tom serosang) Labs Laboratory Tests Test 05/11/19 15:38 05/11/19 18:46 05/12/19 05:00 05/12/19 11:37 Glucose (Fingerstick) 255 mg/dL (70-99) 216 mg/dL (70-99) 257 mg/dL (70-99) White Blood Count 9.0 x10^3/uL (4.0-11.0) Red Blood Count 2.50 x10^6/uL (3.50-5.40) Hemoglobin 7.8 g/dL (12.0-15.5) Hematocrit 23.0 % (36.0-47.0) Mean Corpuscular Volume 92 fL (79-100) Mean Corpuscular Hemoglobin 31 pg (25-35) Mean Corpuscular Hemoglobin Concent 34 g/dL (31-37) Red Cell Distribution Width 16.0 % (11.5-14.5) Platelet Count 269 x10^3/uL (140-400) Neutrophils (%) (Auto) 69 % (31-73) Lymphocytes (%) (Auto) 17 % (24-48) Monocytes (%) (Auto) 10 % (0-9) Eosinophils (%) (Auto) 4 % (0-3) Basophils (%) (Auto) 0 % (0-3) Neutrophils # (Auto) 6.2 x10^3/uL (1.8-7.7) Lymphocytes # (Auto) 1.5 x10^3/uL (1.0-4.8) Monocytes # (Auto) 0.9 x10^3/uL (0.0-1.1) Eosinophils # (Auto) 0.3 x10^3/uL (0.0-0.7) Basophils # (Auto) 0.0 x10^3/uL (0.0-0.2) Sodium Level 138 mmol/L (136-145) Potassium Level 4.0 mmol/L (3.5-5.1) Chloride Level 104 mmol/L (98-107) Carbon Dioxide Level 26 mmol/L (21-32) Anion Gap 8 (6-14) Blood Urea Nitrogen 17 mg/dL (7-20) Creatinine 0.9 mg/dL (0.6-1.0) Estimated GFR (Cockcroft-Gault) 60.1 Glucose Level 206 mg/dL (70-99) Calcium Level 8.1 mg/dL (8.5-10.1) Phosphorus Level 3.6 mg/dL (2.6-4.7) Magnesium Level 1.8 mg/dL (1.8-2.4) Triglycerides Level 143 mg/dL (0-150) Test 05/12/19 16:59 05/12/19 23:56 05/13/19 05:00 05/13/19 06:27 Glucose (Fingerstick) 285 mg/dL (70-99) 266 mg/dL (70-99) 279 mg/dL (70-99) Sodium Level 136 mmol/L (136-145) Potassium Level 4.5 mmol/L (3.5-5.1) Chloride Level 102 mmol/L (98-107) Carbon Dioxide Level 25 mmol/L (21-32) Anion Gap 9 (6-14) Blood Urea Nitrogen 18 mg/dL (7-20) Creatinine 0.9 mg/dL (0.6-1.0) Estimated GFR (Cockcroft-Gault) 60.1 Glucose Level 320 mg/dL (70-99) Calcium Level 8.0 mg/dL (8.5-10.1) Phosphorus Level 3.8 mg/dL (2.6-4.7) Magnesium Level 2.2 mg/dL (1.8-2.4) Test 05/13/19 08:47 Glucose (Fingerstick) 297 mg/dL (70-99) Laboratory Tests Test 05/12/19 11:37 05/12/19 16:59 05/12/19 23:56 05/13/19 05:00 Glucose (Fingerstick) 257 mg/dL (70-99) 285 mg/dL (70-99) 266 mg/dL (70-99) Sodium Level 136 mmol/L (136-145) Potassium Level 4.5 mmol/L (3.5-5.1) Chloride Level 102 mmol/L (98-107) Carbon Dioxide Level 25 mmol/L (21-32) Anion Gap 9 (6-14) Blood Urea Nitrogen 18 mg/dL (7-20) Creatinine 0.9 mg/dL (0.6-1.0) Estimated GFR (Cockcroft-Gault) 60.1 Glucose Level 320 mg/dL (70-99) Calcium Level 8.0 mg/dL (8.5-10.1) Phosphorus Level 3.8 mg/dL (2.6-4.7) Magnesium Level 2.2 mg/dL (1.8-2.4) Test 05/13/19 06:27 05/13/19 08:47 Glucose (Fingerstick) 279 mg/dL (70-99) 297 mg/dL (70-99) Problem List Problems Medical Problems: (1) Acute hepatitis Status: Acute (2) Epigastric pain Status: Acute (3) Generalized pruritus Status: Acute (4) Obstructive jaundice Status: Acute Assessment/Plan dc ng, place G tube to LIS epidural to remove today--dc lozano and start office correspondent increase activity TRUNG RUSH APRN May 13, 2019 09:11
[2019-05-13] MEDS ORDERED: NALOXONE 0.4 MG/ML VIAL. IV PRN (09:15)
--- NOTE | 2019-05-13 09:36 | PDOC ---
PROGRESS NOTES Subjective Subjective NGT out Objective Objective Vital Signs Date Time Temp Pulse Resp B/P (MAP) Pulse Ox O2 Delivery O2 Flow Rate FiO2 05/13/19 07:00 97.9 81 18 118/83 (95) 100 Room Air 97.9 05/12/19 20:00 2.0 Intake and Output 05/13/19 06:59 Intake Total 2116 ml Output Total 2220 ml Balance -104 ml Intake Oral 0 ml IV Total 1056 ml Other 1060 ml Output Urine Total 1950 ml Drainage Total 270 ml Physical Exam Physical Exam epidural cytology manager Abdomen: Soft, Other (tom serosang) Heart: Regular rate Extremities: No edema General: Alert, Oriented X3, Cooperative, No acute distress HEENT: Other (ng) Lungs: Clear to auscultation MUSCULOSKELETAL: No deformity, Osteoarthritic changes both hands Neck: Supple Neuro: Normal speech Psych/Mental Status: Mental status NL Skin: No rashes COMMENT central line present, lozano present Diagnosis Problem List Problems Medical Problems: (1) Acute hepatitis Status: Acute (2) Epigastric pain Status: Acute (3) Generalized pruritus Status: Acute (4) Obstructive jaundice Status: Acute Assessment Assessment Problems Medical Problems: (1) Acute hepatitis Status: Acute (2) Epigastric pain Status: Acute (3) Generalized pruritus Status: Acute (4) Obstructive jaundice Status: Acute Problems: Obstructive jaundice due to Pancreatic cancer. PLAN: POD #5 Transferred out of ICU to surgical floor. PT/OT epidural for pain control TPN for nutrition labs good, hb 7.8 stable Procedure Performed:05/08/19 whipple procedure (specifically: pyloric sparing, pancreaticogastrostomy), G- tube placement Plan Plan of Care Problems Medical Problems: (1) Acute hepatitis Status: Acute (2) Epigastric pain Status: Acute (3) Generalized pruritus Status: Acute (4) Obstructive jaundice Status: Acute Comment Review of Relevant I have reviewed the following items betty (where applicable) has been applied. Labs Laboratory Tests Test 05/12/19 11:37 05/12/19 16:59 05/12/19 23:56 05/13/19 05:00 Glucose (Fingerstick) 257 mg/dL (70-99) 285 mg/dL (70-99) 266 mg/dL (70-99) Sodium Level 136 mmol/L (136-145) Potassium Level 4.5 mmol/L (3.5-5.1) Chloride Level 102 mmol/L (98-107) Carbon Dioxide Level 25 mmol/L (21-32) Anion Gap 9 (6-14) Blood Urea Nitrogen 18 mg/dL (7-20) Creatinine 0.9 mg/dL (0.6-1.0) Estimated GFR (Cockcroft-Gault) 60.1 Glucose Level 320 mg/dL (70-99) Calcium Level 8.0 mg/dL (8.5-10.1) Phosphorus Level 3.8 mg/dL (2.6-4.7) Magnesium Level 2.2 mg/dL (1.8-2.4) Test 05/13/19 06:27 05/13/19 08:47 Glucose (Fingerstick) 279 mg/dL (70-99) 297 mg/dL (70-99) Microbiology 04/26/19 Urine Culture - Final, Complete 04/26/19 Urine Culture Result 1 (QUEENIE) - Final, Complete Medications Current Medications Hydromorphone HCl 30 ml @ 0 mls/hr CONT PRN PRN IV PER PROTOCOL; Start 05/13/19 at 09:30 Naloxone HCl (Narcan) 0.4 mg PRN Q2MIN PRN IV SEE INSTRUCTIONS; Start 05/13/19 at 09:15; Status UNV Sodium Acetate 90 meq/Potassium Chloride 50 meq/ Potassium Phosphate 24 mmol/ Magnesium Sulfate 18 meq/Calcium Gluconate 10 meq/ Multivitamins 10 ml/Chromium/ Copper/Manganese/ Seleni/Zn 1 ml/ Insulin Human Regular 7 unit/ Total Parenteral Nutrition/Amino Acids/Dextrose/ Fat Emulsion Intravenous 1,512 ml @ 63 mls/hr TPN CONT IV Last administered on 05/12/19at 22:28; Start 05/12/19 at 22:00; Stop 05/13/19 at 21:59 Sodium Chloride 1,000 ml @ 25 mls/hr Q24H IV ; Start 05/13/19 at 09:06; Status UNV Vitals/I & O Vital Sign - Last 24 Hours 05/12/19 05/12/19 05/12/19 05/12/19 11:00 16:00 19:00 20:00 Temp 98.2 98.5 97.9 98.2 98.5 97.9 Pulse 78 74 86 Resp 14 14 18 B/P (MAP) 116/69 (85) 125/67 (86) 130/65 (86) Pulse Ox 95 98 94 O2 Delivery Room Air Room Air Room Air Nasal Cannula O2 Flow Rate 2.0 05/12/19 05/13/19 05/13/19 23:00 03:00 07:00 Temp 98.4 98.1 97.9 98.4 98.1 97.9 Pulse 84 83 81 Resp 18 18 18 B/P (MAP) 118/64 (82) 121/68 (85) 118/83 (95) Pulse Ox 94 94 100 O2 Delivery Room Air Room Air Room Air Intake and Output 05/12/19 05/12/19 05/13/19 14:59 22:59 06:59 Intake Total 2116 ml Output Total 70 ml 1020 ml 1130 ml Balance -70 ml -1020 ml 986 ml BONNY BEST MD May 13, 2019 09:35
[2019-05-13] MEDS ORDERED: HYDROmorphone STANDARD PCA 12 MG/30 ML SYRINGE. IV ONE (09:47)
[2019-05-13] MEDS: CHOLESTYRAMINE/ASPARTAME 4 GM PACKET PO SCH ×2 (10:00→22:00)
[2019-05-13] MEDS: HYDROmorphone 12mg/30ml PCA 30 ML IV PRN (10:21)
[2019-05-13 11:00] VITALS: BP 150/76
--- NOTE | 2019-05-13 11:26 | PDOC ---
Subjective: Subjective: Has passed gas and some stool, NG and epidural out, has been up with therapy. Objective: Vital Signs: Vital Signs Date Time Temp Pulse Resp B/P (MAP) Pulse Ox O2 Delivery O2 Flow Rate FiO2 05/13/19 11:08 18 Room Air 05/13/19 07:00 97.9 81 118/83 (95) 100 97.9 05/12/19 20:00 2.0 Labs: Laboratory Tests Test 05/12/19 11:37 05/12/19 16:59 05/12/19 23:56 05/13/19 05:00 Glucose (Fingerstick) 257 mg/dL 285 mg/dL 266 mg/dL Sodium Level 136 mmol/L Potassium Level 4.5 mmol/L Chloride Level 102 mmol/L Carbon Dioxide Level 25 mmol/L Anion Gap 9 Blood Urea Nitrogen 18 mg/dL Creatinine 0.9 mg/dL Estimated GFR (Cockcroft-Gault) 60.1 Glucose Level 320 mg/dL Calcium Level 8.0 mg/dL Phosphorus Level 3.8 mg/dL Magnesium Level 2.2 mg/dL Test 05/13/19 06:27 05/13/19 08:47 Glucose (Fingerstick) 279 mg/dL 297 mg/dL PE: GEN: NAD - nurses present - [employer] not working LUNGS: room air HEART: RRR ABD: soft NEURO/PSYCH: A & O �3 A/P: S/p whipple -- Improving, continue support. CORI PEDERSEN May 13, 2019 11:26
--- NOTE | 2019-05-13 12:22 | NUR ---
SS following up with discharge planning. Pt accepted at [facility], ; fax [phone], pending insurance determination. SS will continue to follow for discharge planning.
[2019-05-13] MEDS: TPN PER PHARMACY MC PRN (13:49)
--- NOTE | 2019-05-13 13:54 | NUR ---
Pharmacy TPN Dosing Note S: ANDREW LA is a 83 year old F Currently receiving Central Continuous TPN started 05/09/19 B:Pertinent PMH: NPO/POST WHIPPLE Height: 5 feet, 3 inches Weight: 74.928943 kg Current diet: NPO LABS: Sodium: 136 Potassium: 4.5 Chloride: 102 Calcium: 8.0 Corrected Calcium: 9.84 Magnesium: 2.2 CO2: 25 SCr: 0.9 Glucose: 266-320 Albumin: 1.7 AST: 42 ALT: 90 TPN FORMULA: TPN TYPE: Central Continuous AMINO ACIDS: 85 gm DEXTROSE: 250 gm LIPIDS: 20 gm SODIUM CHLORIDE: - mEq SODIUM ACETATE: 90 mEq SODIUM PHOSPHATE: - mmol POTASSIUM CHLORIDE: 30 mEq POTASSIUM ACETATE: - mEq POTASSIUM PHOSPHATE: 24 mmol MAGNESIUM: 18 mEq CALCIUM: 10 mEq INSULIN: 7 units MULTIPLE VITAMIN: 10 ml TRACE ELEMENTS: 1 ml(s) TPN PLAN: -Continue macros per window shade cutter and mounter recommendation -Potassium trending up, will decreased KCl to 30 mEq/day. (Note TPN also contains KPhos). -Blood glucose values reamin elevated, SSI ordered RN today giving full SSI doses in addition to 7 units of insulin added to TPN. Patient is not diabetic. For these reasons will not add any more insulin in TPN today. -BMP, mag, phos tomorrow per protocol. R: Continue TPN with slight decrease in KCl. Will monitor electrolytes, glucose, and tolerance to TPN. RADHA OROZCO, [facility], 05/13/19 [id number]
[2019-05-13 15:00] VITALS: BP 129/60
[2019-05-13 19:00] VITALS: BP 147/83
[2019-05-13] MEDS: AMITRIPTYLINE HCL 25 MG TABLET. PO SCH (21:00)
[2019-05-13] MEDS ORDERED: TOTAL PARENTERAL NUTRITION IV SCH ×11 (22:00)
[2019-05-13] MEDS ORDERED: DEXTROSE 70% IV SCH ×11 (22:00)
[2019-05-13] MEDS ORDERED: AMINO ACID IV SCH ×11 (22:00)
[2019-05-13] MEDS ORDERED: [UNRECOGNIZED DRUG - OTHER] IV SCH ×11 (22:00)
[2019-05-13 23:00] VITALS: BP 129/71
[2019-05-14 03:31] VITALS: BP 136/75
[2019-05-14 04:24] LABS: BASO % 1 % (0-3); EOS # 0.2 x10^3/uL (0.0-0.7); EOS % 2 % (0-3); HEMOGLOBIN 8.4 g/dL (12.0-15.5); LYMPH # 1.3 x10^3/uL (1.0-4.8); LYMPH % 13 % (24-48); MEAN CORPUSCULAR HEMOGLOBIN 31 pg (25-35); MEAN CORPUSCULAR HGB CONC 34 g/dL (31-37); MEAN CORPUSCULAR VOLUME 92 fL (79-100); MONO % 10 % (0-9); NEUT # 7.3 x10^3/uL (1.8-7.7); NEUT % 74 % (31-73); PLATELET COUNT 365 x10^3/uL (140-400); RED BLOOD COUNT 2.71 x10^6/uL (3.50-5.40); WHITE BLOOD COUNT 9.8 x10^3/uL (4.0-11.0)
[2019-05-14 04:59] LABS: ALBUMIN 1.7 g/dL (3.4-5.0); ALBUMIN/GLOBULIN RATIO 0.4 (1.0-1.7); CALCIUM 8.2 mg/dL (8.5-10.1); GFR 53.2; PHOSPHORUS 3.5 mg/dL (2.6-4.7); POTASSIUM 4.2 mmol/L (3.5-5.1); TOTAL BILIRUBIN 0.8 mg/dL (0.2-1.0); TOTAL PROTEIN 5.8 g/dL (6.4-8.2)
[2019-05-14] MEDS: ONDANSETRON PF 4 MG/2 ML VIAL. IV PRN (05:12)
[2019-05-14] MEDS: PANTOPRAZOLE IV PUSH 40 MG VIAL. IVP SCH ×2 (06:15→18:03)
[2019-05-14 07:00] VITALS: BP 141/79
[2019-05-14] MEDS: SERTRALINE 50 MG TABLET. PO SCH (08:25)
[2019-05-14] MEDS: traMADol 50 MG TABLET PO SCH ×4 (08:25→21:58)
[2019-05-14] MEDS: GABAPENTIN 300 MG CAPSULE. PO SCH ×3 (08:25→21:58)
[2019-05-14] MEDS: POLYETHYLENE GLYCOL 3350 17 GM PACKET. PO SCH (08:26)
[2019-05-14] MEDS: INSULIN LISPRO 300 UNITS/3 ML VIAL. SQ SCH ×3 (08:33→18:09)
[2019-05-14] MEDS: HEPARIN for SUB-Q USE 5,000 UNIT/ML VIAL. SQ SCH ×2 (08:33→22:18)
--- NOTE | 2019-05-14 08:36 | NUR ---
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
--- NOTE | 2019-05-14 09:56 | PDOC ---
PROGRESS NOTES Subjective Subjective feeling better today Objective Objective Vital Signs Date Time Temp Pulse Resp B/P (MAP) Pulse Ox O2 Delivery O2 Flow Rate FiO2 05/14/19 08:00 Room Air 05/14/19 07:00 98.4 90 14 141/79 (99) 96 98.4 05/13/19 08:20 2.0 Intake and Output 05/14/19 06:59 Intake Total 2116 ml Output Total 2150 ml Balance -34 ml Intake Oral 60 ml IV Total 1006 ml Other 1050 ml Output Urine Total 1850 ml Drainage Total 300 ml Physical Exam Physical Exam epidural wire rope sales representative removed yesterday Abdomen: Soft, Other (tom serosang) Heart: Regular rate Extremities: No edema General: Alert, Oriented X3, Cooperative, No acute distress HEENT: Other (ng) Lungs: Clear to auscultation MUSCULOSKELETAL: No deformity, Osteoarthritic changes both hands Neck: Supple Neuro: Normal speech Psych/Mental Status: Mental status NL Skin: No rashes COMMENT central line present, lozano present Diagnosis Problem List Problems Medical Problems: (1) Acute hepatitis Status: Acute (2) Epigastric pain Status: Acute (3) Generalized pruritus Status: Acute (4) Obstructive jaundice Status: Acute Assessment Assessment Problems Medical Problems: (1) Acute hepatitis Status: Acute (2) Epigastric pain Status: Acute (3) Generalized pruritus Status: Acute (4) Obstructive jaundice Status: Acute Problems: Obstructive jaundice due to Pancreatic cancer. PLAN: POD #6 Epidural ER NURSE removed PT/OT/rehab labs good ,LFT normal TPN for nutrition labs good, hb 7.8 stable Procedure Performed:05/08/19 whipple procedure (specifically: pyloric sparing, pancreaticogastrostomy), G- tube placement Plan Plan of Care Problems Medical Problems: (1) Acute hepatitis Status: Acute (2) Epigastric pain Status: Acute (3) Generalized pruritus Status: Acute (4) Obstructive jaundice Status: Acute Comment Review of Relevant I have reviewed the following items betty (where applicable) has been applied. Labs Laboratory Tests Test 05/13/19 11:55 05/13/19 16:32 05/13/19 20:18 05/14/19 03:50 Glucose (Fingerstick) 269 mg/dL (70-99) 221 mg/dL (70-99) 224 mg/dL (70-99) White Blood Count 9.8 x10^3/uL (4.0-11.0) Red Blood Count 2.71 x10^6/uL (3.50-5.40) Hemoglobin 8.4 g/dL (12.0-15.5) Hematocrit 25.0 % (36.0-47.0) Mean Corpuscular Volume 92 fL (79-100) Mean Corpuscular Hemoglobin 31 pg (25-35) Mean Corpuscular Hemoglobin Concent 34 g/dL (31-37) Red Cell Distribution Width 16.0 % (11.5-14.5) Platelet Count 365 x10^3/uL (140-400) Neutrophils (%) (Auto) 74 % (31-73) Lymphocytes (%) (Auto) 13 % (24-48) Monocytes (%) (Auto) 10 % (0-9) Eosinophils (%) (Auto) 2 % (0-3) Basophils (%) (Auto) 1 % (0-3) Neutrophils # (Auto) 7.3 x10^3/uL (1.8-7.7) Lymphocytes # (Auto) 1.3 x10^3/uL (1.0-4.8) Monocytes # (Auto) 1.0 x10^3/uL (0.0-1.1) Eosinophils # (Auto) 0.2 x10^3/uL (0.0-0.7) Basophils # (Auto) 0.0 x10^3/uL (0.0-0.2) Sodium Level 134 mmol/L (136-145) Potassium Level 4.2 mmol/L (3.5-5.1) Chloride Level 100 mmol/L (98-107) Carbon Dioxide Level 25 mmol/L (21-32) Anion Gap 9 (6-14) Blood Urea Nitrogen 20 mg/dL (7-20) Creatinine 1.0 mg/dL (0.6-1.0) Estimated GFR (Cockcroft-Gault) 53.2 BUN/Creatinine Ratio 20 (6-20) Glucose Level 330 mg/dL (70-99) Calcium Level 8.2 mg/dL (8.5-10.1) Phosphorus Level 3.5 mg/dL (2.6-4.7) Magnesium Level 2.0 mg/dL (1.8-2.4) Total Bilirubin 0.8 mg/dL (0.2-1.0) Aspartate Amino Transf (AST/SGOT) 31 U/L (15-37) Alanine Aminotransferase (ALT/SGPT) 54 U/L (14-59) Alkaline Phosphatase 110 U/L (46-116) Total Protein 5.8 g/dL (6.4-8.2) Albumin 1.7 g/dL (3.4-5.0) Albumin/Globulin Ratio 0.4 (1.0-1.7) Test 05/14/19 07:04 Glucose (Fingerstick) 315 mg/dL (70-99) Microbiology 04/26/19 Urine Culture - Final, Complete 04/26/19 Urine Culture Result 1 (QUEENIE) - Final, Complete Medications Current Medications Sodium Acetate 90 meq/Potassium Chloride 30 meq/ Potassium Phosphate 24 mmol/ Magnesium Sulfate 18 meq/Calcium Gluconate 10 meq/ Multivitamins 10 ml/Chromium/ Copper/Manganese/ Seleni/Zn 1 ml/ Insulin Human Regular 7 unit/ Total Parenteral Nutrition/Amino Acids/Dextrose/ Fat Emulsion Intravenous 1,512 ml @ 63 mls/hr TPN CONT IV Last administered on 05/13/19at 22:07; Start 05/13/19 at 22:00; Stop 05/14/19 at 21:59 Vitals/I & O Vital Sign - Last 24 Hours 05/13/19 05/13/19 05/13/19 05/13/19 10:22 11:00 11:08 15:00 Temp 98.0 98.6 98.0 98.6 Pulse 82 85 Resp 18 18 18 18 B/P (MAP) 150/76 (100) 129/60 (83) Pulse Ox 97 98 O2 Delivery Room Air Room Air Room Air Room Air 05/13/19 05/13/19 05/13/19 05/14/19 19:00 20:00 23:00 03:31 Temp 99.0 98.3 98.8 99.0 98.3 98.8 Pulse 94 99 87 Resp 18 18 20 B/P (MAP) 147/83 (104) 129/71 (90) 136/75 (95) Pulse Ox 92 97 O2 Delivery Room Air Room Air Room Air Room Air 05/14/19 05/14/19 07:00 08:00 Temp 98.4 98.4 Pulse 90 Resp 14 B/P (MAP) 141/79 (99) Pulse Ox 96 O2 Delivery Room Air Room Air Intake and Output 05/13/19 05/13/19 05/14/19 14:59 22:59 06:59 Intake Total 2116 ml Output Total 80 ml 1650 ml 420 ml Balance -80 ml -1650 ml 1696 ml BONNY BEST MD May 14, 2019 09:56
[2019-05-14] MEDS: CHOLESTYRAMINE/ASPARTAME 4 GM PACKET PO SCH ×2 (10:00→22:18)
--- NOTE | 2019-05-14 10:55 | PDOC ---
Subjective: Subjective: Pain is managed, taking some clear liquids, has been up with therapy. Objective: Vital Signs: Vital Signs Date Time Temp Pulse Resp B/P (MAP) Pulse Ox O2 Delivery O2 Flow Rate FiO2 05/14/19 08:00 Room Air 05/14/19 07:00 98.4 90 14 141/79 (99) 96 98.4 05/13/19 08:20 2.0 Labs: Laboratory Tests Test 05/13/19 11:55 05/13/19 16:32 05/13/19 20:18 05/14/19 07:04 Glucose (Fingerstick) 269 mg/dL (70-99) 221 mg/dL (70-99) 224 mg/dL (70-99) 315 mg/dL (70-99) PE: GEN: NAD, up in chair LUNGS: room air NEURO/PSYCH: A & O �3 A/P: S/p Whipple -- Stable GI-howell. CORI PEDERSEN May 14, 2019 10:55
[2019-05-14 11:00] VITALS: BP 110/73
[2019-05-14] MEDS: TPN PER PHARMACY MC PRN (13:19)
--- NOTE | 2019-05-14 13:20 | NUR ---
Pharmacy TPN Dosing Note S: ANDREW LA is a 83 year old F Currently receiving Central Continuous TPN started 05/09/19 B:Pertinent PMH: NPO/POST WHIPPLE Current diet: starting CLEAR LIQUIDS today LABS: Sodium: 134 Potassium: 4.2 Chloride: 100 Calcium: 8.2 Corrected Calcium: 10.04 Magnesium: 2.0 CO2: 25 SCr: 1.0 Glucose: 315 Albumin: 1.7 AST: 31 ALT: 54 TPN FORMULA: TPN TYPE: Central Continuous AMINO ACIDS: 85 gm DEXTROSE: 250 gm LIPIDS: 20 gm SODIUM CHLORIDE: - mEq SODIUM ACETATE: 90 mEq SODIUM PHOSPHATE: - mmol POTASSIUM CHLORIDE: 30 mEq POTASSIUM ACETATE: - mEq POTASSIUM PHOSPHATE: 24 mmol MAGNESIUM: 18 mEq CALCIUM: 10 mEq INSULIN: 7 units MULTIPLE VITAMIN: 10 ml TRACE ELEMENTS: 1 ml(s) TPN PLAN: -Continue same TPN as patient to start clears today R: Continue TPN Will monitor electrolytes, glucose, and tolerance to TPN. HÉCTOR BECKWITH [facility], 05/14/19 [id number]
[2019-05-14] MEDS ORDERED: HYDROmorphone STANDARD PCA 12 MG/30 ML SYRINGE. IV ONE (13:41)
--- NOTE | 2019-05-14 13:42 | PDOC ---
SURGICAL PROGRESS NOTE Subjective Pt feels better, deborah clears, no N/V Vital Signs Vital Signs Date Time Temp Pulse Resp B/P (MAP) Pulse Ox O2 Delivery O2 Flow Rate FiO2 05/14/19 11:00 98.5 91 14 110/73 (85) 96 Room Air 98.5 05/13/19 08:20 2.0 I&O Intake and Output 05/14/19 07:00 Intake Total 2116 ml Output Total 2150 ml Balance -34 ml Intake Oral 60 ml IV Total 1006 ml Other 1050 ml Output Urine Total 1850 ml Drainage Total 300 ml PATIENT HAS A LOZANO: No (d/c'ed) General: Alert, Oriented X3, Cooperative, No acute distress Abdomen: Soft, No tenderness, Other (Drains serosang) Labs Laboratory Tests Test 05/12/19 16:59 05/12/19 23:56 05/13/19 05:00 05/13/19 06:27 Glucose (Fingerstick) 285 mg/dL (70-99) 266 mg/dL (70-99) 279 mg/dL (70-99) Sodium Level 136 mmol/L (136-145) Potassium Level 4.5 mmol/L (3.5-5.1) Chloride Level 102 mmol/L (98-107) Carbon Dioxide Level 25 mmol/L (21-32) Anion Gap 9 (6-14) Blood Urea Nitrogen 18 mg/dL (7-20) Creatinine 0.9 mg/dL (0.6-1.0) Estimated GFR (Cockcroft-Gault) 60.1 Glucose Level 320 mg/dL (70-99) Calcium Level 8.0 mg/dL (8.5-10.1) Phosphorus Level 3.8 mg/dL (2.6-4.7) Magnesium Level 2.2 mg/dL (1.8-2.4) Test 05/13/19 08:47 05/13/19 11:55 05/13/19 16:32 05/13/19 20:18 Glucose (Fingerstick) 297 mg/dL (70-99) 269 mg/dL (70-99) 221 mg/dL (70-99) 224 mg/dL (70-99) Test 05/14/19 03:50 05/14/19 07:04 05/14/19 11:44 White Blood Count 9.8 x10^3/uL (4.0-11.0) Red Blood Count 2.71 x10^6/uL (3.50-5.40) Hemoglobin 8.4 g/dL (12.0-15.5) Hematocrit 25.0 % (36.0-47.0) Mean Corpuscular Volume 92 fL (79-100) Mean Corpuscular Hemoglobin 31 pg (25-35) Mean Corpuscular Hemoglobin Concent 34 g/dL (31-37) Red Cell Distribution Width 16.0 % (11.5-14.5) Platelet Count 365 x10^3/uL (140-400) Neutrophils (%) (Auto) 74 % (31-73) Lymphocytes (%) (Auto) 13 % (24-48) Monocytes (%) (Auto) 10 % (0-9) Eosinophils (%) (Auto) 2 % (0-3) Basophils (%) (Auto) 1 % (0-3) Neutrophils # (Auto) 7.3 x10^3/uL (1.8-7.7) Lymphocytes # (Auto) 1.3 x10^3/uL (1.0-4.8) Monocytes # (Auto) 1.0 x10^3/uL (0.0-1.1) Eosinophils # (Auto) 0.2 x10^3/uL (0.0-0.7) Basophils # (Auto) 0.0 x10^3/uL (0.0-0.2) Sodium Level 134 mmol/L (136-145) Potassium Level 4.2 mmol/L (3.5-5.1) Chloride Level 100 mmol/L (98-107) Carbon Dioxide Level 25 mmol/L (21-32) Anion Gap 9 (6-14) Blood Urea Nitrogen 20 mg/dL (7-20) Creatinine 1.0 mg/dL (0.6-1.0) Estimated GFR (Cockcroft-Gault) 53.2 BUN/Creatinine Ratio 20 (6-20) Glucose Level 330 mg/dL (70-99) Calcium Level 8.2 mg/dL (8.5-10.1) Phosphorus Level 3.5 mg/dL (2.6-4.7) Magnesium Level 2.0 mg/dL (1.8-2.4) Total Bilirubin 0.8 mg/dL (0.2-1.0) Aspartate Amino Transf (AST/SGOT) 31 U/L (15-37) Alanine Aminotransferase (ALT/SGPT) 54 U/L (14-59) Alkaline Phosphatase 110 U/L (46-116) Total Protein 5.8 g/dL (6.4-8.2) Albumin 1.7 g/dL (3.4-5.0) Albumin/Globulin Ratio 0.4 (1.0-1.7) Glucose (Fingerstick) 315 mg/dL (70-99) 316 mg/dL (70-99) Laboratory Tests Test 05/13/19 16:32 05/13/19 20:18 05/14/19 03:50 05/14/19 07:04 Glucose (Fingerstick) 221 mg/dL (70-99) 224 mg/dL (70-99) 315 mg/dL (70-99) White Blood Count 9.8 x10^3/uL (4.0-11.0) Red Blood Count 2.71 x10^6/uL (3.50-5.40) Hemoglobin 8.4 g/dL (12.0-15.5) Hematocrit 25.0 % (36.0-47.0) Mean Corpuscular Volume 92 fL (79-100) Mean Corpuscular Hemoglobin 31 pg (25-35) Mean Corpuscular Hemoglobin Concent 34 g/dL (31-37) Red Cell Distribution Width 16.0 % (11.5-14.5) Platelet Count 365 x10^3/uL (140-400) Neutrophils (%) (Auto) 74 % (31-73) Lymphocytes (%) (Auto) 13 % (24-48) Monocytes (%) (Auto) 10 % (0-9) Eosinophils (%) (Auto) 2 % (0-3) Basophils (%) (Auto) 1 % (0-3) Neutrophils # (Auto) 7.3 x10^3/uL (1.8-7.7) Lymphocytes # (Auto) 1.3 x10^3/uL (1.0-4.8) Monocytes # (Auto) 1.0 x10^3/uL (0.0-1.1) Eosinophils # (Auto) 0.2 x10^3/uL (0.0-0.7) Basophils # (Auto) 0.0 x10^3/uL (0.0-0.2) Sodium Level 134 mmol/L (136-145) Potassium Level 4.2 mmol/L (3.5-5.1) Chloride Level 100 mmol/L (98-107) Carbon Dioxide Level 25 mmol/L (21-32) Anion Gap 9 (6-14) Blood Urea Nitrogen 20 mg/dL (7-20) Creatinine 1.0 mg/dL (0.6-1.0) Estimated GFR (Cockcroft-Gault) 53.2 BUN/Creatinine Ratio 20 (6-20) Glucose Level 330 mg/dL (70-99) Calcium Level 8.2 mg/dL (8.5-10.1) Phosphorus Level 3.5 mg/dL (2.6-4.7) Magnesium Level 2.0 mg/dL (1.8-2.4) Total Bilirubin 0.8 mg/dL (0.2-1.0) Aspartate Amino Transf (AST/SGOT) 31 U/L (15-37) Alanine Aminotransferase (ALT/SGPT) 54 U/L (14-59) Alkaline Phosphatase 110 U/L (46-116) Total Protein 5.8 g/dL (6.4-8.2) Albumin 1.7 g/dL (3.4-5.0) Albumin/Globulin Ratio 0.4 (1.0-1.7) Test 05/14/19 11:44 Glucose (Fingerstick) 316 mg/dL (70-99) Problem List Problems Medical Problems: (1) Acute hepatitis Status: Acute (2) Epigastric pain Status: Acute (3) Generalized pruritus Status: Acute (4) Obstructive jaundice Status: Acute Assessment/Plan s/p whipple doing well lozano out today cont clears OOB d/c planning. await path MATT CALLEJAS MD May 14, 2019 13:42
[2019-05-14] MEDS: HYDROmorphone 12mg/30ml PCA 30 ML IV PRN (13:58)
[2019-05-14] MEDS: diphenhydrAMINE 50 MG/ML VIAL IVP PRN (14:14)
[2019-05-14] MEDS: IV NORMAL SALINE 1000ML BAG 1,000 ML IV SCH (14:44)
[2019-05-14 15:00] VITALS: BP 115/76
[2019-05-14 19:00] VITALS: BP 117/72
[2019-05-14] MEDS: AMITRIPTYLINE HCL 25 MG TABLET. PO SCH (21:58)
[2019-05-14] MEDS ORDERED: DEXTROSE 70% IV SCH ×11 (22:00)
[2019-05-14] MEDS ORDERED: [UNRECOGNIZED DRUG - OTHER] IV SCH ×11 (22:00)
[2019-05-14] MEDS ORDERED: AMINO ACID IV SCH ×11 (22:00)
[2019-05-14] MEDS ORDERED: TOTAL PARENTERAL NUTRITION IV SCH ×11 (22:00)
[2019-05-14 23:00] VITALS: BP 107/72
[2019-05-15 03:00] VITALS: BP 123/66
[2019-05-15] MEDS: PANTOPRAZOLE IV PUSH 40 MG VIAL. IVP SCH ×2 (05:28→17:51)
[2019-05-15 05:45] LABS: CALCIUM 8.3 mg/dL (8.5-10.1); CREATININE 1.1 mg/dL (0.6-1.0); GFR 47.7; MAGNESIUM 2.3 mg/dL (1.8-2.4); PHOSPHORUS 3.5 mg/dL (2.6-4.7); POTASSIUM 4.3 mmol/L (3.5-5.1)
[2019-05-15 07:00] VITALS: BP 107/59
[2019-05-15] MEDS: CHOLESTYRAMINE/ASPARTAME 4 GM PACKET PO SCH ×2 (08:06→22:00)
[2019-05-15] MEDS: POLYETHYLENE GLYCOL 3350 17 GM PACKET. PO SCH (08:07)
[2019-05-15] MEDS: GABAPENTIN 300 MG CAPSULE. PO SCH ×3 (08:09→20:51)
[2019-05-15] MEDS: traMADol 50 MG TABLET PO SCH ×4 (08:09→20:51)
[2019-05-15] MEDS: SERTRALINE 50 MG TABLET. PO SCH (08:10)
[2019-05-15] MEDS: HEPARIN for SUB-Q USE 5,000 UNIT/ML VIAL. SQ SCH ×2 (08:26→20:55)
[2019-05-15] MEDS: INSULIN LISPRO 300 UNITS/3 ML VIAL. SQ SCH ×3 (08:26→17:57)
--- NOTE | 2019-05-15 09:49 | PDOC ---
PROGRESS NOTES Subjective Subjective doing well Objective Objective Vital Signs Date Time Temp Pulse Resp B/P (MAP) Pulse Ox O2 Delivery O2 Flow Rate FiO2 05/15/19 08:26 Room Air 05/15/19 07:00 98.7 81 18 107/59 (75) 94 98.7 05/14/19 20:00 2.0 Intake and Output 05/15/19 06:59 Intake Total 275 ml Output Total 1115 ml Balance -840 ml Intake Oral 275 ml Output Urine Total 850 ml Drainage Total 265 ml # Voids 2 Physical Exam Physical Exam epidural test conductor removed yesterday Abdomen: Soft, No tenderness, Other (Drains serosang) Heart: Regular rate Extremities: No edema General: Alert, Oriented X3, Cooperative, No acute distress HEENT: Other (ng) Lungs: Clear to auscultation MUSCULOSKELETAL: No deformity, Osteoarthritic changes both hands Neck: Supple Neuro: Normal speech Psych/Mental Status: Mental status NL Skin: No rashes COMMENT central line present, lozano removed Diagnosis Problem List Problems Medical Problems: (1) Acute hepatitis Status: Acute (2) Epigastric pain Status: Acute (3) Generalized pruritus Status: Acute (4) Obstructive jaundice Status: Acute Assessment Assessment Problems Medical Problems: (1) Acute hepatitis Status: Acute (2) Epigastric pain Status: Acute (3) Generalized pruritus Status: Acute (4) Obstructive jaundice Status: Acute Problems: Obstructive jaundice due to Pancreatic cancer. 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 SNU screen Procedure Performed:05/08/19 whipple procedure (specifically: pyloric sparing, pancreaticogastrostomy), G- tube placement Plan Plan of Care Problems Medical Problems: (1) Acute hepatitis Status: Acute (2) Epigastric pain Status: Acute (3) Generalized pruritus Status: Acute (4) Obstructive jaundice Status: Acute Comment Review of Relevant I have reviewed the following items betty (where applicable) has been applied. Labs Laboratory Tests Test 05/14/19 11:44 05/14/19 17:02 05/14/19 20:33 05/15/19 05:10 Glucose (Fingerstick) 316 mg/dL (70-99) 264 mg/dL (70-99) 223 mg/dL (70-99) Sodium Level 135 mmol/L (136-145) Potassium Level 4.3 mmol/L (3.5-5.1) Chloride Level 100 mmol/L (98-107) Carbon Dioxide Level 27 mmol/L (21-32) Anion Gap 8 (6-14) Blood Urea Nitrogen 24 mg/dL (7-20) Creatinine 1.1 mg/dL (0.6-1.0) Estimated GFR (Cockcroft-Gault) 47.7 Glucose Level 313 mg/dL (70-99) Calcium Level 8.3 mg/dL (8.5-10.1) Phosphorus Level 3.5 mg/dL (2.6-4.7) Magnesium Level 2.3 mg/dL (1.8-2.4) Test 05/15/19 07:36 Glucose (Fingerstick) 321 mg/dL (70-99) Microbiology 04/26/19 Urine Culture - Final, Complete 04/26/19 Urine Culture Result 1 (QUEENIE) - Final, Complete Medications Current Medications Sodium Acetate 90 meq/Potassium Chloride 30 meq/ Potassium Phosphate 24 mmol/ Magnesium Sulfate 18 meq/Calcium Gluconate 10 meq/ Multivitamins 10 ml/Chromium/ Copper/Manganese/ Seleni/Zn 1 ml/ Insulin Human Regular 7 unit/ Total Parenteral Nutrition/Amino Acids/Dextrose/ Fat Emulsion Intravenous 1,512 ml @ 63 mls/hr TPN CONT IV Last administered on 05/14/19at 22:18; Start 05/14/19 at 22:00; Stop 05/15/19 at 21:59 Vitals/I & O Vital Sign - Last 24 Hours 05/14/19 05/14/19 05/14/19 05/14/19 11:00 13:58 14:44 15:00 Temp 98.5 98.4 98.5 98.4 Pulse 91 92 Resp 14 16 B/P (MAP) 110/73 (85) 115/76 (89) Pulse Ox 96 95 O2 Delivery Room Air Room Air Room Air Room Air 05/14/19 05/14/19 05/14/19 05/14/19 19:00 20:00 22:18 23:00 Temp 98.5 98.8 98.5 98.8 Pulse 91 65 Resp 18 20 18 B/P (MAP) 117/72 (87) 107/72 (84) Pulse Ox 97 97 93 O2 Delivery Room Air Room Air Room Air Room Air O2 Flow Rate 2.0 05/14/19 05/15/19 05/15/19 05/15/19 23:57 03:00 07:00 08:26 Temp 99.4 98.7 99.4 98.7 Pulse 91 81 Resp 20 18 18 B/P (MAP) 123/66 (85) 107/59 (75) Pulse Ox 93 94 94 O2 Delivery Room Air Room Air Room Air Room Air Intake and Output 05/14/19 05/14/19 05/15/19 14:59 22:59 06:59 Intake Total 75 ml 200 ml Output Total 115 ml 100 ml 900 ml Balance -115 ml -25 ml -700 ml BONNY BEST MD May 15, 2019 09:49
--- NOTE | 2019-05-15 10:02 | PDOC ---
SURGICAL PROGRESS NOTE Subjective pain managed no n/v + flatus Vital Signs Vital Signs Date Time Temp Pulse Resp B/P (MAP) Pulse Ox O2 Delivery O2 Flow Rate FiO2 05/15/19 08:26 Room Air 05/15/19 07:00 98.7 81 18 107/59 (75) 94 98.7 05/14/19 20:00 2.0 I&O Intake and Output 05/15/19 06:59 Intake Total 275 ml Output Total 1115 ml Balance -840 ml Intake Oral 275 ml Output Urine Total 850 ml Drainage Total 265 ml # Voids 2 General: Alert, Oriented X3, Cooperative, No acute distress Abdomen: Soft, Other (drains serosang) Labs Laboratory Tests Test 05/13/19 11:55 05/13/19 16:32 05/13/19 20:18 05/14/19 03:50 Glucose (Fingerstick) 269 mg/dL (70-99) 221 mg/dL (70-99) 224 mg/dL (70-99) White Blood Count 9.8 x10^3/uL (4.0-11.0) Red Blood Count 2.71 x10^6/uL (3.50-5.40) Hemoglobin 8.4 g/dL (12.0-15.5) Hematocrit 25.0 % (36.0-47.0) Mean Corpuscular Volume 92 fL (79-100) Mean Corpuscular Hemoglobin 31 pg (25-35) Mean Corpuscular Hemoglobin Concent 34 g/dL (31-37) Red Cell Distribution Width 16.0 % (11.5-14.5) Platelet Count 365 x10^3/uL (140-400) Neutrophils (%) (Auto) 74 % (31-73) Lymphocytes (%) (Auto) 13 % (24-48) Monocytes (%) (Auto) 10 % (0-9) Eosinophils (%) (Auto) 2 % (0-3) Basophils (%) (Auto) 1 % (0-3) Neutrophils # (Auto) 7.3 x10^3/uL (1.8-7.7) Lymphocytes # (Auto) 1.3 x10^3/uL (1.0-4.8) Monocytes # (Auto) 1.0 x10^3/uL (0.0-1.1) Eosinophils # (Auto) 0.2 x10^3/uL (0.0-0.7) Basophils # (Auto) 0.0 x10^3/uL (0.0-0.2) Sodium Level 134 mmol/L (136-145) Potassium Level 4.2 mmol/L (3.5-5.1) Chloride Level 100 mmol/L (98-107) Carbon Dioxide Level 25 mmol/L (21-32) Anion Gap 9 (6-14) Blood Urea Nitrogen 20 mg/dL (7-20) Creatinine 1.0 mg/dL (0.6-1.0) Estimated GFR (Cockcroft-Gault) 53.2 BUN/Creatinine Ratio 20 (6-20) Glucose Level 330 mg/dL (70-99) Calcium Level 8.2 mg/dL (8.5-10.1) Phosphorus Level 3.5 mg/dL (2.6-4.7) Magnesium Level 2.0 mg/dL (1.8-2.4) Total Bilirubin 0.8 mg/dL (0.2-1.0) Aspartate Amino Transf (AST/SGOT) 31 U/L (15-37) Alanine Aminotransferase (ALT/SGPT) 54 U/L (14-59) Alkaline Phosphatase 110 U/L (46-116) Total Protein 5.8 g/dL (6.4-8.2) Albumin 1.7 g/dL (3.4-5.0) Albumin/Globulin Ratio 0.4 (1.0-1.7) Test 05/14/19 07:04 05/14/19 11:44 05/14/19 17:02 05/14/19 20:33 Glucose (Fingerstick) 315 mg/dL (70-99) 316 mg/dL (70-99) 264 mg/dL (70-99) 223 mg/dL (70-99) Test 05/15/19 05:10 05/15/19 07:36 Sodium Level 135 mmol/L (136-145) Potassium Level 4.3 mmol/L (3.5-5.1) Chloride Level 100 mmol/L (98-107) Carbon Dioxide Level 27 mmol/L (21-32) Anion Gap 8 (6-14) Blood Urea Nitrogen 24 mg/dL (7-20) Creatinine 1.1 mg/dL (0.6-1.0) Estimated GFR (Cockcroft-Gault) 47.7 Glucose Level 313 mg/dL (70-99) Calcium Level 8.3 mg/dL (8.5-10.1) Phosphorus Level 3.5 mg/dL (2.6-4.7) Magnesium Level 2.3 mg/dL (1.8-2.4) Glucose (Fingerstick) 321 mg/dL (70-99) Laboratory Tests Test 05/14/19 11:44 05/14/19 17:02 05/14/19 20:33 05/15/19 05:10 Glucose (Fingerstick) 316 mg/dL (70-99) 264 mg/dL (70-99) 223 mg/dL (70-99) Sodium Level 135 mmol/L (136-145) Potassium Level 4.3 mmol/L (3.5-5.1) Chloride Level 100 mmol/L (98-107) Carbon Dioxide Level 27 mmol/L (21-32) Anion Gap 8 (6-14) Blood Urea Nitrogen 24 mg/dL (7-20) Creatinine 1.1 mg/dL (0.6-1.0) Estimated GFR (Cockcroft-Gault) 47.7 Glucose Level 313 mg/dL (70-99) Calcium Level 8.3 mg/dL (8.5-10.1) Phosphorus Level 3.5 mg/dL (2.6-4.7) Magnesium Level 2.3 mg/dL (1.8-2.4) Test 05/15/19 07:36 Glucose (Fingerstick) 321 mg/dL (70-99) Problem List Problems Medical Problems: (1) Acute hepatitis Status: Acute (2) Epigastric pain Status: Acute (3) Generalized pruritus Status: Acute (4) Obstructive jaundice Status: Acute Assessment/Plan full liquids continue g tube to TRUNG Pedersen APRN May 15, 2019 10:02
[2019-05-15 11:00] VITALS: BP 132/63
[2019-05-15] MEDS: TPN PER PHARMACY MC PRN (13:04)
--- NOTE | 2019-05-15 13:05 | NUR ---
Pharmacy TPN Dosing Note S: ANDREW LA is a 83 year old F Currently receiving Central Continuous TPN started 05/09/19 B:Pertinent PMH: POST WHIPPLE Current diet: FULL LIQUIDS LABS: Sodium: 135 Potassium: 4.3 Chloride: 100 Calcium: 8.3 Corrected Calcium: 10.14 Magnesium: 2.3 CO2: 27 SCr: 1.1 Glucose: 228 Albumin: 1.7 AST: 31 ALT: 54 TPN FORMULA: TPN TYPE: Central Continuous AMINO ACIDS: 85 gm DEXTROSE: 250 gm LIPIDS: 20 gm SODIUM CHLORIDE: - mEq SODIUM ACETATE: 90 mEq SODIUM PHOSPHATE: - mmol POTASSIUM CHLORIDE: 30 mEq POTASSIUM ACETATE: - mEq POTASSIUM PHOSPHATE: 24 mmol MAGNESIUM: 18 mEq CALCIUM: 10 mEq INSULIN: 7 units MULTIPLE VITAMIN: 10 ml TRACE ELEMENTS: 1 ml(s) TPN PLAN: -Continue same TPN as diet advancing R: Continue TPN Will monitor electrolytes, glucose, and tolerance to TPN. [facility]CTOR [facility], 05/15/19 0169
[2019-05-15] MEDS: IV NORMAL SALINE 1000ML BAG 1,000 ML IV SCH (13:29)
--- NOTE | 2019-05-15 13:39 | PDOC ---
G I PROGRESS NOTE Subjective Few specific complaints. Tolerating clears. Pain controlled. Physical Exam Lungs clear. RRR Abdomen soft, not distended. Review of Relevant I have reviewed the following items betty (where applicable) has been applied. Labs Laboratory Tests Test 05/13/19 16:32 05/13/19 20:18 05/14/19 03:50 05/14/19 07:04 Glucose (Fingerstick) 221 mg/dL (70-99) 224 mg/dL (70-99) 315 mg/dL (70-99) White Blood Count 9.8 x10^3/uL (4.0-11.0) Red Blood Count 2.71 x10^6/uL (3.50-5.40) Hemoglobin 8.4 g/dL (12.0-15.5) Hematocrit 25.0 % (36.0-47.0) Mean Corpuscular Volume 92 fL (79-100) Mean Corpuscular Hemoglobin 31 pg (25-35) Mean Corpuscular Hemoglobin Concent 34 g/dL (31-37) Red Cell Distribution Width 16.0 % (11.5-14.5) Platelet Count 365 x10^3/uL (140-400) Neutrophils (%) (Auto) 74 % (31-73) Lymphocytes (%) (Auto) 13 % (24-48) Monocytes (%) (Auto) 10 % (0-9) Eosinophils (%) (Auto) 2 % (0-3) Basophils (%) (Auto) 1 % (0-3) Neutrophils # (Auto) 7.3 x10^3/uL (1.8-7.7) Lymphocytes # (Auto) 1.3 x10^3/uL (1.0-4.8) Monocytes # (Auto) 1.0 x10^3/uL (0.0-1.1) Eosinophils # (Auto) 0.2 x10^3/uL (0.0-0.7) Basophils # (Auto) 0.0 x10^3/uL (0.0-0.2) Sodium Level 134 mmol/L (136-145) Potassium Level 4.2 mmol/L (3.5-5.1) Chloride Level 100 mmol/L (98-107) Carbon Dioxide Level 25 mmol/L (21-32) Anion Gap 9 (6-14) Blood Urea Nitrogen 20 mg/dL (7-20) Creatinine 1.0 mg/dL (0.6-1.0) Estimated GFR (Cockcroft-Gault) 53.2 BUN/Creatinine Ratio 20 (6-20) Glucose Level 330 mg/dL (70-99) Calcium Level 8.2 mg/dL (8.5-10.1) Phosphorus Level 3.5 mg/dL (2.6-4.7) Magnesium Level 2.0 mg/dL (1.8-2.4) Total Bilirubin 0.8 mg/dL (0.2-1.0) Aspartate Amino Transf (AST/SGOT) 31 U/L (15-37) Alanine Aminotransferase (ALT/SGPT) 54 U/L (14-59) Alkaline Phosphatase 110 U/L (46-116) Total Protein 5.8 g/dL (6.4-8.2) Albumin 1.7 g/dL (3.4-5.0) Albumin/Globulin Ratio 0.4 (1.0-1.7) Test 05/14/19 11:44 05/14/19 17:02 05/14/19 20:33 05/15/19 05:10 Glucose (Fingerstick) 316 mg/dL (70-99) 264 mg/dL (70-99) 223 mg/dL (70-99) Sodium Level 135 mmol/L (136-145) Potassium Level 4.3 mmol/L (3.5-5.1) Chloride Level 100 mmol/L (98-107) Carbon Dioxide Level 27 mmol/L (21-32) Anion Gap 8 (6-14) Blood Urea Nitrogen 24 mg/dL (7-20) Creatinine 1.1 mg/dL (0.6-1.0) Estimated GFR (Cockcroft-Gault) 47.7 Glucose Level 313 mg/dL (70-99) Calcium Level 8.3 mg/dL (8.5-10.1) Phosphorus Level 3.5 mg/dL (2.6-4.7) Magnesium Level 2.3 mg/dL (1.8-2.4) Test 05/15/19 07:36 05/15/19 11:52 Glucose (Fingerstick) 321 mg/dL (70-99) 228 mg/dL (70-99) Laboratory Tests Test 05/14/19 17:02 05/14/19 20:33 05/15/19 05:10 05/15/19 07:36 Glucose (Fingerstick) 264 mg/dL (70-99) 223 mg/dL (70-99) 321 mg/dL (70-99) Sodium Level 135 mmol/L (136-145) Potassium Level 4.3 mmol/L (3.5-5.1) Chloride Level 100 mmol/L (98-107) Carbon Dioxide Level 27 mmol/L (21-32) Anion Gap 8 (6-14) Blood Urea Nitrogen 24 mg/dL (7-20) Creatinine 1.1 mg/dL (0.6-1.0) Estimated GFR (Cockcroft-Gault) 47.7 Glucose Level 313 mg/dL (70-99) Calcium Level 8.3 mg/dL (8.5-10.1) Phosphorus Level 3.5 mg/dL (2.6-4.7) Magnesium Level 2.3 mg/dL (1.8-2.4) Test 05/15/19 11:52 Glucose (Fingerstick) 228 mg/dL (70-99) Microbiology 04/26/19 Urine Culture - Final, Complete 04/26/19 Urine Culture Result 1 (QUEENIE) - Final, Complete Formal path from OR pending, but verbal report of cholangiocarcinoma with 10/[address] Vitals/I & O Vital Sign - Last 24 Hours 05/14/19 05/14/19 05/14/19 05/14/19 13:58 14:44 15:00 19:00 Temp 98.4 98.5 98.4 98.5 Pulse 92 91 Resp 16 18 B/P (MAP) 115/76 (89) 117/72 (87) Pulse Ox 95 97 O2 Delivery Room Air Room Air Room Air Room Air 05/14/19 05/14/19 05/14/19 05/14/19 20:00 22:18 23:00 23:57 Temp 98.8 98.8 Pulse 65 Resp 20 18 20 B/P (MAP) 107/72 (84) Pulse Ox 97 93 93 O2 Delivery Room Air Room Air Room Air Room Air O2 Flow Rate 2.0 05/15/19 05/15/19 05/15/19 05/15/19 03:00 07:00 08:26 10:56 Temp 99.4 98.7 99.4 98.7 Pulse 91 81 Resp 18 18 B/P (MAP) 123/66 (85) 107/59 (75) Pulse Ox 94 94 O2 Delivery Room Air Room Air Room Air Room Air 05/15/19 05/15/19 11:00 13:29 Temp 98.0 98.0 Pulse 92 Resp 18 B/P (MAP) 132/63 (86) Pulse Ox 96 O2 Delivery Room Air Room Air Intake and Output 05/14/19 05/14/19 05/15/19 15:00 23:00 07:00 Intake Total 75 ml 200 ml Output Total 115 ml 100 ml 900 ml Balance -115 ml -25 ml -700 ml Problem List Problems Medical Problems: (1) Acute hepatitis Status: Acute (2) Epigastric pain Status: Acute (3) Generalized pruritus Status: Acute (4) Obstructive jaundice Status: Acute Assessment Cholangiocarcinoma, s/p Whipple. Doing very well considering. One positive node. Plan of Care Note Continue post-op care. Consider oncology opinion re: any need for adjuvant therapy. SRINIVASA OTERO MD May 15, 2019 13:39
[2019-05-15 15:00] VITALS: BP 128/62
[2019-05-15] MEDS ORDERED: HYDROmorphone STANDARD PCA 12 MG/30 ML SYRINGE. IV ONE (16:18)
[2019-05-15] MEDS: HYDROmorphone 12mg/30ml PCA 30 ML IV PRN (16:42)
[2019-05-15 19:30] VITALS: BP 121/61
[2019-05-15] MEDS: AMITRIPTYLINE HCL 25 MG TABLET. PO SCH (20:51)
[2019-05-15] MEDS ORDERED: DEXTROSE 70% IV SCH ×11 (22:00)
[2019-05-15] MEDS ORDERED: [UNRECOGNIZED DRUG - OTHER] IV SCH ×11 (22:00)
[2019-05-15] MEDS ORDERED: TOTAL PARENTERAL NUTRITION IV SCH ×11 (22:00)
[2019-05-15] MEDS ORDERED: AMINO ACID IV SCH ×11 (22:00)
[2019-05-15 23:18] VITALS: BP 108/54
[2019-05-16 03:22] VITALS: BP 110/56
[2019-05-16] MEDS: PANTOPRAZOLE IV PUSH 40 MG VIAL. IVP SCH ×2 (05:16→17:36)
[2019-05-16 05:45] LABS: CALCIUM 8.1 mg/dL (8.5-10.1); GFR 53.2; POTASSIUM 4.3 mmol/L (3.5-5.1)
[2019-05-16 07:00] VITALS: BP 127/68
--- NOTE | 2019-05-16 08:34 | PDOC ---
SURGICAL PROGRESS NOTE Subjective Pt with c/o fatigue, but otherwise doing well, deborah full liquids, passing stools every other day, pain controlled Vital Signs Vital Signs Date Time Temp Pulse Resp B/P (MAP) Pulse Ox O2 Delivery O2 Flow Rate FiO2 05/16/19 07:35 Room Air 05/16/19 03:22 98.4 90 20 110/56 (74) 96 98.4 I&O Intake and Output 05/16/19 07:00 Intake Total 740 ml Output Total 1370 ml Balance -630 ml Intake Oral 740 ml Gastric Drainage Total 1200 ml Drainage Total 170 ml # Voids 4 General: Alert, Oriented X3, Cooperative, No acute distress Abdomen: Soft, No tenderness, Other (MIRIAM serosang) Labs Laboratory Tests Test 05/14/19 11:44 05/14/19 17:02 05/14/19 20:33 05/15/19 05:10 Glucose (Fingerstick) 316 mg/dL (70-99) 264 mg/dL (70-99) 223 mg/dL (70-99) Sodium Level 135 mmol/L (136-145) Potassium Level 4.3 mmol/L (3.5-5.1) Chloride Level 100 mmol/L (98-107) Carbon Dioxide Level 27 mmol/L (21-32) Anion Gap 8 (6-14) Blood Urea Nitrogen 24 mg/dL (7-20) Creatinine 1.1 mg/dL (0.6-1.0) Estimated GFR (Cockcroft-Gault) 47.7 Glucose Level 313 mg/dL (70-99) Calcium Level 8.3 mg/dL (8.5-10.1) Phosphorus Level 3.5 mg/dL (2.6-4.7) Magnesium Level 2.3 mg/dL (1.8-2.4) Test 05/15/19 07:36 05/15/19 11:52 05/15/19 17:07 05/15/19 20:53 Glucose (Fingerstick) 321 mg/dL (70-99) 228 mg/dL (70-99) 229 mg/dL (70-99) 213 mg/dL (70-99) Test 05/16/19 05:20 Sodium Level 137 mmol/L (136-145) Potassium Level 4.3 mmol/L (3.5-5.1) Chloride Level 102 mmol/L (98-107) Carbon Dioxide Level 27 mmol/L (21-32) Anion Gap 8 (6-14) Blood Urea Nitrogen 21 mg/dL (7-20) Creatinine 1.0 mg/dL (0.6-1.0) Estimated GFR (Cockcroft-Gault) 53.2 Glucose Level 299 mg/dL (70-99) Calcium Level 8.1 mg/dL (8.5-10.1) Laboratory Tests Test 05/15/19 11:52 05/15/19 17:07 05/15/19 20:53 05/16/19 05:20 Glucose (Fingerstick) 228 mg/dL (70-99) 229 mg/dL (70-99) 213 mg/dL (70-99) Sodium Level 137 mmol/L (136-145) Potassium Level 4.3 mmol/L (3.5-5.1) Chloride Level 102 mmol/L (98-107) Carbon Dioxide Level 27 mmol/L (21-32) Anion Gap 8 (6-14) Blood Urea Nitrogen 21 mg/dL (7-20) Creatinine 1.0 mg/dL (0.6-1.0) Estimated GFR (Cockcroft-Gault) 53.2 Glucose Level 299 mg/dL (70-99) Calcium Level 8.1 mg/dL (8.5-10.1) Problem List Problems Medical Problems: (1) Acute hepatitis Status: Acute (2) Epigastric pain Status: Acute (3) Generalized pruritus Status: Acute (4) Obstructive jaundice Status: Acute Assessment/Plan path pending wean 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
--- NOTE | 2019-05-16 09:07 | PATHOLOGY ---
[facility] Accession Number: [id number] . 01 Material submitted: . PART A: abdomen - OMENTAL MASS - OP PART B: lymph node - HEPATIC ARTERY LYMPH NODE - FS PART C: bile duct - COMMON BILE DUCT - FS PART D: vein - PORTAL VEIN MARGIN PART E: pancreas - WHIPPLE SPECIMEN PART F: duodenum - MASS OVER DUODENUM . 01 Clinical history: . Acute bile duct obstruction. . 02 Frozen section diagnosis: . INTRAOPERATIVE CONSULTATION WITH FROZEN SECTION: (Dr. Kane Carranza) . FSA1. Omental mass: - Fibrosis, negative for tumor. . The results are reported to Dr. Branch in the operating room. (JPM:mml; 05/09/2019) . FSB1: Hepatic artery lymph node: - Negative for tumor. . The results are reported to Dr. Lund in the operating room. (JPM:pit 05/08/2019) . FSC1. Common bile duct and attached tissue: - INVASIVE ADENOCARCINOMA OF ADJACENT TISSUE WITH FOCAL INVOLVEMENT OF WALL OF DISTAL COMMON BILE DUCT MARGIN. . The results are reported to Dr. Branch in the operating room. (JPM/db; 05/12/2019) . FROZEN SECTION GROSS DESCRIPTION: A. Received fresh for intraoperative consultation, labeled - "Natalya Cook, Omental mass", is an irregular segment of yellow fatty-appearing tissue which measures up to 2.5 cm in length, 1.2 cm in width and 0.3 cm in thickness. This is partially covered by pink glistening membrane. There is an eccentrically-located slightly firm area within the specimen. This firm area is submitted for frozen section as FSA1. The tissue remaining from frozen section is submitted for permanent section as A1. The remaining specimen is submitted as A2. (JPM:mml; 05/09/2019) . B. The specimen is received fresh for intraoperative consultation and is designated "hepatic artery lymph node". This consists of an irregular segment of yellow-red fatty appearing tissue showing focal brown cautery change, measuring 2.0 x 1.4 x 0.6 cm. Sectioning reveals an eccentrically located pale yellowish brown soft nodule measuring up to 0.9 cm. There may be an additional small nodule adjacent to this nodule. These are submitted for frozen section as FSB1. The tissue remaining from frozen section is submitted for permanent section as B1. (JPM:pit 05/08/2019) . C. The specimen is received fresh for intraoperative consultation and is designated "common bile duct stitch proximal". This consists of a short segment of pink-red bile duct measuring approximately 1.4 cm in length and 1.1 cm in width. There is a stitch attached to the proximal margin. Attached to one side of the bile duct is a roughly C-shaped segment of yellow-red soft tissue which measures up to approximately 6.5 cm in length and 1.5 cm in width. The tissue adjacent to the distal end of the bile duct is pink to yellow-red, firm and somewhat indurated. The margin of the soft tissue in this area is inked with black ink. On sectioning, this area has a caraballo, gritty cut surface and measures up to approximately 1.0 cm. A section including the distal common duct margin and adjacent soft tissue containing the mass is submitted for intraoperative consultation with frozen section as FSC1. The tissue remaining from frozen section is submitted for permanent sections as C1. (JPM/db; 05/12/2019) . Frozen sections performed at [facility], [address] [place] [address], [place] [address]. CYN/QLM . 02 Diagnosis: A. Focal mesothelial-lined fibroadipose tissue, omental mass: - Focal reactive fibrosis and fat necrosis - negative for tumor. . B. Lymph node, hepatic artery lymph node: - Reactive changes with lipogranulomata - negative for tumor. . C. Common bile duct and attached soft tissue and portion of pancreas, common bile duct segmental resection: - INVASIVE ADENOCARCINOMA, BILIARY TYPE, MODERATELY TO FOCALLY POORLY DIFFERENTIATED, APPEARING TO ARISE FROM COMMON BILE DUCT, WITH TUMOR INVASION BEYOND WALL OF BILE DUCT INTO ADJACENT SOFT TISSUES AND FOCAL MINIMAL INVASION OF ATTACHED PANCREATIC TISSUE. - Proximal margin of common bile duct negative for tumor. - FOCAL TUMOR INVOLVEMENT OF RADIAL SOFT TISSUE MARGIN OF RESECTION. - PERINEURAL TUMOR INVASION IDENTIFIED. - METASTATIC ADENOCARCINOMA INVOLVING ONE OF EIGHT LYMPH NODES. . D. Segment of pancreatic tissue, portal vein margin: - SMALL FOCUS OF INVASIVE ADENOCARCINOMA INVOLVING PANCREAS AND PERIPANCREATIC SOFT TISSUE. . E. Duodenum and attached pancreas, pancreaticoduodenectomy (Whipple resection): - FOCAL RESIDUAL INVASIVE ADENOCARCINOMA, BILIARY TYPE, MODERATELY TO POORLY DIFFERENTIATED, INVOLVING COMMON BILE DUCT WITH TUMOR INVASION BEYOND WALL OF BILE DUCT INTO ADJACENT SOFT TISSUES AND FOCAL MINIMAL TUMOR INVASION OF PANCREATIC TISSUE. - Twenty-nine pancreaticoduodenal lymph nodes negative for tumor (0/29). - Proximal duodenal margin of resection negative for tumor. - Distal duodenal margin of resection negative for tumor. - Pancreatic neck margin of resection negative for tumor. - Pancreatic uncinate/retroperitoneal margin negative for tumor. - Duodenal diverticulum. . F. Fibroadipose tissue, mass over duodenum: - Focal reactive fibrosis and inflammation-negative for tumor. (JPM/db/pit; 05/14/2019) LBQ/05/15/2019 . 02 Comment: The results are discussed with Dr. Branch on 05/14/2019. . Surgical Pathology Cancer Case Summary . DISTAL EXTRAHEPATIC BILE DUCTS: . Procedure ___ Pancreaticoduodenectomy (Whipple resection) . Tumor Site ___ Common bile duct + ___ Extrapancreatic . Tumor Size ___ Cannot be determined: Greater than 1.2 cm and less than 2.0 cm in greatest dimension) . Histologic Type ___ Adenocarcinoma, biliary type . Histologic Grade ___ G2: Moderately to focally poorly differentiated . Tumor Extension ___ Tumor invades the pancreas + ___ Tumor involves posterior surface of pancreas . Depth of Tumor Extension ___ Tumor invades with a depth >12 mm . Margins ___ All margins are uninvolved by invasive carcinoma and high-grade intraepithelial neoplasia / dysplasia Margins examined: Proximal bile duct, pancreatic neck/parenchymal, uncinate, proximal duodenal, and distal duodenal. + Distance of invasive carcinoma from closest margin: 1 cm + Specify closest margin: Common bile duct margin . Lymphovascular Invasion ___ Not identified . Perineural Invasion ___ Present . Regional Lymph Nodes Number of Lymph Nodes Involved: 1 . Number of Lymph Nodes Examined: 37 . Pathologic Stage Classification (pTNM, AJCC 8th Edition) . Primary Tumor (pT) ___ pT3: Tumor invades the bile duct wall with a depth greater than 12 mm . Regional Lymph Nodes (pN) ___ pN1:Metastasis in one to three regional lymph nodes . + Additional Pathologic Findings + ___ Other: Duodenal diverticulum . (JPM:pit 05/15/2019) . 02 Electronically signed: . Kane Carranza MD, Pathologist NPI- [id number] . 01 Gross description: . A,B and C. SEE FROZEN SECTION GROSS DESCRIPTION. . C. The remainder of the external margin of the tissue attached to the distal end of the common bile duct is inked with blue ink. Sections are submitted as follows: . C2 - Proximal bile duct margin C3, C4 - Remainder of submitted common bile duct . C5-C9 - Soft tissue attached to distal end of common bile duct from proximal to distal. (JPM/db; 05/12/2019) . D. Received in formalin labeled "Natalya Cook, portal vein margin fresh" is a fragment of caraballo-yellow lobulated tissue measuring 2.4 x 2.2 x 0.2 cm. The specimen is submitted without sectioning in cassette D1. . E. Received in formalin labeled "Natalya Cook, Whipple specimen double stitch duodenum single stitch pancreas" is a pancreaticoduodenectomy specimen consisting of a segment of duodenum (14.0 x 3.2 cm) and a portion of attached pancreas (8.1 x 5.7 x 4.7 cm). The proximal and distal duodenal margins are closed with staple lines. The distal aspect of the duodenum displays a dilated outpouching, possibly a diverticulum, measuring 3.3 x 3.0 x 1.7 cm, located 2.2 cm to the distal margin. The duodenum has a smooth pink-caraballo serosal surface. The specimen is inked as follows: Pancreatic margin-blue, bile duct margin-orange, vascular groove-green, uncinate/retroperitoneal margin-black. The pancreatic duct is probed and opened and is inked blue. The bile duct is probed and opened and is inked green. The specimen is serially sectioned to reveal that the pancreatic parenchyma is caraballo-yellow and lobulated without a definitive lesion. There is a caraballo-white fibrotic area within the soft tissue adjacent to the bile duct margin, measuring 1.5 x 1.5 x 1.4 cm. This area may possibly be consistent with a tumor. This area is located adjacent to the proximal duodenal margin, 12.5 cm to the distal duodenal margin, grossly abuts the bile duct margin, 0.5 cm to the pancreatic resection margin, and 1.5 cm to the uncinate/retroperitoneal margin. This area is located 4.1 cm to the ampulla of Vater. This area abuts the pancreatic parenchyma, with possible involvement. No other lesions or abnormalities are identified. Multiple possible lymph nodes are palpated, ranging from 0.3-0.6 cm in greatest dimension. Oil And [employer] Field Technician sections are submitted as follows: . E1 proximal duodenal margin E2 distal duodenal margin E3 claim representative cross section of duodenal diverticulum E4-E5 pancreatic margin, en face E6 bile duct margin, en face E7-E8 uncinate/retroperitoneal margin, perpendicular sections E9 pancreatic duct and bile duct to ampulla of Vater E10-E11 entire possible tumor E12-E14 pancreatic parenchyma adjacent to possible tumor E15-E16 additional pancreatic parenchyma E17-E25 claim representative peripancreatic fat with possible lymph nodes . F. Received in formalin labeled "Cook, Natalya, mass over duodenum" are two fragments of caraballo-yellow fibrotic fibroadipose tissue measuring 3.3 x 1.7 x 0.5 cm and 1.8 x 1.2 x 0.6 cm. The pieces are serially sectioned and submitted in cassettes F1-F2 respectively. ([facility] [place]; 05/11/2019) SYC/QLM . 02 Pathologist provided ICD-10: C24.0, C25.9, C77.2, K65.4 . 02 CPT . 961885, 795556, 746612, 732744, 427650, 167415, 290615, 968789, 540309, 694297 Specimen Comment: A courtesy copy of this report has been sent to Specimen Comment: [phone], , . Specimen Comment: Report sent to ,DR ABDULLAHI / DR SIMMONS Performed at: [address], [place], [place] [address] MD Dani Guerrero MD Phone: [phone] Performed at: 02 [facility] [address] [place], [place] [id number] MD Kane Carranza MD Phone: [phone]
[2019-05-16] MEDS: traMADol 50 MG TABLET PO SCH ×4 (09:18→21:50)
[2019-05-16] MEDS: SERTRALINE 50 MG TABLET. PO SCH (09:18)
[2019-05-16] MEDS: POLYETHYLENE GLYCOL 3350 17 GM PACKET. PO SCH (09:18)
[2019-05-16] MEDS: GABAPENTIN 300 MG CAPSULE. PO SCH ×3 (09:18→21:50)
[2019-05-16] MEDS: INSULIN LISPRO 300 UNITS/3 ML VIAL. SQ SCH ×3 (09:20→17:35)
[2019-05-16] MEDS: HEPARIN for SUB-Q USE 5,000 UNIT/ML VIAL. SQ SCH ×2 (09:21→21:00)
--- NOTE | 2019-05-16 09:39 | PDOC ---
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 operator removed yesterday Abdomen: Soft, No tenderness, Other (MIRIAM serosang) Heart: Regular rate Extremities: No edema General: Alert, Oriented X3, Cooperative, No acute distress HEENT: Other (ng) Lungs: Clear to auscultation MUSCULOSKELETAL: No deformity, Osteoarthritic changes both hands Neck: Supple Neuro: Normal speech Psych/Mental Status: Mental status NL Skin: No rashes COMMENT central line present, lozano removed Diagnosis Problem List Problems Medical Problems: (1) Acute hepatitis Status: Acute (2) Epigastric pain Status: Acute (3) Generalized pruritus Status: Acute (4) Obstructive jaundice Status: Acute Assessment Assessment Problems Medical Problems: (1) Acute hepatitis Status: Acute (2) Epigastric pain Status: Acute (3) Generalized pruritus Status: Acute (4) Obstructive jaundice Status: Acute Problems: Obstructive jaundice due to Pancreatic cancer. PLAN: POD #8 MENTAL HEALTH ORDERLY removed PT/OT/rehab labs good ,LFT normal TPN for nutrition labs good, hb 8.4 stable advancing diet. Select/SNU screen for sunday Procedure Performed:05/08/19 whipple procedure (specifically: pyloric sparing, pancreaticogastrostomy), G- tube placement Plan Plan of Care Problems Medical Problems: (1) Acute hepatitis Status: Acute (2) Epigastric pain Status: Acute (3) Generalized pruritus Status: Acute (4) Obstructive jaundice Status: Acute Comment Review of Relevant I have reviewed the following items betty (where applicable) has been applied. Labs Laboratory Tests Test 05/15/19 11:52 05/15/19 17:07 05/15/19 20:53 05/16/19 05:20 Glucose (Fingerstick) 228 mg/dL (70-99) 229 mg/dL (70-99) 213 mg/dL (70-99) Sodium Level 137 mmol/L (136-145) Potassium Level 4.3 mmol/L (3.5-5.1) Chloride Level 102 mmol/L (98-107) Carbon Dioxide Level 27 mmol/L (21-32) Anion Gap 8 (6-14) Blood Urea Nitrogen 21 mg/dL (7-20) Creatinine 1.0 mg/dL (0.6-1.0) Estimated GFR (Cockcroft-Gault) 53.2 Glucose Level 299 mg/dL (70-99) Calcium Level 8.1 mg/dL (8.5-10.1) Microbiology 04/26/19 Urine Culture - Final, Complete 04/26/19 Urine Culture Result 1 (QUEENIE) - Final, Complete Medications Current Medications Sodium Acetate 90 meq/Potassium Chloride 30 meq/ Potassium Phosphate 24 mmol/ Magnesium Sulfate 18 meq/Calcium Gluconate 10 meq/ Multivitamins 10 ml/Chromium/ Copper/Manganese/ Seleni/Zn 1 ml/ Insulin Human Regular 7 unit/ Total Parenteral Nutrition/Amino Acids/Dextrose/ Fat Emulsion Intravenous 1,512 ml @ 63 mls/hr TPN CONT IV Last administered on 05/15/19at 22:07; Start 05/15/19 at 22:00; Stop 05/16/19 at 21:59 Vitals/I & O Vital Sign - Last 24 Hours 05/15/19 05/15/19 05/15/19 05/15/19 10:56 11:00 13:29 14:31 Temp 98.0 98.0 Pulse 92 Resp 18 B/P (MAP) 132/63 (86) Pulse Ox 96 O2 Delivery Room Air Room Air Room Air Room Air 05/15/19 05/15/19 05/15/19 05/15/19 15:00 16:42 17:58 17:58 Temp 97.9 97.9 Pulse 86 Resp 18 B/P (MAP) 128/62 (84) Pulse Ox 94 O2 Delivery Room Air Room Air Room Air Room Air 05/15/19 05/15/19 05/15/19 05/15/19 19:03 19:30 20:00 20:55 Temp 98.5 98.5 Pulse 98 Resp 18 20 B/P (MAP) 121/61 (81) Pulse Ox 96 96 O2 Delivery Room Air Room Air Room Air Room Air 05/15/19 05/15/19 05/16/19 05/16/19 22:57 23:18 03:22 07:00 Temp 98.4 98.4 97.8 98.4 98.4 97.8 Pulse 89 90 86 Resp 20 20 20 18 B/P (MAP) 108/54 (72) 110/56 (74) 127/68 (87) Pulse Ox 96 95 96 96 O2 Delivery Room Air Room Air Room Air Room Air 05/16/19 05/16/19 07:35 09:21 O2 Delivery Room Air Room Air Intake and Output 05/15/19 05/15/19 05/16/19 15:00 23:00 07:00 Intake Total 500 ml 240 ml Output Total 60 ml 1270 ml 40 ml Balance -60 ml -770 ml 200 ml BONNY BEST MD May 16, 2019 09:39
[2019-05-16] MEDS: CHOLESTYRAMINE/ASPARTAME 4 GM PACKET PO SCH ×2 (10:00→21:50)
--- NOTE | 2019-05-16 10:04 | NUR ---
SS following up with discharge planning. SS received request to screen pt for [facility], ; fax [phone]. SS phoned and faxed referral. SS will await acceptance decision and insurance determination and will proceed accordingly. Pt accepted at [facility]. SS phoned and faxed clinical updates to [facility]. SS will continue to follow for discharge planning.
--- NOTE | 2019-05-16 10:35 | NUR ---
Resumed LIS with G-tube.
[2019-05-16] MEDS: HYDROcodone/APAP 5/325MG 1 TAB TABLET PO PRN ×2 (10:48→14:38)
--- NOTE | 2019-05-16 10:51 | PDOC ---
Subjective: Subjective: Son (a physician) present, asks about path. Pt feeling well and says maybe plans for rehab on Sunday. Objective: Vital Signs: Vital Signs Date Time Temp Pulse Resp B/P (MAP) Pulse Ox O2 Delivery O2 Flow Rate FiO2 05/16/19 10:28 Room Air 05/16/19 07:00 97.8 86 18 127/68 (87) 96 97.8 Labs: Laboratory Tests Test 05/15/19 11:52 05/15/19 17:07 05/15/19 20:53 Glucose (Fingerstick) 228 mg/dL (70-99) 229 mg/dL (70-99) 213 mg/dL (70-99) Imaging: Material submitted: . PART A: abdomen - OMENTAL MASS - OP PART B: lymph node - HEPATIC ARTERY LYMPH NODE - FS PART C: bile duct - COMMON BILE DUCT - FS PART D: vein - PORTAL VEIN MARGIN PART E: pancreas - WHIPPLE SPECIMEN PART F: duodenum - MASS OVER DUODENUM . 01 Clinical history: . Acute bile duct obstruction. . 02 Frozen section diagnosis: . INTRAOPERATIVE CONSULTATION WITH FROZEN SECTION: (Dr. Kane Carranza) . FSA1. Omental mass: - Fibrosis, negative for tumor. . The results are reported to Dr. Branch in the operating room. (JPM:mm; 05/09/2019) . FSB1: Hepatic artery lymph node: - Negative for tumor. . The results are reported to Dr. Lund in the operating room. (JPM:[facility] 05/08/2019) . FSC1. Common bile duct and attached tissue: - INVASIVE ADENOCARCINOMA OF ADJACENT TISSUE WITH FOCAL INVOLVEMENT OF WALL OF DISTAL COMMON BILE DUCT MARGIN. . Diagnosis: A. Focal mesothelial-lined fibroadipose tissue, omental mass: - Focal reactive fibrosis and fat necrosis - negative for tumor. . B. Lymph node, hepatic artery lymph node: - Reactive changes with lipogranulomata - negative for tumor. . C. Common bile duct and attached soft tissue and portion of pancreas, common bile duct segmental resection: - INVASIVE ADENOCARCINOMA, BILIARY TYPE, MODERATELY TO FOCALLY POORLY DIFFERENTIATED, APPEARING TO ARISE FROM COMMON BILE DUCT, WITH TUMOR INVASION BEYOND WALL OF BILE DUCT INTO ADJACENT SOFT TISSUES AND FOCAL MINIMAL INVASION OF ATTACHED PANCREATIC TISSUE. - Proximal margin of common bile duct negative for tumor. - FOCAL TUMOR INVOLVEMENT OF RADIAL SOFT TISSUE MARGIN OF RESECTION. - PERINEURAL TUMOR INVASION IDENTIFIED. - METASTATIC ADENOCARCINOMA INVOLVING ONE OF EIGHT LYMPH NODES. . D. Segment of pancreatic tissue, portal vein margin: - SMALL FOCUS OF INVASIVE ADENOCARCINOMA INVOLVING PANCREAS AND PERIPANCREATIC SOFT TISSUE. . E. Duodenum and attached pancreas, pancreaticoduodenectomy (Whipple resection): - FOCAL RESIDUAL INVASIVE ADENOCARCINOMA, BILIARY TYPE, MODERATELY TO POORLY DIFFERENTIATED, INVOLVING COMMON BILE DUCT WITH TUMOR INVASION BEYOND WALL OF BILE DUCT INTO ADJACENT SOFT TISSUES AND FOCAL MINIMAL TUMOR INVASION OF PANCREATIC TISSUE. - Twenty-nine pancreaticoduodenal lymph nodes negative for tumor (0/29). - Proximal duodenal margin of resection negative for tumor. - Distal duodenal margin of resection negative for tumor. - Pancreatic neck margin of resection negative for tumor. - Pancreatic uncinate/retroperitoneal margin negative for tumor. - Duodenal diverticulum. . F. Fibroadipose tissue, mass over duodenum: - Focal reactive fibrosis and inflammation-negative for tumor. PE: GEN: NAD, sitting up in bed NEURO/PSYCH: A & O �3 A/P: S/p Whipple -- Printed pathology report for son. Reviewed w/ Dr. Bingham - will ask oncology to see. CORI PEDERSEN May 16, 2019 10:51
[2019-05-16 11:00] VITALS: BP 116/66
--- NOTE | 2019-05-16 14:24 | NUR ---
Pt's visitor at the desk, stating pt is still having pain. Dr. Key paged.
--- NOTE | 2019-05-16 14:57 | NUR ---
G tube suction on hold.
[2019-05-16 15:00] VITALS: BP 128/72
--- NOTE | 2019-05-16 15:35 | NUR ---
Dr. Key paged re: pain meds. Pt. states PO meds are not working well.
[2019-05-16] MEDS: LORazepam 0.5 MG TABLET PO PRN (15:48)
[2019-05-16] MEDS: ONDANSETRON PF 4 MG/2 ML VIAL. IV PRN (15:49)
--- NOTE | 2019-05-16 16:00 | NUR ---
Gtube suction resumed.
--- NOTE | 2019-05-16 16:12 | NUR ---
Pt. still c/o pain. No call back from Dr. Key. Dr. Arthur paged re: pain meds.
--- NOTE | 2019-05-16 16:22 | NUR ---
Dr. Key returned call, orders received.
--- NOTE | 2019-05-16 16:24 | NUR ---
Dr. Branch returned call, notified of Dr. Key's orders and current pain level. Orders received.
[2019-05-16] MEDS: HYDROmorphone 2 MG/ML VIAL IVP PRN ×2 (16:30→20:42)
[2019-05-16] MEDS ORDERED: HYDROmorphone 2 MG/ML VIAL IV PRN (16:30)
--- NOTE | 2019-05-16 17:06 | NUR ---
Pt. drowsy, easily arousable to name after taking pain meds. Pt. rates pain at 10/10 but states pain is better. Pt. falling asleep during conversation. 2L O2 placed, pt also placed on CO2 monitor. Sating 98%.
[2019-05-16] MEDS: HYDROcodone/APAP 10/325 1 TAB TABLET PO PRN (18:13)
--- NOTE | 2019-05-16 18:26 | NUR ---
Pt sitting in chair with visitor in room. Pt. states her pain is her usual fibromyalgia pain and at home she usually ambulates to soothe it. Pt and visitor verbalized understanding of pain med regimine.
[2019-05-16 19:00] VITALS: BP 132/69
--- NOTE | 2019-05-16 21:12 | CONS ---
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 HISTORY OF PRESENT ILLNESS: The patient is an 83-year-old female who was admitted to [facility] with complaints of 1-week history of pruritus, mary-colored stools, dark urine and decreased appetite. She was seen by Dr. Perez at the office and a CAT scan was ordered. However, she developed significant nausea, vomiting and abdominal pain requiring admission to [facility] on 04/26/2019. CT scan of the abdomen and pelvis on 04/26/2019 revealed no evidence of bowel obstruction, moderate intrahepatic and extrahepatic biliary ductal dilatation. She underwent ERCP on 04/28/2019 which revealed narrowing of the very distal common bile duct with no focal filling defect. She was then evaluated by Dr. Jose Francisco Branch and the patient underwent Whipple procedure, specifically pyloric sparing pancreaticogastrostomy and G-tube placement on 05/08/2019. Pathology revealed invasive adenocarcinoma, biliary type, moderate to focally poorly differentiated, appearing to arise from the common bile duct with tumor invasion beyond the wall of the bile duct into adjacent soft tissues and focal minimal invasion of the attached pancreatic tissue. There was metastatic adenocarcinoma involving 1 out of 8 lymph nodes. Pathology from the duodenum and attached pancreas revealed focal invasive adenocarcinoma and 29 lymph nodes were negative. 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 She is doing quite well postoperatively and I was asked to see the patient for further management of cholangiocarcinoma. PAST MEDICAL HISTORY: Cholecystectomy, depression, hypertension, hyperlipidemia, pneumonia, fibromyalgia, chronic kidney disease. SOCIAL HISTORY: No smoking or alcohol abuse. FAMILY HISTORY: Brother had multiple myeloma. REVIEW OF SYSTEMS: A 12-point review of system was performed. Pertinent positives are mentioned in the history of present illness. Rest of the system review is negative. PHYSICAL EXAMINATION: GENERAL APPEARANCE: The patient is an 83-year-old female who is in no acute cardiorespiratory distress. VITAL SIGNS: Blood pressure 116/66, temperature 98.9. HEENT: Atraumatic, normocephalic. EYES: No icterus. NECK: Supple. CHEST: Bilaterally symmetrical. HEART: S1, S2 normal. ABDOMEN: Soft. Postop dressing in place. Drain is in place. CENTRAL NERVOUS SYSTEM: No focal deficits. LYMPHATICS: No lymphadenopathy. SKIN: No rashes. PSYCHOLOGIC: Mood and affect are appropriate. LABORATORY DATA: WBC 9.8, hemoglobin 8.4, platelet count 365. Hemoglobin at the time of admission was normal at 14.0 on 04/26/2019. Chemistry panel at the time of admission on 04/26/2019 revealed a creatinine of 1.1, total bilirubin 10.3, AST 329, ALT 418, alkaline phosphatase 493. Total protein 8.3, albumin 3.5. CA 19-9 was 135 on 05/03/2019. CEA level was 2.3. Postoperative labs on 05/14/2019 revealed direct bilirubin at 0.8, AST 31, ALT 54, alkaline phosphatase 110, total protein 5.8, albumin 1.7, creatinine 1.0, calcium 8.2. IMPRESSION AND PLAN: 1. T3 N1 M0, stage 2B cholangiocarcinoma, status post Whipple surgery on 05/08/2019. I discussed the diagnosis, staging and adjuvant chemotherapy options with the patient and her granddaughter. I would recommend to continue current postoperative care and followup with me in about 2-3 weeks to discuss adjuvant chemotherapy options. I would recommend adjuvant chemotherapy with Gemzar based regimen. 2. Anemia postoperatively. Preop hemoglobin was normal. Hemoglobin is 8.4 on 05/14/2019. Continue to monitor. GILBERT LÓPEZ MD DR: AMAURI/valorie JOB#: [id number] / [id number]
[2019-05-16] MEDS: AMITRIPTYLINE HCL 25 MG TABLET. PO SCH (21:50)
[2019-05-16] MEDS ORDERED: [UNRECOGNIZED DRUG - OTHER] IV SCH ×11 (22:00)
[2019-05-16] MEDS ORDERED: DEXTROSE 70% IV SCH ×11 (22:00)
[2019-05-16] MEDS ORDERED: AMINO ACID IV SCH ×11 (22:00)
[2019-05-16] MEDS ORDERED: TOTAL PARENTERAL NUTRITION IV SCH ×11 (22:00)
[2019-05-16 23:00] VITALS: BP 125/65
[2019-05-17] MEDS: HYDROcodone/APAP 10/325 1 TAB TABLET PO PRN ×3 (01:08→18:10)
[2019-05-17] MEDS: HYDROmorphone 2 MG/ML VIAL IVP PRN ×5 (01:59→19:46)
[2019-05-17 03:00] VITALS: BP 113/55
[2019-05-17 05:56] LABS: BASO % 1 % (0-3); EOS # 0.2 x10^3/uL (0.0-0.7); EOS % 2 % (0-3); HEMOGLOBIN 8.4 g/dL (12.0-15.5); LYMPH # 1.6 x10^3/uL (1.0-4.8); LYMPH % 17 % (24-48); MEAN CORPUSCULAR HEMOGLOBIN 31 pg (25-35); MEAN CORPUSCULAR HGB CONC 34 g/dL (31-37); MEAN CORPUSCULAR VOLUME 92 fL (79-100); MONO # 0.9 x10^3/uL (0.0-1.1); MONO % 9 % (0-9); NEUT # 6.4 x10^3/uL (1.8-7.7); NEUT % 70 % (31-73); PLATELET COUNT 527 x10^3/uL (140-400); RED BLOOD COUNT 2.71 x10^6/uL (3.50-5.40); WHITE BLOOD COUNT 9.1 x10^3/uL (4.0-11.0)
[2019-05-17 06:02] LABS: CALCIUM 8.5 mg/dL (8.5-10.1); GFR 53.2
[2019-05-17] MEDS: PANTOPRAZOLE IV PUSH 40 MG VIAL. IVP SCH (06:05)
[2019-05-17 06:06] LABS: DIRECT BILIRUBIN 0.7 mg/dL (0.0-0.2); TOTAL BILIRUBIN 0.8 mg/dL (0.2-1.0); TOTAL PROTEIN 5.8 g/dL (6.4-8.2)
[2019-05-17 07:00] VITALS: BP 124/62
--- NOTE | 2019-05-17 08:30 | NUR ---
Gtube suction on hold.
[2019-05-17] MEDS: POLYETHYLENE GLYCOL 3350 17 GM PACKET. PO SCH (08:37)
[2019-05-17] MEDS: SERTRALINE 50 MG TABLET. PO SCH (08:37)
[2019-05-17] MEDS: GABAPENTIN 300 MG CAPSULE. PO SCH ×3 (08:37→19:48)
[2019-05-17] MEDS: traMADol 50 MG TABLET PO SCH ×4 (08:37→19:48)
[2019-05-17] MEDS: INSULIN LISPRO 300 UNITS/3 ML VIAL. SQ SCH ×3 (08:41→17:00)
[2019-05-17] MEDS: HEPARIN for SUB-Q USE 5,000 UNIT/ML VIAL. SQ SCH ×2 (08:42→19:59)
--- NOTE | 2019-05-17 09:27 | PDOC ---
PROGRESS NOTES Subjective Subjective HPI - f/u of T3 N1 M0, stage 2B cholangiocarcinoma, status post Whipple surgery on 05/08/2019. ROS - abd pain is better Objective Objective Vital Signs Date Time Temp Pulse Resp B/P (MAP) Pulse Ox O2 Delivery O2 Flow Rate FiO2 05/17/19 08:42 Room Air 05/17/19 07:25 2.0 05/17/19 07:00 98.0 82 18 124/62 (82) 96 98.0 Intake and Output 05/17/19 07:00 Intake Total 340 ml Output Total 750 ml Balance -410 ml Intake Oral 340 ml Output Urine Total 50 ml Gastric Drainage Total 700 ml # Voids 4 Physical Exam Heart: Normal S1, Normal S2 General: Alert, Oriented X3, No acute distress Lungs: Clear to auscultation Neuro: Normal speech Psych/Mental Status: Mental status NL Assessment Assessment Problems Medical Problems: (1) Acute hepatitis Status: Acute (2) Epigastric pain Status: Acute (3) Generalized pruritus Status: Acute (4) Obstructive jaundice Status: Acute IMPRESSION AND PLAN: 1. T3 N1 M0, stage IIB cholangiocarcinoma, status post Whipple surgery on 05/08/2019. I discussed the diagnosis, staging and adjuvant chemotherapy options with the patient and her granddaughter. I would recommend to continue current postoperative care and followup with me in about 2-3 weeks to discuss adjuvant chemotherapy options. I would recommend adjuvant chemotherapy with Gemzar based regimen. 2. Anemia postoperatively. Preop hemoglobin was normal. Hemoglobin is 8.4 on 05/14/2019. Continue to monitor. Hb stable at 8.4 on 05/17/19. Comment Review of Relevant I have reviewed the following items betty (where applicable) has been applied. Labs Laboratory Tests Test 05/15/19 11:52 05/15/19 17:07 05/15/19 20:53 05/16/19 05:20 Glucose (Fingerstick) 228 mg/dL (70-99) 229 mg/dL (70-99) 213 mg/dL (70-99) Sodium Level 137 mmol/L (136-145) Potassium Level 4.3 mmol/L (3.5-5.1) Chloride Level 102 mmol/L (98-107) Carbon Dioxide Level 27 mmol/L (21-32) Anion Gap 8 (6-14) Blood Urea Nitrogen 21 mg/dL (7-20) Creatinine 1.0 mg/dL (0.6-1.0) Estimated GFR (Cockcroft-Gault) 53.2 Glucose Level 299 mg/dL (70-99) Calcium Level 8.1 mg/dL (8.5-10.1) Test 05/16/19 08:40 05/16/19 11:58 05/16/19 15:27 05/16/19 20:44 Glucose (Fingerstick) 337 mg/dL (70-99) 218 mg/dL (70-99) 278 mg/dL (70-99) 331 mg/dL (70-99) Test 05/17/19 05:05 05/17/19 07:19 White Blood Count 9.1 x10^3/uL (4.0-11.0) Red Blood Count 2.71 x10^6/uL (3.50-5.40) Hemoglobin 8.4 g/dL (12.0-15.5) Hematocrit 25.0 % (36.0-47.0) Mean Corpuscular Volume 92 fL (79-100) Mean Corpuscular Hemoglobin 31 pg (25-35) Mean Corpuscular Hemoglobin Concent 34 g/dL (31-37) Red Cell Distribution Width 16.0 % (11.5-14.5) Platelet Count 527 x10^3/uL (140-400) Neutrophils (%) (Auto) 70 % (31-73) Lymphocytes (%) (Auto) 17 % (24-48) Monocytes (%) (Auto) 9 % (0-9) Eosinophils (%) (Auto) 2 % (0-3) Basophils (%) (Auto) 1 % (0-3) Neutrophils # (Auto) 6.4 x10^3/uL (1.8-7.7) Lymphocytes # (Auto) 1.6 x10^3/uL (1.0-4.8) Monocytes # (Auto) 0.9 x10^3/uL (0.0-1.1) Eosinophils # (Auto) 0.2 x10^3/uL (0.0-0.7) Basophils # (Auto) 0.0 x10^3/uL (0.0-0.2) Sodium Level 140 mmol/L (136-145) Potassium Level 4.0 mmol/L (3.5-5.1) Chloride Level 103 mmol/L (98-107) Carbon Dioxide Level 30 mmol/L (21-32) Anion Gap 7 (6-14) Blood Urea Nitrogen 17 mg/dL (7-20) Creatinine 1.0 mg/dL (0.6-1.0) Estimated GFR (Cockcroft-Gault) 53.2 Glucose Level 186 mg/dL (70-99) Calcium Level 8.5 mg/dL (8.5-10.1) Total Bilirubin 0.8 mg/dL (0.2-1.0) Direct Bilirubin 0.7 mg/dL (0.0-0.2) Aspartate Amino Transf (AST/SGOT) 28 U/L (15-37) Alanine Aminotransferase (ALT/SGPT) 44 U/L (14-59) Alkaline Phosphatase 129 U/L (46-116) Total Protein 5.8 g/dL (6.4-8.2) Albumin 2.0 g/dL (3.4-5.0) Glucose (Fingerstick) 164 mg/dL (70-99) Laboratory Tests Test 05/16/19 11:58 05/16/19 15:27 05/16/19 20:44 05/17/19 05:05 Glucose (Fingerstick) 218 mg/dL (70-99) 278 mg/dL (70-99) 331 mg/dL (70-99) White Blood Count 9.1 x10^3/uL (4.0-11.0) Red Blood Count 2.71 x10^6/uL (3.50-5.40) Hemoglobin 8.4 g/dL (12.0-15.5) Hematocrit 25.0 % (36.0-47.0) Mean Corpuscular Volume 92 fL (79-100) Mean Corpuscular Hemoglobin 31 pg (25-35) Mean Corpuscular Hemoglobin Concent 34 g/dL (31-37) Red Cell Distribution Width 16.0 % (11.5-14.5) Platelet Count 527 x10^3/uL (140-400) Neutrophils (%) (Auto) 70 % (31-73) Lymphocytes (%) (Auto) 17 % (24-48) Monocytes (%) (Auto) 9 % (0-9) Eosinophils (%) (Auto) 2 % (0-3) Basophils (%) (Auto) 1 % (0-3) Neutrophils # (Auto) 6.4 x10^3/uL (1.8-7.7) Lymphocytes # (Auto) 1.6 x10^3/uL (1.0-4.8) Monocytes # (Auto) 0.9 x10^3/uL (0.0-1.1) Eosinophils # (Auto) 0.2 x10^3/uL (0.0-0.7) Basophils # (Auto) 0.0 x10^3/uL (0.0-0.2) Sodium Level 140 mmol/L (136-145) Potassium Level 4.0 mmol/L (3.5-5.1) Chloride Level 103 mmol/L (98-107) Carbon Dioxide Level 30 mmol/L (21-32) Anion Gap 7 (6-14) Blood Urea Nitrogen 17 mg/dL (7-20) Creatinine 1.0 mg/dL (0.6-1.0) Estimated GFR (Cockcroft-Gault) 53.2 Glucose Level 186 mg/dL (70-99) Calcium Level 8.5 mg/dL (8.5-10.1) Total Bilirubin 0.8 mg/dL (0.2-1.0) Direct Bilirubin 0.7 mg/dL (0.0-0.2) Aspartate Amino Transf (AST/SGOT) 28 U/L (15-37) Alanine Aminotransferase (ALT/SGPT) 44 U/L (14-59) Alkaline Phosphatase 129 U/L (46-116) Total Protein 5.8 g/dL (6.4-8.2) Albumin 2.0 g/dL (3.4-5.0) Test 05/17/19 07:19 Glucose (Fingerstick) 164 mg/dL (70-99) Microbiology 04/26/19 Urine Culture - Final, Complete 04/26/19 Urine Culture Result 1 (QUEENIE) - Final, Complete Medications Current Medications Iohexol (Omnipaque 300 Mg/ml) 60 ml 1X ONCE IV Last administered on 04/26/19at 12:06; Start 04/26/19 at 12:30; Stop 04/26/19 at 12:31; Status DC Info (CONTRAST GIVEN -- Rx MONITORING) 1 each PRN DAILY PRN MC SEE COMMENTS; Start 04/26/19 at 12:00; Stop 04/28/19 at 11:59; Status DC Ondansetron HCl (Zofran) 4 mg PRN Q6HRS PRN IV NAUSEA/VOMITING Last administered on 04/29/19 01:04; Start 04/26/19 at 12:30; Stop 04/29/19 at 04:56; Status DC Cholestyramine Resin (Questran Light) 4 gm BID@1000,2200 PO Last administered on 05/16/19 21:57; Start 04/26/19 at 22:00 Hydroxyzine HCl (Atarax) 25 mg PRN Q6HRS PRN PO ITCHING Last administered on 05/06/19 21:03; Start 04/26/19 at 12:30 Morphine Sulfate (Morphine Sulfate) 2 mg PRN Q6HRS PRN IV SEVERE PAIN 7-10; Start 04/26/19 at 12:30; Stop 04/26/19 at 12:42; Status DC Acetaminophen/ Hydrocodone Bitart (Lortab 5/325) 1 tab PRN Q6HRS PRN PO MILD PAIN / TEMP; Start 04/26/19 at 12:30; Stop 04/26/19 at 12:42; Status DC Gabapentin (Neurontin) 300 mg TID PO Last administered on 05/17/19 08:42; Start 04/26/19 at 14:00 Lorazepam (Ativan) 0.5 mg PRN BID PRN PO AGITATION Last administered on 05/16/19 15:50; Start 04/26/19 at 12:30 Sertraline HCl (Zoloft) 50 mg DAILY PO Last administered on 05/17/19 08:42; Start 04/27/19 at 09:00 Tramadol HCl (Ultram) 50 mg TID PO Last administered on 04/29/19 09:09; Start 04/26/19 at 14:00; Stop 04/29/19 at 10:09; Status DC Acetaminophen (Tylenol) 325 mg PRN Q6HRS PRN PO MILD PAIN / TEMP; Start 04/26/19 at 12:30 Polyethylene Glycol (miraLAX PACKET) 17 gm DAILY PO Last administered on 05/17/19 08:42; Start 04/27/19 at 09:00 Magnesium Hydroxide (Milk Of Magnesia) 2,400 mg PRN DAILY PRN PO CONSTIPATION Last administered on 04/29/19at 02:34; Start 04/26/19 at 12:30 Acetaminophen/ Hydrocodone Bitart (Lortab 5/325) 1 tab PRN Q4HRS PRN PO MODERATE PAIN Last administered on 05/16/19at 14:39; Start 04/26/19 at 12:45; Stop 05/16/19 at 16:22; Status DC Morphine Sulfate (Morphine Sulfate) 1 mg PRN Q4HRS PRN IV SEVERE PAIN 7-10 Last administered on 04/29/19at 01:11; Start 04/26/19 at 12:45; Stop 04/29/19 at 04:56; Status DC Levofloxacin/ Dextrose 100 ml @ 100 mls/hr 1X ONCE IV Last administered on 04/28/19at 08:31; Start 04/28/19 at 07:15; Stop 04/28/19 at 08:14; Status DC Ringer's Solution 1,000 ml @ 75 mls/hr 1X ONCE IV Last administered on at 14:43; Start 04/28/19 at 12:15; Stop 04/29/19 at 01:34; Status DC Iohexol (Omnipaque 300 Mg/ml) 100 ml STK-MED ONCE .ROUTE ; Start 04/28/19 at 13:24; Stop 04/28/19 at 13:25; Status DC Famotidine (Pepcid Vial) 20 mg STK-MED ONCE .ROUTE ; Start 04/28/19 at 14:12; Stop 04/28/19 at 14:13; Status DC Dexamethasone Sodium Phosphate (Decadron) 20 mg STK-MED ONCE .ROUTE ; Start 04/28/19 at 14:13; Stop 04/28/19 at 14:14; Status DC Lidocaine HCl (Lidocaine Pf 2% Vial) 5 ml STK-MED ONCE .ROUTE ; Start 04/28/19 at 15:00; Stop 04/28/19 at 15:01; Status DC Iohexol (Omnipaque 300 Mg/ml) 100 ml STK-MED ONCE IV Last administered on 04/28/19at 16:20; Start 04/28/19 at 16:20; Stop 04/28/19 at 16:48; Status DC Fentanyl Citrate (Fentanyl 2ml Vial) 25 mcg 1X ONCE IV Last administered on 04/28/19at 17:05; Start 04/28/19 at 17:00; Stop 04/28/19 at 17:01; Status DC Morphine Sulfate (Morphine Sulfate) 2 mg PRN Q4HRS PRN IV SEVERE PAIN 7-10; Start 04/29/19 at 05:00; Stop 05/08/19 at 08:25; Status DC Ondansetron HCl (Zofran) 8 mg PRN Q6HRS PRN IV NAUSEA/VOMITING, 1ST CHOICE Last administered on 05/03/19at 22:23; Start 04/29/19 at 05:00; Stop 05/12/19 at 14:03; Status DC Prochlorperazine Maleate (Compazine) 10 mg PRN Q6HRS PRN PO NAUSEA/VOMITING; Start 04/29/19 at 05:00 Tramadol HCl (Ultram) 50 mg QID PO Last administered on 05/17/19at 08:42; Start 04/29/19 at 13:00 Potassium Chloride/Dextrose/ Sod Cl 1,000 ml @ 75 mls/hr [id number] IV Last administered on 04/30/19at 02:53; Start 04/29/19 at 10:15; Stop 04/30/19 at 10:45; Status DC Amitriptyline HCl (Elavil) 25 mg QHS PO Last administered on 05/16/19at 21:57; Start 04/29/19 at 21:00 Phenylephrine HCl (PHENYLEPHRINE in 0.9% NACL PF) 1 mg STK-MED ONCE IV ; Start 04/28/19 at 14:00; Stop 04/29/19 at 13:10; Status DC Succinylcholine Chloride (Anectine) 200 mg STK-MED ONCE .ROUTE ; Start 04/28/19 at 14:00; Stop 04/29/19 at 13:10; Status DC Propofol (Diprivan) 200 mg STK-MED ONCE IV ; Start 04/28/19 at 14:00; Stop 04/29/19 at 13:10; Status DC Amino Acids/ Glycerin/ Electrolytes 1,000 ml @ 80 mls/hr [id number] IV Last administered on 05/09/19at 08:22; Start 04/30/19 at 10:45; Stop 05/09/19 at 21:59; Status DC Amlodipine Besylate (Norvasc) 5 mg DAILY PO Last administered on 05/05/19at 08:41; Start 05/01/19 at 13:00; Stop 05/05/19 at 10:06; Status DC Hydralazine HCl (Apresoline Inj) 10 mg PRN Q4HRS PRN IVP ELEVATED BP, SEE COMMENTS; Start 05/01/19 at 12:45 Amlodipine Besylate (Norvasc) 2.5 mg DAILY PO Last administered on 05/06/19at 09:28; Start 05/05/19 at 10:30; Stop 05/06/19 at 10:03; Status DC Cefoxitin Sodium (Mefoxin) 2 gm 1X PREOP IVP ; Start 05/08/19 at 08:00; Stop 05/08/19 at 10:15; Status DC Ondansetron HCl (Zofran) 4 mg PRN Q6HRS PRN IV NAUSEA/VOMITING; Start 05/08/19 at 07:00; Stop 05/08/19 at 20:00; Status DC Fentanyl Citrate (Fentanyl 2ml Vial) 25 mcg PRN Q5MIN PRN IV MILD PAIN 1-3 Last administered on 05/08/19at 15:37; Start 05/08/19 at 07:00; Stop 05/08/19 at 20:00; Status DC Fentanyl Citrate (Fentanyl 2ml Vial) 50 mcg PRN Q5MIN PRN IV MODERATE TO SEVERE PAIN; Start 05/08/19 at 07:00; Stop 05/08/19 at 20:00; Status DC Morphine Sulfate (Morphine Sulfate) 1 mg PRN Q10MIN PRN IV SEVERE PAIN 7-10; Start 05/08/19 at 07:00; Stop 05/08/19 at 20:00; Status DC Ringer's Solution 1,000 ml @ 30 mls/hr Q24H IV Last administered on 05/08/19at 07:28; Start 05/08/19 at 07:00; Stop 05/08/19 at 18:59; Status DC Hydromorphone HCl (Dilaudid) 0.5 mg PRN Q10MIN PRN IV SEV PAIN, Second choice; Start 05/08/19 at 07:00; Stop 05/08/19 at 20:00; Status DC Prochlorperazine Edisylate (Compazine) 5 mg PACU PRN PRN IV NAUSEA, MRX1 Last administered on 05/08/19at 15:37; Start 05/08/19 at 07:00; Stop 05/08/19 at 20:00; Status DC Fentanyl Citrate (Fentanyl 2ml Vial) 100 mcg STK-MED ONCE .ROUTE ; Start 05/08/19 at 07:06; Stop 05/08/19 at 07:07; Status DC Glycopyrrolate (Robinul) 1 mg STK-MED ONCE .ROUTE ; Start 05/08/19 at 07:07; Stop 05/08/19 at 07:07; Status DC Rocuronium Zahl (Zemuron) 100 mg STK-MED ONCE .ROUTE ; Start 05/08/19 at 07:08; Stop 05/08/19 at 07:08; Status DC Neostigmine Methylsulfate (Neostigmine Methylsulfate) 5 mg STK-MED ONCE .ROUTE ; Start 05/08/19 at 07:08; Stop 05/08/19 at 07:08; Status DC Propofol 20 ml @ As Directed STK-MED ONCE IV ; Start 05/08/19 at 07:09; Stop 05/08/19 at 07:09; Status DC Lidocaine HCl (Lidocaine Pf 2% Vial) 5 ml STK-MED ONCE .ROUTE ; Start 05/08/19 at 07:09; Stop 05/08/19 at 07:09; Status DC Ondansetron HCl (Zofran) 4 mg STK-MED ONCE .ROUTE ; Start 05/08/19 at 07:09; Stop 05/08/19 at 07:09; Status DC Dexamethasone Sodium Phosphate (Decadron) 4 mg STK-MED ONCE .ROUTE ; Start 05/08/19 at 07:09; Stop 05/08/19 at 07:09; Status DC Phenylephrine HCl (Ricco-Synephrine Inj) 10 mg STK-MED ONCE .ROUTE ; Start 05/08/19 at 07:12; Stop 05/08/19 at 07:12; Status DC Sodium Chloride 39.95 ml/ Hydromorphone HCl 0.5 mg/ Ropivacaine 10 ml/ Epidural Dosage Infused (Pha) 50 ml @ 8 mls/hr CONT PRN EPID PER PROTOCOL Last administered on 05/13/19at 03:29; Start 05/08/19 at 09:00; Stop 05/16/19 at 08:33; Status DC Fentanyl Citrate (Fentanyl 2ml Vial) 100 mcg STK-MED ONCE .ROUTE ; Start 05/08/19 at 08:25; Stop 05/08/19 at 08:25; Status DC Ephedrine Sulfate (ePHEDrine PF IN SALINE SYRINGE) 50 mg STK-MED ONCE IV ; Start 05/08/19 at 08:37; Stop 05/08/19 at 08:37; Status DC Cefoxitin Sodium (Mefoxin) 2 gm 1X PREOP IVP ; Start 05/08/19 at 10:15; Stop 05/12/19 at 12:54; Status DC Cefoxitin Sodium (Mefoxin) 2 gm 1X ONCE IVP Last administered on 05/08/19at 12:31; Start 05/08/19 at 12:30; Stop 05/08/19 at 12:31; Status DC Cefoxitin Sodium (Mefoxin) 1 gm STK-MED ONCE IVP ; Start 05/08/19 at 13:51; Stop 05/08/19 at 13:52; Status DC Famotidine (Pepcid Vial) 20 mg DAILY IVP Last administered on 05/09/19at 08:22; Start 05/08/19 at 21:00; Stop 05/09/19 at 16:20; Status DC Heparin Sodium (Porcine) (Heparin Sodium) 5,000 unit Q12HR SQ Last administered on 05/17/19at 08:42; Start 05/08/19 at 14:30 Sodium Chloride (Normal Saline Flush) 3 ml QSHIFT PRN IV AFTER MEDS AND BLOOD DRAWS; Start 05/08/19 at 14:30 Ringer's Solution 1,000 ml @ 100 mls/hr Q10H IV Last administered on 05/09/19at 18:58; Start 05/08/19 at 14:18; Stop 05/09/19 at 19:29; Status DC Naloxone HCl (Narcan) 0.4 mg PRN Q2MIN PRN IV SEE INSTRUCTIONS; Start 05/08/19 at 14:30 Sodium Chloride 1,000 ml @ 25 mls/hr Q24H IV Last administered on 05/15/19at 13:29; Start 05/08/19 at 14:18; Stop 05/16/19 at 08:33; Status DC Ondansetron HCl (Zofran) 4 mg PRN Q6HRS PRN IV NAUESA, 1ST CHOICE Last administered on 05/16/19at 15:50; Start 05/08/19 at 14:30 Fentanyl Citrate (Fentanyl 2ml Vial) 100 mcg STK-MED ONCE .ROUTE ; Start 05/08/19 at 14:29; Stop 05/08/19 at 14:29; Status DC Sevoflurane (Ultane) 90 ml STK-MED ONCE IH ; Start 05/08/19 at 14:44; Stop 05/08/19 at 14:44; Status DC Norepinephrine Bitartrate 250 ml @ 13.438 mls/ hr CONT PRN IV SEE I/O RECORD Last administered on 05/09/19at 23:49; Start 05/08/19 at 18:45; Stop 05/12/19 at 14:03; Status DC Ringer's Solution 500 ml @ 500 mls/hr 1X ONCE IV Last administered on 05/08/19at 19:22; Start 05/08/19 at 18:45; Stop 05/08/19 at 19:44; Status DC Ringer's Solution 500 ml @ 500 mls/hr 1X ONCE IV Last administered on 05/09/19at 03:39; Start 05/09/19 at 03:30; Stop 05/09/19 at 04:29; Status DC Ringer's Solution 500 ml @ 500 mls/hr 1X ONCE IV Last administered on 05/09/19at 10:14; Start 05/09/19 at 08:15; Stop 05/09/19 at 09:14; Status DC Info (Tpn Per Pharmacy) 1 each PRN DAILY PRN MC SEE COMMENTS Last administered on 05/15/19at 13:04; Start 05/09/19 at 13:00; Stop 05/16/19 at 08:33; Status DC Sodium Acetate 90 meq/Potassium Chloride 50 meq/ Potassium Phosphate 13.6 mmol/Magnesium Sulfate 8 meq/ Calcium Gluconate 10 meq/ Multivitamins 10 ml/Chromium/ Copper/Manganese/ Seleni/Zn 1 ml/ Total Parenteral Nutrition/Amino Acids/Dextrose/ Fat Emulsion Intravenous 1,512 ml @ 63 mls/hr TPN CONT IV Last administered on 05/09/19at 21:00; Start 05/09/19 at 22:00; Stop 05/10/19 at 21:59; Status DC Info (Tpn Per Pharmacy) 1 each PRN DAILY PRN MC SEE COMMENTS; Start 05/09/19 at 14:30; Status UNV Pantoprazole Sodium (PROTONIX VIAL for IV PUSH) 40 mg [id number] IVP Last administered on 05/17/19at 06:06; Start 05/09/19 at 18:00 Albumin Human 500 ml @ 125 mls/hr 1X ONCE IV Last administered on 05/09/19at 17:33; Start 05/09/19 at 17:30; Stop 05/09/19 at 21:29; Status DC Diphenhydramine HCl (Benadryl) 12.5 mg PRN Q6HRS PRN IVP ITCHING Last administered on 05/14/19at 14:14; Start 05/09/19 at 18:30 Acetaminophen (Tylenol Supp) 650 mg PRN Q8HRS PRN TN MILD PAIN / TEMP; Start 05/09/19 at 18:30 Potassium Phosphate 13.6 mmol/Dextrose 104.5333 ml @ 52.267 m... Q2H IV Last administered on 05/10/19at 11:28; Start 05/10/19 at 09:00; Stop 05/10/19 at 12:59; Status DC Sodium Acetate 90 meq/Potassium Chloride 50 meq/ Potassium Phosphate 18 mmol/ Magnesium Sulfate 10 meq/Calcium Gluconate 10 meq/ Multivitamins 10 ml/Chromium/ Copper/Manganese/ Seleni/Zn 1 ml/ Total Parenteral Nutrition/Amino Acids/Dextrose/ Fat Emulsion Intravenous 1,512 ml @ 63 mls/hr TPN CONT IV Last administered on 05/10/19at 21:32; Start 05/10/19 at 22:00; Stop 05/11/19 at 21:59; Status DC Potassium Phosphate 13.6 mmol/Dextrose 104.5333 ml @ 52.267 m... Q2H IV Last administered on 05/11/19at 11:37; Start 05/11/19 at 11:30; Stop 05/11/19 at 13:29; Status DC Sodium Acetate 90 meq/Potassium Chloride 50 meq/ Potassium Phosphate 24 mmol/ Magnesium Sulfate 15 meq/Calcium Gluconate 10 meq/ Multivitamins 10 ml/Chromium/ Copper/Manganese/ Seleni/Zn 1 ml/ Total Parenteral Nutrition/Amino Acids/Dextrose/ Fat Emulsion Intravenous 1,512 ml @ 63 mls/hr TPN CONT IV Last administered on 05/11/19at 22:40; Start 05/11/19 at 22:00; Stop 05/12/19 at 21:59; Status DC Insulin Human Lispro (HumaLOG) 0-5 UNITS TIDWMEALS SQ Last administered on 05/17/19at 08:42; Start 05/11/19 at 12:00 Dextrose (Dextrose 50%-Water Syringe) 12.5 gm PRN Q15MIN PRN IV SEE COMMENTS; Start 05/11/19 at 11:30; Stop 05/16/19 at 08:33; Status DC Dextrose 250 ml PRN Q15MIN PRN IV SEE COMMENTS; Start 05/11/19 at 11:30 Sodium Acetate 90 meq/Potassium Chloride 50 meq/ Potassium Phosphate 24 mmol/ Magnesium Sulfate 18 meq/Calcium Gluconate 10 meq/ Multivitamins 10 ml/Chromium/ Copper/Manganese/ Seleni/Zn 1 ml/ Insulin Human Regular 7 unit/ Total Parenteral Nutrition/Amino Acids/Dextrose/ Fat Emulsion Intravenous 1,512 ml @ 63 mls/hr TPN CONT IV Last administered on 05/12/19at 22:28; Start 05/12/19 at 22:00; Stop 05/13/19 at 21:59; Status DC Naloxone HCl (Narcan) 0.4 mg PRN Q2MIN PRN IV SEE INSTRUCTIONS; Start 05/13/19 at 09:15; Status UNV Sodium Chloride 1,000 ml @ 25 mls/hr Q24H IV ; Start 05/13/19 at 09:06; Status UNV Hydromorphone HCl 30 ml @ 0 mls/hr CONT PRN PRN IV PER PROTOCOL Last administered on 05/15/19at 16:42; Start 05/13/19 at 09:30; Stop 05/16/19 at 08:33; Status DC Sodium Acetate 90 meq/Potassium Chloride 30 meq/ Potassium Phosphate 24 mmol/ Magnesium Sulfate 18 meq/Calcium Gluconate 10 meq/ Multivitamins 10 ml/Chromium/ Copper/Manganese/ Seleni/Zn 1 ml/ Insulin Human Regular 7 unit/ Total Parenteral Nutrition/Amino Acids/Dextrose/ Fat Emulsion Intravenous 1,512 ml @ 63 mls/hr TPN CONT IV Last administered on 05/13/19at 22:07; Start 05/13/19 at 22:00; Stop 05/14/19 at 21:59; Status DC Hydromorphone HCl (Dilaudid Standard DIGITAL STRATEGY MANAGER) 12 mg STK-MED ONCE IV ; Start 05/13/19 at 09:47; Stop 05/14/19 at 08:59; Status DC Sodium Acetate 90 meq/Potassium Chloride 30 meq/ Potassium Phosphate 24 mmol/ Magnesium Sulfate 18 meq/Calcium Gluconate 10 meq/ Multivitamins 10 ml/Chromium/ Copper/Manganese/ Seleni/Zn 1 ml/ Insulin Human Regular 7 unit/ Total Parenteral Nutrition/Amino Acids/Dextrose/ Fat Emulsion Intravenous 1,512 ml @ 63 mls/hr TPN CONT IV Last administered on 05/14/19at 22:18; Start 05/14/19 at 22:00; Stop 05/15/19 at 21:59; Status DC Hydromorphone HCl (Dilaudid Standard DIGITAL STRATEGY MANAGER) 12 mg STK-MED ONCE IV ; Start 05/14/19 at 13:41; Stop 05/15/19 at 10:40; Status DC Sodium Acetate 90 meq/Potassium Chloride 30 meq/ Potassium Phosphate 24 mmol/ Magnesium Sulfate 18 meq/Calcium Gluconate 10 meq/ Multivitamins 10 ml/Chromium/ Copper/Manganese/ Seleni/Zn 1 ml/ Insulin Human Regular 7 unit/ Total Parenteral Nutrition/Amino Acids/Dextrose/ Fat Emulsion Intravenous 1,512 ml @ 63 mls/hr TPN CONT IV Last administered on 05/15/19at 22:07; Start 05/15/19 at 22:00; Stop 05/16/19 at 21:59; Status DC Hydromorphone HCl (Dilaudid Standard DIGITAL STRATEGY MANAGER) 12 mg STK-MED ONCE IV ; Start 05/15/19 at 16:18; Stop 05/16/19 at 11:57; Status DC Sodium Acetate 90 meq/Potassium Chloride 30 meq/ Potassium Phosphate 24 mmol/ Magnesium Sulfate 18 meq/Calcium Gluconate 10 meq/ Multivitamins 10 ml/Chromium/ Copper/Manganese/ Seleni/Zn 1 ml/ Insulin Human Regular 12 unit/ Total Parenteral Nutrition/Amino Acids/Dextrose/ Fat Emulsion Intravenous 1,512 ml @ 63 mls/hr TPN CONT IV ; Start 05/16/19 at 22:00; Stop 05/16/19 at 14:11; Status DC Acetaminophen/ Hydrocodone Bitart (Lortab 10/325) 1 tab PRN Q4HRS PRN PO MODERATE PAIN, SEVERE PAIN Last administered on 05/17/19at 05:11; Start 05/16/19 at 16:30 Hydromorphone HCl (Dilaudid) 1 mg PRN Q4HRS PRN IV SEVERE PAIN 7-10; Start 05/16/19 at 16:30; Stop 05/16/19 at 16:23; Status DC Hydromorphone HCl (Dilaudid) 0.1 mg PRN Q4HRS PRN IVP PAIN Last administered on 05/17/19at 06:06; Start 05/16/19 at 16:30 Active Scripts Active Zoloft (Sertraline Hcl) 50 Mg Tablet 50 Mg PO DAILY [Polyethylene Glycol 3350] 17 GM Packet 17 Gm PO DAILY [Oxycodone Hcl/Acetaminophen] 1 TAB Tablet 1 Tab PO PRN Q4HRS PRN Neurontin (Gabapentin) 300 Mg Capsule 300 Mg PO TID [Amoxicillin/Potassium Clav] 1 TAB Tablet 1 Tab PO BID [Amitriptyline Hcl] 50 MG Tablet 50 Mg PO QHS Lipitor (Atorvastatin Calcium) 10 Mg Tablet 10 Mg PO QHS Vitals/I & O Vital Sign - Last 24 Hours 05/16/19 05/16/19 05/16/19 05/16/19 10:28 10:48 11:00 12:04 Temp 98.9 98.9 Pulse 84 Resp 18 B/P (MAP) 116/66 (83) Pulse Ox 99 O2 Delivery Room Air Room Air Room Air Room Air 05/16/19 05/16/19 05/16/19 05/16/19 13:36 14:39 14:40 15:00 Temp 97.9 97.9 Pulse 82 Resp 18 B/P (MAP) 128/72 (90) Pulse Ox 99 O2 Delivery Room Air Room Air Room Air Room Air 05/16/19 05/16/19 05/16/19 05/16/19 15:50 16:32 17:12 17:12 Pulse Ox 98 O2 Delivery Room Air Room Air Nasal Cannula Nasal Cannula O2 Flow Rate 2.0 2.0 8/2305/16/19 05/16/19 05/16/19 18:15 19:00 20:00 20:42 Temp 98.9 98.9 Pulse 91 Resp 18 20 B/P (MAP) 132/69 (90) Pulse Ox 95 O2 Delivery Room Air Room Air Nasal Cannula Room Air O2 Flow Rate 2.0 05/16/19 05/16/19 05/16/19 05/16/19 21:57 22:48 22:48 23:00 Temp 98.9 98.9 Pulse 85 Resp 20 20 20 18 B/P (MAP) 125/65 (85) Pulse Ox 96 O2 Delivery Nasal Cannula Nasal Cannula Nasal Cannula Room Air O2 Flow Rate 2.0 2.0 2.0 05/16/19 05/17/19 05/17/19 05/17/19 23:40 01:08 02:01 02:13 Resp 20 20 20 20 O2 Delivery Nasal Cannula Nasal Cannula Nasal Cannula Nasal Cannula O2 Flow Rate 2.0 2.0 2.0 05/17/19 05/17/19 05/17/19 05/17/19 02:31 03:00 05:11 06:06 Temp 98.3 98.3 Pulse 90 Resp 20 18 20 20 B/P (MAP) 113/55 (74) Pulse Ox 97 O2 Delivery Nasal Cannula Room Air Nasal Cannula Nasal Cannula O2 Flow Rate 2.0 2.0 2.0 05/17/19 05/17/19 05/17/19 05/17/19 06:34 06:41 07:00 07:25 Temp 98.0 98.0 Pulse 82 Resp 20 20 18 B/P (MAP) 124/62 (82) Pulse Ox 96 O2 Delivery Nasal Cannula Nasal Cannula Room Air Nasal Cannula O2 Flow Rate 2.0 2.0 2.0 05/17/19 08:42 O2 Delivery Room Air Intake and Output 05/16/19 05/16/19 05/17/19 15:00 23:00 07:00 Intake Total 100 ml 240 ml Output Total 250 ml 500 ml Balance -250 ml -400 ml 240 ml GILBERT LÓPEZ MD May 17, 2019 09:26
--- NOTE | 2019-05-17 09:30 | NUR ---
Gtube suction resumed.
[2019-05-17] MEDS: CHOLESTYRAMINE/ASPARTAME 4 GM PACKET PO SCH ×2 (10:15→19:59)
[2019-05-17 11:00] VITALS: BP 115/60
--- NOTE | 2019-05-17 11:15 | NUR ---
Dr. guillen in to see pt, notified of pt's c/o "fibromyalgia" pain.
--- NOTE | 2019-05-17 11:45 | PDOC ---
IM PROGRESS NOTES- Subjective Subjective No dyspnea but has some joint pains. Objective Vitals/I&O Vital Signs Date Time Temp Pulse Resp B/P (MAP) Pulse Ox O2 Delivery O2 Flow Rate FiO2 05/17/19 11:09 Room Air 05/17/19 11:00 98.1 79 18 115/60 (78) 96 98.1 05/17/19 07:25 2.0 l I & O 05/16/19 05/16/19 05/17/19 15:00 23:00 07:00 Intake Total 100 ml 240 ml Output Total 250 ml 500 ml Balance -250 ml -400 ml 240 ml Physical Exam Physical Exam General appearance - alert,weak, and in no distress and oriented to person, place, and time Mental Status - alert, oriented to person, place, and time, affect appropriate to mood Head - normal Chest - clear to auscultation, no wheezes, rales or rhonchi, symmetric air entry Heart - S1 and S2 normal Abdomen - soft Neurological - alert and oriented Musculoskeletal - no muscular tenderness noted Extremities - no pedal edema Skin - warm and dry Labs Laboratory Tests Test 05/16/19 11:58 05/16/19 15:27 05/16/19 20:44 05/17/19 05:05 Glucose (Fingerstick) 218 mg/dL (70-99) H 278 mg/dL (70-99) H 331 mg/dL (70-99) H White Blood Count 9.1 x10^3/uL (4.0-11.0) Red Blood Count 2.71 x10^6/uL (3.50-5.40) L Hemoglobin 8.4 g/dL (12.0-15.5) L Hematocrit 25.0 % (36.0-47.0) L Mean Corpuscular Volume 92 fL (79-100) Mean Corpuscular Hemoglobin 31 pg (25-35) Mean Corpuscular Hemoglobin Concent 34 g/dL (31-37) Red Cell Distribution Width 16.0 % (11.5-14.5) H Platelet Count 527 x10^3/uL (140-400) H Neutrophils (%) (Auto) 70 % (31-73) Lymphocytes (%) (Auto) 17 % (24-48) L Monocytes (%) (Auto) 9 % (0-9) Eosinophils (%) (Auto) 2 % (0-3) Basophils (%) (Auto) 1 % (0-3) Neutrophils # (Auto) 6.4 x10^3/uL (1.8-7.7) Lymphocytes # (Auto) 1.6 x10^3/uL (1.0-4.8) Monocytes # (Auto) 0.9 x10^3/uL (0.0-1.1) Eosinophils # (Auto) 0.2 x10^3/uL (0.0-0.7) Basophils # (Auto) 0.0 x10^3/uL (0.0-0.2) Sodium Level 140 mmol/L (136-145) Potassium Level 4.0 mmol/L (3.5-5.1) Chloride Level 103 mmol/L (98-107) Carbon Dioxide Level 30 mmol/L (21-32) Anion Gap 7 (6-14) Blood Urea Nitrogen 17 mg/dL (7-20) Creatinine 1.0 mg/dL (0.6-1.0) Estimated GFR (Cockcroft-Gault) 53.2 Glucose Level 186 mg/dL (70-99) H Calcium Level 8.5 mg/dL (8.5-10.1) Total Bilirubin 0.8 mg/dL (0.2-1.0) Direct Bilirubin 0.7 mg/dL (0.0-0.2) H Aspartate Amino Transferase (AST) 28 U/L (15-37) Alanine Aminotransferase (ALT) 44 U/L (14-59) Alkaline Phosphatase 129 U/L (46-116) H Total Protein 5.8 g/dL (6.4-8.2) L Albumin 2.0 g/dL (3.4-5.0) L Test 05/17/19 07:19 Glucose (Fingerstick) 164 mg/dL (70-99) H Laboratory Tests 05/17/19 05:05 Laboratory Tests 05/17/19 05:05 Meds Current Medications Medications (Trade) Dose Ordered Sig/Meka Route PRN Reason Start Time Stop Time Status Last Admin Dose Admin Acetaminophen/ Hydrocodone Bitart (Lortab 10/325) 1 tab PRN Q4HRS PRN PO MODERATE PAIN, SEVERE PAIN 05/16/19 16:30 05/17/19 05:11 Hydromorphone HCl (Dilaudid) 0.1 mg PRN Q4HRS PRN IVP PAIN 05/16/19 16:30 05/17/19 10:19 Assessment Assessment Problems Medical Problems: (1) Acute hepatitis Status: Acute (2) Epigastric pain Status: Acute (3) Generalized pruritus Status: Acute (4) Obstructive jaundice Status: Acute Problems: Obstructive jaundice due to Pancreatic cancer. PLAN: DM glucose 363- TPN stopped.Blood sugar is now improving.Monitor. PT/OT/rehab TPN stopped.Eating better. advancing diet. Select/SNU screen for sunday Procedure Performed:05/08/19 whipple procedure (specifically: pyloric sparing, pancreaticogastrostomy), G- tube placement Plan Plan For more details regarding further plans, please refer to the orders. NEETA LYMAN MD May 17, 2019 11:45
--- NOTE | 2019-05-17 14:01 | PDOC ---
PROGRESS NOTES Subjective Subjective complains of "fibromyalgia pain", thinks belly is ok Objective Objective Vital Signs Date Time Temp Pulse Resp B/P (MAP) Pulse Ox O2 Delivery O2 Flow Rate FiO2 05/17/19 13:22 Room Air 05/17/19 11:00 98.1 79 18 115/60 (78) 96 98.1 05/17/19 07:25 2.0 Intake and Output 05/17/19 06:59 Intake Total 340 ml Output Total 750 ml Balance -410 ml Intake Oral 340 ml Output Urine Total 50 ml Gastric Drainage Total 700 ml # Voids 4 Physical Exam Abdomen: Soft (MIRIAM drains serosang) Assessment Assessment Problems Medical Problems: (1) Acute hepatitis Status: Acute (2) Epigastric pain Status: Acute (3) Generalized pruritus Status: Acute (4) Obstructive jaundice Status: Acute Plan Plan of Care No new surgical recs Comment Review of Relevant I have reviewed the following items betty (where applicable) has been applied. Labs Laboratory Tests Test 05/15/19 17:07 05/15/19 20:53 05/16/19 05:20 05/16/19 08:40 Glucose (Fingerstick) 229 mg/dL (70-99) 213 mg/dL (70-99) 337 mg/dL (70-99) Sodium Level 137 mmol/L (136-145) Potassium Level 4.3 mmol/L (3.5-5.1) Chloride Level 102 mmol/L (98-107) Carbon Dioxide Level 27 mmol/L (21-32) Anion Gap 8 (6-14) Blood Urea Nitrogen 21 mg/dL (7-20) Creatinine 1.0 mg/dL (0.6-1.0) Estimated GFR (Cockcroft-Gault) 53.2 Glucose Level 299 mg/dL (70-99) Calcium Level 8.1 mg/dL (8.5-10.1) Test 05/16/19 11:58 05/16/19 15:27 05/16/19 20:44 05/17/19 05:05 Glucose (Fingerstick) 218 mg/dL (70-99) 278 mg/dL (70-99) 331 mg/dL (70-99) White Blood Count 9.1 x10^3/uL (4.0-11.0) Red Blood Count 2.71 x10^6/uL (3.50-5.40) Hemoglobin 8.4 g/dL (12.0-15.5) Hematocrit 25.0 % (36.0-47.0) Mean Corpuscular Volume 92 fL (79-100) Mean Corpuscular Hemoglobin 31 pg (25-35) Mean Corpuscular Hemoglobin Concent 34 g/dL (31-37) Red Cell Distribution Width 16.0 % (11.5-14.5) Platelet Count 527 x10^3/uL (140-400) Neutrophils (%) (Auto) 70 % (31-73) Lymphocytes (%) (Auto) 17 % (24-48) Monocytes (%) (Auto) 9 % (0-9) Eosinophils (%) (Auto) 2 % (0-3) Basophils (%) (Auto) 1 % (0-3) Neutrophils # (Auto) 6.4 x10^3/uL (1.8-7.7) Lymphocytes # (Auto) 1.6 x10^3/uL (1.0-4.8) Monocytes # (Auto) 0.9 x10^3/uL (0.0-1.1) Eosinophils # (Auto) 0.2 x10^3/uL (0.0-0.7) Basophils # (Auto) 0.0 x10^3/uL (0.0-0.2) Sodium Level 140 mmol/L (136-145) Potassium Level 4.0 mmol/L (3.5-5.1) Chloride Level 103 mmol/L (98-107) Carbon Dioxide Level 30 mmol/L (21-32) Anion Gap 7 (6-14) Blood Urea Nitrogen 17 mg/dL (7-20) Creatinine 1.0 mg/dL (0.6-1.0) Estimated GFR (Cockcroft-Gault) 53.2 Glucose Level 186 mg/dL (70-99) Calcium Level 8.5 mg/dL (8.5-10.1) Total Bilirubin 0.8 mg/dL (0.2-1.0) Direct Bilirubin 0.7 mg/dL (0.0-0.2) Aspartate Amino Transf (AST/SGOT) 28 U/L (15-37) Alanine Aminotransferase (ALT/SGPT) 44 U/L (14-59) Alkaline Phosphatase 129 U/L (46-116) Total Protein 5.8 g/dL (6.4-8.2) Albumin 2.0 g/dL (3.4-5.0) Test 05/17/19 07:19 05/17/19 11:41 Glucose (Fingerstick) 164 mg/dL (70-99) 115 mg/dL (70-99) Laboratory Tests Test 05/16/19 15:27 05/16/19 20:44 05/17/19 05:05 05/17/19 07:19 Glucose (Fingerstick) 278 mg/dL (70-99) 331 mg/dL (70-99) 164 mg/dL (70-99) White Blood Count 9.1 x10^3/uL (4.0-11.0) Red Blood Count 2.71 x10^6/uL (3.50-5.40) Hemoglobin 8.4 g/dL (12.0-15.5) Hematocrit 25.0 % (36.0-47.0) Mean Corpuscular Volume 92 fL (79-100) Mean Corpuscular Hemoglobin 31 pg (25-35) Mean Corpuscular Hemoglobin Concent 34 g/dL (31-37) Red Cell Distribution Width 16.0 % (11.5-14.5) Platelet Count 527 x10^3/uL (140-400) Neutrophils (%) (Auto) 70 % (31-73) Lymphocytes (%) (Auto) 17 % (24-48) Monocytes (%) (Auto) 9 % (0-9) Eosinophils (%) (Auto) 2 % (0-3) Basophils (%) (Auto) 1 % (0-3) Neutrophils # (Auto) 6.4 x10^3/uL (1.8-7.7) Lymphocytes # (Auto) 1.6 x10^3/uL (1.0-4.8) Monocytes # (Auto) 0.9 x10^3/uL (0.0-1.1) Eosinophils # (Auto) 0.2 x10^3/uL (0.0-0.7) Basophils # (Auto) 0.0 x10^3/uL (0.0-0.2) Sodium Level 140 mmol/L (136-145) Potassium Level 4.0 mmol/L (3.5-5.1) Chloride Level 103 mmol/L (98-107) Carbon Dioxide Level 30 mmol/L (21-32) Anion Gap 7 (6-14) Blood Urea Nitrogen 17 mg/dL (7-20) Creatinine 1.0 mg/dL (0.6-1.0) Estimated GFR (Cockcroft-Gault) 53.2 Glucose Level 186 mg/dL (70-99) Calcium Level 8.5 mg/dL (8.5-10.1) Total Bilirubin 0.8 mg/dL (0.2-1.0) Direct Bilirubin 0.7 mg/dL (0.0-0.2) Aspartate Amino Transf (AST/SGOT) 28 U/L (15-37) Alanine Aminotransferase (ALT/SGPT) 44 U/L (14-59) Alkaline Phosphatase 129 U/L (46-116) Total Protein 5.8 g/dL (6.4-8.2) Albumin 2.0 g/dL (3.4-5.0) Test 05/17/19 11:41 Glucose (Fingerstick) 115 mg/dL (70-99) Microbiology 04/26/19 Urine Culture - Final, Complete 04/26/19 Urine Culture Result 1 (QUEENIE) - Final, Complete Medications Current Medications Iohexol (Omnipaque 300 Mg/ml) 60 ml 1X ONCE IV Last administered on 04/26/19at 12:06; Start 04/26/19 at 12:30; Stop 04/26/19 at 12:31; Status DC Info (CONTRAST GIVEN -- Rx MONITORING) 1 each PRN DAILY PRN MC SEE COMMENTS; Start 04/26/19 at 12:00; Stop 04/28/19 at 11:59; Status DC Ondansetron HCl (Zofran) 4 mg PRN Q6HRS PRN IV NAUSEA/VOMITING Last administered on 04/29/19at 01:04; Start 04/26/19 at 12:30; Stop 04/29/19 at 04:56; Status DC Cholestyramine Resin (Questran Light) 4 gm BID@1000,2200 PO Last administered on 05/17/19at 10:19; Start 04/26/19 at 22:00 Hydroxyzine HCl (Atarax) 25 mg PRN Q6HRS PRN PO ITCHING Last administered on 05/06/19 21:03; Start 04/26/19 at 12:30 Morphine Sulfate (Morphine Sulfate) 2 mg PRN Q6HRS PRN IV SEVERE PAIN 7-10; Start 04/26/19 at 12:30; Stop 04/26/19 at 12:42; Status DC Acetaminophen/ Hydrocodone Bitart (Lortab 5/325) 1 tab PRN Q6HRS PRN PO MILD PAIN / TEMP; Start 04/26/19 at 12:30; Stop 04/26/19 at 12:42; Status DC Gabapentin (Neurontin) 300 mg TID PO Last administered on 05/17/19 13:22; Start 04/26/19 at 14:00 Lorazepam (Ativan) 0.5 mg PRN BID PRN PO AGITATION Last administered on 05/16/19 15:50; Start 04/26/19 at 12:30 Sertraline HCl (Zoloft) 50 mg DAILY PO Last administered on 05/17/19 08:42; Start 04/27/19 at 09:00 Tramadol HCl (Ultram) 50 mg TID PO Last administered on 04/29/19 09:09; Start 04/26/19 at 14:00; Stop 04/29/19 at 10:09; Status DC Acetaminophen (Tylenol) 325 mg PRN Q6HRS PRN PO MILD PAIN / TEMP; Start 04/26/19 at 12:30 Polyethylene Glycol (miraLAX PACKET) 17 gm DAILY PO Last administered on 05/17/19 08:42; Start 04/27/19 at 09:00 Magnesium Hydroxide (Milk Of Magnesia) 2,400 mg PRN DAILY PRN PO CONSTIPATION Last administered on 04/29/19 02:34; Start 04/26/19 at 12:30 Acetaminophen/ Hydrocodone Bitart (Lortab 5/325) 1 tab PRN Q4HRS PRN PO MODERATE PAIN Last administered on 05/16/19 14:39; Start 04/26/19 at 12:45; Stop 05/16/19 at 16:22; Status DC Morphine Sulfate (Morphine Sulfate) 1 mg PRN Q4HRS PRN IV SEVERE PAIN 7-10 Last administered on 04/29/19 01:11; Start 04/26/19 at 12:45; Stop 04/29/19 at 04:56; Status DC Levofloxacin/ Dextrose 100 ml @ 100 mls/hr 1X ONCE IV Last administered on 04/28/19at 08:31; Start 04/28/19 at 07:15; Stop 04/28/19 at 08:14; Status DC Ringer's Solution 1,000 ml @ 75 mls/hr 1X ONCE IV Last administered on 04/28/19at 14:43; Start 04/28/19 at 12:15; Stop 04/29/19 at 01:34; Status DC Iohexol (Omnipaque 300 Mg/ml) 100 ml STK-MED ONCE .ROUTE ; Start 04/28/19 at 13:24; Stop 04/28/19 at 13:25; Status DC Famotidine (Pepcid Vial) 20 mg STK-MED ONCE .ROUTE ; Start 04/28/19 at 14:12; Stop 04/28/19 at 14:13; Status DC Dexamethasone Sodium Phosphate (Decadron) 20 mg STK-MED ONCE .ROUTE ; Start 04/28/19 at 14:13; Stop 04/28/19 at 14:14; Status DC Lidocaine HCl (Lidocaine Pf 2% Vial) 5 ml STK-MED ONCE .ROUTE ; Start 04/28/19 at 15:00; Stop 04/28/19 at 15:01; Status DC Iohexol (Omnipaque 300 Mg/ml) 100 ml STK-MED ONCE IV Last administered on 04/28/19at 16:20; Start 04/28/19 at 16:20; Stop 04/28/19 at 16:48; Status DC Fentanyl Citrate (Fentanyl 2ml Vial) 25 mcg 1X ONCE IV Last administered on 04/28/19at 17:05; Start 04/28/19 at 17:00; Stop 04/28/19 at 17:01; Status DC Morphine Sulfate (Morphine Sulfate) 2 mg PRN Q4HRS PRN IV SEVERE PAIN 7-10; Start 04/29/19 at 05:00; Stop 05/08/19 at 08:25; Status DC Ondansetron HCl (Zofran) 8 mg PRN Q6HRS PRN IV NAUSEA/VOMITING, 1ST CHOICE Last administered on 05/03/19at 22:23; Start 04/29/19 at 05:00; Stop 05/12/19 at 14:03; Status DC Prochlorperazine Maleate (Compazine) 10 mg PRN Q6HRS PRN PO NAUSEA/VOMITING; Start 04/29/19 at 05:00 Tramadol HCl (Ultram) 50 mg QID PO Last administered on 05/17/19at 13:22; Start 04/29/19 at 13:00 Potassium Chloride/Dextrose/ Sod Cl 1,000 ml @ 75 mls/hr [id number] IV Last administered on 04/30/19at 02:53; Start 04/29/19 at 10:15; Stop 04/30/19 at 10:45; Status DC Amitriptyline HCl (Elavil) 25 mg QHS PO Last administered on 05/16/19at 21:57; Start 04/29/19 at 21:00 Phenylephrine HCl (PHENYLEPHRINE in 0.9% NACL PF) 1 mg STK-MED ONCE IV ; Start 04/28/19 at 14:00; Stop 04/29/19 at 13:10; Status DC Succinylcholine Chloride (Anectine) 200 mg STK-MED ONCE .ROUTE ; Start 04/28/19 at 14:00; Stop 04/29/19 at 13:10; Status DC Propofol (Diprivan) 200 mg STK-MED ONCE IV ; Start 04/28/19 at 14:00; Stop 04/29/19 at 13:10; Status DC Amino Acids/ Glycerin/ Electrolytes 1,000 ml @ 80 mls/hr [id number] IV Last administered on 05/09/19at 08:22; Start 04/30/19 at 10:45; Stop 05/09/19 at 21:59; Status DC Amlodipine Besylate (Norvasc) 5 mg DAILY PO Last administered on 05/05/19at 08:41; Start 05/01/19 at 13:00; Stop 05/05/19 at 10:06; Status DC Hydralazine HCl (Apresoline Inj) 10 mg PRN Q4HRS PRN IVP ELEVATED BP, SEE COMMENTS; Start 05/01/19 at 12:45 Amlodipine Besylate (Norvasc) 2.5 mg DAILY PO Last administered on 05/06/19at 09:28; Start 05/05/19 at 10:30; Stop 05/06/19 at 10:03; Status DC Cefoxitin Sodium (Mefoxin) 2 gm 1X PREOP IVP ; Start 05/08/19 at 08:00; Stop 05/08/19 at 10:15; Status DC Ondansetron HCl (Zofran) 4 mg PRN Q6HRS PRN IV NAUSEA/VOMITING; Start 05/08/19 at 07:00; Stop 05/08/19 at 20:00; Status DC Fentanyl Citrate (Fentanyl 2ml Vial) 25 mcg PRN Q5MIN PRN IV MILD PAIN 1-3 Last administered on 05/08/19at 15:37; Start 05/08/19 at 07:00; Stop 05/08/19 at 20:00; Status DC Fentanyl Citrate (Fentanyl 2ml Vial) 50 mcg PRN Q5MIN PRN IV MODERATE TO SEVERE PAIN; Start 05/08/19 at 07:00; Stop 05/08/19 at 20:00; Status DC Morphine Sulfate (Morphine Sulfate) 1 mg PRN Q10MIN PRN IV SEVERE PAIN 7-10; Start 05/08/19 at 07:00; Stop 05/08/19 at 20:00; Status DC Ringer's Solution 1,000 ml @ 30 mls/hr Q24H IV Last administered on 05/08/19at 07:28; Start 05/08/19 at 07:00; Stop 05/08/19 at 18:59; Status DC Hydromorphone HCl (Dilaudid) 0.5 mg PRN Q10MIN PRN IV SEV PAIN, Second choice; Start 05/08/19 at 07:00; Stop 05/08/19 at 20:00; Status DC Prochlorperazine Edisylate (Compazine) 5 mg PACU PRN PRN IV NAUSEA, MRX1 Last administered on 05/08/19at 15:37; Start 05/08/19 at 07:00; Stop 05/08/19 at 20:00; Status DC Fentanyl Citrate (Fentanyl 2ml Vial) 100 mcg STK-MED ONCE .ROUTE ; Start 05/08/19 at 07:06; Stop 05/08/19 at 07:07; Status DC Glycopyrrolate (Robinul) 1 mg STK-MED ONCE .ROUTE ; Start 05/08/19 at 07:07; Stop 05/08/19 at 07:07; Status DC Rocuronium [place] (Zemuron) 100 mg STK-MED ONCE .ROUTE ; Start 05/08/19 at 07:08; Stop 05/08/19 at 07:08; Status DC Neostigmine Methylsulfate (Neostigmine Methylsulfate) 5 mg STK-MED ONCE .ROUTE ; Start 05/08/19 at 07:08; Stop 05/08/19 at 07:08; Status DC Propofol 20 ml @ As Directed STK-MED ONCE IV ; Start 05/08/19 at 07:09; Stop 05/08/19 at 07:09; Status DC Lidocaine HCl (Lidocaine Pf 2% Vial) 5 ml STK-MED ONCE .ROUTE ; Start 05/08/19 at 07:09; Stop 05/08/19 at 07:09; Status DC Ondansetron HCl (Zofran) 4 mg STK-MED ONCE .ROUTE ; Start 05/08/19 at 07:09; Stop 05/08/19 at 07:09; Status DC Dexamethasone Sodium Phosphate (Decadron) 4 mg STK-MED ONCE .ROUTE ; Start 05/08/19 at 07:09; Stop 05/08/19 at 07:09; Status DC Phenylephrine HCl (Ricco-Synephrine Inj) 10 mg STK-MED ONCE .ROUTE ; Start 05/08/19 at 07:12; Stop 05/08/19 at 07:12; Status DC Sodium Chloride 39.95 ml/ Hydromorphone HCl 0.5 mg/ Ropivacaine 10 ml/ Epidural Dosage Infused (Pha) 50 ml @ 8 mls/hr CONT PRN EPID PER PROTOCOL Last administered on 05/13/19at 03:29; Start 05/08/19 at 09:00; Stop 05/16/19 at 08:33; Status DC Fentanyl Citrate (Fentanyl 2ml Vial) 100 mcg STK-MED ONCE .ROUTE ; Start 05/08/19 at 08:25; Stop 05/08/19 at 08:25; Status DC Ephedrine Sulfate (ePHEDrine PF IN SALINE SYRINGE) 50 mg STK-MED ONCE IV ; Start 05/08/19 at 08:37; Stop 05/08/19 at 08:37; Status DC Cefoxitin Sodium (Mefoxin) 2 gm 1X PREOP IVP ; Start 05/08/19 at 10:15; Stop 05/12/19 at 12:54; Status DC Cefoxitin Sodium (Mefoxin) 2 gm 1X ONCE IVP Last administered on 05/08/19at 12:31; Start 05/08/19 at 12:30; Stop 05/08/19 at 12:31; Status DC Cefoxitin Sodium (Mefoxin) 1 gm STK-MED ONCE IVP ; Start 05/08/19 at 13:51; Stop 05/08/19 at 13:52; Status DC Famotidine (Pepcid Vial) 20 mg DAILY IVP Last administered on 05/09/19at 08:22; Start 05/08/19 at 21:00; Stop 05/09/19 at 16:20; Status DC Heparin Sodium (Porcine) (Heparin Sodium) 5,000 unit Q12HR SQ Last administered on 05/17/19at 08:42; Start 05/08/19 at 14:30 Sodium Chloride (Normal Saline Flush) 3 ml QSHIFT PRN IV AFTER MEDS AND BLOOD DRAWS; Start 05/08/19 at 14:30 Ringer's Solution 1,000 ml @ 100 mls/hr Q10H IV Last administered on 05/09/19at 18:58; Start 05/08/19 at 14:18; Stop 05/09/19 at 19:29; Status DC Naloxone HCl (Narcan) 0.4 mg PRN Q2MIN PRN IV SEE INSTRUCTIONS; Start 05/08/19 at 14:30 Sodium Chloride 1,000 ml @ 25 mls/hr Q24H IV Last administered on 05/15/19at 13:29; Start 05/08/19 at 14:18; Stop 05/16/19 at 08:33; Status DC Ondansetron HCl (Zofran) 4 mg PRN Q6HRS PRN IV NAUESA, 1ST CHOICE Last administered on 05/16/19at 15:50; Start 05/08/19 at 14:30 Fentanyl Citrate (Fentanyl 2ml Vial) 100 mcg STK-MED ONCE .ROUTE ; Start 05/08/19 at 14:29; Stop 05/08/19 at 14:29; Status DC Sevoflurane (Ultane) 90 ml STK-MED ONCE IH ; Start 05/08/19 at 14:44; Stop 05/08/19 at 14:44; Status DC Norepinephrine Bitartrate 250 ml @ 13.438 mls/ hr CONT PRN IV SEE I/O RECORD Last administered on 05/09/19at 23:49; Start 05/08/19 at 18:45; Stop 05/12/19 at 14:03; Status DC Ringer's Solution 500 ml @ 500 mls/hr 1X ONCE IV Last administered on 05/08/19at 19:22; Start 05/08/19 at 18:45; Stop 05/08/19 at 19:44; Status DC Ringer's Solution 500 ml @ 500 mls/hr 1X ONCE IV Last administered on 05/09/19at 03:39; Start 05/09/19 at 03:30; Stop 05/09/19 at 04:29; Status DC Ringer's Solution 500 ml @ 500 mls/hr 1X ONCE IV Last administered on 05/09/19at 10:14; Start 05/09/19 at 08:15; Stop 05/09/19 at 09:14; Status DC Info (Tpn Per Pharmacy) 1 each PRN DAILY PRN MC SEE COMMENTS Last administered on 05/15/19at 13:04; Start 05/09/19 at 13:00; Stop 05/16/19 at 08:33; Status DC Sodium Acetate 90 meq/Potassium Chloride 50 meq/ Potassium Phosphate 13.6 mmol/Magnesium Sulfate 8 meq/ Calcium Gluconate 10 meq/ Multivitamins 10 ml/Chromium/ Copper/Manganese/ Seleni/Zn 1 ml/ Total Parenteral Nutrition/Amino Acids/Dextrose/ Fat Emulsion Intravenous 1,512 ml @ 63 mls/hr TPN CONT IV Last administered on 05/09/19at 21:00; Start 05/09/19 at 22:00; Stop 05/10/19 at 21:59; Status DC Info (Tpn Per Pharmacy) 1 each PRN DAILY PRN MC SEE COMMENTS; Start 05/09/19 at 14:30; Status UNV Pantoprazole Sodium (PROTONIX VIAL for IV PUSH) 40 mg [id number] IVP Last administered on 05/17/19at 06:06; Start 05/09/19 at 18:00 Albumin Human 500 ml @ 125 mls/hr 1X ONCE IV Last administered on 05/09/19at 17:33; Start 05/09/19 at 17:30; Stop 05/09/19 at 21:29; Status DC Diphenhydramine HCl (Benadryl) 12.5 mg PRN Q6HRS PRN IVP ITCHING Last administered on 05/14/19at 14:14; Start 05/09/19 at 18:30 Acetaminophen (Tylenol Supp) 650 mg PRN Q8HRS PRN [place] MILD PAIN / TEMP; Start 05/09/19 at 18:30 Potassium Phosphate 13.6 mmol/Dextrose 104.5333 ml @ 52.267 m... Q2H IV Last administered on 05/10/19at 11:28; Start 05/10/19 at 09:00; Stop 05/10/19 at 12:59; Status DC Sodium Acetate 90 meq/Potassium Chloride 50 meq/ Potassium Phosphate 18 mmol/ M agnesium Sulfate 10 meq/Calcium Gluconate 10 meq/ Multivitamins 10 ml/Chromium/ Copper/Manganese/ Seleni/Zn 1 ml/ Total Parenteral Nutrition/Amino Acids/Dextrose/ Fat Emulsion Intravenous 1,512 ml @ 63 mls/hr TPN CONT IV Last administered on 05/10/19at 21:32; Start 05/10/19 at 22:00; Stop 05/11/19 at 21:59; Status DC Potassium Phosphate 13.6 mmol/Dextrose 104.5333 ml @ 52.267 m... Q2H IV Last administered on 05/11/19at 11:37; Start 05/11/19 at 11:30; Stop 05/11/19 at 13:29; Status DC Sodium Acetate 90 meq/Potassium Chloride 50 meq/ Potassium Phosphate 24 mmol/ Magnesium Sulfate 15 meq/Calcium Gluconate 10 meq/ Multivitamins 10 ml/Chromium/ Copper/Manganese/ Seleni/Zn 1 ml/ Total Parenteral Nutrition/Amino Acids/Dextrose/ Fat Emulsion Intravenous 1,512 ml @ 63 mls/hr TPN CONT IV Last administered on 05/11/19at 22:40; Start 05/11/19 at 22:00; Stop 05/12/19 at 21:59; Status DC Insulin Human Lispro (HumaLOG) 0-5 UNITS TIDWMEALS SQ Last administered on 05/17/19at 08:42; Start 05/11/19 at 12:00 Dextrose (Dextrose 50%-Water Syringe) 12.5 gm PRN Q15MIN PRN IV SEE COMMENTS; Start 05/11/19 at 11:30; Stop 05/16/19 at 08:33; Status DC Dextrose 250 ml PRN Q15MIN PRN IV SEE COMMENTS; Start 05/11/19 at 11:30 Sodium Acetate 90 meq/Potassium Chloride 50 meq/ Potassium Phosphate 24 mmol/ Magnesium Sulfate 18 meq/Calcium Gluconate 10 meq/ Multivitamins 10 ml/Chromium/ Copper/Manganese/ Seleni/Zn 1 ml/ Insulin Human Regular 7 unit/ Total Parenteral Nutrition/Amino Acids/Dextrose/ Fat Emulsion Intravenous 1,512 ml @ 63 mls/hr TPN CONT IV Last administered on 05/12/19at 22:28; Start 05/12/19 at 22:00; Stop 05/13/19 at 21:59; Status DC Naloxone HCl (Narcan) 0.4 mg PRN Q2MIN PRN IV SEE INSTRUCTIONS; Start 05/13/19 at 09:15; Status UNV Sodium Chloride 1,000 ml @ 25 mls/hr Q24H IV ; Start 05/13/19 at 09:06; Status UNV Hydromorphone HCl 30 ml @ 0 mls/hr CONT PRN PRN IV PER PROTOCOL Last administ ered on 05/15/19at 16:42; Start 05/13/19 at 09:30; Stop 05/16/19 at 08:33; Status DC Sodium Acetate 90 meq/Potassium Chloride 30 meq/ Potassium Phosphate 24 mmol/ Magnesium Sulfate 18 meq/Calcium Gluconate 10 meq/ Multivitamins 10 ml/Chromium/ Copper/Manganese/ Seleni/Zn 1 ml/ Insulin Human Regular 7 unit/ Total Parenteral Nutrition/Amino Acids/Dextrose/ Fat Emulsion Intravenous 1,512 ml @ 63 mls/hr TPN CONT IV Last administered on 05/13/19at 22:07; Start 05/13/19 at 22:00; Stop 05/14/19 at 21:59; Status DC Hydromorphone HCl (Dilaudid Standard WIRE MILL ROVER) 12 mg STK-MED ONCE IV ; Start 05/13/19 at 09:47; Stop 05/14/19 at 08:59; Status DC Sodium Acetate 90 meq/Potassium Chloride 30 meq/ Potassium Phosphate 24 mmol/ Magnesium Sulfate 18 meq/Calcium Gluconate 10 meq/ Multivitamins 10 ml/Chromium/ Copper/Manganese/ Seleni/Zn 1 ml/ Insulin Human Regular 7 unit/ Total Parenteral Nutrition/Amino Acids/Dextrose/ Fat Emulsion Intravenous 1,512 ml @ 63 mls/hr TPN CONT IV Last administered on 05/14/19at 22:18; Start 05/14/19 at 22:00; Stop 05/15/19 at 21:59; Status DC Hydromorphone HCl (Dilaudid Standard WIRE MILL ROVER) 12 mg STK-MED ONCE IV ; Start 05/14/19 at 13:41; Stop 05/15/19 at 10:40; Status DC Sodium Acetate 90 meq/Potassium Chloride 30 meq/ Potassium Phosphate 24 mmol/ Magnesium Sulfate 18 meq/Calcium Gluconate 10 meq/ Multivitamins 10 ml/Chromium/ Copper/Manganese/ Seleni/Zn 1 ml/ Insulin Human Regular 7 unit/ Total Parenteral Nutrition/Amino Acids/Dextrose/ Fat Emulsion Intravenous 1,512 ml @ 63 mls/hr TPN CONT IV Last administered on 05/15/19at 22:07; Start 05/15/19 at 22:00; Stop 05/16/19 at 21:59; Status DC Hydromorphone HCl (Dilaudid Standard WIRE MILL ROVER) 12 mg STK-MED ONCE IV ; Start 05/15/19 at 16:18; Stop 05/16/19 at 11:57; Status DC Sodium Acetate 90 meq/Potassium Chloride 30 meq/ Potassium Phosphate 24 mmol/ Magnesium Sulfate 18 meq/Calcium Gluconate 10 meq/ Multivitamins 10 ml/Chromium/ Copper/Manganese/ Seleni/Zn 1 ml/ Insulin Human Regular 12 unit/ Total Parenteral Nutrition/Amino Acids/Dextrose/ Fat Emulsion Intravenous 1,512 ml @ 63 mls/hr TPN CONT IV ; Start 05/16/19 at 22:00; Stop 05/16/19 at 14:11; Status DC Acetaminophen/ Hydrocodone Bitart (Lortab 10/325) 1 tab PRN Q4HRS PRN PO MODERATE PAIN, SEVERE PAIN Last administered on 05/17/19at 05:11; Start 05/16/19 at 16:30 Hydromorphone HCl (Dilaudid) 1 mg PRN Q4HRS PRN IV SEVERE PAIN 7-10; Start 05/16/19 at 16:30; Stop 05/16/19 at 16:23; Status DC Hydromorphone HCl (Dilaudid) 0.1 mg PRN Q4HRS PRN IVP PAIN Last administered on 05/17/19at 10:19; Start 05/16/19 at 16:30 Active Scripts Active Zoloft (Sertraline Hcl) 50 Mg Tablet 50 Mg PO DAILY [Polyethylene Glycol 3350] 17 GM Packet 17 Gm PO DAILY [Oxycodone Hcl/Acetaminophen] 1 TAB Tablet 1 Tab PO PRN Q4HRS PRN Neurontin (Gabapentin) 300 Mg Capsule 300 Mg PO TID [Amoxicillin/Potassium Clav] 1 TAB Tablet 1 Tab PO BID [Amitriptyline Hcl] 50 MG Tablet 50 Mg PO QHS Lipitor (Atorvastatin Calcium) 10 Mg Tablet 10 Mg PO QHS Vitals/I & O Vital Sign - Last 24 Hours 05/16/19 05/16/19 05/16/19 05/16/19 14:39 14:40 15:00 15:50 Temp 97.9 97.9 Pulse 82 Resp 18 B/P (MAP) 128/72 (90) Pulse Ox 99 O2 Delivery Room Air Room Air Room Air Room Air 05/16/19 05/16/19 05/16/19 05/16/19 16:32 17:12 17:12 18:15 Pulse Ox 98 O2 Delivery Room Air Nasal Cannula Nasal Cannula Room Air O2 Flow Rate 2.0 2.0 05/16/19 05/16/19 05/16/19 05/16/19 19:00 20:00 20:42 21:57 Temp 98.9 98.9 Pulse 91 Resp 18 20 20 B/P (MAP) 132/69 (90) Pulse Ox 95 O2 Delivery Room Air Nasal Cannula Room Air Nasal Cannula O2 Flow Rate 2.0 2.0 05/16/19 05/16/19 05/16/19 05/16/19 22:48 22:48 23:00 23:40 Temp 98.9 98.9 Pulse 85 Resp 20 20 18 20 B/P (MAP) 125/65 (85) Pulse Ox 96 O2 Delivery Nasal Cannula Nasal Cannula Room Air Nasal Cannula O2 Flow Rate 2.0 2.0 05/17/19 05/17/19 05/17/19 05/17/19 01:08 02:01 02:13 02:31 Resp 20 20 20 20 O2 Delivery Nasal Cannula Nasal Cannula Nasal Cannula Nasal Cannula O2 Flow Rate 2.0 2.0 2.0 2.0 8/2405/17/19 05/17/19 05/17/19 03:00 05:11 06:06 06:34 Temp 98.3 98.3 Pulse 90 Resp 18 20 20 20 B/P (MAP) 113/55 (74) Pulse Ox 97 O2 Delivery Room Air Nasal Cannula Nasal Cannula Nasal Cannula O2 Flow Rate 2.0 2.0 2.0 05/17/19 05/17/19 05/17/19 05/17/19 06:41 07:00 07:25 08:42 Temp 98.0 98.0 Pulse 82 Resp 20 18 B/P (MAP) 124/62 (82) Pulse Ox 96 O2 Delivery Nasal Cannula Room Air Nasal Cannula Room Air O2 Flow Rate 2.0 2.0 05/17/19 05/17/19 05/17/19 05/17/19 10:19 10:19 11:00 11:09 Temp 98.1 98.1 Pulse 79 Resp 18 B/P (MAP) 115/60 (78) Pulse Ox 96 O2 Delivery Room Air Room Air Room Air Room Air 05/17/19 13:22 O2 Delivery Room Air Intake and Output 05/16/19 05/16/19 05/17/19 14:59 22:59 06:59 Intake Total 100 ml 240 ml Output Total 250 ml 500 ml Balance -250 ml -400 ml 240 ml MOSHE LINK MD May 17, 2019 14:01
--- NOTE | 2019-05-17 14:20 | NUR ---
G tube suction on hold. Addendum: 05/17/19 at 1447 by GURVINDER MESA RN Suction on hold at 1320.
--- NOTE | 2019-05-17 14:20 | NUR ---
G tube placed back on LIS suction.
[2019-05-17 15:00] VITALS: BP 117/69
[2019-05-17] MEDS: PANTOPRAZOLE 40 MG TABLET.DR. PO SCH (16:56)
--- NOTE | 2019-05-17 18:15 | NUR ---
Pt. asking when she can have pain meds. Pt.given Lortab and asking when she can have "the liquid stuff". Pt. educated pain med timing, and giving the meds a chance to work. Pt. also educated on relaxation techniques. Pt. then stated that she will definitly need "the liquid stuff" when it is time.
[2019-05-17 19:45] VITALS: BP 122/67
[2019-05-17] MEDS: AMITRIPTYLINE HCL 25 MG TABLET. PO SCH (19:47)
[2019-05-18] VITALS (7 sets, daily range): BP systolic 120–143; BP diastolic 64–84
[2019-05-18] MEDS: diphenhydrAMINE 50 MG/ML VIAL IVP PRN ×2 (03:20→21:37)
[2019-05-18] MEDS: PANTOPRAZOLE 40 MG TABLET.DR. PO SCH ×2 (05:22→18:26)
[2019-05-18 06:38] LABS: CALCIUM 8.4 mg/dL (8.5-10.1); CREATININE 1.1 mg/dL (0.6-1.0); GFR 47.7; POTASSIUM 3.6 mmol/L (3.5-5.1)
[2019-05-18] MEDS: INSULIN LISPRO 300 UNITS/3 ML VIAL. SQ SCH ×2 (08:00→12:00)
[2019-05-18] MEDS: SERTRALINE 50 MG TABLET. PO SCH (08:35)
[2019-05-18] MEDS: POLYETHYLENE GLYCOL 3350 17 GM PACKET. PO SCH (08:35)
[2019-05-18] MEDS: GABAPENTIN 300 MG CAPSULE. PO SCH ×3 (08:35→21:14)
[2019-05-18] MEDS: traMADol 50 MG TABLET PO SCH ×4 (08:35→21:15)
[2019-05-18] MEDS: ONDANSETRON PF 4 MG/2 ML VIAL. IV PRN ×2 (08:40→14:47)
[2019-05-18] MEDS: HEPARIN for SUB-Q USE 5,000 UNIT/ML VIAL. SQ SCH ×2 (08:43→21:14)
[2019-05-18] MEDS: HYDROcodone/APAP 10/325 1 TAB TABLET PO PRN (10:19)
--- NOTE | 2019-05-18 10:24 | NUR ---
Pt. and reeducated on pain meds and med schedule. Pt and verbalized understanding.
--- NOTE | 2019-05-18 10:30 | PDOC ---
IM PROGRESS NOTES- Subjective Subjective No dyspnea but has some joint pains. Objective Vitals/I&O Vital Signs Date Time Temp Pulse Resp B/P (MAP) Pulse Ox O2 Delivery O2 Flow Rate FiO2 05/18/19 10:20 Room Air 05/18/19 07:00 97.9 93 18 124/68 (86) 98 97.9 05/18/19 01:55 2.0 l I & O 05/17/19 05/17/19 05/18/19 15:00 23:00 07:00 Intake Total 480 ml Output Total 400 ml 80 ml 60 ml Balance -400 ml -80 ml 420 ml Physical Exam Physical Exam General appearance - alert,weak, and in no distress and oriented to person, place, and time Mental Status - alert, oriented to person, place, and time, affect appropriate to mood Head - normal Chest - clear to auscultation, no wheezes, rales or rhonchi, symmetric air entry Heart - S1 and S2 normal Abdomen - soft Neurological - alert and oriented Musculoskeletal - no muscular tenderness noted Extremities - no pedal edema Skin - warm and dry Labs Laboratory Tests Test 05/17/19 11:41 05/17/19 17:00 05/18/19 05:45 05/18/19 07:43 Glucose (Fingerstick) 115 mg/dL (70-99) H 113 mg/dL (70-99) H 131 mg/dL (70-99) H Sodium Level 139 mmol/L (136-145) Potassium Level 3.6 mmol/L (3.5-5.1) Chloride Level 104 mmol/L (98-107) Carbon Dioxide Level 25 mmol/L (21-32) Anion Gap 10 (6-14) Blood Urea Nitrogen 15 mg/dL (7-20) Creatinine 1.1 mg/dL (0.6-1.0) H Estimated GFR (Cockcroft-Gault) 47.7 Glucose Level 150 mg/dL (70-99) H Calcium Level 8.4 mg/dL (8.5-10.1) L Laboratory Tests 05/18/19 05:45 Meds Current Medications Medications (Trade) Dose Ordered Sig/Meka Route PRN Reason Start Time Stop Time Status Last Admin Dose Admin Pantoprazole Sodium (Protonix) 40 mg [id number] PO 05/17/19 18:00 05/18/19 05:22 Assessment Assessment Problems Medical Problems: (1) Acute hepatitis Status: Acute (2) Epigastric pain Status: Acute (3) Generalized pruritus Status: Acute (4) Obstructive jaundice Status: Acute Problems: Obstructive jaundice due to Pancreatic cancer. PLAN: DM glucose 363- TPN stopped.Blood sugar is now improving.Monitor. PT/OT/rehab TPN stopped.Eating better.K is 3.6 .Replace. Check labs in AM advancing diet. Select/SNU screen for Sunday Procedure Performed:05/08/19 whipple procedure (specifically: pyloric sparing, pancreaticogastrostomy), G- tube placement Plan Plan For more details regarding further plans, please refer to the orders. NEETA LYMAN MD May 18, 2019 10:30
--- NOTE | 2019-05-18 11:00 | PDOC ---
PROGRESS NOTES Subjective Subjective main complaint is "fibromyalgia pain", pain in back and legs, denies abdominal pain, taking po well Objective Objective Vital Signs Date Time Temp Pulse Resp B/P (MAP) Pulse Ox O2 Delivery O2 Flow Rate FiO2 05/18/19 10:20 Room Air 05/18/19 07:00 97.9 93 18 124/68 (86) 98 97.9 05/18/19 01:55 2.0 Intake and Output 05/18/19 06:59 Intake Total 480 ml Output Total 540 ml Balance -60 ml Intake Oral 480 ml Gastric Drainage Total 420 ml Drainage Total 120 ml # Voids 3 Physical Exam Abdomen: Soft (MIRIAM drains with serosang fluid) Assessment Assessment Problems Medical Problems: (1) Acute hepatitis Status: Acute (2) Epigastric pain Status: Acute (3) Generalized pruritus Status: Acute (4) Obstructive jaundice Status: Acute Plan Plan of Care No new surgical recs Comment Review of Relevant I have reviewed the following items betty (where applicable) has been applied. Labs Laboratory Tests Test 05/16/19 11:58 05/16/19 15:27 05/16/19 20:44 05/17/19 05:05 Glucose (Fingerstick) 218 mg/dL (70-99) 278 mg/dL (70-99) 331 mg/dL (70-99) White Blood Count 9.1 x10^3/uL (4.0-11.0) Red Blood Count 2.71 x10^6/uL (3.50-5.40) Hemoglobin 8.4 g/dL (12.0-15.5) Hematocrit 25.0 % (36.0-47.0) Mean Corpuscular Volume 92 fL (79-100) Mean Corpuscular Hemoglobin 31 pg (25-35) Mean Corpuscular Hemoglobin Concent 34 g/dL (31-37) Red Cell Distribution Width 16.0 % (11.5-14.5) Platelet Count 527 x10^3/uL (140-400) Neutrophils (%) (Auto) 70 % (31-73) Lymphocytes (%) (Auto) 17 % (24-48) Monocytes (%) (Auto) 9 % (0-9) Eosinophils (%) (Auto) 2 % (0-3) Basophils (%) (Auto) 1 % (0-3) Neutrophils # (Auto) 6.4 x10^3/uL (1.8-7.7) Lymphocytes # (Auto) 1.6 x10^3/uL (1.0-4.8) Monocytes # (Auto) 0.9 x10^3/uL (0.0-1.1) Eosinophils # (Auto) 0.2 x10^3/uL (0.0-0.7) Basophils # (Auto) 0.0 x10^3/uL (0.0-0.2) Sodium Level 140 mmol/L (136-145) Potassium Level 4.0 mmol/L (3.5-5.1) Chloride Level 103 mmol/L (98-107) Carbon Dioxide Level 30 mmol/L (21-32) Anion Gap 7 (6-14) Blood Urea Nitrogen 17 mg/dL (7-20) Creatinine 1.0 mg/dL (0.6-1.0) Estimated GFR (Cockcroft-Gault) 53.2 Glucose Level 186 mg/dL (70-99) Calcium Level 8.5 mg/dL (8.5-10.1) Total Bilirubin 0.8 mg/dL (0.2-1.0) Direct Bilirubin 0.7 mg/dL (0.0-0.2) Aspartate Amino Transf (AST/SGOT) 28 U/L (15-37) Alanine Aminotransferase (ALT/SGPT) 44 U/L (14-59) Alkaline Phosphatase 129 U/L (46-116) Total Protein 5.8 g/dL (6.4-8.2) Albumin 2.0 g/dL (3.4-5.0) Test 05/17/19 07:19 05/17/19 11:41 05/17/19 17:00 05/18/19 05:45 Glucose (Fingerstick) 164 mg/dL (70-99) 115 mg/dL (70-99) 113 mg/dL (70-99) Sodium Level 139 mmol/L (136-145) Potassium Level 3.6 mmol/L (3.5-5.1) Chloride Level 104 mmol/L (98-107) Carbon Dioxide Level 25 mmol/L (21-32) Anion Gap 10 (6-14) Blood Urea Nitrogen 15 mg/dL (7-20) Creatinine 1.1 mg/dL (0.6-1.0) Estimated GFR (Cockcroft-Gault) 47.7 Glucose Level 150 mg/dL (70-99) Calcium Level 8.4 mg/dL (8.5-10.1) Test 05/18/19 07:43 Glucose (Fingerstick) 131 mg/dL (70-99) Laboratory Tests Test 05/17/19 11:41 05/17/19 17:00 05/18/19 05:45 05/18/19 07:43 Glucose (Fingerstick) 115 mg/dL (70-99) 113 mg/dL (70-99) 131 mg/dL (70-99) Sodium Level 139 mmol/L (136-145) Potassium Level 3.6 mmol/L (3.5-5.1) Chloride Level 104 mmol/L (98-107) Carbon Dioxide Level 25 mmol/L (21-32) Anion Gap 10 (6-14) Blood Urea Nitrogen 15 mg/dL (7-20) Creatinine 1.1 mg/dL (0.6-1.0) Estimated GFR (Cockcroft-Gault) 47.7 Glucose Level 150 mg/dL (70-99) Calcium Level 8.4 mg/dL (8.5-10.1) Microbiology 04/26/19 Urine Culture - Final, Complete 04/26/19 Urine Culture Result 1 (QUEENIE) - Final, Complete Medications Current Medications Iohexol (Omnipaque 300 Mg/ml) 60 ml 1X ONCE IV Last administered on 04/26/19at 12:06; Start 04/26/19 at 12:30; Stop 04/26/19 at 12:31; Status DC Info (CONTRAST GIVEN -- Rx MONITORING) 1 each PRN DAILY PRN MC SEE COMMENTS; Start 04/26/19 at 12:00; Stop 04/28/19 at 11:59; Status DC Ondansetron HCl (Zofran) 4 mg PRN Q6HRS PRN IV NAUSEA/VOMITING Last ad ministered on 04/29/19at 01:04; Start 04/26/19 at 12:30; Stop 04/29/19 at 04:56; Status DC Cholestyramine Resin (Questran Light) 4 gm BID@1000,2200 PO Last administered on 05/17/19at 20:00; Start 04/26/19 at 22:00 Hydroxyzine HCl (Atarax) 25 mg PRN Q6HRS PRN PO ITCHING Last administered on 05/06/19 21:03; Start 04/26/19 at 12:30 Morphine Sulfate (Morphine Sulfate) 2 mg PRN Q6HRS PRN IV SEVERE PAIN 7-10; Start 04/26/19 at 12:30; Stop 04/26/19 at 12:42; Status DC Acetaminophen/ Hydrocodone Bitart (Lortab 5/325) 1 tab PRN Q6HRS PRN PO MILD PAIN / TEMP; Start 04/26/19 at 12:30; Stop 04/26/19 at 12:42; Status DC Gabapentin (Neurontin) 300 mg TID PO Last administered on 05/18/19 08:44; Start 04/26/19 at 14:00 Lorazepam (Ativan) 0.5 mg PRN BID PRN PO AGITATION Last administered on 05/16/19 15:50; Start 04/26/19 at 12:30 Sertraline HCl (Zoloft) 50 mg DAILY PO Last administered on 05/18/19 08:44; Start 04/27/19 at 09:00 Tramadol HCl (Ultram) 50 mg TID PO Last administered on 04/29/19 09:09; Start 04/26/19 at 14:00; Stop 04/29/19 at 10:09; Status DC Acetaminophen (Tylenol) 325 mg PRN Q6HRS PRN PO MILD PAIN / TEMP; Start 04/26/19 at 12:30 Polyethylene Glycol (miraLAX PACKET) 17 gm DAILY PO Last administered on 05/18/19 08:44; Start 04/27/19 at 09:00 Magnesium Hydroxide (Milk Of Magnesia) 2,400 mg PRN DAILY PRN PO CONSTIPATION Last administered on 04/29/19 02:34; Start 04/26/19 at 12:30 Acetaminophen/ Hydrocodone Bitart (Lortab 5/325) 1 tab PRN Q4HRS PRN PO MODERATE PAIN Last administered on 05/16/19 14:39; Start 04/26/19 at 12:45; Stop 05/16/19 at 16:22; Status DC Morphine Sulfate (Morphine Sulfate) 1 mg PRN Q4HRS PRN IV SEVERE PAIN 7-10 Last administered on 04/29/19at 01:11; Start 04/26/19 at 12:45; Stop 04/29/19 at 04:56; Status DC Levofloxacin/ Dextrose 100 ml @ 100 mls/hr 1X ONCE IV Last administered on 04/28/19at 08:31; Start 04/28/19 at 07:15; Stop 04/28/19 at 08:14; Status DC Ringer's Solution 1,000 ml @ 75 mls/hr 1X ONCE IV Last administered on 04/28/19at 14:43; Start 04/28/19 at 12:15; Stop 04/29/19 at 01:34; Status DC Iohexol (Omnipaque 300 Mg/ml) 100 ml STK-MED ONCE .ROUTE ; Start 04/28/19 at 13:24; Stop 04/28/19 at 13:25; Status DC Famotidine (Pepcid Vial) 20 mg STK-MED ONCE .ROUTE ; Start 04/28/19 at 14:12; Stop 04/28/19 at 14:13; Status DC Dexamethasone Sodium Phosphate (Decadron) 20 mg STK-MED ONCE .ROUTE ; Start 04/28/19 at 14:13; Stop 04/28/19 at 14:14; Status DC Lidocaine HCl (Lidocaine Pf 2% Vial) 5 ml STK-MED ONCE .ROUTE ; Start 04/28/19 at 15:00; Stop 04/28/19 at 15:01; Status DC Iohexol (Omnipaque 300 Mg/ml) 100 ml STK-MED ONCE IV Last administered on 04/28/19at 16:20; Start 04/28/19 at 16:20; Stop 04/28/19 at 16:48; Status DC Fentanyl Citrate (Fentanyl 2ml Vial) 25 mcg 1X ONCE IV Last administered on 04/28/19at 17:05; Start 04/28/19 at 17:00; Stop 04/28/19 at 17:01; Status DC Morphine Sulfate (Morphine Sulfate) 2 mg PRN Q4HRS PRN IV SEVERE PAIN 7-10; Start 04/29/19 at 05:00; Stop 05/08/19 at 08:25; Status DC Ondansetron HCl (Zofran) 8 mg PRN Q6HRS PRN IV NAUSEA/VOMITING, 1ST CHOICE Last administered on 05/03/19 22:23; Start 04/29/19 at 05:00; Stop 05/12/19 at 14:03; Status DC Prochlorperazine Maleate (Compazine) 10 mg PRN Q6HRS PRN PO NAUSEA/VOMITING Last administered on 05/17/19 20:00; Start 04/29/19 at 05:00 Tramadol HCl (Ultram) 50 mg QID PO Last administered on 05/18/19 08:44; Start 04/29/19 at 13:00 Potassium Chloride/Dextrose/ Sod Cl 1,000 ml @ 75 mls/hr [id number] IV Last admi nistered on 04/30/19 02:53; Start 04/29/19 at 10:15; Stop 04/30/19 at 10:45; Status DC Amitriptyline HCl (Elavil) 25 mg QHS PO Last administered on 05/17/19 20:00; Start 04/29/19 at 21:00 Phenylephrine HCl (PHENYLEPHRINE in 0.9% NACL PF) 1 mg STK-MED ONCE IV ; Start 04/28/19 at 14:00; Stop 04/29/19 at 13:10; Status DC Succinylcholine Chloride (Anectine) 200 mg STK-MED ONCE .ROUTE ; Start 04/28/19 at 14:00; Stop 04/29/19 at 13:10; Status DC Propofol (Diprivan) 200 mg STK-MED ONCE IV ; Start 04/28/19 at 14:00; Stop 04/29/19 at 13:10; Status DC Amino Acids/ Glycerin/ Electrolytes 1,000 ml @ 80 mls/hr [id number] IV Last administered on 05/09/19 08:22; Start 04/30/19 at 10:45; Stop 05/09/19 at 21:59; Status DC Amlodipine Besylate (Norvasc) 5 mg DAILY PO Last administered on 05/05/19 08:41; Start 05/01/19 at 13:00; Stop 05/05/19 at 10:06; Status DC Hydralazine HCl (Apresoline Inj) 10 mg PRN Q4HRS PRN IVP ELEVATED BP, SEE COMMENTS; Start 05/01/19 at 12:45 Amlodipine Besylate (Norvasc) 2.5 mg DAILY PO Last administered on 05/06/19at 09:28; Start 05/05/19 at 10:30; Stop 05/06/19 at 10:03; Status DC Cefoxitin Sodium (Mefoxin) 2 gm 1X PREOP IVP ; Start 05/08/19 at 08:00; Stop 05/08/19 at 10:15; Status DC Ondansetron HCl (Zofran) 4 mg PRN Q6HRS PRN IV NAUSEA/VOMITING; Start 05/08/19 at 07:00; Stop 05/08/19 at 20:00; Status DC Fentanyl Citrate (Fentanyl 2ml Vial) 25 mcg PRN Q5MIN PRN IV MILD PAIN 1-3 Last administered on 05/08/19at 15:37; Start 05/08/19 at 07:00; Stop 05/08/19 at 20:00; Status DC Fentanyl Citrate (Fentanyl 2ml Vial) 50 mcg PRN Q5MIN PRN IV MODERATE TO SEVERE PAIN; Start 05/08/19 at 07:00; Stop 05/08/19 at 20:00; Status DC Morphine Sulfate (Morphine Sulfate) 1 mg PRN Q10MIN PRN IV SEVERE PAIN 7-10; Start 05/08/19 at 07:00; Stop 05/08/19 at 20:00; Status DC Ringer's Solution 1,000 ml @ 30 mls/hr Q24H IV Last administered on 05/08/19at 07:28; Start 05/08/19 at 07:00; Stop 05/08/19 at 18:59; Status DC Hydromorphone HCl (Dilaudid) 0.5 mg PRN Q10MIN PRN IV SEV PAIN, Second choice; Start 05/08/19 at 07:00; Stop 05/08/19 at 20:00; Status DC Prochlorperazine Edisylate (Compazine) 5 mg PACU PRN PRN IV NAUSEA, MRX1 Last administered on 05/08/19at 15:37; Start 05/08/19 at 07:00; Stop 05/08/19 at 20:00; Status DC Fentanyl Citrate (Fentanyl 2ml Vial) 100 mcg STK-MED ONCE .ROUTE ; Start 05/08/19 at 07:06; Stop 05/08/19 at 07:07; Status DC Glycopyrrolate (Robinul) 1 mg STK-MED ONCE .ROUTE ; Start 05/08/19 at 07:07; Stop 05/08/19 at 07:07; Status DC Rocuronium [place] (Zemuron) 100 mg STK-MED ONCE .ROUTE ; Start 05/08/19 at 07:08; Stop 05/08/19 at 07:08; Status DC Neostigmine Methylsulfate (Neostigmine Methylsulfate) 5 mg STK-MED ONCE .ROUTE ; Start 05/08/19 at 07:08; Stop 05/08/19 at 07:08; Status DC Propofol 20 ml @ As Directed STK-MED ONCE IV ; Start 05/08/19 at 07:09; Stop 05/08/19 at 07:09; Status DC Lidocaine HCl (Lidocaine Pf 2% Vial) 5 ml STK-MED ONCE .ROUTE ; Start 05/08/19 at 07:09; Stop 05/08/19 at 07:09; Status DC Ondansetron HCl (Zofran) 4 mg STK-MED ONCE .ROUTE ; Start 05/08/19 at 07:09; Stop 05/08/19 at 07:09; Status DC Dexamethasone Sodium Phosphate (Decadron) 4 mg STK-MED ONCE .ROUTE ; Start 05/08/19 at 07:09; Stop 05/08/19 at 07:09; Status DC Phenylephrine HCl (Ricco-Synephrine Inj) 10 mg STK-MED ONCE .ROUTE ; Start 05/08/19 at 07:12; Stop 05/08/19 at 07:12; Status DC Sodium Chloride 39.95 ml/ Hydromorphone HCl 0.5 mg/ Ropivacaine 10 ml/ Epidural Dosage Infused (Pha) 50 ml @ 8 mls/hr CONT PRN EPID PER PROTOCOL Last administered on 05/13/19at 03:29; Start 05/08/19 at 09:00; Stop 05/16/19 at 08: 33; Status DC Fentanyl Citrate (Fentanyl 2ml Vial) 100 mcg STK-MED ONCE .ROUTE ; Start 05/08/19 at 08:25; Stop 05/08/19 at 08:25; Status DC Ephedrine Sulfate (ePHEDrine PF IN SALINE SYRINGE) 50 mg STK-MED ONCE IV ; Start 05/08/19 at 08:37; Stop 05/08/19 at 08:37; Status DC Cefoxitin Sodium (Mefoxin) 2 gm 1X PREOP IVP ; Start 05/08/19 at 10:15; Stop 05/12/19 at 12:54; Status DC Cefoxitin Sodium (Mefoxin) 2 gm 1X ONCE IVP Last administered on 05/08/19at 12:31; Start 05/08/19 at 12:30; Stop 05/08/19 at 12:31; Status DC Cefoxitin Sodium (Mefoxin) 1 gm STK-MED ONCE IVP ; Start 05/08/19 at 13:51; Stop 05/08/19 at 13:52; Status DC Famotidine (Pepcid Vial) 20 mg DAILY IVP Last administered on 05/09/19 08:22; Start 05/08/19 at 21:00; Stop 05/09/19 at 16:20; Status DC Heparin Sodium (Porcine) (Heparin Sodium) 5,000 unit Q12HR SQ Last administered on 05/18/19 08:44; Start 05/08/19 at 14:30 Sodium Chloride (Normal Saline Flush) 3 ml QSHIFT PRN IV AFTER MEDS AND BLOOD DRAWS; Start 05/08/19 at 14:30 Ringer's Solution 1,000 ml @ 100 mls/hr Q10H IV Last administered on 05/09/19at 18:58; Start 05/08/19 at 14:18; Stop 05/09/19 at 19:29; Status DC Naloxone HCl (Narcan) 0.4 mg PRN Q2MIN PRN IV SEE INSTRUCTIONS; Start 05/08/19 at 14:30 Sodium Chloride 1,000 ml @ 25 mls/hr Q24H IV Last administered on 05/15/19at 13:29; Start 05/08/19 at 14:18; Stop 05/16/19 at 08:33; Status DC Ondansetron HCl (Zofran) 4 mg PRN Q6HRS PRN IV NAUESA, 1ST CHOICE Last administered on 05/18/19 08:44; Start 05/08/19 at 14:30 Fentanyl Citrate (Fentanyl 2ml Vial) 100 mcg STK-MED ONCE .ROUTE ; Start 05/08/19 at 14:29; Stop 05/08/19 at 14:29; Status DC Sevoflurane (Ultane) 90 ml STK-MED ONCE IH ; Start 05/08/19 at 14:44; Stop 05/08/19 at 14:44; Status DC Norepinephrine Bitartrate 250 ml @ 13.438 mls/ hr CONT PRN IV SEE I/O RECORD Last administered on 05/09/19at 23:49; Start 05/08/19 at 18:45; Stop 05/12/19 at 14:03; Status DC Ringer's Solution 500 ml @ 500 mls/hr 1X ONCE IV Last administered on 05/08/19at 19:22; Start 05/08/19 at 18:45; Stop 05/08/19 at 19:44; Status DC Ringer's Solution 500 ml @ 500 mls/hr 1X ONCE IV Last administered on 05/09/19at 03:39; Start 05/09/19 at 03:30; Stop 05/09/19 at 04:29; Status DC Ringer's Solution 500 ml @ 500 mls/hr 1X ONCE IV Last administered on 05/09/19at 10:14; Start 05/09/19 at 08:15; Stop 05/09/19 at 09:14; Status DC Info (Tpn Per Pharmacy) 1 each PRN DAILY PRN MC SEE COMMENTS Last administered on 05/15/19at 13:04; Start 05/09/19 at 13:00; Stop 05/16/19 at 08:33; Status DC Sodium Acetate 90 meq/Potassium Chloride 50 meq/ Potassium Phosphate 13.6 mmol/Magnesium Sulfate 8 meq/ Calcium Gluconate 10 meq/ Multivitamins 10 ml/Chromium/ Copper/Manganese/ Seleni/Zn 1 ml/ Total Parenteral Nutrition/Amino Acids/Dextrose/ Fat Emulsion Intravenous 1,512 ml @ 63 mls/hr TPN CONT IV Last administered on 05/09/19at 21:00; Start 05/09/19 at 22:00; Stop 05/10/19 at 21:59; Status DC Info (Tpn Per Pharmacy) 1 each PRN DAILY PRN MC SEE COMMENTS; Start 05/09/19 at 14:30; Status UNV Pantoprazole Sodium (PROTONIX VIAL for IV PUSH) 40 mg [id number] IVP Last administered on 05/17/19at 06:06; Start 05/09/19 at 18:00; Stop 05/17/19 at 14:22; Status DC Albumin Human 500 ml @ 125 mls/hr 1X ONCE IV Last administered on 05/09/19at 17:33; Start 05/09/19 at 17:30; Stop 05/09/19 at 21:29; Status DC Diphenhydramine HCl (Benadryl) 12.5 mg PRN Q6HRS PRN IVP ITCHING Last administered on 05/18/19at 03:20; Start 05/09/19 at 18:30 Acetaminophen (Tylenol Supp) 650 mg PRN Q8HRS PRN [place] MILD PAIN / TEMP; Start 05/09/19 at 18:30 Potassium Phosphate 13.6 mmol/Dextrose 104.5333 ml @ 52.267 m... Q2H IV Last administered on 05/10/19at 11:28; Start 05/10/19 at 09:00; Stop 05/10/19 at 12:59; Status DC Sodium Acetate 90 meq/Potassium Chloride 50 meq/ Potassium Phosphate 18 mmol/ Magnesium Sulfate 10 meq/Calcium Gluconate 10 meq/ Multivitamins 10 ml/Chromium/ Copper/Manganese/ Seleni/Zn 1 ml/ Total Parenteral Nutrition/Amino Acids/Dextrose/ Fat Emulsion Intravenous 1,512 ml @ 63 mls/hr TPN CONT IV Last administered on 05/10/19at 21:32; Start 05/10/19 at 22:00; Stop 05/11/19 at 21:59; Status DC Potassium Phosphate 13.6 mmol/Dextrose 104.5333 ml @ 52.267 m... Q2H IV Last administered on 05/11/19at 11:37; Start 05/11/19 at 11:30; Stop 05/11/19 at 13:29; Status DC Sodium Acetate 90 meq/Potassium Chloride 50 meq/ Potassium Phosphate 24 mmol/ Magnesium Sulfate 15 meq/Calcium Gluconate 10 meq/ Multivitamins 10 ml/Chromium/ Copper/Manganese/ Seleni/Zn 1 ml/ Total Parenteral Nutrition/Amino Acids/Dextrose/ Fat Emulsion Intravenous 1,512 ml @ 63 mls/hr TPN CONT IV Last administered on 05/11/19at 22:40; Start 05/11/19 at 22:00; Stop 05/12/19 at 21:59; Status DC Insulin Human Lispro (HumaLOG) 0-5 UNITS TIDWMEALS SQ Last administered on 05/17/19at 08:42; Start 05/11/19 at 12:00 Dextrose (Dextrose 50%-Water Syringe) 12.5 gm PRN Q15MIN PRN IV SEE COMMENTS; Start 05/11/19 at 11:30; Stop 05/16/19 at 08:33; Status DC Dextrose 250 ml PRN Q15MIN PRN IV SEE COMMENTS; Start 05/11/19 at 11:30 Sodium Acetate 90 meq/Potassium Chloride 50 meq/ Potassium Phosphate 24 mmol/ Magnesium Sulfate 18 meq/Calcium Gluconate 10 meq/ Multivitamins 10 ml/Chromium/ Copper/Manganese/ Seleni/Zn 1 ml/ Insulin Human Regular 7 unit/ Total Parenteral Nutrition/Amino Acids/Dextrose/ Fat Emulsion Intravenous 1,512 ml @ 63 mls/hr TPN CONT IV Last administered on 05/12/19at 22:28; Start 05/12/19 at 22:00; Stop 05/13/19 at 21:59; Status DC Naloxone HCl (Narcan) 0.4 mg PRN Q2MIN PRN IV SEE INSTRUCTIONS; Start 05/13/19 at 09:15; Status UNV Sodium Chloride 1,000 ml @ 25 mls/hr Q24H IV ; Start 05/13/19 at 09:06; Status UNV Hydromorphone HCl 30 ml @ 0 mls/hr CONT PRN PRN IV PER PROTOCOL Last administered on 05/15/19at 16:42; Start 05/13/19 at 09:30; Stop 05/16/19 at 08:33; Status DC Sodium Acetate 90 meq/Potassium Chloride 30 meq/ Potassium Phosphate 24 mmol/ Magnesium Sulfate 18 meq/Calcium Gluconate 10 meq/ Multivitamins 10 ml/Chromium/ Copper/Manganese/ Seleni/Zn 1 ml/ Insulin Human Regular 7 unit/ Total Parenteral Nutrition/Amino Acids/Dextrose/ Fat Emulsion Intravenous 1,512 ml @ 63 mls/hr TPN CONT IV Last administered on 05/13/19at 22:07; Start 05/13/19 at 22:00; Stop 05/14/19 at 21:59; Status DC Hydromorphone HCl (Dilaudid Standard CONSTRUCTION ECONOMIST) 12 mg STK-MED ONCE IV ; Start 05/13/19 at 09:47; Stop 05/14/19 at 08:59; Status DC Sodium Acetate 90 meq/Potassium Chloride 30 meq/ Potassium Phosphate 24 mmol/ Magnesium Sulfate 18 meq/Calcium Gluconate 10 meq/ Multivitamins 10 ml/Chromium/ Copper/Manganese/ Seleni/Zn 1 ml/ Insulin Human Regular 7 unit/ Total Parenteral Nutrition/Amino Acids/Dextrose/ Fat Emulsion Intravenous 1,512 ml @ 63 mls/hr TPN CONT IV Last administered on 05/14/19at 22:18; Start 05/14/19 at 22:00; Stop 05/15/19 at 21:59; Status DC Hydromorphone HCl (Dilaudid Standard CONSTRUCTION ECONOMIST) 12 mg STK-MED ONCE IV ; Start 05/14/19 at 13:41; Stop 05/15/19 at 10:40; Status DC Sodium Acetate 90 meq/Potassium Chloride 30 meq/ Potassium Phosphate 24 mmol/ Magnesium Sulfate 18 meq/Calcium Gluconate 10 meq/ Multivitamins 10 ml/Chromium/ Copper/Manganese/ Seleni/Zn 1 ml/ Insulin Human Regular 7 unit/ Total Parenteral Nutrition/Amino Acids/Dextrose/ Fat Emulsion Intravenous 1,512 ml @ 63 mls/hr TPN CONT IV Last administered on 05/15/19at 22:07; Start 05/15/19 at 22:00; Stop 05/16/19 at 21:59; Status DC Hydromorphone HCl (Dilaudid Standard CONSTRUCTION ECONOMIST) 12 mg STK-MED ONCE IV ; Start 05/15/19 at 16:18; Stop 05/16/19 at 11:57; Status DC Sodium Acetate 90 meq/Potassium Chloride 30 meq/ Potassium Phosphate 24 mmol/ Magnesium Sulfate 18 meq/Calcium Gluconate 10 meq/ Multivitamins 10 ml/Chromium/ Copper/Manganese/ Seleni/Zn 1 ml/ Insulin Human Regular 12 unit/ Total Parenteral Nutrition/Amino Acids/Dextrose/ Fat Emulsion Intravenous 1,512 ml @ 63 mls/hr TPN CONT IV ; Start 05/16/19 at 22:00; Stop 05/16/19 at 14:11; Status DC Acetaminophen/ Hydrocodone Bitart (Lortab 10/325) 1 tab PRN Q4HRS PRN PO MODERATE PAIN, SEVERE PAIN Last administered on 05/18/19at 10:20; Start 05/16/19 at 16:30 Hydromorphone HCl (Dilaudid) 1 mg PRN Q4HRS PRN IV SEVERE PAIN 7-10; Start 05/16/19 at 16:30; Stop 05/16/19 at 16:23; Status DC Hydromorphone HCl (Dilaudid) 0.1 mg PRN Q4HRS PRN IVP PAIN Last administered on 05/17/19at 20:00; Start 05/16/19 at 16:30 Pantoprazole Sodium (Protonix) 40 mg [id number] PO Last administered on 05/18/19at 05:22; Start 05/17/19 at 18:00 Active Scripts Active Zoloft (Sertraline Hcl) 50 Mg Tablet 50 Mg PO DAILY [Polyethylene Glycol 3350] 17 GM Packet 17 Gm PO DAILY [Oxycodone Hcl/Acetaminophen] 1 TAB Tablet 1 Tab PO PRN Q4HRS PRN Neurontin (Gabapentin) 300 Mg Capsule 300 Mg PO TID [Amoxicillin/Potassium Clav] 1 TAB Tablet 1 Tab PO BID [Amitriptyline Hcl] 50 MG Tablet 50 Mg PO QHS Lipitor (Atorvastatin Calcium) 10 Mg Tablet 10 Mg PO QHS Vitals/I & O Vital Sign - Last 24 Hours 05/17/19 05/17/19 05/17/19 05/17/19 11:00 11:09 13:22 14:23 Temp 98.1 98.1 Pulse 79 Resp 18 B/P (MAP) 115/60 (78) Pulse Ox 96 O2 Delivery Room Air Room Air Room Air Room Air 05/17/19 05/17/19 05/17/19 05/17/19 14:24 15:00 15:13 16:56 Temp 98.4 98.4 Pulse 70 Resp 18 B/P (MAP) 117/69 (85) Pulse Ox 96 O2 Delivery Room Air Room Air Room Air Room Air 05/17/19 05/17/19 05/17/19 05/17/19 18:11 18:11 19:45 20:00 Temp 99.2 99.2 Pulse 91 Resp 18 B/P (MAP) 122/67 (85) Pulse Ox 97 O2 Delivery Room Air Room Air Room Air Nasal Cannula O2 Flow Rate 2.0 05/17/19 05/17/19 05/18/19 05/18/19 20:00 20:00 00:00 01:55 Temp 98.7 98.7 Pulse 88 Resp 20 20 18 20 B/P (MAP) 120/64 (82) Pulse Ox 96 96 98 98 O2 Delivery Room Air Room Air Room Air Room Air 05/18/19 05/18/19 05/18/19 05/18/19 01:55 01:56 03:00 07:00 Temp 98.6 97.9 98.6 97.9 Pulse 87 93 Resp 20 20 18 18 B/P (MAP) 121/66 (84) 124/68 (86) Pulse Ox 98 98 98 98 O2 Delivery Nasal Cannula Room Air Room Air Room Air O2 Flow Rate 2.0 05/18/19 05/18/19 05/18/19 05/18/19 07:50 08:44 10:04 10:20 O2 Delivery Room Air Room Air Room Air Room Air Intake and Output 05/17/19 05/17/19 05/18/19 14:59 22:59 06:59 Intake Total 480 ml Output Total 400 ml 80 ml 60 ml Balance -400 ml -80 ml 420 ml MOSHE LINK MD May 18, 2019 11:00
[2019-05-18] MEDS: CHOLESTYRAMINE/ASPARTAME 4 GM PACKET PO SCH ×2 (11:12→22:00)
[2019-05-18] MEDS ORDERED: POTASSIUM BICARB 20 MEQ EFFERVESCENT TABLET. PO ONE (13:00)
--- NOTE | 2019-05-18 14:00 | PDOC ---
PROGRESS NOTES Subjective Subjective HPI - f/u of T3 N1 M0, stage IIB cholangiocarcinoma, status post Whipple surgery on 05/08/2019 ROS - abd pain well controlled Objective Objective Vital Signs Date Time Temp Pulse Resp B/P (MAP) Pulse Ox O2 Delivery O2 Flow Rate FiO2 05/18/19 13:27 Room Air 05/18/19 07:00 97.9 93 18 124/68 (86) 98 97.9 05/18/19 01:55 2.0 Intake and Output 05/18/19 07:00 Intake Total 480 ml Output Total 540 ml Balance -60 ml Intake Oral 480 ml Gastric Drainage Total 420 ml Drainage Total 120 ml # Voids 3 Physical Exam Heart: Normal S1, Normal S2 General: Alert, Oriented X3, No acute distress Lungs: Clear to auscultation Neuro: Normal speech Psych/Mental Status: Mental status NL Assessment Assessment Problems Medical Problems: (1) Acute hepatitis Status: Acute (2) Epigastric pain Status: Acute (3) Generalized pruritus Status: Acute (4) Obstructive jaundice Status: Acute IMPRESSION AND PLAN: 1. T3 N1 M0, stage IIB cholangiocarcinoma, status post Whipple surgery on 05/08/2019. I discussed the diagnosis, staging and adjuvant chemotherapy options with the patient and her granddaughter. I would recommend to continue current postoperative care and followup with me in about 2-3 weeks to discuss adjuvant chemotherapy options. I would recommend adjuvant chemotherapy with Gemzar based regimen. 2. Anemia postoperatively. Preop hemoglobin was normal. Hemoglobin is 8.4 on 05/14/2019. Continue to monitor. Hb stable at 8.4 on 05/17/19. No bleed. Comment Review of Relevant I have reviewed the following items betty (where applicable) has been applied. Labs Laboratory Tests Test 05/16/19 15:27 05/16/19 20:44 05/17/19 05:05 05/17/19 07:19 Glucose (Fingerstick) 278 mg/dL (70-99) 331 mg/dL (70-99) 164 mg/dL (70-99) White Blood Count 9.1 x10^3/uL (4.0-11.0) Red Blood Count 2.71 x10^6/uL (3.50-5.40) Hemoglobin 8.4 g/dL (12.0-15.5) Hematocrit 25.0 % (36.0-47.0) Mean Corpuscular Volume 92 fL (79-100) Mean Corpuscular Hemoglobin 31 pg (25-35) Mean Corpuscular Hemoglobin Concent 34 g/dL (31-37) Red Cell Distribution Width 16.0 % (11.5-14.5) Platelet Count 527 x10^3/uL (140-400) Neutrophils (%) (Auto) 70 % (31-73) Lymphocytes (%) (Auto) 17 % (24-48) Monocytes (%) (Auto) 9 % (0-9) Eosinophils (%) (Auto) 2 % (0-3) Basophils (%) (Auto) 1 % (0-3) Neutrophils # (Auto) 6.4 x10^3/uL (1.8-7.7) Lymphocytes # (Auto) 1.6 x10^3/uL (1.0-4.8) Monocytes # (Auto) 0.9 x10^3/uL (0.0-1.1) Eosinophils # (Auto) 0.2 x10^3/uL (0.0-0.7) Basophils # (Auto) 0.0 x10^3/uL (0.0-0.2) Sodium Level 140 mmol/L (136-145) Potassium Level 4.0 mmol/L (3.5-5.1) Chloride Level 103 mmol/L (98-107) Carbon Dioxide Level 30 mmol/L (21-32) Anion Gap 7 (6-14) Blood Urea Nitrogen 17 mg/dL (7-20) Creatinine 1.0 mg/dL (0.6-1.0) Estimated GFR (Cockcroft-Gault) 53.2 Glucose Level 186 mg/dL (70-99) Calcium Level 8.5 mg/dL (8.5-10.1) Total Bilirubin 0.8 mg/dL (0.2-1.0) Direct Bilirubin 0.7 mg/dL (0.0-0.2) Aspartate Amino Transf (AST/SGOT) 28 U/L (15-37) Alanine Aminotransferase (ALT/SGPT) 44 U/L (14-59) Alkaline Phosphatase 129 U/L (46-116) Total Protein 5.8 g/dL (6.4-8.2) Albumin 2.0 g/dL (3.4-5.0) Test 05/17/19 11:41 05/17/19 17:00 05/18/19 05:45 05/18/19 07:43 Glucose (Fingerstick) 115 mg/dL (70-99) 113 mg/dL (70-99) 131 mg/dL (70-99) Sodium Level 139 mmol/L (136-145) Potassium Level 3.6 mmol/L (3.5-5.1) Chloride Level 104 mmol/L (98-107) Carbon Dioxide Level 25 mmol/L (21-32) Anion Gap 10 (6-14) Blood Urea Nitrogen 15 mg/dL (7-20) Creatinine 1.1 mg/dL (0.6-1.0) Estimated GFR (Cockcroft-Gault) 47.7 Glucose Level 150 mg/dL (70-99) Calcium Level 8.4 mg/dL (8.5-10.1) Laboratory Tests Test 05/17/19 17:00 05/18/19 05:45 05/18/19 07:43 Glucose (Fingerstick) 113 mg/dL (70-99) 131 mg/dL (70-99) Sodium Level 139 mmol/L (136-145) Potassium Level 3.6 mmol/L (3.5-5.1) Chloride Level 104 mmol/L (98-107) Carbon Dioxide Level 25 mmol/L (21-32) Anion Gap 10 (6-14) Blood Urea Nitrogen 15 mg/dL (7-20) Creatinine 1.1 mg/dL (0.6-1.0) Estimated GFR (Cockcroft-Gault) 47.7 Glucose Level 150 mg/dL (70-99) Calcium Level 8.4 mg/dL (8.5-10.1) Microbiology 04/26/19 Urine Culture - Final, Complete 04/26/19 Urine Culture Result 1 (QUEENIE) - Final, Complete Medications Current Medications Iohexol (Omnipaque 300 Mg/ml) 60 ml 1X ONCE IV Last administered on 04/26/19at 12:06; Start 04/26/19 at 12:30; Stop 04/26/19 at 12:31; Status DC Info (CONTRAST GIVEN -- Rx MONITORING) 1 each PRN DAILY PRN MC SEE COMMENTS; Start 04/26/19 at 12:00; Stop 04/28/19 at 11:59; Status DC Ondansetron HCl (Zofran) 4 mg PRN Q6HRS PRN IV NAUSEA/VOMITING Last administered on 04/29/19 01:04; Start 04/26/19 at 12:30; Stop 04/29/19 at 04:56; Status DC Cholestyramine Resin (Questran Light) 4 gm BID@1000,2200 PO Last administered on 05/18/19 11:13; Start 04/26/19 at 22:00 Hydroxyzine HCl (Atarax) 25 mg PRN Q6HRS PRN PO ITCHING Last administered on 05/06/19 21:03; Start 04/26/19 at 12:30 Morphine Sulfate (Morphine Sulfate) 2 mg PRN Q6HRS PRN IV SEVERE PAIN 7-10; Start 04/26/19 at 12:30; Stop 04/26/19 at 12:42; Status DC Acetaminophen/ Hydrocodone Bitart (Lortab 5/325) 1 tab PRN Q6HRS PRN PO MILD PAIN / TEMP; Start 04/26/19 at 12:30; Stop 04/26/19 at 12:42; Status DC Gabapentin (Neurontin) 300 mg TID PO Last administered on 05/18/19 13:27; Start 04/26/19 at 14:00 Lorazepam (Ativan) 0.5 mg PRN BID PRN PO AGITATION Last administered on 05/16/19 15:50; Start 04/26/19 at 12:30 Sertraline HCl (Zoloft) 50 mg DAILY PO Last administered on 05/18/19 08:44; Start 04/27/19 at 09:00 Tramadol HCl (Ultram) 50 mg TID PO Last administered on 04/29/19 09:09; Start 04/26/19 at 14:00; Stop 04/29/19 at 10:09; Status DC Acetaminophen (Tylenol) 325 mg PRN Q6HRS PRN PO MILD PAIN / TEMP; Start 04/26/19 at 12:30 Polyethylene Glycol (miraLAX PACKET) 17 gm DAILY PO Last administered on 05/18/19 08:44; Start 04/27/19 at 09:00 Magnesium Hydroxide (Milk Of Magnesia) 2,400 mg PRN DAILY PRN PO CONSTIPATION Last administered on 04/29/19 02:34; Start 04/26/19 at 12:30 Acetaminophen/ Hydrocodone Bitart (Lortab 5/325) 1 tab PRN Q4HRS PRN PO MODERATE PAIN Last administered on 05/16/19at 14:39; Start 04/26/19 at 12:45; Stop 05/16/19 at 16:22; Status DC Morphine Sulfate (Morphine Sulfate) 1 mg PRN Q4HRS PRN IV SEVERE PAIN 7-10 Last administered on 04/29/19at 01:11; Start 04/26/19 at 12:45; Stop 04/29/19 at 04:56; Status DC Levofloxacin/ Dextrose 100 ml @ 100 mls/hr 1X ONCE IV Last administered on 04/28/19at 08:31; Start 04/28/19 at 07:15; Stop 04/28/19 at 08:14; Status DC Ringer's Solution 1,000 ml @ 75 mls/hr 1X ONCE IV Last administered on 04/28/19at 14:43; Start 04/28/19 at 12:15; Stop 04/29/19 at 01:34; Status DC Iohexol (Omnipaque 300 Mg/ml) 100 ml STK-MED ONCE .ROUTE ; Start 04/28/19 at 13:24; Stop 04/28/19 at 13:25; Status DC Famotidine (Pepcid Vial) 20 mg STK-MED ONCE .ROUTE ; Start 04/28/19 at 14:12; Stop 04/28/19 at 14:13; Status DC Dexamethasone Sodium Phosphate (Decadron) 20 mg STK-MED ONCE .ROUTE ; Start 04/28/19 at 14:13; Stop 04/28/19 at 14:14; Status DC Lidocaine HCl (Lidocaine Pf 2% Vial) 5 ml STK-MED ONCE .ROUTE ; Start 04/28/19 at 15:00; Stop 04/28/19 at 15:01; Status DC Iohexol (Omnipaque 300 Mg/ml) 100 ml STK-MED ONCE IV Last administered on 04/28/19at 16:20; Start 04/28/19 at 16:20; Stop 04/28/19 at 16:48; Status DC Fentanyl Citrate (Fentanyl 2ml Vial) 25 mcg 1X ONCE IV Last administered on 04/28/19 17:05; Start 04/28/19 at 17:00; Stop 04/28/19 at 17:01; Status DC Morphine Sulfate (Morphine Sulfate) 2 mg PRN Q4HRS PRN IV SEVERE PAIN 7-10; Start 04/29/19 at 05:00; Stop 05/08/19 at 08:25; Status DC Ondansetron HCl (Zofran) 8 mg PRN Q6HRS PRN IV NAUSEA/VOMITING, 1ST CHOICE Last administered on 05/03/19 22:23; Start 04/29/19 at 05:00; Stop 05/12/19 at 14:03; Status DC Prochlorperazine Maleate (Compazine) 10 mg PRN Q6HRS PRN PO NAUSEA/VOMITING Last administered on 05/17/19at 20:00; Start 04/29/19 at 05:00 Tramadol HCl (Ultram) 50 mg QID PO Last administered on 05/18/19 13:27; Start 04/29/19 at 13:00 Potassium Chloride/Dextrose/ Sod Cl 1,000 ml @ 75 mls/hr [id number] IV Last administered on 04/30/19 02:53; Start 04/29/19 at 10:15; Stop 04/30/19 at 10:45; Status DC Amitriptyline HCl (Elavil) 25 mg QHS PO Last administered on 05/17/19 20:00; Start 04/29/19 at 21:00 Phenylephrine HCl (PHENYLEPHRINE in 0.9% NACL PF) 1 mg STK-MED ONCE IV ; Start 04/28/19 at 14:00; Stop 04/29/19 at 13:10; Status DC Succinylcholine Chloride (Anectine) 200 mg STK-MED ONCE .ROUTE ; Start 04/28/19 at 14:00; Stop 04/29/19 at 13:10; Status DC Propofol (Diprivan) 200 mg STK-MED ONCE IV ; Start 04/28/19 at 14:00; Stop 04/29/19 at 13:10; Status DC Amino Acids/ Glycerin/ Electrolytes 1,000 ml @ 80 mls/hr [id number] IV Last administered on 05/09/19 08:22; Start 04/30/19 at 10:45; Stop 05/09/19 at 21:59; Status DC Amlodipine Besylate (Norvasc) 5 mg DAILY PO Last administered on 05/05/19at 08:41; Start 05/01/19 at 13:00; Stop 05/05/19 at 10:06; Status DC Hydralazine HCl (Apresoline Inj) 10 mg PRN Q4HRS PRN IVP ELEVATED BP, SEE COMMENTS; Start 05/01/19 at 12:45 Amlodipine Besylate (Norvasc) 2.5 mg DAILY PO Last administered on 05/06/19at 09:28; Start 05/05/19 at 10:30; Stop 05/06/19 at 10:03; Status DC Cefoxitin Sodium (Mefoxin) 2 gm 1X PREOP IVP ; Start 05/08/19 at 08:00; Stop 05/08/19 at 10:15; Status DC Ondansetron HCl (Zofran) 4 mg PRN Q6HRS PRN IV NAUSEA/VOMITING; Start 05/08/19 at 07:00; Stop 05/08/19 at 20:00; Status DC Fentanyl Citrate (Fentanyl 2ml Vial) 25 mcg PRN Q5MIN PRN IV MILD PAIN 1-3 Last administered on 05/08/19at 15:37; Start 05/08/19 at 07:00; Stop 05/08/19 at 20:00; Status DC Fentanyl Citrate (Fentanyl 2ml Vial) 50 mcg PRN Q5MIN PRN IV MODERATE TO SEVERE PAIN; Start 05/08/19 at 07:00; Stop 05/08/19 at 20:00; Status DC Morphine Sulfate (Morphine Sulfate) 1 mg PRN Q10MIN PRN IV SEVERE PAIN 7-10; Start 05/08/19 at 07:00; Stop 05/08/19 at 20:00; Status DC Ringer's Solution 1,000 ml @ 30 mls/hr Q24H IV Last administered on 05/08/19at 07:28; Start 05/08/19 at 07:00; Stop 05/08/19 at 18:59; Status DC Hydromorphone HCl (Dilaudid) 0.5 mg PRN Q10MIN PRN IV SEV PAIN, Second choice; Start 05/08/19 at 07:00; Stop 05/08/19 at 20:00; Status DC Prochlorperazine Edisylate (Compazine) 5 mg PACU PRN PRN IV NAUSEA, MRX1 Last administered on 05/08/19at 15:37; Start 05/08/19 at 07:00; Stop 05/08/19 at 20:00; Status DC Fentanyl Citrate (Fentanyl 2ml Vial) 100 mcg STK-MED ONCE .ROUTE ; Start 05/08/19 at 07:06; Stop 05/08/19 at 07:07; Status DC Glycopyrrolate (Robinul) 1 mg STK-MED ONCE .ROUTE ; Start 05/08/19 at 07:07; Stop 05/08/19 at 07:07; Status DC Rocuronium [place] (Zemuron) 100 mg STK-MED ONCE .ROUTE ; Start 05/08/19 at 07:08; Stop 05/08/19 at 07:08; Status DC Neostigmine Methylsulfate (Neostigmine Methylsulfate) 5 mg STK-MED ONCE .ROUTE ; Start 05/08/19 at 07:08; Stop 05/08/19 at 07:08; Status DC Propofol 20 ml @ As Directed STK-MED ONCE IV ; Start 05/08/19 at 07:09; Stop 05/08/19 at 07:09; Status DC Lidocaine HCl (Lidocaine Pf 2% Vial) 5 ml STK-MED ONCE .ROUTE ; Start 05/08/19 at 07:09; Stop 05/08/19 at 07:09; Status DC Ondansetron HCl (Zofran) 4 mg STK-MED ONCE .ROUTE ; Start 05/08/19 at 07:09; Stop 05/08/19 at 07:09; Status DC Dexamethasone Sodium Phosphate (Decadron) 4 mg STK-MED ONCE .ROUTE ; Start at 07:09; Stop 05/08/19 at 07:09; Status DC Phenylephrine HCl (Ricco-Synephrine Inj) 10 mg STK-MED ONCE .ROUTE ; Start at 07:12; Stop 05/08/19 at 07:12; Status DC Sodium Chloride 39.95 ml/ Hydromorphone HCl 0.5 mg/ Ropivacaine 10 ml/ Epidural Dosage Infused (Pha) 50 ml @ 8 mls/hr CONT PRN EPID PER PROTOCOL Last administered on 05/13/19at 03:29; Start 05/08/19 at 09:00; Stop 05/16/19 at 08:33; Status DC Fentanyl Citrate (Fentanyl 2ml Vial) 100 mcg STK-MED ONCE .ROUTE ; Start 05/08/19 at 08:25; Stop 05/08/19 at 08:25; Status DC Ephedrine Sulfate (ePHEDrine PF IN SALINE SYRINGE) 50 mg STK-MED ONCE IV ; Start 05/08/19 at 08:37; Stop 05/08/19 at 08:37; Status DC Cefoxitin Sodium (Mefoxin) 2 gm 1X PREOP IVP ; Start 05/08/19 at 10:15; Stop 05/12/19 at 12:54; Status DC Cefoxitin Sodium (Mefoxin) 2 gm 1X ONCE IVP Last administered on 05/08/19at 12:31; Start 05/08/19 at 12:30; Stop 05/08/19 at 12:31; Status DC Cefoxitin Sodium (Mefoxin) 1 gm STK-MED ONCE IVP ; Start 05/08/19 at 13:51; Stop 05/08/19 at 13:52; Status DC Famotidine (Pepcid Vial) 20 mg DAILY IVP Last administered on 05/09/19at 08:22; Start 05/08/19 at 21:00; Stop 05/09/19 at 16:20; Status DC Heparin Sodium (Porcine) (Heparin Sodium) 5,000 unit Q12HR SQ Last administered on 05/18/19at 08:44; Start 05/08/19 at 14:30 Sodium Chloride (Normal Saline Flush) 3 ml QSHIFT PRN IV AFTER MEDS AND BLOOD DRAWS; Start 05/08/19 at 14:30 Ringer's Solution 1,000 ml @ 100 mls/hr Q10H IV Last administered on 05/09/19at 18:58; Start 05/08/19 at 14:18; Stop 05/09/19 at 19:29; Status DC Naloxone HCl (Narcan) 0.4 mg PRN Q2MIN PRN IV SEE INSTRUCTIONS; Start 05/08/19 at 14:30 Sodium Chloride 1,000 ml @ 25 mls/hr Q24H IV Last administered on 05/15/19at 13:29; Start 05/08/19 at 14:18; Stop 05/16/19 at 08:33; Status DC Ondansetron HCl (Zofran) 4 mg PRN Q6HRS PRN IV NAUESA, 1ST CHOICE Last administered on 05/18/19at 08:44; Start 05/08/19 at 14:30 Fentanyl Citrate (Fentanyl 2ml Vial) 100 mcg STK-MED ONCE .ROUTE ; Start 05/08/19 at 14:29; Stop 05/08/19 at 14:29; Status DC Sevoflurane (Ultane) 90 ml STK-MED ONCE IH ; Start 05/08/19 at 14:44; Stop 05/08/19 at 14:44; Status DC Norepinephrine Bitartrate 250 ml @ 13.438 mls/ hr CONT PRN IV SEE I/O RECORD Last administered on 05/09/19at 23:49; Start 05/08/19 at 18:45; Stop 05/12/19 at 14:03; Status DC Ringer's Solution 500 ml @ 500 mls/hr 1X ONCE IV Last administered on 05/08/19at 19:22; Start 05/08/19 at 18:45; Stop 05/08/19 at 19:44; Status DC Ringer's Solution 500 ml @ 500 mls/hr 1X ONCE IV Last administered on 05/09/19at 03:39; Start 05/09/19 at 03:30; Stop 05/09/19 at 04:29; Status DC Ringer's Solution 500 ml @ 500 mls/hr 1X ONCE IV Last administered on 05/09/19at 10:14; Start 05/09/19 at 08:15; Stop 05/09/19 at 09:14; Status DC Info (Tpn Per Pharmacy) 1 each PRN DAILY PRN MC SEE COMMENTS Last administered on 05/15/19at 13:04; Start 05/09/19 at 13:00; Stop 05/16/19 at 08:33; Status DC Sodium Acetate 90 meq/Potassium Chloride 50 meq/ Potassium Phosphate 13.6 mmol/Magnesium Sulfate 8 meq/ Calcium Gluconate 10 meq/ Multivitamins 10 ml/Chromium/ Copper/Manganese/ Seleni/Zn 1 ml/ Total Parenteral Nutrition/Amino Acids/Dextrose/ Fat Emulsion Intravenous 1,512 ml @ 63 mls/hr TPN CONT IV Last administered on 05/09/19at 21:00; Start 05/09/19 at 22:00; Stop 05/10/19 at 21:59; Status DC Info (Tpn Per Pharmacy) 1 each PRN DAILY PRN MC SEE COMMENTS; Start 05/09/19 at 14:30; Status UNV Pantoprazole Sodium (PROTONIX VIAL for IV PUSH) 40 mg [id number] IVP Last administered on 05/17/19at 06:06; Start 05/09/19 at 18:00; Stop 05/17/19 at 14:22; Status DC Albumin Human 500 ml @ 125 mls/hr 1X ONCE IV Last administered on 05/09/19at 17:33; Start 05/09/19 at 17:30; Stop 05/09/19 at 21:29; Status DC Diphenhydramine HCl (Benadryl) 12.5 mg PRN Q6HRS PRN IVP ITCHING Last admin istered on 05/18/19at 03:20; Start 05/09/19 at 18:30 Acetaminophen (Tylenol Supp) 650 mg PRN Q8HRS PRN AL MILD PAIN / TEMP; Start 05/09/19 at 18:30 Potassium Phosphate 13.6 mmol/Dextrose 104.5333 ml @ 52.267 m... Q2H IV Last administered on 05/10/19at 11:28; Start 05/10/19 at 09:00; Stop 05/10/19 at 12:59; Status DC Sodium Acetate 90 meq/Potassium Chloride 50 meq/ Potassium Phosphate 18 mmol/ Magnesium Sulfate 10 meq/Calcium Gluconate 10 meq/ Multivitamins 10 ml/Chromium/ Copper/Manganese/ Seleni/Zn 1 ml/ Total Parenteral Nutrition/Amino Acids/Dextrose/ Fat Emulsion Intravenous 1,512 ml @ 63 mls/hr TPN CONT IV Last administered on 05/10/19at 21:32; Start 05/10/19 at 22:00; Stop 05/11/19 at 21:59; Status DC Potassium Phosphate 13.6 mmol/Dextrose 104.5333 ml @ 52.267 m... Q2H IV Last administered on 05/11/19at 11:37; Start 05/11/19 at 11:30; Stop 05/11/19 at 13:29; Status DC Sodium Acetate 90 meq/Potassium Chloride 50 meq/ Potassium Phosphate 24 mmol/ Magnesium Sulfate 15 meq/Calcium Gluconate 10 meq/ Multivitamins 10 ml/Chromium/ Copper/Manganese/ Seleni/Zn 1 ml/ Total Parenteral Nutrition/Amino Acids/Dextrose/ Fat Emulsion Intravenous 1,512 ml @ 63 mls/hr TPN CONT IV Last administered on 05/11/19at 22:40; Start 05/11/19 at 22:00; Stop 05/12/19 at 21:59; Status DC Insulin Human Lispro (HumaLOG) 0-5 UNITS TIDWMEALS SQ Last administered on 05/17/19at 08:42; Start 05/11/19 at 12:00; Stop 05/18/19 at 12:33; Status DC Dextrose (Dextrose 50%-Water Syringe) 12.5 gm PRN Q15MIN PRN IV SEE COMMENTS; Start 05/11/19 at 11:30; Stop 05/16/19 at 08:33; Status DC Dextrose 250 ml PRN Q15MIN PRN IV SEE COMMENTS; Start 05/11/19 at 11:30; Stop 05/18/19 at 12:33; Status DC Sodium Acetate 90 meq/Potassium Chloride 50 meq/ Potassium Phosphate 24 mmol/ Magnesium Sulfate 18 meq/Calcium Gluconate 10 meq/ Multivitamins 10 ml/Chromium/ Copper/Manganese/ Seleni/Zn 1 ml/ Insulin Human Regular 7 unit/ Total Parenteral Nutrition/Amino Acids/Dextrose/ Fat Emulsion Intravenous 1,512 ml @ 63 mls/hr TPN CONT IV Last administered on 05/12/19at 22:28; Start 05/12/19 at 22:00; Stop 05/13/19 at 21:59; Status DC Naloxone HCl (Narcan) 0.4 mg PRN Q2MIN PRN IV SEE INSTRUCTIONS; Start 05/13/19 at 09:15; Status UNV Sodium Chloride 1,000 ml @ 25 mls/hr Q24H IV ; Start 05/13/19 at 09:06; Status UNV Hydromorphone HCl 30 ml @ 0 mls/hr CONT PRN PRN IV PER PROTOCOL Last administered on 05/15/19at 16:42; Start 05/13/19 at 09:30; Stop 05/16/19 at 08:33; Status DC Sodium Acetate 90 meq/Potassium Chloride 30 meq/ Potassium Phosphate 24 mmol/ Magnesium Sulfate 18 meq/Calcium Gluconate 10 meq/ Multivitamins 10 ml/Chromium/ Copper/Manganese/ Seleni/Zn 1 ml/ Insulin Human Regular 7 unit/ Total Parenteral Nutrition/Amino Acids/Dextrose/ Fat Emulsion Intravenous 1,512 ml @ 63 mls/hr TPN CONT IV Last administered on 05/13/19at 22:07; Start 05/13/19 at 22:00; Stop 05/14/19 at 21:59; Status DC Hydromorphone HCl (Dilaudid Standard CAPSULE FILLER) 12 mg STK-MED ONCE IV ; Start 05/13/19 at 09:47; Stop 05/14/19 at 08:59; Status DC Sodium Acetate 90 meq/Potassium Chloride 30 meq/ Potassium Phosphate 24 mmol/ Magnesium Sulfate 18 meq/Calcium Gluconate 10 meq/ Multivitamins 10 ml/Chromium/ Copper/Manganese/ Seleni/Zn 1 ml/ Insulin Human Regular 7 unit/ Total Parenteral Nutrition/Amino Acids/Dextrose/ Fat Emulsion Intravenous 1,512 ml @ 63 mls/hr TPN CONT IV Last administered on 05/14/19at 22:18; Start 05/14/19 at 22:00; Stop 05/15/19 at 21:59; Status DC Hydromorphone HCl (Dilaudid Standard CAPSULE FILLER) 12 mg STK-MED ONCE IV ; Start 05/14/19 at 13:41; Stop 05/15/19 at 10:40; Status DC Sodium Acetate 90 meq/Potassium Chloride 30 meq/ Potassium Phosphate 24 mmol/ Magnesium Sulfate 18 meq/Calcium Gluconate 10 meq/ Multivitamins 10 ml/Chromium/ Copper/Manganese/ Seleni/Zn 1 ml/ Insulin Human Regular 7 unit/ Total Parenteral Nutrition/Amino Acids/Dextrose/ Fat Emulsion Intravenous 1,512 ml @ 63 mls/hr TPN CONT IV Last administered on 05/15/19at 22:07; Start 05/15/19 at 22:00; Stop 05/16/19 at 21:59; Status DC Hydromorphone HCl (Dilaudid Standard CAPSULE FILLER) 12 mg STK-MED ONCE IV ; Start 05/15/19 at 16:18; Stop 05/16/19 at 11:57; Status DC Sodium Acetate 90 meq/Potassium Chloride 30 meq/ Potassium Phosphate 24 mmol/ Magnesium Sulfate 18 meq/Calcium Gluconate 10 meq/ Multivitamins 10 ml/Chromium/ Copper/Manganese/ Seleni/Zn 1 ml/ Insulin Human Regular 12 unit/ Total Parenteral Nutrition/Amino Acids/Dextrose/ Fat Emulsion Intravenous 1,512 ml @ 63 mls/hr TPN CONT IV ; Start 05/16/19 at 22:00; Stop 05/16/19 at 14:11; Status DC Acetaminophen/ Hydrocodone Bitart (Lortab 10/325) 1 tab PRN Q4HRS PRN PO MODERATE PAIN, SEVERE PAIN Last administered on 05/18/19at 10:20; Start 05/16/19 at 16:30 Hydromorphone HCl (Dilaudid) 1 mg PRN Q4HRS PRN IV SEVERE PAIN 7-10; Start 05/16/19 at 16:30; Stop 05/16/19 at 16:23; Status DC Hydromorphone HCl (Dilaudid) 0.1 mg PRN Q4HRS PRN IVP PAIN Last administered on 05/17/19at 20:00; Start 05/16/19 at 16:30 Pantoprazole Sodium (Protonix) 40 mg [id number] PO Last administered on 05/18/19at 05:22; Start 05/17/19 at 18:00 Potassium Bicarbonate (Potassium Effervescent Tablet) 10 meq 1X ONCE PO Last administered on 05/18/19at 13:27; Start 05/18/19 at 13:00; Stop 05/18/19 at 13:01; Status DC Active Scripts Active Zoloft (Sertraline Hcl) 50 Mg Tablet 50 Mg PO DAILY [Polyethylene Glycol 3350] 17 GM Packet 17 Gm PO DAILY [Oxycodone Hcl/Acetaminophen] 1 TAB Tablet 1 Tab PO PRN Q4HRS PRN Neurontin (Gabapentin) 300 Mg Capsule 300 Mg PO TID [Amoxicillin/Potassium Clav] 1 TAB Tablet 1 Tab PO BID [Amitriptyline Hcl] 50 MG Tablet 50 Mg PO QHS Lipitor (Atorvastatin Calcium) 10 Mg Tablet 10 Mg PO QHS Vitals/I & O Vital Sign - Last 24 Hours 05/17/19 05/17/19 05/17/19 05/17/19 14:23 14:24 15:00 15:13 Temp 98.4 98.4 Pulse 70 Resp 18 B/P (MAP) 117/69 (85) Pulse Ox 96 O2 Delivery Room Air Room Air Room Air Room Air 05/17/19 05/17/19 05/17/1924/19 16:56 18:11 18:11 19:45 Temp 99.2 99.2 Pulse 91 Resp 18 B/P (MAP) 122/67 (85) Pulse Ox 97 O2 Delivery Room Air Room Air Room Air Room Air 05/17/19 05/17/19 05/17/19 05/18/19 20:00 20:00 20:00 00:00 Temp 98.7 98.7 Pulse 88 Resp 20 20 18 B/P (MAP) 120/64 (82) Pulse Ox 96 96 98 O2 Delivery Nasal Cannula Room Air Room Air Room Air O2 Flow Rate 2.0 05/18/19 05/18/19 05/18/19 05/18/19 01:55 01:55 01:56 03:00 Temp 98.6 98.6 Pulse 87 Resp 20 18 B/P (MAP) 121/66 (84) Pulse Ox 98 98 98 98 O2 Delivery Room Air Nasal Cannula Room Air Room Air O2 Flow Rate 2.0 05/18/19 05/18/19 05/18/19 05/18/19 07:00 07:50 08:44 10:04 Temp 97.9 97.9 Pulse 93 Resp 18 B/P (MAP) 124/68 (86) Pulse Ox 98 O2 Delivery Room Air Room Air Room Air Room Air 05/18/19 05/18/19 05/18/19 10:20 11:23 13:27 O2 Delivery Room Air Room Air Room Air Intake and Output 05/17/19 05/17/19 05/18/19 15:00 23:00 07:00 Intake Total 480 ml Output Total 400 ml 80 ml 60 ml Balance -400 ml -80 ml 420 ml GILBERT LÓPEZ MD May 18, 2019 14:00
[2019-05-18] MEDS: HYDROmorphone 2 MG/ML VIAL IVP PRN (14:37)
[2019-05-18] MEDS: AMITRIPTYLINE HCL 25 MG TABLET. PO SCH (21:14)
[2019-05-19] MEDS: HYDROmorphone 2 MG/ML VIAL IVP PRN (00:42)
[2019-05-19] MEDS: PANTOPRAZOLE 40 MG TABLET.DR. PO SCH ×2 (05:48→18:20)
[2019-05-19 06:43] LABS: CREATININE 1.2 mg/dL (0.6-1.0); GFR 43.1; POTASSIUM 3.7 mmol/L (3.5-5.1)
[2019-05-19 07:00] VITALS: BP 117/72
[2019-05-19 07:40] LABS: BASO # 0.1 x10^3/uL (0.0-0.2); BASO % 1 % (0-3); EOS # 0.4 x10^3/uL (0.0-0.7); EOS % 4 % (0-3); HEMOGLOBIN 8.2 g/dL (12.0-15.5); LYMPH # 2.4 x10^3/uL (1.0-4.8); LYMPH % 21 % (24-48); MEAN CORPUSCULAR HEMOGLOBIN 30 pg (25-35); MEAN CORPUSCULAR HGB CONC 33 g/dL (31-37); MEAN CORPUSCULAR VOLUME 92 fL (79-100); MONO # 0.8 x10^3/uL (0.0-1.1); MONO % 7 % (0-9); NEUT # 7.5 x10^3/uL (1.8-7.7); NEUT % 67 % (31-73); PLATELET COUNT 632 x10^3/uL (140-400); RED BLOOD COUNT 2.71 x10^6/uL (3.50-5.40); RED CELL DISTRIBUTION WIDTH 16.1 % (11.5-14.5); WHITE BLOOD COUNT 11.2 x10^3/uL (4.0-11.0)
--- NOTE | 2019-05-19 08:36 | PDOC ---
PROGRESS NOTES Subjective Subjective feels ok Objective Objective Vital Signs Date Time Temp Pulse Resp B/P (MAP) Pulse Ox O2 Delivery O2 Flow Rate FiO2 05/19/19 03:00 18 05/19/19 02:51 94 Room Air 05/18/19 23:11 98.5 91 122/67 (85) 98.5 Intake and Output 05/19/19 06:59 Intake Total 480 ml Output Total 385 ml Balance 95 ml Intake Oral 480 ml Gastric Drainage Total 325 ml Drainage Total 60 ml # Voids 3 # Bowel Movements 1 Physical Exam Physical Exam epidural retirement plan counselor removed yesterday Abdomen: Soft (MIRIAM drains with serosang fluid) Heart: Normal S1, Normal S2 Extremities: No edema General: Alert, Oriented X3, No acute distress HEENT: Other (ng) Lungs: Clear to auscultation MUSCULOSKELETAL: No deformity, Osteoarthritic changes both hands Neck: Supple Neuro: Normal speech Psych/Mental Status: Mental status NL Skin: No rashes COMMENT central line present. Diagnosis Problem List Problems Medical Problems: (1) Acute hepatitis Status: Acute (2) Epigastric pain Status: Acute (3) Generalized pruritus Status: Acute (4) Obstructive jaundice Status: Acute Assessment Assessment Problems Medical Problems: (1) Acute hepatitis Status: Acute (2) Epigastric pain Status: Acute (3) Generalized pruritus Status: Acute (4) Obstructive jaundice Status: Acute Problems: Obstructive jaundice due to Pancreatic cancer, adeno ca. PLAN: Labs good spoke with surgery PT/OT/rehab advancing diet. SNU screen and transfer when bed available Procedure Performed:05/08/19 whipple procedure (specifically: pyloric sparing, pancreaticogastrostomy), G- tube placement Plan Plan of Care Problems Medical Problems: (1) Acute hepatitis Status: Acute (2) Epigastric pain Status: Acute (3) Generalized pruritus Status: Acute (4) Obstructive jaundice Status: Acute Comment Review of Relevant I have reviewed the following items betty (where applicable) has been applied. Labs Laboratory Tests Test 05/18/19 11:51 05/18/19 17:10 05/19/19 06:00 Glucose (Fingerstick) 125 mg/dL (70-99) 117 mg/dL (70-99) White Blood Count 11.2 x10^3/uL (4.0-11.0) Red Blood Count 2.71 x10^6/uL (3.50-5.40) Hemoglobin 8.2 g/dL (12.0-15.5) Hematocrit 25.0 % (36.0-47.0) Mean Corpuscular Volume 92 fL (79-100) Mean Corpuscular Hemoglobin 30 pg (25-35) Mean Corpuscular Hemoglobin Concent 33 g/dL (31-37) Red Cell Distribution Width 16.1 % (11.5-14.5) Platelet Count 632 x10^3/uL (140-400) Neutrophils (%) (Auto) 67 % (31-73) Lymphocytes (%) (Auto) 21 % (24-48) Monocytes (%) (Auto) 7 % (0-9) Eosinophils (%) (Auto) 4 % (0-3) Basophils (%) (Auto) 1 % (0-3) Neutrophils # (Auto) 7.5 x10^3/uL (1.8-7.7) Lymphocytes # (Auto) 2.4 x10^3/uL (1.0-4.8) Monocytes # (Auto) 0.8 x10^3/uL (0.0-1.1) Eosinophils # (Auto) 0.4 x10^3/uL (0.0-0.7) Basophils # (Auto) 0.1 x10^3/uL (0.0-0.2) Sodium Level 138 mmol/L (136-145) Potassium Level 3.7 mmol/L (3.5-5.1) Chloride Level 107 mmol/L (98-107) Carbon Dioxide Level 28 mmol/L (21-32) Anion Gap 3 (6-14) Blood Urea Nitrogen 17 mg/dL (7-20) Creatinine 1.2 mg/dL (0.6-1.0) Estimated GFR (Cockcroft-Gault) 43.1 Glucose Level 120 mg/dL (70-99) Calcium Level 8.0 mg/dL (8.5-10.1) Microbiology 04/26/19 Urine Culture - Final, Complete 04/26/19 Urine Culture Result 1 (QUEENIE) - Final, Complete Medications Current Medications Potassium Bicarbonate (Potassium Effervescent Tablet) 10 meq 1X ONCE PO Last administered on 05/18/19at 13:27; Start 05/18/19 at 13:00; Stop 05/18/19 at 13:01; Status DC Vitals/I & O Vital Sign - Last 24 Hours 05/18/19 05/18/19 05/18/19 05/18/19 08:44 10:04 10:20 11:00 Temp 97.3 97.3 Pulse 92 Resp 22 B/P (MAP) 143/84 (103) Pulse Ox 98 O2 Delivery Room Air Room Air Room Air Room Air 05/18/19 05/18/19 05/18/19 05/18/19 11:23 13:27 14:47 14:48 O2 Delivery Room Air Room Air Room Air Room Air 05/18/19 05/18/19 05/18/19 05/18/19 15:00 15:14 18:27 19:25 Temp 98.3 98.6 98.3 98.6 Pulse 88 94 Resp 20 20 18 B/P (MAP) 133/70 (91) 130/74 (92) Pulse Ox 91 97 O2 Delivery Room Air Room Air Room Air Room Air 05/18/19 05/18/19 05/18/19 05/19/19 20:00 21:15 23:11 00:42 Temp 98.5 98.5 Pulse 91 Resp 20 18 20 B/P (MAP) 122/67 (85) Pulse Ox 97 92 94 O2 Delivery Room Air Room Air Room Air Room Air 05/19/19 05/19/19 05/19/19 05/19/19 00:47 00:48 02:51 03:00 Resp 20 18 20 18 Pulse Ox 94 94 O2 Delivery Room Air Room Air Room Air Intake and Output 05/18/19 05/18/19 05/19/19 14:59 22:59 06:59 Intake Total 480 ml Output Total 385 ml Balance -385 ml 480 ml BONNY BEST MD May 19, 2019 08:36
[2019-05-19] MEDS ORDERED: CHOL4POW3 PO (08:46)
[2019-05-19] MEDS ORDERED: POLY17PO28 PO (08:46)
[2019-05-19] MEDS ORDERED: PROC5TAB14 PO (08:46)
[2019-05-19] MEDS ORDERED: PANT40TA77 PO (08:46)
[2019-05-19] MEDS ORDERED: HYDR-2769 PO (08:46)
[2019-05-19] MEDS ORDERED: HEPA50003 SQ (08:46)
--- NOTE | 2019-05-19 08:49 | SNU/HH DC ---
DISCHARGE ORDERS DISCHARGE INFORMATION: DISCHARGE DATE: May 19, 2019 FINAL DIAGNOSIS Problems Medical Problems: (1) Acute hepatitis Status: Acute (2) Epigastric pain Status: Acute (3) Generalized pruritus Status: Acute (4) Obstructive jaundice Status: Acute CONDITION ON DISCHARGE: Stable CODE STATUS: Code Status: Full LONG TERM: SNF STAY <30 DAYS: Yes POST DISCHARGE ORDERS: ACTIVITY ORDERS: Activity as tolerated WEIGHT BEARING STATUS: As tolerated DIET AFTER DISCHARGE: WOUND/INCISION CARE: Reinforce dressing PRN OTHER ORDERS: drains? CHECKS AFTER DISCHARGE: COMMENTS: blood sugar daily FOLLOW-UP: PHYSICIAN FOLLOW-UP: surgical f/u dr Vee ADDITIONAL FOLLOW-UP: oncology f/u dr Wilkerson LAB ORDERS FOR FOLLOW-UP: cbc ,bmp weekly for 4 weeks ANTICOAGULATION F/U NEEDED: sq heparin for 2 weeks TREATMENT/EQUIPMENT ORDERS: ADAPTIVE EQUIPMENT NEEDED: [facility] Physical Therapy For: Evalulation/Treatment Occupational Therapy For: Evaluation/Treatment DISCHARGE MEDICATIONS: Home Meds Active Scripts Pantoprazole Sodium (PANTOPRAZOLE SODIUM ) 40 Mg Tablet., 40 MG PO DAILY for 30 for 30 Days, #30 TAB.SR Prov:BONNY BEST MD 05/19/19 Prochlorperazine Maleate (PROCHLORPERAZINE MALEATE) 10 Mg Tablet, 10 MG PO PRN Q6HRS PRN for NAUSEA/VOMITING for 30 Days, TAB Prov:BONNY BEST MD 05/19/19 Polyethylene Glycol 3350 (POLYETHYLENE GLYCOL 3350) 17 Gm Powd.pack, 30 GM PO DAILY for constipation MDD 17, #30 PKT Prov:BONNY BEST MD 05/19/19 Hydrocodone Bit/Acetaminophen (HYDROCODONE-APAP 10-325 ) 1 Tab Tablet, 1 TAB PO PRN Q4HRS PRN for MODERATE PAIN, SEVERE PAIN for 30 Days, TAB Prov:BONNY BEST MD 05/19/19 Cholestyramine/Aspartame (PREVALITE PACKET) 4 Gm Powd.pack, 4 GM PO BID@1000,2200 for pancreas for 30 Days, PKT Prov:BONNY BEST MD 05/19/19 Heparin Sodium,Porcine (HEPARIN SODIUM) 5,000 Unit/1 Ml Vial, 5000 UNIT SQ Q12HR for dvt prevention for 15 Days, EACH Prov:BONNY BEST MD 05/19/19 Sertraline Hcl (ZOLOFT) 50 Mg Tablet, 50 MG PO DAILY, #30 BOTTLE Prov:SRINIVASA ABDULLAHI MD 04/17/15 Atorvastatin Calcium (LIPITOR) 10 Mg Tablet, 10 MG PO QHS, #30 BOTTLE Prov:SRINIVASA ABDULLAHI MD 04/17/15 Discontinued Scripts [Polyethylene Glycol 3350] 17 GM PACKET No Conflict Check, 17 GM PO DAILY, #30 BOTTLE Prov:SRINIVASA ABDULLAHI MD 04/17/15 [Oxycodone Hcl/Acetaminophen] 1 TAB TABLET No Conflict Check, 1 TAB PO PRN Q4HRS PRN for MILD PAIN, #40 BOTTLE Prov:SRINIVASA ABDULLAHI MD 04/17/15 Gabapentin (NEURONTIN ) 300 Mg Capsule, 300 MG PO TID, #90 BOTTLE Prov:SRINIVASA ABDULLAHI MD 04/17/15 [Amoxicillin/Potassium Clav] 1 TAB TABLET No Conflict Check, 1 TAB PO BID, #14 BOT Prov:SRINIVASA ABDULLAHI MD 04/17/15 [Amitriptyline Hcl] 50 MG TABLET No Conflict Check, 50 MG PO QHS Prov:SRINIVASA ABDULLAHI MD 04/17/15 BONNY BEST MD May 19, 2019 08:49
[2019-05-19] MEDS: POLYETHYLENE GLYCOL 3350 17 GM PACKET. PO SCH (09:00)
--- NOTE | 2019-05-19 09:03 | PDOC ---
PROGRESS NOTES Subjective Subjective HPI -f/u of T3 N1 M0, stage IIB cholangiocarcinoma, status post Whipple surgery on 05/08/2019. ROS - no abd pain Objective Objective Vital Signs Date Time Temp Pulse Resp B/P (MAP) Pulse Ox O2 Delivery O2 Flow Rate FiO2 05/19/19 03:00 18 05/19/19 02:51 94 Room Air 05/18/19 23:11 98.5 91 122/67 (85) 98.5 05/18/19 01:55 2.0 Intake and Output 05/19/19 07:00 Intake Total 480 ml Output Total 385 ml Balance 95 ml Intake Oral 480 ml Gastric Drainage Total 325 ml Drainage Total 60 ml # Voids 3 # Bowel Movements 1 Physical Exam Heart: Normal S1, Normal S2 General: Alert, Oriented X3, No acute distress Lungs: Clear to auscultation Neuro: Normal speech Psych/Mental Status: Mental status NL Assessment Assessment Problems Medical Problems: (1) Acute hepatitis Status: Acute (2) Epigastric pain Status: Acute (3) Generalized pruritus Status: Acute (4) Obstructive jaundice Status: Acute IMPRESSION AND PLAN: 1. T3 N1 M0, stage IIB cholangiocarcinoma, status post Whipple surgery on 05/08/2019. I discussed the diagnosis, staging and adjuvant chemotherapy options with the patient and her granddaughter. I would recommend to continue current postoperative care and followup with me in about 2-3 weeks to discuss adjuvant chemotherapy options. I would recommend adjuvant chemotherapy with Gemzar based regimen if her functional status is good. I d/w Dr Key 2. Anemia postoperatively. Preop hemoglobin was normal. Hemoglobin is 8.4 on 05/14/2019. Continue to monitor. Hb stable at 8.4 on 05/17/19. No bleed. Comment Review of Relevant I have reviewed the following items betty (where applicable) has been applied. Labs Laboratory Tests Test 05/17/19 11:41 05/17/19 17:00 05/18/19 05:45 05/18/19 07:43 Glucose (Fingerstick) 115 mg/dL (70-99) 113 mg/dL (70-99) 131 mg/dL (70-99) Sodium Level 139 mmol/L (136-145) Potassium Level 3.6 mmol/L (3.5-5.1) Chloride Level 104 mmol/L (98-107) Carbon Dioxide Level 25 mmol/L (21-32) Anion Gap 10 (6-14) Blood Urea Nitrogen 15 mg/dL (7-20) Creatinine 1.1 mg/dL (0.6-1.0) Estimated GFR (Cockcroft-Gault) 47.7 Glucose Level 150 mg/dL (70-99) Calcium Level 8.4 mg/dL (8.5-10.1) Test 05/18/19 11:51 05/18/19 17:10 05/19/19 06:00 Glucose (Fingerstick) 125 mg/dL (70-99) 117 mg/dL (70-99) White Blood Count 11.2 x10^3/uL (4.0-11.0) Red Blood Count 2.71 x10^6/uL (3.50-5.40) Hemoglobin 8.2 g/dL (12.0-15.5) Hematocrit 25.0 % (36.0-47.0) Mean Corpuscular Volume 92 fL (79-100) Mean Corpuscular Hemoglobin 30 pg (25-35) Mean Corpuscular Hemoglobin Concent 33 g/dL (31-37) Red Cell Distribution Width 16.1 % (11.5-14.5) Platelet Count 632 x10^3/uL (140-400) Neutrophils (%) (Auto) 67 % (31-73) Lymphocytes (%) (Auto) 21 % (24-48) Monocytes (%) (Auto) 7 % (0-9) Eosinophils (%) (Auto) 4 % (0-3) Basophils (%) (Auto) 1 % (0-3) Neutrophils # (Auto) 7.5 x10^3/uL (1.8-7.7) Lymphocytes # (Auto) 2.4 x10^3/uL (1.0-4.8) Monocytes # (Auto) 0.8 x10^3/uL (0.0-1.1) Eosinophils # (Auto) 0.4 x10^3/uL (0.0-0.7) Basophils # (Auto) 0.1 x10^3/uL (0.0-0.2) Sodium Level 138 mmol/L (136-145) Potassium Level 3.7 mmol/L (3.5-5.1) Chloride Level 107 mmol/L (98-107) Carbon Dioxide Level 28 mmol/L (21-32) Anion Gap 3 (6-14) Blood Urea Nitrogen 17 mg/dL (7-20) Creatinine 1.2 mg/dL (0.6-1.0) Estimated GFR (Cockcroft-Gault) 43.1 Glucose Level 120 mg/dL (70-99) Calcium Level 8.0 mg/dL (8.5-10.1) Laboratory Tests Test 05/18/19 11:51 05/18/19 17:10 05/19/19 06:00 Glucose (Fingerstick) 125 mg/dL (70-99) 117 mg/dL (70-99) White Blood Count 11.2 x10^3/uL (4.0-11.0) Red Blood Count 2.71 x10^6/uL (3.50-5.40) Hemoglobin 8.2 g/dL (12.0-15.5) Hematocrit 25.0 % (36.0-47.0) Mean Corpuscular Volume 92 fL (79-100) Mean Corpuscular Hemoglobin 30 pg (25-35) Mean Corpuscular Hemoglobin Concent 33 g/dL (31-37) Red Cell Distribution Width 16.1 % (11.5-14.5) Platelet Count 632 x10^3/uL (140-400) Neutrophils (%) (Auto) 67 % (31-73) Lymphocytes (%) (Auto) 21 % (24-48) Monocytes (%) (Auto) 7 % (0-9) Eosinophils (%) (Auto) 4 % (0-3) Basophils (%) (Auto) 1 % (0-3) Neutrophils # (Auto) 7.5 x10^3/uL (1.8-7.7) Lymphocytes # (Auto) 2.4 x10^3/uL (1.0-4.8) Monocytes # (Auto) 0.8 x10^3/uL (0.0-1.1) Eosinophils # (Auto) 0.4 x10^3/uL (0.0-0.7) Basophils # (Auto) 0.1 x10^3/uL (0.0-0.2) Sodium Level 138 mmol/L (136-145) Potassium Level 3.7 mmol/L (3.5-5.1) Chloride Level 107 mmol/L (98-107) Carbon Dioxide Level 28 mmol/L (21-32) Anion Gap 3 (6-14) Blood Urea Nitrogen 17 mg/dL (7-20) Creatinine 1.2 mg/dL (0.6-1.0) Estimated GFR (Cockcroft-Gault) 43.1 Glucose Level 120 mg/dL (70-99) Calcium Level 8.0 mg/dL (8.5-10.1) Microbiology 04/26/19 Urine Culture - Final, Complete 04/26/19 Urine Culture Result 1 (QUEENIE) - Final, Complete Medications Current Medications Iohexol (Omnipaque 300 Mg/ml) 60 ml 1X ONCE IV Last administered on 04/26/19at 12:06; Start 04/26/19 at 12:30; Stop 04/26/19 at 12:31; Status DC Info (CONTRAST GIVEN -- Rx MONITORING) 1 each PRN DAILY PRN MC SEE COMMENTS; Start 04/26/19 at 12:00; Stop 04/28/19 at 11:59; Status DC Ondansetron HCl (Zofran) 4 mg PRN Q6HRS PRN IV NAUSEA/VOMITING Last administered on 04/29/19at 01:04; Start 04/26/19 at 12:30; Stop 04/29/19 at 04:56; Status DC Cholestyramine Resin (Questran Light) 4 gm BID@1000,2200 PO Last administered on 05/18/19at 11:13; Start 04/26/19 at 22:00 Hydroxyzine HCl (Atarax) 25 mg PRN Q6HRS PRN PO ITCHING Last administered on 05/06/19at 21:03; Start 04/26/19 at 12:30 Morphine Sulfate (Morphine Sulfate) 2 mg PRN Q6HRS PRN IV SEVERE PAIN 7-10; Start 04/26/19 at 12:30; Stop 04/26/19 at 12:42; Status DC Acetaminophen/ Hydrocodone Bitart (Lortab 5/325) 1 tab PRN Q6HRS PRN PO MILD PA IN / TEMP; Start 04/26/19 at 12:30; Stop 04/26/19 at 12:42; Status DC Gabapentin (Neurontin) 300 mg TID PO Last administered on 05/18/19 21:15; Start 04/26/19 at 14:00 Lorazepam (Ativan) 0.5 mg PRN BID PRN PO AGITATION Last administered on 05/16/19 15:50; Start 04/26/19 at 12:30 Sertraline HCl (Zoloft) 50 mg DAILY PO Last administered on 05/18/19 08:44; Start 04/27/19 at 09:00 Tramadol HCl (Ultram) 50 mg TID PO Last administered on 04/29/19 09:09; Start 04/26/19 at 14:00; Stop 04/29/19 at 10:09; Status DC Acetaminophen (Tylenol) 325 mg PRN Q6HRS PRN PO MILD PAIN / TEMP; Start 04/26/19 at 12:30 Polyethylene Glycol (miraLAX PACKET) 17 gm DAILY PO Last administered on 05/18/19 08:44; Start 04/27/19 at 09:00 Magnesium Hydroxide (Milk Of Magnesia) 2,400 mg PRN DAILY PRN PO CONSTIPATION Last administered on 04/29/19 02:34; Start 04/26/19 at 12:30 Acetaminophen/ Hydrocodone Bitart (Lortab 5/325) 1 tab PRN Q4HRS PRN PO MODERATE PAIN Last administered on 05/16/19 14:39; Start 04/26/19 at 12:45; Stop 05/16/19 at 16:22; Status DC Morphine Sulfate (Morphine Sulfate) 1 mg PRN Q4HRS PRN IV SEVERE PAIN 7-10 Last administered on 04/29/19 01:11; Start 04/26/19 at 12:45; Stop 04/29/19 at 04:56; Status DC Levofloxacin/ Dextrose 100 ml @ 100 mls/hr 1X ONCE IV Last administered on 04/28/19 08:31; Start 04/28/19 at 07:15; Stop 04/28/19 at 08:14; Status DC Ringer's Solution 1,000 ml @ 75 mls/hr 1X ONCE IV Last administered on 04/28/19 14:43; Start 04/28/19 at 12:15; Stop 04/29/19 at 01:34; Status DC Iohexol (Omnipaque 300 Mg/ml) 100 ml STK-MED ONCE .ROUTE ; Start 04/28/19 at 13:24; Stop 04/28/19 at 13:25; Status DC Famotidine (Pepcid Vial) 20 mg STK-MED ONCE .ROUTE ; Start 04/28/19 at 14:12; Stop 04/28/19 at 14:13; Status DC Dexamethasone Sodium Phosphate (Decadron) 20 mg STK-MED ONCE .ROUTE ; Start 04/28/19 at 14:13; Stop 04/28/19 at 14:14; Status DC Lidocaine HCl (Lidocaine Pf 2% Vial) 5 ml STK-MED ONCE .ROUTE ; Start 04/28/19 at 15:00; Stop 04/28/19 at 15:01; Status DC Iohexol (Omnipaque 300 Mg/ml) 100 ml STK-MED ONCE IV Last administered on 04/28/19at 16:20; Start 04/28/19 at 16:20; Stop 04/28/19 at 16:48; Status DC Fentanyl Citrate (Fentanyl 2ml Vial) 25 mcg 1X ONCE IV Last administered on 04/28/19at 17:05; Start 04/28/19 at 17:00; Stop 04/28/19 at 17:01; Status DC Morphine Sulfate (Morphine Sulfate) 2 mg PRN Q4HRS PRN IV SEVERE PAIN 7-10; Start 04/29/19 at 05:00; Stop 05/08/19 at 08:25; Status DC Ondansetron HCl (Zofran) 8 mg PRN Q6HRS PRN IV NAUSEA/VOMITING, 1ST CHOICE Last administered on 05/03/19at 22:23; Start 04/29/19 at 05:00; Stop 05/12/19 at 14:03; Status DC Prochlorperazine Maleate (Compazine) 10 mg PRN Q6HRS PRN PO NAUSEA/VOMITING Last administered on 05/17/19 20:00; Start 04/29/19 at 05:00 Tramadol HCl (Ultram) 50 mg QID PO Last administered on 05/18/19 21:15; Start 04/29/19 at 13:00 Potassium Chloride/Dextrose/ Sod Cl 1,000 ml @ 75 mls/hr [id number] IV Last administered on 04/30/19at 02:53; Start 04/29/19 at 10:15; Stop 04/30/19 at 10:45; Status DC Amitriptyline HCl (Elavil) 25 mg QHS PO Last administered on 05/18/19at 21:15; Start 04/29/19 at 21:00 Phenylephrine HCl (PHENYLEPHRINE in 0.9% NACL PF) 1 mg STK-MED ONCE IV ; Start 04/28/19 at 14:00; Stop 04/29/19 at 13:10; Status DC Succinylcholine Chloride (Anectine) 200 mg STK-MED ONCE .ROUTE ; Start 04/28/19 at 14:00; Stop 04/29/19 at 13:10; Status DC Propofol (Diprivan) 200 mg STK-MED ONCE IV ; Start 04/28/19 at 14:00; Stop 04/29/19 at 13:10; Status DC Amino Acids/ Glycerin/ Electrolytes 1,000 ml @ 80 mls/hr [id number] IV Last administered on 05/09/19at 08:22; Start 04/30/19 at 10:45; Stop 05/09/19 at 21:59; Status DC Amlodipine Besylate (Norvasc) 5 mg DAILY PO Last administered on 05/05/19at 08:41; Start 05/01/19 at 13:00; Stop 05/05/19 at 10:06; Status DC Hydralazine HCl (Apresoline Inj) 10 mg PRN Q4HRS PRN IVP ELEVATED BP, SEE COMMENTS; Start 05/01/19 at 12:45 Amlodipine Besylate (Norvasc) 2.5 mg DAILY PO Last administered on 05/06/19at 09:28; Start 05/05/19 at 10:30; Stop 05/06/19 at 10:03; Status DC Cefoxitin Sodium (Mefoxin) 2 gm 1X PREOP IVP ; Start 05/08/19 at 08:00; Stop 05/08/19 at 10:15; Status DC Ondansetron HCl (Zofran) 4 mg PRN Q6HRS PRN IV NAUSEA/VOMITING; Start 05/08/19 at 07:00; Stop 05/08/19 at 20:00; Status DC Fentanyl Citrate (Fentanyl 2ml Vial) 25 mcg PRN Q5MIN PRN IV MILD PAIN 1-3 Last administered on 05/08/19at 15:37; Start 05/08/19 at 07:00; Stop 05/08/19 at 20:00; Status DC Fentanyl Citrate (Fentanyl 2ml Vial) 50 mcg PRN Q5MIN PRN IV MODERATE TO SEVERE PAIN; Start 05/08/19 at 07:00; Stop 05/08/19 at 20:00; Status DC Morphine Sulfate (Morphine Sulfate) 1 mg PRN Q10MIN PRN IV SEVERE PAIN 7-10; Start 05/08/19 at 07:00; Stop 05/08/19 at 20:00; Status DC Ringer's Solution 1,000 ml @ 30 mls/hr Q24H IV Last administered on 05/08/19at 07:28; Start 05/08/19 at 07:00; Stop 05/08/19 at 18:59; Status DC Hydromorphone HCl (Dilaudid) 0.5 mg PRN Q10MIN PRN IV SEV PAIN, Second choice; Start 05/08/19 at 07:00; Stop 05/08/19 at 20:00; Status DC Prochlorperazine Edisylate (Compazine) 5 mg PACU PRN PRN IV NAUSEA, MRX1 Last administered on 05/08/19at 15:37; Start 05/08/19 at 07:00; Stop 05/08/19 at 20:00; Status DC Fentanyl Citrate (Fentanyl 2ml Vial) 100 mcg STK-MED ONCE .ROUTE ; Start 04/24 02/09 at 07:06; Stop 05/08/19 at 07:07; Status DC Glycopyrrolate (Robinul) 1 mg STK-MED ONCE .ROUTE ; Start 05/08/19 at 07:07; Stop 05/08/19 at 07:07; Status DC Rocuronium [place] (Zemuron) 100 mg STK-MED ONCE .ROUTE ; Start 05/08/19 at 07:08; Stop 05/08/19 at 07:08; Status DC Neostigmine Methylsulfate (Neostigmine Methylsulfate) 5 mg STK-MED ONCE .ROUTE ; Start 05/08/19 at 07:08; Stop 05/08/19 at 07:08; Status DC Propofol 20 ml @ As Directed STK-MED ONCE IV ; Start 05/08/19 at 07:09; Stop 05/08/19 at 07:09; Status DC Lidocaine HCl (Lidocaine Pf 2% Vial) 5 ml STK-MED ONCE .ROUTE ; Start 05/08/19 at 07:09; Stop 05/08/19 at 07:09; Status DC Ondansetron HCl (Zofran) 4 mg STK-MED ONCE .ROUTE ; Start 05/08/19 at 07:09; Stop 05/08/19 at 07:09; Status DC Dexamethasone Sodium Phosphate (Decadron) 4 mg STK-MED ONCE .ROUTE ; Start 05/08/19 at 07:09; Stop 05/08/19 at 07:09; Status DC Phenylephrine HCl (Ricco-Synephrine Inj) 10 mg STK-MED ONCE .ROUTE ; Start 05/08/19 at 07:12; Stop 05/08/19 at 07:12; Status DC Sodium Chloride 39.95 ml/ Hydromorphone HCl 0.5 mg/ Ropivacaine 10 ml/ Epidural Dosage Infused (Pha) 50 ml @ 8 mls/hr CONT PRN EPID PER PROTOCOL Last administered on 05/13/19at 03:29; Start 05/08/19 at 09:00; Stop 05/16/19 at 08:33; Status DC Fentanyl Citrate (Fentanyl 2ml Vial) 100 mcg STK-MED ONCE .ROUTE ; Start 05/08/19 at 08:25; Stop 05/08/19 at 08:25; Status DC Ephedrine Sulfate (ePHEDrine PF IN SALINE SYRINGE) 50 mg STK-MED ONCE IV ; Start 05/08/19 at 08:37; Stop 05/08/19 at 08:37; Status DC Cefoxitin Sodium (Mefoxin) 2 gm 1X PREOP IVP ; Start 05/08/19 at 10:15; Stop 05/12/19 at 12:54; Status DC Cefoxitin Sodium (Mefoxin) 2 gm 1X ONCE IVP Last administered on 05/08/19at 12:31; Start 05/08/19 at 12:30; Stop 05/08/19 at 12:31; Status DC Cefoxitin Sodium (Mefoxin) 1 gm STK-MED ONCE IVP ; Start 05/08/19 at 13:51; Stop 05/08/19 at 13:52; Status DC Famotidine (Pepcid Vial) 20 mg DAILY IVP Last administered on 05/09/19 08:22; Start 05/08/19 at 21:00; Stop 05/09/19 at 16:20; Status DC Heparin Sodium (Porcine) (Heparin Sodium) 5,000 unit Q12HR SQ Last administered on 05/18/19at 21:15; Start 05/08/19 at 14:30 Sodium Chloride (Normal Saline Flush) 3 ml QSHIFT PRN IV AFTER MEDS AND BLOOD DRAWS; Start 05/08/19 at 14:30 Ringer's Solution 1,000 ml @ 100 mls/hr Q10H IV Last administered on 05/09/19at 18:58; Start 05/08/19 at 14:18; Stop 05/09/19 at 19:29; Status DC Naloxone HCl (Narcan) 0.4 mg PRN Q2MIN PRN IV SEE INSTRUCTIONS; Start 05/08/19 at 14:30 Sodium Chloride 1,000 ml @ 25 mls/hr Q24H IV Last administered on 05/15/19at 13:29; Start 05/08/19 at 14:18; Stop 05/16/19 at 08:33; Status DC Ondansetron HCl (Zofran) 4 mg PRN Q6HRS PRN IV NAUESA, 1ST CHOICE Last administered on 05/18/19at 14:47; Start 05/08/19 at 14:30 Fentanyl Citrate (Fentanyl 2ml Vial) 100 mcg STK-MED ONCE .ROUTE ; Start 05/08/19 at 14:29; Stop 05/08/19 at 14:29; Status DC Sevoflurane (Ultane) 90 ml STK-MED ONCE IH ; Start 05/08/19 at 14:44; Stop 05/08/19 at 14:44; Status DC Norepinephrine Bitartrate 250 ml @ 13.438 mls/ hr CONT PRN IV SEE I/O RECORD Last administered on 05/09/19at 23:49; Start 05/08/19 at 18:45; Stop 05/12/19 at 14:03; Status DC Ringer's Solution 500 ml @ 500 mls/hr 1X ONCE IV Last administered on 05/08/19at 19:22; Start 05/08/19 at 18:45; Stop 05/08/19 at 19:44; Status DC Ringer's Solution 500 ml @ 500 mls/hr 1X ONCE IV Last administered on 05/09/19at 03:39; Start 05/09/19 at 03:30; Stop 05/09/19 at 04:29; Status DC Ringer's Solution 500 ml @ 500 mls/hr 1X ONCE IV Last administered on 05/09/19at 10:14; Start 05/09/19 at 08:15; Stop 05/09/19 at 09:14; Status DC Info (Tpn Per Pharmacy) 1 each PRN DAILY PRN MC SEE COMMENTS Last administered on 05/15/19at 13:04; Start 05/09/19 at 13:00; Stop 05/16/19 at 08:33; Status DC Sodium Acetate 90 meq/Potassium Chloride 50 meq/ Potassium Phosphate 13.6 mmol/Magnesium Sulfate 8 meq/ Calcium Gluconate 10 meq/ Multivitamins 10 ml/Chromium/ Copper/Manganese/ Seleni/Zn 1 ml/ Total Parenteral Nutrition/Amino Acids/Dextrose/ Fat Emulsion Intravenous 1,512 ml @ 63 mls/hr TPN CONT IV Last administered on 05/09/19at 21:00; Start 05/09/19 at 22:00; Stop 05/10/19 at 21:59; Status DC Info (Tpn Per Pharmacy) 1 each PRN DAILY PRN MC SEE COMMENTS; Start 05/09/19 at 14:30; Status UNV Pantoprazole Sodium (PROTONIX VIAL for IV PUSH) 40 mg [id number] IVP Last administered on 05/17/19at 06:06; Start 05/09/19 at 18:00; Stop 05/17/19 at 14:22; Status DC Albumin Human 500 ml @ 125 mls/hr 1X ONCE IV Last administered on 05/09/19at 17:33; Start 05/09/19 at 17:30; Stop 05/09/19 at 21:29; Status DC Diphenhydramine HCl (Benadryl) 12.5 mg PRN Q6HRS PRN IVP ITCHING Last administered on 05/18/19at 21:37; Start 05/09/19 at 18:30 Acetaminophen (Tylenol Supp) 650 mg PRN Q8HRS PRN NE MILD PAIN / TEMP; Start 05/09/19 at 18:30 Potassium Phosphate 13.6 mmol/Dextrose 104.5333 ml @ 52.267 m... Q2H IV Last administered on 05/10/19at 11:28; Start 05/10/19 at 09:00; Stop 05/10/19 at 12:59; Status DC Sodium Acetate 90 meq/Potassium Chloride 50 meq/ Potassium Phosphate 18 mmol/ Magnesium Sulfate 10 meq/Calcium Gluconate 10 meq/ Multivitamins 10 ml/Chromium/ Copper/Manganese/ Seleni/Zn 1 ml/ Total Parenteral Nutrition/Amino Acids/Dextrose/ Fat Emulsion Intravenous 1,512 ml @ 63 mls/hr TPN CONT IV Last administered on 05/10/19at 21:32; Start 05/10/19 at 22:00; Stop 05/11/19 at 21:59; Status DC Potassium Phosphate 13.6 mmol/Dextrose 104.5333 ml @ 52.267 m... Q2H IV Last administered on 05/11/19at 11:37; Start 05/11/19 at 11:30; Stop 05/11/19 at 13:29; Status DC Sodium Acetate 90 meq/Potassium Chloride 50 meq/ Potassium Phosphate 24 mmol/ Magnesium Sulfate 15 meq/Calcium Gluconate 10 meq/ Multivitamins 10 ml/Chromium/ Copper/Manganese/ Seleni/Zn 1 ml/ Total Parenteral Nutrition/Amino Acids/Dextrose/ Fat Emulsion Intravenous 1,512 ml @ 63 mls/hr TPN CONT IV Last administered on 05/11/19at 22:40; Start 05/11/19 at 22:00; Stop 05/12/19 at 21:59; Status DC Insulin Human Lispro (HumaLOG) 0-5 UNITS TIDWMEALS SQ Last administered on 05/17/19at 08:42; Start 05/11/19 at 12:00; Stop 05/18/19 at 12:33; Status DC Dextrose (Dextrose 50%-Water Syringe) 12.5 gm PRN Q15MIN PRN IV SEE COMMENTS; Start 05/11/19 at 11:30; Stop 05/16/19 at 08:33; Status DC Dextrose 250 ml PRN Q15MIN PRN IV SEE COMMENTS; Start 05/11/19 at 11:30; Stop 05/18/19 at 12:33; Status DC Sodium Acetate 90 meq/Potassium Chloride 50 meq/ Potassium Phosphate 24 mmol/ Magnesium Sulfate 18 meq/Calcium Gluconate 10 meq/ Multivitamins 10 ml/Chromium/ Copper/Manganese/ Seleni/Zn 1 ml/ Insulin Human Regular 7 unit/ Total Parenteral Nutrition/Amino Acids/Dextrose/ Fat Emulsion Intravenous 1,512 ml @ 63 mls/hr TPN CONT IV Last administered on 05/12/19at 22:28; Start 05/12/19 at 22:00; Stop 05/13/19 at 21:59; Status DC Naloxone HCl (Narcan) 0.4 mg PRN Q2MIN PRN IV SEE INSTRUCTIONS; Start 05/13/19 at 09:15; Status UNV Sodium Chloride 1,000 ml @ 25 mls/hr Q24H IV ; Start 05/13/19 at 09:06; Status UNV Hydromorphone HCl 30 ml @ 0 mls/hr CONT PRN PRN IV PER PROTOCOL Last administered on 05/15/19at 16:42; Start 05/13/19 at 09:30; Stop 05/16/19 at 08:33; Status DC Sodium Acetate 90 meq/Potassium Chloride 30 meq/ Potassium Phosphate 24 mmol/ Magnesium Sulfate 18 meq/Calcium Gluconate 10 meq/ Multivitamins 10 ml/Chromium/ Copper/Manganese/ Seleni/Zn 1 ml/ Insulin Human Regular 7 unit/ Total Parenteral Nutrition/Amino Acids/Dextrose/ Fat Emulsion Intravenous 1,512 ml @ 63 mls/hr TPN CONT IV Last administered on 05/13/19at 22:07; Start 05/13/19 at 22:00; Stop 05/14/19 at 21:59; Status DC Hydromorphone HCl (Dilaudid Standard BUTCHER) 12 mg STK-MED ONCE IV ; Start 05/13/19 at 09:47; Stop 05/14/19 at 08:59; Status DC Sodium Acetate 90 meq/Potassium Chloride 30 meq/ Potassium Phosphate 24 mmol/ Magnesium Sulfate 18 meq/Calcium Gluconate 10 meq/ Multivitamins 10 ml/Chromium/ Copper/Manganese/ Seleni/Zn 1 ml/ Insulin Human Regular 7 unit/ Total Parenteral Nutrition/Amino Acids/Dextrose/ Fat Emulsion Intravenous 1,512 ml @ 63 mls/hr TPN CONT IV Last administered on 05/14/19at 22:18; Start 05/14/19 at 22:00; Stop 05/15/19 at 21:59; Status DC Hydromorphone HCl (Dilaudid Standard BUTCHER) 12 mg STK-MED ONCE IV ; Start 05/14/19 at 13:41; Stop 05/15/19 at 10:40; Status DC Sodium Acetate 90 meq/Potassium Chloride 30 meq/ Potassium Phosphate 24 mmol/ Magnesium Sulfate 18 meq/Calcium Gluconate 10 meq/ Multivitamins 10 ml/Chromium/ Copper/Manganese/ Seleni/Zn 1 ml/ Insulin Human Regular 7 unit/ Total Parenteral Nutrition/Amino Acids/Dextrose/ Fat Emulsion Intravenous 1,512 ml @ 63 mls/hr TPN CONT IV Last administered on 05/15/19at 22:07; Start 05/15/19 at 22:00; Stop 05/16/19 at 21:59; Status DC Hydromorphone HCl (Dilaudid Standard BUTCHER) 12 mg STK-MED ONCE IV ; Start 05/15/19 at 16:18; Stop 05/16/19 at 11:57; Status DC Sodium Acetate 90 meq/Potassium Chloride 30 meq/ Potassium Phosphate 24 mmol/ Magnesium Sulfate 18 meq/Calcium Gluconate 10 meq/ Multivitamins 10 ml/Chromium/ Copper/Manganese/ Seleni/Zn 1 ml/ Insulin Human Regular 12 unit/ Total Parenteral Nutrition/Amino Acids/Dextrose/ Fat Emulsion Intravenous 1,512 ml @ 63 mls/hr TPN CONT IV ; Start 05/16/19 at 22:00; Stop 05/16/19 at 14:11; Sta tus DC Acetaminophen/ Hydrocodone Bitart (Lortab 10/325) 1 tab PRN Q4HRS PRN PO MODERATE PAIN, SEVERE PAIN Last administered on 05/18/19at 10:20; Start 05/16/19 at 16:30 Hydromorphone HCl (Dilaudid) 1 mg PRN Q4HRS PRN IV SEVERE PAIN 7-10; Start 05/16/19 at 16:30; Stop 05/16/19 at 16:23; Status DC Hydromorphone HCl (Dilaudid) 0.1 mg PRN Q4HRS PRN IVP PAIN Last administered on 05/19/19at 00:42; Start 05/16/19 at 16:30 Pantoprazole Sodium (Protonix) 40 mg [id number] PO Last administered on 05/19/19at 05:48; Start 05/17/19 at 18:00 Potassium Bicarbonate (Potassium Effervescent Tablet) 10 meq 1X ONCE PO Last administered on 05/18/19at 13:27; Start 05/18/19 at 13:00; Stop 05/18/19 at 13:01; Status DC Active Scripts Active Pantoprazole Sodium (Pantoprazole Sodium) 40 Mg Tablet.dr 40 Mg PO DAILY 30 Days Prochlorperazine Maleate 10 Mg Tablet 10 Mg PO PRN Q6HRS PRN 30 Days Polyethylene Glycol 3350 17 Gm Powd.pack 30 Gm PO DAILY MDD 17 Hydrocodone-Apap 10-325 (Hydrocodone Bit/Acetaminophen) 1 Tab Tablet 1 Tab PO PRN Q4HRS PRN 30 Days Prevalite Packet (Cholestyramine/Aspartame) 4 Gm Powd.pack 4 Gm PO BID@1000,2200 30 Days Heparin Sodium (Heparin Sodium,Porcine) 5,000 Unit/1 Ml Vial 5,000 Unit SQ Q12HR 15 Days Zoloft (Sertraline Hcl) 50 Mg Tablet 50 Mg PO DAILY Lipitor (Atorvastatin Calcium) 10 Mg Tablet 10 Mg PO QHS Vitals/I & O Vital Sign - Last 24 Hours 05/18/19 05/18/19 05/18/19 05/18/19 10:04 10:20 11:00 11:23 Temp 97.3 97.3 Pulse 92 Resp 22 B/P (MAP) 143/84 (103) Pulse Ox 98 O2 Delivery Room Air Room Air Room Air Room Air 05/18/19 05/18/19 05/18/19 05/18/19 13:27 14:47 14:48 15:00 Temp 98.3 98.3 Pulse 88 Resp 20 B/P (MAP) 133/70 (91) Pulse Ox 91 O2 Delivery Room Air Room Air Room Air Room Air 05/18/19 05/18/19 05/18/19 05/18/19 15:14 18:27 19:25 20:00 Temp 98.6 98.6 Pulse 94 Resp 20 18 B/P (MAP) 130/74 (92) Pulse Ox 97 O2 Delivery Room Air Room Air Room Air Room Air 05/18/19 05/18/19 05/19/19 05/19/19 21:15 23:11 00:42 00:47 Temp 98.5 98.5 Pulse 91 Resp 20 18 20 20 B/P (MAP) 122/67 (85) Pulse Ox 97 92 94 94 O2 Delivery Room Air Room Air Room Air Room Air 05/19/19 05/19/19 05/19/19 00:48 02:51 03:00 Resp 18 20 18 Pulse Ox 94 O2 Delivery Room Air Room Air Intake and Output 05/18/19 05/18/19 05/19/19 15:00 23:00 07:00 Intake Total 480 ml Output Total 385 ml Balance -385 ml 480 ml GILBERT LÓPEZ MD May 19, 2019 09:03
[2019-05-19] MEDS: GABAPENTIN 300 MG CAPSULE. PO SCH ×3 (09:04→21:31)
[2019-05-19] MEDS: SERTRALINE 50 MG TABLET. PO SCH (09:04)
--- NOTE | 2019-05-19 09:04 | PDOC ---
SURGICAL PROGRESS NOTE Subjective feeling well plans for rehab Vital Signs Vital Signs Date Time Temp Pulse Resp B/P (MAP) Pulse Ox O2 Delivery O2 Flow Rate FiO2 05/19/19 03:00 18 05/19/19 02:51 94 Room Air 05/18/19 23:11 98.5 91 122/67 (85) 98.5 I&O Intake and Output 05/19/19 06:59 Intake Total 480 ml Output Total 385 ml Balance 95 ml Intake Oral 480 ml Gastric Drainage Total 325 ml Drainage Total 60 ml # Voids 3 # Bowel Movements 1 General: Alert, Oriented X3, Cooperative, No acute distress Abdomen: Soft, Other (incision c/d/i, no erythema, drains serous(low output), g tube in place) Labs Laboratory Tests Test 05/17/19 11:41 05/17/19 17:00 05/18/19 05:45 05/18/19 07:43 Glucose (Fingerstick) 115 mg/dL (70-99) 113 mg/dL (70-99) 131 mg/dL (70-99) Sodium Level 139 mmol/L (136-145) Potassium Level 3.6 mmol/L (3.5-5.1) Chloride Level 104 mmol/L (98-107) Carbon Dioxide Level 25 mmol/L (21-32) Anion Gap 10 (6-14) Blood Urea Nitrogen 15 mg/dL (7-20) Creatinine 1.1 mg/dL (0.6-1.0) Estimated GFR (Cockcroft-Gault) 47.7 Glucose Level 150 mg/dL (70-99) Calcium Level 8.4 mg/dL (8.5-10.1) Test 05/18/19 11:51 05/18/19 17:10 05/19/19 06:00 Glucose (Fingerstick) 125 mg/dL (70-99) 117 mg/dL (70-99) White Blood Count 11.2 x10^3/uL (4.0-11.0) Red Blood Count 2.71 x10^6/uL (3.50-5.40) Hemoglobin 8.2 g/dL (12.0-15.5) Hematocrit 25.0 % (36.0-47.0) Mean Corpuscular Volume 92 fL (79-100) Mean Corpuscular Hemoglobin 30 pg (25-35) Mean Corpuscular Hemoglobin Concent 33 g/dL (31-37) Red Cell Distribution Width 16.1 % (11.5-14.5) Platelet Count 632 x10^3/uL (140-400) Neutrophils (%) (Auto) 67 % (31-73) Lymphocytes (%) (Auto) 21 % (24-48) Monocytes (%) (Auto) 7 % (0-9) Eosinophils (%) (Auto) 4 % (0-3) Basophils (%) (Auto) 1 % (0-3) Neutrophils # (Auto) 7.5 x10^3/uL (1.8-7.7) Lymphocytes # (Auto) 2.4 x10^3/uL (1.0-4.8) Monocytes # (Auto) 0.8 x10^3/uL (0.0-1.1) Eosinophils # (Auto) 0.4 x10^3/uL (0.0-0.7) Basophils # (Auto) 0.1 x10^3/uL (0.0-0.2) Sodium Level 138 mmol/L (136-145) Potassium Level 3.7 mmol/L (3.5-5.1) Chloride Level 107 mmol/L (98-107) Carbon Dioxide Level 28 mmol/L (21-32) Anion Gap 3 (6-14) Blood Urea Nitrogen 17 mg/dL (7-20) Creatinine 1.2 mg/dL (0.6-1.0) Estimated GFR (Cockcroft-Gault) 43.1 Glucose Level 120 mg/dL (70-99) Calcium Level 8.0 mg/dL (8.5-10.1) Laboratory Tests Test 05/18/19 11:51 05/18/19 17:10 05/19/19 06:00 Glucose (Fingerstick) 125 mg/dL (70-99) 117 mg/dL (70-99) White Blood Count 11.2 x10^3/uL (4.0-11.0) Red Blood Count 2.71 x10^6/uL (3.50-5.40) Hemoglobin 8.2 g/dL (12.0-15.5) Hematocrit 25.0 % (36.0-47.0) Mean Corpuscular Volume 92 fL (79-100) Mean Corpuscular Hemoglobin 30 pg (25-35) Mean Corpuscular Hemoglobin Concent 33 g/dL (31-37) Red Cell Distribution Width 16.1 % (11.5-14.5) Platelet Count 632 x10^3/uL (140-400) Neutrophils (%) (Auto) 67 % (31-73) Lymphocytes (%) (Auto) 21 % (24-48) Monocytes (%) (Auto) 7 % (0-9) Eosinophils (%) (Auto) 4 % (0-3) Basophils (%) (Auto) 1 % (0-3) Neutrophils # (Auto) 7.5 x10^3/uL (1.8-7.7) Lymphocytes # (Auto) 2.4 x10^3/uL (1.0-4.8) Monocytes # (Auto) 0.8 x10^3/uL (0.0-1.1) Eosinophils # (Auto) 0.4 x10^3/uL (0.0-0.7) Basophils # (Auto) 0.1 x10^3/uL (0.0-0.2) Sodium Level 138 mmol/L (136-145) Potassium Level 3.7 mmol/L (3.5-5.1) Chloride Level 107 mmol/L (98-107) Carbon Dioxide Level 28 mmol/L (21-32) Anion Gap 3 (6-14) Blood Urea Nitrogen 17 mg/dL (7-20) Creatinine 1.2 mg/dL (0.6-1.0) Estimated GFR (Cockcroft-Gault) 43.1 Glucose Level 120 mg/dL (70-99) Calcium Level 8.0 mg/dL (8.5-10.1) Problem List Problems Medical Problems: (1) Acute hepatitis Status: Acute (2) Epigastric pain Status: Acute (3) Generalized pruritus Status: Acute (4) Obstructive jaundice Status: Acute Assessment/Plan will review with Dr Branch--plans for drains, g tube at discharge TRUNG RUSH APRN May 19, 2019 09:04
[2019-05-19] MEDS: traMADol 50 MG TABLET PO SCH ×4 (09:05→21:37)
[2019-05-19] MEDS: HEPARIN for SUB-Q USE 5,000 UNIT/ML VIAL. SQ SCH ×2 (09:11→21:40)
[2019-05-19] MEDS: CHOLESTYRAMINE/ASPARTAME 4 GM PACKET PO SCH ×2 (10:30→22:00)
--- NOTE | 2019-05-19 10:30 | NUR ---
SS following up with discharge planning. SS received notification that pt was site neutral at [facility], ; fax [phone], and does not meet criteria. Discharge orders on the chart. SS met with pt and spouse in room to discuss discharge and group home unit. Pt's daughter had requested screen to [facility] last week, but when speaking with pt and spouse in room they are now requesting [facility], ; fax [phone]. Discharge orders and clinical phoned and faxed to [facility]. SS awaiting acceptance decision and insurance determination and will proceed accordingly with discharge planning. Pt's RN notified.
[2019-05-19 11:00] VITALS: BP 112/69
[2019-05-19] MEDS: HYDROcodone/APAP 10/325 1 TAB TABLET PO PRN ×2 (11:27→23:50)
--- NOTE | 2019-05-19 12:05 | PDOC ---
Subjective: Subjective: Legs are bothering her w/ change in weather. Objective: Objective: Possible DC to rehab today. Reviewed Dr. Wilkerson's notes - plans to follow-up to discussed chemo in 2-3 weeks. Vital Signs: Vital Signs Date Time Temp Pulse Resp B/P (MAP) Pulse Ox O2 Delivery O2 Flow Rate FiO2 05/19/19 11:44 16 Room Air 05/19/19 11:00 98.4 93 112/69 (83) 100 98.4 Labs: Laboratory Tests Test 05/18/19 17:10 05/19/19 06:00 Glucose (Fingerstick) 117 mg/dL White Blood Count 11.2 x10^3/uL Red Blood Count 2.71 x10^6/uL Hemoglobin 8.2 g/dL Hematocrit 25.0 % Mean Corpuscular Volume 92 fL Mean Corpuscular Hemoglobin 30 pg Mean Corpuscular Hemoglobin Concent 33 g/dL Red Cell Distribution Width 16.1 % Platelet Count 632 x10^3/uL Neutrophils (%) (Auto) 67 % Lymphocytes (%) (Auto) 21 % Monocytes (%) (Auto) 7 % Eosinophils (%) (Auto) 4 % Basophils (%) (Auto) 1 % Neutrophils # (Auto) 7.5 x10^3/uL Lymphocytes # (Auto) 2.4 x10^3/uL Monocytes # (Auto) 0.8 x10^3/uL Eosinophils # (Auto) 0.4 x10^3/uL Basophils # (Auto) 0.1 x10^3/uL Sodium Level 138 mmol/L Potassium Level 3.7 mmol/L Chloride Level 107 mmol/L Carbon Dioxide Level 28 mmol/L Anion Gap 3 Blood Urea Nitrogen 17 mg/dL Creatinine 1.2 mg/dL Estimated GFR (Cockcroft-Gault) 43.1 Glucose Level 120 mg/dL Calcium Level 8.0 mg/dL PE: GEN: NAD LUNGS: CTAB HEART: RRR ABD: soft NEURO/PSYCH: A & O �3 A/P: S/p Whipple, stage IIB cholangiocarcinoma -- Plans as above. CORI PEDERSEN May 19, 2019 12:05
--- NOTE | 2019-05-19 13:13 | PDOC ---
Provider Note Provider Note Discharge summary dictated.#[id number]. BONNY BEST MD May 19, 2019 13:13
[2019-05-19 15:00] VITALS: BP 110/67
--- NOTE | 2019-05-19 16:17 | NUR ---
SS following up with discharge planning. [facility] contacted SS and reported that they clinically declined pt. SS met with pt and discussed. Pt requested that referral go back to [facility], ; fax [phone]. SS faxed clinical updates to [facility]. SS will await insurance determination and will proceed accordingly with discharge planning.
[2019-05-19] MEDS: ACETAMINOPHEN 325 MG TABLET. PO PRN ×2 (17:12→21:32)
[2019-05-19 19:00] VITALS: BP 110/65
--- NOTE | 2019-05-19 20:37 | DS ---
DATE OF DISCHARGE: 05/19/2019 REASON FOR ADMISSION TO THE HOSPITAL: Obstructive jaundice secondary to pancreatic cancer. CONSULTATIONS: Dr. Branch and Dr. Wilkerson, Oncology. PROCEDURES DONE: 1. Echocardiogram. 2. EGD. 3. CT-guided biopsy. 4. Whipple's procedure. HOSPITAL COURSE: The patient is an 83-year-old female, patient was admitted with obstructive jaundice, was found to have pancreatic mass causing obstruction. The patient had a biopsy, which was suggestive of pancreatic adenocarcinoma. The patient underwent Whipple's procedure and pacemaker placement of G-tube and the patient did well after the surgery was in the ICU later on moved to the medical floor and the pathology came as invasive adenocarcinoma from the common bile duct and the patient was seen by Oncology, Dr. Wilkerson and whose impression was cholangiocarcinoma stage 2B, status post Whipple's procedure and recommended adjuvant chemotherapy when the patient's condition improved in 2-3 weeks. The patient was discharged to half-way. FINAL DIAGNOSES: Cholangiocarcinoma stage 2B. The patient underwent Whipple's procedure and the patient is going to half-way. When she gets stronger, she is going to see Oncology for adjuvant chemotherapy. BONNY BEST MD DR: ASMITA/valorie JOB#: [id number] / [id number] SRINIVASA Carpenter MD
[2019-05-19] MEDS: AMITRIPTYLINE HCL 25 MG TABLET. PO SCH (21:32)
[2019-05-19 23:00] VITALS: BP 122/68
[2019-05-19] MEDS: LORazepam 0.5 MG TABLET PO PRN (23:47)
[2019-05-20 03:00] VITALS: BP 124/79
[2019-05-20] MEDS: PANTOPRAZOLE 40 MG TABLET.DR. PO SCH ×2 (06:02→17:03)
[2019-05-20 07:00] VITALS: BP 127/76
[2019-05-20 08:27] LABS: CALCIUM 8.7 mg/dL (8.5-10.1); CREATININE 1.3 mg/dL (0.6-1.0); GFR 39.3; POTASSIUM 4.1 mmol/L (3.5-5.1)
[2019-05-20] MEDS: SERTRALINE 50 MG TABLET. PO SCH (08:50)
[2019-05-20] MEDS: POLYETHYLENE GLYCOL 3350 17 GM PACKET. PO SCH (08:50)
[2019-05-20] MEDS: traMADol 50 MG TABLET PO SCH ×3 (08:50→17:04)
[2019-05-20] MEDS: GABAPENTIN 300 MG CAPSULE. PO SCH ×2 (08:50→13:35)
[2019-05-20] MEDS: HEPARIN for SUB-Q USE 5,000 UNIT/ML VIAL. SQ SCH (08:53)
--- NOTE | 2019-05-20 09:47 | PDOC ---
PROGRESS NOTES Subjective Subjective feels good ,ready to go to snu Objective Objective Vital Signs Date Time Temp Pulse Resp B/P (MAP) Pulse Ox O2 Delivery O2 Flow Rate FiO2 05/20/19 08:54 Room Air 05/20/19 07:00 98.1 104 16 127/76 (93) 96 98.1 Intake and Output 05/20/19 07:00 Intake Total 630 ml Output Total 95 ml Balance 535 ml Intake Oral 630 ml Drainage Total 95 ml # Voids 3 # Bowel Movements 1 Physical Exam Physical Exam epidural electrical logging engineer removed yesterday Abdomen: Soft, Other (incision c/d/i, no erythema, drains serous(low output), g tube in place) Heart: Normal S1, Normal S2 Extremities: No edema General: Alert, Oriented X3, Cooperative, No acute distress HEENT: Other (ng) Lungs: Clear to auscultation MUSCULOSKELETAL: No deformity, Osteoarthritic changes both hands Neck: Supple Neuro: Normal speech Psych/Mental Status: Mental status NL Skin: No rashes COMMENT central line present.PEG, drains present. Diagnosis Problem List Problems Medical Problems: (1) Acute hepatitis Status: Acute (2) Epigastric pain Status: Acute (3) Generalized pruritus Status: Acute (4) Obstructive jaundice Status: Acute Assessment Assessment Problems Medical Problems: (1) Acute hepatitis Status: Acute (2) Epigastric pain Status: Acute (3) Generalized pruritus Status: Acute (4) Obstructive jaundice Status: Acute Problems: Obstructive jaundice due to Pancreatic cancer, adeno ca. PLAN: Labs good spoke with surgery PT/OT/rehab advancing diet. SNU screen . transfer when bed available Procedure Performed:05/08/19 whipple procedure (specifically: pyloric sparing, pancreaticogastrostomy), G- tube placement Plan Plan of Care Problems Medical Problems: (1) Acute hepatitis Status: Acute (2) Epigastric pain Status: Acute (3) Generalized pruritus Status: Acute (4) Obstructive jaundice Status: Acute Comment Review of Relevant I have reviewed the following items betty (where applicable) has been applied. Labs Laboratory Tests Test 05/20/19 07:30 Sodium Level 139 mmol/L (136-145) Potassium Level 4.1 mmol/L (3.5-5.1) Chloride Level 100 mmol/L (98-107) Carbon Dioxide Level 29 mmol/L (21-32) Anion Gap 10 (6-14) Blood Urea Nitrogen 20 mg/dL (7-20) Creatinine 1.3 mg/dL (0.6-1.0) Estimated GFR (Cockcroft-Gault) 39.3 Glucose Level 134 mg/dL (70-99) Calcium Level 8.7 mg/dL (8.5-10.1) Microbiology 04/26/19 Urine Culture - Final, Complete 04/26/19 Urine Culture Result 1 (QUEENIE) - Final, Complete Vitals/I & O Vital Sign - Last 24 Hours 05/19/19 05/19/19 05/19/19 05/19/19 11:00 11:27 11:44 13:07 Temp 98.4 98.4 Pulse 93 Resp 16 16 16 16 B/P (MAP) 112/69 (83) Pulse Ox 100 O2 Delivery Room Air Room Air Room Air Room Air 05/19/19 05/19/19 05/19/19 05/19/19 13:48 15:00 17:12 17:21 Temp 98.0 98.0 Pulse 86 Resp 16 16 16 16 B/P (MAP) 110/67 (81) Pulse Ox 95 O2 Delivery Room Air Room Air Room Air Room Air 05/19/19 05/19/19 05/19/19 05/19/19 18:21 19:00 20:00 21:40 Temp 97.9 97.9 Pulse 85 Resp 20 20 B/P (MAP) 110/65 (80) Pulse Ox 95 96 O2 Delivery Room Air Room Air Room Air Room Air 05/19/19 05/19/19 05/19/19 05/20/19 23:00 23:18 23:50 02:29 Temp 98.0 98.0 Pulse 87 Resp 20 20 20 20 B/P (MAP) 122/68 (86) Pulse Ox 94 O2 Delivery Room Air Room Air Room Air Room Air 05/20/19 05/20/19 05/20/19 05/20/19 03:00 07:00 07:35 08:54 Temp 98.4 98.1 98.4 98.1 Pulse 98 104 Resp 20 16 B/P (MAP) 124/79 (94) 127/76 (93) Pulse Ox 94 96 O2 Delivery Room Air Room Air Room Air Room Air Intake and Output 05/19/19 05/19/19 05/20/19 15:00 23:00 07:00 Intake Total 230 ml 400 ml Output Total 45 ml 50 ml Balance -45 ml 180 ml 400 ml BONNY BEST MD May 20, 2019 09:47
--- NOTE | 2019-05-20 09:50 | SNU/HH DC ---
DISCHARGE ORDERS DISCHARGE INFORMATION: DISCHARGE DATE: May 20, 2019 FINAL DIAGNOSIS Problems Medical Problems: (1) Acute hepatitis Status: Acute (2) Epigastric pain Status: Acute (3) Generalized pruritus Status: Acute (4) Obstructive jaundice Status: Acute CONDITION ON DISCHARGE: Stable CODE STATUS: Code Status: Full HALFWAY: SNF STAY <30 DAYS: Yes (gi soft diet) POST DISCHARGE ORDERS: ACTIVITY ORDERS: Activity as tolerated WEIGHT BEARING STATUS: As tolerated DIET AFTER DISCHARGE: WOUND/INCISION CARE: Reinforce dressing PRN OTHER ORDERS: drains?,PEG tube care flush with water 80 cc tid CHECKS AFTER DISCHARGE: COMMENTS: blood sugar daily FOLLOW-UP: PHYSICIAN FOLLOW-UP: surgical f/u dr Vee ADDITIONAL FOLLOW-UP: oncology f/u dr Wilkerson LAB ORDERS FOR FOLLOW-UP: cbc ,bmp weekly for 4 weeks ANTICOAGULATION F/U NEEDED: sq heparin for 2-3 weeks TREATMENT/EQUIPMENT ORDERS: ADAPTIVE EQUIPMENT NEEDED: Walker Physical Therapy For: Evalulation/Treatment Occupational Therapy For: Evaluation/Treatment DISCHARGE MEDICATIONS: Home Meds Active Scripts Pantoprazole Sodium (PANTOPRAZOLE SODIUM ) 40 Mg Tablet.dr, 40 MG PO DAILY for 30 for 30 Days, #30 TAB.SR Prov:BONNY BEST MD 05/19/19 Prochlorperazine Maleate (PROCHLORPERAZINE MALEATE) 10 Mg Tablet, 10 MG PO PRN Q6HRS PRN for NAUSEA/VOMITING for 30 Days, TAB Prov:BONNY BEST MD 05/19/19 Polyethylene Glycol 3350 (POLYETHYLENE GLYCOL 3350) 17 Gm Powd.pack, 30 GM PO DAILY for constipation MDD 17, #30 PKT Prov:BONNY BEST MD 05/19/19 Hydrocodone Bit/Acetaminophen (HYDROCODONE-APAP 10-325 ) 1 Tab Tablet, 1 TAB PO PRN Q4HRS PRN for MODERATE PAIN, SEVERE PAIN for 30 Days, TAB Prov:BONNY BEST MD 05/19/19 Cholestyramine/Aspartame (PREVALITE PACKET) 4 Gm Powd.pack, 4 GM PO BI D@1000,2200 for pancreas for 30 Days, PKT Prov:BONNY BEST MD 05/19/19 Heparin Sodium,Porcine (HEPARIN SODIUM) 5,000 Unit/1 Ml Vial, 5000 UNIT SQ Q12HR for dvt prevention for 15 Days, EACH Prov:BONNY BEST MD 05/19/19 Sertraline Hcl (ZOLOFT) 50 Mg Tablet, 50 MG PO DAILY, #30 BOTTLE Prov:SRINIVASA ABDULLAHI MD 04/17/15 Atorvastatin Calcium (LIPITOR) 10 Mg Tablet, 10 MG PO QHS, #30 BOTTLE Prov:SRINIVASA ABDULLAHI MD 04/17/15 Discontinued Scripts [Polyethylene Glycol 3350] 17 GM PACKET No Conflict Check, 17 GM PO DAILY, #30 BOTTLE Prov:SRINIVASA ABDULLAHI MD 04/17/15 [Oxycodone Hcl/Acetaminophen] 1 TAB TABLET No Conflict Check, 1 TAB PO PRN Q4HRS PRN for MILD PAIN, #40 BOTTLE Prov:SRINIVASA ABDULLAHI MD 04/17/15 Gabapentin (NEURONTIN ) 300 Mg Capsule, 300 MG PO TID, #90 BOTTLE Prov:SRINIVASA ABDULLAHI MD 04/17/15 [Amoxicillin/Potassium Clav] 1 TAB TABLET No Conflict Check, 1 TAB PO BID, #14 BOT Prov:SRINIVASA ABDULLAHI MD 04/17/15 [Amitriptyline Hcl] 50 MG TABLET No Conflict Check, 50 MG PO QHS Prov:SRINIVASA ABDULLAHI MD 04/17/15 BONNY BEST MD May 20, 2019 09:50
[2019-05-20] MEDS: HYDROcodone/APAP 10/325 1 TAB TABLET PO PRN (09:58)
--- NOTE | 2019-05-20 09:58 | PDOC ---
SURGICAL PROGRESS NOTE Subjective Pt without c/o, deborah slow diet, denies significant pain Vital Signs Vital Signs Date Time Temp Pulse Resp B/P (MAP) Pulse Ox O2 Delivery O2 Flow Rate FiO2 05/20/19 08:54 Room Air 05/20/19 07:00 98.1 104 16 127/76 (93) 96 98.1 I&O Intake and Output 05/20/19 07:00 Intake Total 630 ml Output Total 95 ml Balance 535 ml Intake Oral 630 ml Drainage Total 95 ml # Voids 3 # Bowel Movements 1 General: Alert, Oriented X3, Cooperative, No acute distress Abdomen: Soft, No tenderness, Other (incision healing nicely, MIRIAM drains with min serosang output, G-tube clamped) Labs Laboratory Tests Test 05/18/19 11:51 05/18/19 17:10 05/19/19 06:00 05/20/19 07:30 Glucose (Fingerstick) 125 mg/dL (70-99) 117 mg/dL (70-99) White Blood Count 11.2 x10^3/uL (4.0-11.0) Red Blood Count 2.71 x10^6/uL (3.50-5.40) Hemoglobin 8.2 g/dL (12.0-15.5) Hematocrit 25.0 % (36.0-47.0) Mean Corpuscular Volume 92 fL (79-100) Mean Corpuscular Hemoglobin 30 pg (25-35) Mean Corpuscular Hemoglobin Concent 33 g/dL (31-37) Red Cell Distribution Width 16.1 % (11.5-14.5) Platelet Count 632 x10^3/uL (140-400) Neutrophils (%) (Auto) 67 % (31-73) Lymphocytes (%) (Auto) 21 % (24-48) Monocytes (%) (Auto) 7 % (0-9) Eosinophils (%) (Auto) 4 % (0-3) Basophils (%) (Auto) 1 % (0-3) Neutrophils # (Auto) 7.5 x10^3/uL (1.8-7.7) Lymphocytes # (Auto) 2.4 x10^3/uL (1.0-4.8) Monocytes # (Auto) 0.8 x10^3/uL (0.0-1.1) Eosinophils # (Auto) 0.4 x10^3/uL (0.0-0.7) Basophils # (Auto) 0.1 x10^3/uL (0.0-0.2) Sodium Level 138 mmol/L (136-145) 139 mmol/L (136-145) Potassium Level 3.7 mmol/L (3.5-5.1) 4.1 mmol/L (3.5-5.1) Chloride Level 107 mmol/L (98-107) 100 mmol/L (98-107) Carbon Dioxide Level 28 mmol/L (21-32) 29 mmol/L (21-32) Anion Gap 3 (6-14) 10 (6-14) Blood Urea Nitrogen 17 mg/dL (7-20) 20 mg/dL (7-20) Creatinine 1.2 mg/dL (0.6-1.0) 1.3 mg/dL (0.6-1.0) Estimated GFR (Cockcroft-Gault) 43.1 39.3 Glucose Level 120 mg/dL (70-99) 134 mg/dL (70-99) Calcium Level 8.0 mg/dL (8.5-10.1) 8.7 mg/dL (8.5-10.1) Laboratory Tests Test 05/20/19 07:30 Sodium Level 139 mmol/L (136-145) Potassium Level 4.1 mmol/L (3.5-5.1) Chloride Level 100 mmol/L (98-107) Carbon Dioxide Level 29 mmol/L (21-32) Anion Gap 10 (6-14) Blood Urea Nitrogen 20 mg/dL (7-20) Creatinine 1.3 mg/dL (0.6-1.0) Estimated GFR (Cockcroft-Gault) 39.3 Glucose Level 134 mg/dL (70-99) Calcium Level 8.7 mg/dL (8.5-10.1) Problem List Problems Medical Problems: (1) Acute hepatitis Status: Acute (2) Epigastric pain Status: Acute (3) Generalized pruritus Status: Acute (4) Obstructive jaundice Status: Acute Assessment/Plan s/p whipple doing well OK to d/c MATT CALLEJAS MD May 20, 2019 09:58
--- NOTE | 2019-05-20 09:58 | PDOC ---
SURGICAL PROGRESS NOTE Subjective tolerating diet somewhat, low appetite, nausea at times Vital Signs Vital Signs Date Time Temp Pulse Resp B/P (MAP) Pulse Ox O2 Delivery O2 Flow Rate FiO2 05/20/19 08:54 Room Air 05/20/19 07:00 98.1 104 16 127/76 (93) 96 98.1 I&O Intake and Output 05/20/19 07:00 Intake Total 630 ml Output Total 95 ml Balance 535 ml Intake Oral 630 ml Drainage Total 95 ml # Voids 3 # Bowel Movements 1 General: Alert, Oriented X3, Cooperative, No acute distress Abdomen: Soft, Other (incision c/d/i, no erythema, drains serous, g tube clamped ) Labs Laboratory Tests Test 05/18/19 11:51 05/18/19 17:10 05/19/19 06:00 05/20/19 07:30 Glucose (Fingerstick) 125 mg/dL (70-99) 117 mg/dL (70-99) White Blood Count 11.2 x10^3/uL (4.0-11.0) Red Blood Count 2.71 x10^6/uL (3.50-5.40) Hemoglobin 8.2 g/dL (12.0-15.5) Hematocrit 25.0 % (36.0-47.0) Mean Corpuscular Volume 92 fL (79-100) Mean Corpuscular Hemoglobin 30 pg (25-35) Mean Corpuscular Hemoglobin Concent 33 g/dL (31-37) Red Cell Distribution Width 16.1 % (11.5-14.5) Platelet Count 632 x10^3/uL (140-400) Neutrophils (%) (Auto) 67 % (31-73) Lymphocytes (%) (Auto) 21 % (24-48) Monocytes (%) (Auto) 7 % (0-9) Eosinophils (%) (Auto) 4 % (0-3) Basophils (%) (Auto) 1 % (0-3) Neutrophils # (Auto) 7.5 x10^3/uL (1.8-7.7) Lymphocytes # (Auto) 2.4 x10^3/uL (1.0-4.8) Monocytes # (Auto) 0.8 x10^3/uL (0.0-1.1) Eosinophils # (Auto) 0.4 x10^3/uL (0.0-0.7) Basophils # (Auto) 0.1 x10^3/uL (0.0-0.2) Sodium Level 138 mmol/L (136-145) 139 mmol/L (136-145) Potassium Level 3.7 mmol/L (3.5-5.1) 4.1 mmol/L (3.5-5.1) Chloride Level 107 mmol/L (98-107) 100 mmol/L (98-107) Carbon Dioxide Level 28 mmol/L (21-32) 29 mmol/L (21-32) Anion Gap 3 (6-14) 10 (6-14) Blood Urea Nitrogen 17 mg/dL (7-20) 20 mg/dL (7-20) Creatinine 1.2 mg/dL (0.6-1.0) 1.3 mg/dL (0.6-1.0) Estimated GFR (Cockcroft-Gault) 43.1 39.3 Glucose Level 120 mg/dL (70-99) 134 mg/dL (70-99) Calcium Level 8.0 mg/dL (8.5-10.1) 8.7 mg/dL (8.5-10.1) Laboratory Tests Test 05/20/19 07:30 Sodium Level 139 mmol/L (136-145) Potassium Level 4.1 mmol/L (3.5-5.1) Chloride Level 100 mmol/L (98-107) Carbon Dioxide Level 29 mmol/L (21-32) Anion Gap 10 (6-14) Blood Urea Nitrogen 20 mg/dL (7-20) Creatinine 1.3 mg/dL (0.6-1.0) Estimated GFR (Cockcroft-Gault) 39.3 Glucose Level 134 mg/dL (70-99) Calcium Level 8.7 mg/dL (8.5-10.1) Problem List Problems Medical Problems: (1) Acute hepatitis Status: Acute (2) Epigastric pain Status: Acute (3) Generalized pruritus Status: Acute (4) Obstructive jaundice Status: Acute Assessment/Plan dc pending placement remove gerald prior to discharge dc with tom drains TRUNG RUSH APRN May 20, 2019 09:58
[2019-05-20] MEDS: CHOLESTYRAMINE/ASPARTAME 4 GM PACKET PO SCH (10:00)
[2019-05-20 11:00] VITALS: BP 120/73
--- NOTE | 2019-05-20 11:55 | PDOC ---
Subjective: Subjective: Hasn't started lunch yet but ate a little breakfast and drain removed. Supposed to DC today. Objective: Vital Signs: Vital Signs Date Time Temp Pulse Resp B/P (MAP) Pulse Ox O2 Delivery O2 Flow Rate FiO2 05/20/19 11:00 98.9 85 16 120/73 (89) 95 Room Air 98.9 Labs: Laboratory Tests Test 05/20/19 07:30 Sodium Level 139 mmol/L Potassium Level 4.1 mmol/L Chloride Level 100 mmol/L Carbon Dioxide Level 29 mmol/L Anion Gap 10 Blood Urea Nitrogen 20 mg/dL Creatinine 1.3 mg/dL Estimated GFR (Cockcroft-Gault) 39.3 Glucose Level 134 mg/dL Calcium Level 8.7 mg/dL PE: GEN: NAD, was asleep LUNGS: CTAB HEART: RRR ABD: soft NEURO/PSYCH: A & O �3 A/P: Cholangiocarcinoma s/p Whipple -- DC per primary. CORI PEDERSEN May 20, 2019 11:55
--- NOTE | 2019-05-20 13:12 | PDOC ---
PROGRESS NOTES Subjective Subjective HPI - f/u of T3 N1 M0, stage IIB Extrahepatic cholangiocarcinoma, status post Whipple surgery on 05/08/2019 ROS - no abd pain Objective Objective Vital Signs Date Time Temp Pulse Resp B/P (MAP) Pulse Ox O2 Delivery O2 Flow Rate FiO2 05/20/19 12:30 Room Air 05/20/19 11:00 98.9 85 16 120/73 (89) 95 98.9 05/18/19 01:55 2.0 Intake and Output 05/20/19 07:00 Intake Total 630 ml Output Total 95 ml Balance 535 ml Intake Oral 630 ml Drainage Total 95 ml # Voids 3 # Bowel Movements 1 Physical Exam Heart: Normal S1, Normal S2 General: Alert, Oriented X3 Lungs: Clear to auscultation Neuro: Normal speech Psych/Mental Status: Mental status NL Assessment Assessment Problems Medical Problems: (1) Acute hepatitis Status: Acute (2) Epigastric pain Status: Acute (3) Generalized pruritus Status: Acute (4) Obstructive jaundice Status: Acute IMPRESSION AND PLAN: 1. T3 N1 M0, stage IIB Extrahepatic cholangiocarcinoma, status post Whipple surgery on 05/08/2019. I discussed the diagnosis, staging and adjuvant chemotherapy options with the patient and her granddaughter. I would recommend to continue current postoperative care and followup with me in about 2-3 weeks to discuss adjuvant chemotherapy options. I would recommend adjuvant chemotherapy with Gemzar based regimen if her functional status is good. I d/w Dr Key I d/w multidisciplinary tumor conf 05/20/19. 2. Anemia postoperatively. Preop hemoglobin was normal. Hemoglobin is 8.4 on 05/14/2019. Continue to monitor. Hb stable at 8.4 on 05/17/19. No bleed. Comment Review of Relevant I have reviewed the following items betty (where applicable) has been applied. Labs Laboratory Tests Test 05/18/19 17:10 05/19/19 06:00 05/20/19 07:30 Glucose (Fingerstick) 117 mg/dL (70-99) White Blood Count 11.2 x10^3/uL (4.0-11.0) Red Blood Count 2.71 x10^6/uL (3.50-5.40) Hemoglobin 8.2 g/dL (12.0-15.5) Hematocrit 25.0 % (36.0-47.0) Mean Corpuscular Volume 92 fL (79-100) Mean Corpuscular Hemoglobin 30 pg (25-35) Mean Corpuscular Hemoglobin Concent 33 g/dL (31-37) Red Cell Distribution Width 16.1 % (11.5-14.5) Platelet Count 632 x10^3/uL (140-400) Neutrophils (%) (Auto) 67 % (31-73) Lymphocytes (%) (Auto) 21 % (24-48) Monocytes (%) (Auto) 7 % (0-9) Eosinophils (%) (Auto) 4 % (0-3) Basophils (%) (Auto) 1 % (0-3) Neutrophils # (Auto) 7.5 x10^3/uL (1.8-7.7) Lymphocytes # (Auto) 2.4 x10^3/uL (1.0-4.8) Monocytes # (Auto) 0.8 x10^3/uL (0.0-1.1) Eosinophils # (Auto) 0.4 x10^3/uL (0.0-0.7) Basophils # (Auto) 0.1 x10^3/uL (0.0-0.2) Sodium Level 138 mmol/L (136-145) 139 mmol/L (136-145) Potassium Level 3.7 mmol/L (3.5-5.1) 4.1 mmol/L (3.5-5.1) Chloride Level 107 mmol/L (98-107) 100 mmol/L (98-107) Carbon Dioxide Level 28 mmol/L (21-32) 29 mmol/L (21-32) Anion Gap 3 (6-14) 10 (6-14) Blood Urea Nitrogen 17 mg/dL (7-20) 20 mg/dL (7-20) Creatinine 1.2 mg/dL (0.6-1.0) 1.3 mg/dL (0.6-1.0) Estimated GFR (Cockcroft-Gault) 43.1 39.3 Glucose Level 120 mg/dL (70-99) 134 mg/dL (70-99) Calcium Level 8.0 mg/dL (8.5-10.1) 8.7 mg/dL (8.5-10.1) Laboratory Tests Test 05/20/19 07:30 Sodium Level 139 mmol/L (136-145) Potassium Level 4.1 mmol/L (3.5-5.1) Chloride Level 100 mmol/L (98-107) Carbon Dioxide Level 29 mmol/L (21-32) Anion Gap 10 (6-14) Blood Urea Nitrogen 20 mg/dL (7-20) Creatinine 1.3 mg/dL (0.6-1.0) Estimated GFR (Cockcroft-Gault) 39.3 Glucose Level 134 mg/dL (70-99) Calcium Level 8.7 mg/dL (8.5-10.1) Microbiology 04/26/19 Urine Culture - Final, Complete 04/26/19 Urine Culture Result 1 (QUEENIE) - Final, Complete Medications Current Medications Iohexol (Omnipaque 300 Mg/ml) 60 ml 1X ONCE IV Last administered on 04/26/19at 12:06; Start 04/26/19 at 12:30; Stop 04/26/19 at 12:31; Status DC Info (CONTRAST GIVEN -- Rx MONITORING) 1 each PRN DAILY PRN MC SEE COMMENTS; Start 04/26/19 at 12:00; Stop 04/28/19 at 11:59; Status DC Ondansetron HCl (Zofran) 4 mg PRN Q6HRS PRN IV NAUSEA/VOMITING Last administered on 04/29/19at 01:04; Start 04/26/19 at 12:30; Stop 04/29/19 at 04:56; Status DC Cholestyramine Resin (Questran Light) 4 gm BID@1000,2200 PO Last administered on 05/19/19at 10:32; Start 04/26/19 at 22:00 Hydroxyzine HCl (Atarax) 25 mg PRN Q6HRS PRN PO ITCHING Last administered on 05/06/19at 21:03; Start 04/26/19 at 12:30 Morphine Sulfate (Morphine Sulfate) 2 mg PRN Q6HRS PRN IV SEVERE PAIN 7-10; Start 04/26/19 at 12:30; Stop 04/26/19 at 12:42; Status DC Acetaminophen/ Hydrocodone Bitart (Lortab 5/325) 1 tab PRN Q6HRS PRN PO MILD PAIN / TEMP; Start 04/26/19 at 12:30; Stop 04/26/19 at 12:42; Status DC Gabapentin (Neurontin) 300 mg TID PO Last administered on 05/20/19 08:54; Start 04/26/19 at 14:00 Lorazepam (Ativan) 0.5 mg PRN BID PRN PO AGITATION Last administered on 05/19/19 23:50; Start 04/26/19 at 12:30 Sertraline HCl (Zoloft) 50 mg DAILY PO Last administered on 05/20/19 08:54; Start 04/27/19 at 09:00 Tramadol HCl (Ultram) 50 mg TID PO Last administered on 04/29/19 09:09; Start 04/26/19 at 14:00; Stop 04/29/19 at 10:09; Status DC Acetaminophen (Tylenol) 325 mg PRN Q6HRS PRN PO MILD PAIN / TEMP Last admini stered on 05/19/19 21:40; Start 04/26/19 at 12:30 Polyethylene Glycol (miraLAX PACKET) 17 gm DAILY PO Last administered on 05/18 08:44; Start 04/27/19 at 09:00 Magnesium Hydroxide (Milk Of Magnesia) 2,400 mg PRN DAILY PRN PO CONSTIPATION Last administered on 04/29/19 02:34; Start 04/26/19 at 12:30 Acetaminophen/ Hydrocodone Bitart (Lortab 5/325) 1 tab PRN Q4HRS PRN PO MODERATE PAIN Last administered on 05/16/19 14:39; Start 04/26/19 at 12:45; Stop 05/16/19 at 16:22; Status DC Morphine Sulfate (Morphine Sulfate) 1 mg PRN Q4HRS PRN IV SEVERE PAIN 7-10 Last administered on 04/29/19 01:11; Start 04/26/19 at 12:45; Stop 04/29/19 at 04:56; Status DC Levofloxacin/ Dextrose 100 ml @ 100 mls/hr 1X ONCE IV Last administered on 04/28/19 08:31; Start 04/28/19 at 07:15; Stop 04/28/19 at 08:14; Status DC Ringer's Solution 1,000 ml @ 75 mls/hr 1X ONCE IV Last administered on 04/28/19 14:43; Start 04/28/19 at 12:15; Stop 04/29/19 at 01:34; Status DC Iohexol (Omnipaque 300 Mg/ml) 100 ml STK-MED ONCE .ROUTE ; Start 04/28/19 at 13:24; Stop 04/28/19 at 13:25; Status DC Famotidine (Pepcid Vial) 20 mg STK-MED ONCE .ROUTE ; Start 04/28/19 at 14:12; Stop 04/28/19 at 14:13; Status DC Dexamethasone Sodium Phosphate (Decadron) 20 mg STK-MED ONCE .ROUTE ; Start 04/28/19 at 14:13; Stop 04/28/19 at 14:14; Status DC Lidocaine HCl (Lidocaine Pf 2% Vial) 5 ml STK-MED ONCE .ROUTE ; Start 04/28/19 at 15:00; Stop 04/28/19 at 15:01; Status DC Iohexol (Omnipaque 300 Mg/ml) 100 ml STK-MED ONCE IV Last administered on 04/28/19at 16:20; Start 04/28/19 at 16:20; Stop 04/28/19 at 16:48; Status DC Fentanyl Citrate (Fentanyl 2ml Vial) 25 mcg 1X ONCE IV Last administered on at 17:05; Start 04/28/19 at 17:00; Stop 04/28/19 at 17:01; Status DC Morphine Sulfate (Morphine Sulfate) 2 mg PRN Q4HRS PRN IV SEVERE PAIN 7-10; Start 04/29/19 at 05:00; Stop 05/08/19 at 08:25; Status DC Ondansetron HCl (Zofran) 8 mg PRN Q6HRS PRN IV NAUSEA/VOMITING, 1ST CHOICE Last administered on 05/03/19at 22:23; Start 04/29/19 at 05:00; Stop 05/12/19 at 14:03; Status DC Prochlorperazine Maleate (Compazine) 10 mg PRN Q6HRS PRN PO NAUSEA/VOMITING Last administered on 05/17/19at 20:00; Start 04/29/19 at 05:00 Tramadol HCl (Ultram) 50 mg QID PO Last administered on 05/20/19at 08:54; Start 04/29/19 at 13:00 Potassium Chloride/Dextrose/ Sod Cl 1,000 ml @ 75 mls/hr [id number] IV Last administered on 04/30/19at 02:53; Start 04/29/19 at 10:15; Stop 04/30/19 at 10:45; Status DC Amitriptyline HCl (Elavil) 25 mg QHS PO Last administered on 05/19/19at 21:40; Start 04/29/19 at 21:00 Phenylephrine HCl (PHENYLEPHRINE in 0.9% NACL PF) 1 mg STK-MED ONCE IV ; Start 04/28/19 at 14:00; Stop 04/29/19 at 13:10; Status DC Succinylcholine Chloride (Anectine) 200 mg STK-MED ONCE .ROUTE ; Start 04/28/19 at 14:00; Stop 04/29/19 at 13:10; Status DC Propofol (Diprivan) 200 mg STK-MED ONCE IV ; Start 04/28/19 at 14:00; Stop 04/29/19 at 13:10; Status DC Amino Acids/ Glycerin/ Electrolytes 1,000 ml @ 80 mls/hr [id number] IV Last administered on 05/09/19at 08:22; Start 04/30/19 at 10:45; Stop 05/09/19 at 21:59; Status DC Amlodipine Besylate (Norvasc) 5 mg DAILY PO Last administered on 05/05/19at 08:41; Start 05/01/19 at 13:00; Stop 05/05/19 at 10:06; Status DC Hydralazine HCl (Apresoline Inj) 10 mg PRN Q4HRS PRN IVP ELEVATED BP, SEE COMMENTS; Start 05/01/19 at 12:45 Amlodipine Besylate (Norvasc) 2.5 mg DAILY PO Last administered on 05/06/19at 09:28; Start 05/05/19 at 10:30; Stop 05/06/19 at 10:03; Status DC Cefoxitin Sodium (Mefoxin) 2 gm 1X PREOP IVP ; Start 05/08/19 at 08:00; Stop 05/08/19 at 10:15; Status DC Ondansetron HCl (Zofran) 4 mg PRN Q6HRS PRN IV NAUSEA/VOMITING; Start 05/08/19 at 07:00; Stop 05/08/19 at 20:00; Status DC Fentanyl Citrate (Fentanyl 2ml Vial) 25 mcg PRN Q5MIN PRN IV MILD PAIN 1-3 Last administered on 05/08/19at 15:37; Start 05/08/19 at 07:00; Stop 05/08/19 at 20:00; Status DC Fentanyl Citrate (Fentanyl 2ml Vial) 50 mcg PRN Q5MIN PRN IV MODERATE TO SEVERE PAIN; Start 05/08/19 at 07:00; Stop 05/08/19 at 20:00; Status DC Morphine Sulfate (Morphine Sulfate) 1 mg PRN Q10MIN PRN IV SEVERE PAIN 7-10; Start 05/08/19 at 07:00; Stop 05/08/19 at 20:00; Status DC Ringer's Solution 1,000 ml @ 30 mls/hr Q24H IV Last administered on 05/08/19at 07:28; Start 05/08/19 at 07:00; Stop 05/08/19 at 18:59; Status DC Hydromorphone HCl (Dilaudid) 0.5 mg PRN Q10MIN PRN IV SEV PAIN, Second choice; Start 05/08/19 at 07:00; Stop 05/08/19 at 20:00; Status DC Prochlorperazine Edisylate (Compazine) 5 mg PACU PRN PRN IV NAUSEA, MRX1 Last administered on 05/08/19at 15:37; Start 05/08/19 at 07:00; Stop 05/08/19 at 20:00; Status DC Fentanyl Citrate (Fentanyl 2ml Vial) 100 mcg STK-MED ONCE .ROUTE ; Start 05/08/19 at 07:06; Stop 05/08/19 at 07:07; Status DC Glycopyrrolate (Robinul) 1 mg STK-MED ONCE .ROUTE ; Start 05/08/19 at 07:07; Stop 05/08/19 at 07:07; Status DC Rocuronium [place] (Zemuron) 100 mg STK-MED ONCE .ROUTE ; Start 05/08/19 at 07:08; Stop 05/08/19 at 07:08; Status DC Neostigmine Methylsulfate (Neostigmine Methylsulfate) 5 mg STK-MED ONCE .ROUTE ; Start 05/08/19 at 07:08; Stop 05/08/19 at 07:08; Status DC Propofol 20 ml @ As Directed STK-MED ONCE IV ; Start 05/08/19 at 07:09; Stop 05/08/19 at 07:09; Status DC Lidocaine HCl (Lidocaine Pf 2% Vial) 5 ml STK-MED ONCE .ROUTE ; Start 05/08/19 at 07:09; Stop 05/08/19 at 07:09; Status DC Ondansetron HCl (Zofran) 4 mg STK-MED ONCE .ROUTE ; Start 05/08/19 at 07:09; Stop 05/08/19 at 07:09; Status DC Dexamethasone Sodium Phosphate (Decadron) 4 mg STK-MED ONCE .ROUTE ; Start 05/08/19 at 07:09; Stop 05/08/19 at 07:09; Status DC Phenylephrine HCl (Ricco-Synephrine Inj) 10 mg STK-MED ONCE .ROUTE ; Start 05/08/19 at 07:12; Stop 05/08/19 at 07:12; Status DC Sodium Chloride 39.95 ml/ Hydromorphone HCl 0.5 mg/ Ropivacaine 10 ml/ Epidural Dosage Infused (Pha) 50 ml @ 8 mls/hr CONT PRN EPID PER PROTOCOL Last administered on 05/13/19at 03:29; Start 05/08/19 at 09:00; Stop 05/16/19 at 08:33; Status DC Fentanyl Citrate (Fentanyl 2ml Vial) 100 mcg STK-MED ONCE .ROUTE ; Start 05/08/19 at 08:25; Stop 05/08/19 at 08:25; Status DC Ephedrine Sulfate (ePHEDrine PF IN SALINE SYRINGE) 50 mg STK-MED ONCE IV ; Start 05/08/19 at 08:37; Stop 05/08/19 at 08:37; Status DC Cefoxitin Sodium (Mefoxin) 2 gm 1X PREOP IVP ; Start 05/08/19 at 10:15; Stop 05/12/19 at 12:54; Status DC Cefoxitin Sodium (Mefoxin) 2 gm 1X ONCE IVP Last administered on 05/08/19at 12:31; Start 05/08/19 at 12:30; Stop 05/08/19 at 12:31; Status DC Cefoxitin Sodium (Mefoxin) 1 gm STK-MED ONCE IVP ; Start 05/08/19 at 13:51; Stop 05/08/19 at 13:52; Status DC Famotidine (Pepcid Vial) 20 mg DAILY IVP Last administered on 05/09/19 08:22; Start 05/08/19 at 21:00; Stop 05/09/19 at 16:20; Status DC Heparin Sodium (Porcine) (Heparin Sodium) 5,000 unit Q12HR SQ Last administered on 05/20/19 08:54; Start 05/08/19 at 14:30 Sodium Chloride (Normal Saline Flush) 3 ml QSHIFT PRN IV AFTER MEDS AND BLOOD DRAWS; Start 05/08/19 at 14:30 Ringer's Solution 1,000 ml @ 100 mls/hr Q10H IV Last administered on 05/09/19at 18:58; Start 05/08/19 at 14:18; Stop 05/09/19 at 19:29; Status DC Naloxone HCl (Narcan) 0.4 mg PRN Q2MIN PRN IV SEE INSTRUCTIONS; Start 05/08/19 at 14:30 Sodium Chloride 1,000 ml @ 25 mls/hr Q24H IV Last administered on 05/15/19 13:29; Start 05/08/19 at 14:18; Stop 05/16/19 at 08:33; Status DC Ondansetron HCl (Zofran) 4 mg PRN Q6HRS PRN IV NAUESA, 1ST CHOICE Last administered on 05/18/19at 14:47; Start 05/08/19 at 14:30 Fentanyl Citrate (Fentanyl 2ml Vial) 100 mcg STK-MED ONCE .ROUTE ; Start 05/08/19 at 14:29; Stop 05/08/19 at 14:29; Status DC Sevoflurane (Ultane) 90 ml STK-MED ONCE IH ; Start 05/08/19 at 14:44; Stop 05/08/19 at 14:44; Status DC Norepinephrine Bitartrate 250 ml @ 13.438 mls/ hr CONT PRN IV SEE I/O RECORD Last administered on 05/09/19at 23:49; Start 05/08/19 at 18:45; Stop 05/12/19 at 14:03; Status DC Ringer's Solution 500 ml @ 500 mls/hr 1X ONCE IV Last administered on 05/08/19at 19:22; Start 05/08/19 at 18:45; Stop 05/08/19 at 19:44; Status DC Ringer's Solution 500 ml @ 500 mls/hr 1X ONCE IV Last administered on 05/09/19at 03:39; Start 05/09/19 at 03:30; Stop 05/09/19 at 04:29; Status DC Ringer's Solution 500 ml @ 500 mls/hr 1X ONCE IV Last administered on 05/09/19at 10:14; Start 05/09/19 at 08:15; Stop 05/09/19 at 09:14; Status DC Info (Tpn Per Pharmacy) 1 each PRN DAILY PRN MC SEE COMMENTS Last administered on 05/15/19at 13:04; Start 05/09/19 at 13:00; Stop 05/16/19 at 08:33; Status DC Sodium Acetate 90 meq/Potassium Chloride 50 meq/ Potassium Phosphate 13.6 mmol/Magnesium Sulfate 8 meq/ Calcium Gluconate 10 meq/ Multivitamins 10 ml/Chromium/ Copper/Manganese/ Seleni/Zn 1 ml/ Total Parenteral Nutrition/Amino Acids/Dextrose/ Fat Emulsion Intravenous 1,512 ml @ 63 mls/hr TPN CONT IV Last administered on 05/09/19at 21:00; Start 05/09/19 at 22:00; Stop 05/10/19 at 21:59; Status DC Info (Tpn Per Pharmacy) 1 each PRN DAILY PRN MC SEE COMMENTS; Start 05/09/19 at 14:30; Status UNV Pantoprazole Sodium (PROTONIX VIAL for IV PUSH) 40 mg [id number] IVP Last administered on 05/17/19at 06:06; Start 05/09/19 at 18:00; Stop 05/17/19 at 14:22; Status DC Albumin Human 500 ml @ 125 mls/hr 1X ONCE IV Last administered on 05/09/19at 17:33; Start 05/09/19 at 17:30; Stop 05/09/19 at 21:29; Status DC Diphenhydramine HCl (Benadryl) 12.5 mg PRN Q6HRS PRN IVP ITCHING Last administered on 05/18/19at 21:37; Start 05/09/19 at 18:30 Acetaminophen (Tylenol Supp) 650 mg PRN Q8HRS PRN [place] MILD PAIN / TEMP; Start 05/09/19 at 18:30 Potassium Phosphate 13.6 mmol/Dextrose 104.5333 ml @ 52.267 m... Q2H IV Last administered on 05/10/19at 11:28; Start 05/10/19 at 09:00; Stop 05/10/19 at 12:59; Status DC Sodium Acetate 90 meq/Potassium Chloride 50 meq/ Potassium Phosphate 18 mmol/ Magnesium Sulfate 10 meq/Calcium Gluconate 10 meq/ Multivitamins 10 ml/Chromium/ Copper/Manganese/ Seleni/Zn 1 ml/ Total Parenteral Nutrition/Amino Acids/Dextrose/ Fat Emulsion Intravenous 1,512 ml @ 63 mls/hr TPN CONT IV Last administered on 05/10/19at 21:32; Start 05/10/19 at 22:00; Stop 05/11/19 at 21:59; Status DC Potassium Phosphate 13.6 mmol/Dextrose 104.5333 ml @ 52.267 m... Q2H IV Last administered on 05/11/19at 11:37; Start 05/11/19 at 11:30; Stop 05/11/19 at 13:29; Status DC Sodium Acetate 90 meq/Potassium Chloride 50 meq/ Potassium Phosphate 24 mmol/ Magnesium Sulfate 15 meq/Calcium Gluconate 10 meq/ Multivitamins 10 ml/Chromium/ Copper/Manganese/ Seleni/Zn 1 ml/ Total Parenteral Nutrition/Amino A cids/Dextrose/ Fat Emulsion Intravenous 1,512 ml @ 63 mls/hr TPN CONT IV Last administered on 05/11/19at 22:40; Start 05/11/19 at 22:00; Stop 05/12/19 at 21:59; Status DC Insulin Human Lispro (HumaLOG) 0-5 UNITS TIDWMEALS SQ Last administered on 05/17/19at 08:42; Start 05/11/19 at 12:00; Stop 05/18/19 at 12:33; Status DC Dextrose (Dextrose 50%-Water Syringe) 12.5 gm PRN Q15MIN PRN IV SEE COMMENTS; Start 05/11/19 at 11:30; Stop 05/16/19 at 08:33; Status DC Dextrose 250 ml PRN Q15MIN PRN IV SEE COMMENTS; Start 05/11/19 at 11:30; Stop 05/18/19 at 12:33; Status DC Sodium Acetate 90 meq/Potassium Chloride 50 meq/ Potassium Phosphate 24 mmol/ Magnesium Sulfate 18 meq/Calcium Gluconate 10 meq/ Multivitamins 10 ml/Chromium/ Copper/Manganese/ Seleni/Zn 1 ml/ Insulin Human Regular 7 unit/ Total Parenteral Nutrition/Amino Acids/Dextrose/ Fat Emulsion Intravenous 1,512 ml @ 63 mls/hr TPN CONT IV Last administered on 05/12/19at 22:28; Start 05/12/19 at 22:00; Stop 05/13/19 at 21:59; Status DC Naloxone HCl (Narcan) 0.4 mg PRN Q2MIN PRN IV SEE INSTRUCTIONS; Start 05/13/19 at 09:15; Status UNV Sodium Chloride 1,000 ml @ 25 mls/hr Q24H IV ; Start 05/13/19 at 09:06; Status UNV Hydromorphone HCl 30 ml @ 0 mls/hr CONT PRN PRN IV PER PROTOCOL Last administered on 05/15/19at 16:42; Start 05/13/19 at 09:30; Stop 05/16/19 at 08:33; Status DC Sodium Acetate 90 meq/Potassium Chloride 30 meq/ Potassium Phosphate 24 mmol/ Magnesium Sulfate 18 meq/Calcium Gluconate 10 meq/ Multivitamins 10 ml/Chromium/ Copper/Manganese/ Seleni/Zn 1 ml/ Insulin Human Regular 7 unit/ Total Parenteral Nutrition/Amino Acids/Dextrose/ Fat Emulsion Intravenous 1,512 ml @ 63 mls/hr TPN CONT IV Last administered on 05/13/19at 22:07; Start 05/13/19 at 22:00; Stop 05/14/19 at 21:59; Status DC Hydromorphone HCl (Dilaudid Standard PRACTICING MD ANESTHESIOLOGIST) 12 mg STK-MED ONCE IV ; Start 05/13/19 at 09:47; Stop 05/14/19 at 08:59; Status DC Sodium Acetate 90 meq/Potassium Chloride 30 meq/ Potassium Phosphate 24 mmol/ Magnesium Sulfate 18 meq/Calcium Gluconate 10 meq/ Multivitamins 10 ml/Chromium/ Copper/Manganese/ Seleni/Zn 1 ml/ Insulin Human Regular 7 unit/ Total Parenteral Nutrition/Amino Acids/Dextrose/ Fat Emulsion Intravenous 1,512 ml @ 63 mls/hr TPN CONT IV Last administered on 05/14/19at 22:18; Start 05/14/19 at 22:00; Stop 05/15/19 at 21:59; Status DC Hydromorphone HCl (Dilaudid Standard PRACTICING MD ANESTHESIOLOGIST) 12 mg STK-MED ONCE IV ; Start 05/14/19 at 13:41; Stop 05/15/19 at 10:40; Status DC Sodium Acetate 90 meq/Potassium Chloride 30 meq/ Potassium Phosphate 24 mmol/ Magnesium Sulfate 18 meq/Calcium Gluconate 10 meq/ Multivitamins 10 ml/Chromium/ Copper/Manganese/ Seleni/Zn 1 ml/ Insulin Human Regular 7 unit/ Total Parenteral Nutrition/Amino Acids/Dextrose/ Fat Emulsion Intravenous 1,512 ml @ 63 mls/hr TPN CONT IV Last administered on 05/15/19at 22:07; Start 05/15/19 at 22:00; Stop 05/16/19 at 21:59; Status DC Hydromorphone HCl (Dilaudid Standard PRACTICING MD ANESTHESIOLOGIST) 12 mg STK-MED ONCE IV ; Start 05/15/19 at 16:18; Stop 05/16/19 at 11:57; Status DC Sodium Acetate 90 meq/Potassium Chloride 30 meq/ Potassium Phosphate 24 mmol/ Magnesium Sulfate 18 meq/Calcium Gluconate 10 meq/ Multivitamins 10 ml/Chromium/ Copper/Manganese/ Seleni/Zn 1 ml/ Insulin Human Regular 12 unit/ Total Parenteral Nutrition/Amino Acids/Dextrose/ Fat Emulsion Intravenous 1,512 ml @ 63 mls/hr TPN CONT IV ; Start 05/16/19 at 22:00; Stop 05/16/19 at 14:11; Status DC Acetaminophen/ Hydrocodone Bitart (Lortab 10/325) 1 tab PRN Q4HRS PRN PO MODERATE PAIN, SEVERE PAIN Last administered on 05/20/19at 10:00; Start 05/16/19 at 16:30 Hydromorphone HCl (Dilaudid) 1 mg PRN Q4HRS PRN IV SEVERE PAIN 7-10; Start 05/16/19 at 16:30; Stop 05/16/19 at 16:23; Status DC Hydromorphone HCl (Dilaudid) 0.1 mg PRN Q4HRS PRN IVP PAIN Last administered on 05/19/19at 00:42; Start 05/16/19 at 16:30 Pantoprazole Sodium (Protonix) 40 mg [id number] PO Last administered on 05/20/19at 06:02; Start 05/17/19 at 18:00 Potassium Bicarbonate (Potassium Effervescent Tablet) 10 meq 1X ONCE PO Last administered on 05/18/19at 13:27; Start 05/18/19 at 13:00; Stop 05/18/19 at 13:01; Status DC Active Scripts Active Pantoprazole Sodium (Pantoprazole Sodium) 40 Mg Tablet.dr 40 Mg PO DAILY 30 Days Prochlorperazine Maleate 10 Mg Tablet 10 Mg PO PRN Q6HRS PRN 30 Days Polyethylene Glycol 3350 17 Gm Powd.pack 30 Gm PO DAILY MDD 17 Hydrocodone-Apap 10-325 (Hydrocodone Bit/Acetaminophen) 1 Tab Tablet 1 Tab PO PRN Q4HRS PRN 30 Days Prevalite Packet (Cholestyramine/Aspartame) 4 Gm Powd.pack 4 Gm PO BID@1000,2200 30 Days Heparin Sodium (Heparin Sodium,Porcine) 5,000 Unit/1 Ml Vial 5,000 Unit SQ Q12HR 15 Days Zoloft (Sertraline Hcl) 50 Mg Tablet 50 Mg PO DAILY Lipitor (Atorvastatin Calcium) 10 Mg Tablet 10 Mg PO QHS Vitals/I & O Vital Sign - Last 24 Hours 05/19/19 05/19/19 05/19/19 05/19/19 13:48 15:00 17:12 17:21 Temp 98.0 98.0 Pulse 86 Resp 16 16 16 16 B/P (MAP) 110/67 (81) Pulse Ox 95 O2 Delivery Room Air Room Air Room Air Room Air 05/19/19 05/19/19 05/19/19 05/19/19 18:21 19:00 20:00 21:40 Temp 97.9 97.9 Pulse 85 Resp 20 20 B/P (MAP) 110/65 (80) Pulse Ox 95 96 O2 Delivery Room Air Room Air Room Air Room Air 05/19/19 05/19/19 05/19/19 05/20/19 23:00 23:18 23:50 02:29 Temp 98.0 98.0 Pulse 87 Resp 20 20 20 20 B/P (MAP) 122/68 (86) Pulse Ox 94 O2 Delivery Room Air Room Air Room Air Room Air 05/20/19 05/20/19 05/20/19 05/20/19 03:00 07:00 07:35 08:54 Temp 98.4 98.1 98.4 98.1 Pulse 98 104 Resp 20 16 B/P (MAP) 124/79 (94) 127/76 (93) Pulse Ox 94 96 O2 Delivery Room Air Room Air Room Air Room Air 05/20/19 05/20/19 05/20/19 05/20/19 10:00 10:00 11:00 12:30 Temp 98.9 98.9 Pulse 85 Resp 16 B/P (MAP) 120/73 (89) Pulse Ox 95 O2 Delivery Room Air Room Air Room Air Room Air Intake and Output 05/19/19 05/19/19 05/20/19 15:00 23:00 07:00 Intake Total 230 ml 400 ml Output Total 45 ml 50 ml Balance -45 ml 180 ml 400 ml GILBERT LÓPEZ MD May 20, 2019 13:12
--- NOTE | 2019-05-20 13:46 | NUR ---
SS following up with discharge planning. Insurance authorization received for [facility], ; fax [phone]. Discharge orders phoned and faxed to [facility]. Pt will discharge today and go to [facility] via wheelchair. [facility] to notify SS with transport time. Pt, pt's family, and pt's RN notified.
--- NOTE | 2019-05-20 14:04 | NUR ---
SS following up with discharge planning. [facility] reported that pt will discharge between 1700 and 1730. Pt and pt's family notified.
[2019-05-20 15:00] VITALS: BP 105/69
--- NOTE | 2019-05-20 17:36 | NUR ---
Pt. tranferred to [facility] via transportation service. [place]. luis antonio Kelley in tact, wiliam lamas and jorge in tact.
== END 2019-05-20 10:05 | DRG 405 ==
LOC: ER 10:18 → 6 SOUTH 12:54 → 5 SOUTH 05-03 21:00 → 1 WEST ICU 05-08 14:10 → 4 NORTH 05-11 20:21
PROVIDERS: ADMIT Internal Medicine; ATTEND Internal Medicine
PROC: 0F798ZZ Dilation of Common Bile Duct, Via Natural or Artificial Opening Endoscopic (ICD-10-PCS; 2019-04-28)
PROC: 0FD98ZX Extraction of Common Bile Duct, Via Natural or Artificial Opening Endoscopic, Diagnostic (ICD-10-PCS; 2019-04-28)
PROC: 0DH63UZ Insertion of Feeding Device into Stomach, Percutaneous Approach (ICD-10-PCS; 2019-05-08)
PROC: 0DB90ZZ Excision of Duodenum, Open Approach (ICD-10-PCS; 2019-05-08)
PROC: 0FBG0ZZ Excision of Pancreas, Open Approach (ICD-10-PCS; principal; 2019-05-08 08:00)
PROC: 02HV33Z Insertion of Infusion Device into Superior Vena Cava, Percutaneous Approach (ICD-10-PCS; 2019-05-09)
PROC: B548ZZA Ultrasonography of Superior Vena Cava, Guidance (ICD-10-PCS; 2019-05-09)
DX: C22.1 Intrahepatic bile duct carcinoma (principal); K83.1 Obstruction of bile duct; N17.0 Acute kidney failure with tubular necrosis; B17.9 Acute viral hepatitis, unspecified; C25.9 Malignant neoplasm of pancreas, unspecified; D62 Acute posthemorrhagic anemia; E78.00 Pure hypercholesterolemia, unspecified; K57.10 Diverticulosis of small intestine without perforation or abscess without bleeding; N18.9 Chronic kidney disease, unspecified; I12.9 Hypertensive chronic kidney disease with stage 1 through stage 4 chronic kidney disease, or unspecified chronic kidney disease; E78.5 Hyperlipidemia, unspecified; G47.00 Insomnia, unspecified; M79.7 Fibromyalgia; Z80.7 Family history of other malignant neoplasms of lymphoid, hematopoietic and related tissues; Z82.49 Family history of ischemic heart disease and other diseases of the circulatory system; Z85.09 Personal history of malignant neoplasm of other digestive organs; Z90.710 Acquired absence of both cervix and uterus; Z95.0 Presence of cardiac pacemaker; Z85.05 Personal history of malignant neoplasm of liver; F32.9 Major depressive disorder, single episode, unspecified; F41.9 Anxiety disorder, unspecified; M19.90 Unspecified osteoarthritis, unspecified site; Z88.0 Allergy status to penicillin; Z88.2 Allergy status to sulfonamides; Z88.8 Allergy status to other drugs, medicaments and biological substances; Z79.899 Other long term (current) drug therapy
CPT/HCPCS: 36415; 36556; 43261; 43262; 43264; 43277; 71045; 74018; 74177; 74181; 74330; 76705; 76937; 80048; 80053; 80076; 81001; 82140; 82150; 82378; 82962; 83690; 83735; 84100; 84478; 85025; 85610; 85730; 86301; 86850; 86900; 86901; 87086; 88104; 88112; 88305; 88307; 88309; 88331; 93005; 93306; A7015; C1726; C1757; C1892; C9113; J0171; J0330; J0694; J0780; J1100; J1170; J1200; J1644; J1815; J1956; J2001; J2270; J2370; J2405; J2704; J2710; J2795; J3010; J3490; J7030; J7120; P9045; Q0164; Q9967; 97110; 97116; 97530; 97535; 99285-25; G0378

== ENCOUNTER → 2019-07-07 | Outpatient (CLI) | payer OTHER ==
[~2019-07-07] MED LIST changes: +CHOL4POW3 PO; +HEPA50003 SQ; +HYDR-2769 PO; +PANT40TA77 PO; +POLY17PO28 PO; +PROC5TAB14 PO
--- NOTE | 2019-07-07 16:52 | RAD ---
Noncontrast CT scan of the chest without comparison for cholangiocarcinoma. TECHNIQUE: Contiguous helical axial 5 mm images are obtained from the thoracic inlet to the base of the diaphragm. No IV contrast was administered. Sagittal and coronal reformations are evaluated. FINDINGS: In the lingula, there is a small 6 mm parenchymal opacity with irregular margins, likely a tiny region of atelectasis or infiltrate. No suspicious nodules or masses are identified. Central airways are patent. Heart size within normal limits. No suspicious mediastinal, hilar, or axillary lymphadenopathy. There is air throughout the biliary tree of the left lobe of the liver. Stomach is distended with fluid. Evaluation of the upper abdominal organs is limited by lack of IV contrast. There are no suspicious osteoblastic or osteolytic bone lesions. There is mild generalized increase in bone density diffusely, which may be idiopathic and benign, but can be seen with other conditions including renal osteodystrophy, myeloproliferative disorders, or mastocytosis. Impression: 1. 6 mm parenchymal opacity in the left lung base, with irregular margins, most likely a tiny region of atelectasis or infiltrate. Consider follow-up study to ensure resolution in 6 months. 2. No evidence of metastatic disease related the patient's cholangiocarcinoma. 3. Subtle generalized increase in bone mineral density with no suspicious osteoblastic or osteolytic lesion and no focal changes. Findings are most likely idiopathic and benign, however other systemic conditions such as renal osteodystrophy, myeloproliferative disorders, or mastocytosis could have a similar appearance. Electronically signed by: Lamont Hayden MD (07/07/2019 4:49 PM) [facility] PQRS Compliance Statement: One or more of the following individualized dose reduction techniques were utilized for this examination: 1. Automated exposure control 2. Adjustment of the mA and/or kV according to patient size 3. Use of iterative reconstruction technique
== END | disposition home or self-care (01) ==
LOC: CT 09:22
PROVIDERS: ATTEND Internal Medicine Hematology & Oncology
DX: C22.1 Intrahepatic bile duct carcinoma (principal); K31.89 Other diseases of stomach and duodenum; Z88.1 Allergy status to other antibiotic agents; Z88.8 Allergy status to other drugs, medicaments and biological substances
CPT/HCPCS: 71250

== ENCOUNTER 2019-10-01 13:24 | Emergency (ER) | payer MEDICARE, OTHER ==
[~2019-10-01] VITALS: Ht 157.5 cm; Wt 74.4 kg
[~2019-10-01 13:24] MED LIST changes: +SIMV10TA15 PO; -SIMV10TA3 PO
[2019-10-01] MEDS ORDERED: LIDOCAINE 1% Multi-Dose 20 ML VIAL. INJ ONE (13:45)
[2019-10-01] MEDS ORDERED: fentaNYL PF VIAL 100 MCG/2 ML VIAL IVP ONE (13:45)
[2019-10-01] MEDS ORDERED: ONDANSETRON PF 4 MG/2 ML VIAL. IV ONE (13:45)
--- NOTE | 2019-10-01 13:53 | PHYS DOC ---
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 Patient denies other injuries, nausea and vomiting, chest pain, focal neuro deficit. Patient rated her pain 6/10 and was able to walk to emergency room. Patient is up-to-date with tetanus immunization. Review of Systems Review of Systems Constitutional: Denies fever or chills [] Eyes: Denies change in visual acuity, redness, or eye pain [] HENT: Denies nasal congestion or sore throat [] Respiratory: Denies cough or shortness of breath [] Cardiovascular: No additional information not addressed in HPI [] GI: Denies abdominal pain, nausea, vomiting, bloody stools or diarrhea [] : Denies dysuria or hematuria [] Musculoskeletal: Denies back pain or joint pain [] Integument: Denies rash or skin lesions [] Neurologic: Reports headache, denies focal weakness or sensory changes [] Endocrine: Denies polyuria or polydipsia [] All other systems were reviewed and found to be within normal limits, except as documented in this note. Current Medications Current Medications Current Medications Medications (Trade) Dose Ordered Sig/Meka Start Time Stop Time Status Last Admin Dose Admin Fentanyl Citrate (Fentanyl 2ml Vial) 50 mcg 1X ONCE 10/01/19 13:45 10/01/19 13:58 DC 10/01/19 14:05 50 MCG Lidocaine HCl (Lidocaine 1% 20ml Vial) 20 ml 1X ONCE 10/01/19 13:45 10/01/19 13:58 DC 10/01/19 14:05 20 ML Lorazepam (Ativan Inj) 0.5 mg 1X ONCE 10/01/19 15:15 10/01/19 15:16 DC 10/01/19 15:08 0.5 MG Ondansetron HCl (Zofran) 4 mg 1X ONCE 10/01/19 13:45 10/01/19 13:58 DC 10/01/19 14:06 4 MG Allergies Allergies Allergies Coded Allergies Type Severity Reaction Last Updated Verified Penicillins Allergy Intermediate 05/08/19 Yes Sulfa (Sulfonamide Antibiotics) Allergy Intermediate Hives. 05/08/19 Yes lisinopril Allergy Intermediate 05/08/19 Yes Physical Exam Physical Exam Constitutional: Well developed, mild distress, non-toxic appearance. [] HENT: Normocephalic, 7 cm satellite laceration of right forehead with moderate bleeding, bilateral external ears normal, oropharynx moist, no oral exudates, nose normal. [] Eyes: PERRLA, EOMI, conjunctiva normal, no discharge. [] Neck: Normal range of motion, no tenderness, supple, no stridor. [] Cardiovascular:Heart rate regular rhythm, no murmur [] Lungs & Thorax: Bilateral breath sounds clear to auscultation [] Abdomen: Bowel sounds normal, soft, no tenderness, no masses, no pulsatile masses. [] Skin: Warm, dry, no erythema, no rash. [] Back: No tenderness, no CVA tenderness. [] Extremities: No tenderness, no cyanosis, no clubbing, ROM intact, no edema. [] Neurologic: Alert and oriented X 3, normal motor function, normal sensory f unction, no focal deficits noted. [] Psychologic: Affect normal, judgement normal, mood normal. [] Current Patient Data Vital Signs Vital Signs Date Time Temp Pulse Resp B/P (MAP) Pulse Ox O2 Delivery O2 Flow Rate FiO2 10/01/19 14:05 16 99 Room Air 10/01/19 13:30 98.4 92 160/86 (110) 98.4 Lab Values Laboratory Tests Test 10/01/19 13:45 White Blood Count 6.0 x10^3/uL (4.0-11.0) Red Blood Count 3.49 x10^6/uL (3.50-5.40) L Hemoglobin 9.5 g/dL (12.0-15.5) L Hematocrit 30.0 % (36.0-47.0) L Mean Corpuscular Volume 86 fL (79-100) Mean Corpuscular Hemoglobin 27 pg (25-35) Mean Corpuscular Hemoglobin Concent 32 g/dL (31-37) Red Cell Distribution Width 21.7 % (11.5-14.5) H Platelet Count 309 x10^3/uL (140-400) Neutrophils (%) (Auto) 54 % (31-73) Lymphocytes (%) (Auto) 32 % (24-48) Monocytes (%) (Auto) 8 % (0-9) Eosinophils (%) (Auto) 6 % (0-3) H Basophils (%) (Auto) 1 % (0-3) Neutrophils # (Auto) 3.2 x10^3/uL (1.8-7.7) Lymphocytes # (Auto) 1.9 x10^3/uL (1.0-4.8) Monocytes # (Auto) 0.5 x10^3/uL (0.0-1.1) Eosinophils # (Auto) 0.3 x10^3/uL (0.0-0.7) Basophils # (Auto) 0.0 x10^3/uL (0.0-0.2) Platelet Estimate Pending Prothrombin Time 15.0 SEC (11.7-14.0) H Prothrombin Time INR 1.2 (0.8-1.1) H Sodium Level 139 mmol/L (136-145) Potassium Level 3.7 mmol/L (3.5-5.1) Chloride Level 104 mmol/L (98-107) Carbon Dioxide Level 26 mmol/L (21-32) Anion Gap 9 (6-14) Blood Urea Nitrogen 11 mg/dL (7-20) Creatinine 0.9 mg/dL (0.6-1.0) Estimated GFR (Cockcroft-Gault) 60.1 BUN/Creatinine Ratio 12 (6-20) Glucose Level 104 mg/dL (70-99) H Calcium Level 8.9 mg/dL (8.5-10.1) Total Bilirubin 0.6 mg/dL (0.2-1.0) Aspartate Amino Transferase (AST) 30 U/L (15-37) Alanine Aminotransferase (ALT) 22 U/L (14-59) Alkaline Phosphatase 205 U/L (46-116) H Creatine Kinase 45 U/L (26-192) Total Protein 7.7 g/dL (6.4-8.2) Albumin 3.1 g/dL (3.4-5.0) L Albumin/Globulin Ratio 0.7 (1.0-1.7) L Laboratory Tests 10/01/19 13:45 Laboratory Tests 10/01/19 13:45 EKG EKG [] Radiology/Procedures Radiology/Procedures [][facility] [address] [place] [address] IMAGING REPORT Signed PATIENT: ANDREW LA ACCOUNT: [id number] : 1935 LOCATION: ER AGE: 83 SEX: F EXAM STATUS: REG ER ORD. PHYSICIAN: ROSEANNE TONY MD REASON: fall, NECK PAIN PROCEDURE: CT CERVICAL SPINE WO CONTRAST CT CERVICAL SPINE WO CONTRAST, CT HEAD AND MAXILLOFACIAL WO Clinical indications: Fall. Loss of consciousness. Head and facial injury. NONCONTRAST HEAD CT Technique: Noncontrast axial cross sectional scanning of the head was performed. PQRS compliance Statement One or more of the following individualized dose reduction techniques were utilized for this study: 1. Automated exposure control 2. Adjustment of the mA and/or kV according to patient size 3. Use of iterative reconstruction technique Findings: No acute intracranial hemorrhage or midline shift or mass-effect or hydrocephalus or extra-axial fluid collection is seen. Mild bilateral periventricular white matter hypodensity is seen consistent with chronic small vessel ischemic disease in this age group. No skull fracture or pneumocephalus is seen. No opacification of the mastoid sinuses or the middle ear cavities is seen. Impression: No acute intracranial abnormality is seen. NONCONTRAST CERVICAL SPINE CT TECHNIQUE: Noncontrast helical CT scanning of the cervical spine was performed. Multiplanar 2-D reconstructions were generated. FINDINGS: No acute fracture or discitis or lytic process is evident. Grade 1 anterolisthesis of C2-3 and C3-4 and C4-5 and C7-T1 is seen. Degenerative facet arthropathy is evident. No perching of facet joints is seen. There is degenerative disc space narrowing and endplate spurring at C5-6 and C6-7 and T1-T2. IMPRESSION: No acute fracture. Degenerative cervical spondylosis. MAXILLOFACIAL BONE CT WITHOUT CONTRAST TECHNIQUE: Noncontrast helical CT scanning of the maxillofacial bones was performed. Multiplanar 2-D reconstructions were generated. FINDINGS: The mandible is intact and no dislocation of the temporomandibular joint is seen on either side. The nasal spine and nasal bones are intact. Nasal septal deviation is seen within the convexity pointed towards the left side. The maxilla and pterygoid plates and zygoma and zygomatic arch are intact. No opacification or air-fluid levels of the paranasal sinuses is seen. No lytic process is evident. IMPRESSION: No acute fracture. Nasal septal deviation. Electronically signed by: Beatriz Ching MD (10/01/2019 2:54 PM) [id number] DICTATED and SIGNED BY: BEATRIZ CHING MD DATE: 10/01/19 1454 [facility] [address] [place] [address] IMAGING REPORT Signed PATIENT: ANDREW LA ACCOUNT: [id number] : 1935 LOCATION: ER AGE: 83 SEX: F EXAM STATUS: PRE ER ORD. PHYSICIAN: ROSEANNE TONY MD REASON: fall PROCEDURE: PORTABLE CHEST 1V Examination: PORTABLE CHEST 1V History: Fall, pain Comparison/Correlation: 05/09/2019 AP view the chest Findings: Upright portable frontal view chest was obtained. Heart size and pulmonary vasculature are normal. No infiltrate, pneumothorax, or pleural effusion. Ectasia of the thoracic aorta noted. The lateral convexity of the thoracic spine is evident. Bony structures are intact. Impression: No suspicious process. If fracture is a persistent concern, consider additional imaging. Electronically signed by: Amos Caputo MD (10/01/2019 2:07 PM) [facility] DICTATED and SIGNED BY: AMOS CAPUTO MD DATE: 10/01/19 1409 Course & Med Decision Making Course & Med Decision Making Pertinent Labs and Imaging studies reviewed. (See chart for details) Evaluation of patient in ER showed 83-year-old female patient with a fall and laceration of face. Patient had large laceration of right face that was repaired in 2 layers with well controlled bleeding. Labs showed chronic anemia without electrolyte problem. CT head and cervical spine and axial facial bone was unremarkable. Patient was advised to follow-up with her primary care physician. Dragon Disclaimer Dragon Disclaimer This electronic medical record was generated, in whole or in part, using a voice recognition dictation system. Departure Departure Impression: Primary Impression: Facial laceration Additional Impressions: Fall History of pancreatic cancer Anemia Disposition: HOME, SELF-CARE (at 1540) Condition: IMPROVED Referrals: SRINIVASA ABDULLAHI MD (PCP) Patient Instructions: Facial Laceration, Fall Prevention and Home Safety, Head Injury, Adult, Sutured Wound Care Additional Instructions: Apply ice on the affected area Follow-up with your primary care physician in 3-5 days Return to ER if not getting better Suture removal in 5-7 days Thank you for visiting [facility]. We appreciate you trusting us with your care. If any additional problems come up don't hesitate to return to visit us. Please follow up with your primary care provider so they can plan additional care if needed and know about the problem that you had. If symptoms worsen come back to the Emergency Department. Any concerning symptoms that start such as chest pain, shortness of air, weakness or numbness on one side of the body, running high fevers or any other concerning symptoms return to the ER. Scripts Hydrocodone/Apap 5-325 (NORCO 5-325 TABLET) 1 Each Tablet 1 TAB PO PRN Q6HRS PRN for PAIN, #15 TAB 0 Refills Prov: ROSEANNE TONY MD 10/01/19 Laceration Repair Lac Repair Indication: Right eyebrow laceration Procedure: The patient was placed in the appropriate position and anesthesia around the right eyebrow laceration with 5 mL of 1% lidocaine was given. The area was then irrigated with normal saline and debrided minimally. The laceration was repaired in 2 layers. Subcutaneous she was repaired with 4 sutures of plain cutgut 5-0 and sattelite shape skin laceration was repaired with 11 sutures of 5-0 Ethilon. The wound area was then dressed with gauze and Coban. Total repaired wound length: 7 cm Other Items: None The patient tolerated the procedure well. Complications: none. Problem Qualifiers Primary Impression: Facial laceration Encounter type: initial encounter Qualified Codes: S01.81XA - Laceration without foreign body of other part of head, initial encounter Additional Impressions: Fall Encounter type: initial encounter Qualified Codes: W19.XXXA - Unspecified fall, initial encounter Anemia Anemia type: unspecified type Qualified Codes: D64.9 - Anemia, unspecified ROSEANNE TONY MD Oct 01, 2019 13:53
[2019-10-01 14:01] LABS: BASO % 1 % (0-3); EOS # 0.3 x10^3/uL (0.0-0.7); EOS % 6 % (0-3); HEMOGLOBIN 9.5 g/dL (12.0-15.5); LYMPH # 1.9 x10^3/uL (1.0-4.8); LYMPH % 32 % (24-48); MEAN CORPUSCULAR HEMOGLOBIN 27 pg (25-35); MEAN CORPUSCULAR HGB CONC 32 g/dL (31-37); MEAN CORPUSCULAR VOLUME 86 fL (79-100); MONO # 0.5 x10^3/uL (0.0-1.1); MONO % 8 % (0-9); NEUT # 3.2 x10^3/uL (1.8-7.7); NEUT % 54 % (31-73); PLATELET COUNT 309 x10^3/uL (140-400); RED BLOOD COUNT 3.49 x10^6/uL (3.50-5.40); RED CELL DISTRIBUTION WIDTH 21.7 % (11.5-14.5)
--- NOTE | 2019-10-01 14:10 | RAD ---
Examination: PORTABLE CHEST 1V History: Fall, pain Comparison/Correlation: 05/09/2019 AP view the chest Findings: Upright portable frontal view chest was obtained. Heart size and pulmonary vasculature are normal. No infiltrate, pneumothorax, or pleural effusion. Ectasia of the thoracic aorta noted. The lateral convexity of the thoracic spine is evident. Bony structures are intact. Impression: No suspicious process. If fracture is a persistent concern, consider additional imaging. Electronically signed by: Amos Matias MD (10/01/2019 2:07 PM) [facility]
[2019-10-01 14:16] LABS: CALCIUM 8.9 mg/dL (8.5-10.1); CREATININE 0.9 mg/dL (0.6-1.0); GFR 60.1; POTASSIUM 3.7 mmol/L (3.5-5.1)
[2019-10-01 14:23] LABS: ALBUMIN 3.1 g/dL (3.4-5.0); ALBUMIN/GLOBULIN RATIO 0.7 (1.0-1.7); TOTAL BILIRUBIN 0.6 mg/dL (0.2-1.0); TOTAL PROTEIN 7.7 g/dL (6.4-8.2)
--- NOTE | 2019-10-01 14:57 | RAD ---
CT CERVICAL SPINE WO CONTRAST, CT HEAD AND MAXILLOFACIAL WO Clinical indications: Fall. Loss of consciousness. Head and facial injury. NONCONTRAST HEAD CT Technique: Noncontrast axial cross sectional scanning of the head was performed. PQRS compliance Statement One or more of the following individualized dose reduction techniques were utilized for this study: 1. Automated exposure control 2. Adjustment of the mA and/or kV according to patient size 3. Use of iterative reconstruction technique Findings: No acute intracranial hemorrhage or midline shift or mass-effect or hydrocephalus or extra-axial fluid collection is seen. Mild bilateral periventricular white matter hypodensity is seen consistent with chronic small vessel ischemic disease in this age group. No skull fracture or pneumocephalus is seen. No opacification of the mastoid sinuses or the middle ear cavities is seen. Impression: No acute intracranial abnormality is seen. NONCONTRAST CERVICAL SPINE CT TECHNIQUE: Noncontrast helical CT scanning of the cervical spine was performed. Multiplanar 2-D reconstructions were generated. FINDINGS: No acute fracture or discitis or lytic process is evident. Grade 1 anterolisthesis of C2-3 and C3-4 and C4-5 and C7-T1 is seen. Degenerative facet arthropathy is evident. No perching of facet joints is seen. There is degenerative disc space narrowing and endplate spurring at C5-6 and C6-7 and T1-T2. IMPRESSION: No acute fracture. Degenerative cervical spondylosis. MAXILLOFACIAL BONE CT WITHOUT CONTRAST TECHNIQUE: Noncontrast helical CT scanning of the maxillofacial bones was performed. Multiplanar 2-D reconstructions were generated. FINDINGS: The mandible is intact and no dislocation of the temporomandibular joint is seen on either side. The nasal spine and nasal bones are intact. Nasal septal deviation is seen within the convexity pointed towards the left side. The maxilla and pterygoid plates and zygoma and zygomatic arch are intact. No opacification or air-fluid levels of the paranasal sinuses is seen. No lytic process is evident. IMPRESSION: No acute fracture. Nasal septal deviation. Electronically signed by: Francisco Ching MD (10/01/2019 2:54 PM) [id number]
[2019-10-01 15:27] VITALS: BP 121/70
[2019-10-01] MEDS ORDERED: HYDR-3164 PO (15:43)
[2019-10-01 17:45] LABS: ANISOCYTOSIS SLIGHT; PLT ESTIMATE ADEQUATE (ADEQUATE)
== END 2019-10-01 16:00 | disposition home or self-care (01) ==
LOC: ER 13:24
DX: S01.111A Laceration without foreign body of right eyelid and periocular area, initial encounter (principal); D64.9 Anemia, unspecified; M79.7 Fibromyalgia; N28.9 Disorder of kidney and ureter, unspecified; E78.00 Pure hypercholesterolemia, unspecified; I10 Essential (primary) hypertension; Z90.49 Acquired absence of other specified parts of digestive tract; Z90.89 Acquired absence of other organs; Z98.890 Other specified postprocedural states; Z85.07 Personal history of malignant neoplasm of pancreas; Z88.0 Allergy status to penicillin; Z88.2 Allergy status to sulfonamides; Z88.8 Allergy status to other drugs, medicaments and biological substances
CPT/HCPCS: 12053; 36415; 70450; 70486; 71045; 72125; 80053; 82550; 85025; 85610; 96374; 96375; 99285; J2060; J2405; J3010

== ENCOUNTER → 2019-11-10 | Outpatient (CLI) | payer MEDICARE ==
[~2019-11-10] MED LIST changes: +CONTRAST GIVEN. MC PRN; +HYDR-3164 PO; +IOHEXOL 240 MG/ML 50ML VIAL. PO ONE; +IOHEXOL 300 MG/ML 100ML VIAL. IV ONE
--- NOTE | 2019-11-11 16:01 | RAD ---
CT scan of the chest, abdomen and pelvis with contrast 11/10/2019 CLINICAL HISTORY: Cholangiocarcinoma. TECHNIQUE: After the oral and intravenous administration pf contrast, contiguous, 5 mm axial sections were obtained through the chest, abdomen and pelvis. 75 cc of Omnipaque 300 were administered intravenously during this examination. One or more of the following individualized dose reduction techniques were utilized for this study: 1. Automated exposure control. 2. Adjustment of the mA and/or kV according to patient size. 3. Use of iterative reconstruction technique. FINDINGS: Comparison is made to a CT scan of the abdomen and pelvis dated 12/11/2018. Additional comparison is made to a CT scan of the chest dated 07/07/2019. Atherosclerotic calcification of the thoracic aorta and its branches is noted. The thoracic aorta is tortuous but tapers normally. Scattered coronary artery ossifications are seen. The heart is normal in size. No hilar, mediastinal or axillary lymphadenopathy is noted. Minimal dependent subsegmental atelectasis is seen involving both lungs. No area of consolidation is seen. No pneumothorax or pleural effusion is noted. No pulmonary mass or significant nodule is noted. Air is seen throughout the intrahepatic bile ducts. No focal abnormality of the liver is seen. The spleen, adrenal glands and kidneys are within normal limits. Only the mid/distal body and tail of pancreas is well visualized. Slight atrophy of the visualized pancreas is noted Atherosclerotic calcification of the abdominal aorta is seen. The abdominal aorta tapers normally. Small amount of free fluid is seen surrounding the liver and spleen. A poorly defined masslike area of increased attenuation is seen in the region of the head of the pancreas, surrounding the proximal duodenum the antrum of the stomach. This measures approximately 9.8 x 9.4 x 7.0 cm in transverse, AP and craniocaudal dimensions. This findings could reflect the patient's history of cholangiocarcinoma with post treatment changes. There is no evidence of bowel obstruction. Air and stool are seen throughout the colon. Images through the pelvis demonstrate the urinary bladder distended with urine. A moderate amount of ascites is seen within the pelvis. No pelvic or inguinal lymphadenopathy is seen. Mild S-shaped curvature of the thoracolumbar spine is seen. Degenerative changes are seen involving the lower thoracic and throughout the lumbar spine along with both hips. IMPRESSION: 1. Poorly defined masslike area of increased attenuation is seen in the region of the head of the pancreas surrounding the duodenum and antrum of the stomach. This measures approximately 9.8 cm in size. This may represent the patient's tumor (cholangiocarcinoma ) with posttreatment changes. 2. Interval development of small to moderate amount amount of ascites. 3. There is no CT evidence of metastatic disease involving the chest. Electronically signed by: Joby Small MD (11/11/2019 3:58 PM) [id number]
== END | disposition home or self-care (01) ==
LOC: CT 10:57
PROVIDERS: ATTEND Internal Medicine Hematology & Oncology
DX: J98.11 Atelectasis (principal); I70.0 Atherosclerosis of aorta; N32.89 Other specified disorders of bladder; C22.1 Intrahepatic bile duct carcinoma; Q25.46 Tortuous aortic arch; R18.8 Other ascites
CPT/HCPCS: 71260; 74177; Q9966; Q9967

== ENCOUNTER → 2020-02-05 | Outpatient (CLI) | payer MEDICARE ==
[~2020-02-05] MED LIST changes: -CONTRAST GIVEN. MC PRN; -IOHEXOL 240 MG/ML 50ML VIAL. PO ONE; -IOHEXOL 300 MG/ML 100ML VIAL. IV ONE
[2020-02-05] MEDS: IOHEXOL 300 MG/ML 100ML VIAL. IV ONE (10:15)
[2020-02-05] MEDS: IOHEXOL 240 MG/ML 50ML VIAL. PO ONE (10:15)
--- NOTE | 2020-02-05 13:17 | RAD ---
EXAM: CT Chest, Abdomen, and Pelvis with IV contrast INDICATION: Cholangiocarcinoma. TECHNIQUE: Multi-detector row CT images were acquired from the thoracic inlet through the ischial tuberosities with the use of IV contrast. Sagittal and coronal images were acquired from the transaxial data. All CT scans performed at this facility utilize dose optimization techniques as appropriate to the exam, including the following: Automated exposure control and adjustment of the mA and/or KV according to patient size (this includes techniques or standardized protocols for targeted exams where dose is indication/reason for exam). IV CONTRAST: Administered ORAL CONTRAST: Administered COMPARISON: 11/10/[address] with contrast, chest CT without IV contrast 07/07/2019. Abdomen and pelvis CT with IV contrast of 04/26/2019 FINDINGS: CHEST: CARDIOVASCULAR: Upper normal caliber ascending thoracic aorta measuring 3.9 x 3.9 cm. Scattered arterial calcifications. Normal heart size. No pericardial effusion. MEDIASTINUM & GRACY: No adenopathy or masses. LUNGS: No pulmonary infiltrate, nodule, or other focal abnormality. PLEURAL SPACE: No pleural effusions or pneumothorax. OSSEOUS & SOFT TISSUE: Tiny sclerotic foci in the left humeral head are better seen on this exam and are nonspecific. Bone islands or small osteoblastic metastases are differential considerations.. ABDOMEN/PELVIS: LIVER: Gas-filled mildly distended intrahepatic biliary radicles are present, more conspicuous in the left hepatic lobe than on the right. No discrete hepatic mass. BILIARY SYSTEM: Gallbladder surgically absent. Lungs mildly dilated, more so than on prior exams. PANCREAS: Mild parenchymal atrophy with apparent ductal dilation at the proximal body (6 mm) is noted. The pancreatic head is not well seen and likely surgically absent. SPLEEN: Unremarkable ADRENALS: Unremarkable KIDNEYS & URETERS: Unremarkable BLADDER: Unremarkable REPRODUCTIVE ORGANS: Hysterectomy with nonvisualized ovaries, likely surgically absent as well. GASTROINTESTINAL: Surgical changes compatible with a previous distal gastrectomy and gastrojejunostomy are present. There persists wall thickening in the gastric antrum with perigastric soft tissue stranding. No extravasation of enteric contrast is identified. Soft tissue thickening along the lesser curvature of the stomach near the pancreatic head is essentially unchanged. No findings of bowel obstruction. No free air. The large bowel shows mild wall thickening at the hepatic flexure. MESENTERY/PERITONEUM/RETROPERITONEUM: There is persistent soft tissue stranding in the mesentery in the right upper quadrant abdomen. Small amount of perihepatic ascites is present. VASCULAR: Soft tissue stranding in the right upper quadrant mesentery partly obscures the anterior border of the infrahepatic IVC, of uncertain clinical significance. This is only partially imaged on the current study.. LYMPH NODES: No adenopathy OSSEOUS & SOFT TISSUES: Unremarkable IMPRESSION: Persistent inflammatory changes in the right upper quadrant abdomen status post previous hepatobiliary surgery with no evidence of extravasation of enteric contrast. There is evidence of slightly worse intrahepatic biliary distention and pancreatic ductal dilation with residual soft tissue thickening at the right upper quadrant abdomen. Attention on follow-up is recommended.. Electronically signed by: Andrey Velasquez MD (02/05/2020 1:15 PM) [id number]
== END ==
LOC: CT 11:50
PROVIDERS: ATTEND Internal Medicine Hematology & Oncology
DX: C22.1 Intrahepatic bile duct carcinoma (principal); Z90.49 Acquired absence of other specified parts of digestive tract
CPT/HCPCS: 71260; 74177; Q9966; Q9967

== ENCOUNTER 2020-04-13 20:31 | Inpatient (IN) | payer MEDICARE ==
[~2020-04-13] VITALS: Ht 162.6 cm; Wt 57.7 kg
--- NOTE | 2020-04-13 21:48 | PHYS DOC ---
Past Medical History Past Medical History: Anemia, Fibromyalgia, High Cholesterol, Hypertension, Other Additional Past Medical Histor: Kidney disease Past Surgical History: Cholecystectomy, Hysterectomy, Other Additional Past Surgical Histo: Cystocele,Rectocele Smoking Status: Never Smoker Alcohol Use: Rarely Drug Use: None General Adult EDM: Chief Complaint: SYNCOPE HPI: HPI: Patient is a 84 year old female presents with an episode of syncope this morning. Patient does not over the vent but was found on the floor. Patient has had a couple episodes of feeling weak today as well. Patient has a history of pancreatic cancer is not on chemotherapy currently. She went underwent a Whipple procedure last May. Patient has had diarrhea for the last several weeks. Patient feels generally weak. Patient denies any current pain. There is no fever, or cough or shortness of breath. Review of Systems: Review of Systems: Constitutional: Denies fever or chills. [] Eyes: Denies change in visual acuity. [] HENT: Denies nasal congestion or sore throat. [] Respiratory: Denies cough or shortness of breath. [] Cardiovascular: Denies chest pain or edema. [] GI: Denies abdominal pain, nausea, vomiting, bloody stools or diarrhea. [] : Denies dysuria. [] Musculoskeletal: Denies back pain or joint pain. [] Integument: Denies rash. [] Neurologic: Denies headache, focal weakness or sensory changes. [] Endocrine: Denies polyuria or polydipsia. [] Lymphatic: Denies swollen glands. [] Psychiatric: Denies depression or anxiety. [] Heart Score: Risk Factors: Risk Factors: DM, Current or recent (<one month) smoker, HTN, HLP, family history of CAD, obesity. Risk Scores: Score 0 - 3: 2.5% MACE over next 6 weeks - Discharge Home Score 4 - 6: 20.3% MACE over next 6 weeks - Admit for Clinical Observation Score 7 - 10: 72.7% MACE over next 6 weeks - Early Invasive Strategies Allergies: Allergies: Allergies Coded Allergies Type Severity Reaction Last Updated Verified Penicillins Allergy Intermediate 05/08/19 Yes Sulfa (Sulfonamide Antibiotics) Allergy Intermediate Hives. 05/08/19 Yes lisinopril Allergy Intermediate 05/08/19 Yes Physical Exam: PE: Constitutional: Well developed, well nourished, no acute distress, non-toxic appearance. [] HENT: Normocephalic, atraumatic, bilateral external ears normal, oropharynx dry Eyes: PERRLA, EOMI, conjunctiva normal, no discharge. [] Neck: Normal range of motion, no tenderness, supple, no stridor. [] Cardiovascular:Heart rate regular rhythm, Lungs & Thorax: No respiratory distress Abdomen: , soft, no tenderness, no masses, no pulsatile masses. [] Skin: Warm, dry, no erythema, no rash. [] Back: No tenderness, no CVA tenderness. [] Extremities: No tenderness, no cyanosis, no clubbing, ROM intact, no edema. [] Neurologic: Alert and oriented X 3, normal motor function, normal sensory function, no focal deficits noted. [] Psychologic: Affect normal, judgement normal, mood normal. [] Current Patient Data: Labs: Laboratory Tests Test 04/13/20 22:00 04/13/20 22:32 White Blood Count 6.4 x10^3/uL Red Blood Count 3.34 x10^6/uL Hemoglobin 10.2 g/dL Hematocrit 29.6 % Mean Corpuscular Volume 89 fL Mean Corpuscular Hemoglobin 31 pg Mean Corpuscular Hemoglobin Concent 34 g/dL Red Cell Distribution Width 19.2 % Platelet Count 352 x10^3/uL Neutrophils (%) (Auto) 77 % Lymphocytes (%) (Auto) 13 % Monocytes (%) (Auto) 9 % Eosinophils (%) (Auto) 1 % Basophils (%) (Auto) 0 % Neutrophils # (Auto) 4.9 x10^3/uL Lymphocytes # (Auto) 0.9 x10^3/uL Monocytes # (Auto) 0.6 x10^3/uL Eosinophils # (Auto) 0.1 x10^3/uL Basophils # (Auto) 0.0 x10^3/uL Sodium Level 135 mmol/L Potassium Level 3.5 mmol/L Chloride Level 99 mmol/L Carbon Dioxide Level 29 mmol/L Anion Gap 7 Blood Urea Nitrogen 13 mg/dL Creatinine 1.0 mg/dL Estimated GFR (Cockcroft-Gault) 53.1 BUN/Creatinine Ratio 13 Glucose Level 121 mg/dL Calcium Level 8.9 mg/dL Total Bilirubin 3.7 mg/dL Aspartate Amino Transf (AST/SGOT) 90 U/L Alanine Aminotransferase (ALT/SGPT) 62 U/L Alkaline Phosphatase 1344 U/L Troponin I Quantitative < 0.017 ng/mL Total Protein 7.8 g/dL Albumin 2.8 g/dL Albumin/Globulin Ratio 0.6 Amylase Level 40 U/L Lipase 162 U/L Urine Collection Type Unknown Urine Color [place] Urine Clarity Cloudy Urine pH 6.0 Urine Specific [place] 1.020 Urine Protein Negative mg/dL Urine Glucose (UA) Negative mg/dL Urine Ketones (Stick) Trace mg/dL Urine Blood Small Urine Nitrite Negative Urine Bilirubin Moderate Urine Urobilinogen Dipstick 1.0 mg/dL Urine Leukocyte Esterase Moderate Urine RBC 3-5 /HPF Urine WBC 11-20 /HPF Urine Squamous Epithelial Cells Many /LPF Urine Amorphous Sediment Present /HPF Urine Bacteria Many /HPF Urine Mucus Marked /LPF Current Medications Medications (Trade) Dose Ordered Sig/Meka Route PRN Reason Start Time Stop Time Status Last Admin Dose Admin Ceftriaxone Sodium (Rocephin) 1 gm 1X ONCE IVP 04/14/20 00:00 04/14/20 00:01 DC 04/14/20 00:05 Ondansetron HCl (Zofran) 4 mg PRN Q8HRS PRN IV NAUSEA/VOMITING 1ST CHOICE 04/14/20 00:15 04/15/20 00:14 Sodium Chloride 1,000 ml @ 100 mls/hr 1X ONCE IV 04/14/20 00:30 04/14/20 10:29 04/14/20 00:10 Amitriptyline HCl (Elavil) 10 mg QHS PO 04/14/20 01:00 04/14/20 00:18 Tramadol HCl (Ultram) 50 mg PRN Q6HRS PRN PO MODERATE PAIN 4-6 04/14/20 00:45 04/14/20 01:19 Vital Signs: Vital Signs Date Time Temp Pulse Resp B/P (MAP) Pulse Ox O2 Delivery O2 Flow Rate FiO2 04/14/20 01:19 16 98 Room Air 04/14/20 00:31 100.3 84 18 133/66 (88) 98 Room Air 100.3 04/14/20 00:18 100.0 89 17 131/63 (85) 98 Room Air 100.0 04/13/20 23:33 99.3 82 16 126/67 (86) 96 Room Air 99.3 04/13/20 23:18 99.3 82 16 131/67 (88) 97 Room Air 99.3 04/13/20 23:03 99.3 82 17 133/66 (88) 97 99.3 04/13/20 22:12 99.3 80 16 133/66 (88) 99 99.3 04/13/20 21:57 99.3 80 18 141/64 (89) 99 Room Air 99.3 04/13/20 21:42 99.3 84 17 154/70 (98) 98 Room Air 99.3 04/13/20 21:36 99.3 85 20 154/100 (118) 100 Room Air 99.3 EKG: EKG: EKG interpreted by me normal sinus rhythm with rate 84 normal axis normal intervals normal ST segments Radiology/Procedures: Radiology/Procedures: [][address] [address] IMAGING REPORT Signed PATIENT: ANDREW LA ACCOUNT: [id number] : 1935 LOCATION: ER AGE: 84 SEX: F EXAM STATUS: REG ER ORD. PHYSICIAN: MOSHE NDIAYE MD REASON: weak PROCEDURE: PORTABLE CHEST 1V EXAM: AP View of the chest DATE: 04/13/2020 9:57 PM INDICATION: Weakness COMPARISON: 10/01/2019, 05/09/2019 FINDINGS: The heart is not enlarged. Mediastinal and hilar contours are normal. No focal parenchymal airspace opacity. No pleural effusion or pneumothorax. IMPRESSION: Trace blunting of the costophrenic angles bilaterally may represent trace pleural effusions or pleural thickening. Electronically signed by: Gildardo Olea MD (04/13/2020 10:37 PM) [facility] DICTATED and SIGNED BY: GILDARDO OLEA MD DATE: 04/13/[address] [address] IMAGING REPORT Signed PATIENT: ANDREW LA ACCOUNT: [id number] : 1935 LOCATION: ER AGE: 84 SEX: F EXAM STATUS: REG ER ORD. PHYSICIAN: MOSHE NDIAYE MD REASON: syncope PROCEDURE: CT HEAD WO CONTRAST EXAM: CT Head without IV contrast CLINICAL HISTORY: syncope COMPARISON: None. TECHNIQUE: Routine CT of the head without contrast. Soft tissues and bone windows were reviewed. RS compliance statement - One or more of the following individualized dose reduction techniques were utilized for this study: 1. Automated exposure control 2. Adjustment of the mA and/or kV according to patient size 3. Use of iterative reconstruction technique FINDINGS: There is no evidence of hemorrhage, mass or extra-axial fluid collection. Scales-white differentiation is maintained with no evidence of edema. There is no mass effect or shift of the intracranial structures. The ventricles, basilar cisterns and cortical sulci are normal in size and configuration for the patients stated age. The cerebellum and brainstem are unremarkable. The calvarium demonstrates no evidence of fracture or focal lesion. There is normal aeration of the visualized paranasal sinuses and mastoid air cells. The visualized portions of the orbits are normal. IMPRESSION: No evidence for acute intracranial process. Electronically signed by: Gildardo Olea MD (04/13/2020 10:56 PM) [facility] Course & Med Decision Making: Course & Med Decision Making Pertinent Labs and Imaging studies reviewed. (See chart for details) [] 84-year-old presents with syncope and weakness. Patient has dry oral mucosa and given IV fluids. Patient has elevated bilirubin as well as alkaline phosphatase concerning for recurrence of pancreatic cancer. Patient will be placed in the hospital with consults in the computer placed with cardiology, oncology and her surgeon. Patient hemodynamically stable. I attempted to right patient's regular home medications but patient did not know the doses or the names of most of her medications. Dragon Disclaimer: Dragon Disclaimer: This electronic medical record was generated, in whole or in part, using a voice recognition dictation system. Departure Departure Impression: Primary Impression: Syncope Disposition: 09 ADMITTED INPATIENT Admitting Physician: Genaro Perez Referrals: GENARO PEREZ MD (PCP) Justicifation of Admission Dx: Justifications for Admission: Justification of Admission Dx: Yes MOSHE NDIAYE MD Apr 13, 2020 21:48
[2020-04-13 22:12] LABS: BASO % 0 % (0-3); EOS # 0.1 x10^3/uL (0.0-0.7); EOS % 1 % (0-3); HEMATOCRIT 29.6 % (36.0-47.0); HEMOGLOBIN 10.2 g/dL (12.0-15.5); LYMPH # 0.9 x10^3/uL (1.0-4.8); LYMPH % 13 % (24-48); MEAN CORPUSCULAR HEMOGLOBIN 31 pg (25-35); MEAN CORPUSCULAR HGB CONC 34 g/dL (31-37); MEAN CORPUSCULAR VOLUME 89 fL (79-100); MONO # 0.6 x10^3/uL (0.0-1.1); MONO % 9 % (0-9); NEUT # 4.9 x10^3/uL (1.8-7.7); NEUT % 77 % (31-73); PLATELET COUNT 352 x10^3/uL (140-400); RED BLOOD COUNT 3.34 x10^6/uL (3.50-5.40); RED CELL DISTRIBUTION WIDTH 19.2 % (11.5-14.5); WHITE BLOOD COUNT 6.4 x10^3/uL (4.0-11.0)
[2020-04-13 22:22] LABS: CALCIUM 8.9 mg/dL (8.5-10.1); GFR 53.1; POTASSIUM 3.5 mmol/L (3.5-5.1)
[2020-04-13 22:37] LABS: ALBUMIN 2.8 g/dL (3.4-5.0); ALBUMIN/GLOBULIN RATIO 0.6 (1.0-1.7); TOTAL BILIRUBIN 3.7 mg/dL (0.2-1.0); TOTAL PROTEIN 7.8 g/dL (6.4-8.2)
--- NOTE | 2020-04-13 22:40 | RAD ---
EXAM: AP View of the chest DATE: 04/13/2020 9:57 PM INDICATION: Weakness COMPARISON: 10/01/2019, 05/09/2019 FINDINGS: The heart is not enlarged. Mediastinal and hilar contours are normal. No focal parenchymal airspace opacity. No pleural effusion or pneumothorax. IMPRESSION: Trace blunting of the costophrenic angles bilaterally may represent trace pleural effusions or pleural thickening. Electronically signed by: Gildardo Rivera MD (04/13/2020 10:37 PM) [facility]
[2020-04-13 22:42] LABS: BILIRUBIN,URINE MODERATE (NEG); CLARITY,URINE CLOUDY; COLOR,URINE ORANGE; NITRITE,URINE NEGATIVE (NEG); PROTEIN,URINE NEGATIVE (NEG-TRACE)
[2020-04-13 22:47] LABS: SQUAMOUS EPITHELIAL CELL,UR MANY /LPF
[2020-04-13 22:48] LABS: BACTERIA,URINE MANY /HPF (0-FEW)
[2020-04-13 22:49] LABS: AMORPHOUS SEDIMENT,UR PRESENT /HPF
--- NOTE | 2020-04-13 22:59 | RAD ---
EXAM: CT Head without IV contrast CLINICAL HISTORY: syncope COMPARISON: None. TECHNIQUE: Routine CT of the head without contrast. Soft tissues and bone windows were reviewed. PQRS compliance statement - One or more of the following individualized dose reduction techniques were utilized for this study: 1. Automated exposure control 2. Adjustment of the mA and/or kV according to patient size 3. Use of iterative reconstruction technique FINDINGS: There is no evidence of hemorrhage, mass or extra-axial fluid collection. Scales-white differentiation is maintained with no evidence of edema. There is no mass effect or shift of the intracranial structures. The ventricles, basilar cisterns and cortical sulci are normal in size and configuration for the patients stated age. The cerebellum and brainstem are unremarkable. The calvarium demonstrates no evidence of fracture or focal lesion. There is normal aeration of the visualized paranasal sinuses and mastoid air cells. The visualized portions of the orbits are normal. IMPRESSION: No evidence for acute intracranial process. Electronically signed by: Gildardo Rivera MD (04/13/2020 10:56 PM) [facility]
[2020-04-14] VITALS (7 sets, daily range): BP systolic 97–137; BP diastolic 52–77
[2020-04-14] MEDS ORDERED: cefTRIAXone IV Push 1 GM VIAL. IVP ONE
[2020-04-14] MEDS ORDERED: ONDANSETRON PF 4 MG/2 ML VIAL. IV PRN (00:15)
[2020-04-14] MEDS ORDERED: IV NORMAL SALINE 1000ML BAG 1,000 ML IV ONE (00:30)
[2020-04-14] MEDS ORDERED: traMADol 50 MG TABLET PO PRN (00:45)
[2020-04-14] MEDS ORDERED: AMITRIPTYLINE HCL 10 MG TABLET. PO SCH ×2 (01:00→21:00)
--- NOTE | 2020-04-14 01:50 | RAD ---
EXAM: CT Abdomen and Pelvis without IV contrast INDICATION: Reason: PANCREATIC CA / Spl. Instructions: / History: TECHNIQUE: Multi-detector row CT images were acquired from the lung bases through the abdomen and pelvis without the use of IV contrast. Sagittal and coronal images were acquired from the transaxial data. All CT scans performed at this facility utilize dose optimization techniques as appropriate to the exam, including the following: Automated exposure control and adjustment of the mA and/or KV according to patient size (this includes techniques or standardized protocols for targeted exams where dose is indication/reason for exam). ORAL CONTRAST: None COMPARISON: 02/05/2020 CT angiogram chest FINDINGS: The absence of IV contrast limits evaluation of soft tissue pathology. LOWER CHEST: Unremarkable LIVER: Unremarkable BILIARY SYSTEM: Gallbladder surgically absent. Bile ducts show extensive pneumobilia, primarily in the left-sided biliary radicles. PANCREAS: There is mild generalized parenchymal atrophy with pancreatic head obscured by fluid distended duodenum and surgical clips in the prabha hepatis. Mild streak artifact. SPLEEN: Unremarkable ADRENALS: Unremarkable KIDNEYS & URETERS: Unremarkable BLADDER: Unremarkable REPRODUCTIVE ORGANS: Nonvisualized uterus, suggesting prior hysterectomy. Ovaries not seen either. GASTROINTESTINAL: Multiple fluid-filled small bowel loops in a pattern suggesting possible ileus. No distention suspicious for bowel obstruction. Appendix is not well seen but there are no findings suspicious for acute appendicitis. MESENTERY/PERITONEUM/RETROPERITONEUM: There is soft tissue stranding in the right upper quadrant abdomen and dense ascites layering in the right paracolic gutter. Cannot exclude a small amount of hemoperitoneum. This is somewhat similar to the previous examination in the visualized portions. VASCULAR: Unremarkable. LYMPH NODES: Mild reactive lymph nodes in the right upper quadrant abdomen. OSSEOUS & SOFT TISSUES: Unremarkable IMPRESSION: Postoperative changes in the right upper quadrant abdomen with pneumobilia, dense ascites and soft tissue stranding. No free air or findings suspicious for bowel obstruction. Correlate clinically for any evidence of bleeding and consider follow-up. More detailed evaluation of the patient's stage of pancreatic cancer is limited in the absence of IV contrast. Electronically signed by: Andrey Velasquez MD (04/14/2020 1:48 AM) [facility]
--- NOTE | 2020-04-14 02:36 | EKG ---
[facility] [address] [place] [address] Test Date: 2020-04-13 Test Time: 21:44:01 Pat Name: ANDREW LA Department: Room: Gender: F [employer]: : 1935 Requested By: MOSHE NDIAYE Order Number: [id number] Reading MD: Measurements Intervals [place] Rate: 84 P: 49 PA: 162 QRS: 33 QRSD: 92 T: 19 QT: 374 QTc: 445 Interpretive Statements SINUS RHYTHM LOW LIMB LEAD VOLTAGE NO SPECIFIC ECG ABNORMALITIES RI6.01 No previous ECG available for comparison
[2020-04-14] MEDS ORDERED: FURO20TA3 PO (03:08)
[2020-04-14] MEDS ORDERED: POTA10TA12 PO (03:08)
[2020-04-14] MEDS ORDERED: HYDR10TA2 PO (03:08)
[2020-04-14] MEDS ORDERED: HYDR30CR70 TP (03:08)
[2020-04-14] MEDS ORDERED: AMIT50TA PO (03:08)
[2020-04-14] MEDS ORDERED: TRAM50TA PO (03:08)
[2020-04-14] MEDS ORDERED: GABA300C9 PO (03:08)
--- NOTE | 2020-04-14 08:29 | PDOC2 ---
CARDIAC CONSULT DATE OF CONSULT Date of Consult DATE: 04/14/20 TIME: 08:10 REASON FOR CONSULT Reason for Consult: syncope REFERRING PHYSICIAN Referring Physician: Vandana HISTORY OF PRESENT ILLNESS HISTORY OF PRESENT ILLNESS This is a pleasant 84 yo female admitted for complains of fall, weakness and diarrhea. Yesterday morning she woke up and she was at the side of her bed laying down. She was sleeping before that in bed. She thought she may have ro lled off the bed. The consult is for syncope. She does get dizzy and wometimes feel imbalance but she has had heart workup before and there was no associated arrhythmias in relation to her dizziness. She does take quite a bit of medications that could alter her balance, medications for her fibromyalgia and pain pills. She has had no antibiotics but in the last 2-3 weeks she has been having watery to loose stools about 3-5x daily but this has not affected her appetite. No nausea or vomiting. She has been feeling cold lately but no recorded fever. No passing out lately and no falls until yesterday morning witho no apparent injury. No chest pain, SOA, abdominal pain, and no palpitations. No hx of seizures and there was no obvious passing out but may have simply rolled out of bed according to her . PAST MEDICAL HISTORY Cardiovascular: HTN, Hyperlipidemia Pulmonary: Pneumonia CENTRAL NERVOUS SYSTEM: Other (No pertinent history) GI: Constipation Heme/Onc: Cancer (cholangiocarcinoma) Psych: Anxiety Musculoskeletal: Osteoarthritis Rheumatologic: Fibromyalgia Renal/: Chronic renal insuff, Urinary Incontinence Endocrine: No pertinent hx Dermatology: No pertinent hx PAST SURGICAL HISTORY Past Surgical History: Cholecystectomy (lap), Cataract Removal, Hysterectomy, Other (whipple; bladder tuck) FAMILY HISTORY Family History: Diabetes SOCIAL HISTORY Smoke: No ALCOHOL: none Drugs: None Lives: with Family CURRENT MEDICATIONS CURRENT MEDICATIONS Current Medications Medications (Trade) Dose Ordered Sig/Meka Route PRN Reason Start Time Stop Time Status Last Admin Dose Admin Ceftriaxone Sodium (Rocephin) 1 gm 1X ONCE IVP 04/14/20 00:00 04/14/20 00:01 DC 04/14/20 00:05 Sodium Chloride 1,000 ml @ 100 mls/hr 1X ONCE IV 04/14/20 00:30 04/14/20 10:29 04/14/20 00:10 Amitriptyline HCl (Elavil) 10 mg QHS PO 04/14/20 01:00 04/14/20 00:18 Tramadol HCl (Ultram) 50 mg PRN Q6HRS PRN PO MODERATE PAIN 4-6 04/14/20 00:45 04/14/20 01:19 ALLERGIES ALLERGIES: Coded Allergies: Penicillins (Verified Allergy, Intermediate, 05/08/19) rash Sulfa (Sulfonamide Antibiotics) (Verified Allergy, Intermediate, Hives., 05/08/19) lisinopril (Verified Allergy, Intermediate, 05/08/19) ROS Review of System 14 point ROS evaluated with pertinent positives noted per HPI PHYSICAL EXAM General: Alert, Oriented X3, Cooperative, No acute distress HEENT: Atraumatic, Mucous membr. moist/pink Lungs: Clear to auscultation, Normal air movement Heart: Regular rate (SR), Normal S1, Normal S2, No murmurs Abdomen: Soft, No tenderness Extremities: No cyanosis, No edema Skin: No breakdown, No significant lesion, Other (mild jaundice) Neuro: Normal speech, Sensation intact Psych/Mental Status: Mental status NL, Mood NL MUSCULOSKELETAL: Osteoarthritic changes both hands VITALS/I&O VITALS/I&O: Vital Signs Date Time Temp Pulse Resp B/P (MAP) Pulse Ox O2 Delivery O2 Flow Rate FiO2 04/14/20 03:00 100.4 84 16 137/69 (91) 96 Room Air 100.4 LABS Lab: Laboratory Tests Test 04/13/20 22:00 04/13/20 22:32 White Blood Count 6.4 x10^3/uL (4.0-11.0) Red Blood Count 3.34 x10^6/uL (3.50-5.40) L Hemoglobin 10.2 g/dL (12.0-15.5) L Hematocrit 29.6 % (36.0-47.0) L Mean Corpuscular Volume 89 fL (79-100) Mean Corpuscular Hemoglobin 31 pg (25-35) Mean Corpuscular Hemoglobin Concent 34 g/dL (31-37) Red Cell Distribution Width 19.2 % (11.5-14.5) H Platelet Count 352 x10^3/uL (140-400) Neutrophils (%) (Auto) 77 % (31-73) H Lymphocytes (%) (Auto) 13 % (24-48) L Monocytes (%) (Auto) 9 % (0-9) Eosinophils (%) (Auto) 1 % (0-3) Basophils (%) (Auto) 0 % (0-3) Neutrophils # (Auto) 4.9 x10^3/uL (1.8-7.7) Lymphocytes # (Auto) 0.9 x10^3/uL (1.0-4.8) L Monocytes # (Auto) 0.6 x10^3/uL (0.0-1.1) Eosinophils # (Auto) 0.1 x10^3/uL (0.0-0.7) Basophils # (Auto) 0.0 x10^3/uL (0.0-0.2) Sodium Level 135 mmol/L (136-145) L Potassium Level 3.5 mmol/L (3.5-5.1) Chloride Level 99 mmol/L (98-107) Carbon Dioxide Level 29 mmol/L (21-32) Anion Gap 7 (6-14) Blood Urea Nitrogen 13 mg/dL (7-20) Creatinine 1.0 mg/dL (0.6-1.0) Estimated GFR (Cockcroft-Gault) 53.1 BUN/Creatinine Ratio 13 (6-20) Glucose Level 121 mg/dL (70-99) H Calcium Level 8.9 mg/dL (8.5-10.1) Total Bilirubin 3.7 mg/dL (0.2-1.0) H Aspartate Amino Transferase (AST) 90 U/L (15-37) H Alanine Aminotransferase (ALT) 62 U/L (14-59) H Alkaline Phosphatase 1344 U/L (46-116) H Troponin I Quantitative < 0.017 ng/mL (0.000-0.055) Total Protein 7.8 g/dL (6.4-8.2) Albumin 2.8 g/dL (3.4-5.0) L Albumin/Globulin Ratio 0.6 (1.0-1.7) L Amylase Level 40 U/L (25-115) Lipase 162 U/L (73-393) Urine Collection Type Unknown Urine Color [place] Urine Clarity Cloudy Urine pH 6.0 (<5.0-8.0) Urine Specific [place] 1.020 (1.000-1.030) Urine Protein Negative mg/dL (NEG-TRACE) Urine Glucose (UA) Negative mg/dL (NEG) Urine Ketones (Stick) Trace mg/dL (NEG) Urine Blood Small (NEG) Urine Nitrite Negative (NEG) Urine Bilirubin Moderate (NEG) Urine Urobilinogen Dipstick 1.0 mg/dL (0.2 mg/dL) Urine Leukocyte Esterase Moderate (NEG) Urine RBC 3-5 /HPF (0-2) Urine WBC 11-20 /HPF (0-4) Urine Squamous Epithelial Cells Many /LPF Urine Amorphous Sediment Present /HPF Urine Bacteria Many /HPF (0-FEW) Urine Mucus Marked /LPF Laboratory Tests 04/13/20 22:00 Laboratory Tests 04/13/20 22:00 ASSESSMENT/PLAN ASSESSMENT/PLAN 1. Weakness with nontraumatic mechanical fall: doubt cardiac related and doubt syncopal episode. No related arrhythmias. 2. Hx of cholangiocarcinoma with past whipple 3. Diarrhea: more in the last week 4. Dysequilibrium: would suspect her medications would contribute to this na davina, TCAs analgesic, lyrica, and zoloft combination 5. UTI/fever Recommendations 1. Caution with QT prolonging medications. Recent TTE reviewed, no further cardiac workup 2. IVF, consult COLEEN DUMONT APRN Apr 14, 2020 08:29
[2020-04-14] MEDS ORDERED: ACETAMINOPHEN 325 MG TABLET. PO PRN (10:15)
[2020-04-14] MEDS ORDERED: hydrOXYzine 10 MG TABLET PO PRN (10:15)
[2020-04-14] MEDS ORDERED: ONDANSETRON ODT 4 MG TAB.RAPDIS. PO PRN (10:30)
--- NOTE | 2020-04-14 10:33 | PDOC ---
Provider Note Provider Note history and physical dictated # [id number] Justicifation of Admission Dx: Justifications for Admission: Justification of Admission Dx: Yes SRINIVASA ABDULLAHI MD Apr 14, 2020 10:33
[2020-04-14] MEDS: SERTRALINE 50 MG TABLET. PO SCH (11:01)
[2020-04-14] MEDS: IV NORMAL SALINE 1000ML BAG 1,000 ML IV SCH (11:01)
[2020-04-14] MEDS: CHOLESTYRAMINE/ASPARTAME 4 GM PACKET PO SCH ×2 (11:02→22:35)
[2020-04-14] MEDS: cefTRIAXone IV Push 1 GM VIAL. IVP SCH (11:03)
--- NOTE | 2020-04-14 11:27 | HP ---
ADMIT DATE: 04/14/2020 LOCATION: She is in room 211. 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 The patient yesterday woke up on the floor next to her bed yesterday morning and she had no recollection how she landed there, did not hurt anything, and her helped her to get up. She has been feeling quite weak in the last several weeks. She has also had diarrhea for the last few weeks. She actually was seen in the office a week ago on Sunday for diarrhea and was started on Creon 1 tablet t.i.d. with meals, thinking with Whipple's procedure done that she might have some chronic pancreatic insufficiency causing the diarrhea. The patient's diarrhea has persisted. She denies being on any antibiotics in the last month. She denies any blood in the stool. She also notes that she has had dysuria for the last day or so and had a fever last night of 100.4 degrees. She was given IV Rocephin in the Emergency Room and started on IV fluids. She had a workup done in the Emergency Room also. She is admitted for further evaluation of her syncope, fever and dysuria consistent with a urinary tract infection and generalized weakness. ALLERGIES AND INTOLERANCES: INCLUDE PENICILLIN, SULFA AND LISINOPRIL. She tolerated the Rocephin fine in the Emergency Room last night. MEDICATIONS: Prior to admission include Elavil 75 mg at bedtime, Anusol topical cream applied for hemorrhoids, Creon 1 tablet t.i.d. with meals, furosemide 20 mg every day, potassium chloride 10 mEq every day, hydroxyzine 10 mg t.i.d. p.r.n. for pruritus, lorazepam 0.5 mg every day p.r.n., sertraline 50 mg every day and tramadol 100 mg t.i.d. PAST MEDICAL HISTORY: Significant for a cholangiocarcinoma diagnosed in 04/2019 when she underwent a Whipple's procedure. She also has a history of a cholecystectomy a few years ago, depression, hypertension, hyperlipidemia, fibromyalgia, and pneumonia in 11/2015. SOCIAL HISTORY: She does not drink alcohol nor does she smoke cigarettes. She is and retired. Her son is a physician. FAMILY HISTORY: Noncontributory. REVIEW OF SYSTEMS: GENERAL: She had a fever last night. CARDIOVASCULAR: No chest pain. PULMONARY: No cough or shortness of breath. GASTROINTESTINAL: She has had diarrhea for a few weeks. ENDOCRINE: No diabetes mellitus. SKIN: No rashes. The rest of systems reviewed are negative except as stated in the history of present illness. PHYSICAL EXAMINATION: VITAL SIGNS: Temperature is 98.3 degrees, apical pulse 86, respiratory rate 18, blood pressure 120/64, oxygen saturation 95%, and temperature was 100.4 degrees at 3 o'clock this morning. HEENT: Eyes: Gaze is conjugate. Sclerae are slightly icteric. Mouth is symmetrical. No yeast on her tongue. NECK: No cervical lymphadenopathy., neck is supple. HEART: S1, S2. There is no S3 or murmur. LUNGS: Clear. ABDOMEN: Soft. She does have some ascites. There is no hepatosplenomegaly or masses. It is nontender. Bowel sounds are positive. EXTREMITIES: Lower extremities without edema. Dorsalis pedis pulses are 2+ bilaterally. SKIN: No rashes. NEUROLOGIC: Coherent, had 5/5 bilateral hand power engineer. Able to dorsi and plantarflex the feet and bend her knees. There is no focal weakness. LABORATORY DATA: Review of her laboratory tests; the white count was 6.4, hemoglobin 10.2, platelet count 352,000, 77 polys, and 13 lymphocytes. Sodium 135, potassium 3.5, chloride 99, total CO2 of 29, BUN 13, creatinine 1.0, total bilirubin 3.7, SGOT of 90, SGPT of 62, alkaline phosphatase of 1344. Troponin level was less than 0.017. Albumin was 2.8. Amylase and lipase were normal. Urinalysis showed 3-5 red cells and 11-20 white cells. IMAGING STUDIES: She had a CAT scan of the head done, which showed no acute abnormality. She had a chest x-ray done, which showed no lung infiltrate or pleural effusion. There is trace blunting of the costophrenic angles bilaterally, could possibly secondary to trace pleural effusion or trace pleural thickening or due to pleural thickening. She had a CAT scan of the abdomen and pelvis done without IV contrast and showed postoperative changes in the right upper quadrant of the abdomen. She had ascites. There was no evidence of a bowel obstruction. Spleen was unremarkable. Pancreas showed generalized atrophy. Gallbladder was absent. She had extensive pneumobilia noted. EKG showed sinus rhythm. ASSESSMENT: 1. Suspected syncopal episode. 2. Urinary tract infection. 3. Fever, possibly secondary to urinary tract infection. 4. Cholangiocarcinoma. 5. Anemia of chronic disease. 6. Severe protein-calorie malnutrition. 7. Fatigue. 8. Fibromyalgia. 9. Status post Whipple's procedure. 10. Ascites, suspect it might be malignant given her history of cholangiocarcinoma. 11. Diarrhea. PLAN: At this time is to consult Dr. Garcia for Cardiology and we will consult Dr. Stroud for oncology. We will also consult Dr. Bingham for the diarrhea. We will put her on telemetry. She had an echocardiogram done in 04/2019, which showed a preserved left ventricular ejection fraction of 55-60% and was otherwise unremarkable. We will decrease her medications from home and that we will decrease Elavil to 50 mg at bedtime, defer the pancreatic enzymes to Dr. Bingham, and discontinue the furosemide and potassium chloride. Continue hydroxyzine t.i.d. p.r.n. for itching. She is jaundiced, presumably from her tumor. We will continue with her sertraline. Decrease tramadol to 50 mg t.i.d. We will start her on some physical therapy and decrease her IV fluids, normal saline to 40 mL an hour. Order SCDs for deep vein thrombosis prophylaxis. Continue with IV Rocephin. Urine culture is pending. Repeat her labs again tomorrow. SRINIVASA ABDULLAHI MD DR: ISAK/valorie JOB#: [id number] / [id number]
--- NOTE | 2020-04-14 12:28 | PDOC2 ---
GI CONSULT Reason For Consult: Diarrhea HPI: HPI: Very pleasant 84 y/o female who we have seen in the past. H/o metastatic cholangiocarcinoma s/p Whipple 04/2019 (Dr. Branch). Here w/ ~3 weeks of diarrhea, weakness, and falls (?syncope). Denies precipitating events. Saw Dr. Perez as outpt; brief trial of Creon seemed unhelpful. Labs note impressive Alk Phos, mild elevation in AST and ALT, bili 3.7, possible UTI. CT notes post-operative changes, some ascites. Denies reflux/heartburn, dysphagia, n/v, hematochezia, or melena. H/o constipation before Whipple - stools softer after (but no diarrhea like now). Some lower abdominal discomfort. Had ERCP w/ Dr. Bingham in 04/2019 prior to Whipple - noted distal filling defects in CBD, CBD stricture (dilated), s/p sphincterotomy (no stones), normal PD, and normal papilla w/ adjacent diverticulum. Esophagus, stomach, and duodenum unremarkable. Reports normal colonoscopies in the past. S/p cholecystectomy. No PUD history. PMH: PMH: HTN, HLD, pneumonia, cholangiocarcinoma, anxiety, OA, fibromyalgia, CKD, urinary incontinence cholecystectomy, cataract removal, bladder tuck,hysterectomy, Whipple FH: Family History: No pertinent hx Social History: Smoke: No ALCOHOL: none Drugs: None ROS: GEN: +fever HEENT: Denies blurred vision, sore throat CV: Denies chest pain RESP: Denies shortness of air, cough GI: Per HPI : Denies hematuria, dysuria ENDO: Denies weight changes NEURO: Denies confusion, dizziness MSK: +weakness SKIN: +jaundice Vitals: Vitals: Vital Signs Date Time Temp Pulse Resp B/P (MAP) Pulse Ox O2 Delivery O2 Flow Rate FiO2 04/14/20 11:00 98.2 74 20 106/60 (75) 96 Room Air 98.2 Labs: Labs: Laboratory Tests Test 04/13/20 22:00 04/13/20 22:32 White Blood Count 6.4 x10^3/uL (4.0-11.0) Red Blood Count 3.34 x10^6/uL (3.50-5.40) Hemoglobin 10.2 g/dL (12.0-15.5) Hematocrit 29.6 % (36.0-47.0) Mean Corpuscular Volume 89 fL (79-100) Mean Corpuscular Hemoglobin 31 pg (25-35) Mean Corpuscular Hemoglobin Concent 34 g/dL (31-37) Red Cell Distribution Width 19.2 % (11.5-14.5) Platelet Count 352 x10^3/uL (140-400) Neutrophils (%) (Auto) 77 % (31-73) Lymphocytes (%) (Auto) 13 % (24-48) Monocytes (%) (Auto) 9 % (0-9) Eosinophils (%) (Auto) 1 % (0-3) Basophils (%) (Auto) 0 % (0-3) Neutrophils # (Auto) 4.9 x10^3/uL (1.8-7.7) Lymphocytes # (Auto) 0.9 x10^3/uL (1.0-4.8) Monocytes # (Auto) 0.6 x10^3/uL (0.0-1.1) Eosinophils # (Auto) 0.1 x10^3/uL (0.0-0.7) Basophils # (Auto) 0.0 x10^3/uL (0.0-0.2) Sodium Level 135 mmol/L (136-145) Potassium Level 3.5 mmol/L (3.5-5.1) Chloride Level 99 mmol/L (98-107) Carbon Dioxide Level 29 mmol/L (21-32) Anion Gap 7 (6-14) Blood Urea Nitrogen 13 mg/dL (7-20) Creatinine 1.0 mg/dL (0.6-1.0) Estimated GFR (Cockcroft-Gault) 53.1 BUN/Creatinine Ratio 13 (6-20) Glucose Level 121 mg/dL (70-99) Calcium Level 8.9 mg/dL (8.5-10.1) Total Bilirubin 3.7 mg/dL (0.2-1.0) Aspartate Amino Transf (AST/SGOT) 90 U/L (15-37) Alanine Aminotransferase (ALT/SGPT) 62 U/L (14-59) Alkaline Phosphatase 1344 U/L (46-116) Troponin I Quantitative < 0.017 ng/mL (0.000-0.055) Total Protein 7.8 g/dL (6.4-8.2) Albumin 2.8 g/dL (3.4-5.0) Albumin/Globulin Ratio 0.6 (1.0-1.7) Amylase Level 40 U/L (25-115) Lipase 162 U/L (73-393) Urine Collection Type Unknown Urine Color [place] Urine Clarity Cloudy Urine pH 6.0 (<5.0-8.0) Urine Specific [place] 1.020 (1.000-1.030) Urine Protein Negative mg/dL (NEG-TRACE) Urine Glucose (UA) Negative mg/dL (NEG) Urine Ketones (Stick) Trace mg/dL (NEG) Urine Blood Small (NEG) Urine Nitrite Negative (NEG) Urine Bilirubin Moderate (NEG) Urine Urobilinogen Dipstick 1.0 mg/dL (0.2 mg/dL) Urine Leukocyte Esterase Moderate (NEG) Urine RBC 3-5 /HPF (0-2) Urine WBC 11-20 /HPF (0-4) Urine Squamous Epithelial Cells Many /LPF Urine Amorphous Sediment Present /HPF Urine Bacteria Many /HPF (0-FEW) Urine Mucus Marked /LPF Allergies: Coded Allergies: Penicillins (Verified Allergy, Intermediate, 05/08/19) rash Sulfa (Sulfonamide Antibiotics) (Verified Allergy, Intermediate, Hives., 05/08/19) lisinopril (Verified Allergy, Intermediate, 05/08/19) Medications: Current Medications Medications (Trade) Dose Ordered Sig/Meka Route PRN Reason Start Time Stop Time Status Last Admin Dose Admin Ceftriaxone Sodium (Rocephin) 1 gm 1X ONCE IVP 04/14/20 00:00 04/14/20 00:01 DC 04/14/20 00:05 Sodium Chloride 1,000 ml @ 100 mls/hr 1X ONCE IV 04/14/20 00:30 04/14/20 10:29 DC 04/14/20 00:10 Amitriptyline HCl (Elavil) 10 mg QHS PO 04/14/20 01:00 04/14/20 10:20 DC 04/14/20 00:18 Tramadol HCl (Ultram) 50 mg PRN Q6HRS PRN PO MODERATE PAIN 4-6 04/14/20 00:45 04/14/20 10:20 DC 04/14/20 01:19 Ceftriaxone Sodium (Rocephin) 1 gm Q24H IVP 04/14/20 11:00 04/14/20 11:03 Cholestyramine Resin (Questran Light) 4 gm BID@1000,2200 PO 04/14/20 10:30 04/14/20 11:02 Sertraline HCl (Zoloft) 50 mg DAILY PO 04/14/20 11:00 04/14/20 11:01 Sodium Chloride 1,000 ml @ 40 mls/hr Q24H IV 04/14/20 10:15 04/14/20 11:01 Imaging: Imaging: Head CT IMPRESSION: No evidence for acute intracranial process. CXR IMPRESSION: Trace blunting of the costophrenic angles bilaterally may represent trace pleural effusions or pleural thickening. CT A/P IMPRESSION: Postoperative changes in the right upper quadrant abdomen with pneumobilia, dense ascites and soft tissue stranding. No free air or findings suspicious for bowel obstruction. Correlate clinically for any evidence of bleeding and consider follow-up. More detailed evaluation of the patient's stage of pancreatic cancer is limited in the absence of IV contrast. PE: GEN: NAD HEENT: Atraumatic, PERRL LUNGS: CTAB HEART: RRR ABD: NABS, S/ND, mild bilateral lower abdominal discomfort EXTREMITY: No edema SKIN: +jaundice NEURO/PSYCH: A & O 3 A/P: A/P: Diarrhea, weakness, fall H/o metastatic cholangiocarcinoma s/p Whipple, some ascites on CT Chronic anemia, elevated LFTs, ?UTI CRC screen - past colonoscopies reportedly unrevealing -- C Diff already ordered, await this. Add enteric panel and fecal WBCs. Check CA-125, abd US. Cholestyramine added as d/w Dr. Perez. CORI PEDERSEN Apr 14, 2020 12:28
--- NOTE | 2020-04-14 13:00 | NUR ---
SS following for discharge planning. SS reviewed pt chart and discussed with pt RN. Pt is from home with spouse and is currently on room air. Pt on IV Rocephin. PT/OT ordered. SS will continue to follow for discharge planning.
[2020-04-14] MEDS: traMADol 50 MG TABLET PO SCH ×2 (13:16→22:39)
--- NOTE | 2020-04-14 14:32 | RAD ---
Limited abdominal ultrasound 04/14/2020 INDICATION: Evaluate biliary tree. History of Whipple procedure. Elevated bilirubin. COMPARISON STUDY: CT of the abdomen and pelvis, earlier same day Discussion: Ultrasound evaluation of the right upper abdomen was performed. Static images are submitted to PACS. The pancreas is partially visualized. Visualized portions of the pancreatic body demonstrate no gross abnormality. Visualized portions of the IVC are unremarkable. Cholecystectomy noted. Multiple shadowing structures are seen within the liver consistent with pneumobilia is identified on CT scan performed earlier same day. This limits evaluation of the intrahepatic biliary tree. Visualized portions of the intrahepatic biliary tree including but appears to be the common hepatic duct appear to be mildly prominent, but this is nonspecific in the setting of prior Whipple procedure. The liver is normal in size. No other focal hepatic lesions are appreciated. The portal vein was nonvisualized. The right kidney is unremarkable measuring 9 cm in length. Ascites is noted in the right upper quadrant and to a lesser degree the left lower quadrant. IMPRESSION: 1. Pneumobilia, similar to findings on prior CT scan. Mild dilatation of intrahepatic bile ducts, not unexpected given surgical history. 2. Mild ascites Electronically signed by: Tk Scales MD (04/14/2020 2:29 PM) [id number]
--- NOTE | 2020-04-14 20:09 | PDOC2 ---
CONSULT Date of Consult Date of Consult DATE: 04/14/20 TIME: 20:02 Reason for Consult Reason for Consult: diarrhea Referring Physician Referring Physician: Dr. Perez Identification/Chief Complaint Chief Complaint diarrhea Source Source: Chart review, Patient History of Present Illness Reason for Visit: 84 yo F s/p whipple for cholangiocarcinoma. Had done well. However, over last 3 weeks with significant diarrhea. Subsequently developed syncope. Presents to ER for evaluation. Seen in hospital and appears currently comfortable. Past Medical History Cardiovascular: HTN, Hyperlipidemia Pulmonary: Pneumonia CENTRAL NERVOUS SYSTEM: Other (No pertinent history) GI: Constipation Heme/Onc: Cancer (cholangiocarcinoma) Hepatobiliary: No pertinent hx Psych: Anxiety Musculoskeletal: Osteoarthritis Rheumatologic: Fibromyalgia Infectious disease: No pertinent hx Renal/: Chronic renal insuff, Urinary Incontinence Endocrine: No pertinent hx Dermatology: No pertinent hx Past Surgical History Past Surgical History: Cholecystectomy (lap), Cataract Removal, Hysterectomy, Other (whipple; bladder tuck) Family History Family History: Diabetes Social History No ALCOHOL: none Drugs: None Lives: with Family Domestic Violence: Neg Current Problem List Problem List Problems Medical Problems: (1) Syncope Status: Acute Current Medications Current Medications Current Medications Ceftriaxone Sodium (Rocephin) 1 gm 1X ONCE IVP Last administered on 04/14/20at 00:05; Start 04/14/20 at 00:00; Stop 04/14/20 at 00:01; Status DC Ondansetron HCl (Zofran) 4 mg PRN Q8HRS PRN IV NAUSEA/VOMITING 1ST CHOICE; Start 04/14/20 at 00:15; Stop 04/15/20 at 00:14 Sodium Chloride 1,000 ml @ 100 mls/hr 1X ONCE IV Last administered on 04/14/20at 00:10; Start 04/14/20 at 00:30; Stop 04/14/20 at 10:29; Status DC Amitriptyline HCl (Elavil) 10 mg QHS PO Last administered on 04/14/20at 00:18; Start 04/14/20 at 01:00; Stop 04/14/20 at 10:20; Status DC Tramadol HCl (Ultram) 50 mg PRN Q6HRS PRN PO MODERATE PAIN 4-6 Last administered on 04/14/20at 01:19; Start 04/14/20 at 00:45; Stop 04/14/20 at 10:20; Status DC Amitriptyline HCl (Elavil) 50 mg QHS PO ; Start 04/14/20 at 21:00 Tramadol HCl (Ultram) 50 mg TID PO Last administered on 04/14/20at 13:16; Start 04/14/20 at 14:00 Ceftriaxone Sodium (Rocephin) 1 gm Q24H IVP Last administered on 04/14/20at 11:03; Start 04/14/20 at 11:00 Cholestyramine Resin (Questran Light) 4 gm BID@1000,2200 PO Last administered on 04/14/20at 11:02; Start 04/14/20 at 10:30 Sertraline HCl (Zoloft) 50 mg DAILY PO Last administered on 04/14/20at 11:01; Start 04/14/20 at 11:00 Hydroxyzine HCl (Atarax) 10 mg PRN TID PRN PO ITCHING; Start 04/14/20 at 10:15 Acetaminophen (Tylenol) 650 mg PRN Q6HRS PRN PO MILD PAIN / TEMP > 100.3'F; Start 04/14/20 at 10:15 Sodium Chloride 1,000 ml @ 40 mls/hr Q24H IV Last administered on 04/14/20at 11:01; Start 04/14/20 at 10:15 Ondansetron HCl (Zofran Odt) 4 mg PRN Q6HRS PRN PO NAUSEA/VOMITING; Start 04/14/20 at 10:30 Active Scripts Active Zoloft (Sertraline Hcl) 50 Mg Tablet 50 Mg PO DAILY Reported Amitriptyline Hcl 50 Mg Tablet 50 Mg PO QHS Klor-Con 10 (Potassium Chloride) 10 Meq Tablet.er 10 Meq PO DAILY Tramadol Hcl 50 Mg Tablet 100 Mg PO PRN TID PRN Furosemide 20 Mg Tablet 20 Mg PO DAILY Gabapentin 300 Mg Capsule 300 Mg PO TID Proctocream-Hc (Hydrocortisone) 30 Gm Cream..g. 1 Sim TP BID Hydroxyzine Hcl 10 Mg Tablet 10 Mg PO PRN TID PRN Allergies Allergies: Coded Allergies: Penicillins (Verified Allergy, Intermediate, 05/08/19) rash Sulfa (Sulfonamide Antibiotics) (Verified Allergy, Intermediate, Hives., 05/08/19) lisinopril (Verified Allergy, Intermediate, 05/08/19) ROS Cardiovascular: yes Lt [place] Gastrointestinal: Yes Diarrhea Physical Exam General: Alert, Oriented X3, Cooperative, No acute distress HEENT: Atraumatic Lungs: Normal air movement Abdomen: Soft, No tenderness, Other (some distention) Skin: No rashes, No breakdown Neuro: Normal speech, Sensation intact Psych/Mental Status: Mental status NL, Mood NL Vitals VITALS Vital Signs Date Time Temp Pulse Resp B/P (MAP) Pulse Ox O2 Delivery O2 Flow Rate FiO2 04/14/20 19:54 98.5 74 16 117/73 (88) 98 Room Air 98.5 Labs Labs Laboratory Tests Test 04/13/20 22:00 04/13/20 22:32 White Blood Count 6.4 x10^3/uL (4.0-11.0) Red Blood Count 3.34 x10^6/uL (3.50-5.40) Hemoglobin 10.2 g/dL (12.0-15.5) Hematocrit 29.6 % (36.0-47.0) Mean Corpuscular Volume 89 fL (79-100) Mean Corpuscular Hemoglobin 31 pg (25-35) Mean Corpuscular Hemoglobin Concent 34 g/dL (31-37) Red Cell Distribution Width 19.2 % (11.5-14.5) Platelet Count 352 x10^3/uL (140-400) Neutrophils (%) (Auto) 77 % (31-73) Lymphocytes (%) (Auto) 13 % (24-48) Monocytes (%) (Auto) 9 % (0-9) Eosinophils (%) (Auto) 1 % (0-3) Basophils (%) (Auto) 0 % (0-3) Neutrophils # (Auto) 4.9 x10^3/uL (1.8-7.7) Lymphocytes # (Auto) 0.9 x10^3/uL (1.0-4.8) Monocytes # (Auto) 0.6 x10^3/uL (0.0-1.1) Eosinophils # (Auto) 0.1 x10^3/uL (0.0-0.7) Basophils # (Auto) 0.0 x10^3/uL (0.0-0.2) Sodium Level 135 mmol/L (136-145) Potassium Level 3.5 mmol/L (3.5-5.1) Chloride Level 99 mmol/L (98-107) Carbon Dioxide Level 29 mmol/L (21-32) Anion Gap 7 (6-14) Blood Urea Nitrogen 13 mg/dL (7-20) Creatinine 1.0 mg/dL (0.6-1.0) Estimated GFR (Cockcroft-Gault) 53.1 BUN/Creatinine Ratio 13 (6-20) Glucose Level 121 mg/dL (70-99) Calcium Level 8.9 mg/dL (8.5-10.1) Total Bilirubin 3.7 mg/dL (0.2-1.0) Aspartate Amino Transf (AST/SGOT) 90 U/L (15-37) Alanine Aminotransferase (ALT/SGPT) 62 U/L (14-59) Alkaline Phosphatase 1344 U/L (46-116) Troponin I Quantitative < 0.017 ng/mL (0.000-0.055) Total Protein 7.8 g/dL (6.4-8.2) Albumin 2.8 g/dL (3.4-5.0) Albumin/Globulin Ratio 0.6 (1.0-1.7) Amylase Level 40 U/L (25-115) Lipase 162 U/L (73-393) Urine Collection Type Unknown Urine Color [place] Urine Clarity Cloudy Urine pH 6.0 (<5.0-8.0) Urine Specific [place] 1.020 (1.000-1.030) Urine Protein Negative mg/dL (NEG-TRACE) Urine Glucose (UA) Negative mg/dL (NEG) Urine Ketones (Stick) Trace mg/dL (NEG) Urine Blood Small (NEG) Urine Nitrite Negative (NEG) Urine Bilirubin Moderate (NEG) Urine Urobilinogen Dipstick 1.0 mg/dL (0.2 mg/dL) Urine Leukocyte Esterase Moderate (NEG) Urine RBC 3-5 /HPF (0-2) Urine WBC 11-20 /HPF (0-4) Urine Squamous Epithelial Cells Many /LPF Urine Amorphous Sediment Present /HPF Urine Bacteria Many /HPF (0-FEW) Urine Mucus Marked /LPF Laboratory Tests Test 04/13/20 22:00 04/13/20 22:32 White Blood Count 6.4 x10^3/uL (4.0-11.0) Red Blood Count 3.34 x10^6/uL (3.50-5.40) Hemoglobin 10.2 g/dL (12.0-15.5) Hematocrit 29.6 % (36.0-47.0) Mean Corpuscular Volume 89 fL (79-100) Mean Corpuscular Hemoglobin 31 pg (25-35) Mean Corpuscular Hemoglobin Concent 34 g/dL (31-37) Red Cell Distribution Width 19.2 % (11.5-14.5) Platelet Count 352 x10^3/uL (140-400) Neutrophils (%) (Auto) 77 % (31-73) Lymphocytes (%) (Auto) 13 % (24-48) Monocytes (%) (Auto) 9 % (0-9) Eosinophils (%) (Auto) 1 % (0-3) Basophils (%) (Auto) 0 % (0-3) Neutrophils # (Auto) 4.9 x10^3/uL (1.8-7.7) Lymphocytes # (Auto) 0.9 x10^3/uL (1.0-4.8) Monocytes # (Auto) 0.6 x10^3/uL (0.0-1.1) Eosinophils # (Auto) 0.1 x10^3/uL (0.0-0.7) Basophils # (Auto) 0.0 x10^3/uL (0.0-0.2) Sodium Level 135 mmol/L (136-145) Potassium Level 3.5 mmol/L (3.5-5.1) Chloride Level 99 mmol/L (98-107) Carbon Dioxide Level 29 mmol/L (21-32) Anion Gap 7 (6-14) Blood Urea Nitrogen 13 mg/dL (7-20) Creatinine 1.0 mg/dL (0.6-1.0) Estimated GFR (Cockcroft-Gault) 53.1 BUN/Creatinine Ratio 13 (6-20) Glucose Level 121 mg/dL (70-99) Calcium Level 8.9 mg/dL (8.5-10.1) Total Bilirubin 3.7 mg/dL (0.2-1.0) Aspartate Amino Transf (AST/SGOT) 90 U/L (15-37) Alanine Aminotransferase (ALT/SGPT) 62 U/L (14-59) Alkaline Phosphatase 1344 U/L (46-116) Troponin I Quantitative < 0.017 ng/mL (0.000-0.055) Total Protein 7.8 g/dL (6.4-8.2) Albumin 2.8 g/dL (3.4-5.0) Albumin/Globulin Ratio 0.6 (1.0-1.7) Amylase Level 40 U/L (25-115) Lipase 162 U/L (73-393) Urine Collection Type Unknown Urine Color [place] Urine Clarity Cloudy Urine pH 6.0 (<5.0-8.0) Urine Specific [place] 1.020 (1.000-1.030) Urine Protein Negative mg/dL (NEG-TRACE) Urine Glucose (UA) Negative mg/dL (NEG) Urine Ketones (Stick) Trace mg/dL (NEG) Urine Blood Small (NEG) Urine Nitrite Negative (NEG) Urine Bilirubin Moderate (NEG) Urine Urobilinogen Dipstick 1.0 mg/dL (0.2 mg/dL) Urine Leukocyte Esterase Moderate (NEG) Urine RBC 3-5 /HPF (0-2) Urine WBC 11-20 /HPF (0-4) Urine Squamous Epithelial Cells Many /LPF Urine Amorphous Sediment Present /HPF Urine Bacteria Many /HPF (0-FEW) Urine Mucus Marked /LPF Images Images US pneumobilia, some duct dilation CT with some ascites and thickening Assessment/Plan Assessment/Plan diarrhea agree with w/u per GI certainly concern for recurrence. Thanks for consult! MATT CALLEJAS MD Apr 14, 2020 20:09
--- NOTE | 2020-04-14 22:00 | PDOC2 ---
CONSULT Date of Consult Date of Consult DATE: 04/14/20 TIME: 21:39 Reason for Consult Reason for Consult: Hx of bile duct cancer Referring Physician Referring Physician: Dr Perez Identification/Chief Complaint Chief Complaint Syncope Problems: (1) Cholangiocarcinoma Source Source: Chart review, Patient History of Present Illness Reason for Visit: Natalya Cook is a 84 year old female who has been admitted to the hospital after a fall and loss of consciousness. Patient states that she does not remember the events preceding the fall. She denies recent fever, chills, chest pain, nausea, vomiting and diarrhea. She was diagnosed with a pancreatic mass last year after presenting with nausea and vomiting in April 2019. CT scan of the abdomen and pelvis on 04/26/2019 revealed no evidence of bowel obstruction, moderate intrahepatic and extrahepatic biliary ductal dilatation. She underwent ERCP on 04/28/2019 which revealed narrowing of the very distal common bile duct with no focal filling defect. She was then evaluated by Dr. Jose Francisco Branch and the patient underwent Whipple procedure, specifically pyloric sparing pancreaticogastrostomy and G-tube placement on 05/08/2019. Pathology revealed invasive adenocarcinoma, biliary type, moderate to focally poorly differentiated, appearing to arise from the common bile duct with tumor invasion beyond the wall of the bile duct into adjacent soft tissues and focal minimal invasion of the attached pancreatic tissue. There was metastatic adenocarcinoma involving 1 out of 8 lymph nodes. Pathology from the duodenum and attached pancreas revealed focal invasive adenocarcinoma and 29 lymph nodes were negative. 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 She followed up with Dr Wilkerson outpatient and adjuvant chemotherapy was initiated but she did not tolerate it well and surveillance was therefore recommended. She has not seen a medical oncologist since Dr Wilkerson relocated offices. Past Medical History Cardiovascular: HTN, Hyperlipidemia Pulmonary: Pneumonia CENTRAL NERVOUS SYSTEM: Other (No pertinent history) GI: Constipation Heme/Onc: Cancer (cholangiocarcinoma) Hepatobiliary: No pertinent hx Psych: Anxiety Musculoskeletal: Osteoarthritis Rheumatologic: Fibromyalgia Infectious disease: No pertinent hx Renal/: Chronic renal insuff, Urinary Incontinence Endocrine: No pertinent hx Dermatology: No pertinent hx Past Surgical History Past Surgical History: Cholecystectomy (lap), Cataract Removal, Hysterectomy, Other (whipple; bladder tuck) Family History Family History: Diabetes Social History No ALCOHOL: none Drugs: None Lives: with Family Domestic Violence: Neg Current Problem List Problem List Problems Medical Problems: (1) Syncope Status: Acute Current Medications Current Medications Current Medications Ceftriaxone Sodium (Rocephin) 1 gm 1X ONCE IVP Last administered on 04/14/20at 00:05; Start 04/14/20 at 00:00; Stop 04/14/20 at 00:01; Status DC Ondansetron HCl (Zofran) 4 mg PRN Q8HRS PRN IV NAUSEA/VOMITING 1ST CHOICE; Start 04/14/20 at 00:15; Stop 04/15/20 at 00:14 Sodium Chloride 1,000 ml @ 100 mls/hr 1X ONCE IV Last administered on 04/14/20at 00:10; Start 04/14/20 at 00:30; Stop 04/14/20 at 10:29; Status DC Amitriptyline HCl (Elavil) 10 mg QHS PO Last administered on 04/14/20at 00:18; Start 04/14/20 at 01:00; Stop 04/14/20 at 10:20; Status DC Tramadol HCl (Ultram) 50 mg PRN Q6HRS PRN PO MODERATE PAIN 4-6 Last administered on 04/14/20at 01:19; Start 04/14/20 at 00:45; Stop 04/14/20 at 10:20; Status DC Amitriptyline HCl (Elavil) 50 mg QHS PO ; Start 04/14/20 at 21:00 Tramadol HCl (Ultram) 50 mg TID PO Last administered on 04/14/20at 13:16; Start 04/14/20 at 14:00 Ceftriaxone Sodium (Rocephin) 1 gm Q24H IVP Last administered on 04/14/20at 11:03; Start 04/14/20 at 11:00 Cholestyramine Resin (Questran Light) 4 gm BID@1000,2200 PO Last administered on 04/14/20at 11:02; Start 04/14/20 at 10:30 Sertraline HCl (Zoloft) 50 mg DAILY PO Last administered on 04/14/20at 11:01; Start 04/14/20 at 11:00 Hydroxyzine HCl (Atarax) 10 mg PRN TID PRN PO ITCHING; Start 04/14/20 at 10:15 Acetaminophen (Tylenol) 650 mg PRN Q6HRS PRN PO MILD PAIN / TEMP > 100.3'F; Start 04/14/20 at 10:15 Sodium Chloride 1,000 ml @ 40 mls/hr Q24H IV Last administered on 04/14/20at 11:01; Start 04/14/20 at 10:15 Ondansetron HCl (Zofran Odt) 4 mg PRN Q6HRS PRN PO NAUSEA/VOMITING; Start 04/14/20 at 10:30 Active Scripts Active Zoloft (Sertraline Hcl) 50 Mg Tablet 50 Mg PO DAILY Reported Amitriptyline Hcl 50 Mg Tablet 50 Mg PO QHS Klor-Con 10 (Potassium Chloride) 10 Meq Tablet.er 10 Meq PO DAILY Tramadol Hcl 50 Mg Tablet 100 Mg PO PRN TID PRN Furosemide 20 Mg Tablet 20 Mg PO DAILY Gabapentin 300 Mg Capsule 300 Mg PO TID Proctocream-Hc (Hydrocortisone) 30 Gm Cream..g. 1 Sim TP BID Hydroxyzine Hcl 10 Mg Tablet 10 Mg PO PRN TID PRN Allergies Allergies: Coded Allergies: Penicillins (Verified Allergy, Intermediate, 05/08/19) rash Sulfa (Sulfonamide Antibiotics) (Verified Allergy, Intermediate, Hives., 05/08/19) lisinopril (Verified Allergy, Intermediate, 05/08/19) ROS General: No: Chills, Night Sweats PSYCHOLOGICAL ROS: No: Anxiety, Behavioral Disorder Eyes: No Blurry vision, No Decreased vision HEENT: No: Heacaches, Visual Changes Hematological and Lymphatic: No: Bleeding Problems, Blood Clots ENDOCRINE: No: Breast Changes Respiratory: No: Cough, Hemoptysis Cardiovascular: No Chest Pain, No Palpitations Gastrointestinal: No Nausea, No Vomiting Genitourinary: No Dysuria, No Flank Pain Musculoskeletal: No Joint Pain Neurological: No Confusion, No Dizziness Skin: No Rash Physical Exam General: Alert, Oriented X3 HEENT: Atraumatic, PERRLA Lungs: Clear to auscultation Heart: Regular rate Abdomen: Normal bowel sounds, Soft Extremities: No clubbing, No cyanosis Skin: No rashes Neuro: Normal gait Psych/Mental Status: Mental status NL MUSCULOSKELETAL: No deformity, No swelling Vitals VITALS Vital Signs Date Time Temp Pulse Resp B/P (MAP) Pulse Ox O2 Delivery O2 Flow Rate FiO2 04/14/20 19:54 98.5 74 16 117/73 (88) 98 Room Air 98.5 Labs Labs Laboratory Tests Test 04/13/20 22:00 04/13/20 22:32 White Blood Count 6.4 x10^3/uL (4.0-11.0) Red Blood Count 3.34 x10^6/uL (3.50-5.40) Hemoglobin 10.2 g/dL (12.0-15.5) Hematocrit 29.6 % (36.0-47.0) Mean Corpuscular Volume 89 fL (79-100) Mean Corpuscular Hemoglobin 31 pg (25-35) Mean Corpuscular Hemoglobin Concent 34 g/dL (31-37) Red Cell Distribution Width 19.2 % (11.5-14.5) Platelet Count 352 x10^3/uL (140-400) Neutrophils (%) (Auto) 77 % (31-73) Lymphocytes (%) (Auto) 13 % (24-48) Monocytes (%) (Auto) 9 % (0-9) Eosinophils (%) (Auto) 1 % (0-3) Basophils (%) (Auto) 0 % (0-3) Neutrophils # (Auto) 4.9 x10^3/uL (1.8-7.7) Lymphocytes # (Auto) 0.9 x10^3/uL (1.0-4.8) Monocytes # (Auto) 0.6 x10^3/uL (0.0-1.1) Eosinophils # (Auto) 0.1 x10^3/uL (0.0-0.7) Basophils # (Auto) 0.0 x10^3/uL (0.0-0.2) Sodium Level 135 mmol/L (136-145) Potassium Level 3.5 mmol/L (3.5-5.1) Chloride Level 99 mmol/L (98-107) Carbon Dioxide Level 29 mmol/L (21-32) Anion Gap 7 (6-14) Blood Urea Nitrogen 13 mg/dL (7-20) Creatinine 1.0 mg/dL (0.6-1.0) Estimated GFR (Cockcroft-Gault) 53.1 BUN/Creatinine Ratio 13 (6-20) Glucose Level 121 mg/dL (70-99) Calcium Level 8.9 mg/dL (8.5-10.1) Total Bilirubin 3.7 mg/dL (0.2-1.0) Aspartate Amino Transf (AST/SGOT) 90 U/L (15-37) Alanine Aminotransferase (ALT/SGPT) 62 U/L (14-59) Alkaline Phosphatase 1344 U/L (46-116) Troponin I Quantitative < 0.017 ng/mL (0.000-0.055) Total Protein 7.8 g/dL (6.4-8.2) Albumin 2.8 g/dL (3.4-5.0) Albumin/Globulin Ratio 0.6 (1.0-1.7) Amylase Level 40 U/L (25-115) Lipase 162 U/L (73-393) Urine Collection Type Unknown Urine Color [place] Urine Clarity Cloudy Urine pH 6.0 (<5.0-8.0) Urine Specific [place] 1.020 (1.000-1.030) Urine Protein Negative mg/dL (NEG-TRACE) Urine Glucose (UA) Negative mg/dL (NEG) Urine Ketones (Stick) Trace mg/dL (NEG) Urine Blood Small (NEG) Urine Nitrite Negative (NEG) Urine Bilirubin Moderate (NEG) Urine Urobilinogen Dipstick 1.0 mg/dL (0.2 mg/dL) Urine Leukocyte Esterase Moderate (NEG) Urine RBC 3-5 /HPF (0-2) Urine WBC 11-20 /HPF (0-4) Urine Squamous Epithelial Cells Many /LPF Urine Amorphous Sediment Present /HPF Urine Bacteria Many /HPF (0-FEW) Urine Mucus Marked /LPF Laboratory Tests Test 04/13/20 22:00 04/13/20 22:32 White Blood Count 6.4 x10^3/uL (4.0-11.0) Red Blood Count 3.34 x10^6/uL (3.50-5.40) Hemoglobin 10.2 g/dL (12.0-15.5) Hematocrit 29.6 % (36.0-47.0) Mean Corpuscular Volume 89 fL (79-100) Mean Corpuscular Hemoglobin 31 pg (25-35) Mean Corpuscular Hemoglobin Concent 34 g/dL (31-37) Red Cell Distribution Width 19.2 % (11.5-14.5) Platelet Count 352 x10^3/uL (140-400) Neutrophils (%) (Auto) 77 % (31-73) Lymphocytes (%) (Auto) 13 % (24-48) Monocytes (%) (Auto) 9 % (0-9) Eosinophils (%) (Auto) 1 % (0-3) Basophils (%) (Auto) 0 % (0-3) Neutrophils # (Auto) 4.9 x10^3/uL (1.8-7.7) Lymphocytes # (Auto) 0.9 x10^3/uL (1.0-4.8) Monocytes # (Auto) 0.6 x10^3/uL (0.0-1.1) Eosinophils # (Auto) 0.1 x10^3/uL (0.0-0.7) Basophils # (Auto) 0.0 x10^3/uL (0.0-0.2) Sodium Level 135 mmol/L (136-145) Potassium Level 3.5 mmol/L (3.5-5.1) Chloride Level 99 mmol/L (98-107) Carbon Dioxide Level 29 mmol/L (21-32) Anion Gap 7 (6-14) Blood Urea Nitrogen 13 mg/dL (7-20) Creatinine 1.0 mg/dL (0.6-1.0) Estimated GFR (Cockcroft-Gault) 53.1 BUN/Creatinine Ratio 13 (6-20) Glucose Level 121 mg/dL (70-99) Calcium Level 8.9 mg/dL (8.5-10.1) Total Bilirubin 3.7 mg/dL (0.2-1.0) Aspartate Amino Transf (AST/SGOT) 90 U/L (15-37) Alanine Aminotransferase (ALT/SGPT) 62 U/L (14-59) Alkaline Phosphatase 1344 U/L (46-116) Troponin I Quantitative < 0.017 ng/mL (0.000-0.055) Total Protein 7.8 g/dL (6.4-8.2) Albumin 2.8 g/dL (3.4-5.0) Albumin/Globulin Ratio 0.6 (1.0-1.7) Amylase Level 40 U/L (25-115) Lipase 162 U/L (73-393) Urine Collection Type Unknown Urine Color [place] Urine Clarity Cloudy Urine pH 6.0 (<5.0-8.0) Urine Specific [place] 1.020 (1.000-1.030) Urine Protein Negative mg/dL (NEG-TRACE) Urine Glucose (UA) Negative mg/dL (NEG) Urine Ketones (Stick) Trace mg/dL (NEG) Urine Blood Small (NEG) Urine Nitrite Negative (NEG) Urine Bilirubin Moderate (NEG) Urine Urobilinogen Dipstick 1.0 mg/dL (0.2 mg/dL) Urine Leukocyte Esterase Moderate (NEG) Urine RBC 3-5 /HPF (0-2) Urine WBC 11-20 /HPF (0-4) Urine Squamous Epithelial Cells Many /LPF Urine Amorphous Sediment Present /HPF Urine Bacteria Many /HPF (0-FEW) Urine Mucus Marked /LPF Images Images Assessment: Extrahepatic Cholangiocarcinoma, [id number] s/p whipple's and no adjuvant chemotherapy Hyperbilirubinemia and pneumobilia-concern for cholangitis Diarrhea Syncope Normocytic anemia UTI Recommendations: - Agree with GI eval for hyperbilirubinemia and pneumobilia. Consider MRCP for further evaluation. - Continue abx for UTI/cholangitis per hospitalist service - Recommend iron studies, B12 and folate for anemia evaluation - Would require outpatient follow-up for continued surveillance of cholangiocarcinoma with CA19-[address] CAP[address] - CA19-9 would be acutely elevated in the setting of biliary obstruction and would be non-diagnostic at this time but can be obtained after resolution of her current presentation - Will follow Dell Ram MD Hem-Onc RIP RAM MD Apr 14, 2020 22:00
[2020-04-15 03:49] VITALS: BP 122/65
[2020-04-15 04:34] LABS: BASO % 0 % (0-3); EOS # 0.2 x10^3/uL (0.0-0.7); EOS % 3 % (0-3); HEMOGLOBIN 8.5 g/dL (12.0-15.5); LYMPH # 0.7 x10^3/uL (1.0-4.8); LYMPH % 15 % (24-48); MEAN CORPUSCULAR HEMOGLOBIN 30 pg (25-35); MEAN CORPUSCULAR HGB CONC 33 g/dL (31-37); MEAN CORPUSCULAR VOLUME 90 fL (79-100); MONO # 0.4 x10^3/uL (0.0-1.1); MONO % 9 % (0-9); NEUT # 3.3 x10^3/uL (1.8-7.7); NEUT % 73 % (31-73); PLATELET COUNT 273 x10^3/uL (140-400); RED CELL DISTRIBUTION WIDTH 19.3 % (11.5-14.5); WHITE BLOOD COUNT 4.5 x10^3/uL (4.0-11.0)
[2020-04-15 04:49] LABS: CALCIUM 8.4 mg/dL (8.5-10.1); CREATININE 0.9 mg/dL (0.6-1.0); GFR 59.9; MAGNESIUM 2.1 mg/dL (1.8-2.4); POTASSIUM 3.2 mmol/L (3.5-5.1)
[2020-04-15 07:00] VITALS: BP 131/67
[2020-04-15] MEDS: SERTRALINE 50 MG TABLET. PO SCH (08:37)
[2020-04-15] MEDS: traMADol 50 MG TABLET PO SCH ×3 (08:37→20:38)
[2020-04-15] MEDS: IV NORMAL SALINE 1000ML BAG 1,000 ML IV SCH (08:38)
[2020-04-15] MEDS: CHOLESTYRAMINE/ASPARTAME 4 GM PACKET PO SCH ×2 (10:00→20:39)
[2020-04-15] MEDS: cefTRIAXone IV Push 1 GM VIAL. IVP SCH (10:10)
--- NOTE | 2020-04-15 10:54 | PDOC ---
Objective: Objective: D/w nurse - no stools today. Vital Signs: Vital Signs Date Time Temp Pulse Resp B/P (MAP) Pulse Ox O2 Delivery O2 Flow Rate FiO2 04/15/20 08:00 Room Air 04/15/20 07:00 98.0 67 16 131/67 (88) 97 98.0 Labs: Laboratory Tests Test 04/14/20 16:45 04/15/20 03:40 CA 125 Antigen 265.6 U/mL White Blood Count 4.5 x10^3/uL Red Blood Count 2.90 x10^6/uL Hemoglobin 8.5 g/dL Hematocrit 26.0 % Mean Corpuscular Volume 90 fL Mean Corpuscular Hemoglobin 30 pg Mean Corpuscular Hemoglobin Concent 33 g/dL Red Cell Distribution Width 19.3 % Platelet Count 273 x10^3/uL Neutrophils (%) (Auto) 73 % Lymphocytes (%) (Auto) 15 % Monocytes (%) (Auto) 9 % Eosinophils (%) (Auto) 3 % Basophils (%) (Auto) 0 % Neutrophils # (Auto) 3.3 x10^3/uL Lymphocytes # (Auto) 0.7 x10^3/uL Monocytes # (Auto) 0.4 x10^3/uL Eosinophils # (Auto) 0.2 x10^3/uL Basophils # (Auto) 0.0 x10^3/uL Sodium Level 139 mmol/L Potassium Level 3.2 mmol/L Chloride Level 105 mmol/L Carbon Dioxide Level 24 mmol/L Anion Gap 10 Blood Urea Nitrogen 11 mg/dL Creatinine 0.9 mg/dL Estimated GFR (Cockcroft-Gault) 59.9 Glucose Level 98 mg/dL Calcium Level 8.4 mg/dL Magnesium Level 2.1 mg/dL FECAL WBC,GRAM STAIN Final WBCS NONE PRESENT Imaging: RUQ US 04/14 IMPRESSION: 1. Pneumobilia, similar to findings on prior CT scan. Mild dilatation of intrahepatic bile ducts, not unexpected given surgical history. 2. Mild ascites PE: GEN: NAD LUNGS: room air HEART: RRR ABD: non-distended NEURO/PSYCH: sleeping, not awakened A/P: Diarrhea - better? H/o cholangiocarcinoma s/p Whipple -- Awaiting other stool studies, fecal WBC as above. CA-125 elevated - ?peritoneal disease Will return later w/ Dr. Bingham. Justicifation of Admission Dx: Justifications for Admission: Justification of Admission Dx: Yes CORI PEDERSEN Apr 15, 2020 10:54
[2020-04-15 11:00] VITALS: BP 118/58
--- NOTE | 2020-04-15 11:10 | PDOC ---
PROGRESS NOTES Subjective Subjective still has diarrhea. stool for c. diff toxin pending. labs reviewed. potassium low 3.2. denies abdominal pain. no further fever. wbc okay. Objective Objective Vital Signs Date Time Temp Pulse Resp B/P (MAP) Pulse Ox O2 Delivery O2 Flow Rate FiO2 04/15/20 08:00 Room Air 04/15/20 07:00 98.0 67 16 131/67 (88) 97 98.0 Intake and Output0 04/15/20 07:00 Intake Total 800 ml Output Total 1000 ml Balance -200 ml Intake Oral 800 ml Output Urine Total 1000 ml # Voids 3 # Bowel Movements 2 Physical Exam Abdomen: Soft, No tenderness, Other (ascites) Heart: Regular rate, Normal S1, Normal S2 Extremities: No edema General: Alert HEENT: Atraumatic Lungs: Clear to auscultation Neuro: Normal gait Psych/Mental Status: Mental status NL Skin: No rashes Assessment Assessment Problems1. Suspected syncopal episode. 2. Urinary tract infection. 3. Fever, possibly secondary to urinary tract infection. 4. Cholangiocarcinoma. 5. Anemia of chronic disease. 6. Severe protein-calorie malnutrition. 7. Fatigue. 8. Fibromyalgia. 9. Status post Whipple's procedure. 10. Ascites, suspect it might be malignant given her history of cholangiocarcinoma. 11. Diarrhea. hypokalemia pneumobilia Medical Problems: (1) Syncope Status: Acute Plan Plan of Care await urine culture consult ID continue iv rocephin stool for c. diff toxin pending kcl today lab tomorrow continue iv fluids PT and OT continue cholestyramin pancreatic enzymes? defer to GI Comment Review of Relevant I have reviewed the following items betty (where applicable) has been applied. Labs Laboratory Tests Test 04/13/20 22:00 04/13/20 22:32 04/14/20 16:45 04/15/20 03:40 White Blood Count 6.4 x10^3/uL (4.0-11.0) 4.5 x10^3/uL (4.0-11.0) Red Blood Count 3.34 x10^6/uL (3.50-5.40) 2.90 x10^6/uL (3.50-5.40) Hemoglobin 10.2 g/dL (12.0-15.5) 8.5 g/dL (12.0-15.5) Hematocrit 29.6 % (36.0-47.0) 26.0 % (36.0-47.0) Mean Corpuscular Volume 89 fL (79-100) 90 fL (79-100) Mean Corpuscular Hemoglobin 31 pg (25-35) 30 pg (25-35) Mean Corpuscular Hemoglobin Concent 34 g/dL (31-37) 33 g/dL (31-37) Red Cell Distribution Width 19.2 % (11.5-14.5) 19.3 % (11.5-14.5) Platelet Count 352 x10^3/uL (140-400) 273 x10^3/uL (140-400) Neutrophils (%) (Auto) 77 % (31-73) 73 % (31-73) Lymphocytes (%) (Auto) 13 % (24-48) 15 % (24-48) Monocytes (%) (Auto) 9 % (0-9) 9 % (0-9) Eosinophils (%) (Auto) 1 % (0-3) 3 % (0-3) Basophils (%) (Auto) 0 % (0-3) 0 % (0-3) Neutrophils # (Auto) 4.9 x10^3/uL (1.8-7.7) 3.3 x10^3/uL (1.8-7.7) Lymphocytes # (Auto) 0.9 x10^3/uL (1.0-4.8) 0.7 x10^3/uL (1.0-4.8) Monocytes # (Auto) 0.6 x10^3/uL (0.0-1.1) 0.4 x10^3/uL (0.0-1.1) Eosinophils # (Auto) 0.1 x10^3/uL (0.0-0.7) 0.2 x10^3/uL (0.0-0.7) Basophils # (Auto) 0.0 x10^3/uL (0.0-0.2) 0.0 x10^3/uL (0.0-0.2) Sodium Level 135 mmol/L (136-145) 139 mmol/L (136-145) Potassium Level 3.5 mmol/L (3.5-5.1) 3.2 mmol/L (3.5-5.1) Chloride Level 99 mmol/L (98-107) 105 mmol/L (98-107) Carbon Dioxide Level 29 mmol/L (21-32) 24 mmol/L (21-32) Anion Gap 7 (6-14) 10 (6-14) Blood Urea Nitrogen 13 mg/dL (7-20) 11 mg/dL (7-20) Creatinine 1.0 mg/dL (0.6-1.0) 0.9 mg/dL (0.6-1.0) Estimated GFR (Cockcroft-Gault) 53.1 59.9 BUN/Creatinine Ratio 13 (6-20) Glucose Level 121 mg/dL (70-99) 98 mg/dL (70-99) Calcium Level 8.9 mg/dL (8.5-10.1) 8.4 mg/dL (8.5-10.1) Total Bilirubin 3.7 mg/dL (0.2-1.0) Aspartate Amino Transf (AST/SGOT) 90 U/L (15-37) Alanine Aminotransferase (ALT/SGPT) 62 U/L (14-59) Alkaline Phosphatase 1344 U/L (46-116) Troponin I Quantitative < 0.017 ng/mL (0.000-0.055) Total Protein 7.8 g/dL (6.4-8.2) Albumin 2.8 g/dL (3.4-5.0) Albumin/Globulin Ratio 0.6 (1.0-1.7) Amylase Level 40 U/L (25-115) Lipase 162 U/L (73-393) Urine Collection Type Unknown Urine Color [place] Urine Clarity Cloudy Urine pH 6.0 (<5.0-8.0) Urine Specific [place] 1.020 (1.000-1.030) Urine Protein Negative mg/dL (NEG-TRACE) Urine Glucose (UA) Negative mg/dL (NEG) Urine Ketones (Stick) Trace mg/dL (NEG) Urine Blood Small (NEG) Urine Nitrite Negative (NEG) Urine Bilirubin Moderate (NEG) Urine Urobilinogen Dipstick 1.0 mg/dL (0.2 mg/dL) Urine Leukocyte Esterase Moderate (NEG) Urine RBC 3-5 /HPF (0-2) Urine WBC 11-20 /HPF (0-4) Urine Squamous Epithelial Cells Many /LPF Urine Amorphous Sediment Present /HPF Urine Bacteria Many /HPF (0-FEW) Urine Mucus Marked /LPF CA 125 Antigen 265.6 U/mL (0.0-38.1) Magnesium Level 2.1 mg/dL (1.8-2.4) Laboratory Tests Test 04/14/20 16:45 04/15/20 03:40 CA 125 Antigen 265.6 U/mL (0.0-38.1) White Blood Count 4.5 x10^3/uL (4.0-11.0) Red Blood Count 2.90 x10^6/uL (3.50-5.40) Hemoglobin 8.5 g/dL (12.0-15.5) Hematocrit 26.0 % (36.0-47.0) Mean Corpuscular Volume 90 fL (79-100) Mean Corpuscular Hemoglobin 30 pg (25-35) Mean Corpuscular Hemoglobin Concent 33 g/dL (31-37) Red Cell Distribution Width 19.3 % (11.5-14.5) Platelet Count 273 x10^3/uL (140-400) Neutrophils (%) (Auto) 73 % (31-73) Lymphocytes (%) (Auto) 15 % (24-48) Monocytes (%) (Auto) 9 % (0-9) Eosinophils (%) (Auto) 3 % (0-3) Basophils (%) (Auto) 0 % (0-3) Neutrophils # (Auto) 3.3 x10^3/uL (1.8-7.7) Lymphocytes # (Auto) 0.7 x10^3/uL (1.0-4.8) Monocytes # (Auto) 0.4 x10^3/uL (0.0-1.1) Eosinophils # (Auto) 0.2 x10^3/uL (0.0-0.7) Basophils # (Auto) 0.0 x10^3/uL (0.0-0.2) Sodium Level 139 mmol/L (136-145) Potassium Level 3.2 mmol/L (3.5-5.1) Chloride Level 105 mmol/L (98-107) Carbon Dioxide Level 24 mmol/L (21-32) Anion Gap 10 (6-14) Blood Urea Nitrogen 11 mg/dL (7-20) Creatinine 0.9 mg/dL (0.6-1.0) Estimated GFR (Cockcroft-Gault) 59.9 Glucose Level 98 mg/dL (70-99) Calcium Level 8.4 mg/dL (8.5-10.1) Magnesium Level 2.1 mg/dL (1.8-2.4) Microbiology 04/14/20 Fecal Leukocyte Stain - Final, Complete Medications Current Medications Ceftriaxone Sodium (Rocephin) 1 gm 1X ONCE IVP Last administered on 04/14/20at 00:05; Start 04/14/20 at 00:00; Stop 04/14/20 at 00:01; Status DC Ondansetron HCl (Zofran) 4 mg PRN Q8HRS PRN IV NAUSEA/VOMITING 1ST CHOICE; Start 04/14/20 at 00:15; Stop 04/15/20 at 00:14; Status DC Sodium Chloride 1,000 ml @ 100 mls/hr 1X ONCE IV Last administered on 04/14/20at 00:10; Start 04/14/20 at 00:30; Stop 04/14/20 at 10:29; Status DC Amitriptyline HCl (Elavil) 10 mg QHS PO Last administered on 04/14/20at 00:18; Start 04/14/20 at 01:00; Stop 04/14/20 at 10:20; Status DC Tramadol HCl (Ultram) 50 mg PRN Q6HRS PRN PO MODERATE PAIN 4-6 Last administered on 04/14/20at 01:19; Start 04/14/20 at 00:45; Stop 04/14/20 at 10:20; Status DC Amitriptyline HCl (Elavil) 50 mg QHS PO Last administered on 04/14/20at 22:38; Start 04/14/20 at 21:00; Stop 04/15/20 at 08:53; Status DC Tramadol HCl (Ultram) 50 mg TID PO Last administered on 04/15/20at 08:37; Start 04/14/20 at 14:00 Ceftriaxone Sodium (Rocephin) 1 gm Q24H IVP Last administered on 04/15/20at 10:10; Start 04/14/20 at 11:00 Cholestyramine Resin (Questran Light) 4 gm BID@1000,2200 PO Last administered on 04/14/20at 11:02; Start 04/14/20 at 10:30 Sertraline HCl (Zoloft) 50 mg DAILY PO Last administered on 04/15/20at 08:37; Start 04/14/20 at 11:00 Hydroxyzine HCl (Atarax) 10 mg PRN TID PRN PO ITCHING; Start 04/14/20 at 10:15 Acetaminophen (Tylenol) 650 mg PRN Q6HRS PRN PO MILD PAIN / TEMP > 100.3'F; Start 04/14/20 at 10:15 Sodium Chloride 1,000 ml @ 40 mls/hr Q24H IV Last administered on 04/15/20at 08:38; Start 04/14/20 at 10:15 Ondansetron HCl (Zofran Odt) 4 mg PRN Q6HRS PRN PO NAUSEA/VOMITING; Start 04/14/20 at 10:30 Amitriptyline HCl (Elavil) 50 mg QHS PO ; Start 04/15/20 at 21:00 Active Scripts Active Zoloft (Sertraline Hcl) 50 Mg Tablet 50 Mg PO DAILY Reported Amitriptyline Hcl 50 Mg Tablet 50 Mg PO QHS Klor-Con 10 (Potassium Chloride) 10 Meq Tablet.er 10 Meq PO DAILY Tramadol Hcl 50 Mg Tablet 100 Mg PO PRN TID PRN Furosemide 20 Mg Tablet 20 Mg PO DAILY Gabapentin 300 Mg Capsule 300 Mg PO TID Proctocream-Hc (Hydrocortisone) 30 Gm Cream..g. 1 Sim TP BID Hydroxyzine Hcl 10 Mg Tablet 10 Mg PO PRN TID PRN Vitals/I & O Vital Sign - Last 24 Hours 04/14/20 04/14/20 04/14/20 04/14/20 13:16 14:26 15:16 19:54 Temp 98.5 98.5 98.5 98.5 Pulse 76 74 Resp 18 16 B/P (MAP) 97/52 (67) 117/73 (88) Pulse Ox 95 98 O2 Delivery Room Air Room Air Room Air Room Air 04/14/20 04/14/20 04/15/20 04/15/20 22:26 22:38 03:49 07:00 Temp 98.5 98.3 98.0 98.5 98.3 98.0 Pulse 77 72 67 Resp 16 16 16 B/P (MAP) 128/63 (84) 122/65 (84) 131/67 (88) Pulse Ox 98 97 97 O2 Delivery Room Air Room Air Room Air Room Air 04/15/20 08:00 O2 Delivery Room Air Intake and Output 04/14/20 04/14/20 04/15/20 15:00 23:00 07:00 Intake Total 240 ml 360 ml 200 ml Output Total 500 ml 500 ml Balance -260 ml -140 ml 200 ml Justicifation of Admission Dx: Justifications for Admission: Justification of Admission Dx: Yes SRINIVASA ABDULLAHI MD Apr 15, 2020 11:10
[2020-04-15] MEDS ORDERED: POTASSIUM CHLORIDE 20 MEQ TABLET.ER. PO ONE (11:15)
--- NOTE | 2020-04-15 12:47 | NUR ---
SS following up with discharge planning. SS reviewed pt chart and discussed with pt RN. Pt is currently on room air. Pt on IV Rocephin. PT recommended home with home healthcare. Nurse navigator met with pt to discuss. Per RN, they are waiting on results of stool cultures. SS will continue to follow for discharge planning.
--- NOTE | 2020-04-15 13:54 | CONS ---
DATE OF CONSULTATION: 04/15/2020 REFERRING PHYSICIAN: Genaro Perez MD REASON FOR CONSULTATION: Antibiotic management. 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 The patient was brought to the ER due to weakness and was found on the floor by her . The patient was quite weak for the last couple of weeks. She has diarrhea for almost a month. She was started on Creon one tablet t.i.d. with meals as her diarrhea was attributed to chronic pancreatic insufficiency. She denies any blood in stool. Denies any melena. She also had some dysuria with a temperature of 100.4 last night. She was started on IV Rocephin. She was found to have normal white count. UA shows pyuria. Hemoglobin of 8.5, platelets of 273. Her LFTs are elevated with total bilirubin at 3.7, AST of 90, ALT of 62, alkaline phosphatase of 1344, normal troponin. Albumin of 2.8, lipase of 162, amylase 40. Clostridium difficile has been ordered, which is pending. Enteric panel has been ordered, which is pending. Fecal leukocytes are negative. She underwent CT of the head, which showed no acute intracranial process. Chest x-ray showed trace blunting of the costophrenic angles bilaterally may represent trace pleural effusion or pleural thickening. Abdominal and pelvic CT showed postoperative changes in the right upper quadrant with pneumobilia, ascites, and soft tissue stranding. No free air to suggest bowel obstruction. The patient underwent ultrasound of the abdomen, which showed pneumobilia similar to findings on prior CT scan. Mild dilatation of the intrahepatic bile duct, not unexpected given surgical history of mild ascites. Today, the patient denies any fevers, chills, nausea, vomiting, headache, sore throat, difficulty swallowing, nausea. States has good appetite, has lost a lot of weight since last surgery in 04/2019. Has not gained much weight. Denies any joint pain. Does have DJD. Denies any rash. Denies being on any antibiotics since last surgery of 04/2019. The patient has had multiple falls at home per at bedside. PAST MEDICAL HISTORY: Cholangiocarcinoma for which she underwent Whipple's procedure, DJD, history of cholecystectomy, depression, hypertension, hyperlipidemia, fibromyalgia, history of pneumonia. SOCIAL HISTORY: Denies smoking, ETOH or illicit drug use. Retired. Her son is a practicing family physician in [place]. The patient has a dog. CURRENT MEDICATION: IV Rocephin. Other medications reviewed in medication list. FAMILY HISTORY: As per HPI. REVIEW OF SYSTEMS: Fever last night. Otherwise, as above. PHYSICAL EXAMINATION: VITAL SIGNS: T-max 100.4, current temperature 97.9, pulse 77, respiratory rate 16, blood pressure 118/58, oxygen saturation 97% on room air. GENERAL: Alert, oriented x 3 female, sitting at the edge of the bed, eating lunch, in no acute distress. HEENT: Normocephalic, atraumatic. Icterus present. No thrush. Oral mucosa moist. NECK: Supple, no JVD. LUNGS: Clear bilaterally. No wheezing. HEART: S1, S2, no murmurs. ABDOMEN: Distended, soft, nontender, bowel sounds present. EXTREMITIES: No edema, no cyanosis. MUSCULOSKELETAL: Changes of DJD. No swelling. DERMATOLOGIC: Warm, dry. No generalized rash. NEUROLOGIC: Alert and oriented x 3, grossly nonfocal. PSYCHIATRIC: Cooperative, appropriate mood and affect. LABORATORY DATA: WBC 4.5, hemoglobin 8.5, hematocrit 26, platelets 273. Sodium 139, potassium 3.2, chloride 105, bicarb 24, BUN 11, creatinine 0.9, glucose 98. Total bilirubin 3.7, AST 90, ALT 62, alkaline phosphatase 1344. Troponin normal. Amylase is 40, lipase 162. CA-125 of 265. UA shows small blood, moderate bilirubin, moderate leukocyte esterase, 11-20 wbc's. Micro urine culture pending. Clostridium difficile pending. Enteric panel pending. IMAGING: CT head as above. Chest x-ray as above. Abdominal and pelvic CT as above. Ultrasound of the abdomen as above. IMPRESSION: 1. Fever, source unclear, could be urinary tract infection. 2. Urinary tract infection poa, urine culture pending. 3. Suspected syncopal episode. 4. Cholangiocarcinoma, status post Whipple's, 04/2019. 5. Anemia of chronic disease. 6. Hyperbilirubinemia and abnormal LFTs secondary to pneumobilia. 4. Chronic diarrhea. Clostridium difficile and enteric panel pending. 5. Severe protein-calorie malnutrition. 6. Fatigue. 7. Anxiety. 8. On Sertraline. RECOMMENDATIONS: 1. Continue Rocephin. 2. Follow up cultures and lab. 3. Continue supportive care. 4. General Surgery, Oncology, GI are following. 5. Follow up Clostridium difficile and enteric panel. 6. Continue supportive care. Discussed with Nursing staff. D/W at bedside. Thank you, Dr. Perez, for consulting Infectious Disease to participate in this patient's care. If you have any questions, do not hesitate to contact me. JAKE CANDELARIA MD DR: EVA/valorie JOB#: [id number] / [id number] KAYLI
--- NOTE | 2020-04-15 14:07 | PDOC ---
TRUNG RUSH CHIEF WELLNESS OFFICER 04/15/20 1407: SURGICAL PROGRESS NOTE Subjective no complaints stools are more normal today Vital Signs Vital Signs Date Time Temp Pulse Resp B/P (MAP) Pulse Ox O2 Delivery O2 Flow Rate FiO2 04/15/20 11:00 97.9 77 16 118/58 (78) 97 Room Air 97.9 I&O Intake and Output 04/15/20 07:00 Intake Total 800 ml Output Total 1000 ml Balance -200 ml Intake Oral 800 ml Output Urine Total 1000 ml # Voids 3 # Bowel Movements 2 General: Alert, Oriented X3, Cooperative Abdomen: Soft, Other (ND, NTTP) Labs Laboratory Tests Test 04/13/20 22:00 04/13/20 22:32 04/14/20 16:45 04/15/20 03:40 White Blood Count 6.4 x10^3/uL (4.0-11.0) 4.5 x10^3/uL (4.0-11.0) Red Blood Count 3.34 x10^6/uL (3.50-5.40) 2.90 x10^6/uL (3.50-5.40) Hemoglobin 10.2 g/dL (12.0-15.5) 8.5 g/dL (12.0-15.5) Hematocrit 29.6 % (36.0-47.0) 26.0 % (36.0-47.0) Mean Corpuscular Volume 89 fL (79-100) 90 fL (79-100) Mean Corpuscular Hemoglobin 31 pg (25-35) 30 pg (25-35) Mean Corpuscular Hemoglobin Concent 34 g/dL (31-37) 33 g/dL (31-37) Red Cell Distribution Width 19.2 % (11.5-14.5) 19.3 % (11.5-14.5) Platelet Count 352 x10^3/uL (140-400) 273 x10^3/uL (140-400) Neutrophils (%) (Auto) 77 % (31-73) 73 % (31-73) Lymphocytes (%) (Auto) 13 % (24-48) 15 % (24-48) Monocytes (%) (Auto) 9 % (0-9) 9 % (0-9) Eosinophils (%) (Auto) 1 % (0-3) 3 % (0-3) Basophils (%) (Auto) 0 % (0-3) 0 % (0-3) Neutrophils # (Auto) 4.9 x10^3/uL (1.8-7.7) 3.3 x10^3/uL (1.8-7.7) Lymphocytes # (Auto) 0.9 x10^3/uL (1.0-4.8) 0.7 x10^3/uL (1.0-4.8) Monocytes # (Auto) 0.6 x10^3/uL (0.0-1.1) 0.4 x10^3/uL (0.0-1.1) Eosinophils # (Auto) 0.1 x10^3/uL (0.0-0.7) 0.2 x10^3/uL (0.0-0.7) Basophils # (Auto) 0.0 x10^3/uL (0.0-0.2) 0.0 x10^3/uL (0.0-0.2) Sodium Level 135 mmol/L (136-145) 139 mmol/L (136-145) Potassium Level 3.5 mmol/L (3.5-5.1) 3.2 mmol/L (3.5-5.1) Chloride Level 99 mmol/L (98-107) 105 mmol/L (98-107) Carbon Dioxide Level 29 mmol/L (21-32) 24 mmol/L (21-32) Anion Gap 7 (6-14) 10 (6-14) Blood Urea Nitrogen 13 mg/dL (7-20) 11 mg/dL (7-20) Creatinine 1.0 mg/dL (0.6-1.0) 0.9 mg/dL (0.6-1.0) Estimated GFR (Cockcroft-Gault) 53.1 59.9 BUN/Creatinine Ratio 13 (6-20) Glucose Level 121 mg/dL (70-99) 98 mg/dL (70-99) Calcium Level 8.9 mg/dL (8.5-10.1) 8.4 mg/dL (8.5-10.1) Total Bilirubin 3.7 mg/dL (0.2-1.0) Aspartate Amino Transf (AST/SGOT) 90 U/L (15-37) Alanine Aminotransferase (ALT/SGPT) 62 U/L (14-59) Alkaline Phosphatase 1344 U/L (46-116) Troponin I Quantitative < 0.017 ng/mL (0.000-0.055) Total Protein 7.8 g/dL (6.4-8.2) Albumin 2.8 g/dL (3.4-5.0) Albumin/Globulin Ratio 0.6 (1.0-1.7) Amylase Level 40 U/L (25-115) Lipase 162 U/L (73-393) Urine Collection Type Unknown Urine Color Kendall Urine Clarity Cloudy Urine pH 6.0 (<5.0-8.0) Urine Specific [place] 1.020 (1.000-1.030) Urine Protein Negative mg/dL (NEG-TRACE) Urine Glucose (UA) Negative mg/dL (NEG) Urine Ketones (Stick) Trace mg/dL (NEG) Urine Blood Small (NEG) Urine Nitrite Negative (NEG) Urine Bilirubin Moderate (NEG) Urine Urobilinogen Dipstick 1.0 mg/dL (0.2 mg/dL) Urine Leukocyte Esterase Moderate (NEG) Urine RBC 3-5 /HPF (0-2) Urine WBC 11-20 /HPF (0-4) Urine Squamous Epithelial Cells Many /LPF Urine Amorphous Sediment Present /HPF Urine Bacteria Many /HPF (0-FEW) Urine Mucus Marked /LPF CA 125 Antigen 265.6 U/mL (0.0-38.1) Magnesium Level 2.1 mg/dL (1.8-2.4) Laboratory Tests Test 04/14/20 16:45 04/15/20 03:40 CA 125 Antigen 265.6 U/mL (0.0-38.1) White Blood Count 4.5 x10^3/uL (4.0-11.0) Red Blood Count 2.90 x10^6/uL (3.50-5.40) Hemoglobin 8.5 g/dL (12.0-15.5) Hematocrit 26.0 % (36.0-47.0) Mean Corpuscular Volume 90 fL (79-100) Mean Corpuscular Hemoglobin 30 pg (25-35) Mean Corpuscular Hemoglobin Concent 33 g/dL (31-37) Red Cell Distribution Width 19.3 % (11.5-14.5) Platelet Count 273 x10^3/uL (140-400) Neutrophils (%) (Auto) 73 % (31-73) Lymphocytes (%) (Auto) 15 % (24-48) Monocytes (%) (Auto) 9 % (0-9) Eosinophils (%) (Auto) 3 % (0-3) Basophils (%) (Auto) 0 % (0-3) Neutrophils # (Auto) 3.3 x10^3/uL (1.8-7.7) Lymphocytes # (Auto) 0.7 x10^3/uL (1.0-4.8) Monocytes # (Auto) 0.4 x10^3/uL (0.0-1.1) Eosinophils # (Auto) 0.2 x10^3/uL (0.0-0.7) Basophils # (Auto) 0.0 x10^3/uL (0.0-0.2) Sodium Level 139 mmol/L (136-145) Potassium Level 3.2 mmol/L (3.5-5.1) Chloride Level 105 mmol/L (98-107) Carbon Dioxide Level 24 mmol/L (21-32) Anion Gap 10 (6-14) Blood Urea Nitrogen 11 mg/dL (7-20) Creatinine 0.9 mg/dL (0.6-1.0) Estimated GFR (Cockcroft-Gault) 59.9 Glucose Level 98 mg/dL (70-99) Calcium Level 8.4 mg/dL (8.5-10.1) Magnesium Level 2.1 mg/dL (1.8-2.4) Problem List Problems Medical Problems: (1) Syncope Status: Acute Assessment/Plan stool studies pending improved Justicifation of Admission Dx: Justifications for Admission: Justification of Admission Dx: Yes MATT CALLEJAS MD 04/15/20 1514: SURGICAL PROGRESS NOTE Assessment/Plan Pt seen and examined. Agree with Ms. Rush's note Pt feels better, has normal stool abd soft, ND, NTTP OK to work on d/c, per pt request TRUNG RUSH APRN Apr 15, 2020 14:07 MATT CALLEJAS MD Apr 15, 2020 15:14
[2020-04-15 15:00] VITALS: BP 124/70
--- NOTE | 2020-04-15 15:00 | NUR ---
Dr. Perez notified of patient positive C-DIFF result and of the orders received from Nupur Taylor for Vancomycin PO. No new orders received at this time.
[2020-04-15] MEDS: VANCOMYCIN 125 MG/2.5 ML ORAL SOLUTION. PO SCH ×2 (17:38→20:37)
[2020-04-15 19:40] VITALS: BP 118/67
[2020-04-15] MEDS ORDERED: AMITRIPTYLINE HCL 25 MG TABLET. PO SCH (21:00)
[2020-04-15 22:52] VITALS: BP 115/69
[2020-04-16 03:55] VITALS: BP 110/68
[2020-04-16 04:44] LABS: BASO % 1 % (0-3); EOS # 0.1 x10^3/uL (0.0-0.7); EOS % 4 % (0-3); HEMATOCRIT 25.2 % (36.0-47.0); HEMOGLOBIN 8.5 g/dL (12.0-15.5); LYMPH # 0.8 x10^3/uL (1.0-4.8); LYMPH % 21 % (24-48); MEAN CORPUSCULAR HEMOGLOBIN 30 pg (25-35); MEAN CORPUSCULAR HGB CONC 34 g/dL (31-37); MEAN CORPUSCULAR VOLUME 90 fL (79-100); MONO # 0.3 x10^3/uL (0.0-1.1); MONO % 9 % (0-9); NEUT # 2.6 x10^3/uL (1.8-7.7); NEUT % 67 % (31-73); PLATELET COUNT 281 x10^3/uL (140-400); RED BLOOD COUNT 2.81 x10^6/uL (3.50-5.40); RED CELL DISTRIBUTION WIDTH 19.3 % (11.5-14.5); WHITE BLOOD COUNT 3.9 x10^3/uL (4.0-11.0)
[2020-04-16 04:53] LABS: CALCIUM 8.3 mg/dL (8.5-10.1); CREATININE 0.8 mg/dL (0.6-1.0); GFR 68.7; MAGNESIUM 2.1 mg/dL (1.8-2.4); POTASSIUM 3.5 mmol/L (3.5-5.1)
[2020-04-16 05:02] LABS: ALBUMIN 2.1 g/dL (3.4-5.0); DIRECT BILIRUBIN 1.5 mg/dL (0.0-0.2); TOTAL BILIRUBIN 1.6 mg/dL (0.2-1.0); TOTAL PROTEIN 6.1 g/dL (6.4-8.2)
--- NOTE | 2020-04-16 06:48 | NUR ---
IP: Pt is C.diff + requiring contact plus precautions using brown sign.
[2020-04-16 07:00] VITALS: BP 122/70
--- NOTE | 2020-04-16 08:12 | PDOC ---
Infectious Disease Note Subjective: Subjective Patient feels better Had formed stool today Denies fever, nausea, vomiting, shortness of breath, diarrhea, abdominal pain, rash Otherwise as above Vital Signs: Vital Signs Vital Signs Date Time Temp Pulse Resp B/P (MAP) Pulse Ox O2 Delivery O2 Flow Rate FiO2 04/16/20 03:55 97.8 71 16 110/68 (82) 93 Room Air 97.8 Physical Exam: PHYSICAL EXAM GENERAL: Alert, oriented x 3 female, sitting at the edge of the bed, eating lunch, in no acute distress. HEENT: Normocephalic, atraumatic. Icterus present. No thrush. Oral mucosa moist. NECK: Supple, no JVD. LUNGS: Clear bilaterally. No wheezing. HEART: S1, S2, no murmurs. ABDOMEN: Distended, soft, nontender, bowel sounds present. EXTREMITIES: No edema, no cyanosis. MUSCULOSKELETAL: Changes of DJD. No swelling. DERMATOLOGIC: Warm, dry. No generalized rash. NEUROLOGIC: Alert and oriented x 3, grossly nonfocal. PSYCHIATRIC: Cooperative, appropriate mood and affect. Medications: Inpatient Meds: Current Medications Medications (Trade) Dose Ordered Sig/Meka Start Time Stop Time Status Last Admin Dose Admin Acetaminophen (Tylenol) 650 mg PRN Q6HRS PRN 04/14/20 10:15 Amitriptyline HCl (Elavil) 50 mg QHS 04/15/20 21:00 04/15/20 20:37 50 MG Ceftriaxone Sodium (Rocephin) 1 gm Q24H 04/14/20 11:00 04/15/20 10:10 1 GM Cholestyramine Resin (Questran Light) 4 gm BID@1000,2200 04/14/20 10:30 04/14/20 11:02 4 GM Hydroxyzine HCl (Atarax) 10 mg PRN TID PRN 04/14/20 10:15 04/16/20 04:36 10 MG Ondansetron HCl (Zofran Odt) 4 mg PRN Q6HRS PRN 04/14/20 10:30 Ondansetron HCl (Zofran) 4 mg PRN Q8HRS PRN 04/14/20 00:15 04/15/20 00:14 DC Potassium Chloride (Klor-Con) 40 meq 1X ONCE 7/23/20 11:15 04/15/20 11:16 DC 04/15/20 11:48 40 MEQ Sertraline HCl (Zoloft) 50 mg DAILY 04/14/20 11:00 04/15/20 08:37 50 MG Sodium Chloride 1,000 ml @ 40 mls/hr Q24H 04/14/20 10:15 04/15/20 08:38 40 MLS/HR Tramadol HCl (Ultram) 50 mg TID 04/14/20 14:00 04/15/20 20:38 50 MG Vancomycin HCl (Vancomycin Oral Solution) 125 mg [id number] 04/15/20 17:00 04/15/20 20:37 125 MG Labs: Lab Laboratory Tests Test 04/16/20 04:15 White Blood Count 3.9 x10^3/uL (4.0-11.0) Red Blood Count 2.81 x10^6/uL (3.50-5.40) Hemoglobin 8.5 g/dL (12.0-15.5) Hematocrit 25.2 % (36.0-47.0) Mean Corpuscular Volume 90 fL (79-100) Mean Corpuscular Hemoglobin 30 pg (25-35) Mean Corpuscular Hemoglobin Concent 34 g/dL (31-37) Red Cell Distribution Width 19.3 % (11.5-14.5) Platelet Count 281 x10^3/uL (140-400) Neutrophils (%) (Auto) 67 % (31-73) Lymphocytes (%) (Auto) 21 % (24-48) Monocytes (%) (Auto) 9 % (0-9) Eosinophils (%) (Auto) 4 % (0-3) Basophils (%) (Auto) 1 % (0-3) Neutrophils # (Auto) 2.6 x10^3/uL (1.8-7.7) Lymphocytes # (Auto) 0.8 x10^3/uL (1.0-4.8) Monocytes # (Auto) 0.3 x10^3/uL (0.0-1.1) Eosinophils # (Auto) 0.1 x10^3/uL (0.0-0.7) Basophils # (Auto) 0.0 x10^3/uL (0.0-0.2) Sodium Level 140 mmol/L (136-145) Potassium Level 3.5 mmol/L (3.5-5.1) Chloride Level 107 mmol/L (98-107) Carbon Dioxide Level 22 mmol/L (21-32) Anion Gap 11 (6-14) Blood Urea Nitrogen 10 mg/dL (7-20) Creatinine 0.8 mg/dL (0.6-1.0) Estimated GFR (Cockcroft-Gault) 68.7 Glucose Level 84 mg/dL (70-99) Calcium Level 8.3 mg/dL (8.5-10.1) Magnesium Level 2.1 mg/dL (1.8-2.4) Total Bilirubin 1.6 mg/dL (0.2-1.0) Direct Bilirubin 1.5 mg/dL (0.0-0.2) Aspartate Amino Transf (AST/SGOT) 58 U/L (15-37) Alanine Aminotransferase (ALT/SGPT) 40 U/L (14-59) Alkaline Phosphatase 934 U/L (46-116) Total Protein 6.1 g/dL (6.4-8.2) Albumin 2.1 g/dL (3.4-5.0) Objective: Assessment: Fever source UTI Klebsiella pneumonia UTI C. difficile colitis Suspected syncopal episode. History cholangiocarcinoma, status post Whipple's, 04/2019. Ascites Anemia of chronic disease. Hyperbilirubinemia and abnormal LFTs secondary to pneumobilia. Severe protein-calorie malnutrition. Fatigue. Anxiety.On Sertraline. Plan: Plan of Care Continue Rocephin Continue p.o. vancomycin Follow up cultures and lab. Continue supportive care. Discussed with Nursing staff. JAKE CANDELARIA MD Apr 16, 2020 08:12
[2020-04-16] MEDS: VANCOMYCIN 125 MG/2.5 ML ORAL SOLUTION. PO SCH ×2 (08:49→12:55)
[2020-04-16] MEDS: SERTRALINE 50 MG TABLET. PO SCH (08:51)
[2020-04-16] MEDS: traMADol 50 MG TABLET PO SCH ×2 (08:52→12:56)
[2020-04-16] MEDS: CHOLESTYRAMINE/ASPARTAME 4 GM PACKET PO SCH (08:52)
[2020-04-16] MEDS: IV NORMAL SALINE 1000ML BAG 1,000 ML IV SCH (09:50)
--- NOTE | 2020-04-16 10:59 | PDOC ---
Subjective: Subjective: No diarrhea. Feeling better. Would like to go home. Objective: Vital Signs: Vital Signs Date Time Temp Pulse Resp B/P (MAP) Pulse Ox O2 Delivery O2 Flow Rate FiO2 04/16/20 09:55 16 Room Air 04/16/20 08:52 98 04/16/20 07:00 98.1 65 122/70 (87) 98.1 Labs: Laboratory Tests Test 04/16/20 04:15 White Blood Count 3.9 x10^3/uL Red Blood Count 2.81 x10^6/uL Hemoglobin 8.5 g/dL Hematocrit 25.2 % Mean Corpuscular Volume 90 fL Mean Corpuscular Hemoglobin 30 pg Mean Corpuscular Hemoglobin Concent 34 g/dL Red Cell Distribution Width 19.3 % Platelet Count 281 x10^3/uL Neutrophils (%) (Auto) 67 % Lymphocytes (%) (Auto) 21 % Monocytes (%) (Auto) 9 % Eosinophils (%) (Auto) 4 % Basophils (%) (Auto) 1 % Neutrophils # (Auto) 2.6 x10^3/uL Lymphocytes # (Auto) 0.8 x10^3/uL Monocytes # (Auto) 0.3 x10^3/uL Eosinophils # (Auto) 0.1 x10^3/uL Basophils # (Auto) 0.0 x10^3/uL Sodium Level 140 mmol/L Potassium Level 3.5 mmol/L Chloride Level 107 mmol/L Carbon Dioxide Level 22 mmol/L Anion Gap 11 Blood Urea Nitrogen 10 mg/dL Creatinine 0.8 mg/dL Estimated GFR (Cockcroft-Gault) 68.7 Glucose Level 84 mg/dL Calcium Level 8.3 mg/dL Magnesium Level 2.1 mg/dL Total Bilirubin 1.6 mg/dL Direct Bilirubin 1.5 mg/dL Aspartate Amino Transf (AST/SGOT) 58 U/L Alanine Aminotransferase (ALT/SGPT) 40 U/L Alkaline Phosphatase 934 U/L Total Protein 6.1 g/dL Albumin 2.1 g/dL PE: GEN: NAD LUNGS: CTAB HEART: RRR ABD: soft, non-tender NEURO/PSYCH: A & O 3 A/P: C Diff - diarrhea better, PO vanco started yesterday H/o cholangiocarcinoma s/p Whipple - ?malignant ascites on CT, elevated CA-125 Elevated LFTs - better UTI -- She'd like to discharge soon - will review any additional inpt GI recs w/ Dr. Bingham. Justicifation of Admission Dx: Justifications for Admission: Justification of Admission Dx: Yes CORI PEDERSEN Apr 16, 2020 10:59
[2020-04-16] MEDS: cefTRIAXone IV Push 1 GM VIAL. IVP SCH (11:00)
[2020-04-16 11:02] VITALS: BP 124/61
--- NOTE | 2020-04-16 11:59 | PDOC ---
CARDIO Progress Notes Date and Time Date of Service 04/16/2020 Time of Evaluation 1000 Subjective Subjective: No Chest Pain, No shortness of breath, No Palpitations Vitals Vitals Vital Signs Date Time Temp Pulse Resp B/P (MAP) Pulse Ox O2 Delivery O2 Flow Rate FiO2 04/16/20 11:02 98.1 68 18 124/61 (82) 99 Room Air 98.1 Weight Weight [ ] Input and Output Intake and Output Intake and Output 04/16/20 07:00 Intake Total 300 ml Output Total 450 ml Balance -150 ml Intake Oral 300 ml Output Urine Total 450 ml # Voids 7 # Bowel Movements 1 Laboratory Labs Laboratory Tests Test 04/16/20 04:15 White Blood Count 3.9 x10^3/uL (4.0-11.0) Red Blood Count 2.81 x10^6/uL (3.50-5.40) Hemoglobin 8.5 g/dL (12.0-15.5) Hematocrit 25.2 % (36.0-47.0) Mean Corpuscular Volume 90 fL (79-100) Mean Corpuscular Hemoglobin 30 pg (25-35) Mean Corpuscular Hemoglobin Concent 34 g/dL (31-37) Red Cell Distribution Width 19.3 % (11.5-14.5) Platelet Count 281 x10^3/uL (140-400) Neutrophils (%) (Auto) 67 % (31-73) Lymphocytes (%) (Auto) 21 % (24-48) Monocytes (%) (Auto) 9 % (0-9) Eosinophils (%) (Auto) 4 % (0-3) Basophils (%) (Auto) 1 % (0-3) Neutrophils # (Auto) 2.6 x10^3/uL (1.8-7.7) Lymphocytes # (Auto) 0.8 x10^3/uL (1.0-4.8) Monocytes # (Auto) 0.3 x10^3/uL (0.0-1.1) Eosinophils # (Auto) 0.1 x10^3/uL (0.0-0.7) Basophils # (Auto) 0.0 x10^3/uL (0.0-0.2) Sodium Level 140 mmol/L (136-145) Potassium Level 3.5 mmol/L (3.5-5.1) Chloride Level 107 mmol/L (98-107) Carbon Dioxide Level 22 mmol/L (21-32) Anion Gap 11 (6-14) Blood Urea Nitrogen 10 mg/dL (7-20) Creatinine 0.8 mg/dL (0.6-1.0) Estimated GFR (Cockcroft-Gault) 68.7 Glucose Level 84 mg/dL (70-99) Calcium Level 8.3 mg/dL (8.5-10.1) Magnesium Level 2.1 mg/dL (1.8-2.4) Total Bilirubin 1.6 mg/dL (0.2-1.0) Direct Bilirubin 1.5 mg/dL (0.0-0.2) Aspartate Amino Transf (AST/SGOT) 58 U/L (15-37) Alanine Aminotransferase (ALT/SGPT) 40 U/L (14-59) Alkaline Phosphatase 934 U/L (46-116) Total Protein 6.1 g/dL (6.4-8.2) Albumin 2.1 g/dL (3.4-5.0) Microbiology Micro Microbiology 04/14/20 Fecal Leukocyte Stain - Final, Complete 04/13/20 Urine Culture - Final, Complete 04/13/20 Antimicrobic Susceptibility - Final, Complete Physical Exam HEENT: Neck Supple W Full Motion Chest: Symmetric LUNGS: Clear to Auscultation Heart: S1S2, RRR (SR) Abdomen: Other (tender abd with palpation) Extremities: No Calf Tenderness Neurology: alert, oriented, follow commands Assessment Assessment 1. Weakness with nontraumatic mechanical fall: doubt cardiac related and doubt syncopal episode. No related arrhythmias. 2. Hx of cholangiocarcinoma with past whipple 3. Diarrhea: +Cdiff 4. Dysequilibrium: would suspect her medications would contribute to this namely, TCAs analgesic, lyrica, and zoloft combination 5. UTI/fever Recommendations 1. Caution with QT prolonging medications. Recent TTE reviewed, Cardiac howell stable, no arrhythmias. no further cardiac workup 2. IVF/antibiotics, consult GI Justicifation of Admission Dx: Justifications for Admission: Justification of Admission Dx: Yes COLEEN BARAHONA APRN Apr 16, 2020 11:59
--- NOTE | 2020-04-16 12:47 | PDOC ---
SURGICAL PROGRESS NOTE Subjective no complaints wants to go home Vital Signs Vital Signs Date Time Temp Pulse Resp B/P (MAP) Pulse Ox O2 Delivery O2 Flow Rate FiO2 04/16/20 11:02 98.1 68 18 124/61 (82) 99 Room Air 98.1 I&O Intake and Output 04/16/20 07:00 Intake Total 300 ml Output Total 450 ml Balance -150 ml Intake Oral 300 ml Output Urine Total 450 ml # Voids 7 # Bowel Movements 1 General: Alert, Oriented X3, Cooperative Abdomen: Soft, No tenderness Labs Laboratory Tests Test 04/14/20 15:40 04/14/20 16:45 04/15/20 03:40 04/16/20 04:15 Stool Campylobacter PCR Negative (NEGATIVE) Stool E. coli Shiga Toxins (PCR) Negative (NEGATIVE) Stool Salmonella PCR Negative (NEGATIVE) Stool Shigella PCR Negative (NEGATIVE) Clostridium difficile Toxin (PCR) Positive (NEGATIVE) CA 125 Antigen 265.6 U/mL (0.0-38.1) White Blood Count 4.5 x10^3/uL (4.0-11.0) 3.9 x10^3/uL (4.0-11.0) Red Blood Count 2.90 x10^6/uL (3.50-5.40) 2.81 x10^6/uL (3.50-5.40) Hemoglobin 8.5 g/dL (12.0-15.5) 8.5 g/dL (12.0-15.5) Hematocrit 26.0 % (36.0-47.0) 25.2 % (36.0-47.0) Mean Corpuscular Volume 90 fL (79-100) 90 fL (79-100) Mean Corpuscular Hemoglobin 30 pg (25-35) 30 pg (25-35) Mean Corpuscular Hemoglobin Concent 33 g/dL (31-37) 34 g/dL (31-37) Red Cell Distribution Width 19.3 % (11.5-14.5) 19.3 % (11.5-14.5) Platelet Count 273 x10^3/uL (140-400) 281 x10^3/uL (140-400) Neutrophils (%) (Auto) 73 % (31-73) 67 % (31-73) Lymphocytes (%) (Auto) 15 % (24-48) 21 % (24-48) Monocytes (%) (Auto) 9 % (0-9) 9 % (0-9) Eosinophils (%) (Auto) 3 % (0-3) 4 % (0-3) Basophils (%) (Auto) 0 % (0-3) 1 % (0-3) Neutrophils # (Auto) 3.3 x10^3/uL (1.8-7.7) 2.6 x10^3/uL (1.8-7.7) Lymphocytes # (Auto) 0.7 x10^3/uL (1.0-4.8) 0.8 x10^3/uL (1.0-4.8) Monocytes # (Auto) 0.4 x10^3/uL (0.0-1.1) 0.3 x10^3/uL (0.0-1.1) Eosinophils # (Auto) 0.2 x10^3/uL (0.0-0.7) 0.1 x10^3/uL (0.0-0.7) Basophils # (Auto) 0.0 x10^3/uL (0.0-0.2) 0.0 x10^3/uL (0.0-0.2) Sodium Level 139 mmol/L (136-145) 140 mmol/L (136-145) Potassium Level 3.2 mmol/L (3.5-5.1) 3.5 mmol/L (3.5-5.1) Chloride Level 105 mmol/L (98-107) 107 mmol/L (98-107) Carbon Dioxide Level 24 mmol/L (21-32) 22 mmol/L (21-32) Anion Gap 10 (6-14) 11 (6-14) Blood Urea Nitrogen 11 mg/dL (7-20) 10 mg/dL (7-20) Creatinine 0.9 mg/dL (0.6-1.0) 0.8 mg/dL (0.6-1.0) Estimated GFR (Cockcroft-Gault) 59.9 68.7 Glucose Level 98 mg/dL (70-99) 84 mg/dL (70-99) Calcium Level 8.4 mg/dL (8.5-10.1) 8.3 mg/dL (8.5-10.1) Magnesium Level 2.1 mg/dL (1.8-2.4) 2.1 mg/dL (1.8-2.4) Total Bilirubin 1.6 mg/dL (0.2-1.0) Direct Bilirubin 1.5 mg/dL (0.0-0.2) Aspartate Amino Transf (AST/SGOT) 58 U/L (15-37) Alanine Aminotransferase (ALT/SGPT) 40 U/L (14-59) Alkaline Phosphatase 934 U/L (46-116) Total Protein 6.1 g/dL (6.4-8.2) Albumin 2.1 g/dL (3.4-5.0) Laboratory Tests Test 04/16/20 04:15 White Blood Count 3.9 x10^3/uL (4.0-11.0) Red Blood Count 2.81 x10^6/uL (3.50-5.40) Hemoglobin 8.5 g/dL (12.0-15.5) Hematocrit 25.2 % (36.0-47.0) Mean Corpuscular Volume 90 fL (79-100) Mean Corpuscular Hemoglobin 30 pg (25-35) Mean Corpuscular Hemoglobin Concent 34 g/dL (31-37) Red Cell Distribution Width 19.3 % (11.5-14.5) Platelet Count 281 x10^3/uL (140-400) Neutrophils (%) (Auto) 67 % (31-73) Lymphocytes (%) (Auto) 21 % (24-48) Monocytes (%) (Auto) 9 % (0-9) Eosinophils (%) (Auto) 4 % (0-3) Basophils (%) (Auto) 1 % (0-3) Neutrophils # (Auto) 2.6 x10^3/uL (1.8-7.7) Lymphocytes # (Auto) 0.8 x10^3/uL (1.0-4.8) Monocytes # (Auto) 0.3 x10^3/uL (0.0-1.1) Eosinophils # (Auto) 0.1 x10^3/uL (0.0-0.7) Basophils # (Auto) 0.0 x10^3/uL (0.0-0.2) Sodium Level 140 mmol/L (136-145) Potassium Level 3.5 mmol/L (3.5-5.1) Chloride Level 107 mmol/L (98-107) Carbon Dioxide Level 22 mmol/L (21-32) Anion Gap 11 (6-14) Blood Urea Nitrogen 10 mg/dL (7-20) Creatinine 0.8 mg/dL (0.6-1.0) Estimated GFR (Cockcroft-Gault) 68.7 Glucose Level 84 mg/dL (70-99) Calcium Level 8.3 mg/dL (8.5-10.1) Magnesium Level 2.1 mg/dL (1.8-2.4) Total Bilirubin 1.6 mg/dL (0.2-1.0) Direct Bilirubin 1.5 mg/dL (0.0-0.2) Aspartate Amino Transf (AST/SGOT) 58 U/L (15-37) Alanine Aminotransferase (ALT/SGPT) 40 U/L (14-59) Alkaline Phosphatase 934 U/L (46-116) Total Protein 6.1 g/dL (6.4-8.2) Albumin 2.1 g/dL (3.4-5.0) Problem List Problems Medical Problems: (1) Syncope Status: Acute Assessment/Plan c diff treatment no surgical plans will review with Dr Sarina Chuicifation of Admission Dx: Justifications for Admission: Justification of Admission Dx: Yes TRUNG [facility]USH DENTAL NURSE Apr 16, 2020 12:47
--- NOTE | 2020-04-16 13:27 | NUR ---
SS following up with discharge planning. SS reviewed pt chart and discussed with pt RN. Pt is currently on room air. Pt on IV Rocephin. PT recommended home with home healthcare. SS met with pt and discussed discharge planning. Pt reported that she will return to home and her granddaughter will aid her at home. Pt declined home healthcare. Physician notified. SS will continue to follow for discharge planning.
--- NOTE | 2020-04-16 13:57 | PDOC ---
PROGRESS NOTES Subjective Subjective feels better. stool formed yesterday and no BM today. wants to go home. feels well. lab reviewed.stool positive for c. diff and taking oral vancomycin. urine culture grew klebsiella sensitive to rocephin Objective Objective Vital Signs Date Time Temp Pulse Resp B/P (MAP) Pulse Ox O2 Delivery O2 Flow Rate FiO2 04/16/20 12:56 16 99 Room Air 04/16/20 11:02 98.1 68 124/61 (82) 98.1 Intake and Output 04/16/20 07:00 Intake Total 300 ml Output Total 450 ml Balance -150 ml Intake Oral 300 ml Output Urine Total 450 ml # Voids 7 # Bowel Movements 1 Physical Exam Abdomen: Soft, No tenderness Heart: Regular rate, Normal S1, Normal S2 Extremities: No edema General: Alert HEENT: Atraumatic Lungs: Clear to auscultation Neuro: Normal speech Psych/Mental Status: Mental status NL Skin: No rashes Assessment Assessment Problems Klebsiella urinary tract infection. 3. clostridium difficile colitis 4. Cholangiocarcinoma. 5. Anemia of chronic disease. 6. Severe protein-calorie malnutrition. 7. Fatigue. 8. Fibromyalgia. 9. Status post Whipple's procedure. 10. Ascites, suspect it might be malignant given her history of cholangiocarcinoma. 11. Diarrhea.resolved hypokalemia resolved pneumobilia Medical Problems: (1) Syncope Status: Acute Plan Plan of Care discussed with dr nkechi Taylor. will dismiss on a 10 day course of oral metronidazole and 5 day course of keflex Comment Review of Relevant I have reviewed the following items betty (where applicable) has been applied. Labs Laboratory Tests Test 04/14/20 15:40 04/14/20 16:45 04/15/20 03:40 04/16/20 04:15 Stool Campylobacter PCR Negative (NEGATIVE) Stool E. coli Shiga Toxins (PCR) Negative (NEGATIVE) Stool Salmonella PCR Negative (NEGATIVE) Stool Shigella PCR Negative (NEGATIVE) Clostridium difficile Toxin (PCR) Positive (NEGATIVE) CA 125 Antigen 265.6 U/mL (0.0-38.1) White Blood Count 4.5 x10^3/uL (4.0-11.0) 3.9 x10^3/uL (4.0-11.0) Red Blood Count 2.90 x10^6/uL (3.50-5.40) 2.81 x10^6/uL (3.50-5.40) Hemoglobin 8.5 g/dL (12.0-15.5) 8.5 g/dL (12.0-15.5) Hematocrit 26.0 % (36.0-47.0) 25.2 % (36.0-47.0) Mean Corpuscular Volume 90 fL (79-100) 90 fL (79-100) Mean Corpuscular Hemoglobin 30 pg (25-35) 30 pg (25-35) Mean Corpuscular Hemoglobin Concent 33 g/dL (31-37) 34 g/dL (31-37) Red Cell Distribution Width 19.3 % (11.5-14.5) 19.3 % (11.5-14.5) Platelet Count 273 x10^3/uL (140-400) 281 x10^3/uL (140-400) Neutrophils (%) (Auto) 73 % (31-73) 67 % (31-73) Lymphocytes (%) (Auto) 15 % (24-48) 21 % (24-48) Monocytes (%) (Auto) 9 % (0-9) 9 % (0-9) Eosinophils (%) (Auto) 3 % (0-3) 4 % (0-3) Basophils (%) (Auto) 0 % (0-3) 1 % (0-3) Neutrophils # (Auto) 3.3 x10^3/uL (1.8-7.7) 2.6 x10^3/uL (1.8-7.7) Lymphocytes # (Auto) 0.7 x10^3/uL (1.0-4.8) 0.8 x10^3/uL (1.0-4.8) Monocytes # (Auto) 0.4 x10^3/uL (0.0-1.1) 0.3 x10^3/uL (0.0-1.1) Eosinophils # (Auto) 0.2 x10^3/uL (0.0-0.7) 0.1 x10^3/uL (0.0-0.7) Basophils # (Auto) 0.0 x10^3/uL (0.0-0.2) 0.0 x10^3/uL (0.0-0.2) Sodium Level 139 mmol/L (136-145) 140 mmol/L (136-145) Potassium Level 3.2 mmol/L (3.5-5.1) 3.5 mmol/L (3.5-5.1) Chloride Level 105 mmol/L (98-107) 107 mmol/L (98-107) Carbon Dioxide Level 24 mmol/L (21-32) 22 mmol/L (21-32) Anion Gap 10 (6-14) 11 (6-14) Blood Urea Nitrogen 11 mg/dL (7-20) 10 mg/dL (7-20) Creatinine 0.9 mg/dL (0.6-1.0) 0.8 mg/dL (0.6-1.0) Estimated GFR (Cockcroft-Gault) 59.9 68.7 Glucose Level 98 mg/dL (70-99) 84 mg/dL (70-99) Calcium Level 8.4 mg/dL (8.5-10.1) 8.3 mg/dL (8.5-10.1) Magnesium Level 2.1 mg/dL (1.8-2.4) 2.1 mg/dL (1.8-2.4) Total Bilirubin 1.6 mg/dL (0.2-1.0) Direct Bilirubin 1.5 mg/dL (0.0-0.2) Aspartate Amino Transf (AST/SGOT) 58 U/L (15-37) Alanine Aminotransferase (ALT/SGPT) 40 U/L (14-59) Alkaline Phosphatase 934 U/L (46-116) Total Protein 6.1 g/dL (6.4-8.2) Albumin 2.1 g/dL (3.4-5.0) Laboratory Tests Test 04/16/20 04:15 White Blood Count 3.9 x10^3/uL (4.0-11.0) Red Blood Count 2.81 x10^6/uL (3.50-5.40) Hemoglobin 8.5 g/dL (12.0-15.5) Hematocrit 25.2 % (36.0-47.0) Mean Corpuscular Volume 90 fL (79-100) Mean Corpuscular Hemoglobin 30 pg (25-35) Mean Corpuscular Hemoglobin Concent 34 g/dL (31-37) Red Cell Distribution Width 19.3 % (11.5-14.5) Platelet Count 281 x10^3/uL (140-400) Neutrophils (%) (Auto) 67 % (31-73) Lymphocytes (%) (Auto) 21 % (24-48) Monocytes (%) (Auto) 9 % (0-9) Eosinophils (%) (Auto) 4 % (0-3) Basophils (%) (Auto) 1 % (0-3) Neutrophils # (Auto) 2.6 x10^3/uL (1.8-7.7) Lymphocytes # (Auto) 0.8 x10^3/uL (1.0-4.8) Monocytes # (Auto) 0.3 x10^3/uL (0.0-1.1) Eosinophils # (Auto) 0.1 x10^3/uL (0.0-0.7) Basophils # (Auto) 0.0 x10^3/uL (0.0-0.2) Sodium Level 140 mmol/L (136-145) Potassium Level 3.5 mmol/L (3.5-5.1) Chloride Level 107 mmol/L (98-107) Carbon Dioxide Level 22 mmol/L (21-32) Anion Gap 11 (6-14) Blood Urea Nitrogen 10 mg/dL (7-20) Creatinine 0.8 mg/dL (0.6-1.0) Estimated GFR (Cockcroft-Gault) 68.7 Glucose Level 84 mg/dL (70-99) Calcium Level 8.3 mg/dL (8.5-10.1) Magnesium Level 2.1 mg/dL (1.8-2.4) Total Bilirubin 1.6 mg/dL (0.2-1.0) Direct Bilirubin 1.5 mg/dL (0.0-0.2) Aspartate Amino Transf (AST/SGOT) 58 U/L (15-37) Alanine Aminotransferase (ALT/SGPT) 40 U/L (14-59) Alkaline Phosphatase 934 U/L (46-116) Total Protein 6.1 g/dL (6.4-8.2) Albumin 2.1 g/dL (3.4-5.0) Microbiology 04/14/20 Fecal Leukocyte Stain - Final, Complete 04/13/20 Urine Culture - Final, Complete 04/13/20 Antimicrobic Susceptibility - Final, Complete Medications Current Medications Ceftriaxone Sodium (Rocephin) 1 gm 1X ONCE IVP Last administered on 04/14/20at 00:05; Start 04/14/20 at 00:00; Stop 04/14/20 at 00:01; Status DC Ondansetron HCl (Zofran) 4 mg PRN Q8HRS PRN IV NAUSEA/VOMITING 1ST CHOICE; Start 04/14/20 at 00:15; Stop 04/15/20 at 00:14; Status DC Sodium Chloride 1,000 ml @ 100 mls/hr 1X ONCE IV Last administered on 04/14/20at 00:10; Start 04/14/20 at 00:30; Stop 04/14/20 at 10:29; Status DC Amitriptyline HCl (Elavil) 10 mg QHS PO Last administered on 04/14/20at 00:18; Start 04/14/20 at 01:00; Stop 04/14/20 at 10:20; Status DC Tramadol HCl (Ultram) 50 mg PRN Q6HRS PRN PO MODERATE PAIN 4-6 Last administered on 04/14/20at 01:19; Start 04/14/20 at 00:45; Stop 04/14/20 at 10:20; Status DC Amitriptyline HCl (Elavil) 50 mg QHS PO Last administered on 04/14/20at 22:38; Start 04/14/20 at 21:00; Stop 04/15/20 at 08:53; Status DC Tramadol HCl (Ultram) 50 mg TID PO Last administered on 04/16/20at 12:56; Start 04/14/20 at 14:00 Ceftriaxone Sodium (Rocephin) 1 gm Q24H IVP Last administered on 04/16/20at 11 :00; Start 04/14/20 at 11:00; Stop 04/16/20 at 13:53; Status DC Cholestyramine Resin (Questran Light) 4 gm BID@1000,2200 PO Last administered on 04/14/20at 11:02; Start 04/14/20 at 10:30; Stop 04/16/20 at 13:53; Status DC Sertraline HCl (Zoloft) 50 mg DAILY PO Last administered on 04/16/20at 08:51; Start 04/14/20 at 11:00 Hydroxyzine HCl (Atarax) 10 mg PRN TID PRN PO ITCHING Last administered on 04/16/20at 04:36; Start 04/14/20 at 10:15 Acetaminophen (Tylenol) 650 mg PRN Q6HRS PRN PO MILD PAIN / TEMP > 100.3'F; Start 04/14/20 at 10:15 Sodium Chloride 1,000 ml @ 40 mls/hr Q24H IV Last administered on 04/16/20at 09:50; Start 04/14/20 at 10:15; Stop 04/16/20 at 13:53; Status DC Ondansetron HCl (Zofran Odt) 4 mg PRN Q6HRS PRN PO NAUSEA/VOMITING; Start 03/25 11/13 at 10:30; Stop 04/16/20 at 13:53; Status DC Amitriptyline HCl (Elavil) 50 mg QHS PO Last administered on 04/15/20at 20:37; Start 04/15/20 at 21:00 Potassium Chloride (Klor-Con) 40 meq 1X ONCE PO Last administered on 04/15/20at 11:48; Start 04/15/20 at 11:15; Stop 04/15/20 at 11:16; Status DC Vancomycin HCl (Vancomycin Oral Solution) 125 mg [id number] PO Last administered on 04/16/20at 12:55; Start 04/15/20 at 17:00; Stop 04/16/20 at 13:53; Status DC Metronidazole (Flagyl) 500 mg Q8HRS PO ; Start 04/16/20 at 14:00; Status UNV Cephalexin HCl (Keflex) 500 mg TID PO ; Start 04/16/20 at 14:00; Status UNV Active Scripts Active Zoloft (Sertraline Hcl) 50 Mg Tablet 50 Mg PO DAILY Reported Amitriptyline Hcl 50 Mg Tablet 50 Mg PO QHS Klor-Con 10 (Potassium Chloride) 10 Meq Tablet.er 10 Meq PO DAILY Tramadol Hcl 50 Mg Tablet 100 Mg PO PRN TID PRN Furosemide 20 Mg Tablet 20 Mg PO DAILY Gabapentin 300 Mg Capsule 300 Mg PO TID Proctocream-Hc (Hydrocortisone) 30 Gm Cream..g. 1 Sim TP BID Hydroxyzine Hcl 10 Mg Tablet 10 Mg PO PRN TID PRN Vitals/I & O Vital Sign - Last 24 Hours 04/15/20 04/15/20 04/15/20 04/15/20 15:00 19:40 20:00 20:38 Temp 97.9 98.2 97.9 98.2 Pulse 67 68 Resp 16 16 18 B/P (MAP) 124/70 (88) 118/67 (84) Pulse Ox 96 97 O2 Delivery Room Air Room Air Room Air Room Air 04/15/20 04/15/20 04/16/20 04/16/20 21:38 22:52 03:55 07:00 Temp 98.5 97.8 98.1 98.5 97.8 98.1 Pulse 70 71 65 Resp 18 16 16 16 B/P (MAP) 115/69 (84) 110/68 (82) 122/70 (87) Pulse Ox 95 95 93 97 O2 Delivery Room Air Room Air Room Air Room Air 04/16/20 04/16/20 04/16/20 04/16/20 08:30 08:52 09:55 11:02 Temp 98.1 98.1 Pulse 68 Resp 16 16 18 B/P (MAP) 124/61 (82) Pulse Ox 98 99 O2 Delivery Room Air Room Air Room Air Room Air 04/16/20 12:56 Resp 16 Pulse Ox 99 O2 Delivery Room Air Intake and Output 0 04/15/20 04/15/20 04/16/20 15:00 23:00 07:00 Intake Total 100 ml 200 ml Output Total 350 ml 100 ml Balance -350 ml 100 ml 100 ml Justicifation of Admission Dx: Justifications for Admission: Justification of Admission Dx: Yes SRINIVASA ABDULLAHI MD Apr 16, 2020 13:57
[2020-04-16] MEDS ORDERED: CEPHALEXIN 250 MG CAPSULE. PO SCH (14:00)
[2020-04-16] MEDS ORDERED: metroNIDAZOLE 500 MG TABLET PO SCH (14:00)
[2020-04-16] MEDS ORDERED: CEPH250C PO (14:01)
[2020-04-16] MEDS ORDERED: METR500T PO (14:01)
[2020-04-16] MEDS ORDERED: TRAM50TA PO (14:01)
--- NOTE | 2020-04-16 14:01 | DISCH ---
DISCHARGE INSTRUCTIONS Condition on Discharge Condition on Discharge: Stable Activity After Discharge Activity Instructions for Disc: Activity as tolerated Lifting Instructions after Dis: No heavy lifting Driving Instructions after Dis: Do not drive today Weight Bearing Status after Di: As tolerated Diet after Discharge Diet after Discharge: GI Soft Wound Incision Care Wound/Incision Care: Keep wound/cast CDI Contacting the DRNancie after DC Call your doctor for: If your condition worsens Follow-Up Follow up with: dr. ashley next week Treatment/Equipment after DC Adaptive Equipment Issued: SRINIVASA Sifuentes MD Apr 16, 2020 14:01
--- NOTE | 2020-04-16 14:08 | PDOC ---
Provider Note Provider Note discharge summary dictated # [id number] Justicifation of Admission Dx: Justifications for Admission: Justification of Admission Dx: Yes SRINIVASA ABDULLAHI MD Apr 16, 2020 14:07
--- NOTE | 2020-04-16 15:14 | DS ---
DATE OF DISCHARGE: 04/16/2020 CONSULTANTS: Include Dr. Chris Taylor, Dr. Branch, Dr. Bingham, Dr. Alicea, and Dr aMlone FINAL DIAGNOSES: 1. Clostridium difficile colitis. 2. Klebsiella urinary tract infection. 3. Fever, which resolved. 4. Cholangiocarcinoma. 5. Anemia of chronic disease. 6. Severe protein-calorie malnutrition. 7. Fibromyalgia. 8. Fatigue. 9. Status post Whipple's procedure. 10. Ascites. HOSPITAL COURSE: The patient is an 84-year-old white female who underwent a Whipple's procedure in 04/2019 for cholangiocarcinoma. She apparently woke up on the floor next to her bed and had no recollection how she landed there. helped her up. She felt weak that lasted few weeks. She was admitted to the hospital on 04/18/2020 at [facility]. She was seen by Cardiology who felt she did not have a syncopal episode. Urine culture was positive for Klebsiella, received IV Rocephin. She did have a temperature of 100.4, which eventually resolved and she also had Clostridium difficile colitis and her stool was positive for C. diff, started on oral vancomycin. Yesterday, she had a formed stool and today she had no bowel movement at all and was started on cholestyramine since admission 4 grams b.i.d. Her tramadol was decreased from 100 mg t.i.d., to 50 mg t.i.d. Her furosemide and potassium chloride were discontinued. I discussed the case with Dr. Chris Taylor today and she felt that it is okay with the patient will be dismissed today on Flagyl 500 mg t.i.d. for 10 days and Keflex 500 mg t.i.d. for 5 days. We also decreased the tramadol to 50 mg t.i.d., sertraline is 50 mg every day and Elavil will be 50 mg every day. She will discontinue the Creon. She can take the hydroxyzine 10 mg t.i.d. p.r.n. for itching. Told to stop the lorazepam. She will make an appointment to see Dr. Perez in the office next week and follow up with her oncologist. SRINIVASA PEREZ MD DR: Gomez JOB#: [id number] / [id number]
--- NOTE | 2020-04-16 15:28 | NUR ---
Discharge Note: ANDREW LA Discharge instructions and discharge home medications reviewed with Patient and a copy given. All questions have been answered and understanding verbalized. The following instructions and handouts were given: FOLLOW UP INSTRUCTIONS. Discontinued lines and drains: Catheter tip intact. Patient tolerated well. Patient discharged to home with self care via personal vehicle.
== END 2020-04-16 15:30 | disposition home or self-care (01) | DRG 371 ==
LOC: ER 20:31 → OBSVTOIN 04-14 01:04 → 2 NORTH 04-14 01:04
PROVIDERS: ADMIT Internal Medicine; ATTEND Internal Medicine
DX: A04.72 Enterocolitis due to Clostridium difficile, not specified as recurrent (principal); E43 Unspecified severe protein-calorie malnutrition; N39.0 Urinary tract infection, site not specified; C24.0 Malignant neoplasm of extrahepatic bile duct; C25.9 Malignant neoplasm of pancreas, unspecified; R18.8 Other ascites; Z68.21 Body mass index [BMI] 21.0-21.9, adult; B96.1 Klebsiella pneumoniae [K. pneumoniae] as the cause of diseases classified elsewhere; D63.8 Anemia in other chronic diseases classified elsewhere; E78.00 Pure hypercholesterolemia, unspecified; E78.5 Hyperlipidemia, unspecified; E87.6 Hypokalemia; F41.9 Anxiety disorder, unspecified; I12.9 Hypertensive chronic kidney disease with stage 1 through stage 4 chronic kidney disease, or unspecified chronic kidney disease; M19.90 Unspecified osteoarthritis, unspecified site; M79.7 Fibromyalgia; N18.9 Chronic kidney disease, unspecified; F32.9 Major depressive disorder, single episode, unspecified; W18.39XA Other fall on same level, initial encounter; Y93.89 Activity, other specified; Y92.89 Other specified places as the place of occurrence of the external cause; Y99.8 Other external cause status; Z83.3 Family history of diabetes mellitus; Z87.01 Personal history of pneumonia (recurrent); Z90.411 Acquired partial absence of pancreas; Z90.49 Acquired absence of other specified parts of digestive tract; Z90.710 Acquired absence of both cervix and uterus; Z88.0 Allergy status to penicillin; Z88.2 Allergy status to sulfonamides; Z88.8 Allergy status to other drugs, medicaments and biological substances; Z98.42 Cataract extraction status, left eye; Z98.41 Cataract extraction status, right eye
CPT/HCPCS: 36415; 70450; 71045; 74176; 76705; 80048; 80053; 80076; 81001; 82150; 83690; 83735; 84484; 85025; 86304; 87077; 87086; 87186; 87205; 87493; 87505; 93005; 96361; 96374; 99285; J0696; J7030; 97110-GP; 97530-GP; G0378

== ENCOUNTER 2020-05-07 15:15 | Inpatient (IN) | payer MEDICARE ==
[~2020-05-07] VITALS: Ht 162.6 cm; Wt 60.5 kg
--- NOTE | 2020-05-07 15:45 | NUR ---
Arrived to unit as direct admit. Alert and oriented x's 4. Pt states admitted to hospital because doctor was concern about enlarged stomach. Oriented to room and controls. Side rails up x's 2 with call light in reach. Will call admitting doctor for orders.
[2020-05-07 16:00] VITALS: BP 99/53
[2020-05-07] MEDS ORDERED: hydrOXYzine 10 MG TABLET PO PRN (17:00)
--- NOTE | 2020-05-07 18:15 | NUR ---
Left messages for for orders.
[2020-05-07 19:00] VITALS: BP 106/57
[2020-05-07] MEDS ORDERED: ACETAMINOPHEN 325 MG TABLET. PO PRN (20:00)
[2020-05-07] MEDS: AMITRIPTYLINE HCL 25 MG TABLET. PO SCH (21:54)
--- NOTE | 2020-05-07 21:56 | PDOC ---
FOLLOW UP Brief Oncology Note: Noted consult order for obstructive jaundice. Patient was admitted directly to [facility] from my clinic today and Dr Perez who is her PCP is the admitting physician. She was seen earlier in clinic for a follow-up after a recent hospital stay. She was jaundiced, reported significant weight loss/fatigue, and was found to have a tense ascites on exam. Lab studies confirmed hyperbilirubinemia. Recommendations: -Agree with GI consult -CT abdomen pelvis with contrast to evaluate her symptoms/lab findings -Full consult to follow. Please call me with [phone] with any questions in the interim. Dell Miranda MD Medical Oncology-Hematology RIP MIRANDA MD May 07, 2020 21:56
[2020-05-07 22:18] LABS: HEMATOCRIT 26.7 % (36.0-47.0); HEMOGLOBIN 9.1 g/dL (12.0-15.5); MEAN CORPUSCULAR HEMOGLOBIN 30 pg (25-35); MEAN CORPUSCULAR HGB CONC 34 g/dL (31-37); MEAN CORPUSCULAR VOLUME 87 fL (79-100); PLATELET COUNT 427 x10^3/uL (140-400); RED BLOOD COUNT 3.06 x10^6/uL (3.50-5.40); RED CELL DISTRIBUTION WIDTH 18.5 % (11.5-14.5); WHITE BLOOD COUNT 9.7 x10^3/uL (4.0-11.0)
[2020-05-07 22:47] LABS: ALBUMIN 1.8 g/dL (3.4-5.0); ALBUMIN/GLOBULIN RATIO 0.3 (1.0-1.7); CALCIUM 8.2 mg/dL (8.5-10.1); CREATININE 0.8 mg/dL (0.6-1.0); GFR 68.7; MAGNESIUM 2.1 mg/dL (1.8-2.4); POTASSIUM 3.2 mmol/L (3.5-5.1); TOTAL BILIRUBIN 9.9 mg/dL (0.2-1.0)
[2020-05-07 23:00] VITALS: BP 108/58
[2020-05-07 23:33] LABS: % EOS 1 % (0-5); % LYMPHS 12 % (24-48); % MONOS 4 % (0-10); % SEGS 83 % (35-66)
[2020-05-07 23:34] LABS: ANISOCYTOSIS SLIGHT; PLT ESTIMATE INCREASED (ADEQUATE); TARGET CELLS PRESENT
[2020-05-08 03:00] VITALS: BP 94/49
[2020-05-08 07:45] LABS: ALBUMIN 1.6 g/dL (3.4-5.0); DIRECT BILIRUBIN 7.9 mg/dL (0.0-0.2); TOTAL BILIRUBIN 8.8 mg/dL (0.2-1.0); TOTAL PROTEIN 6.3 g/dL (6.4-8.2)
[2020-05-08 08:04] VITALS: BP 87/40
[2020-05-08] MEDS: SERTRALINE 50 MG TABLET. PO SCH (09:00)
[2020-05-08] MEDS ORDERED: CONTRAST GIVEN. MC PRN (11:45)
[2020-05-08] MEDS ORDERED: IOHEXOL 300 MG/ML 100ML VIAL. IV ONE (11:45)
[2020-05-08 11:59] VITALS: BP 101/60
[2020-05-08] MEDS ORDERED: POTASSIUM CHLORIDE 20 MEQ TABLET.ER. PO ONE (12:15)
--- NOTE | 2020-05-08 12:24 | PDOC ---
Provider Note Provider Note history and physical dictated # [id number] Justicifation of Admission Dx: Justifications for Admission: Justification of Admission Dx: Yes SRINIVASA ABDULLAHI MD May 08, 2020 12:24
--- NOTE | 2020-05-08 12:29 | NUR ---
Pharmacy does not carry Viokase, approved substitution was made for this medication.
--- NOTE | 2020-05-08 12:57 | RAD ---
Examination: CHEST AP ONLY History: Reason: cholangiocardinoma,jaundice / Spl. Instructions: / History: Comparison: 04/13/2020 portable chest x-ray exam. Findings: AP portable upright frontal view of the chest was obtained. The cardiomediastinal silhouette is normal. Lungs are clear. There is no pneumothorax. No pleural effusion is appreciated. No acute bone abnormality. Right upper quadrant surgical clips noted. Tortuosity of thoracic aorta noted. Right upper quadrant surgical clips noted. IMPRESSION: No acute cardiopulmonary process. Electronically signed by: Amos Matias MD (05/08/2020 12:54 PM) [id number]
--- NOTE | 2020-05-08 13:41 | HP ---
ADMIT DATE: 05/07/2020 LOCATION: Room #400. HISTORY OF PRESENT ILLNESS: The patient is an 84-year-old white female with history of cholangiocarcinoma, who had a Whipple procedure in 04/2019. She also has been feeling quite weak and noted to be more jaundiced. She also has more abdominal distention. She did have a CAT scan of her abdomen and pelvis and ultrasound of the abdomen on 04/14/2020, which showed pneumobilia. She had some ascites at that time. She got more jaundiced. She denies any abdominal pain or any fever, but she saw her oncologist yesterday who noted that she was more jaundiced and wanted to admit her to the hospital for further evaluation of obstructive jaundice. ALLERGIES AND INTOLERANCES: INCLUDE PENICILLIN, SULFA, AND LISINOPRIL. MEDICATIONS: Prior to admission include Elavil 50 mg at bedtime, sertraline 50 mg p.o. daily, tramadol 50 mg t.i.d., Creon 1 tablet t.i.d. with meals, which she has not been taking lately, and hydroxyzine 10 mg t.i.d. p.r.n. for pruritus. PAST MEDICAL/SURGICAL HISTORY: Significant for the cholangiocarcinoma diagnosed in 04/2019 and underwent a Whipple procedure at that time. She had a cholecystectomy a few years before that. She has a history of fibromyalgia, hypertension, hyperlipidemia, and depression. She had pneumonia in 2016. SOCIAL HISTORY: She does not drink alcohol, nor does she smoke cigarettes. She is and retired. Her son is a physician. FAMILY HISTORY: Noncontributory. REVIEW OF SYSTEMS: GENERAL: There has been no fever, chills, or sweats in the last 3 days. CARDIOVASCULAR: No chest pain. PULMONARY: No cough or shortness of breath. GASTROINTESTINAL: She has some loose stools. ENDOCRINE: No diabetes mellitus. SKIN: She is jaundiced. The rest of the systems reviewed are negative except as stated in the history of present illness. PHYSICAL EXAMINATION: VITAL SIGNS: Temperature is 97.9 degrees, apical pulse 69, respiratory rate 18, blood pressure 87/40, previously was 94/49, and oxygen saturation 96% on room air. HEENT: Eyes: Gaze is conjugate Sclerae are icteric. Mouth: Symmetrical. NECK: No cervical lymphadenopathy or thyroid enlargement. HEART: Reveals an S1, S2. There is no S3 or murmur. LUNGS: Clear. ABDOMEN: Soft but distended with ascites. It is nontender. EXTREMITIES: Lower extremities without edema. SKIN: No rashes, but she is jaundiced. NEUROLOGIC: There is no focal weakness. LABORATORY DATA: On review of her labs, white count 9.7, hemoglobin 9.1, and platelet count 427,000 with 83 polys and 12 lymphocytes; sodium 134, potassium 3.2, chloride 99, total CO2 of 26, BUN 15, creatinine 0.8; the blood sugar is 139; total bilirubin was 8.8, direct bilirubin 7.9; alkaline phosphatase ____, albumin 1.6, total protein of 6.3. DIAGNOSTIC STUDIES/IMAGING: I do not see an EKG or chest x-ray either. ASSESSMENT: 1. Cholangiocarcinoma. 2. Suspected obstructive jaundice. 3. 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 4. Anemia. 5. Hypokalemia. 6. Severe protein-calorie malnutrition. 7. Fibromyalgia. 8. Hypotension. PLAN: To start on intravenous normal saline. She will have a CAT scan of abdomen and pelvis done without intravenous contrast today. We will consult Dr. Bingham for Gastroenterology and we will consult Dr. Miranda for Oncology. Repeat a CBC and BMP tomorrow and get a magnesium level also tomorrow. For her hypokalemia, we will give her some potassium chloride 40 mEq orally x1. SRINIVASA ABDULLAHI MD DR: ISAK/valorie JOB#: [id number] / [id number]
[2020-05-08] MEDS: IV NORMAL SALINE 1000ML BAG 1,000 ML IV SCH (14:10)
[2020-05-08] MEDS: traMADol 50 MG TABLET PO SCH ×2 (14:11→23:21)
[2020-05-08 15:12] VITALS: BP 104/61
--- NOTE | 2020-05-08 15:15 | EKG ---
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
--- NOTE | 2020-05-08 15:48 | RAD ---
CT scan of the abdomen and pelvis with contrast 05/08/2020 CLINICAL HISTORY: History of cholangiocarcinoma post Whipple procedure. TECHNIQUE: After the intravenous administration of 75 cc of Omnipaque 350 only, contiguous, 5 mm axial sections were obtained through the abdomen and pelvis. One or more of the following individualized dose reduction techniques were utilized for this study: 1. Automated exposure control. 2. Adjustment of the mA and/or kV according to patient size. 3. Use of iterative reconstruction technique. FINDINGS: Comparison study is dated 10/15/2019. Images through the lung bases demonstrate mild cardiomegaly. Dependent subsegmental atelectasis is seen bilaterally. The spleen is mildly enlarged measuring 14.6 cm in length. Air is seen throughout the intrahepatic bile ducts. No acute focal abnormality of liver is seen. The adrenal glands and kidneys are within normal limits. Surgical changes are seen consistent with patient's history of a Whipple procedure. The remaining body/tail of pancreas has a dilated main pancreatic duct. No focal abnormality of the remaining pancreas is seen. Atherosclerotic calcification of the abdominal aorta and its branches is noted. The bowel is difficult to evaluate without oral contrast material. A moderate to large amount of stool is seen throughout the colon. There is no definite evidence of bowel obstruction. A moderate to large amount of ascites is seen throughout the abdomen which has increased since the previous study. No free air is noted. Images through the pelvis demonstrate the urinary bladder distended with urine. A moderate amount of ascites is seen throughout the pelvis. This is increased since the previous study. Calcified phleboliths are seen within the pelvis. The osseous structures are unchanged. IMPRESSION: Moderate to large amount of ascites is seen which has increased since the previous study. Electronically signed by: Joby Small MD (05/08/2020 3:45 PM) [id number]
--- NOTE | 2020-05-08 16:34 | PDOC2 ---
CONSULT Date of Consult Date of Consult DATE: 05/08/20 TIME: 16:31 Reason for Consult Reason for Consult: Elevated bilirubin, abdominal distention History of Present Illness Reason for Visit: This is an 84-year-old female who I recall seeing last year at this time with th e onset of obstructive jaundice. 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 She had recovery and felt well for many months. However she has had some recent diarrhea and decreased appetite. She is noticed some increased abdominal distention and some jaundice. She was admitted due to significant increase in her bilirubin level in the outpatient labs. She denies any bleeding and says her diarrhea comes and goes and she was prescribed Creon but had lost the bottle and has not been taking it until the last few days. However at that point she felt like it was improving her diarrhea. Reviewing imaging from this year includes a CT scan and ultrasound from the last few months. They reveal enlarged intrahepatic biliary system with pneumobilia but no obvious lesions or ascites. CT scan today on admission reveals moderate amount of ascites, some dilation of the pancreatic duct without new mass, and no significant changes in the size of her intrahepatic ductal system. Past Medical History Cardiovascular: HTN, Hyperlipidemia Pulmonary: Pneumonia CENTRAL NERVOUS SYSTEM: Other GI: Constipation Heme/Onc: Cancer Hepatobiliary: No pertinent hx Psych: Anxiety Musculoskeletal: Osteoarthritis Rheumatologic: Fibromyalgia Infectious disease: No pertinent hx Renal/: Chronic renal insuff, Urinary Incontinence Endocrine: No pertinent hx Past Surgical History Past Surgical History: Cholecystectomy, Cataract Removal, Hysterectomy, Other Family History Family History: Diabetes Social History ALCOHOL: none Drugs: None Lives: with Family Domestic Violence: Neg Current Medications Current Medications Current Medications Hydroxyzine HCl (Atarax) 10 mg PRN TID PRN PO ITCHING; Start 05/07/20 at 17:00 Sertraline HCl (Zoloft) 50 mg DAILY PO ; Start 05/08/20 at 09:00 Amitriptyline HCl (Elavil) 50 mg QHS PO Last administered on 05/07/20at 21:54; Start 05/07/20 at 21:00 Acetaminophen (Tylenol) 325 mg PRN Q6HRS PRN PO MILD PAIN / TEMP > 100.3'F; Start 05/07/20 at 20:00 Iohexol (Omnipaque 300 Mg/ml) 75 ml 1X ONCE IV Last administered on 05/08/20at 13:30; Start 05/08/20 at 11:45; Stop 05/08/20 at 11:46; Status DC Info (CONTRAST GIVEN -- Rx MONITORING) 1 each PRN DAILY PRN MC SEE COMMENTS; Start 05/08/20 at 11:45; Stop 05/10/20 at 11:44 Tramadol HCl (Ultram) 50 mg TID PO Last administered on 05/08/20at 14:11; Start 05/08/20 at 14:00 Potassium Chloride (Klor-Con) 40 meq 1X ONCE PO Last administered on 05/08/20at 14:10; Start 05/08/20 at 12:15; Stop 05/08/20 at 12:16; Status DC Sodium Chloride 1,000 ml @ 60 mls/hr [id number] IV Last administered on 05/08/20at 14:10; Start 05/08/20 at 12:30 Amylase/Lipase/ Protease (Zenpep 5,000) 2 cap TIDWMEALS PO Last administered on 05/08/20at 14:10; Start 05/08/20 at 13:00 Active Scripts Active Tramadol Hcl 50 Mg Tablet 50 Mg PO TID Flagyl (Metronidazole) 500 Mg Tablet 500 Mg PO Q8HRS Cephalexin 250 Mg Capsule 500 Mg PO TID Zoloft (Sertraline Hcl) 50 Mg Tablet 50 Mg PO DAILY Reported Amitriptyline Hcl 50 Mg Tablet 50 Mg PO QHS Hydroxyzine Hcl 10 Mg Tablet 10 Mg PO PRN TID PRN Allergies Allergies: Coded Allergies: Penicillins (Verified Allergy, Intermediate, 05/08/19) rash Sulfa (Sulfonamide Antibiotics) (Verified Allergy, Intermediate, Hives., 05/08/19) lisinopril (Verified Allergy, Intermediate, 05/08/19) Physical Exam General: Alert, Oriented X3, Other (Evidence of muscular wasting) HEENT: Atraumatic, Other (Jaundice) Heart: Regular rate, Normal S1, Normal S2 Abdomen: Normal bowel sounds, No tenderness, Other (Some distention with fluid. No obvious mass) Extremities: No clubbing Skin: No rashes, No breakdown Neuro: Normal speech Psych/Mental Status: Mental status NL Vitals VITALS Vital Signs Date Time Temp Pulse Resp B/P (MAP) Pulse Ox O2 Delivery O2 Flow Rate FiO2 05/08/20 15:12 98.4 75 18 104/61 (75) 96 Room Air 98.4 Labs Labs Laboratory Tests Test 05/07/20 22:00 05/08/20 07:05 White Blood Count 9.7 x10^3/uL (4.0-11.0) Red Blood Count 3.06 x10^6/uL (3.50-5.40) Hemoglobin 9.1 g/dL (12.0-15.5) Hematocrit 26.7 % (36.0-47.0) Mean Corpuscular Volume 87 fL (79-100) Mean Corpuscular Hemoglobin 30 pg (25-35) Mean Corpuscular Hemoglobin Concent 34 g/dL (31-37) Red Cell Distribution Width 18.5 % (11.5-14.5) Platelet Count 427 x10^3/uL (140-400) Neutrophils (%) (Auto) % (31-73) Lymphocytes (%) (Auto) % (24-48) Monocytes (%) (Auto) % (0-9) Eosinophils (%) (Auto) % (0-3) Basophils (%) (Auto) % (0-3) Neutrophils # (Auto) x10^3/uL (1.8-7.7) Lymphocytes # (Auto) x10^3/uL (1.0-4.8) Monocytes # (Auto) x10^3/uL (0.0-1.1) Eosinophils # (Auto) x10^3/uL (0.0-0.7) Basophils # (Auto) x10^3/uL (0.0-0.2) Segmented Neutrophils % 83 % (35-66) Lymphocytes % 12 % (24-48) Monocytes % 4 % (0-10) Eosinophils % 1 % (0-5) Platelet Estimate Increased (ADEQUATE) Anisocytosis Slight Target Cells Present Sodium Level 134 mmol/L (136-145) Potassium Level 3.2 mmol/L (3.5-5.1) Chloride Level 99 mmol/L (98-107) Carbon Dioxide Level 26 mmol/L (21-32) Anion Gap 9 (6-14) Blood Urea Nitrogen 15 mg/dL (7-20) Creatinine 0.8 mg/dL (0.6-1.0) Estimated GFR (Cockcroft-Gault) 68.7 BUN/Creatinine Ratio 19 (6-20) Glucose Level 139 mg/dL (70-99) Calcium Level 8.2 mg/dL (8.5-10.1) Magnesium Level 2.1 mg/dL (1.8-2.4) Total Bilirubin 9.9 mg/dL (0.2-1.0) 8.8 mg/dL (0.2-1.0) Aspartate Amino Transf (AST/SGOT) 107 U/L (15-37) 86 U/L (15-37) Alanine Aminotransferase (ALT/SGPT) 48 U/L (14-59) 47 U/L (14-59) Alkaline Phosphatase 997 U/L (46-116) 874 U/L (46-116) Total Protein 7.0 g/dL (6.4-8.2) 6.3 g/dL (6.4-8.2) Albumin 1.8 g/dL (3.4-5.0) 1.6 g/dL (3.4-5.0) Albumin/Globulin Ratio 0.3 (1.0-1.7) Direct Bilirubin 7.9 mg/dL (0.0-0.2) Laboratory Tests Test 05/07/20 22:00 05/08/20 07:05 White Blood Count 9.7 x10^3/uL (4.0-11.0) Red Blood Count 3.06 x10^6/uL (3.50-5.40) Hemoglobin 9.1 g/dL (12.0-15.5) Hematocrit 26.7 % (36.0-47.0) Mean Corpuscular Volume 87 fL (79-100) Mean Corpuscular Hemoglobin 30 pg (25-35) Mean Corpuscular Hemoglobin Concent 34 g/dL (31-37) Red Cell Distribution Width 18.5 % (11.5-14.5) Platelet Count 427 x10^3/uL (140-400) Neutrophils (%) (Auto) % (31-73) Lymphocytes (%) (Auto) % (24-48) Monocytes (%) (Auto) % (0-9) Eosinophils (%) (Auto) % (0-3) Basophils (%) (Auto) % (0-3) Neutrophils # (Auto) x10^3/uL (1.8-7.7) Lymphocytes # (Auto) x10^3/uL (1.0-4.8) Monocytes # (Auto) x10^3/uL (0.0-1.1) Eosinophils # (Auto) x10^3/uL (0.0-0.7) Basophils # (Auto) x10^3/uL (0.0-0.2) Segmented Neutrophils % 83 % (35-66) Lymphocytes % 12 % (24-48) Monocytes % 4 % (0-10) Eosinophils % 1 % (0-5) Platelet Estimate Increased (ADEQUATE) Anisocytosis Slight Target Cells Present Sodium Level 134 mmol/L (136-145) Potassium Level 3.2 mmol/L (3.5-5.1) Chloride Level 99 mmol/L (98-107) Carbon Dioxide Level 26 mmol/L (21-32) Anion Gap 9 (6-14) Blood Urea Nitrogen 15 mg/dL (7-20) Creatinine 0.8 mg/dL (0.6-1.0) Estimated GFR (Cockcroft-Gault) 68.7 BUN/Creatinine Ratio 19 (6-20) Glucose Level 139 mg/dL (70-99) Calcium Level 8.2 mg/dL (8.5-10.1) Magnesium Level 2.1 mg/dL (1.8-2.4) Total Bilirubin 9.9 mg/dL (0.2-1.0) 8.8 mg/dL (0.2-1.0) Aspartate Amino Transf (AST/SGOT) 107 U/L (15-37) 86 U/L (15-37) Alanine Aminotransferase (ALT/SGPT) 48 U/L (14-59) 47 U/L (14-59) Alkaline Phosphatase 997 U/L (46-116) 874 U/L (46-116) Total Protein 7.0 g/dL (6.4-8.2) 6.3 g/dL (6.4-8.2) Albumin 1.8 g/dL (3.4-5.0) 1.6 g/dL (3.4-5.0) Albumin/Globulin Ratio 0.3 (1.0-1.7) Direct Bilirubin 7.9 mg/dL (0.0-0.2) Images Images CT scan reveals moderate amount of ascites. The other changes in the pancreas, surgery and liver seems similar to what was seen in the past. Assessment/Plan Assessment/Plan Elevated bilirubin. Most likely this is some sort of obstructive jaundice from recurrence of her tumor but the x-rays did not confirm a dramatic change in the intrahepatic ductal system. Ascites. This is concerning and most likely represents malignancy. Certainly drainage for relief of distention but also for cytology and cell count would make sense. History of pancreatic cancer with pyloric sparing Whipple procedure. Plan: We will consider paracentesis and continue to monitor labs Once the fluid is drained we will discuss with interventional radiology whether access of the intrahepatic biliary system is feasible and and therapeutically helpful in establishing any obstructive disease since more standard ERCP is unlikely to be successful with the Whipple procedure RADHA ROWLEY MD May 08, 2020 16:34
[2020-05-08 19:07] VITALS: BP 103/61
[2020-05-08 23:00] VITALS: BP 128/58
[2020-05-08] MEDS: AMITRIPTYLINE HCL 25 MG TABLET. PO SCH (23:20)
[2020-05-09] VITALS (12 sets, daily range): BP systolic 87–126; BP diastolic 44–70
[2020-05-09] MEDS: traMADol 50 MG TABLET PO SCH (07:35)
[2020-05-09] MEDS: IV NORMAL SALINE 1000ML BAG 1,000 ML IV SCH (07:36)
[2020-05-09] MEDS: SERTRALINE 50 MG TABLET. PO SCH (08:44)
[2020-05-09 08:56] LABS: CALCIUM 8.2 mg/dL (8.5-10.1); CREATININE 0.8 mg/dL (0.6-1.0); GFR 68.7; POTASSIUM 3.5 mmol/L (3.5-5.1)
[2020-05-09 08:59] LABS: PROTHROMBIN TIME PATIENT 20.6 SEC (11.7-14.0)
--- NOTE | 2020-05-09 10:50 | PDOC ---
GI PROGRESS NOTES Date of Service: Date/Time DATE: 05/09/20 TIME: 10:48 Subjective Subjective Not feeling well today. Appetite is poor. No significant abdominal pain but continues to be distended Objective Vitals Vital Signs Date Time Temp Pulse Resp B/P (MAP) Pulse Ox O2 Delivery O2 Flow Rate FiO2 05/09/20 09:32 99.9 97 18 126/70 (88) 92 Room Air 99.9 05/09/20 08:44 Room Air 05/09/20 07:35 Room Air 05/09/20 02:33 99.4 88 20 108/58 (75) 93 Room Air 99.4 05/09/20 00:30 18 Room Air 05/08/20 23:21 98 Room Air 05/08/20 23:00 99.0 92 18 128/58 (81) 98 Room Air 99.0 05/08/20 20:00 Room Air 05/08/20 19:07 98.5 81 20 103/61 (75) 94 Room Air 98.5 05/08/20 15:12 98.4 75 18 104/61 (75) 96 Room Air 98.4 05/08/20 15:11 Room Air 05/08/20 14:11 Room Air 05/08/20 11:59 98.6 77 18 101/60 (74) 94 Room Air 98.6 Labs Labs Laboratory Tests Test 05/09/20 07:30 Prothrombin Time 20.6 SEC (11.7-14.0) Prothromb Time International Ratio 1.8 (0.8-1.1) Sodium Level 135 mmol/L (136-145) Potassium Level 3.5 mmol/L (3.5-5.1) Chloride Level 100 mmol/L (98-107) Carbon Dioxide Level 22 mmol/L (21-32) Anion Gap 13 (6-14) Blood Urea Nitrogen 11 mg/dL (7-20) Creatinine 0.8 mg/dL (0.6-1.0) Estimated GFR (Cockcroft-Gault) 68.7 Glucose Level 120 mg/dL (70-99) Calcium Level 8.2 mg/dL (8.5-10.1) Magnesium Level 2.0 mg/dL (1.8-2.4) Physical Exam Physical Exam Awake and alert Jaundice Chest clear Heart regular rate and rhythm Abdomen soft but distended with fluid. No obvious mass. No tenderness. Normal bowel sounds. Extremities trace edema Assessment Assessment Increasing jaundice and ascites. In face of her history this is concerning for probable carcinomatosis based on her prior diagnosis. Also cannot rule out obstructive disease either related to her previous surgery or recurrent tumor involving the biliary system. However due to her previous surgery we have a limited repertoire of diagnostic tests and treatment for such a possibility. Plan Plan We will add some vitamin K today since her INR is slightly up and is probably from poor nutrition or some intrinsic liver disease Plan paracentesis both for therapeutic and diagnostic purposes and then after that consider other options. Justicifation of Admission Dx: Justifications for Admission: Justification of Admission Dx: Yes RADHA ROWLEY MD May 09, 2020 10:50
[2020-05-09 10:57] LABS: HEMATOCRIT 30.2 % (36.0-47.0); HEMOGLOBIN 10.3 g/dL (12.0-15.5); MEAN CORPUSCULAR HEMOGLOBIN 30 pg (25-35); MEAN CORPUSCULAR HGB CONC 34 g/dL (31-37); MEAN CORPUSCULAR VOLUME 88 fL (79-100); PLATELET COUNT 510 x10^3/uL (140-400); RED BLOOD COUNT 3.43 x10^6/uL (3.50-5.40); RED CELL DISTRIBUTION WIDTH 18.3 % (11.5-14.5); WHITE BLOOD COUNT 11.4 x10^3/uL (4.0-11.0)
[2020-05-09] MEDS ORDERED: PHYTONADIONE 10 MG/ML AMPUL. SQ ONE (11:00)
[2020-05-09 11:01] LABS: % BANDS 7 % (0-9); % EOS 1 % (0-5); % LYMPHS 7 % (24-48); % MONOS 3 % (0-10); % SEGS 82 % (35-66)
[2020-05-09 11:02] LABS: ANISOCYTOSIS PRESENT; HYPOCHROMIA PRESENT; PLT ESTIMATE INCREASED (ADEQUATE)
--- NOTE | 2020-05-09 11:30 | PDOC ---
PROGRESS NOTES Date of Service DATE: 05/09/20 TIME: 11:24 Subjective Subjective does not feel well. eating poorly and has more abdominal distention and some lower abdominal discomfort. has low grade fever, labs and ctscan results reviewed.. inr 1.8 Objective Objective Vital Signs Date Time Temp Pulse Resp B/P (MAP) Pulse Ox O2 Delivery O2 Flow Rate FiO2 05/09/20 09:32 99.9 97 18 126/70 (88) 92 Room Air 99.9 Intake and Output 05/09/20 07:00 Intake Total 588 ml Balance 588 ml Blood Product IV Normal Saline Flush 588 ml # Voids 2 Physical Exam Abdomen: Normal bowel sounds, Other (distended with ascites. bilateral lower abdominal tenderness without guarding, ) Heart: Regular rate, Normal S1, Normal S2 Extremities: No edema General: Alert HEENT: Atraumatic, Other (sclera icteric) Lungs: Clear to auscultation Neuro: Normal speech Psych/Mental Status: Mental status NL Skin: No rashes, Other (jaundiced) Assessment Assessment 1. 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 Suspected obstructive jaundice. 3. 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 Anemia. 5. Hypokalemia.resolved 6. Severe protein-calorie malnutrition. 7. Fibromyalgia. 8. Hypotension.resolved low grade fever abdominal pain mild coagulopathy Plan Plan of Care d/c iv fluids blood cultures now consult ID start iv zyvox and meropenem norco prn d/c tramadol and sertraline on zyvox consult IR for dx/Tx paracentesis and send for bacterial c and s and cytology discussed code status with her and she will discuss that with her family vitamin K and 2 units of FFP in preparation for paracentesis lab tomorrow SCD for DVT prophylaxis Comment Review of Relevant I have reviewed the following items betty (where applicable) has been applied. Labs Laboratory Tests Test 05/07/20 22:00 05/08/20 07:05 05/09/20 07:30 White Blood Count 9.7 x10^3/uL (4.0-11.0) 11.4 x10^3/uL (4.0-11.0) Red Blood Count 3.06 x10^6/uL (3.50-5.40) 3.43 x10^6/uL (3.50-5.40) Hemoglobin 9.1 g/dL (12.0-15.5) 10.3 g/dL (12.0-15.5) Hematocrit 26.7 % (36.0-47.0) 30.2 % (36.0-47.0) Mean Corpuscular Volume 87 fL (79-100) 88 fL (79-100) Mean Corpuscular Hemoglobin 30 pg (25-35) 30 pg (25-35) Mean Corpuscular Hemoglobin Concent 34 g/dL (31-37) 34 g/dL (31-37) Red Cell Distribution Width 18.5 % (11.5-14.5) 18.3 % (11.5-14.5) Platelet Count 427 x10^3/uL (140-400) 510 x10^3/uL (140-400) Neutrophils (%) (Auto) % (31-73) % (31-73) Lymphocytes (%) (Auto) % (24-48) % (24-48) Monocytes (%) (Auto) % (0-9) % (0-9) Eosinophils (%) (Auto) % (0-3) % (0-3) Basophils (%) (Auto) % (0-3) % (0-3) Neutrophils # (Auto) x10^3/uL (1.8-7.7) x10^3/uL (1.8-7.7) Lymphocytes # (Auto) x10^3/uL (1.0-4.8) x10^3/uL (1.0-4.8) Monocytes # (Auto) x10^3/uL (0.0-1.1) x10^3/uL (0.0-1.1) Eosinophils # (Auto) x10^3/uL (0.0-0.7) x10^3/uL (0.0-0.7) Basophils # (Auto) x10^3/uL (0.0-0.2) x10^3/uL (0.0-0.2) Segmented Neutrophils % 83 % (35-66) 82 % (35-66) Lymphocytes % 12 % (24-48) 7 % (24-48) Monocytes % 4 % (0-10) 3 % (0-10) Eosinophils % 1 % (0-5) 1 % (0-5) Platelet Estimate Increased (ADEQUATE) Increased (ADEQUATE) Anisocytosis Slight Present Target Cells Present Sodium Level 134 mmol/L (136-145) 135 mmol/L (136-145) Potassium Level 3.2 mmol/L (3.5-5.1) 3.5 mmol/L (3.5-5.1) Chloride Level 99 mmol/L (98-107) 100 mmol/L (98-107) Carbon Dioxide Level 26 mmol/L (21-32) 22 mmol/L (21-32) Anion Gap 9 (6-14) 13 (6-14) Blood Urea Nitrogen 15 mg/dL (7-20) 11 mg/dL (7-20) Creatinine 0.8 mg/dL (0.6-1.0) 0.8 mg/dL (0.6-1.0) Estimated GFR (Cockcroft-Gault) 68.7 68.7 BUN/Creatinine Ratio 19 (6-20) Glucose Level 139 mg/dL (70-99) 120 mg/dL (70-99) Calcium Level 8.2 mg/dL (8.5-10.1) 8.2 mg/dL (8.5-10.1) Magnesium Level 2.1 mg/dL (1.8-2.4) 2.0 mg/dL (1.8-2.4) Total Bilirubin 9.9 mg/dL (0.2-1.0) 8.8 mg/dL (0.2-1.0) Aspartate Amino Transf (AST/SGOT) 107 U/L (15-37) 86 U/L (15-37) Alanine Aminotransferase (ALT/SGPT) 48 U/L (14-59) 47 U/L (14-59) Alkaline Phosphatase 997 U/L (46-116) 874 U/L (46-116) Total Protein 7.0 g/dL (6.4-8.2) 6.3 g/dL (6.4-8.2) Albumin 1.8 g/dL (3.4-5.0) 1.6 g/dL (3.4-5.0) Albumin/Globulin Ratio 0.3 (1.0-1.7) Direct Bilirubin 7.9 mg/dL (0.0-0.2) Band Neutrophils % 7 % (0-9) Hypochromasia Present Prothrombin Time 20.6 SEC (11.7-14.0) Prothromb Time International Ratio 1.8 (0.8-1.1) Laboratory Tests Test 05/09/20 07:30 White Blood Count 11.4 x10^3/uL (4.0-11.0) Red Blood Count 3.43 x10^6/uL (3.50-5.40) Hemoglobin 10.3 g/dL (12.0-15.5) Hematocrit 30.2 % (36.0-47.0) Mean Corpuscular Volume 88 fL (79-100) Mean Corpuscular Hemoglobin 30 pg (25-35) Mean Corpuscular Hemoglobin Concent 34 g/dL (31-37) Red Cell Distribution Width 18.3 % (11.5-14.5) Platelet Count 510 x10^3/uL (140-400) Neutrophils (%) (Auto) % (31-73) Lymphocytes (%) (Auto) % (24-48) Monocytes (%) (Auto) % (0-9) Eosinophils (%) (Auto) % (0-3) Basophils (%) (Auto) % (0-3) Neutrophils # (Auto) x10^3/uL (1.8-7.7) Lymphocytes # (Auto) x10^3/uL (1.0-4.8) Monocytes # (Auto) x10^3/uL (0.0-1.1) Eosinophils # (Auto) x10^3/uL (0.0-0.7) Basophils # (Auto) x10^3/uL (0.0-0.2) Segmented Neutrophils % 82 % (35-66) Band Neutrophils % 7 % (0-9) Lymphocytes % 7 % (24-48) Monocytes % 3 % (0-10) Eosinophils % 1 % (0-5) Platelet Estimate Increased (ADEQUATE) Hypochromasia Present Anisocytosis Present Prothrombin Time 20.6 SEC (11.7-14.0) Prothromb Time International Ratio 1.8 (0.8-1.1) Sodium Level 135 mmol/L (136-145) Potassium Level 3.5 mmol/L (3.5-5.1) Chloride Level 100 mmol/L (98-107) Carbon Dioxide Level 22 mmol/L (21-32) Anion Gap 13 (6-14) Blood Urea Nitrogen 11 mg/dL (7-20) Creatinine 0.8 mg/dL (0.6-1.0) Estimated GFR (Cockcroft-Gault) 68.7 Glucose Level 120 mg/dL (70-99) Calcium Level 8.2 mg/dL (8.5-10.1) Magnesium Level 2.0 mg/dL (1.8-2.4) Medications Current Medications Hydroxyzine HCl (Atarax) 10 mg PRN TID PRN PO ITCHING; Start 05/07/20 at 17:00 Sertraline HCl (Zoloft) 50 mg DAILY PO Last administered on 05/09/20at 08:44; Start 05/08/20 at 09:00; Stop 05/09/20 at 11:19; Status DC Amitriptyline HCl (Elavil) 50 mg QHS PO Last administered on 05/08/20at 23:20; Start 05/07/20 at 21:00 Acetaminophen (Tylenol) 325 mg PRN Q6HRS PRN PO MILD PAIN / TEMP > 100.3'F; Start 05/07/20 at 20:00 Iohexol (Omnipaque 300 Mg/ml) 75 ml 1X ONCE IV Last administered on 05/08/20at 13:30; Start 05/08/20 at 11:45; Stop 05/08/20 at 11:46; Status DC Info (CONTRAST GIVEN -- Rx MONITORING) 1 each PRN DAILY PRN MC SEE COMMENTS; Start 05/08/20 at 11:45; Stop 05/10/20 at 11:44 Tramadol HCl (Ultram) 50 mg TID PO Last administered on 05/09/20at 07:35; Start 05/08/20 at 14:00; Stop 05/09/20 at 11:15; Status DC Potassium Chloride (Klor-Con) 40 meq 1X ONCE PO Last administered on 05/08/20at 14:10; Start 05/08/20 at 12:15; Stop 05/08/20 at 12:16; Status DC Sodium Chloride 1,000 ml @ 60 mls/hr [id number] IV Last administered on 05/09/20at 07:36; Start 05/08/20 at 12:30; Stop 05/09/20 at 11:15; Status DC Amylase/Lipase/ Protease (Zenpep 5,000) 2 cap TIDWMEALS PO Last administered on 05/09/20at 08:44; Start 05/08/20 at 13:00 Phytonadione (Vitamin K Ampule) 2 mg 1X ONCE SQ ; Start 05/09/20 at 11:00; Stop 05/09/20 at 11:01; Status DC Meropenem 1 gm/ Sodium Chloride 100 ml @ 200 mls/hr Q12HR IV ; Start 05/09/20 at 11:30 Linezolid/Dextrose 300 ml @ 300 mls/hr Q12HR IV ; Start 05/09/20 at 12:00 Acetaminophen/ Hydrocodone Bitart (Lortab 5/325) 1 tab PRN Q4HRS PRN PO MODERATE - SEVERE PAIN; Start 05/09/20 at 11:15 Active Scripts Active Tramadol Hcl 50 Mg Tablet 50 Mg PO TID Flagyl (Metronidazole) 500 Mg Tablet 500 Mg PO Q8HRS Cephalexin 250 Mg Capsule 500 Mg PO TID Zoloft (Sertraline Hcl) 50 Mg Tablet 50 Mg PO DAILY Reported Amitriptyline Hcl 50 Mg Tablet 50 Mg PO QHS Hydroxyzine Hcl 10 Mg Tablet 10 Mg PO PRN TID PRN Vitals/I & O Vital Sign - Last 24 Hours 05/08/20 05/08/20 05/08/20 05/08/20 11:59 14:11 15:11 15:12 Temp 98.6 98.4 98.6 98.4 Pulse 77 75 Resp 18 18 B/P (MAP) 101/60 (74) 104/61 (75) Pulse Ox 94 96 O2 Delivery Room Air Room Air Room Air Room Air 05/08/20 05/08/20 05/08/20 05/08/20 19:07 20:00 23:00 23:21 Temp 98.5 99.0 98.5 99.0 Pulse 81 92 Resp 20 18 B/P (MAP) 103/61 (75) 128/58 (81) Pulse Ox 94 98 98 O2 Delivery Room Air Room Air Room Air Room Air 8/16/20 8/16/20 8/16/20 8/16/20 00:30 02:33 07:35 08:44 Temp 99.4 99.4 Pulse 88 Resp 18 20 B/P (MAP) 108/58 (75) Pulse Ox 93 O2 Delivery Room Air Room Air Room Air Room Air 05/09/20 09:32 Temp 99.9 99.9 Pulse 97 Resp 18 B/P (MAP) 126/70 (88) Pulse Ox 92 O2 Delivery Room Air Intake and Output 05/08/20 05/08/20 05/09/20 15:00 23:00 07:00 Intake Total 588 ml Balance 588 ml Justicifation of Admission Dx: Justifications for Admission: Justification of Admission Dx: Yes SRINIVASA ABDULLAHI MD May 09, 2020 11:30
[2020-05-09] MEDS: MEROPENEM 1 GM in IV NORMAL SALINE 100ML 100 ML IV SCH ×2 (11:34→21:04)
[2020-05-09] MEDS: HYDROcodone/APAP 5/325MG 1 TAB TABLET PO PRN (11:41)
--- NOTE | 2020-05-09 13:50 | PDOC ---
Infectious Disease Note Vital Sign Vital Signs Vital Signs Date Time Temp Pulse Resp B/P (MAP) Pulse Ox O2 Delivery O2 Flow Rate FiO2 05/09/20 11:59 100.1 93 18 108/61 (77) 93 Room Air 100.1 Labs Lab Laboratory Tests Test 05/09/20 07:30 White Blood Count 11.4 x10^3/uL (4.0-11.0) Red Blood Count 3.43 x10^6/uL (3.50-5.40) Hemoglobin 10.3 g/dL (12.0-15.5) Hematocrit 30.2 % (36.0-47.0) Mean Corpuscular Volume 88 fL (79-100) Mean Corpuscular Hemoglobin 30 pg (25-35) Mean Corpuscular Hemoglobin Concent 34 g/dL (31-37) Red Cell Distribution Width 18.3 % (11.5-14.5) Platelet Count 510 x10^3/uL (140-400) Neutrophils (%) (Auto) % (31-73) Lymphocytes (%) (Auto) % (24-48) Monocytes (%) (Auto) % (0-9) Eosinophils (%) (Auto) % (0-3) Basophils (%) (Auto) % (0-3) Neutrophils # (Auto) x10^3/uL (1.8-7.7) Lymphocytes # (Auto) x10^3/uL (1.0-4.8) Monocytes # (Auto) x10^3/uL (0.0-1.1) Eosinophils # (Auto) x10^3/uL (0.0-0.7) Basophils # (Auto) x10^3/uL (0.0-0.2) Segmented Neutrophils % 82 % (35-66) Band Neutrophils % 7 % (0-9) Lymphocytes % 7 % (24-48) Monocytes % 3 % (0-10) Eosinophils % 1 % (0-5) Platelet Estimate Increased (ADEQUATE) Hypochromasia Present Anisocytosis Present Prothrombin Time 20.6 SEC (11.7-14.0) Prothromb Time International Ratio 1.8 (0.8-1.1) Sodium Level 135 mmol/L (136-145) Potassium Level 3.5 mmol/L (3.5-5.1) Chloride Level 100 mmol/L (98-107) Carbon Dioxide Level 22 mmol/L (21-32) Anion Gap 13 (6-14) Blood Urea Nitrogen 11 mg/dL (7-20) Creatinine 0.8 mg/dL (0.6-1.0) Estimated GFR (Cockcroft-Gault) 68.7 Glucose Level 120 mg/dL (70-99) Calcium Level 8.2 mg/dL (8.5-10.1) Magnesium Level 2.0 mg/dL (1.8-2.4) Objective Assessment Fever Leukocytosis Abdominal pain Ascites Diarrhea. Recent h/o C. difficile diarrhea 04/14. Hyperbilirubinemia Cholangiocarcinoma s/p Whipple Apr 2019. Did not tolerate chemo. Severe protein-calorie malnutrition. h/o Klebsiella UTI, treated Plan Plan of Care Patient was stated on Zyvox and meropenem per primary add po vancomycin with recent h/o C. difficile IR consulted for paracentesis with cell count and cultures. f/u blood cultures Monitor labs/temp Maintain aspiration precautions D/w nursing Full consult to follow Thank you Patient seen and examined. Labs, micro, and chart reviewed. I agree with the above [employer]. REID ANDERSON APRN May 09, 2020 13:49 JAKE CANDELARIA MD May 09, 2020 16:45
--- NOTE | 2020-05-09 14:34 | PDOC2 ---
CONSULT Date of Consult Date of Consult DATE: 05/09/20 TIME: 14:15 Reason for Consult Reason for Consult: Obstructive jaundice, Hx of cholangiocarcinoma Referring Physician Referring Physician: Dr Perez Identification/Chief Complaint Chief Complaint Abdominal distension Problems: (1) Cholangiocarcinoma (2) Jaundice Source Source: Caregiver, Chart review, Patient History of Present Illness Reason for Visit: Natalya Cook is an 84 year old female with history of extrahepatic cholangiocarcinoma s/p whipple surgery in 07/2019 who has been admitted for evaluation and management of obstructive jaundice and ascites. She is known to me from a recent hospitalization following a syncopal episode where she was found to have hyperbilirubinemia which improved spontaneously. US and CT abdomen then showed pneumobilia and mild ascites. She was seen in a follow-up visit in my office on 05/07/2020 where she reported significantly worsened fatigue, painful abdominal distension and worsened jaundice. Lab studies obtained during her clinic visit showed an elevated bili of ~11. I recommended hospitalization for further evaluation and management of these findings. She reports today that she has had dairrhea this morning and notes that abdominal pain has slightly worsened over the past 2 days. With regards to her prior oncologic history, she was diagnosed with a pancreatic mass last year after presenting with nausea and vomiting in April 2019. CT scan of the abdomen and pelvis on 04/26/2019 revealed no evidence of bowel obstruction, moderate intrahepatic and extrahepatic biliary ductal dilatation. She underwent ERCP on 04/28/2019 which revealed narrowing of the ve ry distal common bile duct with no focal filling defect. She was then evaluated by Dr. Jose Francisco Branch and the patient underwent Whipple procedure, specifically pyloric sparing pancreaticogastrostomy and G-tube placement on 05/08/2019. Pathology revealed invasive adenocarcinoma, biliary type, moderate to focally poorly differentiated, appearing to arise from the common bile duct with tumor invasion beyond the wall of the bile duct into adjacent soft tissues and focal minimal invasion of the attached pancreatic tissue. There was metastatic adenocarcinoma involving 1 out of 8 lymph nodes. Pathology from the duodenum and attached pancreas revealed focal invasive adenocarcinoma and 29 lymph nodes were negative. 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 She followed up with Dr Wilkerson outpatient and adjuvant chemotherapy was initiated but she did not tolerate it well and surveillance was therefore recommended. Past Medical History Cardiovascular: HTN, Hyperlipidemia Pulmonary: Pneumonia CENTRAL NERVOUS SYSTEM: Other GI: Constipation Heme/Onc: Cancer Hepatobiliary: No pertinent hx Psych: Anxiety Musculoskeletal: Osteoarthritis Rheumatologic: Fibromyalgia Infectious disease: No pertinent hx Renal/: Chronic renal insuff, Urinary Incontinence Endocrine: No pertinent hx Past Surgical History Past Surgical History: Cholecystectomy, Cataract Removal, Hysterectomy, Other Family History Family History: Diabetes Social History ALCOHOL: none Drugs: None Lives: with Family Domestic Violence: Neg Current Medications Current Medications Current Medications Hydroxyzine HCl (Atarax) 10 mg PRN TID PRN PO ITCHING; Start 05/07/20 at 17:00 Sertraline HCl (Zoloft) 50 mg DAILY PO Last administered on 05/09/20at 08:44; Start 05/08/20 at 09:00; Stop 05/09/20 at 11:19; Status DC Amitriptyline HCl (Elavil) 50 mg QHS PO Last administered on 05/08/20at 23:20; Start 05/07/20 at 21:00 Acetaminophen (Tylenol) 325 mg PRN Q6HRS PRN PO MILD PAIN / TEMP > 100.3'F; Start 05/07/20 at 20:00 Iohexol (Omnipaque 300 Mg/ml) 75 ml 1X ONCE IV Last administered on 05/08/20at 13:30; Start 05/08/20 at 11:45; Stop 05/08/20 at 11:46; Status DC Info (CONTRAST GIVEN -- Rx MONITORING) 1 each PRN DAILY PRN MC SEE COMMENTS; Start 05/08/20 at 11:45; Stop 05/10/20 at 11:44 Tramadol HCl (Ultram) 50 mg TID PO Last administered on 05/09/20at 07:35; Start 05/08/20 at 14:00; Stop 05/09/20 at 11:15; Status DC Potassium Chloride (Klor-Con) 40 meq 1X ONCE PO Last administered on 05/08/20at 14:10; Start 05/08/20 at 12:15; Stop 05/08/20 at 12:16; Status DC Sodium Chloride 1,000 ml @ 60 mls/hr [id number] IV Last administered on 05/09/20at 07:36; Start 05/08/20 at 12:30; Stop 05/09/20 at 11:15; Status DC Amylase/Lipase/ Protease (Zenpep 5,000) 2 cap TIDWMEALS PO Last administered on 05/09/20at 12:19; Start 05/08/20 at 13:00 Phytonadione (Vitamin K Ampule) 2 mg 1X ONCE SQ Last administered on 05/09/20at 11:34; Start 05/09/20 at 11:00; Stop 05/09/20 at 11:01; Status DC Meropenem 1 gm/ Sodium Chloride 100 ml @ 200 mls/hr Q12HR IV Last administered on 05/09/20at 11:34; Start 05/09/20 at 11:30 Linezolid/Dextrose 300 ml @ 300 mls/hr Q12HR IV Last administered on 05/09/20at 13:16; Start 05/09/20 at 12:00 Acetaminophen/ Hydrocodone Bitart (Lortab 5/325) 1 tab PRN Q4HRS PRN PO MODERATE - SEVERE PAIN Last administered on 05/09/20at 11:41; Start 05/09/20 at 11:15 Vancomycin HCl (Vancomycin Oral Solution) 125 mg [id number] PO ; Start 05/09/20 at 14:00 Active Scripts Active Tramadol Hcl 50 Mg Tablet 50 Mg PO TID Flagyl (Metronidazole) 500 Mg Tablet 500 Mg PO Q8HRS Cephalexin 250 Mg Capsule 500 Mg PO TID Zoloft (Sertraline Hcl) 50 Mg Tablet 50 Mg PO DAILY Reported Amitriptyline Hcl 50 Mg Tablet 50 Mg PO QHS Hydroxyzine Hcl 10 Mg Tablet 10 Mg PO PRN TID PRN Allergies Allergies: Coded Allergies: Penicillins (Verified Allergy, Intermediate, 05/08/19) rash Sulfa (Sulfonamide Antibiotics) (Verified Allergy, Intermediate, Hives., 05/08/19) lisinopril (Verified Allergy, Intermediate, 05/08/19) ROS General: YES: Fatigue, Malaise, Appetite (decreased) PSYCHOLOGICAL ROS: YES: Irritablity; No: Anxiety, Obsessive thoughts HEENT: No: Heacaches, Visual Changes ALLERGY AND IMMUNOLOGY: No: Nasal Congestion Hematological and Lymphatic: No: Bleeding Problems, Blood Clots, Brusing, Night Sweats ENDOCRINE: No: Mood Swings, Palpitations Breast: No New/Changing Breast Lumps Respiratory: No: Cough, Hemoptysis, Shortness of breath Cardiovascular: No Chest Pain Gastrointestinal: Yes Nausea, Yes Abdominal Pain, Yes Diarrhea; No Vomiting, No Constipation, No Melena, No Hematochezia Genitourinary: No Dysuria, No Flank Pain Musculoskeletal: No Joint Pain Neurological: No Behavorial Changes Skin: No Dry Skin, No Eczema Physical Exam General: Alert, Oriented X3 HEENT: Atraumatic Lungs: Clear to auscultation Heart: Regular rate, No murmurs Abdomen: Other (Abdomen distended and with normal bowel sounds) Extremities: No edema, Normal pulses Skin: No rashes Neuro: Normal speech MUSCULOSKELETAL: No deformity, No swelling Vitals VITALS Vital Signs Date Time Temp Pulse Resp B/P (MAP) Pulse Ox O2 Delivery O2 Flow Rate FiO2 05/09/20 13:17 Room Air 05/09/20 11:59 100.1 93 18 108/61 (77) 93 100.1 Labs Labs Laboratory Tests Test 05/07/20 22:00 05/08/20 07:05 05/09/20 07:30 White Blood Count 9.7 x10^3/uL (4.0-11.0) 11.4 x10^3/uL (4.0-11.0) Red Blood Count 3.06 x10^6/uL (3.50-5.40) 3.43 x10^6/uL (3.50-5.40) Hemoglobin 9.1 g/dL (12.0-15.5) 10.3 g/dL (12.0-15.5) Hematocrit 26.7 % (36.0-47.0) 30.2 % (36.0-47.0) Mean Corpuscular Volume 87 fL (79-100) 88 fL (79-100) Mean Corpuscular Hemoglobin 30 pg (25-35) 30 pg (25-35) Mean Corpuscular Hemoglobin Concent 34 g/dL (31-37) 34 g/dL (31-37) Red Cell Distribution Width 18.5 % (11.5-14.5) 18.3 % (11.5-14.5) Platelet Count 427 x10^3/uL (140-400) 510 x10^3/uL (140-400) Neutrophils (%) (Auto) % (31-73) % (31-73) Lymphocytes (%) (Auto) % (24-48) % (24-48) Monocytes (%) (Auto) % (0-9) % (0-9) Eosinophils (%) (Auto) % (0-3) % (0-3) Basophils (%) (Auto) % (0-3) % (0-3) Neutrophils # (Auto) x10^3/uL (1.8-7.7) x10^3/uL (1.8-7.7) Lymphocytes # (Auto) x10^3/uL (1.0-4.8) x10^3/uL (1.0-4.8) Monocytes # (Auto) x10^3/uL (0.0-1.1) x10^3/uL (0.0-1.1) Eosinophils # (Auto) x10^3/uL (0.0-0.7) x10^3/uL (0.0-0.7) Basophils # (Auto) x10^3/uL (0.0-0.2) x10^3/uL (0.0-0.2) Segmented Neutrophils % 83 % (35-66) 82 % (35-66) Lymphocytes % 12 % (24-48) 7 % (24-48) Monocytes % 4 % (0-10) 3 % (0-10) Eosinophils % 1 % (0-5) 1 % (0-5) Platelet Estimate Increased (ADEQUATE) Increased (ADEQUATE) Anisocytosis Slight Present Target Cells Present Sodium Level 134 mmol/L (136-145) 135 mmol/L (136-145) Potassium Level 3.2 mmol/L (3.5-5.1) 3.5 mmol/L (3.5-5.1) Chloride Level 99 mmol/L (98-107) 100 mmol/L (98-107) Carbon Dioxide Level 26 mmol/L (21-32) 22 mmol/L (21-32) Anion Gap 9 (6-14) 13 (6-14) Blood Urea Nitrogen 15 mg/dL (7-20) 11 mg/dL (7-20) Creatinine 0.8 mg/dL (0.6-1.0) 0.8 mg/dL (0.6-1.0) Estimated GFR (Cockcroft-Gault) 68.7 68.7 BUN/Creatinine Ratio 19 (6-20) Glucose Level 139 mg/dL (70-99) 120 mg/dL (70-99) Calcium Level 8.2 mg/dL (8.5-10.1) 8.2 mg/dL (8.5-10.1) Magnesium Level 2.1 mg/dL (1.8-2.4) 2.0 mg/dL (1.8-2.4) Total Bilirubin 9.9 mg/dL (0.2-1.0) 8.8 mg/dL (0.2-1.0) Aspartate Amino Transf (AST/SGOT) 107 U/L (15-37) 86 U/L (15-37) Alanine Aminotransferase (ALT/SGPT) 48 U/L (14-59) 47 U/L (14-59) Alkaline Phosphatase 997 U/L (46-116) 874 U/L (46-116) Total Protein 7.0 g/dL (6.4-8.2) 6.3 g/dL (6.4-8.2) Albumin 1.8 g/dL (3.4-5.0) 1.6 g/dL (3.4-5.0) Albumin/Globulin Ratio 0.3 (1.0-1.7) Direct Bilirubin 7.9 mg/dL (0.0-0.2) Band Neutrophils % 7 % (0-9) Hypochromasia Present Prothrombin Time 20.6 SEC (11.7-14.0) Prothromb Time International Ratio 1.8 (0.8-1.1) Laboratory Tests Test 05/09/20 07:30 White Blood Count 11.4 x10^3/uL (4.0-11.0) Red Blood Count 3.43 x10^6/uL (3.50-5.40) Hemoglobin 10.3 g/dL (12.0-15.5) Hematocrit 30.2 % (36.0-47.0) Mean Corpuscular Volume 88 fL (79-100) Mean Corpuscular Hemoglobin 30 pg (25-35) Mean Corpuscular Hemoglobin Concent 34 g/dL (31-37) Red Cell Distribution Width 18.3 % (11.5-14.5) Platelet Count 510 x10^3/uL (140-400) Neutrophils (%) (Auto) % (31-73) Lymphocytes (%) (Auto) % (24-48) Monocytes (%) (Auto) % (0-9) Eosinophils (%) (Auto) % (0-3) Basophils (%) (Auto) % (0-3) Neutrophils # (Auto) x10^3/uL (1.8-7.7) Lymphocytes # (Auto) x10^3/uL (1.0-4.8) Monocytes # (Auto) x10^3/uL (0.0-1.1) Eosinophils # (Auto) x10^3/uL (0.0-0.7) Basophils # (Auto) x10^3/uL (0.0-0.2) Segmented Neutrophils % 82 % (35-66) Band Neutrophils % 7 % (0-9) Lymphocytes % 7 % (24-48) Monocytes % 3 % (0-10) Eosinophils % 1 % (0-5) Platelet Estimate Increased (ADEQUATE) Hypochromasia Present Anisocytosis Present Prothrombin Time 20.6 SEC (11.7-14.0) Prothromb Time International Ratio 1.8 (0.8-1.1) Sodium Level 135 mmol/L (136-145) Potassium Level 3.5 mmol/L (3.5-5.1) Chloride Level 100 mmol/L (98-107) Carbon Dioxide Level 22 mmol/L (21-32) Anion Gap 13 (6-14) Blood Urea Nitrogen 11 mg/dL (7-20) Creatinine 0.8 mg/dL (0.6-1.0) Estimated GFR (Cockcroft-Gault) 68.7 Glucose Level 120 mg/dL (70-99) Calcium Level 8.2 mg/dL (8.5-10.1) Magnesium Level 2.0 mg/dL (1.8-2.4) Images Images CT Abdomen: Images through the lung bases demonstrate mild cardiomegaly. Dependent subsegmental atelectasis is seen bilaterally. The spleen is mildly enlarged measuring 14.6 cm in length. Air is seen throughout the intrahepatic bile ducts. No acute focal abnormality of liver is seen. The adrenal glands and kidneys are within normal limits. Surgical changes are seen consistent with patient's history of a Whipple procedure. The remaining body/tail of pancreas has a dilated main pancreatic duct. No focal abnormality of the remaining pancreas is seen. Atherosclerotic calcification of the abdominal aorta and its branches is noted. The bowel is difficult to evaluate without oral contrast material. A moderate to large amount of stool is seen throughout the colon. There is no definite evidence of bowel obstruction. A moderate to large amount of ascites is seen throughout the abdomen which has increased since the previous study. No free air is noted. Images through the pelvis demonstrate the urinary bladder distended with urine. A moderate amount of ascites is seen throughout the pelvis. This is increased since the previous study. Calcified phleboliths are seen within the pelvis. The osseous structures are unchanged. IMPRESSION: Moderate to large amount of ascites is seen which has increased since the previous study. Assessment/Plan Assessment/Plan Assessment: Obstructive jaundice Ascites Hx of extrahepatic cholangiocarcinoma s/p whipple resection in 2019 Weight loss Normocytic anemia Elevated INR, likely from hepatic dysfunction vs vitamin k deficiency Recommendations: - I requested and reviewed CT abdomen and pelvis. Discussed findings with Natalya and her [id number] - Agree with GI consultation - Consider hepatobiliary input reg management of obstructive jaundice - Recommend paracentesis in IR for cytology, cell count, albumin, culture - Consider percutanous vs endoscopic intervention for obstructive jaundice per GI/IR/surgery - Agree with vitamin K replacement - D/W Dr Perez - Will follow Thank you for the consult Dell Ram MD Medical Oncology RIP RAM MD May 09, 2020 14:34
[2020-05-09] MEDS: VANCOMYCIN 125 MG/2.5 ML ORAL SOLUTION. PO SCH ×3 (15:04→21:03)
--- NOTE | 2020-05-09 19:15 | CONS ---
DATE OF CONSULTATION: 05/09/2020 REFERRING PHYSICIAN: Dr. Perez. REASON FOR CONSULTATION: Fever and abdominal pain. HISTORY OF PRESENT ILLNESS: This patient is an 84-year-old female who presented with complaints of abdominal pain, distention and jaundice. She has history of cholangiocarcinoma, status post Whipple procedure in 04/2019. She did not tolerate adjuvant chemotherapy and surveillance was recommended. CT abdomen and pelvis scan on 05/08 showed moderate to large amount of ascites and air seen throughout the intrahepatic bile ducts. Interventional Radiology has been consulted for paracentesis along with cell count and culture. The patient spiked a fever. Blood cultures were sent. She was started on Zyvox and meropenem per primary. The patient says she is not very hungry. She feels weak and fatigued. She has been having diarrhea associated with bowel urgency and incontinence. She has had 3 stools so far within the last 24 hours. She is having to wear a brief. She was hospitalized about 3 weeks ago for Klebsiella urinary tract infection and Clostridium difficile colitis. She was treated with Rocephin and p.o. vancomycin. She was discharged on Keflex and metronidazole. PAST MEDICAL HISTORY: Cholangiocarcinoma. She did not tolerate adjuvant chemotherapy and is on surveillance. Fibromyalgia, hypertension, hyperlipidemia, depression. Clostridium difficile colitis 04/14/2020. History of Klebsiella UTI. PAST SURGICAL HISTORY: Whipple procedure in 04/2019. Cholecystectomy, cataract extraction and hysterectomy. FAMILY HISTORY: Diabetes. SOCIAL HISTORY: The patient is and lives at home. She has a son. She is a nonsmoker and does not drink. ALLERGIES: LISINOPRIL, PENICILLIN AND SULFA. MEDICATIONS: Reviewed on the MAR and includes linezolid, meropenem, probiotics. REVIEW OF SYSTEMS: Per HPI, otherwise all other review of systems are negative. PHYSICAL EXAMINATION: VITAL SIGNS: Temperature 100.1, blood pressure 108/61, heart rate 93, respiratory rate 18, pulse oximetry is 93% on room air. GENERAL: The patient is propped up in bed, alert and smiling. HEENT: Scleral icterus. Oropharynx dry. No lesions seen. NECK: Supple. LUNGS: Clear to auscultation. HEART: S1 and S2. ABDOMEN: Distended, taut, bowel sounds present. Tender to deep palpation. No rebound. EXTREMITIES: No gross edema or cyanosis. SKIN: Warm to touch. No signs of rash. NEUROLOGIC: Alert and answering questions appropriately. LABORATORY DATA: WBC 11.4, hemoglobin 10.3, platelets 510,000. Sodium 135, potassium 3.5, creatinine 0.8, BUN 11, glucose 120, AST 86, ALT 47, total bilirubin 0.8, direct bilirubin 7.9, albumin 1.6. CA 19-9 antigen 385. INR 1.8. Blood cultures from 05/09 are pending. Abdominal/pelvic CT per HPI. Chest x-ray shows no acute cardiopulmonary process. IMPRESSION: 1. Fever. 2. Leukocytosis. 3. Abdominal pain. 4. Ascites. 5. Diarrhea. 6. Recent history of Clostridium difficile colitis on 04/14/2020. 7. Hyperbilirubinemia. 8. 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 She did not tolerate adjuvant chemotherapy. 9. Severe protein-calorie malnutrition. PLAN: 1. The patient was started on Zyvox and meropenem. Continue for now. Recommend adding oral vancomycin with recent history of Clostridium difficile colitis. 2. IR has been consulted for paracentesis. Await cell count and abdominal fluid cultures. 3. Follow up on blood culture results. 4. Monitor laboratory values and temperature. 5. Maintain aspiration precautions. 6. Discussed with nursing. 7. Contact isolation with history of recent Clostridium difficile. Thank you, Dr. Perez, for asking us to participate in this patient's care. Should you have further questions or concerns, please call. The patient was seen and examined and plan of care implemented by Dr. Jake Candelaria. JAKE CANDELARIA MD DR: POLLY/valorie JOB#: [id number] / [id number]
[2020-05-09] MEDS: AMITRIPTYLINE HCL 25 MG TABLET. PO SCH (21:03)
[2020-05-09] MEDS: LACTOBACILLUS RHAMNOSUS GG 1 CAPSULE. PO SCH (21:03)
[2020-05-10] VITALS (9 sets, daily range): BP systolic 94–109; BP diastolic 52–61
[2020-05-10 05:15] LABS: BASO % 0 % (0-3); EOS # 0.1 x10^3/uL (0.0-0.7); EOS % 1 % (0-3); HEMATOCRIT 21.7 % (36.0-47.0); HEMOGLOBIN 7.4 g/dL (12.0-15.5); LYMPH # 3.6 x10^3/uL (1.0-4.8); LYMPH % 43 % (24-48); MEAN CORPUSCULAR HEMOGLOBIN 30 pg (25-35); MEAN CORPUSCULAR HGB CONC 34 g/dL (31-37); MEAN CORPUSCULAR VOLUME 88 fL (79-100); MONO # 0.4 x10^3/uL (0.0-1.1); MONO % 5 % (0-9); NEUT # 4.3 x10^3/uL (1.8-7.7); NEUT % 51 % (31-73); PLATELET COUNT 352 x10^3/uL (140-400); RED BLOOD COUNT 2.45 x10^6/uL (3.50-5.40); RED CELL DISTRIBUTION WIDTH 17.8 % (11.5-14.5); WHITE BLOOD COUNT 8.4 x10^3/uL (4.0-11.0)
[2020-05-10 05:27] LABS: PROTHROMBIN TIME PATIENT 16.3 SEC (11.7-14.0)
[2020-05-10 05:33] LABS: ALBUMIN 1.5 g/dL (3.4-5.0); ALBUMIN/GLOBULIN RATIO 0.4 (1.0-1.7); CALCIUM 7.8 mg/dL (8.5-10.1); CREATININE 0.8 mg/dL (0.6-1.0); GFR 68.7; POTASSIUM 3.4 mmol/L (3.5-5.1); TOTAL BILIRUBIN 8.6 mg/dL (0.2-1.0); TOTAL PROTEIN 5.7 g/dL (6.4-8.2)
[2020-05-10] MEDS ORDERED: LIDOCAINE WITH 8.4% SOD BICARB 3 ML DISP.SYRIN. ONE (08:09)
[2020-05-10] MEDS ORDERED: LIDOCAINE WITH 8.4% SOD BICARB 3 ML DISP.SYRIN. INJ ONE ×2 (08:15→09:00)
[2020-05-10] MEDS: LACTOBACILLUS RHAMNOSUS GG 1 CAPSULE. PO SCH ×2 (09:00→20:36)
[2020-05-10] MEDS: VANCOMYCIN 125 MG/2.5 ML ORAL SOLUTION. PO SCH ×4 (09:00→20:36)
[2020-05-10] MEDS ORDERED: ePHEDrine PF IN SALINE 50 MG/10 ML SYRINGE. IV ONE (09:00)
[2020-05-10] MEDS ORDERED: SUCCINYLCHOLINE 200 MG/10 ML VIAL. ONE (09:00)
[2020-05-10] MEDS: MEROPENEM 1 GM in IV NORMAL SALINE 100ML 100 ML IV SCH ×2 (10:24→20:37)
--- NOTE | 2020-05-10 10:25 | PDOC ---
PROGRESS NOTES Date of Service DATE: 05/10/20 TIME: 10:18 Subjective Subjective returned from paracentesis. abdomen not as distended . some lower abdominal discomfort. lab noted. potassium 3.4. hgb 7.4. jaundiced. bilirubin 8.6. Objective Objective Vital Signs Date Time Temp Pulse Resp B/P (MAP) Pulse Ox O2 Delivery O2 Flow Rate FiO2 05/10/20 09:15 80 20 104/56 (72) 95 Room Air 05/10/20 07:00 98.5 98.5 Intake and Output 05/10/20 06:59 Intake Total 1140 ml Output Total 300 ml Balance 840 ml Intake Oral 540 ml Blood Product IV Normal Saline Flush 600 ml Output Urine Total 300 ml # Voids 1 Physical Exam Abdomen: Soft, Other (fluid wave. mild lower abdominal tenderness without guarding) Heart: Regular rate, Normal S1, Normal S2 Extremities: No edema General: Alert HEENT: Atraumatic, PERRLA Neuro: Normal gait Psych/Mental Status: Mental status NL Skin: Other (jaundiced) Assessment Assessment . 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 Suspected obstructive jaundice. 3. 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 paracentesisi 05/10/20 4. Anemia. 5. Hypokalemia 6. Severe protein-calorie malnutrition. 7. Fibromyalgia. 8. Hypotension low grade fever resolved abdominal pain hx of c,.diff Plan Plan of Care continue iv meropenem and zyvox await paracentesis cytology and culture abdominal ultrasound discussed with GI MANAGER FILE kcl today lab tomorrow transfuse if hgb less than 7 continue oral vancomycin Comment Review of Relevant I have reviewed the following items betty (where applicable) has been applied. Labs Laboratory Tests Test 05/09/20 07:30 05/10/20 03:42 White Blood Count 11.4 x10^3/uL (4.0-11.0) 8.4 x10^3/uL (4.0-11.0) Red Blood Count 3.43 x10^6/uL (3.50-5.40) 2.45 x10^6/uL (3.50-5.40) Hemoglobin 10.3 g/dL (12.0-15.5) 7.4 g/dL (12.0-15.5) Hematocrit 30.2 % (36.0-47.0) 21.7 % (36.0-47.0) Mean Corpuscular Volume 88 fL (79-100) 88 fL (79-100) Mean Corpuscular Hemoglobin 30 pg (25-35) 30 pg (25-35) Mean Corpuscular Hemoglobin Concent 34 g/dL (31-37) 34 g/dL (31-37) Red Cell Distribution Width 18.3 % (11.5-14.5) 17.8 % (11.5-14.5) Platelet Count 510 x10^3/uL (140-400) 352 x10^3/uL (140-400) Neutrophils (%) (Auto) % (31-73) 51 % (31-73) Lymphocytes (%) (Auto) % (24-48) 43 % (24-48) Monocytes (%) (Auto) % (0-9) 5 % (0-9) Eosinophils (%) (Auto) % (0-3) 1 % (0-3) Basophils (%) (Auto) % (0-3) 0 % (0-3) Neutrophils # (Auto) x10^3/uL (1.8-7.7) 4.3 x10^3/uL (1.8-7.7) Lymphocytes # (Auto) x10^3/uL (1.0-4.8) 3.6 x10^3/uL (1.0-4.8) Monocytes # (Auto) x10^3/uL (0.0-1.1) 0.4 x10^3/uL (0.0-1.1) Eosinophils # (Auto) x10^3/uL (0.0-0.7) 0.1 x10^3/uL (0.0-0.7) Basophils # (Auto) x10^3/uL (0.0-0.2) 0.0 x10^3/uL (0.0-0.2) Segmented Neutrophils % 82 % (35-66) Band Neutrophils % 7 % (0-9) Lymphocytes % 7 % (24-48) Monocytes % 3 % (0-10) Eosinophils % 1 % (0-5) Platelet Estimate Increased (ADEQUATE) Hypochromasia Present Anisocytosis Present Prothrombin Time 20.6 SEC (11.7-14.0) 16.3 SEC (11.7-14.0) Prothromb Time International Ratio 1.8 (0.8-1.1) 1.4 (0.8-1.1) Sodium Level 135 mmol/L (136-145) 135 mmol/L (136-145) Potassium Level 3.5 mmol/L (3.5-5.1) 3.4 mmol/L (3.5-5.1) Chloride Level 100 mmol/L (98-107) 102 mmol/L (98-107) Carbon Dioxide Level 22 mmol/L (21-32) 25 mmol/L (21-32) Anion Gap 13 (6-14) 8 (6-14) Blood Urea Nitrogen 11 mg/dL (7-20) 12 mg/dL (7-20) Creatinine 0.8 mg/dL (0.6-1.0) 0.8 mg/dL (0.6-1.0) Estimated GFR (Cockcroft-Gault) 68.7 68.7 Glucose Level 120 mg/dL (70-99) 111 mg/dL (70-99) Calcium Level 8.2 mg/dL (8.5-10.1) 7.8 mg/dL (8.5-10.1) Magnesium Level 2.0 mg/dL (1.8-2.4) BUN/Creatinine Ratio 15 (6-20) Total Bilirubin 8.6 mg/dL (0.2-1.0) Aspartate Amino Transf (AST/SGOT) 64 U/L (15-37) Alanine Aminotransferase (ALT/SGPT) 37 U/L (14-59) Alkaline Phosphatase 751 U/L (46-116) Total Protein 5.7 g/dL (6.4-8.2) Albumin 1.5 g/dL (3.4-5.0) Albumin/Globulin Ratio 0.4 (1.0-1.7) Laboratory Tests Test 05/10/20 03:42 White Blood Count 8.4 x10^3/uL (4.0-11.0) Red Blood Count 2.45 x10^6/uL (3.50-5.40) Hemoglobin 7.4 g/dL (12.0-15.5) Hematocrit 21.7 % (36.0-47.0) Mean Corpuscular Volume 88 fL (79-100) Mean Corpuscular Hemoglobin 30 pg (25-35) Mean Corpuscular Hemoglobin Concent 34 g/dL (31-37) Red Cell Distribution Width 17.8 % (11.5-14.5) Platelet Count 352 x10^3/uL (140-400) Neutrophils (%) (Auto) 51 % (31-73) Lymphocytes (%) (Auto) 43 % (24-48) Monocytes (%) (Auto) 5 % (0-9) Eosinophils (%) (Auto) 1 % (0-3) Basophils (%) (Auto) 0 % (0-3) Neutrophils # (Auto) 4.3 x10^3/uL (1.8-7.7) Lymphocytes # (Auto) 3.6 x10^3/uL (1.0-4.8) Monocytes # (Auto) 0.4 x10^3/uL (0.0-1.1) Eosinophils # (Auto) 0.1 x10^3/uL (0.0-0.7) Basophils # (Auto) 0.0 x10^3/uL (0.0-0.2) Prothrombin Time 16.3 SEC (11.7-14.0) Prothromb Time International Ratio 1.4 (0.8-1.1) Sodium Level 135 mmol/L (136-145) Potassium Level 3.4 mmol/L (3.5-5.1) Chloride Level 102 mmol/L (98-107) Carbon Dioxide Level 25 mmol/L (21-32) Anion Gap 8 (6-14) Blood Urea Nitrogen 12 mg/dL (7-20) Creatinine 0.8 mg/dL (0.6-1.0) Estimated GFR (Cockcroft-Gault) 68.7 BUN/Creatinine Ratio 15 (6-20) Glucose Level 111 mg/dL (70-99) Calcium Level 7.8 mg/dL (8.5-10.1) Total Bilirubin 8.6 mg/dL (0.2-1.0) Aspartate Amino Transf (AST/SGOT) 64 U/L (15-37) Alanine Aminotransferase (ALT/SGPT) 37 U/L (14-59) Alkaline Phosphatase 751 U/L (46-116) Total Protein 5.7 g/dL (6.4-8.2) Albumin 1.5 g/dL (3.4-5.0) Albumin/Globulin Ratio 0.4 (1.0-1.7) Medications Current Medications Hydroxyzine HCl (Atarax) 10 mg PRN TID PRN PO ITCHING; Start 05/07/20 at 17:00 Sertraline HCl (Zoloft) 50 mg DAILY PO Last administered on 05/09/20at 08:44; Start 05/08/20 at 09:00; Stop 05/09/20 at 11:19; Status DC Amitriptyline HCl (Elavil) 50 mg QHS PO Last administered on 05/09/20at 21:03; Start 05/07/20 at 21:00 Acetaminophen (Tylenol) 325 mg PRN Q6HRS PRN PO MILD PAIN / TEMP > 100.3'F; Start 05/07/20 at 20:00 Iohexol (Omnipaque 300 Mg/ml) 75 ml 1X ONCE IV Last administered on 05/08/20at 13:30; Start 05/08/20 at 11:45; Stop 05/08/20 at 11:46; Status DC Info (CONTRAST GIVEN -- Rx MONITORING) 1 each PRN DAILY PRN MC SEE COMMENTS; Start 05/08/20 at 11:45; Stop 05/10/20 at 11:44 Tramadol HCl (Ultram) 50 mg TID PO Last administered on 05/09/20at 07:35; Start 05/08/20 at 14:00; Stop 05/09/20 at 11:15; Status DC Potassium Chloride (Klor-Con) 40 meq 1X ONCE PO Last administered on 05/08/20at 14:10; Start 05/08/20 at 12:15; Stop 05/08/20 at 12:16; Status DC Sodium Chloride 1,000 ml @ 60 mls/hr [id number] IV Last administered on 05/09/20at 07:36; Start 05/08/20 at 12:30; Stop 05/09/20 at 11:15; Status DC Amylase/Lipase/ Protease (Zenpep 5,000) 2 cap TIDWMEALS PO Last administered on 05/09/20at 17:23; Start 05/08/20 at 13:00 Phytonadione (Vitamin K Ampule) 2 mg 1X ONCE SQ Last administered on 05/09/20at 11:34; Start 05/09/20 at 11:00; Stop 05/09/20 at 11:01; Status DC Meropenem 1 gm/ Sodium Chloride 100 ml @ 200 mls/hr Q12HR IV Last administered on 05/09/20at 21:04; Start 05/09/20 at 11:30 Linezolid/Dextrose 300 ml @ 300 mls/hr Q12HR IV Last administered on 05/09/20at 21:04; Start 05/09/20 at 12:00 Acetaminophen/ Hydrocodone Bitart (Lortab 5/325) 1 tab PRN Q4HRS PRN PO MODERATE - SEVERE PAIN Last administered on 05/09/20at 11:41; Start 05/09/20 at 11:15 Vancomycin HCl (Vancomycin Oral Solution) 125 mg [id number] PO Last administered on 05/09/20at 21:03; Start 05/09/20 at 14:00 Lactobacillus Rhamnosus (Culturelle) 1 cap BID PO Last administered on 05/09/20at 21:03; Start 05/09/20 at 21:00 Lidocaine HCl (Buffered Lidocaine 1%) 3 ml STK-MED ONCE .ROUTE ; Start 05/10/20 at 08:09; Stop 05/10/20 at 08:09; Status DC Lidocaine HCl (Buffered Lidocaine 1%) 6 ml 1X ONCE INJ Last administered on 05/10/20at 08:15; Start 05/10/20 at 08:15; Stop 05/10/20 at 08:19; Status DC Lidocaine HCl (Buffered Lidocaine 1%) 3 ml 1X ONCE INJ ; Start 05/10/20 at 09:00; Stop 05/10/20 at 09:01; Status DC Active Scripts Active Tramadol Hcl 50 Mg Tablet 50 Mg PO TID Flagyl (Metronidazole) 500 Mg Tablet 500 Mg PO Q8HRS Cephalexin 250 Mg Capsule 500 Mg PO TID Zoloft (Sertraline Hcl) 50 Mg Tablet 50 Mg PO DAILY Reported Amitriptyline Hcl 50 Mg Tablet 50 Mg PO QHS Hydroxyzine Hcl 10 Mg Tablet 10 Mg PO PRN TID PRN Vitals/I & O Vital Sign - Last 24 Hours 05/09/20 05/09/20 05/09/20 05/09/20 11:41 11:59 13:17 15:26 Temp 100.1 99.2 100.1 99.2 Pulse 93 81 Resp 18 20 B/P (MAP) 108/61 (77) 87/44 Pulse Ox 93 O2 Delivery Room Air Room Air Room Air 05/09/20 05/09/20 05/09/20 05/09/20 15:50 15:59 16:50 17:50 Temp 98.4 98.2 98.3 98.6 98.4 98.2 98.3 98.6 Pulse 83 79 79 76 Resp 18 B/P (MAP) 102/55 90/51 (64) 94/49 93/51 Pulse Ox 95 O2 Delivery Room Air 05/09/20 05/09/20 05/09/20 05/09/20 19:40 19:50 19:50 21:16 Temp 97.6 97.6 97.6 97.6 97.6 97.6 Pulse 79 79 83 Resp 20 B/P (MAP) 90/50 (63) 90/50 92/59 Pulse Ox 93 O2 Delivery Room Air Room Air 05/09/20 05/09/20 05/09/20 05/10/20 22:16 23:22 23:22 02:58 Temp 97.8 98.2 98.2 98.2 97.8 98.2 98.2 98.2 Pulse 77 76 76 72 Resp 18 B/P (MAP) 95/56 94/52 (66) 94/52 97/53 (68) Pulse Ox 93 94 O2 Delivery Room Air Room Air 05/10/20 05/10/20 05/10/20 05/10/20 07:00 07:15 08:50 09:00 Temp 98.5 98.5 Pulse 68 86 87 Resp 20 B/P (MAP) 94/52 (66) 100/56 (71) 102/52 (69) Pulse Ox 94 96 97 O2 Delivery Room Air Room Air Room Air Room Air 05/10/20 09:15 Pulse 80 Resp 20 B/P (MAP) 104/56 (72) Pulse Ox 95 O2 Delivery Room Air Intake and Output 05/09/20 05/09/20 05/10/20 14:59 22:59 06:59 Intake Total 240 ml 800 ml 100 ml Output Total 300 ml Balance 240 ml 800 ml -200 ml Justicifation of Admission Dx: Justifications for Admission: Justification of Admission Dx: Yes SRINIVASA ABDULLAHI MD May 10, 2020 10:25
[2020-05-10] MEDS ORDERED: POTASSIUM CHLORIDE 20 MEQ TABLET.ER. PO ONE (10:30)
[2020-05-10 10:50] LABS: % ATYL 1 % (0-0); % BANDS 2 % (0-9); % EOS 1 % (0-5); % LYMPHS 11 % (24-48); % MONOS 5 % (0-10); % MYELOS 2 % (0-0); % SEGS 78 % (35-66); PLT ESTIMATE ADEQUATE (ADEQUATE)
[2020-05-10 10:51] LABS: ANISOCYTOSIS SLIGHT
--- NOTE | 2020-05-10 11:07 | PDOC ---
Date of Service: DATE: 05/10/20 TIME: 10:59 Subjective: Subjective: Back from paracentesis, working w/ therapy. Objective: Objective: D/w Dr. Perez - wondering if needs ERCP/stent for jaundice. No GI concerns per nurse. Vital Signs: Vital Signs Date Time Temp Pulse Resp B/P (MAP) Pulse Ox O2 Delivery O2 Flow Rate FiO2 05/10/20 09:15 80 20 104/56 (72) 95 Room Air 05/10/20 07:00 98.5 98.5 Labs: Laboratory Tests Test 05/10/20 03:42 White Blood Count 8.4 x10^3/uL Red Blood Count 2.45 x10^6/uL Hemoglobin 7.4 g/dL Hematocrit 21.7 % Mean Corpuscular Volume 88 fL Mean Corpuscular Hemoglobin 30 pg Mean Corpuscular Hemoglobin Concent 34 g/dL Red Cell Distribution Width 17.8 % Platelet Count 352 x10^3/uL Neutrophils (%) (Auto) 51 % Lymphocytes (%) (Auto) 43 % Monocytes (%) (Auto) 5 % Eosinophils (%) (Auto) 1 % Basophils (%) (Auto) 0 % Neutrophils # (Auto) 4.3 x10^3/uL Lymphocytes # (Auto) 3.6 x10^3/uL Monocytes # (Auto) 0.4 x10^3/uL Eosinophils # (Auto) 0.1 x10^3/uL Basophils # (Auto) 0.0 x10^3/uL Segmented Neutrophils % 78 % Band Neutrophils % 2 % Lymphocytes % 11 % Atypical Lymphocytes % (Manual) 1 % Monocytes % 5 % Eosinophils % 1 % Myelocytes % 2 % Platelet Estimate Adequate Anisocytosis Slight Prothrombin Time 16.3 SEC Prothromb Time International Ratio 1.4 Sodium Level 135 mmol/L Potassium Level 3.4 mmol/L Chloride Level 102 mmol/L Carbon Dioxide Level 25 mmol/L Anion Gap 8 Blood Urea Nitrogen 12 mg/dL Creatinine 0.8 mg/dL Estimated GFR (Cockcroft-Gault) 68.7 BUN/Creatinine Ratio 15 Glucose Level 111 mg/dL Calcium Level 7.8 mg/dL Total Bilirubin 8.6 mg/dL Aspartate Amino Transf (AST/SGOT) 64 U/L Alanine Aminotransferase (ALT/SGPT) 37 U/L Alkaline Phosphatase 751 U/L Total Protein 5.7 g/dL Albumin 1.5 g/dL Albumin/Globulin Ratio 0.4 Imaging: CT A/P 05/08 IMPRESSION: Moderate to large amount of ascites is seen which has increased since the previous study. CXR 05/08 IMPRESSION: No acute cardiopulmonary process. Paracentesis 05/10 pending Abd US 03/2020 Discussion: Ultrasound evaluation of the right upper abdomen was performed. Static images are submitted to PACS. The pancreas is partially visualized. Visualized portions of the pancreatic body demonstrate no gross abnormality. Visualized portions of the IVC are unremarkable. Cholecystectomy noted. Multiple shadowing structures are seen within the liver consistent with pneumobilia is identified on CT scan performed earlier same day. This limits evaluation of the intrahepatic biliary tree.Visualized portions of the intrahepatic biliary tree including but appearsto be the common hepatic duct appear to be mildly prominent, but this is nonspecific in the setting of prior Whipple procedure. The liver is normalin size. No other focal hepatic lesions are appreciated. The portal vein was nonvisualized. The right kidney is unremarkable measuring 9 cm in length. Ascites is noted in the right upper quadrant and to a lesser degree the left lower quadrant. IMPRESSION: 1. Pneumobilia, similar to findings on prior CT scan. Mild dilatation of intrahepatic bile ducts, not unexpected given surgical history. 2. Mild ascites PE: GEN: NAD, sitting on edge of bed LUNGS: CTAB HEART: RRR ABD: some distention - has gait belt on for therapy NEURO/PSYCH: A & O 3 A/P: H/o cholangiocarcinoma s/p Whipple, ascites s/p paracentesis, jaundice - ?peritoneal carcinomatosis/malignant ascites w/ elevated CA125 last month Anemia Recent C Diff -- D/w Dr. Bingham - imaging noted pneumobilia so not clearly obstructed - consider MRCP, additional recs pending. Justicifation of Admission Dx: Justifications for Admission: Justification of Admission Dx: Yes CORI PEDERSEN May 10, 2020 11:07
--- NOTE | 2020-05-10 12:43 | PDOC ---
Infectious Disease Note Subjective Subjective Had paracentesis this am and feels better No F/c/S/N/V/d/SOA ROS ROS o/w neg Vital Sign Vital Signs Vital Signs Date Time Temp Pulse Resp B/P (MAP) Pulse Ox O2 Delivery O2 Flow Rate FiO2 05/10/20 11:00 98.3 77 18 98/57 (71) 93 Room Air 98.3 Physical Exam PHYSICAL EXAM GENERAL: The patient is propped up in bed, alert and smiling. HEENT: Scleral icterus. Oropharynx dry. No lesions seen. NECK: Supple. LUNGS: Clear to auscultation. HEART: S1 and S2. ABDOMEN: Distended, taut, bowel sounds present. Tender to deep palpation. No rebound. EXTREMITIES: No gross edema or cyanosis. SKIN: Warm to touch. No signs of rash. NEUROLOGIC: Alert and answering questions appropriately. Labs Lab Laboratory Tests Test 05/10/20 03:42 White Blood Count 8.4 x10^3/uL (4.0-11.0) Red Blood Count 2.45 x10^6/uL (3.50-5.40) Hemoglobin 7.4 g/dL (12.0-15.5) Hematocrit 21.7 % (36.0-47.0) Mean Corpuscular Volume 88 fL (79-100) Mean Corpuscular Hemoglobin 30 pg (25-35) Mean Corpuscular Hemoglobin Concent 34 g/dL (31-37) Red Cell Distribution Width 17.8 % (11.5-14.5) Platelet Count 352 x10^3/uL (140-400) Neutrophils (%) (Auto) 51 % (31-73) Lymphocytes (%) (Auto) 43 % (24-48) Monocytes (%) (Auto) 5 % (0-9) Eosinophils (%) (Auto) 1 % (0-3) Basophils (%) (Auto) 0 % (0-3) Neutrophils # (Auto) 4.3 x10^3/uL (1.8-7.7) Lymphocytes # (Auto) 3.6 x10^3/uL (1.0-4.8) Monocytes # (Auto) 0.4 x10^3/uL (0.0-1.1) Eosinophils # (Auto) 0.1 x10^3/uL (0.0-0.7) Basophils # (Auto) 0.0 x10^3/uL (0.0-0.2) Segmented Neutrophils % 78 % (35-66) Band Neutrophils % 2 % (0-9) Lymphocytes % 11 % (24-48) Atypical Lymphocytes % (Manual) 1 % (0-0) Monocytes % 5 % (0-10) Eosinophils % 1 % (0-5) Myelocytes % 2 % (0-0) Platelet Estimate Adequate (ADEQUATE) Anisocytosis Slight Prothrombin Time 16.3 SEC (11.7-14.0) Prothromb Time International Ratio 1.4 (0.8-1.1) Sodium Level 135 mmol/L (136-145) Potassium Level 3.4 mmol/L (3.5-5.1) Chloride Level 102 mmol/L (98-107) Carbon Dioxide Level 25 mmol/L (21-32) Anion Gap 8 (6-14) Blood Urea Nitrogen 12 mg/dL (7-20) Creatinine 0.8 mg/dL (0.6-1.0) Estimated GFR (Cockcroft-Gault) 68.7 BUN/Creatinine Ratio 15 (6-20) Glucose Level 111 mg/dL (70-99) Calcium Level 7.8 mg/dL (8.5-10.1) Total Bilirubin 8.6 mg/dL (0.2-1.0) Aspartate Amino Transf (AST/SGOT) 64 U/L (15-37) Alanine Aminotransferase (ALT/SGPT) 37 U/L (14-59) Alkaline Phosphatase 751 U/L (46-116) Total Protein 5.7 g/dL (6.4-8.2) Albumin 1.5 g/dL (3.4-5.0) Albumin/Globulin Ratio 0.4 (1.0-1.7) Objective Assessment 1. Fever - better. 2. Leukocytosis - better. 3. Abdominal pain.s/p Paracentesis 1900 ml out 4. Ascites. 5. Diarrhea. 6. Recent history of Clostridium difficile colitis on 04/14/2020. 7. Hyperbilirubinemia. 8. 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 She did not tolerate adjuvant chemotherapy. 9. Severe protein-calorie malnutrition. Plan Plan of Care Patient was stated on Zyvox and meropenem per primary 05/09 add po vancomycin with recent h/o C. difficile f/u blood cultures/paracentesis results Monitor labs/temp Maintain aspiration precautions D/w nursing/family JERRELL GOODSON MD May 10, 2020 12:43
[2020-05-10 14:53] LABS: BF CLARITY CLEAR; BF COLOR YELLOW; BF SOURCE PERITONEAL
[2020-05-10 14:54] LABS: BF MON % 40 %; BF PMN % 60 %; BF RBC COUNT 350 /cmm (Not Established); BF WBC COUNT 364 /cmm (Not Established)
--- NOTE | 2020-05-10 14:57 | RAD ---
Ultrasound-guided paracentesis 05/10/2020 12:53 PM Procedure: The risks and benefits of the procedure were discussed the patient. Informed consent was obtained. A timeout procedure was performed. Sonographic evaluation of the abdomen was performed demonstrating ascites . The right lower quadrant was prepped and draped using maximum sterile barrier technique. 1% lidocaine without epinephrine was administered for local anesthesia. Real-time ultrasonographic guidance was used in passing a 5 [place] Yueh catheter into the fluid collection. 2 L of serous ascites was removed. The catheter was removed and pressure held to achieve hemostasis. A sterile dressing was applied. Impression: Successful ultrasound-guided paracentesis
--- NOTE | 2020-05-10 16:00 | NUR ---
Covid swab collected and walked to lab.
--- NOTE | 2020-05-10 16:53 | RAD ---
EXAM: ABDOMINAL ULTRASOUND. HISTORY: Obstructive jaundice, cholangiocarcinoma, Whipple procedure. COMPARISON: 05/08/2020. FINDINGS: Sonographic evaluation of the abdomen was performed. The liver appears normal in parenchymal echotexture. There are no focal lesions. Reconstitution of the intrahepatic portions of the portal venous system is suspected, versus intrahepatic cavernous transformation. The spleen measures 14.6 cm. The gallbladder is surgically absent. There is no sonographic Cash sign. A portion of the proximal common duct is measured at 6 mm. This appears decreased from [address] Echogenic regions within the left hepatic lobe likely correspond with pneumobilia as seen on prior CT. There is mild to moderate intrahepatic biliary dilatation within the right hepatic lobe. The visualized portions of the head of the pancreas reveal no abnormality. The right kidney measures 9.6 cm. Cortical thickness and echogenicity are preserved. There is no hydronephrosis. The left kidney measures 9.2 cm. Cortical thickness and echogenicity are preserved. There is no hydronephrosis. The visualized portions of the abdominal aorta and inferior vena cava are grossly patent and normal in caliber. There is moderate perihepatic ascites. IMPRESSION: 1. Pneumobilia. Moderate intrahepatic biliary dilatation. The common duct does not appear clearly dilated at [address] could provide better assessment of the biliary anatomy than MRCP given pneumobilia if there is persistent concern. 2. Moderate perihepatic ascites. Mild splenomegaly. 3. Suspect reconstitution of the intrahepatic portal venous system versus cavernous transformation. Electronically signed by: Luc Castillo MD (05/10/2020 4:50 PM) [id number]
[2020-05-10] MEDS: HYDROcodone/APAP 5/325MG 1 TAB TABLET PO PRN (19:36)
[2020-05-10] MEDS: AMITRIPTYLINE HCL 25 MG TABLET. PO SCH (20:37)
[2020-05-11] MEDS: HYDROcodone/APAP 5/325MG 1 TAB TABLET PO PRN ×2 (02:50→23:54)
[2020-05-11 03:00] VITALS: BP 104/64
[2020-05-11 05:10] LABS: CREATININE 0.7 mg/dL (0.6-1.0); GFR 80.1; POTASSIUM 4.5 mmol/L (3.5-5.1)
[2020-05-11 07:00] VITALS: BP 99/56
[2020-05-11 07:54] LABS: BASO # 0.1 x10^3/uL (0.0-0.2); BASO % 1 % (0-3); EOS # 0.2 x10^3/uL (0.0-0.7); EOS % 2 % (0-3); HEMATOCRIT 22.5 % (36.0-47.0); HEMOGLOBIN 7.7 g/dL (12.0-15.5); LYMPH # 2.8 x10^3/uL (1.0-4.8); LYMPH % 39 % (24-48); MEAN CORPUSCULAR HEMOGLOBIN 30 pg (25-35); MEAN CORPUSCULAR HGB CONC 34 g/dL (31-37); MEAN CORPUSCULAR VOLUME 89 fL (79-100); MONO # 0.5 x10^3/uL (0.0-1.1); MONO % 8 % (0-9); NEUT # 3.6 x10^3/uL (1.8-7.7); NEUT % 51 % (31-73); PLATELET COUNT 395 x10^3/uL (140-400); RED BLOOD COUNT 2.52 x10^6/uL (3.50-5.40); RED CELL DISTRIBUTION WIDTH 17.9 % (11.5-14.5); WHITE BLOOD COUNT 7.1 x10^3/uL (4.0-11.0)
[2020-05-11] MEDS: LACTOBACILLUS RHAMNOSUS GG 1 CAPSULE. PO SCH ×2 (09:00→20:47)
[2020-05-11] MEDS: VANCOMYCIN 125 MG/2.5 ML ORAL SOLUTION. PO SCH ×4 (09:00→20:47)
[2020-05-11] MEDS: MEROPENEM 1 GM in IV NORMAL SALINE 100ML 100 ML IV SCH ×2 (09:31→20:02)
--- NOTE | 2020-05-11 10:28 | PDOC ---
Infectious Disease Note Subjective Subjective A little uncomfortable but ok No F/c/S/N/V/d/SOA ROS ROS o/w neg Vital Sign Vital Signs Vital Signs Date Time Temp Pulse Resp B/P (MAP) Pulse Ox O2 Delivery O2 Flow Rate FiO2 05/11/20 07:00 97.8 72 18 99/56 (70) 96 Room Air 97.8 Physical Exam PHYSICAL EXAM GENERAL: The patient is in a chair and looks well. alert and smiling. HEENT: Scleral icterus. Oropharynx dry. No lesions seen. NECK: Supple. LUNGS: Clear to auscultation. HEART: S1 and S2. ABDOMEN: Distended, taut, bowel sounds present. Tender to deep palpation. No rebound. EXTREMITIES: No gross edema or cyanosis. SKIN: Warm to touch. No signs of rash. NEUROLOGIC: Alert and answering questions appropriately. Labs Lab Laboratory Tests Test 05/10/20 16:00 05/11/20 02:45 05/11/20 07:40 SARS-CoV-2 Antigen (Rapid) Negative (NEGATIVE) Sodium Level 136 mmol/L (136-145) Potassium Level 4.5 mmol/L (3.5-5.1) Chloride Level 101 mmol/L (98-107) Carbon Dioxide Level 22 mmol/L (21-32) Anion Gap 13 (6-14) Blood Urea Nitrogen 11 mg/dL (7-20) Creatinine 0.7 mg/dL (0.6-1.0) Estimated GFR (Cockcroft-Gault) 80.1 Glucose Level 100 mg/dL (70-99) Calcium Level 8.0 mg/dL (8.5-10.1) White Blood Count 7.1 x10^3/uL (4.0-11.0) Red Blood Count 2.52 x10^6/uL (3.50-5.40) Hemoglobin 7.7 g/dL (12.0-15.5) Hematocrit 22.5 % (36.0-47.0) Mean Corpuscular Volume 89 fL (79-100) Mean Corpuscular Hemoglobin 30 pg (25-35) Mean Corpuscular Hemoglobin Concent 34 g/dL (31-37) Red Cell Distribution Width 17.9 % (11.5-14.5) Platelet Count 395 x10^3/uL (140-400) Neutrophils (%) (Auto) 51 % (31-73) Lymphocytes (%) (Auto) 39 % (24-48) Monocytes (%) (Auto) 8 % (0-9) Eosinophils (%) (Auto) 2 % (0-3) Basophils (%) (Auto) 1 % (0-3) Neutrophils # (Auto) 3.6 x10^3/uL (1.8-7.7) Lymphocytes # (Auto) 2.8 x10^3/uL (1.0-4.8) Monocytes # (Auto) 0.5 x10^3/uL (0.0-1.1) Eosinophils # (Auto) 0.2 x10^3/uL (0.0-0.7) Basophils # (Auto) 0.1 x10^3/uL (0.0-0.2) Micro Ascitic fluid GRAM STAIN Final Final NO ORGANISMS SEEN. SQUAMOUS EPI CELL:NOT APPLICABLE PMN (WBCs):RARE Unless otherwise specified, Testing Performed by: [address] [address] For Inquires, the Physician may contact the Microbiology department at [phone] Microbiology 05/10/20 Gram Stain - Final, Resulted 05/10/20 Aerobic and Anaerobic Culture - Preliminary, Resulted 05/09/20 Blood Culture - Preliminary, Resulted NO GROWTH AFTER 1 DAY Objective Assessment 1. Fever - better. 2. Leukocytosis - better. 3. Abdominal pain.s/p Paracentesis 1900 ml out 364 WBC 4. Ascites. 5. Diarrhea. 6. Recent history of Clostridium difficile colitis on 04/14/2020. 7. Hyperbilirubinemia. 8. 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 She did not tolerate adjuvant chemotherapy. 9. Severe protein-calorie malnutrition. Plan Plan of Care Patient was stated on Zyvox and meropenem per primary 05/09 add po vancomycin with recent h/o C. difficile F/u MRCP - pending f/u blood cultures/paracentesis results Monitor labs/temp Maintain aspiration precautions D/w nursing JERRELL GOODSON MD May 11, 2020 10:28
--- NOTE | 2020-05-11 10:42 | PDOC ---
PROGRESS NOTES Date of Service DATE: 05/11/20 TIME: 10:39 Subjective Subjective still has ascites. walking with PT. abdominal ultrasound report reviewed. blood cultures negative. gram stain peritoneal fluid negative. 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 Suspected obstructive jaundice. 3. 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 paracentesisi 05/10/20 4. Anemia. 5. Hypokalemia 6. Severe protein-calorie malnutrition. 7. Fibromyalgia. 8. Hypotension low grade fever resolved abdominal pain hx of c,.diff Plan Plan of Care MRCP await peritoneal fluid cytology continue iv meropenem and zyvox and po vancomycin Comment Review of Relevant I have reviewed the following items betty (where applicable) has been applied. Labs Laboratory Tests Test 05/10/20 03:42 05/10/20 09:00 05/10/20 16:00 05/11/20 02:45 White Blood Count 8.4 x10^3/uL (4.0-11.0) Red Blood Count 2.45 x10^6/uL (3.50-5.40) Hemoglobin 7.4 g/dL (12.0-15.5) Hematocrit 21.7 % (36.0-47.0) Mean Corpuscular Volume 88 fL (79-100) Mean Corpuscular Hemoglobin 30 pg (25-35) Mean Corpuscular Hemoglobin Concent 34 g/dL (31-37) Red Cell Distribution Width 17.8 % (11.5-14.5) Platelet Count 352 x10^3/uL (140-400) Neutrophils (%) (Auto) 51 % (31-73) Lymphocytes (%) (Auto) 43 % (24-48) Monocytes (%) (Auto) 5 % (0-9) Eosinophils (%) (Auto) 1 % (0-3) Basophils (%) (Auto) 0 % (0-3) Neutrophils # (Auto) 4.3 x10^3/uL (1.8-7.7) Lymphocytes # (Auto) 3.6 x10^3/uL (1.0-4.8) Monocytes # (Auto) 0.4 x10^3/uL (0.0-1.1) Eosinophils # (Auto) 0.1 x10^3/uL (0.0-0.7) Basophils # (Auto) 0.0 x10^3/uL (0.0-0.2) Segmented Neutrophils % 78 % (35-66) Band Neutrophils % 2 % (0-9) Lymphocytes % 11 % (24-48) Atypical Lymphocytes % (Manual) 1 % (0-0) Monocytes % 5 % (0-10) Eosinophils % 1 % (0-5) Myelocytes % 2 % (0-0) Platelet Estimate Adequate (ADEQUATE) Anisocytosis Slight Prothrombin Time 16.3 SEC (11.7-14.0) Prothromb Time International Ratio 1.4 (0.8-1.1) Sodium Level 135 mmol/L (136-145) 136 mmol/L (136-145) Potassium Level 3.4 mmol/L (3.5-5.1) 4.5 mmol/L (3.5-5.1) Chloride Level 102 mmol/L (98-107) 101 mmol/L (98-107) Carbon Dioxide Level 25 mmol/L (21-32) 22 mmol/L (21-32) Anion Gap 8 (6-14) 13 (6-14) Blood Urea Nitrogen 12 mg/dL (7-20) 11 mg/dL (7-20) Creatinine 0.8 mg/dL (0.6-1.0) 0.7 mg/dL (0.6-1.0) Estimated GFR (Cockcroft-Gault) 68.7 80.1 BUN/Creatinine Ratio 15 (6-20) Glucose Level 111 mg/dL (70-99) 100 mg/dL (70-99) Calcium Level 7.8 mg/dL (8.5-10.1) 8.0 mg/dL (8.5-10.1) Total Bilirubin 8.6 mg/dL (0.2-1.0) Aspartate Amino Transf (AST/SGOT) 64 U/L (15-37) Alanine Aminotransferase (ALT/SGPT) 37 U/L (14-59) Alkaline Phosphatase 751 U/L (46-116) Total Protein 5.7 g/dL (6.4-8.2) Albumin 1.5 g/dL (3.4-5.0) Albumin/Globulin Ratio 0.4 (1.0-1.7) Body Fluid Source Peritoneal Body Fluid Color Yellow Body Fluid Clarity Clear Body Fluid Nucleated Cells 364 /cmm (Not Established) Body Fluid Mononuclear WBCs (%) 40 % Body Fluid Polymorphonuclear Cells 60 % Body Fluid Total RBCs Counted 350 /cmm (Not Established) SARS-CoV-2 Antigen (Rapid) Negative (NEGATIVE) Test 05/11/20 07:40 White Blood Count 7.1 x10^3/uL (4.0-11.0) Red Blood Count 2.52 x10^6/uL (3.50-5.40) Hemoglobin 7.7 g/dL (12.0-15.5) Hematocrit 22.5 % (36.0-47.0) Mean Corpuscular Volume 89 fL (79-100) Mean Corpuscular Hemoglobin 30 pg (25-35) Mean Corpuscular Hemoglobin Concent 34 g/dL (31-37) Red Cell Distribution Width 17.9 % (11.5-14.5) Platelet Count 395 x10^3/uL (140-400) Neutrophils (%) (Auto) 51 % (31-73) Lymphocytes (%) (Auto) 39 % (24-48) Monocytes (%) (Auto) 8 % (0-9) Eosinophils (%) (Auto) 2 % (0-3) Basophils (%) (Auto) 1 % (0-3) Neutrophils # (Auto) 3.6 x10^3/uL (1.8-7.7) Lymphocytes # (Auto) 2.8 x10^3/uL (1.0-4.8) Monocytes # (Auto) 0.5 x10^3/uL (0.0-1.1) Eosinophils # (Auto) 0.2 x10^3/uL (0.0-0.7) Basophils # (Auto) 0.1 x10^3/uL (0.0-0.2) Laboratory Tests Test 05/10/20 16:00 05/11/20 02:45 05/11/20 07:40 SARS-CoV-2 Antigen (Rapid) Negative (NEGATIVE) Sodium Level 136 mmol/L (136-145) Potassium Level 4.5 mmol/L (3.5-5.1) Chloride Level 101 mmol/L (98-107) Carbon Dioxide Level 22 mmol/L (21-32) Anion Gap 13 (6-14) Blood Urea Nitrogen 11 mg/dL (7-20) Creatinine 0.7 mg/dL (0.6-1.0) Estimated GFR (Cockcroft-Gault) 80.1 Glucose Level 100 mg/dL (70-99) Calcium Level 8.0 mg/dL (8.5-10.1) White Blood Count 7.1 x10^3/uL (4.0-11.0) Red Blood Count 2.52 x10^6/uL (3.50-5.40) Hemoglobin 7.7 g/dL (12.0-15.5) Hematocrit 22.5 % (36.0-47.0) Mean Corpuscular Volume 89 fL (79-100) Mean Corpuscular Hemoglobin 30 pg (25-35) Mean Corpuscular Hemoglobin Concent 34 g/dL (31-37) Red Cell Distribution Width 17.9 % (11.5-14.5) Platelet Count 395 x10^3/uL (140-400) Neutrophils (%) (Auto) 51 % (31-73) Lymphocytes (%) (Auto) 39 % (24-48) Monocytes (%) (Auto) 8 % (0-9) Eosinophils (%) (Auto) 2 % (0-3) Basophils (%) (Auto) 1 % (0-3) Neutrophils # (Auto) 3.6 x10^3/uL (1.8-7.7) Lymphocytes # (Auto) 2.8 x10^3/uL (1.0-4.8) Monocytes # (Auto) 0.5 x10^3/uL (0.0-1.1) Eosinophils # (Auto) 0.2 x10^3/uL (0.0-0.7) Basophils # (Auto) 0.1 x10^3/uL (0.0-0.2) Microbiology 05/10/20 Gram Stain - Final, Resulted 05/10/20 Aerobic and Anaerobic Culture - Preliminary, Resulted 05/09/20 Blood Culture - Preliminary, Resulted NO GROWTH AFTER 1 DAY Medications Current Medications Hydroxyzine HCl (Atarax) 10 mg PRN TID PRN PO ITCHING; Start 05/07/20 at 17:00 Sertraline HCl (Zoloft) 50 mg DAILY PO Last administered on 05/09/20at 08:44; Start 05/08/20 at 09:00; Stop 05/09/20 at 11:19; Status DC Amitriptyline HCl (Elavil) 50 mg QHS PO Last administered on 05/10/20at 20:37; Start 05/07/20 at 21:00 Acetaminophen (Tylenol) 325 mg PRN Q6HRS PRN PO MILD PAIN / TEMP > 100.3'F; Start 05/07/20 at 20:00 Iohexol (Omnipaque 300 Mg/ml) 75 ml 1X ONCE IV Last administered on 05/08/20at 13:30; Start 05/08/20 at 11:45; Stop 05/08/20 at 11:46; Status DC Info (CONTRAST GIVEN -- Rx MONITORING) 1 each PRN DAILY PRN MC SEE COMMENTS; Start 05/08/20 at 11:45; Stop 05/10/20 at 11:44; Status DC Tramadol HCl (Ultram) 50 mg TID PO Last administered on 05/09/20at 07:35; Start 05/08/20 at 14:00; Stop 05/09/20 at 11:15; Status DC Potassium Chloride (Klor-Con) 40 meq 1X ONCE PO Last administered on 05/08/20at 14:10; Start 05/08/20 at 12:15; Stop 05/08/20 at 12:16; Status DC Sodium Chloride 1,000 ml @ 60 mls/hr [id number] IV Last administered on 05/09/20at 07:36; Start 05/08/20 at 12:30; Stop 05/09/20 at 11:15; Status DC Amylase/Lipase/ Protease (Zenpep 5,000) 2 cap TIDWMEALS PO Last administered on 05/10/20 17:29; Start 05/08/20 at 13:00 Phytonadione (Vitamin K Ampule) 2 mg 1X ONCE SQ Last administered on 05/09/20at 11:34; Start 05/09/20 at 11:00; Stop 05/09/20 at 11:01; Status DC Meropenem 1 gm/ Sodium Chloride 100 ml @ 200 mls/hr Q12HR IV Last administered on 05/11/20at 09:31; Start 05/09/20 at 11:30 Linezolid/Dextrose 300 ml @ 300 mls/hr Q12HR IV Last administered on 05/11/20 09:29; Start 05/09/20 at 12:00 Acetaminophen/ Hydrocodone Bitart (Lortab 5/325) 1 tab PRN Q4HRS PRN PO MODERATE - SEVERE PAIN Last administered on 05/11/20at 02:50; Start 05/09/20 at 11:15 Vancomycin HCl (Vancomycin Oral Solution) 125 mg [id number] PO Last administered on 05/10/20at 20:36; Start 05/09/20 at 14:00 Lactobacillus Rhamnosus (Culturelle) 1 cap BID PO Last administered on 05/10/20at 20:36; Start 05/09/20 at 21:00 Lidocaine HCl (Buffered Lidocaine 1%) 3 ml STK-MED ONCE .ROUTE ; Start 05/10/20 at 08:09; Stop 05/10/20 at 08:09; Status DC Lidocaine HCl (Buffered Lidocaine 1%) 6 ml 1X ONCE INJ Last administered on 05/10/20at 08:15; Start 05/10/20 at 08:15; Stop 05/10/20 at 08:19; Status DC Lidocaine HCl (Buffered Lidocaine 1%) 3 ml 1X ONCE INJ ; Start 05/10/20 at 09:00; Stop 05/10/20 at 09:01; Status DC Potassium Chloride (Klor-Con) 20 meq 1X ONCE PO Last administered on 05/10/20at 10:29; Start 05/10/20 at 10:30; Stop 05/10/20 at 10:31; Status DC Active Scripts Active Tramadol Hcl 50 Mg Tablet 50 Mg PO TID Flagyl (Metronidazole) 500 Mg Tablet 500 Mg PO Q8HRS Cephalexin 250 Mg Capsule 500 Mg PO TID Zoloft (Sertraline Hcl) 50 Mg Tablet 50 Mg PO DAILY Reported Amitriptyline Hcl 50 Mg Tablet 50 Mg PO QHS Hydroxyzine Hcl 10 Mg Tablet 10 Mg PO PRN TID PRN Vitals/I & O Vital Sign - Last 24 Hours 05/10/20 05/10/20 05/10/20 05/10/20 11:00 15:00 19:00 19:30 Temp 98.3 98.6 98.6 98.3 98.6 98.6 Pulse 77 75 82 Resp 18 18 18 B/P (MAP) 98/57 (71) 98/57 (71) 109/61 (77) Pulse Ox 93 96 95 O2 Delivery Room Air Room Air Room Air Room Air 05/10/20 05/10/20 05/10/20 05/11/20 19:36 20:37 23:00 02:50 Temp 98.1 98.1 Pulse 78 Resp 18 B/P (MAP) 109/61 (77) Pulse Ox 96 O2 Delivery Room Air Nasal Cannula Room Air Room Air 05/11/20 05/11/20 05/11/20 03:00 04:03 07:00 Temp 98.0 97.8 98.0 97.8 Pulse 74 72 Resp 18 18 B/P (MAP) 104/64 (77) 99/56 (70) Pulse Ox 97 96 O2 Delivery Room Air Room Air Room Air Intake and Output 05/10/20 05/10/20 05/11/20 15:00 23:00 07:00 Intake Total 300 ml Output Total 1900 ml 1125 ml Balance -1900 ml 300 ml -1125 ml Justicifation of Admission Dx: Justifications for Admission: Justification of Admission Dx: Yes Nutrition Consultation Dietary Evaluation: Recommendations by RD: Dietary education by RD, Increase Calorie Intake, Protein supplementation Comments: diet education on low Na diet provided due to condition diet changed to low Na ( cardiac) due to ascites supplements added for extra kcal/ protein: ensure pudding and magic cup due to malnutrition appearance Expected Outcomes/Goals: to meet >75% est nutr needs Malnutrition Findings: Muscle Mass (Severe): Severe Depletion Weight Status: Underweight Fluid Accumulation (Severe): Severe SRINIVASA ABDULLAHI MD May 11, 2020 10:42
[2020-05-11 11:00] VITALS: BP 101/58
--- NOTE | 2020-05-11 12:45 | PDOC ---
Date of Service: DATE: 05/11/20 TIME: 12:43 Objective: Vital Signs: Vital Signs Date Time Temp Pulse Resp B/P (MAP) Pulse Ox O2 Delivery O2 Flow Rate FiO2 05/11/20 11:00 97.8 68 16 101/58 (72) 98 Room Air 97.8 Labs: Laboratory Tests Test 05/10/20 16:00 05/11/20 02:45 05/11/20 07:40 SARS-CoV-2 Antigen (Rapid) Negative Sodium Level 136 mmol/L Potassium Level 4.5 mmol/L Chloride Level 101 mmol/L Carbon Dioxide Level 22 mmol/L Anion Gap 13 Blood Urea Nitrogen 11 mg/dL Creatinine 0.7 mg/dL Estimated GFR (Cockcroft-Gault) 80.1 Glucose Level 100 mg/dL Calcium Level 8.0 mg/dL White Blood Count 7.1 x10^3/uL Red Blood Count 2.52 x10^6/uL Hemoglobin 7.7 g/dL Hematocrit 22.5 % Mean Corpuscular Volume 89 fL Mean Corpuscular Hemoglobin 30 pg Mean Corpuscular Hemoglobin Concent 34 g/dL Red Cell Distribution Width 17.9 % Platelet Count 395 x10^3/uL Neutrophils (%) (Auto) 51 % Lymphocytes (%) (Auto) 39 % Monocytes (%) (Auto) 8 % Eosinophils (%) (Auto) 2 % Basophils (%) (Auto) 1 % Neutrophils # (Auto) 3.6 x10^3/uL Lymphocytes # (Auto) 2.8 x10^3/uL Monocytes # (Auto) 0.5 x10^3/uL Eosinophils # (Auto) 0.2 x10^3/uL Basophils # (Auto) 0.1 x10^3/uL ORDERED: ANAER/AEROB/GS COMMENTS: ABDOMINAL FLUID Has specimen been collected/obtained? Y Procedure Result GRAM STAIN Final Final NO ORGANISMS SEEN. SQUAMOUS EPI CELL:NOT APPLICABLE PMN (WBCs):RARE Unless otherwise specified, Testing Performed by: [address] [id number] For Inquires, the Physician may contact the Microbiology department at [phone] ANAEROBIC-AEROBIC CULTURE Preliminary Preliminary No Growth on 05/11/20 at 0931 Unless otherwise specified, Testing Performed by: [address] [id number] For Inquires, the Physician may contact the Microbiology department at [phone] Imaging: Abd US IMPRESSION: 1. Pneumobilia. Moderate intrahepatic biliary dilatation. The common duct does not appear clearly dilated at [address] could provide better assessment of the biliary anatomy than MRCP given pneumobilia if there is persistent concern. 2. Moderate perihepatic ascites. Mild splenomegaly. 3. 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 MRCP pending PE: out of room A/P: H/o cholangiocarcinoma s/p Whipple, ascites s/p paracentesis, jaundice COVID negative -- Awaiting MRCP. Justicifation of Admission Dx: Justifications for Admission: Justification of Admission Dx: Yes CORI PEDERSEN May 11, 2020 12:45
[2020-05-11 15:00] VITALS: BP 113/62
--- NOTE | 2020-05-11 16:01 | PDOC ---
PROGRESS NOTES Date of Service DATE: 05/11/20 TIME: 15:57 Subjective Subjective Natalya was seen in follow-up today. No new complaints. Awaiting MRCAP results. Denies fever, chills, SOA. Abdominal pain is better after paracentesis yesterday. Objective Objective Vital Signs Date Time Temp Pulse Resp B/P (MAP) Pulse Ox O2 Delivery O2 Flow Rate FiO2 05/11/20 15:00 98.6 78 18 113/62 (79) 96 Room Air 98.6 Intake and Output 05/11/20 07:00 Intake Total 300 ml Output Total 3025 ml Balance -2725 ml Intake Oral 300 ml Output Urine Total 1125 ml Drainage Total 1900 ml Physical Exam Abdomen: Other (Ascites is improved compared to last visit) Heart: Regular rate Extremities: No clubbing General: Alert, Oriented X3, Other (Icterus noted) HEENT: Atraumatic Lungs: Clear to auscultation Neck: Supple, No JVD Neuro: Normal speech Skin: No rashes Assessment Assessment Obstructive jaundice Ascites s/p paracentesis on 05/10. Awaiting cytology Hx of extrahepatic cholangiocarcinoma s/p whipple resection in 2019 Weight loss Normocytic anemia Elevated INR, likely from hepatic dysfunction vs vitamin k deficiency Plan Plan of Care -Awaiting results of MRCP. Appreciate GI recs -Will follow-up cytology from paracentesis - Consider hepatobiliary input reg management of obstructive jaundice - Consider percutanous vs endoscopic intervention for obstructive jaundice per GI/IR/surgery Dell Ram MD Medical Oncology Comment Review of Relevant I have reviewed the following items betty (where applicable) has been applied. Labs Laboratory Tests Test 05/10/20 03:42 05/10/20 09:00 05/10/20 16:00 05/11/20 02:45 White Blood Count 8.4 x10^3/uL (4.0-11.0) Red Blood Count 2.45 x10^6/uL (3.50-5.40) Hemoglobin 7.4 g/dL (12.0-15.5) Hematocrit 21.7 % (36.0-47.0) Mean Corpuscular Volume 88 fL (79-100) Mean Corpuscular Hemoglobin 30 pg (25-35) Mean Corpuscular Hemoglobin Concent 34 g/dL (31-37) Red Cell Distribution Width 17.8 % (11.5-14.5) Platelet Count 352 x10^3/uL (140-400) Neutrophils (%) (Auto) 51 % (31-73) Lymphocytes (%) (Auto) 43 % (24-48) Monocytes (%) (Auto) 5 % (0-9) Eosinophils (%) (Auto) 1 % (0-3) Basophils (%) (Auto) 0 % (0-3) Neutrophils # (Auto) 4.3 x10^3/uL (1.8-7.7) Lymphocytes # (Auto) 3.6 x10^3/uL (1.0-4.8) Monocytes # (Auto) 0.4 x10^3/uL (0.0-1.1) Eosinophils # (Auto) 0.1 x10^3/uL (0.0-0.7) Basophils # (Auto) 0.0 x10^3/uL (0.0-0.2) Segmented Neutrophils % 78 % (35-66) Band Neutrophils % 2 % (0-9) Lymphocytes % 11 % (24-48) Atypical Lymphocytes % (Manual) 1 % (0-0) Monocytes % 5 % (0-10) Eosinophils % 1 % (0-5) Myelocytes % 2 % (0-0) Platelet Estimate Adequate (ADEQUATE) Anisocytosis Slight Prothrombin Time 16.3 SEC (11.7-14.0) Prothromb Time International Ratio 1.4 (0.8-1.1) Sodium Level 135 mmol/L (136-145) 136 mmol/L (136-145) Potassium Level 3.4 mmol/L (3.5-5.1) 4.5 mmol/L (3.5-5.1) Chloride Level 102 mmol/L (98-107) 101 mmol/L (98-107) Carbon Dioxide Level 25 mmol/L (21-32) 22 mmol/L (21-32) Anion Gap 8 (6-14) 13 (6-14) Blood Urea Nitrogen 12 mg/dL (7-20) 11 mg/dL (7-20) Creatinine 0.8 mg/dL (0.6-1.0) 0.7 mg/dL (0.6-1.0) Estimated GFR (Cockcroft-Gault) 68.7 80.1 BUN/Creatinine Ratio 15 (6-20) Glucose Level 111 mg/dL (70-99) 100 mg/dL (70-99) Calcium Level 7.8 mg/dL (8.5-10.1) 8.0 mg/dL (8.5-10.1) Total Bilirubin 8.6 mg/dL (0.2-1.0) Aspartate Amino Transf (AST/SGOT) 64 U/L (15-37) Alanine Aminotransferase (ALT/SGPT) 37 U/L (14-59) Alkaline Phosphatase 751 U/L (46-116) Total Protein 5.7 g/dL (6.4-8.2) Albumin 1.5 g/dL (3.4-5.0) Albumin/Globulin Ratio 0.4 (1.0-1.7) Body Fluid Source Peritoneal Body Fluid Color Yellow Body Fluid Clarity Clear Body Fluid Nucleated Cells 364 /cmm (Not Established) Body Fluid Mononuclear WBCs (%) 40 % Body Fluid Polymorphonuclear Cells 60 % Body Fluid Total RBCs Counted 350 /cmm (Not Established) SARS-CoV-2 Antigen (Rapid) Negative (NEGATIVE) Test 05/11/20 07:40 White Blood Count 7.1 x10^3/uL (4.0-11.0) Red Blood Count 2.52 x10^6/uL (3.50-5.40) Hemoglobin 7.7 g/dL (12.0-15.5) Hematocrit 22.5 % (36.0-47.0) Mean Corpuscular Volume 89 fL (79-100) Mean Corpuscular Hemoglobin 30 pg (25-35) Mean Corpuscular Hemoglobin Concent 34 g/dL (31-37) Red Cell Distribution Width 17.9 % (11.5-14.5) Platelet Count 395 x10^3/uL (140-400) Neutrophils (%) (Auto) 51 % (31-73) Lymphocytes (%) (Auto) 39 % (24-48) Monocytes (%) (Auto) 8 % (0-9) Eosinophils (%) (Auto) 2 % (0-3) Basophils (%) (Auto) 1 % (0-3) Neutrophils # (Auto) 3.6 x10^3/uL (1.8-7.7) Lymphocytes # (Auto) 2.8 x10^3/uL (1.0-4.8) Monocytes # (Auto) 0.5 x10^3/uL (0.0-1.1) Eosinophils # (Auto) 0.2 x10^3/uL (0.0-0.7) Basophils # (Auto) 0.1 x10^3/uL (0.0-0.2) Laboratory Tests Test 05/10/20 16:00 05/11/20 02:45 05/11/20 07:40 SARS-CoV-2 Antigen (Rapid) Negative (NEGATIVE) Sodium Level 136 mmol/L (136-145) Potassium Level 4.5 mmol/L (3.5-5.1) Chloride Level 101 mmol/L (98-107) Carbon Dioxide Level 22 mmol/L (21-32) Anion Gap 13 (6-14) Blood Urea Nitrogen 11 mg/dL (7-20) Creatinine 0.7 mg/dL (0.6-1.0) Estimated GFR (Cockcroft-Gault) 80.1 Glucose Level 100 mg/dL (70-99) Calcium Level 8.0 mg/dL (8.5-10.1) White Blood Count 7.1 x10^3/uL (4.0-11.0) Red Blood Count 2.52 x10^6/uL (3.50-5.40) Hemoglobin 7.7 g/dL (12.0-15.5) Hematocrit 22.5 % (36.0-47.0) Mean Corpuscular Volume 89 fL (79-100) Mean Corpuscular Hemoglobin 30 pg (25-35) Mean Corpuscular Hemoglobin Concent 34 g/dL (31-37) Red Cell Distribution Width 17.9 % (11.5-14.5) Platelet Count 395 x10^3/uL (140-400) Neutrophils (%) (Auto) 51 % (31-73) Lymphocytes (%) (Auto) 39 % (24-48) Monocytes (%) (Auto) 8 % (0-9) Eosinophils (%) (Auto) 2 % (0-3) Basophils (%) (Auto) 1 % (0-3) Neutrophils # (Auto) 3.6 x10^3/uL (1.8-7.7) Lymphocytes # (Auto) 2.8 x10^3/uL (1.0-4.8) Monocytes # (Auto) 0.5 x10^3/uL (0.0-1.1) Eosinophils # (Auto) 0.2 x10^3/uL (0.0-0.7) Basophils # (Auto) 0.1 x10^3/uL (0.0-0.2) Microbiology 05/10/20 Gram Stain - Final, Resulted 05/10/20 Aerobic and Anaerobic Culture - Preliminary, Resulted 05/09/20 Blood Culture - Preliminary, Resulted NO GROWTH AFTER 2 DAYS Medications Current Medications Hydroxyzine HCl (Atarax) 10 mg PRN TID PRN PO ITCHING; Start 05/07/20 at 17:00 Sertraline HCl (Zoloft) 50 mg DAILY PO Last administered on 05/09/20at 08:44; Start 05/08/20 at 09:00; Stop 05/09/20 at 11:19; Status DC Amitriptyline HCl (Elavil) 50 mg QHS PO Last administered on 05/10/20at 20:37; Start 05/07/20 at 21:00 Acetaminophen (Tylenol) 325 mg PRN Q6HRS PRN PO MILD PAIN / TEMP > 100.3'F; Start 05/07/20 at 20:00 Iohexol (Omnipaque 300 Mg/ml) 75 ml 1X ONCE IV Last administered on 05/08/20at 13:30; Start 05/08/20 at 11:45; Stop 05/08/20 at 11:46; Status DC Info (CONTRAST GIVEN -- Rx MONITORING) 1 each PRN DAILY PRN MC SEE COMMENTS; Start 05/08/20 at 11:45; Stop 05/10/20 at 11:44; Status DC Tramadol HCl (Ultram) 50 mg TID PO Last administered on 05/09/20at 07:35; Start 05/08/20 at 14:00; Stop 05/09/20 at 11:15; Status DC Potassium Chloride (Klor-Con) 40 meq 1X ONCE PO Last administered on 05/08/20at 14:10; Start 05/08/20 at 12:15; Stop 05/08/20 at 12:16; Status DC Sodium Chloride 1,000 ml @ 60 mls/hr [id number] IV Last administered on 05/09/20at 07:36; Start 05/08/20 at 12:30; Stop 05/09/20 at 11:15; Status DC Amylase/Lipase/ Protease (Zenpep 5,000) 2 cap TIDWMEALS PO Last administered on 05/10/20at 17:29; Start 05/08/20 at 13:00 Phytonadione (Vitamin K Ampule) 2 mg 1X ONCE SQ Last administered on 05/09/20at 11:34; Start 05/09/20 at 11:00; Stop 05/09/20 at 11:01; Status DC Meropenem 1 gm/ Sodium Chloride 100 ml @ 200 mls/hr Q12HR IV Last administered on 05/11/20at 09:31; Start 05/09/20 at 11:30 Linezolid/Dextrose 300 ml @ 300 mls/hr Q12HR IV Last administered on 05/11/20at 09:29; Start 05/09/20 at 12:00 Acetaminophen/ Hydrocodone Bitart (Lortab 5/325) 1 tab PRN Q4HRS PRN PO MODERATE - SEVERE PAIN Last administered on 05/11/20at 02:50; Start 05/09/20 at 11:15 Vancomycin HCl (Vancomycin Oral Solution) 125 mg [id number] PO Last administered on 05/10/20at 20:36; Start 05/09/20 at 14:00 Lactobacillus Rhamnosus (Culturelle) 1 cap BID PO Last administered on 05/10/20at 20:36; Start 05/09/20 at 21:00 Lidocaine HCl (Buffered Lidocaine 1%) 3 ml STK-MED ONCE .ROUTE ; Start 05/10/20 at 08:09; Stop 05/10/20 at 08:09; Status DC Lidocaine HCl (Buffered Lidocaine 1%) 6 ml 1X ONCE INJ Last administered on 05/10/20at 08:15; Start 05/10/20 at 08:15; Stop 05/10/20 at 08:19; Status DC Lidocaine HCl (Buffered Lidocaine 1%) 3 ml 1X ONCE INJ ; Start 05/10/20 at 09:00; Stop 05/10/20 at 09:01; Status DC Potassium Chloride (Klor-Con) 20 meq 1X ONCE PO Last administered on 05/10/20at 10:29; Start 05/10/20 at 10:30; Stop 05/10/20 at 10:31; Status DC Levofloxacin/ Dextrose 100 ml @ 100 mls/hr 1X ONCE IV ; Start 05/12/20 at 09:00; Stop 05/12/20 at 09:59 Active Scripts Active Tramadol Hcl 50 Mg Tablet 50 Mg PO TID Flagyl (Metronidazole) 500 Mg Tablet 500 Mg PO Q8HRS Cephalexin 250 Mg Capsule 500 Mg PO TID Zoloft (Sertraline Hcl) 50 Mg Tablet 50 Mg PO DAILY Reported Amitriptyline Hcl 50 Mg Tablet 50 Mg PO QHS Hydroxyzine Hcl 10 Mg Tablet 10 Mg PO PRN TID PRN Vitals/I & O Vital Sign - Last 24 Hours 05/10/20 05/10/20 05/10/20 05/10/20 19:00 19:30 19:36 20:37 Temp 98.6 98.6 Pulse 82 Resp 18 B/P (MAP) 109/61 (77) Pulse Ox 95 O2 Delivery Room Air Room Air Room Air Nasal Cannula 05/10/20 05/11/20 05/11/20 05/11/20 23:00 02:50 03:00 04:03 Temp 98.1 98.0 98.1 98.0 Pulse 78 74 Resp 18 18 B/P (MAP) 109/61 (77) 104/64 (77) Pulse Ox 96 97 O2 Delivery Room Air Room Air Room Air Room Air 05/11/20 05/11/20 05/11/20 05/11/20 07:00 08:30 11:00 15:00 Temp 97.8 97.8 98.6 97.8 97.8 98.6 Pulse 72 68 78 Resp 18 16 18 B/P (MAP) 99/56 (70) 101/58 (72) 113/62 (79) Pulse Ox 96 98 96 O2 Delivery Room Air Room Air Room Air Room Air Intake and Output 05/10/20 05/10/20 05/11/20 15:00 23:00 07:00 Intake Total 300 ml Output Total 1900 ml 1125 ml Balance -1900 ml 300 ml -1125 ml Justicifation of Admission Dx: Justifications for Admission: Justification of Admission Dx: Yes Nutrition Consultation Dietary Evaluation: Recommendations by RD: Dietary education by RD, Increase Calorie Intake, Protein supplementation Comments: diet education on low Na diet provided due to condition diet changed to low Na ( cardiac) due to ascites supplements added for extra kcal/ protein: ensure pudding and magic cup due to malnutrition appearance Expected Outcomes/Goals: to meet >75% est nutr needs Malnutrition Findings: Muscle Mass (Severe): Severe Depletion Weight Status: Underweight Fluid Accumulation (Severe): Severe RIP RAM MD May 11, 2020 16:01
--- NOTE | 2020-05-11 16:24 | RAD ---
EXAM: MRI ABDOMEN WITHOUT CONTRAST. HISTORY: Jaundice, pancreatic cancer status post pylorus sparing Whipple procedure. TECHNIQUE: MRI of the abdomen was performed without intravenous contrast. Three-dimensional reconstructions of the biliary tree were also performed. COMPARISON: 05/08/2020. FINDINGS: Liver: There is no significant steatosis. There are no suspicious hepatic lesions without contrast. Biliary tree: The gallbladder and pancreatic head are surgically absent. A hepaticojejunostomy is noted. There is a relatively severe stricture at the confluence of ducts within 1 cm of the hepaticojejunostomy. The left hepatic duct is dilated to 11 mm. The right measures 7 mm. Intrahepatic biliary dilatation is moderate. Pneumobilia on the left greater than right is better appreciated on CT. The remaining portion of the pancreatic duct is dilated and irregular. The remaining pancreatic parenchyma is atrophic. The distal pancreatic duct measures up to 11 mm. No clear surrounding mass is appreciated within the resection bed Other findings: There is moderate ascites. The spleen is mildly enlarged at 14 cm. The kidneys and adrenal glands are unremarkable. IMPRESSION: 1. 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 A postprocedural stricture is favored over tumor recurrence at this location. ERCP could further evaluate if there is persistent concern. 2. Dilated irregular pancreatic duct upstream from the pancreatic resection margin with pancreatic parenchymal atrophy. 3. Moderate ascites. Correlate for peritoneal metastatic disease. Electronically signed by: Luc Castillo MD (05/11/2020 4:21 PM) [id number]
--- NOTE | 2020-05-11 18:06 | PATHOLOGY ---
Note [facility] Accession Number: [id number] TESTS RESULT FLAG UNITS REF RANGE LAB Clinician Provided Cytology Information No. of containers..01 Other (Miscellaneous) Source: 01 ASCITES DIAGNOSIS: 02 ASCITES NEGATIVE FOR MALIGNANT CELLS. FEW MESOTHELIAL CELLS IDENTIFIED WITHIN A BACKGROUND OF ACUTE AND CHRONIC INFLAMMATORY CELLS. THIS INTERPRETATION INCLUDES EVALUATION OF A CELL BLOCK. Signed out by: 02 Kane Carranza MD, Pathologist NPI- [id number] Performed by: Sanjana Dubois, Nanny Caregiver ([facility]) Gross description: 01 35ML, CLR BRT YELLOW, 1 TP 1 YOLANDE /TESSA 05/10/2020 1616 Local FLAG LEGEND: L-Low Normal,H-High Normal,LL-Alert Low,HH-Alert High <-Panic Low,>-Panic High,A-Abnormal,AA-Critical Abnormal Performed at: [facility] [address] [place] [address] Dani Guerrero MD, [address] [address] [address] Kane Carranza MD, Performed at: [address], [place], [place] [id number] MD Dani Guerrero MD Phone: [phone]
[2020-05-11 19:00] VITALS: BP 111/68
[2020-05-11] MEDS: AMITRIPTYLINE HCL 25 MG TABLET. PO SCH (20:47)
[2020-05-11 23:00] VITALS: BP 113/71
[2020-05-12 07:00] VITALS: BP 113/72
[2020-05-12] MEDS ORDERED: IV RINGERS,LACTATED 1000ML 1,000 ML IV SCH (07:00)
[2020-05-12] MEDS ORDERED: PROCHLORPERAZINE 10 MG/2 ML VIAL. IV PRN (07:00)
[2020-05-12] MEDS ORDERED: IV RINGERS,LACTATED 1000ML 1,000 ML IV ONE (07:30)
[2020-05-12] MEDS: LACTOBACILLUS RHAMNOSUS GG 1 CAPSULE. PO SCH ×2 (09:00→21:11)
[2020-05-12] MEDS: VANCOMYCIN 125 MG/2.5 ML ORAL SOLUTION. PO SCH ×4 (09:00→21:09)
[2020-05-12] MEDS ORDERED: IOHEXOL 300 MG/ML 100ML VIAL. ONE (09:24)
[2020-05-12] MEDS ORDERED: PROPOFOL 10 MG/ML (20ML) VIAL. IV ONE (10:12)
--- NOTE | 2020-05-12 10:45 | PDOC ---
PROGRESS NOTES Date of Service DATE: 05/12/20 TIME: 10:40 Subjective Subjective aseen during her ERCP. MRCP showed a biliary stricture. discussed with dr. ching who is attempting to find biliary drainage orifice to dilate biliary stricture Objective Objective Vital Signs Date Time Temp Pulse Resp B/P (MAP) Pulse Ox O2 Delivery O2 Flow Rate FiO2 05/12/20 09:37 97.7 77 18 96 97.7 05/12/20 09:34 Room Air 05/12/20 07:00 113/72 (86) Intake and Output 05/12/20 07:00 Intake Total 200 ml Balance 200 ml Intake Oral 200 ml # Voids 6 # Bowel Movements 1 Physical Exam Heart: Regular rate, Normal S1, Normal S2 Extremities: No edema General: Other (sedated) HEENT: Atraumatic Lungs: Clear to auscultation Neuro: Other (sedated) Psych/Mental Status: Other (sedated) Skin: No rashes Assessment Assessment ssessment 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 Suspected obstructive jaundice.due to bile duct stricture 3. 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 paracentesisi 05/10/20 4. Anemia. 5. Hypokalemia treated 6. Severe protein-calorie malnutrition. 7. Fibromyalgia. 8. Hypotension treated low grade fever resolved abdominal pain hx of c,.diff Plan Plan of Care ERCP today continue iv zyvox and meropenem and oral vancomycin lab tomorrow Comment Review of Relevant I have reviewed the following items betty (where applicable) has been applied. Labs Laboratory Tests Test 05/10/20 16:00 05/11/20 02:45 05/11/20 07:40 Coronavirus (PCR) Not detected (Not Detected) SARS-CoV-2 Antigen (Rapid) Negative (NEGATIVE) Sodium Level 136 mmol/L (136-145) Potassium Level 4.5 mmol/L (3.5-5.1) Chloride Level 101 mmol/L (98-107) Carbon Dioxide Level 22 mmol/L (21-32) Anion Gap 13 (6-14) Blood Urea Nitrogen 11 mg/dL (7-20) Creatinine 0.7 mg/dL (0.6-1.0) Estimated GFR (Cockcroft-Gault) 80.1 Glucose Level 100 mg/dL (70-99) Calcium Level 8.0 mg/dL (8.5-10.1) White Blood Count 7.1 x10^3/uL (4.0-11.0) Red Blood Count 2.52 x10^6/uL (3.50-5.40) Hemoglobin 7.7 g/dL (12.0-15.5) Hematocrit 22.5 % (36.0-47.0) Mean Corpuscular Volume 89 fL (79-100) Mean Corpuscular Hemoglobin 30 pg (25-35) Mean Corpuscular Hemoglobin Concent 34 g/dL (31-37) Red Cell Distribution Width 17.9 % (11.5-14.5) Platelet Count 395 x10^3/uL (140-400) Neutrophils (%) (Auto) 51 % (31-73) Lymphocytes (%) (Auto) 39 % (24-48) Monocytes (%) (Auto) 8 % (0-9) Eosinophils (%) (Auto) 2 % (0-3) Basophils (%) (Auto) 1 % (0-3) Neutrophils # (Auto) 3.6 x10^3/uL (1.8-7.7) Lymphocytes # (Auto) 2.8 x10^3/uL (1.0-4.8) Monocytes # (Auto) 0.5 x10^3/uL (0.0-1.1) Eosinophils # (Auto) 0.2 x10^3/uL (0.0-0.7) Basophils # (Auto) 0.1 x10^3/uL (0.0-0.2) Microbiology 05/10/20 Gram Stain - Final, Resulted 05/10/20 Aerobic and Anaerobic Culture - Preliminary, Resulted 05/09/20 Blood Culture - Preliminary, Resulted NO GROWTH AFTER 2 DAYS Medications Current Medications Hydroxyzine HCl (Atarax) 10 mg PRN TID PRN PO ITCHING; Start 05/07/20 at 17:00 Sertraline HCl (Zoloft) 50 mg DAILY PO Last administered on 05/09/20at 08:44; Start 05/08/20 at 09:00; Stop 05/09/20 at 11:19; Status DC Amitriptyline HCl (Elavil) 50 mg QHS PO Last administered on 05/11/20at 20:47; Start 05/07/20 at 21:00 Acetaminophen (Tylenol) 325 mg PRN Q6HRS PRN PO MILD PAIN / TEMP > 100.3'F; Start 05/07/20 at 20:00 Iohexol (Omnipaque 300 Mg/ml) 75 ml 1X ONCE IV Last administered on 05/08/20at 13:30; Start 05/08/20 at 11:45; Stop 05/08/20 at 11:46; Status DC Info (CONTRAST GIVEN -- Rx MONITORING) 1 each PRN DAILY PRN MC SEE COMMENTS; Start 05/08/20 at 11:45; Stop 05/10/20 at 11:44; Status DC Tramadol HCl (Ultram) 50 mg TID PO Last administered on 05/09/20at 07:35; Start 05/08/20 at 14:00; Stop 05/09/20 at 11:15; Status DC Potassium Chloride (Klor-Con) 40 meq 1X ONCE PO Last administered on 05/08/20at 14:10; Start 05/08/20 at 12:15; Stop 05/08/20 at 12:16; Status DC Sodium Chloride 1,000 ml @ 60 mls/hr [id number] IV Last administered on 05/09/20at 07:36; Start 05/08/20 at 12:30; Stop 05/09/20 at 11:15; Status DC Amylase/Lipase/ Protease (Zenpep 5,000) 2 cap TIDWMEALS PO Last administered on 05/11/20at 16:59; Start 05/08/20 at 13:00 Phytonadione (Vitamin K Ampule) 2 mg 1X ONCE SQ Last administered on 05/09/20at 11:34; Start 05/09/20 at 11:00; Stop 05/09/20 at 11:01; Status DC Meropenem 1 gm/ Sodium Chloride 100 ml @ 200 mls/hr Q12HR IV Last administered on 05/11/20at 20:02; Start 05/09/20 at 11:30 Linezolid/Dextrose 300 ml @ 300 mls/hr Q12HR IV Last administered on 05/11/20at 22:04; Start 05/09/20 at 12:00 Acetaminophen/ Hydrocodone Bitart (Lortab 5/325) 1 tab PRN Q4HRS PRN PO MODERATE - SEVERE PAIN Last administered on 05/11/20at 23:54; Start 05/09/20 at 11:15 Vancomycin HCl (Vancomycin Oral Solution) 125 mg [id number] PO Last administered on 05/11/20at 20:47; Start 05/09/20 at 14:00 Lactobacillus Rhamnosus (Culturelle) 1 cap BID PO Last administered on 05/11/20 at 20:47; Start 05/09/20 at 21:00 Lidocaine HCl (Buffered Lidocaine 1%) 3 ml STK-MED ONCE .ROUTE ; Start 05/10/20 at 08:09; Stop 05/10/20 at 08:09; Status DC Lidocaine HCl (Buffered Lidocaine 1%) 6 ml 1X ONCE INJ Last administered on 05/10/20at 08:15; Start 05/10/20 at 08:15; Stop 05/10/20 at 08:19; Status DC Lidocaine HCl (Buffered Lidocaine 1%) 3 ml 1X ONCE INJ ; Start 05/10/20 at 09:00; Stop 05/10/20 at 09:01; Status DC Potassium Chloride (Klor-Con) 20 meq 1X ONCE PO Last administered on 05/10/20at 10:29; Start 05/10/20 at 10:30; Stop 05/10/20 at 10:31; Status DC Levofloxacin/ Dextrose 100 ml @ 100 mls/hr 1X ONCE IV ; Start 05/12/20 at 09:00; Stop 05/12/20 at 09:59; Status DC Ringer's Solution 1,000 ml @ 30 mls/hr Q24H IV Last administered on 05/12/20at 09:39; Start 05/12/20 at 07:00; Stop 05/12/20 at 18:59 Prochlorperazine Edisylate (Compazine) 5 mg PACU PRN PRN IV NAUSEA, MRX1; Start 05/12/20 at 07:00; Stop 05/13/20 at 06:59 Ringer's Solution 1,000 ml @ 75 mls/hr 1X ONCE IV ; Start 05/12/20 at 07:30; Stop 05/12/20 at 20:49 Iohexol (Omnipaque 300 Mg/ml) 100 ml STK-MED ONCE .ROUTE ; Start 05/12/20 at 09:24; Stop 05/12/20 at 09:24; Status DC Propofol (Diprivan) 200 mg STK-MED ONCE IV ; Start 05/12/20 at 10:12; Stop 05/12/20 at 10:12; Status DC Active Scripts Active Tramadol Hcl 50 Mg Tablet 50 Mg PO TID Flagyl (Metronidazole) 500 Mg Tablet 500 Mg PO Q8HRS Cephalexin 250 Mg Capsule 500 Mg PO TID Zoloft (Sertraline Hcl) 50 Mg Tablet 50 Mg PO DAILY Reported Amitriptyline Hcl 50 Mg Tablet 50 Mg PO QHS Hydroxyzine Hcl 10 Mg Tablet 10 Mg PO PRN TID PRN Vitals/I & O Vital Sign - Last 24 Hours 05/11/20 05/11/20 05/11/20 05/11/20 11:00 15:00 19:00 19:50 Temp 97.8 98.6 98.1 97.8 98.6 98.1 Pulse 68 78 93 Resp 16 18 16 B/P (MAP) 101/58 (72) 113/62 (79) 111/68 (82) Pulse Ox 98 96 96 O2 Delivery Room Air Room Air Room Air Room Air 05/11/20 05/11/20 05/12/20 05/12/20 23:00 23:54 00:54 07:00 Temp 98.4 98.6 98.4 98.6 Pulse 78 68 Resp 20 20 18 B/P (MAP) 113/71 (85) 113/72 (86) Pulse Ox 95 95 O2 Delivery Room Air Room Air Room Air 05/12/20 05/12/20 05/12/20 07:10 09:34 09:37 Temp 97.7 97.7 Pulse 77 Resp 18 Pulse Ox 96 O2 Delivery Room Air Room Air Intake and Output 05/11/20 05/11/20 05/12/20 15:00 23:00 07:00 Intake Total 200 ml 0 ml Balance 200 ml 0 ml Justicifation of Admission Dx: Justifications for Admission: Justification of Admission Dx: Yes Nutrition Consultation Dietary Evaluation: Recommendations by RD: Dietary education by RD, Increase Calorie Intake, Protein supplementation Comments: diet education on low Na diet provided due to condition diet changed to low Na ( cardiac) due to ascites supplements added for extra kcal/ protein: ensure pudding and magic cup due to malnutrition appearance Expected Outcomes/Goals: to meet >75% est nutr needs Malnutrition Findings: Muscle Mass (Severe): Severe Depletion Weight Status: Underweight Fluid Accumulation (Severe): Severe SRINIVASA ABDULLAHI MD May 12, 2020 10:45
--- NOTE | 2020-05-12 10:58 | PDOC4 ---
PROCEDURE Procedure EGD (anticipated ERCP) Indication: jaundice post-pyloric sparing Whipple for cholangiocarcinoma, anastomotic stricture suspect. Meds: GETA Findings: E--grade a reflux distally. G--Normal. Pancreatogastrostomy not identified clearly. D--Well into neoduodenum. Mucosa normal. Proximal to stomach tortuous and angulated. Unable to clearly visualize the biliary anastomosis. Several blind pokes with cannula into suspect area unsuccessful. Elza. well. IMP: Mild reflux esophagitis. Unfavorable anatomy. REC: Will discuss with IR whether they can do anything. Continue other. SRINIVASA OTERO MD May 12, 2020 10:58
[2020-05-12] MEDS: HYDROcodone/APAP 5/325MG 1 TAB TABLET PO PRN ×2 (11:44→23:55)
--- NOTE | 2020-05-12 12:00 | NUR ---
Dr dion haddad re: Nausea and IV pain meds.
--- NOTE | 2020-05-12 12:04 | NUR ---
Pt. calm and sitting on bedside. Pt's at bedside, anxious re: pt's pain and nausea stating he is going to call dr. Perez himself. Pt's notified has already been paged and that pt has already received a pain pill.
[2020-05-12] MEDS: MEROPENEM 1 GM in IV NORMAL SALINE 100ML 100 ML IV SCH ×2 (13:20→20:03)
[2020-05-12] MEDS: MORPHINE SULFATE 2 MG/ML VIAL. IV PRN (13:24)
[2020-05-12] MEDS: ONDANSETRON PF 4 MG/2 ML VIAL. IVP PRN (13:25)
--- NOTE | 2020-05-12 13:44 | PDOC ---
PROGRESS NOTES Date of Service DATE: 05/12/20 TIME: 13:37 Subjective Subjective Natalya was seen in a follow-up visit. She had just returned from ERCP. She informs me that this was not successful. She reports abdominal pain following the procedure. She reports that she was not able to sleep well last night due to pain in her legs. Her was at bedside today.She denies fever, chills, chest pain, nausea, vomiting Objective Objective Vital Signs Date Time Temp Pulse Resp B/P (MAP) Pulse Ox O2 Delivery O2 Flow Rate FiO2 05/12/20 13:24 Room Air 05/12/20 11:19 85 20 112/60 94 05/12/20 11:04 98.2 98.2 Intake and Output 05/12/20 07:00 Intake Total 200 ml Balance 200 ml Intake Oral 200 ml # Voids 6 # Bowel Movements 1 Physical Exam Abdomen: Normal bowel sounds, Soft Heart: Regular rate, Normal S1 Extremities: No clubbing General: Alert, Oriented X3, Other (Icterus noted) HEENT: Atraumatic Lungs: Clear to auscultation MUSCULOSKELETAL: No swelling Neck: Supple, No JVD Neuro: Normal speech Skin: No rashes Assessment Assessment Assessment Obstructive jaundice Ascites s/p paracentesis on 05/10. Hx of extrahepatic cholangiocarcinoma s/p whipple resection in 2019 Weight loss Normocytic anemia Elevated INR, likely from hepatic dysfunction vs vitamin k deficiency Plan Plan of Care -Reviewed results of MRCP.Distal CBD stricture is favored to be non-malignant -ERCP was attempted today and was not successful. IR percutaneous drainage is being considered -Reviewed results of ascitic fluid cytology with the patient. It was negative for malignant cells -Consider hepatobiliary input reg management of obstructive jaundice -Will follow Dell Ram MD Medical Oncology Comment Review of Relevant I have reviewed the following items betty (where applicable) has been applied. Labs Laboratory Tests Test 05/10/20 16:00 05/11/20 02:45 05/11/20 07:40 Coronavirus (PCR) Not detected (Not Detected) SARS-CoV-2 Antigen (Rapid) Negative (NEGATIVE) Sodium Level 136 mmol/L (136-145) Potassium Level 4.5 mmol/L (3.5-5.1) Chloride Level 101 mmol/L (98-107) Carbon Dioxide Level 22 mmol/L (21-32) Anion Gap 13 (6-14) Blood Urea Nitrogen 11 mg/dL (7-20) Creatinine 0.7 mg/dL (0.6-1.0) Estimated GFR (Cockcroft-Gault) 80.1 Glucose Level 100 mg/dL (70-99) Calcium Level 8.0 mg/dL (8.5-10.1) White Blood Count 7.1 x10^3/uL (4.0-11.0) Red Blood Count 2.52 x10^6/uL (3.50-5.40) Hemoglobin 7.7 g/dL (12.0-15.5) Hematocrit 22.5 % (36.0-47.0) Mean Corpuscular Volume 89 fL (79-100) Mean Corpuscular Hemoglobin 30 pg (25-35) Mean Corpuscular Hemoglobin Concent 34 g/dL (31-37) Red Cell Distribution Width 17.9 % (11.5-14.5) Platelet Count 395 x10^3/uL (140-400) Neutrophils (%) (Auto) 51 % (31-73) Lymphocytes (%) (Auto) 39 % (24-48) Monocytes (%) (Auto) 8 % (0-9) Eosinophils (%) (Auto) 2 % (0-3) Basophils (%) (Auto) 1 % (0-3) Neutrophils # (Auto) 3.6 x10^3/uL (1.8-7.7) Lymphocytes # (Auto) 2.8 x10^3/uL (1.0-4.8) Monocytes # (Auto) 0.5 x10^3/uL (0.0-1.1) Eosinophils # (Auto) 0.2 x10^3/uL (0.0-0.7) Basophils # (Auto) 0.1 x10^3/uL (0.0-0.2) Microbiology 05/10/20 Gram Stain - Final, Resulted 05/10/20 Aerobic and Anaerobic Culture - Preliminary, Resulted 05/09/20 Blood Culture - Preliminary, Resulted NO GROWTH AFTER 2 DAYS Medications Current Medications Hydroxyzine HCl (Atarax) 10 mg PRN TID PRN PO ITCHING; Start 05/07/20 at 17:00 Sertraline HCl (Zoloft) 50 mg DAILY PO Last administered on 05/09/20at 08:44; Start 05/08/20 at 09:00; Stop 05/09/20 at 11:19; Status DC Amitriptyline HCl (Elavil) 50 mg QHS PO Last administered on 05/11/20at 20:47; Start 05/07/20 at 21:00 Acetaminophen (Tylenol) 325 mg PRN Q6HRS PRN PO MILD PAIN / TEMP > 100.3'F; Start 05/07/20 at 20:00 Iohexol (Omnipaque 300 Mg/ml) 75 ml 1X ONCE IV Last administered on 05/08/20at 13:30; Start 05/08/20 at 11:45; Stop 05/08/20 at 11:46; Status DC Info (CONTRAST GIVEN -- Rx MONITORING) 1 each PRN DAILY PRN MC SEE COMMENTS; Start 05/08/20 at 11:45; Stop 05/10/20 at 11:44; Status DC Tramadol HCl (Ultram) 50 mg TID PO Last administered on 05/09/20at 07:35; Start 05/08/20 at 14:00; Stop 05/09/20 at 11:15; Status DC Potassium Chloride (Klor-Con) 40 meq 1X ONCE PO Last administered on 05/08/20at 14:10; Start 05/08/20 at 12:15; Stop 05/08/20 at 12:16; Status DC Sodium Chloride 1,000 ml @ 60 mls/hr [id number] IV Last administered on 05/09/20at 07:36; Start 05/08/20 at 12:30; Stop 05/09/20 at 11:15; Status DC Amylase/Lipase/ Protease (Zenpep 5,000) 2 cap TIDWMEALS PO Last administered on 05/11/20at 16:59; Start 05/08/20 at 13:00 Phytonadione (Vitamin K Ampule) 2 mg 1X ONCE SQ Last administered on 05/09/20at 11:34; Start 05/09/20 at 11:00; Stop 05/09/20 at 11:01; Status DC Meropenem 1 gm/ Sodium Chloride 100 ml @ 200 mls/hr Q12HR IV Last administered on 05/12/20at 13:20; Start 05/09/20 at 11:30 Linezolid/Dextrose 300 ml @ 300 mls/hr Q12HR IV Last administered on 05/12/20at 11:45; Start 05/09/20 at 12:00 Acetaminophen/ Hydrocodone Bitart (Lortab 5/325) 1 tab PRN Q4HRS PRN PO MODERATE - SEVERE PAIN Last administered on 05/12/20at 11:44; Start 05/09/20 at 11:15 Vancomycin HCl (Vancomycin Oral Solution) 125 mg [id number] PO Last administered on 05/11/20at 20:47; Start 05/09/20 at 14:00 Lactobacillus Rhamnosus (Culturelle) 1 cap BID PO Last administered on 05/11/20at 20:47; Start 05/09/20 at 21:00 Lidocaine HCl (Buffered Lidocaine 1%) 3 ml STK-MED ONCE .ROUTE ; Start 05/10/20 at 08:09; Stop 05/10/20 at 08:09; Status DC Lidocaine HCl (Buffered Lidocaine 1%) 6 ml 1X ONCE INJ Last administered on 05/10/20at 08:15; Start 05/10/20 at 08:15; Stop 05/10/20 at 08:19; Status DC Lidocaine HCl (Buffered Lidocaine 1%) 3 ml 1X ONCE INJ ; Start 05/10/20 at 09:00; Stop 05/10/20 at 09:01; Status DC Potassium Chloride (Klor-Con) 20 meq 1X ONCE PO Last administered on 05/10/20at 10:29; Start 05/10/20 at 10:30; Stop 05/10/20 at 10:31; Status DC Levofloxacin/ Dextrose 100 ml @ 100 mls/hr 1X ONCE IV ; Start 05/12/20 at 09:00; Stop 05/12/20 at 09:59; Status DC Ringer's Solution 1,000 ml @ 30 mls/hr Q24H IV Last administered on 05/12/20at 09:39; Start 05/12/20 at 07:00; Stop 05/12/20 at 18:59 Prochlorperazine Edisylate (Compazine) 5 mg PACU PRN PRN IV NAUSEA, MRX1; Start 05/12/20 at 07:00; Stop 05/13/20 at 06:59 Ringer's Solution 1,000 ml @ 75 mls/hr 1X ONCE IV Last administered on 05/12/20at 11:46; Start 05/12/20 at 07:30; Stop 05/12/20 at 20:49 Iohexol (Omnipaque 300 Mg/ml) 100 ml STK-MED ONCE .ROUTE ; Start 05/12/20 at 09:24; Stop 05/12/20 at 09:24; Status DC Propofol (Diprivan) 200 mg STK-MED ONCE IV ; Start 05/12/20 at 10:12; Stop 05/12/20 at 10:12; Status DC Succinylcholine Chloride (Anectine) 200 mg STK-MED ONCE .ROUTE ; Start 05/10/20 at 09:00; Stop 05/12/20 at 12:52; Status DC Ephedrine Sulfate (ePHEDrine PF IN SALINE SYRINGE) 50 mg STK-MED ONCE IV ; Start 05/10/20 at 09:00; Stop 05/12/20 at 12:52; Status DC Morphine Sulfate (Morphine Sulfate) 1 mg PRN Q4HRS PRN IV MODERATE PAIN Last administered on 05/12/20at 13:24; Start 05/12/20 at 13:15 Ondansetron HCl (Zofran) 4 mg PRN Q6HRS PRN IVP NAUSEA/VOMITING Last administered on 05/12/20at 13:25; Start 05/12/20 at 13:15 Tramadol HCl (Ultram) 50 mg TID PO ; Start 05/12/20 at 14:00 Active Scripts Active Tramadol Hcl 50 Mg Tablet 50 Mg PO TID Flagyl (Metronidazole) 500 Mg Tablet 500 Mg PO Q8HRS Cephalexin 250 Mg Capsule 500 Mg PO TID Zoloft (Sertraline Hcl) 50 Mg Tablet 50 Mg PO DAILY Reported Amitriptyline Hcl 50 Mg Tablet 50 Mg PO QHS Hydroxyzine Hcl 10 Mg Tablet 10 Mg PO PRN TID PRN Vitals/I & O Vital Sign - Last 24 Hours 05/11/20 05/11/20 05/11/20 05/11/20 15:00 19:00 19:50 23:00 Temp 98.6 98.1 98.4 98.6 98.1 98.4 Pulse 78 93 78 Resp 18 16 B/P (MAP) 113/62 (79) 111/68 (82) 113/71 (85) Pulse Ox 96 96 95 O2 Delivery Room Air Room Air Room Air 05/11/20 05/12/20 05/12/20 05/12/20 23:54 00:54 07:00 07:10 Temp 98.6 98.6 Pulse 68 Resp 20 20 18 B/P (MAP) 113/72 (86) Pulse Ox 95 O2 Delivery Room Air Room Air Room Air Room Air 05/12/20 05/12/20 05/12/20 05/12/20 09:34 09:37 11:04 11:19 Temp 97.7 98.2 97.7 98.2 Pulse 77 80 85 Resp 18 16 20 B/P (MAP) 112/60 Pulse Ox 96 100 94 O2 Delivery Room Air Room Air Room Air 05/12/20 05/12/20 05/12/20 11:44 13:24 13:24 O2 Delivery Room Air Room Air Room Air Intake and Output 05/11/20 05/11/20 05/12/20 15:00 23:00 07:00 Intake Total 200 ml 0 ml Balance 200 ml 0 ml Justicifation of Admission Dx: Justifications for Admission: Justification of Admission Dx: Yes Nutrition Consultation Dietary Evaluation: Recommendations by RD: Dietary education by RD, Increase Calorie Intake, Pro tein supplementation Comments: diet education on low Na diet provided due to condition diet changed to low Na ( cardiac) due to ascites supplements added for extra kcal/ protein: ensure pudding and magic cup due to malnutrition appearance Expected Outcomes/Goals: to meet >75% est nutr needs Malnutrition Findings: Muscle Mass (Severe): Severe Depletion Weight Status: Underweight Fluid Accumulation (Severe): Severe RIP RAM MD May 12, 2020 13:44
[2020-05-12] MEDS: traMADol 50 MG TABLET PO SCH ×2 (14:00→21:11)
[2020-05-12 15:00] VITALS: BP 156/85
[2020-05-12 19:00] VITALS: BP 125/84
[2020-05-12] MEDS: AMITRIPTYLINE HCL 25 MG TABLET. PO SCH (21:09)
[2020-05-12 23:00] VITALS: BP 107/70
[2020-05-13] MEDS: MORPHINE SULFATE 2 MG/ML VIAL. IV PRN ×2 (02:47→22:25)
[2020-05-13 03:00] VITALS: BP 94/56
[2020-05-13 06:20] LABS: ALBUMIN 1.6 g/dL (3.4-5.0); CALCIUM 7.8 mg/dL (8.5-10.1); CREATININE 0.8 mg/dL (0.6-1.0); DIRECT BILIRUBIN 6.8 mg/dL (0.0-0.2); GFR 68.7; MAGNESIUM 2.1 mg/dL (1.8-2.4); POTASSIUM 3.8 mmol/L (3.5-5.1); TOTAL BILIRUBIN 7.8 mg/dL (0.2-1.0); TOTAL PROTEIN 5.9 g/dL (6.4-8.2)
[2020-05-13 07:00] VITALS: BP 95/48
[2020-05-13 07:34] LABS: BASO % 0 % (0-3); EOS # 0.1 x10^3/uL (0.0-0.7); EOS % 2 % (0-3); HEMATOCRIT 22.7 % (36.0-47.0); HEMOGLOBIN 7.7 g/dL (12.0-15.5); LYMPH % 32 % (24-48); MEAN CORPUSCULAR HEMOGLOBIN 31 pg (25-35); MEAN CORPUSCULAR HGB CONC 34 g/dL (31-37); MEAN CORPUSCULAR VOLUME 90 fL (79-100); MONO # 0.5 x10^3/uL (0.0-1.1); MONO % 8 % (0-9); NEUT # 3.6 x10^3/uL (1.8-7.7); NEUT % 58 % (31-73); PLATELET COUNT 402 x10^3/uL (140-400); RED BLOOD COUNT 2.52 x10^6/uL (3.50-5.40); RED CELL DISTRIBUTION WIDTH 17.6 % (11.5-14.5); WHITE BLOOD COUNT 6.3 x10^3/uL (4.0-11.0)
[2020-05-13] MEDS: LACTOBACILLUS RHAMNOSUS GG 1 CAPSULE. PO SCH ×2 (09:00→20:48)
[2020-05-13] MEDS: VANCOMYCIN 125 MG/2.5 ML ORAL SOLUTION. PO SCH ×4 (09:00→20:52)
[2020-05-13] MEDS: MEROPENEM 1 GM in IV NORMAL SALINE 100ML 100 ML IV SCH ×2 (09:00→20:55)
[2020-05-13] MEDS: traMADol 50 MG TABLET PO SCH ×3 (09:00→20:48)
[2020-05-13 10:08] LABS: % BANDS 2 % (0-9); % EOS 2 % (0-5); % LYMPHS 20 % (24-48); % MONOS 2 % (0-10); % SEGS 74 % (35-66); PLT ESTIMATE ADEQUATE (ADEQUATE)
[2020-05-13 11:00] VITALS: BP 108/59
--- NOTE | 2020-05-13 11:23 | PDOC ---
Infectious Disease Note Subjective Subjective A little uncomfortable with hemorrhoid but ok No F/c/S/N/V/d/SOA ROS ROS o/w neg Vital Sign Vital Signs Vital Signs Date Time Temp Pulse Resp B/P (MAP) Pulse Ox O2 Delivery O2 Flow Rate FiO2 05/13/20 11:00 97.8 67 18 108/59 (75) 97 Room Air 97.8 Physical Exam PHYSICAL EXAM GENERAL: The patient is in bed and looks well. alert and smiling. HEENT: Scleral icterus. Oropharynx dry. No lesions seen. NECK: Supple. LUNGS: Clear to auscultation. HEART: S1 and S2. ABDOMEN: Distended, taut, bowel sounds present. Tender to deep palpation. No rebound. EXTREMITIES: No gross edema or cyanosis. SKIN: Warm to touch. No signs of rash. NEUROLOGIC: Alert and answering questions appropriately. Labs Lab Laboratory Tests Test 05/13/20 04:12 White Blood Count 6.3 x10^3/uL (4.0-11.0) Red Blood Count 2.52 x10^6/uL (3.50-5.40) Hemoglobin 7.7 g/dL (12.0-15.5) Hematocrit 22.7 % (36.0-47.0) Mean Corpuscular Volume 90 fL (79-100) Mean Corpuscular Hemoglobin 31 pg (25-35) Mean Corpuscular Hemoglobin Concent 34 g/dL (31-37) Red Cell Distribution Width 17.6 % (11.5-14.5) Platelet Count 402 x10^3/uL (140-400) Neutrophils (%) (Auto) 58 % (31-73) Lymphocytes (%) (Auto) 32 % (24-48) Monocytes (%) (Auto) 8 % (0-9) Eosinophils (%) (Auto) 2 % (0-3) Basophils (%) (Auto) 0 % (0-3) Neutrophils # (Auto) 3.6 x10^3/uL (1.8-7.7) Lymphocytes # (Auto) 2.0 x10^3/uL (1.0-4.8) Monocytes # (Auto) 0.5 x10^3/uL (0.0-1.1) Eosinophils # (Auto) 0.1 x10^3/uL (0.0-0.7) Basophils # (Auto) 0.0 x10^3/uL (0.0-0.2) Segmented Neutrophils % 74 % (35-66) Band Neutrophils % 2 % (0-9) Lymphocytes % 20 % (24-48) Monocytes % 2 % (0-10) Eosinophils % 2 % (0-5) Platelet Estimate Adequate (ADEQUATE) Sodium Level 138 mmol/L (136-145) Potassium Level 3.8 mmol/L (3.5-5.1) Chloride Level 104 mmol/L (98-107) Carbon Dioxide Level 27 mmol/L (21-32) Anion Gap 7 (6-14) Blood Urea Nitrogen 9 mg/dL (7-20) Creatinine 0.8 mg/dL (0.6-1.0) Estimated GFR (Cockcroft-Gault) 68.7 Glucose Level 88 mg/dL (70-99) Calcium Level 7.8 mg/dL (8.5-10.1) Magnesium Level 2.1 mg/dL (1.8-2.4) Total Bilirubin 7.8 mg/dL (0.2-1.0) Direct Bilirubin 6.8 mg/dL (0.0-0.2) Aspartate Amino Transf (AST/SGOT) 133 U/L (15-37) Alanine Aminotransferase (ALT/SGPT) 64 U/L (14-59) Alkaline Phosphatase 1023 U/L (46-116) Total Protein 5.9 g/dL (6.4-8.2) Albumin 1.6 g/dL (3.4-5.0) Micro MRCP 05/11 IMPRESSION: 1. 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 A postprocedural stricture is favored over tumor recurrence at this location. ERCP could further evaluate if there is persistent concern. 2. Dilated irregular pancreatic duct upstream from the pancreatic resection margin with pancreatic parenchymal atrophy. 3. Moderate ascites. Correlate for peritoneal metastatic disease. Ascitic fluid GRAM STAIN Final Final NO ORGANISMS SEEN. SQUAMOUS EPI CELL:NOT APPLICABLE PMN (WBCs):RARE Unless otherwise specified, Testing Performed by: [address] [id number] For Inquires, the Physician may contact the Microbiology department at [phone] Microbiology 05/10/20 Gram Stain - Final, Resulted 05/10/20 Aerobic and Anaerobic Culture - Preliminary, Resulted 05/09/20 Blood Culture - Preliminary, Resulted NO GROWTH AFTER 1 DAY Objective Assessment 1. Fever - better. 2. Leukocytosis - better. 3. Abdominal pain.s/p Paracentesis 1900 ml out 364 WBC 4. Ascites ? sec to obstruction. 5. Diarrhea. 6. Recent history of Clostridium difficile colitis on 04/14/2020. 7. Hyperbilirubinemia. 8. 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 She did not tolerate adjuvant chemotherapy. 9. Severe protein-calorie malnutrition. Plan Plan of Care Patient was stated on Zyvox and meropenem per primary 05/09 add po vancomycin with recent h/o C. difficile IR eval pending after unsuccessful ERCP f/u blood cultures/paracentesis results - neg for cytology Monitor labs/temp Maintain aspiration precautions D/w Dr. Perez/ and nursing JERRELL GOODSON MD May 13, 2020 11:22
--- NOTE | 2020-05-13 11:37 | PDOC ---
PROGRESS NOTES Date of Service DATE: 05/13/20 TIME: 11:33 Subjective Subjective peritoneal fluid without malignant cells. ERCP not successful to cannulate bile duct. has more ascites. will start spironolactone. Objective Objective Vital Signs Date Time Temp Pulse Resp B/P (MAP) Pulse Ox O2 Delivery O2 Flow Rate FiO2 05/13/20 11:00 97.8 67 18 108/59 (75) 97 Room Air 97.8 Intake and Output 05/13/20 07:00 Intake Total 480 ml Balance 480 ml Intake Oral 480 ml # Voids 12 # Bowel Movements 8 Physical Exam Abdomen: Soft, Other (ascites) Heart: Regular rate, Normal S1, Normal S2 Extremities: No edema General: Alert HEENT: Atraumatic, Other (sclera icteric) Lungs: Clear to auscultation Neuro: Normal speech Psych/Mental Status: Mental status NL Skin: No rashes, Other (jaundiced) Assessment Assessment 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 Suspected obstructive jaundice.due to bile duct stricture 3. 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 paracentesis 05/10/20. benign cells 4. Anemia. 5. Hypokalemia treated 6. Severe protein-calorie malnutrition. 7. Fibromyalgia. 8. Hypotension treated low grade fever resolved abdominal pain hx of c,.diff bile duct stricture Plan Plan of Care start spironolactone IR to attempt to percutaneous drain bile duct discussed with and dr. Zacarias continue zyvox and meropenem Comment Review of Relevant I have reviewed the following items betty (where applicable) has been applied. Labs Laboratory Tests Test 05/13/20 04:12 White Blood Count 6.3 x10^3/uL (4.0-11.0) Red Blood Count 2.52 x10^6/uL (3.50-5.40) Hemoglobin 7.7 g/dL (12.0-15.5) Hematocrit 22.7 % (36.0-47.0) Mean Corpuscular Volume 90 fL (79-100) Mean Corpuscular Hemoglobin 31 pg (25-35) Mean Corpuscular Hemoglobin Concent 34 g/dL (31-37) Red Cell Distribution Width 17.6 % (11.5-14.5) Platelet Count 402 x10^3/uL (140-400) Neutrophils (%) (Auto) 58 % (31-73) Lymphocytes (%) (Auto) 32 % (24-48) Monocytes (%) (Auto) 8 % (0-9) Eosinophils (%) (Auto) 2 % (0-3) Basophils (%) (Auto) 0 % (0-3) Neutrophils # (Auto) 3.6 x10^3/uL (1.8-7.7) Lymphocytes # (Auto) 2.0 x10^3/uL (1.0-4.8) Monocytes # (Auto) 0.5 x10^3/uL (0.0-1.1) Eosinophils # (Auto) 0.1 x10^3/uL (0.0-0.7) Basophils # (Auto) 0.0 x10^3/uL (0.0-0.2) Segmented Neutrophils % 74 % (35-66) Band Neutrophils % 2 % (0-9) Lymphocytes % 20 % (24-48) Monocytes % 2 % (0-10) Eosinophils % 2 % (0-5) Platelet Estimate Adequate (ADEQUATE) Sodium Level 138 mmol/L (136-145) Potassium Level 3.8 mmol/L (3.5-5.1) Chloride Level 104 mmol/L (98-107) Carbon Dioxide Level 27 mmol/L (21-32) Anion Gap 7 (6-14) Blood Urea Nitrogen 9 mg/dL (7-20) Creatinine 0.8 mg/dL (0.6-1.0) Estimated GFR (Cockcroft-Gault) 68.7 Glucose Level 88 mg/dL (70-99) Calcium Level 7.8 mg/dL (8.5-10.1) Magnesium Level 2.1 mg/dL (1.8-2.4) Total Bilirubin 7.8 mg/dL (0.2-1.0) Direct Bilirubin 6.8 mg/dL (0.0-0.2) Aspartate Amino Transf (AST/SGOT) 133 U/L (15-37) Alanine Aminotransferase (ALT/SGPT) 64 U/L (14-59) Alkaline Phosphatase 1023 U/L (46-116) Total Protein 5.9 g/dL (6.4-8.2) Albumin 1.6 g/dL (3.4-5.0) Laboratory Tests Test 05/13/20 04:12 White Blood Count 6.3 x10^3/uL (4.0-11.0) Red Blood Count 2.52 x10^6/uL (3.50-5.40) Hemoglobin 7.7 g/dL (12.0-15.5) Hematocrit 22.7 % (36.0-47.0) Mean Corpuscular Volume 90 fL (79-100) Mean Corpuscular Hemoglobin 31 pg (25-35) Mean Corpuscular Hemoglobin Concent 34 g/dL (31-37) Red Cell Distribution Width 17.6 % (11.5-14.5) Platelet Count 402 x10^3/uL (140-400) Neutrophils (%) (Auto) 58 % (31-73) Lymphocytes (%) (Auto) 32 % (24-48) Monocytes (%) (Auto) 8 % (0-9) Eosinophils (%) (Auto) 2 % (0-3) Basophils (%) (Auto) 0 % (0-3) Neutrophils # (Auto) 3.6 x10^3/uL (1.8-7.7) Lymphocytes # (Auto) 2.0 x10^3/uL (1.0-4.8) Monocytes # (Auto) 0.5 x10^3/uL (0.0-1.1) Eosinophils # (Auto) 0.1 x10^3/uL (0.0-0.7) Basophils # (Auto) 0.0 x10^3/uL (0.0-0.2) Segmented Neutrophils % 74 % (35-66) Band Neutrophils % 2 % (0-9) Lymphocytes % 20 % (24-48) Monocytes % 2 % (0-10) Eosinophils % 2 % (0-5) Platelet Estimate Adequate (ADEQUATE) Sodium Level 138 mmol/L (136-145) Potassium Level 3.8 mmol/L (3.5-5.1) Chloride Level 104 mmol/L (98-107) Carbon Dioxide Level 27 mmol/L (21-32) Anion Gap 7 (6-14) Blood Urea Nitrogen 9 mg/dL (7-20) Creatinine 0.8 mg/dL (0.6-1.0) Estimated GFR (Cockcroft-Gault) 68.7 Glucose Level 88 mg/dL (70-99) Calcium Level 7.8 mg/dL (8.5-10.1) Magnesium Level 2.1 mg/dL (1.8-2.4) Total Bilirubin 7.8 mg/dL (0.2-1.0) Direct Bilirubin 6.8 mg/dL (0.0-0.2) Aspartate Amino Transf (AST/SGOT) 133 U/L (15-37) Alanine Aminotransferase (ALT/SGPT) 64 U/L (14-59) Alkaline Phosphatase 1023 U/L (46-116) Total Protein 5.9 g/dL (6.4-8.2) Albumin 1.6 g/dL (3.4-5.0) Microbiology 05/10/20 Gram Stain - Final, Resulted 05/10/20 Aerobic and Anaerobic Culture - Preliminary, Resulted 05/09/20 Blood Culture - Preliminary, Resulted NO GROWTH AFTER 3 DAYS Medications Current Medications Hydroxyzine HCl (Atarax) 10 mg PRN TID PRN PO ITCHING; Start 05/07/20 at 17:00 Sertraline HCl (Zoloft) 50 mg DAILY PO Last administered on 05/09/20at 08:44; Start 05/08/20 at 09:00; Stop 05/09/20 at 11:19; Status DC Amitriptyline HCl (Elavil) 50 mg QHS PO Last administered on 05/12/20at 21:09; Start 05/07/20 at 21:00 Acetaminophen (Tylenol) 325 mg PRN Q6HRS PRN PO MILD PAIN / TEMP > 100.3'F; St art 05/07/20 at 20:00 Iohexol (Omnipaque 300 Mg/ml) 75 ml 1X ONCE IV Last administered on 05/08/20at 13:30; Start 05/08/20 at 11:45; Stop 05/08/20 at 11:46; Status DC Info (CONTRAST GIVEN -- Rx MONITORING) 1 each PRN DAILY PRN MC SEE COMMENTS; Start 05/08/20 at 11:45; Stop 05/10/20 at 11:44; Status DC Tramadol HCl (Ultram) 50 mg TID PO Last administered on 05/09/20at 07:35; Start 05/08/20 at 14:00; Stop 05/09/20 at 11:15; Status DC Potassium Chloride (Klor-Con) 40 meq 1X ONCE PO Last administered on 05/08/20at 14:10; Start 05/08/20 at 12:15; Stop 05/08/20 at 12:16; Status DC Sodium Chloride 1,000 ml @ 60 mls/hr [id number] IV Last administered on 05/09/20at 07:36; Start 05/08/20 at 12:30; Stop 05/09/20 at 11:15; Status DC Amylase/Lipase/ Protease (Zenpep 5,000) 2 cap TIDWMEALS PO Last administered on 05/11/20at 16:59; Start 05/08/20 at 13:00 Phytonadione (Vitamin K Ampule) 2 mg 1X ONCE SQ Last administered on 05/09/20at 11:34; Start 05/09/20 at 11:00; Stop 05/09/20 at 11:01; Status DC Meropenem 1 gm/ Sodium Chloride 100 ml @ 200 mls/hr Q12HR IV Last administered on 05/13/20at 09:00; Start 05/09/20 at 11:30 Linezolid/Dextrose 300 ml @ 300 mls/hr Q12HR IV Last administered on 05/13/20at 09:00; Start 05/09/20 at 12:00 Acetaminophen/ Hydrocodone Bitart (Lortab 5/325) 1 tab PRN Q4HRS PRN PO MODERATE - SEVERE PAIN Last administered on 05/12/20at 23:55; Start 05/09/20 at 11:15 Vancomycin HCl (Vancomycin Oral Solution) 125 mg [id number] PO Last administered on 05/12/20at 21:09; Start 05/09/20 at 14:00 Lactobacillus Rhamnosus (Culturelle) 1 cap BID PO Last administered on 05/12/20at 21:11; Start 05/09/20 at 21:00 Lidocaine HCl (Buffered Lidocaine 1%) 3 ml STK-MED ONCE .ROUTE ; Start 05/10/20 at 08:09; Stop 05/10/20 at 08:09; Status DC Lidocaine HCl (Buffered Lidocaine 1%) 6 ml 1X ONCE INJ Last administered on 05/10/20at 08:15; Start 05/10/20 at 08:15; Stop 05/10/20 at 08:19; Status DC Lidocaine HCl (Buffered Lidocaine 1%) 3 ml 1X ONCE INJ ; Start 05/10/20 at 09:00; Stop 05/10/20 at 09:01; Status DC Potassium Chloride (Klor-Con) 20 meq 1X ONCE PO Last administered on 05/10/20at 10:29; Start 05/10/20 at 10:30; Stop 05/10/20 at 10:31; Status DC Levofloxacin/ Dextrose 100 ml @ 100 mls/hr 1X ONCE IV Last administered on 05/12/20at 14:15; Start 05/12/20 at 09:00; Stop 05/12/20 at 09:59; Status DC Ringer's Solution 1,000 ml @ 30 mls/hr Q24H IV Last administered on 05/12/20at 09:39; Start 05/12/20 at 07:00; Stop 05/12/20 at 18:59; Status DC Prochlorperazine Edisylate (Compazine) 5 mg PACU PRN PRN IV NAUSEA, MRX1; Start 05/12/20 at 07:00; Stop 05/13/20 at 06:59; Status DC Ringer's Solution 1,000 ml @ 75 mls/hr 1X ONCE IV Last administered on 05/12/20at 11:46; Start 05/12/20 at 07:30; Stop 05/12/20 at 20:49; Status DC Iohexol (Omnipaque 300 Mg/ml) 100 ml STK-MED ONCE .ROUTE ; Start 05/12/20 at 09:24; Stop 05/12/20 at 09:24; Status DC Propofol (Diprivan) 200 mg STK-MED ONCE IV ; Start 05/12/20 at 10:12; Stop 05/12/20 at 10:12; Status DC Succinylcholine Chloride (Anectine) 200 mg STK-MED ONCE .ROUTE ; Start 05/10/20 at 09:00; Stop 05/12/20 at 12:52; Status DC Ephedrine Sulfate (ePHEDrine PF IN SALINE SYRINGE) 50 mg STK-MED ONCE IV ; Star t 05/10/20 at 09:00; Stop 05/12/20 at 12:52; Status DC Morphine Sulfate (Morphine Sulfate) 1 mg PRN Q4HRS PRN IV MODERATE PAIN Last administered on 05/13/20at 02:47; Start 05/12/20 at 13:15 Ondansetron HCl (Zofran) 4 mg PRN Q6HRS PRN IVP NAUSEA/VOMITING Last administered on 05/12/20at 13:25; Start 05/12/20 at 13:15 Tramadol HCl (Ultram) 50 mg TID PO Last administered on 05/12/20at 21:11; Start 05/12/20 at 14:00 Active Scripts Active Tramadol Hcl 50 Mg Tablet 50 Mg PO TID Flagyl (Metronidazole) 500 Mg Tablet 500 Mg PO Q8HRS Cephalexin 250 Mg Capsule 500 Mg PO TID Zoloft (Sertraline Hcl) 50 Mg Tablet 50 Mg PO DAILY Reported Amitriptyline Hcl 50 Mg Tablet 50 Mg PO QHS Hydroxyzine Hcl 10 Mg Tablet 10 Mg PO PRN TID PRN Vitals/I & O Vital Sign - Last 24 Hours 05/12/20 05/12/20 05/12/20 05/12/20 11:44 13:24 13:24 15:00 Temp 98.8 98.8 Pulse 84 Resp 16 B/P (MAP) 156/85 (108) Pulse Ox 93 O2 Delivery Room Air Room Air Room Air Room Air 05/12/20 05/12/20 05/12/20 05/12/20 19:00 19:35 21:11 22:11 Temp 98.7 98.7 Pulse 91 Resp 20 20 B/P (MAP) 125/84 (98) Pulse Ox 95 O2 Delivery Room Air Room Air Room Air Room Air 05/12/20 05/12/20 05/13/20 05/13/20 23:00 23:55 00:55 02:47 Temp 98.4 98.4 Pulse 96 Resp 20 B/P (MAP) 107/70 (82) Pulse Ox 94 O2 Delivery Room Air Room Air Room Air Room Air 05/13/20 05/13/20 05/13/20 05/13/20 03:00 03:17 07:00 11:00 Temp 98.4 97.5 97.8 98.4 97.5 97.8 Pulse 81 81 67 Resp 16 20 16 18 B/P (MAP) 94/56 (69) 95/48 (64) 108/59 (75) Pulse Ox 94 91 97 O2 Delivery Room Air Room Air Room Air Room Air l Intake and Output 05/12/20 05/12/20 05/13/20 15:00 23:00 07:00 Intake Total 480 ml Balance 480 ml Justicifation of Admission Dx: Justifications for Admission: Justification of Admission Dx: Yes Nutrition Consultation Dietary Evaluation: Recommendations by RD: Dietary education by RD, Increase Calorie Intake, Protein supplementation Comments: diet education on low Na diet provided due to condition diet changed to low Na ( cardiac) due to ascites supplements added for extra kcal/ protein: ensure pudding and magic cup due to malnutrition appearance Expected Outcomes/Goals: to meet >75% est nutr needs Malnutrition Findings: Muscle Mass (Severe): Severe Depletion Weight Status: Underweight Fluid Accumulation (Severe): Severe SRINIVASA ABDULLAHI MD May 13, 2020 11:37
[2020-05-13] MEDS: SPIRONOLACTONE 25 MG TABLET PO SCH ×3 (11:55→20:48)
--- NOTE | 2020-05-13 13:17 | PDOC ---
Date of Service: DATE: 05/13/20 TIME: 13:13 Subjective: Subjective: Doing okay, tried to eat a little lunch. Objective: Vital Signs: Vital Signs Date Time Temp Pulse Resp B/P (MAP) Pulse Ox O2 Delivery O2 Flow Rate FiO2 05/13/20 11:00 97.8 67 18 108/59 (75) 97 Room Air 97.8 Labs: Laboratory Tests Test 05/13/20 04:12 White Blood Count 6.3 x10^3/uL Red Blood Count 2.52 x10^6/uL Hemoglobin 7.7 g/dL Hematocrit 22.7 % Mean Corpuscular Volume 90 fL Mean Corpuscular Hemoglobin 31 pg Mean Corpuscular Hemoglobin Concent 34 g/dL Red Cell Distribution Width 17.6 % Platelet Count 402 x10^3/uL Neutrophils (%) (Auto) 58 % Lymphocytes (%) (Auto) 32 % Monocytes (%) (Auto) 8 % Eosinophils (%) (Auto) 2 % Basophils (%) (Auto) 0 % Neutrophils # (Auto) 3.6 x10^3/uL Lymphocytes # (Auto) 2.0 x10^3/uL Monocytes # (Auto) 0.5 x10^3/uL Eosinophils # (Auto) 0.1 x10^3/uL Basophils # (Auto) 0.0 x10^3/uL Segmented Neutrophils % 74 % Band Neutrophils % 2 % Lymphocytes % 20 % Monocytes % 2 % Eosinophils % 2 % Platelet Estimate Adequate Sodium Level 138 mmol/L Potassium Level 3.8 mmol/L Chloride Level 104 mmol/L Carbon Dioxide Level 27 mmol/L Anion Gap 7 Blood Urea Nitrogen 9 mg/dL Creatinine 0.8 mg/dL Estimated GFR (Cockcroft-Gault) 68.7 Glucose Level 88 mg/dL Calcium Level 7.8 mg/dL Magnesium Level 2.1 mg/dL Total Bilirubin 7.8 mg/dL Direct Bilirubin 6.8 mg/dL Aspartate Amino Transf (AST/SGOT) 133 U/L Alanine Aminotransferase (ALT/SGPT) 64 U/L Alkaline Phosphatase 1023 U/L Total Protein 5.9 g/dL Albumin 1.6 g/dL Note [facility] Accession Number: [id number] TESTS RESULT FLAG UNITS REF RANGE LAB Clinician Provided Cytology Information No. of containers..01 Other (Miscellaneous) Source: ASCITES DIAGNOSIS: 02 ASCITES NEGATIVE FOR MALIGNANT CELLS. FEW MESOTHELIAL CELLS IDENTIFIED WITHIN A BACKGROUND OF ACUTE AND CHRONIC INFLAMMATORY CELLS. THIS INTERPRETATION INCLUDES EVALUATION OF A CELL BLOCK. Signed out by: 02 Kane Carranza MD, Pathologist NPI- [id number] Performed by: 01 Sanjana Dubois Building Maintenance Superintendent (ASCP) Gross description: 35ML, CLR BRT YELLOW, 1 TP 1 CB /LCS 05/10/2020 1616 Local Imaging: MRCP IMPRESSION: 1. 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 A postprocedural stricture is favored over tumor recurrence at this location. ERCP could further evaluate if there is persistent concern. 2. Dilated irregular pancreatic duct upstream from the pancreatic resection margin with pancreatic parenchymal atrophy. 3. Moderate ascites. Correlate for peritoneal metastatic disease. ERCP E--grade a reflux distally. G--Normal. Pancreatogastrostomy not identified clearly. D--Well into neoduodenum. Mucosa normal. Proximal to stomach tortuous and angulated. Unable to clearly visualize the biliary anastomosis. Several blind pokes with cannula into suspect area unsuccessful. IMP: Mild reflux esophagitis. Unfavorable anatomy. REC: Will discuss with IR whether they can do anything. Continue other. PE: GEN: NAD, pleasant as always LUNGS: clear anteriorly HEART: RRR ABD: ascites SKIN: jaundice NEURO/PSYCH: A & O 3 A/P: H/o cholangiocarcinoma s/p Whipple, ascites, jaundice w/ stricture -- Dr. Bingham and Dr. Scales have discussed - tentative plans for PTC placement and then re-scope tomorrow. Justicifation of Admission Dx: Justifications for Admission: Justification of Admission Dx: Yes CORI PEDERSEN May 13, 2020 13:17
[2020-05-13] MEDS: HYDROCORTISONE ACETATE 25 MG SUPP.RECT PR SCH ×2 (14:03→20:47)
[2020-05-13 15:00] VITALS: BP 110/67
[2020-05-13] MEDS: HYDROcodone/APAP 5/325MG 1 TAB TABLET PO PRN (17:04)
--- NOTE | 2020-05-13 18:43 | NUR ---
[facility] 2020 at 10:30am , Sunday.
[2020-05-13 19:55] VITALS: BP 103/65
[2020-05-13] MEDS: AMITRIPTYLINE HCL 25 MG TABLET. PO SCH (20:48)
[2020-05-13 23:21] VITALS: BP 113/70
[2020-05-14] VITALS (14 sets, daily range): BP systolic 103–140; BP diastolic 62–75
[2020-05-14] MEDS: LACTOBACILLUS RHAMNOSUS GG 1 CAPSULE. PO SCH ×2 (07:22→19:53)
[2020-05-14] MEDS: MEROPENEM 1 GM in IV NORMAL SALINE 100ML 100 ML IV SCH ×2 (07:48→19:56)
[2020-05-14] MEDS: HYDROCORTISONE ACETATE 25 MG SUPP.RECT PR SCH ×2 (09:00→19:53)
[2020-05-14] MEDS: SPIRONOLACTONE 25 MG TABLET PO SCH ×2 (09:00→19:52)
[2020-05-14] MEDS: VANCOMYCIN 125 MG/2.5 ML ORAL SOLUTION. PO SCH ×4 (09:00→19:55)
[2020-05-14] MEDS: traMADol 50 MG TABLET PO SCH ×3 (09:00→21:47)
--- NOTE | 2020-05-14 10:08 | PDOC ---
PROGRESS NOTES Date of Service DATE: 05/14/20 TIME: 10:05 Subjective Subjective feels the same. discussed case with dr. Scales and dr. ching yseterlynda. Objective Objective Vital Signs Date Time Temp Pulse Resp B/P (MAP) Pulse Ox O2 Delivery O2 Flow Rate FiO2 05/14/20 08:00 Room Air 05/14/20 07:00 97.9 89 18 113/68 (83) 97.9 05/14/20 03:14 94 Intake and Output 05/14/20 06:59 Intake Total 500 ml Output Total 0 ml Balance 500 ml Intake Oral 500 ml Output Urine Total 0 ml Physical Exam Abdomen: Soft Heart: Regular rate, Normal S1, Normal S2 Extremities: No edema General: Alert HEENT: Atraumatic, Other (sclera icteric) Lungs: Clear to auscultation Neck: Supple Neuro: Normal speech Psych/Mental Status: Mental status NL Skin: Other (jaundiced) Assessment Assessment 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 Suspected obstructive jaundice.due to bile duct stricture 3. 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 paracentesis 05/10/20. benign cells 4. Anemia. 5. Hypokalemia treated 6. Severe protein-calorie malnutrition. 7. Fibromyalgia. 8. Hypotension treated low grade fever resolved abdominal pain hx of c,.diff bile duct stricture Plan Plan of Care continue zyvox and meropenem and oral vancomycin continue spironolactone attempted bile duct stricture dilatation and placement of drainage tube for ascites lab tomorrow Comment Review of Relevant I have reviewed the following items betty (where applicable) has been applied. Labs Laboratory Tests Test 05/13/20 04:12 White Blood Count 6.3 x10^3/uL (4.0-11.0) Red Blood Count 2.52 x10^6/uL (3.50-5.40) Hemoglobin 7.7 g/dL (12.0-15.5) Hematocrit 22.7 % (36.0-47.0) Mean Corpuscular Volume 90 fL (79-100) Mean Corpuscular Hemoglobin 31 pg (25-35) Mean Corpuscular Hemoglobin Concent 34 g/dL (31-37) Red Cell Distribution Width 17.6 % (11.5-14.5) Platelet Count 402 x10^3/uL (140-400) Neutrophils (%) (Auto) 58 % (31-73) Lymphocytes (%) (Auto) 32 % (24-48) Monocytes (%) (Auto) 8 % (0-9) Eosinophils (%) (Auto) 2 % (0-3) Basophils (%) (Auto) 0 % (0-3) Neutrophils # (Auto) 3.6 x10^3/uL (1.8-7.7) Lymphocytes # (Auto) 2.0 x10^3/uL (1.0-4.8) Monocytes # (Auto) 0.5 x10^3/uL (0.0-1.1) Eosinophils # (Auto) 0.1 x10^3/uL (0.0-0.7) Basophils # (Auto) 0.0 x10^3/uL (0.0-0.2) Segmented Neutrophils % 74 % (35-66) Band Neutrophils % 2 % (0-9) Lymphocytes % 20 % (24-48) Monocytes % 2 % (0-10) Eosinophils % 2 % (0-5) Platelet Estimate Adequate (ADEQUATE) Sodium Level 138 mmol/L (136-145) Potassium Level 3.8 mmol/L (3.5-5.1) Chloride Level 104 mmol/L (98-107) Carbon Dioxide Level 27 mmol/L (21-32) Anion Gap 7 (6-14) Blood Urea Nitrogen 9 mg/dL (7-20) Creatinine 0.8 mg/dL (0.6-1.0) Estimated GFR (Cockcroft-Gault) 68.7 Glucose Level 88 mg/dL (70-99) Calcium Level 7.8 mg/dL (8.5-10.1) Magnesium Level 2.1 mg/dL (1.8-2.4) Total Bilirubin 7.8 mg/dL (0.2-1.0) Direct Bilirubin 6.8 mg/dL (0.0-0.2) Aspartate Amino Transf (AST/SGOT) 133 U/L (15-37) Alanine Aminotransferase (ALT/SGPT) 64 U/L (14-59) Alkaline Phosphatase 1023 U/L (46-116) Total Protein 5.9 g/dL (6.4-8.2) Albumin 1.6 g/dL (3.4-5.0) Microbiology 05/10/20 Gram Stain - Final, Resulted 05/10/20 Aerobic and Anaerobic Culture - Preliminary, Resulted 05/09/20 Blood Culture - Preliminary, Resulted NO GROWTH AFTER 4 DAYS Medications Current Medications Hydroxyzine HCl (Atarax) 10 mg PRN TID PRN PO ITCHING; Start 05/07/20 at 17:00 Sertraline HCl (Zoloft) 50 mg DAILY PO Last administered on 05/09/20at 08:44; Start 05/08/20 at 09:00; Stop 05/09/20 at 11:19; Status DC Amitriptyline HCl (Elavil) 50 mg QHS PO Last administered on 05/13/20at 20:48; Start 05/07/20 at 21:00 Acetaminophen (Tylenol) 325 mg PRN Q6HRS PRN PO MILD PAIN / TEMP > 100.3'F; Start 05/07/20 at 20:00 Iohexol (Omnipaque 300 Mg/ml) 75 ml 1X ONCE IV Last administered on 05/08/20at 13:30; Start 05/08/20 at 11:45; Stop 05/08/20 at 11:46; Status DC Info (CONTRAST GIVEN -- Rx MONITORING) 1 each PRN DAILY PRN MC SEE COMMENTS; Start 05/08/20 at 11:45; Stop 05/10/20 at 11:44; Status DC Tramadol HCl (Ultram) 50 mg TID PO Last administered on 05/09/20at 07:35; Start 05/08/20 at 14:00; Stop 05/09/20 at 11:15; Status DC Potassium Chloride (Klor-Con) 40 meq 1X ONCE PO Last administered on 05/08/20at 14:10; Start 05/08/20 at 12:15; Stop 05/08/20 at 12:16; Status DC Sodium Chloride 1,000 ml @ 60 mls/hr [id number] IV Last administered on 05/09/20at 07:36; Start 05/08/20 at 12:30; Stop 05/09/20 at 11:15; Status DC Amylase/Lipase/ Protease (Zenpep 5,000) 2 cap TIDWMEALS PO Last administered on 05/13/20at 16:46; Start 05/08/20 at 13:00 Phytonadione (Vitamin K Ampule) 2 mg 1X ONCE SQ Last administered on 05/09/20at 11:34; Start 05/09/20 at 11:00; Stop 05/09/20 at 11:01; Status DC Meropenem 1 gm/ Sodium Chloride 100 ml @ 200 mls/hr Q12HR IV Last administered on 05/14/20at 07:48; Start 05/09/20 at 11:30 Linezolid/Dextrose 300 ml @ 300 mls/hr Q12HR IV Last administered on 05/14/20at 08:54; Start 05/09/20 at 12:00 Acetaminophen/ Hydrocodone Bitart (Lortab 5/325) 1 tab PRN Q4HRS PRN PO MODERATE - SEVERE PAIN Last administered on 05/13/20at 17:04; Start 05/09/20 at 11:15 Vancomycin HCl (Vancomycin Oral Solution) 125 mg [id number] PO Last administered on 05/13/20at 20:52; Start 05/09/20 at 14:00 Lactobacillus Rhamnosus (Culturelle) 1 cap BID PO Last administered on 05/13/20at 20:48; Start 05/09/20 at 21:00 Lidocaine HCl (Buffered Lidocaine 1%) 3 ml STK-MED ONCE .ROUTE ; Start 05/10/20 at 08:09; Stop 05/10/20 at 08:09; Status DC Lidocaine HCl (Buffered Lidocaine 1%) 6 ml 1X ONCE INJ Last administered on 05/10/20at 08:15; Start 05/10/20 at 08:15; Stop 05/10/20 at 08:19; Status DC Lidocaine HCl (Buffered Lidocaine 1%) 3 ml 1X ONCE INJ ; Start 05/10/20 at 09:00; Stop 05/10/20 at 09:01; Status DC Potassium Chloride (Klor-Con) 20 meq 1X ONCE PO Last administered on 05/10/20at 10:29; Start 05/10/20 at 10:30; Stop 05/10/20 at 10:31; Status DC Levofloxacin/ Dextrose 100 ml @ 100 mls/hr 1X ONCE IV Last administered on 05/12/20at 14:15; Start 05/12/20 at 09:00; Stop 05/12/20 at 09:59; Status DC Ringer's Solution 1,000 ml @ 30 mls/hr Q24H IV Last administered on 05/12/20at 09:39; Start 05/12/20 at 07:00; Stop 05/12/20 at 18:59; Status DC Prochlorperazine Edisylate (Compazine) 5 mg PACU PRN PRN IV NAUSEA, MRX1; Start 05/12/20 at 07:00; Stop 05/13/20 at 06:59; Status DC Ringer's Solution 1,000 ml @ 75 mls/hr 1X ONCE IV Last administered on 05/12/20at 11:46; Start 05/12/20 at 07:30; Stop 05/12/20 at 20:49; Status DC Iohexol (Omnipaque 300 Mg/ml) 100 ml STK-MED ONCE .ROUTE ; Start 05/12/20 at 09:24; Stop 05/12/20 at 09:24; Status DC Propofol (Diprivan) 200 mg STK-MED ONCE IV ; Start 05/12/20 at 10:12; Stop 05/12/20 at 10:12; Status DC Succinylcholine Chloride (Anectine) 200 mg STK-MED ONCE .ROUTE ; Start 05/10/20 at 09:00; Stop 05/12/20 at 12:52; Status DC Ephedrine Sulfate (ePHEDrine PF IN SALINE SYRINGE) 50 mg STK-MED ONCE IV ; Start 05/10/20 at 09:00; Stop 05/12/20 at 12:52; Status DC Morphine Sulfate (Morphine Sulfate) 1 mg PRN Q4HRS PRN IV MODERATE PAIN Last administered on 05/13/20at 22:25; Start 05/12/20 at 13:15 Ondansetron HCl (Zofran) 4 mg PRN Q6HRS PRN IVP NAUSEA/VOMITING Last administered on 05/12/20at 13:25; Start 05/12/20 at 13:15 Tramadol HCl (Ultram) 50 mg TID PO Last administered on 05/13/20at 20:48; Start 05/12/20 at 14:00 Spironolactone (Aldactone) 50 mg BID PO Last administered on 05/13/20at 20:48; Start 05/13/20 at 12:00 Hydrocortisone Acetate (Anucort-Hc) 25 mg BID ND Last administered on 05/13/20at 20:47; Start 05/13/20 at 12:00 Active Scripts Active Tramadol Hcl 50 Mg Tablet 50 Mg PO TID Flagyl (Metronidazole) 500 Mg Tablet 500 Mg PO Q8HRS Cephalexin 250 Mg Capsule 500 Mg PO TID Zoloft (Sertraline Hcl) 50 Mg Tablet 50 Mg PO DAILY Reported Amitriptyline Hcl 50 Mg Tablet 50 Mg PO QHS Hydroxyzine Hcl 10 Mg Tablet 10 Mg PO PRN TID PRN Vitals/I & O Vital Sign - Last 24 Hours 05/13/20 05/13/20 05/13/20 05/13/20 11:00 15:00 18:04 19:55 Temp 97.8 98.3 98.4 97.8 98.3 98.4 Pulse 67 84 82 Resp 18 18 16 B/P (MAP) 108/59 (75) 110/67 (81) 103/65 (78) Pulse Ox 97 95 94 O2 Delivery Room Air Room Air Room Air Room Air 05/13/20 05/13/20 05/13/20 05/13/20 20:00 20:48 21:48 22:25 Resp 20 20 20 Pulse Ox 94 94 94 O2 Delivery Room Air Room Air Room Air Room Air 05/13/20 05/13/20 05/14/20 05/14/20 22:55 23:21 03:14 07:00 Temp 98.0 98.1 97.9 98.0 98.1 97.9 Pulse 80 78 89 Resp 20 16 16 18 B/P (MAP) 113/70 (84) 107/63 (78) 113/68 (83) Pulse Ox 95 94 O2 Delivery Room Air Room Air Room Air 05/14/20 08:00 O2 Delivery Room Air Intake and Output 05/13/20 05/13/20 05/14/20 14:59 22:59 06:59 Intake Total 0 ml 500 ml 0 ml Output Total 0 ml Balance 0 ml 500 ml 0 ml Justicifation of Admission Dx: Justifications for Admission: Justification of Admission Dx: Yes Nutrition Consultation Dietary Evaluation: Recommendations by RD: Dietary education by RD, Increase Calorie Intake, Protein supplementation Comments: diet education on low Na diet provided due to condition diet changed to low Na ( cardiac) due to ascites supplements added for extra kcal/ protein: ensure pudding and magic cup due to malnutrition appearance Expected Outcomes/Goals: to meet >75% est nutr needs Malnutrition Findings: Muscle Mass (Severe): Severe Depletion Weight Status: Underweight Fluid Accumulation (Severe): Severe SRINIVASA ABDULLAHI MD May 14, 2020 10:08
[2020-05-14] MEDS ORDERED: LIDOCAINE 1%/EPI 1:100,000 20 ML VIAL. ONE (10:55)
[2020-05-14] MEDS ORDERED: IOHEXOL 240 MG/ML 50ML VIAL. ONE (10:59)
[2020-05-14] MEDS ORDERED: fentaNYL PF VIAL 100 MCG/2 ML VIAL ONE ×2 (11:18→13:15)
[2020-05-14] MEDS ORDERED: MIDAZOLAM HCL/PF 5 MG/5 ML VIAL. ONE (11:18)
[2020-05-14] MEDS ORDERED: fentaNYL PF VIAL 100 MCG/2 ML VIAL IV ONE (11:45)
[2020-05-14] MEDS ORDERED: MIDAZOLAM HCL/PF 5 MG/5 ML VIAL. IV ONE (11:45)
[2020-05-14] MEDS ORDERED: LIDOCAINE 1%/EPI 1:100,000 20 ML VIAL. INJ ONE (11:45)
[2020-05-14] MEDS ORDERED: IOHEXOL 240 MG/ML 50ML VIAL. IJ ONE (11:45)
[2020-05-14] MEDS ORDERED: CONTRAST GIVEN. MC PRN (11:45)
[2020-05-14] MEDS ORDERED: IOHEXOL 300 MG/ML 100ML VIAL. ONE (13:27)
--- NOTE | 2020-05-14 14:34 | PDOC4 ---
PROCEDURE Procedure ERCP/dilate anastomotic stricture Ind: Anastomotic stricture (biliary) post-Whipple Meds: GETA Findings: (forward-viewing scope used) E--Distal esophagitis G--bilious fluid post PTC/catheter. D--catheter visualized in neoduodenum. --Biliary balloon (4mm) advanced over guidewire per radiology and placed across stricture. Dilated for 3 minutes x 2. Right system decompressed on fluoro; left still prominent. Elza. well. IMP: Biliary stricture, dilated. REC: follow LFT's. May need to repeat. SRINIVASA OTERO MD May 14, 2020 14:34
[2020-05-14] MEDS: MORPHINE SULFATE 2 MG/ML VIAL. IV PRN ×2 (15:08→19:51)
[2020-05-14] MEDS: HYDROcodone/APAP 5/325MG 1 TAB TABLET PO PRN (15:25)
[2020-05-14] MEDS: ONDANSETRON PF 4 MG/2 ML VIAL. IVP PRN ×2 (15:33→22:43)
--- NOTE | 2020-05-14 16:05 | RAD ---
05/14/2020 1:57 PM Procedure: 1. Placement of a tunneled peritoneal drainage catheter (Pleurx catheter) 2. Percutaneous transhepatic cholangiogram 3. Placement of a guidewire, via percutaneous biliary access, into the proximal small bowel in this patient who is status post Whipple Clinical Indication: Recurrent ascites, possibly malignant. 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 Prior failed ERCP Discussion: The procedure was explained in its entirety to the patient or the patients designated utility sales representative by a member of the treatment team, including a discussion of the risks, benefits and commonly accepted alternatives to the procedure, as well as the expected consequences of no therapy whatsoever. Discussion of the risks included, but was not limited to, those that are most frequent and those that are rare but possibly severe or life-threatening, as well as the possibility of unforeseen complications. All elements of maximal sterile barrier technique including the use of a cap, mask, sterile gown, sterile gloves, large sterile sheet, appropriate hand hygiene, and 2% chlorhexidine for cutaneous antisepsis (or acceptable alternative antiseptic per current guidelines) were followed for this procedure. Ultrasound demonstrates moderate ascites in the right lower quadrant. 1% lidocaine was administered for local anesthesia. She needle was advanced into the peritoneal space under direct ultrasound guidance. Reference ultrasound images were saved in the medical record. A tunneled drainage catheter was advanced from a small dermatotomy several centimeters anterior to this, to the peritoneal access site. A guidewire was advanced into the peritoneum over which, following dilatation, the peritoneal drainage catheter was delivered into the peritoneum. Several liters of somewhat bilious appearing ascites was removed. The catheter was secured. Sterile dressings were applied. No immediate complications were identified. Ultrasound evaluation of the liver demonstrates mild intrahepatic biliary ductal dilatation. The mildly prominent duct in the peripheral inferior right liver was selected. 1% lidocaine was administered for local anesthesia. In a single pass a 22-gauge needle was advanced into this duct. 4 [place] sheath was advanced over the wire into the biliary tree. Cholangiograms were obtained demonstrating biliary dilatation. A high-grade stricture at the choledochojejunostomy was again seen, similar configuration of prior MRCP imaging. Only minimal residual common bile duct was seen measuring approximately 1 cm in length. A guidewire was manipulated into the proximal jejunum. The sheath was advanced into the proximal jejunum. Both were secured in place and the patient was transferred to the GI/ERCP suite and stable condition. No immediate complications were identified. Total fluoroscopy time: 10.2 minutes Dose area product: 23 Gycm2 The procedures performed under conscious sedation including continuous cardiopulmonary monitoring via dedicated sedation nurse. [id number] sedation time: 77 minutes Impression: 1. Successful tunneled peritoneal drainage catheter placement 2. Percutaneous transhepatic cholangiogram demonstrates diffuse biliary dilatation and a high-grade stricture at the choledochojejunostomy. 3. Successful advancement of a guidewire across the strictured choledochojejunostomy in anticipation of subsequent ERCP with retrograde balloon dilatation and/or stenting
--- NOTE | 2020-05-14 16:52 | RAD ---
EXAM: ERCP. HISTORY: Hepaticojejunostomy stricture, jaundice. COMPARISON: 05/11/2020. FINDINGS: 2 fluoroscopic images of the biliary tree are obtained during ERCP. Fluoroscopy time 52 seconds. These demonstrate cannulation of the hepaticojejunostomy and injection of contrast. Refer to the operative report for full detail. Electronically signed by: Luc Castillo MD (05/14/2020 4:49 PM) [id number]
[2020-05-14] MEDS: AMITRIPTYLINE HCL 25 MG TABLET. PO SCH (19:53)
[2020-05-15] MEDS: HYDROcodone/APAP 5/325MG 1 TAB TABLET PO PRN (01:02)
[2020-05-15] MEDS: MORPHINE SULFATE 2 MG/ML VIAL. IV PRN ×2 (01:03→04:51)
[2020-05-15 03:00] VITALS: BP 104/58
[2020-05-15 04:44] LABS: BASO % 0 % (0-3); EOS % 0 % (0-3); HEMATOCRIT 26.3 % (36.0-47.0); HEMOGLOBIN 8.8 g/dL (12.0-15.5); LYMPH # 5.7 x10^3/uL (1.0-4.8); LYMPH % 61 % (24-48); MEAN CORPUSCULAR HEMOGLOBIN 30 pg (25-35); MEAN CORPUSCULAR HGB CONC 33 g/dL (31-37); MEAN CORPUSCULAR VOLUME 91 fL (79-100); MONO # 0.4 x10^3/uL (0.0-1.1); MONO % 4 % (0-9); NEUT # 3.1 x10^3/uL (1.8-7.7); NEUT % 34 % (31-73); PLATELET COUNT 461 x10^3/uL (140-400); WHITE BLOOD COUNT 9.3 x10^3/uL (4.0-11.0)
[2020-05-15] MEDS: ONDANSETRON PF 4 MG/2 ML VIAL. IVP PRN (04:53)
[2020-05-15 05:14] LABS: ALBUMIN 1.7 g/dL (3.4-5.0); CALCIUM 7.9 mg/dL (8.5-10.1); CREATININE 0.7 mg/dL (0.6-1.0); GFR 80.1; POTASSIUM 3.9 mmol/L (3.5-5.1); TOTAL BILIRUBIN 12.8 mg/dL (0.2-1.0); TOTAL PROTEIN 6.2 g/dL (6.4-8.2)
[2020-05-15 07:00] VITALS: BP 101/57
[2020-05-15] MEDS: MEROPENEM 1 GM in IV NORMAL SALINE 100ML 100 ML IV SCH (08:42)
[2020-05-15] MEDS: traMADol 50 MG TABLET PO SCH ×3 (08:43→21:00)
[2020-05-15] MEDS: SPIRONOLACTONE 25 MG TABLET PO SCH (08:43)
[2020-05-15] MEDS: LACTOBACILLUS RHAMNOSUS GG 1 CAPSULE. PO SCH ×2 (08:43→20:59)
[2020-05-15] MEDS: HYDROCORTISONE ACETATE 25 MG SUPP.RECT PR SCH ×2 (08:43→21:00)
--- NOTE | 2020-05-15 08:43 | PDOC ---
Infectious Disease Note Subjective Subjective A little uncomfortable but ok No F/c/S/N/V/d/SOA Vital Sign Vital Signs Vital Signs Date Time Temp Pulse Resp B/P (MAP) Pulse Ox O2 Delivery O2 Flow Rate FiO2 05/15/20 05:21 20 91 Room Air 05/15/20 03:00 98.4 89 104/58 (73) 98.4 05/14/20 14:40 2.0 Physical Exam PHYSICAL EXAM GENERAL: The patient is in bed and looks well. alert and smiling. HEENT: Scleral icterus. Oropharynx dry. No lesions seen. NECK: Supple. LUNGS: Clear to auscultation. HEART: S1 and S2. ABDOMEN: Distended, drain in place, bowel sounds present. Tender to deep palpation. No rebound. EXTREMITIES: No gross edema or cyanosis. SKIN: Warm to touch. No signs of rash. NEUROLOGIC: Alert and answering questions appropriately. Labs Lab Laboratory Tests Test 05/15/20 03:30 White Blood Count 9.3 x10^3/uL (4.0-11.0) Red Blood Count 2.90 x10^6/uL (3.50-5.40) Hemoglobin 8.8 g/dL (12.0-15.5) Hematocrit 26.3 % (36.0-47.0) Mean Corpuscular Volume 91 fL (79-100) Mean Corpuscular Hemoglobin 30 pg (25-35) Mean Corpuscular Hemoglobin Concent 33 g/dL (31-37) Red Cell Distribution Width 18.0 % (11.5-14.5) Platelet Count 461 x10^3/uL (140-400) Neutrophils (%) (Auto) 34 % (31-73) Lymphocytes (%) (Auto) 61 % (24-48) Monocytes (%) (Auto) 4 % (0-9) Eosinophils (%) (Auto) 0 % (0-3) Basophils (%) (Auto) 0 % (0-3) Neutrophils # (Auto) 3.1 x10^3/uL (1.8-7.7) Lymphocytes # (Auto) 5.7 x10^3/uL (1.0-4.8) Monocytes # (Auto) 0.4 x10^3/uL (0.0-1.1) Eosinophils # (Auto) 0.0 x10^3/uL (0.0-0.7) Basophils # (Auto) 0.0 x10^3/uL (0.0-0.2) Sodium Level 137 mmol/L (136-145) Potassium Level 3.9 mmol/L (3.5-5.1) Chloride Level 101 mmol/L (98-107) Carbon Dioxide Level 30 mmol/L (21-32) Anion Gap 6 (6-14) Blood Urea Nitrogen 10 mg/dL (7-20) Creatinine 0.7 mg/dL (0.6-1.0) Estimated GFR (Cockcroft-Gault) 80.1 Glucose Level 107 mg/dL (70-99) Calcium Level 7.9 mg/dL (8.5-10.1) Total Bilirubin 12.8 mg/dL (0.2-1.0) Direct Bilirubin 11.0 mg/dL (0.0-0.2) Aspartate Amino Transf (AST/SGOT) 203 U/L (15-37) Alanine Aminotransferase (ALT/SGPT) 78 U/L (14-59) Alkaline Phosphatase 1596 U/L (46-116) Total Protein 6.2 g/dL (6.4-8.2) Albumin 1.7 g/dL (3.4-5.0) Micro Impression: 1. Successful tunneled peritoneal drainage catheter placement 2. Percutaneous transhepatic cholangiogram demonstrates diffuse biliary dilatation and a high-grade stricture at the choledochojejunostomy. 3. Successful advancement of a guidewire across the strictured choledochojejunostomy in anticipation of subsequent ERCP with retrograde balloon dilatation and/or stenting MRCP 05/11 IMPRESSION: 1. 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 A postprocedural stricture is favored over tumor recurrence at this location. ERCP could further evaluate if there is persistent concern. 2. Dilated irregular pancreatic duct upstream from the pancreatic resection margin with pancreatic parenchymal atrophy. 3. Moderate ascites. Correlate for peritoneal metastatic disease. Ascitic fluid GRAM STAIN Final Final NO ORGANISMS SEEN. SQUAMOUS EPI CELL:NOT APPLICABLE PMN (WBCs):RARE Unless otherwise specified, Testing Performed by: [facility] [address] [place] [address] For Inquires, the Physician may contact the Microbiology department at [phone] Microbiology 05/10/20 Gram Stain - Final, Resulted 05/10/20 Aerobic and Anaerobic Culture - Preliminary, Resulted 05/09/20 Blood Culture - Preliminary, Resulted NO GROWTH AFTER 1 DAY Objective Assessment 1. Fever - better. 2. Leukocytosis - better. 3. Abdominal pain.s/p Paracentesis 1900 ml out 364 WBC 4. Ascites ? sec to obstruction. 5. Diarrhea. 6. Recent history of Clostridium difficile colitis on 04/14/2020. 7. Hyperbilirubinemia/transaminitis - ? post procedure 8. 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 She did not tolerate adjuvant chemotherapy. 9. Severe protein-calorie malnutrition. Plan Plan of Care Patient was stated on Zyvox and meropenem per primary 05/09 will d/c with neg cults add po vancomycin with recent h/o C. difficile wean soon Monitor labs/temp D/w nursing JERRELL GOODSON MD May 15, 2020 08:43
[2020-05-15] MEDS: VANCOMYCIN 125 MG/2.5 ML ORAL SOLUTION. PO SCH ×4 (08:44→21:00)
[2020-05-15 11:00] VITALS: BP 106/59
[2020-05-15 11:10] LABS: % LYMPHS 14 % (24-48); % MONOS 4 % (0-10); % SEGS 82 % (35-66); PLT ESTIMATE ADEQUATE (ADEQUATE)
[2020-05-15 11:11] LABS: TARGET CELLS MOD
[2020-05-15 11:12] LABS: OVALOCYTES OCC
--- NOTE | 2020-05-15 12:38 | PDOC ---
PROGRESS NOTES Date of Service DATE: 05/15/20 TIME: 12:34 Subjective Subjective feels the same. had dilatation of bile stricture yesterday with decompression of right biliary tree but not left. peritoneal catheter placed. lab reviewed. bilirubin higher 12. Objective Objective Vital Signs Date Time Temp Pulse Resp B/P (MAP) Pulse Ox O2 Delivery O2 Flow Rate FiO2 05/15/20 11:00 98.2 82 18 106/59 (75) 90 Room Air 98.2 05/14/20 14:40 2.0 Intake and Output 05/15/20 07:00 Intake Total 100 ml Output Total 475 ml Balance -375 ml Intake Oral 100 ml Output Urine Total 475 ml # Voids 1 Physical Exam Abdomen: Soft, Other (dry dressing right abdomen. 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 paracentesis 05/10/20. benign cells 4. Anemia. 5. Hypokalemia treated 6. Severe protein-calorie malnutrition. 7. Fibromyalgia. 8. Hypotension treated low grade fever resolved abdominal pain better hx of c,.diff bile duct stricture ballon dilatation 05/14 . left biliary tree still dilated Plan Plan of Care repeat LFT tomorrow may need another balloon dilatation of bile stricture oral vancomycin analgesics prn instruct patient on drainage of ascites with peritoneal catheter Comment Review of Relevant I have reviewed the following items betty (where applicable) has been applied. Labs Laboratory Tests Test 05/15/20 03:30 White Blood Count 9.3 x10^3/uL (4.0-11.0) Red Blood Count 2.90 x10^6/uL (3.50-5.40) Hemoglobin 8.8 g/dL (12.0-15.5) Hematocrit 26.3 % (36.0-47.0) Mean Corpuscular Volume 91 fL (79-100) Mean Corpuscular Hemoglobin 30 pg (25-35) Mean Corpuscular Hemoglobin Concent 33 g/dL (31-37) Red Cell Distribution Width 18.0 % (11.5-14.5) Platelet Count 461 x10^3/uL (140-400) Neutrophils (%) (Auto) 34 % (31-73) Lymphocytes (%) (Auto) 61 % (24-48) Monocytes (%) (Auto) 4 % (0-9) Eosinophils (%) (Auto) 0 % (0-3) Basophils (%) (Auto) 0 % (0-3) Neutrophils # (Auto) 3.1 x10^3/uL (1.8-7.7) Lymphocytes # (Auto) 5.7 x10^3/uL (1.0-4.8) Monocytes # (Auto) 0.4 x10^3/uL (0.0-1.1) Eosinophils # (Auto) 0.0 x10^3/uL (0.0-0.7) Basophils # (Auto) 0.0 x10^3/uL (0.0-0.2) Segmented Neutrophils % 82 % (35-66) Lymphocytes % 14 % (24-48) Monocytes % 4 % (0-10) Platelet Estimate Adequate (ADEQUATE) Target Cells Mod Ovalocytes Occ Sodium Level 137 mmol/L (136-145) Potassium Level 3.9 mmol/L (3.5-5.1) Chloride Level 101 mmol/L (98-107) Carbon Dioxide Level 30 mmol/L (21-32) Anion Gap 6 (6-14) Blood Urea Nitrogen 10 mg/dL (7-20) Creatinine 0.7 mg/dL (0.6-1.0) Estimated GFR (Cockcroft-Gault) 80.1 Glucose Level 107 mg/dL (70-99) Calcium Level 7.9 mg/dL (8.5-10.1) Total Bilirubin 12.8 mg/dL (0.2-1.0) Direct Bilirubin 11.0 mg/dL (0.0-0.2) Aspartate Amino Transf (AST/SGOT) 203 U/L (15-37) Alanine Aminotransferase (ALT/SGPT) 78 U/L (14-59) Alkaline Phosphatase 1596 U/L (46-116) Total Protein 6.2 g/dL (6.4-8.2) Albumin 1.7 g/dL (3.4-5.0) Laboratory Tests Test 05/15/20 03:30 White Blood Count 9.3 x10^3/uL (4.0-11.0) Red Blood Count 2.90 x10^6/uL (3.50-5.40) Hemoglobin 8.8 g/dL (12.0-15.5) Hematocrit 26.3 % (36.0-47.0) Mean Corpuscular Volume 91 fL (79-100) Mean Corpuscular Hemoglobin 30 pg (25-35) Mean Corpuscular Hemoglobin Concent 33 g/dL (31-37) Red Cell Distribution Width 18.0 % (11.5-14.5) Platelet Count 461 x10^3/uL (140-400) Neutrophils (%) (Auto) 34 % (31-73) Lymphocytes (%) (Auto) 61 % (24-48) Monocytes (%) (Auto) 4 % (0-9) Eosinophils (%) (Auto) 0 % (0-3) Basophils (%) (Auto) 0 % (0-3) Neutrophils # (Auto) 3.1 x10^3/uL (1.8-7.7) Lymphocytes # (Auto) 5.7 x10^3/uL (1.0-4.8) Monocytes # (Auto) 0.4 x10^3/uL (0.0-1.1) Eosinophils # (Auto) 0.0 x10^3/uL (0.0-0.7) Basophils # (Auto) 0.0 x10^3/uL (0.0-0.2) Segmented Neutrophils % 82 % (35-66) Lymphocytes % 14 % (24-48) Monocytes % 4 % (0-10) Platelet Estimate Adequate (ADEQUATE) Target Cells Mod Ovalocytes Occ Sodium Level 137 mmol/L (136-145) Potassium Level 3.9 mmol/L (3.5-5.1) Chloride Level 101 mmol/L (98-107) Carbon Dioxide Level 30 mmol/L (21-32) Anion Gap 6 (6-14) Blood Urea Nitrogen 10 mg/dL (7-20) Creatinine 0.7 mg/dL (0.6-1.0) Estimated GFR (Cockcroft-Gault) 80.1 Glucose Level 107 mg/dL (70-99) Calcium Level 7.9 mg/dL (8.5-10.1) Total Bilirubin 12.8 mg/dL (0.2-1.0) Direct Bilirubin 11.0 mg/dL (0.0-0.2) Aspartate Amino Transf (AST/SGOT) 203 U/L (15-37) Alanine Aminotransferase (ALT/SGPT) 78 U/L (14-59) Alkaline Phosphatase 1596 U/L (46-116) Total Protein 6.2 g/dL (6.4-8.2) Albumin 1.7 g/dL (3.4-5.0) Microbiology 05/10/20 Gram Stain - Final, Complete 05/10/20 Aerobic and Anaerobic Culture - Final, Complete 05/09/20 Blood Culture - Final, Complete NO GROWTH AFTER 5 DAYS Medications Current Medications Hydroxyzine HCl (Atarax) 10 mg PRN TID PRN PO ITCHING; Start 05/07/20 at 17:00 Sertraline HCl (Zoloft) 50 mg DAILY PO Last administered on 05/09/20at 08:44; Start 05/08/20 at 09:00; Stop 05/09/20 at 11:19; Status DC Amitriptyline HCl (Elavil) 50 mg QHS PO Last administered on 05/14/20at 19:53; Start 05/07/20 at 21:00 Acetaminophen (Tylenol) 325 mg PRN Q6HRS PRN PO MILD PAIN / TEMP > 100.3'F; Start 05/07/20 at 20:00 Iohexol (Omnipaque 300 Mg/ml) 75 ml 1X ONCE IV Last administered on 05/08/20at 13:30; Start 05/08/20 at 11:45; Stop 05/08/20 at 11:46; Status DC Info (CONTRAST GIVEN -- Rx MONITORING) 1 each PRN DAILY PRN MC SEE COMMENTS; Start 05/08/20 at 11:45; Stop 05/10/20 at 11:44; Status DC Tramadol HCl (Ultram) 50 mg TID PO Last administered on 05/09/20at 07:35; Start 05/08/20 at 14:00; Stop 05/09/20 at 11:15; Status DC Potassium Chloride (Klor-Con) 40 meq 1X ONCE PO Last administered on 05/08/20at 14:10; Start 05/08/20 at 12:15; Stop 05/08/20 at 12:16; Status DC Sodium Chloride 1,000 ml @ 60 mls/hr [id number] IV Last administered on 05/09/20at 07:36; Start 05/08/20 at 12:30; Stop 05/09/20 at 11:15; Status DC Amylase/Lipase/ Protease (Zenpep 5,000) 2 cap TIDWMEALS PO Last administered on 05/15/20at 12:20; Start 05/08/20 at 13:00 Phytonadione (Vitamin K Ampule) 2 mg 1X ONCE SQ Last administered on 05/09/20at 11:34; Start 05/09/20 at 11:00; Stop 05/09/20 at 11:01; Status DC Meropenem 1 gm/ Sodium Chloride 100 ml @ 200 mls/hr Q12HR IV Last administered on 05/15/20at 08:42; Start 05/09/20 at 11:30; Stop 05/15/20 at 09:01; Status DC Linezolid/Dextrose 300 ml @ 300 mls/hr Q12HR IV Last administered on 05/15/20at 08:42; Start 05/09/20 at 12:00; Stop 05/15/20 at 09:01; Status DC Acetaminophen/ Hydrocodone Bitart (Lortab 5/325) 1 tab PRN Q4HRS PRN PO MODERATE - SEVERE PAIN Last administered on 05/15/20at 01:02; Start 05/09/20 at 11:15 Vancomycin HCl (Vancomycin Oral Solution) 125 mg [id number] PO Last administered on 05/15/20at 12:19; Start 05/09/20 at 14:00 Lactobacillus Rhamnosus (Culturelle) 1 cap BID PO Last administered on 05/15/20at 08:43; Start 05/09/20 at 21:00 Lidocaine HCl (Buffered Lidocaine 1%) 3 ml STK-MED ONCE .ROUTE ; Start 05/10/20 at 08:09; Stop 05/10/20 at 08:09; Status DC Lidocaine HCl (Buffered Lidocaine 1%) 6 ml 1X ONCE INJ Last administered on 05/10/20at 08:15; Start 05/10/20 at 08:15; Stop 05/10/20 at 08:19; Status DC Lidocaine HCl (Buffered Lidocaine 1%) 3 ml 1X ONCE INJ ; Start 05/10/20 at 09:00; Stop 05/10/20 at 09:01; Status DC Potassium Chloride (Klor-Con) 20 meq 1X ONCE PO Last administered on 05/10/20at 10:29; Start 05/10/20 at 10:30; Stop 05/10/20 at 10:31; Status DC Levofloxacin/ Dextrose 100 ml @ 100 mls/hr 1X ONCE IV Last administered on 05/12/20at 14:15; Start 05/12/20 at 09:00; Stop 05/12/20 at 09:59; Status DC Ringer's Solution 1,000 ml @ 30 mls/hr Q24H IV Last administered on 05/12/20at 09:39; Start 05/12/20 at 07:00; Stop 05/12/20 at 18:59; Status DC Prochlorperazine Edisylate (Compazine) 5 mg PACU PRN PRN IV NAUSEA, MRX1; Sta rt 05/12/20 at 07:00; Stop 05/13/20 at 06:59; Status DC Ringer's Solution 1,000 ml @ 75 mls/hr 1X ONCE IV Last administered on 05/12/20at 11:46; Start 05/12/20 at 07:30; Stop 05/12/20 at 20:49; Status DC Iohexol (Omnipaque 300 Mg/ml) 100 ml STK-MED ONCE .ROUTE ; Start 05/12/20 at 09:24; Stop 05/12/20 at 09:24; Status DC Propofol (Diprivan) 200 mg STK-MED ONCE IV ; Start 05/12/20 at 10:12; Stop 05/12/20 at 10:12; Status DC Succinylcholine Chloride (Anectine) 200 mg STK-MED ONCE .ROUTE ; Start 05/10/20 at 09:00; Stop 05/12/20 at 12:52; Status DC Ephedrine Sulfate (ePHEDrine PF IN SALINE SYRINGE) 50 mg STK-MED ONCE IV ; Start 05/10/20 at 09:00; Stop 05/12/20 at 12:52; Status DC Morphine Sulfate (Morphine Sulfate) 1 mg PRN Q4HRS PRN IV MODERATE PAIN Last administered on 05/15/20at 04:51; Start 05/12/20 at 13:15 Ondansetron HCl (Zofran) 4 mg PRN Q6HRS PRN IVP NAUSEA/VOMITING Last administered on 05/15/20at 04:53; Start 05/12/20 at 13:15 Tramadol HCl (Ultram) 50 mg TID PO Last administered on 05/15/20 08:43; Start 05/12/20 at 14:00 Spironolactone (Aldactone) 50 mg BID PO Last administered on 05/15/20 08:43; Start 05/13/20 at 12:00 Hydrocortisone Acetate (Anucort-Hc) 25 mg BID SD Last administered on 05/15/20 08:43; Start 05/13/20 at 12:00 Lidocaine/ Epinephrine (LIDOCAINE 1%-EPI 1:100,000 Multi-Dose) 20 ml STK-MED ONCE .ROUTE ; Start 05/14/20 at 10:55; Stop 05/14/20 at 10:55; Status DC Iohexol (Omnipaque 240 Mg/ml) 50 ml STK-MED ONCE .ROUTE ; Start 05/14/20 at 10:59; Stop 05/14/20 at 11:00; Status DC Midazolam HCl (Versed) 5 mg STK-MED ONCE .ROUTE ; Start 05/14/20 at 11:18; Stop 05/14/20 at 11:18; Status DC Fentanyl Citrate (Fentanyl 2ml Vial) 100 mcg STK-MED ONCE .ROUTE ; Start 05/14/20 at 11:18; Stop 05/14/20 at 11:18; Status DC Midazolam HCl (Versed) 5 mg 1X ONCE IV Last administered on 05/14/20at 12:41; Start 05/14/20 at 11:45; Stop 05/14/20 at 11:46; Status DC Fentanyl Citrate (Fentanyl 2ml Vial) 100 mcg 1X ONCE IV Last administered on 05/14/20at 12:41; Start 05/14/20 at 11:45; Stop 05/14/20 at 11:46; Status DC Lidocaine/ Epinephrine (LIDOCAINE 1%-EPI 1:100,000 Multi-Dose) 20 ml 1X ONCE INJ Last administered on 05/14/20at 12:40; Start 05/14/20 at 11:45; Stop 05/14/20 at 11:46; Status DC Iohexol (Omnipaque 240 Mg/ml) 50 ml 1X ONCE IJ Last administered on 05/14/20at 12:40; Start 05/14/20 at 11:45; Stop 05/14/20 at 11:46; Status DC Info (CONTRAST GIVEN -- Rx MONITORING) 1 each PRN DAILY PRN MC SEE COMMENTS; Start 05/14/20 at 11:45; Stop 05/16/20 at 11:44 Fentanyl Citrate (Fentanyl 2ml Vial) 100 mcg STK-MED ONCE .ROUTE ; Start 05/14/20 at 13:15; Stop 05/14/20 at 13:15; Status DC Iohexol (Omnipaque 300 Mg/ml) 100 ml STK-MED ONCE .ROUTE ; Start 05/14/20 at 13:27; Stop 05/14/20 at 13:28; Status DC Active Scripts Active Tramadol Hcl 50 Mg Tablet 50 Mg PO TID Flagyl (Metronidazole) 500 Mg Tablet 500 Mg PO Q8HRS Cephalexin 250 Mg Capsule 500 Mg PO TID Zoloft (Sertraline Hcl) 50 Mg Tablet 50 Mg PO DAILY Reported Amitriptyline Hcl 50 Mg Tablet 50 Mg PO QHS Hydroxyzine Hcl 10 Mg Tablet 10 Mg PO PRN TID PRN Vitals/I & O Vital Sign - Last 24 Hours 05/14/20 05/14/20 05/14/20 05/14/20 12:41 13:00 13:05 14:40 Temp 97.0 97.5 97.0 97.5 Pulse 88 82 Resp 18 18 18 B/P (MAP) 134/65 Pulse Ox 98 96 99 O2 Delivery Nasal Cannula Room Air Room Air O2 Flow Rate 2.0 2.0 2.0 05/14/20 05/14/20 05/14/20 05/14/20 14:55 15:08 15:25 15:26 Pulse 85 Resp 18 20 16 16 B/P (MAP) 118/63 Pulse Ox 96 97 O2 Delivery Room Air Nasal Cannula Room Air Room Air Nasal Cannula 05/14/20 05/14/20 05/14/20 05/14/20 15:27 15:37 15:45 16:00 Temp 97.6 98.0 97.8 97.6 98.0 97.8 Pulse 88 88 89 Resp 20 16 18 20 B/P (MAP) 125/70 (88) 128/68 (88) 130/63 (85) Pulse Ox 94 93 O2 Delivery Room Air Room Air Room Air 05/14/20 05/14/20 05/14/20 05/14/20 16:19 16:19 16:45 17:00 Temp 98.1 98.1 Pulse 86 88 Resp 16 16 18 20 B/P (MAP) 135/75 (95) 132/70 (90) Pulse Ox 92 95 O2 Delivery Room Air Room Air Room Air Room Air 05/14/20 05/14/20 05/14/20 05/14/20 17:15 17:45 18:45 19:30 Temp 98.2 98.5 99.0 98.2 98.5 99.0 Pulse 88 86 90 89 Resp 16 16 16 16 B/P (MAP) 130/62 (84) 128/74 (92) 126/70 (88) 140/75 (96) Pulse Ox 93 93 93 93 O2 Delivery Room Air Room Air Room Air Room Air 05/14/20 05/14/20 05/14/20 05/14/20 19:51 20:00 20:21 21:28 Temp 98.2 98.2 Resp 20 20 Pulse Ox 93 93 O2 Delivery Room Air Room Air Room Air 05/14/20 05/14/20 05/14/20 05/15/20 21:47 22:45 22:47 01:02 Temp 98.4 98.4 Pulse 91 Resp 20 16 20 20 B/P (MAP) 123/65 (84) Pulse Ox 93 92 93 93 O2 Delivery Room Air Room Air Room Air Room Air 05/15/20 05/15/20 05/15/20 05/15/20 01:03 01:33 02:02 03:00 Temp 98.4 98.4 Pulse 89 Resp 20 20 20 16 B/P (MAP) 104/58 (73) Pulse Ox 93 93 93 91 O2 Delivery Room Air Room Air Room Air Room Air 05/15/20 05/15/20 05/15/20 05/15/20 04:51 05:21 07:00 08:00 Temp 98.8 98.8 Pulse 89 Resp 20 20 18 B/P (MAP) 101/57 (72) Pulse Ox 91 91 91 O2 Delivery Room Air Room Air Room Air Room Air 05/15/20 05/15/2020 08:43 09:43 11:00 Temp 98.2 98.2 Pulse 82 Resp 18 B/P (MAP) 106/59 (75) Pulse Ox 90 O2 Delivery Room Air Room Air Room Air Intake and Output 05/14/20 05/14/20 05/15/20 15:00 23:00 07:00 Intake Total 100 ml Output Total 250 ml 225 ml Balance -250 ml -125 ml Justicifation of Admission Dx: Justifications for Admission: Justification of Admission Dx: Yes Nutrition Consultation Dietary Evaluation: Recommendations by RD: Dietary education by RD, Increase Calorie Intake, Protein supplementation Comments: diet education on low Na diet provided due to condition diet changed to low Na ( cardiac) due to ascites supplements added for extra kcal/ protein: ensure pudding and magic cup due to malnutrition appearance Expected Outcomes/Goals: to meet >75% est nutr needs Malnutrition Findings: Muscle Mass (Severe): Severe Depletion Weight Status: Underweight Fluid Accumulation (Severe): Severe SRINIVASA ABDULLAHI MD May 15, 2020 12:38
--- NOTE | 2020-05-15 13:16 | PDOC ---
Date of Service: DATE: 05/15/20 TIME: 13:13 Subjective: Subjective: C/o pain overnight. ERCP/dilate anastomotic stricture yesterday. Bili up to 12.8 today Objective: Vital Signs: Vital Signs Date Time Temp Pulse Resp B/P (MAP) Pulse Ox O2 Delivery O2 Flow Rate FiO2 05/15/20 11:00 98.2 82 18 106/59 (75) 90 Room Air 98.2 05/14/20 14:40 2.0 Labs: Laboratory Tests Test 05/15/20 03:30 White Blood Count 9.3 x10^3/uL (4.0-11.0) Red Blood Count 2.90 x10^6/uL (3.50-5.40) Hemoglobin 8.8 g/dL (12.0-15.5) Hematocrit 26.3 % (36.0-47.0) Mean Corpuscular Volume 91 fL (79-100) Mean Corpuscular Hemoglobin 30 pg (25-35) Mean Corpuscular Hemoglobin Concent 33 g/dL (31-37) Red Cell Distribution Width 18.0 % (11.5-14.5) Platelet Count 461 x10^3/uL (140-400) Neutrophils (%) (Auto) 34 % (31-73) Lymphocytes (%) (Auto) 61 % (24-48) Monocytes (%) (Auto) 4 % (0-9) Eosinophils (%) (Auto) 0 % (0-3) Basophils (%) (Auto) 0 % (0-3) Neutrophils # (Auto) 3.1 x10^3/uL (1.8-7.7) Lymphocytes # (Auto) 5.7 x10^3/uL (1.0-4.8) Monocytes # (Auto) 0.4 x10^3/uL (0.0-1.1) Eosinophils # (Auto) 0.0 x10^3/uL (0.0-0.7) Basophils # (Auto) 0.0 x10^3/uL (0.0-0.2) Segmented Neutrophils % 82 % (35-66) Lymphocytes % 14 % (24-48) Monocytes % 4 % (0-10) Platelet Estimate Adequate (ADEQUATE) Target Cells Mod Ovalocytes Occ Sodium Level 137 mmol/L (136-145) Potassium Level 3.9 mmol/L (3.5-5.1) Chloride Level 101 mmol/L (98-107) Carbon Dioxide Level 30 mmol/L (21-32) Anion Gap 6 (6-14) Blood Urea Nitrogen 10 mg/dL (7-20) Creatinine 0.7 mg/dL (0.6-1.0) Estimated GFR (Cockcroft-Gault) 80.1 Glucose Level 107 mg/dL (70-99) Calcium Level 7.9 mg/dL (8.5-10.1) Total Bilirubin 12.8 mg/dL (0.2-1.0) Direct Bilirubin 11.0 mg/dL (0.0-0.2) Aspartate Amino Transf (AST/SGOT) 203 U/L (15-37) Alanine Aminotransferase (ALT/SGPT) 78 U/L (14-59) Alkaline Phosphatase 1596 U/L (46-116) Total Protein 6.2 g/dL (6.4-8.2) Albumin 1.7 g/dL (3.4-5.0) Physical Exam: Physical Exam: GEN: NAD, pleasant as always LUNGS: clear anteriorly HEART: RRR ABD: ascites SKIN: jaundice NEURO/PSYCH: A & O 3 Assessment & Plan: Assessment : A/P: H/o cholangiocarcinoma s/p Whipple, ascites, jaundice w/ stricture --Biliary balloon (4mm) advanced over guidewire per radiology and placed across stricture. Dilated for 3 minutes x 2. Right system decompressed on fluoro; left still prominent. Plan: May need repeat procedure given rise in bili. Will monitor tomorrow Justicifation of Admission Dx: Justifications for Admission: Justification of Admission Dx: Yes JUANA THOMAS MD May 15, 2020 13:16
[2020-05-15 15:00] VITALS: BP 89/51
[2020-05-15 19:00] VITALS: BP 106/63
[2020-05-15] MEDS: AMITRIPTYLINE HCL 25 MG TABLET. PO SCH (21:00)
[2020-05-15 23:00] VITALS: BP 112/69
[2020-05-16] MEDS: HYDROcodone/APAP 5/325MG 1 TAB TABLET PO PRN ×3 (01:37→18:37)
[2020-05-16 03:00] VITALS: BP 97/59
[2020-05-16 05:57] LABS: ALBUMIN 1.6 g/dL (3.4-5.0); DIRECT BILIRUBIN 10.4 mg/dL (0.0-0.2); TOTAL BILIRUBIN 12.3 mg/dL (0.2-1.0); TOTAL PROTEIN 5.5 g/dL (6.4-8.2)
[2020-05-16 07:00] VITALS: BP 102/63
[2020-05-16] MEDS: VANCOMYCIN 125 MG/2.5 ML ORAL SOLUTION. PO SCH ×4 (08:55→21:00)
[2020-05-16] MEDS: traMADol 50 MG TABLET PO SCH ×3 (08:55→21:00)
[2020-05-16] MEDS: LACTOBACILLUS RHAMNOSUS GG 1 CAPSULE. PO SCH ×2 (08:55→21:00)
[2020-05-16] MEDS: HYDROCORTISONE ACETATE 25 MG SUPP.RECT PR SCH ×2 (09:00→21:00)
--- NOTE | 2020-05-16 10:48 | PDOC ---
PROGRESS NOTES Date of Service DATE: 05/16/20 TIME: 10:44 Subjective Subjective not eating well. jaundiced. lab reviewed. bilirubin 12. has more ascites. systolic bp 102. 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 paracentesis 05/10/20. benign cells 4. Anemia. 5. Hypokalemia treated 6. Severe protein-calorie malnutrition. 7. Fibromyalgia. 8. Hypotension treated low grade fever resolved abdominal pain better hx of c,.diff bile duct stricture ballon dilatation 05/14 . left biliary tree still dilated Plan Plan of Care discussed with nurse to remove 1 liter of ascites via peritoneal catheter and to instruct patient and family on this. will order albumin 25 grams iv before the procedure labs tomorrow anticipate another attempt of balloon dilatation of bile stricture Comment Review of Relevant I have reviewed the following items betty (where applicable) has been applied. Labs Laboratory Tests Test 05/15/20 03:30 05/16/20 03:45 White Blood Count 9.3 x10^3/uL (4.0-11.0) Red Blood Count 2.90 x10^6/uL (3.50-5.40) Hemoglobin 8.8 g/dL (12.0-15.5) Hematocrit 26.3 % (36.0-47.0) Mean Corpuscular Volume 91 fL (79-100) Mean Corpuscular Hemoglobin 30 pg (25-35) Mean Corpuscular Hemoglobin Concent 33 g/dL (31-37) Red Cell Distribution Width 18.0 % (11.5-14.5) Platelet Count 461 x10^3/uL (140-400) Neutrophils (%) (Auto) 34 % (31-73) Lymphocytes (%) (Auto) 61 % (24-48) Monocytes (%) (Auto) 4 % (0-9) Eosinophils (%) (Auto) 0 % (0-3) Basophils (%) (Auto) 0 % (0-3) Neutrophils # (Auto) 3.1 x10^3/uL (1.8-7.7) Lymphocytes # (Auto) 5.7 x10^3/uL (1.0-4.8) Monocytes # (Auto) 0.4 x10^3/uL (0.0-1.1) Eosinophils # (Auto) 0.0 x10^3/uL (0.0-0.7) Basophils # (Auto) 0.0 x10^3/uL (0.0-0.2) Segmented Neutrophils % 82 % (35-66) Lymphocytes % 14 % (24-48) Monocytes % 4 % (0-10) Platelet Estimate Adequate (ADEQUATE) Target Cells Mod Ovalocytes Occ Sodium Level 137 mmol/L (136-145) Potassium Level 3.9 mmol/L (3.5-5.1) Chloride Level 101 mmol/L (98-107) Carbon Dioxide Level 30 mmol/L (21-32) Anion Gap 6 (6-14) Blood Urea Nitrogen 10 mg/dL (7-20) Creatinine 0.7 mg/dL (0.6-1.0) Estimated GFR (Cockcroft-Gault) 80.1 Glucose Level 107 mg/dL (70-99) Calcium Level 7.9 mg/dL (8.5-10.1) Total Bilirubin 12.8 mg/dL (0.2-1.0) 12.3 mg/dL (0.2-1.0) Direct Bilirubin 11.0 mg/dL (0.0-0.2) 10.4 mg/dL (0.0-0.2) Aspartate Amino Transf (AST/SGOT) 203 U/L (15-37) 163 U/L (15-37) Alanine Aminotransferase (ALT/SGPT) 78 U/L (14-59) 69 U/L (14-59) Alkaline Phosphatase 1596 U/L (46-116) 1312 U/L (46-116) Total Protein 6.2 g/dL (6.4-8.2) 5.5 g/dL (6.4-8.2) Albumin 1.7 g/dL (3.4-5.0) 1.6 g/dL (3.4-5.0) Laboratory Tests Test 05/16/20 03:45 Total Bilirubin 12.3 mg/dL (0.2-1.0) Direct Bilirubin 10.4 mg/dL (0.0-0.2) Aspartate Amino Transf (AST/SGOT) 163 U/L (15-37) Alanine Aminotransferase (ALT/SGPT) 69 U/L (14-59) Alkaline Phosphatase 1312 U/L (46-116) Total Protein 5.5 g/dL (6.4-8.2) Albumin 1.6 g/dL (3.4-5.0) Microbiology 05/10/20 Gram Stain - Final, Complete 05/10/20 Aerobic and Anaerobic Culture - Final, Complete 05/09/20 Blood Culture - Final, Complete NO GROWTH AFTER 5 DAYS Medications Current Medications Hydroxyzine HCl (Atarax) 10 mg PRN TID PRN PO ITCHING; Start 05/07/20 at 17:00 Sertraline HCl (Zoloft) 50 mg DAILY PO Last administered on 05/09/20at 08:44; Start 05/08/20 at 09:00; Stop 05/09/20 at 11:19; Status DC Amitriptyline HCl (Elavil) 50 mg QHS PO Last administered on 05/15/20at 21:00; Start 05/07/20 at 21:00 Acetaminophen (Tylenol) 325 mg PRN Q6HRS PRN PO MILD PAIN / TEMP > 100.3'F; Start 05/07/20 at 20:00 Iohexol (Omnipaque 300 Mg/ml) 75 ml 1X ONCE IV Last administered on 05/08/20at 13:30; Start 05/08/20 at 11:45; Stop 05/08/20 at 11:46; Status DC Info (CONTRAST GIVEN -- Rx MONITORING) 1 each PRN DAILY PRN MC SEE COMMENTS; Start 05/08/20 at 11:45; Stop 05/10/20 at 11:44; Status DC Tramadol HCl (Ultram) 50 mg TID PO Last administered on 05/09/20at 07:35; Start 05/08/20 at 14:00; Stop 05/09/20 at 11:15; Status DC Potassium Chloride (Klor-Con) 40 meq 1X ONCE PO Last administered on 05/08/20at 14:10; Start 05/08/20 at 12:15; Stop 05/08/20 at 12:16; Status DC Sodium Chloride 1,000 ml @ 60 mls/hr [id number] IV Last administered on 05/09/20at 07:36; Start 05/08/20 at 12:30; Stop 05/09/20 at 11:15; Status DC Amylase/Lipase/ Protease (Zenpep 5,000) 2 cap TIDWMEALS PO Last administered on 05/16/20at 08:55; Start 05/08/20 at 13:00 Phytonadione (Vitamin K Ampule) 2 mg 1X ONCE SQ Last administered on 05/09/20at 11:34; Start 05/09/20 at 11:00; Stop 05/09/20 at 11:01; Status DC Meropenem 1 gm/ Sodium Chloride 100 ml @ 200 mls/hr Q12HR IV Last administered on 05/15/20at 08:42; Start 05/09/20 at 11:30; Stop 05/15/20 at 09:01; Status DC Linezolid/Dextrose 300 ml @ 300 mls/hr Q12HR IV Last administered on 05/15/20at 08:42; Start 05/09/20 at 12:00; Stop 05/15/20 at 09:01; Status DC Acetaminophen/ Hydrocodone Bitart (Lortab 5/325) 1 tab PRN Q4HRS PRN PO MODERATE - SEVERE PAIN Last administered on 05/16/20at 06:08; Start 05/09/20 at 11:15 Vancomycin HCl (Vancomycin Oral Solution) 125 mg [id number] PO Last administered on 05/16/20at 08:55; Start 05/09/20 at 14:00 Lactobacillus Rhamnosus (Culturelle) 1 cap BID PO Last administered on 04/25 12/11at 08:55; Start 05/09/20 at 21:00 Lidocaine HCl (Buffered Lidocaine 1%) 3 ml STK-MED ONCE .ROUTE ; Start 05/10/20 at 08:09; Stop 05/10/20 at 08:09; Status DC Lidocaine HCl (Buffered Lidocaine 1%) 6 ml 1X ONCE INJ Last administered on 05/10/20at 08:15; Start 05/10/20 at 08:15; Stop 05/10/20 at 08:19; Status DC Lidocaine HCl (Buffered Lidocaine 1%) 3 ml 1X ONCE INJ ; Start 05/10/20 at 09:00; Stop 05/10/20 at 09:01; Status DC Potassium Chloride (Klor-Con) 20 meq 1X ONCE PO Last administered on 05/10/20at 10:29; Start 05/10/20 at 10:30; Stop 05/10/20 at 10:31; Status DC Levofloxacin/ Dextrose 100 ml @ 100 mls/hr 1X ONCE IV Last administered on 05/12/20at 14:15; Start 05/12/20 at 09:00; Stop 05/12/20 at 09:59; Status DC Ringer's Solution 1,000 ml @ 30 mls/hr Q24H IV Last administered on 05/12/20at 09:39; Start 05/12/20 at 07:00; Stop 05/12/20 at 18:59; Status DC Prochlorperazine Edisylate (Compazine) 5 mg PACU PRN PRN IV NAUSEA, MRX1; Start 05/12/20 at 07:00; Stop 05/13/20 at 06:59; Status DC Ringer's Solution 1,000 ml @ 75 mls/hr 1X ONCE IV Last administered on 05/12/20at 11:46; Start 05/12/20 at 07:30; Stop 05/12/20 at 20:49; Status DC Iohexol (Omnipaque 300 Mg/ml) 100 ml STK-MED ONCE .ROUTE ; Start 05/12/20 at 09:24; Stop 05/12/20 at 09:24; Status DC Propofol (Diprivan) 200 mg STK-MED ONCE IV ; Start 05/12/20 at 10:12; Stop 05/12/20 at 10:12; Status DC Succinylcholine Chloride (Anectine) 200 mg STK-MED ONCE .ROUTE ; Start 05/10/20 at 09:00; Stop 05/12/20 at 12:52; Status DC Ephedrine Sulfate (ePHEDrine PF IN SALINE SYRINGE) 50 mg STK-MED ONCE IV ; Start 05/10/20 at 09:00; Stop 05/12/20 at 12:52; Status DC Morphine Sulfate (Morphine Sulfate) 1 mg PRN Q4HRS PRN IV MODERATE PAIN Last administered on 05/15/20at 04:51; Start 05/12/20 at 13:15 Ondansetron HCl (Zofran) 4 mg PRN Q6HRS PRN IVP NAUSEA/VOMITING Last administered on 05/15/20at 04:53; Start 05/12/20 at 13:15 Tramadol HCl (Ultram) 50 mg TID PO Last administered on 05/16/20at 08:55; Start 05/12/20 at 14:00 Spironolactone (Aldactone) 50 mg BID PO Last administered on 05/15/20at 08:43; Start 05/13/20 at 12:00; Stop 05/15/20 at 12:34; Status DC Hydrocortisone Acetate (Anucort-Hc) 25 mg BID [place] Last administered on 05/15/20at 21:00; Start 05/13/20 at 12:00 Lidocaine/ Epinephrine (LIDOCAINE 1%-EPI 1:100,000 Multi-Dose) 20 ml STK-MED ONCE .ROUTE ; Start 05/14/20 at 10:55; Stop 05/14/20 at 10:55; Status DC Iohexol (Omnipaque 240 Mg/ml) 50 ml STK-MED ONCE .ROUTE ; Start 05/14/20 at 10:59; Stop 05/14/20 at 11:00; Status DC Midazolam HCl (Versed) 5 mg STK-MED ONCE .ROUTE ; Start 05/14/20 at 11:18; Stop 05/14/20 at 11:18; Status DC Fentanyl Citrate (Fentanyl 2ml Vial) 100 mcg STK-MED ONCE .ROUTE ; Start 05/14/20 at 11:18; Stop 05/14/20 at 11:18; Status DC Midazolam HCl (Versed) 5 mg 1X ONCE IV Last administered on 05/14/20at 12:41; Start 05/14/20 at 11:45; Stop 05/14/20 at 11:46; Status DC Fentanyl Citrate (Fentanyl 2ml Vial) 100 mcg 1X ONCE IV Last administered on 05/14/20at 12:41; Start 05/14/20 at 11:45; Stop 05/14/20 at 11:46; Status DC Lidocaine/ Epinephrine (LIDOCAINE 1%-EPI 1:100,000 Multi-Dose) 20 ml 1X ONCE INJ Last administered on 05/14/20at 12:40; Start 05/14/20 at 11:45; Stop 05/14/20 at 11:46; Status DC Iohexol (Omnipaque 240 Mg/ml) 50 ml 1X ONCE IJ Last administered on 05/14/20at 12:40; Start 05/14/20 at 11:45; Stop 05/14/20 at 11:46; Status DC Info (CONTRAST GIVEN -- Rx MONITORING) 1 each PRN DAILY PRN MC SEE COMMENTS; Start 05/14/20 at 11:45; Stop 05/16/20 at 11:44 Fentanyl Citrate (Fentanyl 2ml Vial) 100 mcg STK-MED ONCE .ROUTE ; Start 05/14/20 at 13:15; Stop 05/14/20 at 13:15; Status DC Iohexol (Omnipaque 300 Mg/ml) 100 ml STK-MED ONCE .ROUTE ; Start 05/14/20 at 13:27; Stop 05/14/20 at 13:28; Status DC Active Scripts Active Tramadol Hcl 50 Mg Tablet 50 Mg PO TID Flagyl (Metronidazole) 500 Mg Tablet 500 Mg PO Q8HRS Cephalexin 250 Mg Capsule 500 Mg PO TID Zoloft (Sertraline Hcl) 50 Mg Tablet 50 Mg PO DAILY Reported Amitriptyline Hcl 50 Mg Tablet 50 Mg PO QHS Hydroxyzine Hcl 10 Mg Tablet 10 Mg PO PRN TID PRN Vitals/I & O Vital Sign - Last 24 Hours 05/15/20 05/15/20 05/15/20 05/15/20 11:00 14:15 15:00 15:15 Temp 98.2 98.1 98.2 98.1 Pulse 82 74 Resp 18 18 B/P (MAP) 106/59 (75) 89/51 (64) Pulse Ox 90 95 O2 Delivery Room Air Room Air Room Air Room Air 05/15/20 05/15/20 05/15/20 05/15/20 19:00 19:40 21:00 22:00 Temp 98.7 98.7 Pulse 83 Resp 18 20 20 B/P (MAP) 106/63 (77) Pulse Ox 96 O2 Delivery Room Air Room Air Room Air Room Air 05/15/20 05/16/20 05/16/20 05/16/20 23:00 01:37 02:37 03:00 Temp 98.7 99.0 98.7 99.0 Pulse 87 83 Resp 18 20 20 18 B/P (MAP) 112/69 (83) 97/59 (72) Pulse Ox 97 94 O2 Delivery Room Air Room Air Room Air Room Air 05/16/20 05/16/20 05/16/20 05/16/20 06:08 07:00 07:08 08:00 Temp 98.6 98.6 Pulse 83 Resp 20 18 B/P (MAP) 102/63 (76) Pulse Ox 90 O2 Delivery Room Air Room Air Room Air Room Air 05/16/20 05/16/20 08:55 09:55 O2 Delivery Room Air Room Air Intake and Output 05/15/20 05/15/20 05/16/20 15:00 23:00 07:00 Intake Total 360 ml 120 ml 120 ml Balance 360 ml 120 ml 120 ml Justicifation of Admission Dx: Justifications for Admission: Justification of Admission Dx: Yes Nutrition Consultation Dietary Evaluation: Recommendations by RD: Dietary education by RD, Increase Calorie Intake, Protein supplementation Comments: diet education on low Na diet provided due to condition diet changed to low Na ( cardiac) due to ascites supplements added for extra kcal/ protein: ensure pudding and magic cup due to malnutrition appearance Expected Outcomes/Goals: to meet >75% est nutr needs Malnutrition Findings: Muscle Mass (Severe): Severe Depletion Weight Status: Underweight Fluid Accumulation (Severe): Severe SRINIVASA ABDULLAHI MD May 16, 2020 10:48
[2020-05-16 11:00] VITALS: BP 98/66
[2020-05-16] MEDS ORDERED: ALBUMIN HUMAN 25% 100 ML IV ONE (11:00)
--- NOTE | 2020-05-16 12:55 | PDOC ---
Date of Service: DATE: 05/16/20 TIME: 12:52 Subjective: Subjective: T bili now 12.3 (was 12.8 yesterday) Admits to fatigue Objective: Vital Signs: Vital Signs Date Time Temp Pulse Resp B/P (MAP) Pulse Ox O2 Delivery O2 Flow Rate FiO2 05/16/20 11:00 98.6 86 18 98/66 (77) 90 Room Air 98.6 Labs: Laboratory Tests Test 05/16/20 03:45 Total Bilirubin 12.3 mg/dL (0.2-1.0) Direct Bilirubin 10.4 mg/dL (0.0-0.2) Aspartate Amino Transf (AST/SGOT) 163 U/L (15-37) Alanine Aminotransferase (ALT/SGPT) 69 U/L (14-59) Alkaline Phosphatase 1312 U/L (46-116) Total Protein 5.5 g/dL (6.4-8.2) Albumin 1.6 g/dL (3.4-5.0) Physical Exam: Physical Exam: Physical Exam: Physical Exam: GEN: NAD, pleasant as always LUNGS: clear anteriorly HEART: RRR ABD: ascites SKIN: jaundice NEURO/PSYCH: A & O 3 Assessment & Plan: Assessment : A/P: H/o cholangiocarcinoma s/p Whipple, ascites, jaundice w/ stricture --Biliary balloon (4mm) advanced over guidewire per radiology and placed across stricture. Dilated for 3 minutes x 2. Right system decompressed on fluoro; left still prominent. Plan: May need repeat procedure given rise in bili. Will monitor tomorrow Justicifation of Admission Dx: Justifications for Admission: Justification of Admission Dx: Yes JUANA THOMAS MD May 16, 2020 12:55
[2020-05-16 15:00] VITALS: BP 96/59
[2020-05-16] MEDS: ONDANSETRON PF 4 MG/2 ML VIAL. IVP PRN (18:37)
[2020-05-16 19:00] VITALS: BP 134/73
[2020-05-16] MEDS: AMITRIPTYLINE HCL 25 MG TABLET. PO SCH (21:00)
[2020-05-16] MEDS: MORPHINE SULFATE 2 MG/ML VIAL. IV PRN (21:32)
[2020-05-16 23:00] VITALS: BP 139/73
[2020-05-17] VITALS (14 sets, daily range): BP systolic 100–140; BP diastolic 62–78
[2020-05-17] MEDS: ONDANSETRON PF 4 MG/2 ML VIAL. IVP PRN (00:43)
[2020-05-17] MEDS: MORPHINE SULFATE 2 MG/ML VIAL. IV PRN (03:58)
[2020-05-17] MEDS: HYDROCORTISONE ACETATE 25 MG SUPP.RECT PR SCH ×2 (07:19→21:32)
[2020-05-17 08:04] LABS: BASO # 0.1 x10^3/uL (0.0-0.2); BASO % 1 % (0-3); EOS # 0.1 x10^3/uL (0.0-0.7); EOS % 1 % (0-3); HEMATOCRIT 24.1 % (36.0-47.0); HEMOGLOBIN 8.2 g/dL (12.0-15.5); LYMPH # 5.5 x10^3/uL (1.0-4.8); LYMPH % 59 % (24-48); MEAN CORPUSCULAR HEMOGLOBIN 31 pg (25-35); MEAN CORPUSCULAR HGB CONC 34 g/dL (31-37); MEAN CORPUSCULAR VOLUME 91 fL (79-100); MONO # 0.3 x10^3/uL (0.0-1.1); MONO % 4 % (0-9); NEUT # 3.3 x10^3/uL (1.8-7.7); NEUT % 36 % (31-73); PLATELET COUNT 374 x10^3/uL (140-400); RED BLOOD COUNT 2.65 x10^6/uL (3.50-5.40); WHITE BLOOD COUNT 9.3 x10^3/uL (4.0-11.0)
[2020-05-17 08:46] LABS: ALBUMIN 1.6 g/dL (3.4-5.0); CALCIUM 7.8 mg/dL (8.5-10.1); CREATININE 0.7 mg/dL (0.6-1.0); DIRECT BILIRUBIN 12.1 mg/dL (0.0-0.2); GFR 80.1; POTASSIUM 4.1 mmol/L (3.5-5.1); TOTAL BILIRUBIN 14.3 mg/dL (0.2-1.0); TOTAL PROTEIN 6.1 g/dL (6.4-8.2)
--- NOTE | 2020-05-17 08:54 | PDOC ---
Infectious Disease Note Subjective Subjective A little uncomfortable but ok No F/c/S/N/V/d/SOA Vital Sign Vital Signs Vital Signs Date Time Temp Pulse Resp B/P (MAP) Pulse Ox O2 Delivery O2 Flow Rate FiO2 05/17/20 07:00 97.7 52 18 100/63 (75) 92 Room Air 97.7 Physical Exam PHYSICAL EXAM GENERAL: The patient is in bed and looks well. alert and smiling. HEENT: Scleral icterus. Oropharynx dry. No lesions seen. NECK: Supple. LUNGS: Clear to auscultation. HEART: S1 and S2. ABDOMEN: Distended, drain in place, bowel sounds present. Tender to deep palpation. No rebound. EXTREMITIES: No gross edema or cyanosis. SKIN: Warm to touch. No signs of rash. NEUROLOGIC: Alert and answering questions appropriately. Labs Lab Laboratory Tests Test 05/17/20 07:05 White Blood Count 9.3 x10^3/uL (4.0-11.0) Red Blood Count 2.65 x10^6/uL (3.50-5.40) Hemoglobin 8.2 g/dL (12.0-15.5) Hematocrit 24.1 % (36.0-47.0) Mean Corpuscular Volume 91 fL (79-100) Mean Corpuscular Hemoglobin 31 pg (25-35) Mean Corpuscular Hemoglobin Concent 34 g/dL (31-37) Red Cell Distribution Width 18.0 % (11.5-14.5) Platelet Count 374 x10^3/uL (140-400) Neutrophils (%) (Auto) 36 % (31-73) Lymphocytes (%) (Auto) 59 % (24-48) Monocytes (%) (Auto) 4 % (0-9) Eosinophils (%) (Auto) 1 % (0-3) Basophils (%) (Auto) 1 % (0-3) Neutrophils # (Auto) 3.3 x10^3/uL (1.8-7.7) Lymphocytes # (Auto) 5.5 x10^3/uL (1.0-4.8) Monocytes # (Auto) 0.3 x10^3/uL (0.0-1.1) Eosinophils # (Auto) 0.1 x10^3/uL (0.0-0.7) Basophils # (Auto) 0.1 x10^3/uL (0.0-0.2) Micro Microbiology 05/10/20 Gram Stain - Final, Complete 05/10/20 Aerobic and Anaerobic Culture - Final, Complete 05/09/20 Blood Culture - Final, Complete NO GROWTH AFTER 5 DAYS Objective Assessment 1. Fever - better. 2. Leukocytosis - better. 3. Abdominal pain.s/p Paracentesis 1900 ml out 364 WBC 4. Ascites ? sec to obstruction. 5. Diarrhea. 6. Recent history of Clostridium difficile colitis on 04/14/2020. 7. Hyperbilirubinemia/transaminitis - ? post procedure 8. 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 She did not tolerate adjuvant chemotherapy. 9. Severe protein-calorie malnutrition. Plan Plan of Care po vanc, bid for prevention of c diff recurrence Monitor labs/temp D/w nursing ERIN CANDELARIA MD May 17, 2020 08:54
[2020-05-17] MEDS: LACTOBACILLUS RHAMNOSUS GG 1 CAPSULE. PO SCH ×2 (09:00→21:32)
[2020-05-17] MEDS: VANCOMYCIN 125 MG/2.5 ML ORAL SOLUTION. PO SCH ×4 (09:00→21:31)
--- NOTE | 2020-05-17 09:28 | PDOC ---
Provider Note Provider Note IR NOTE PTC with wire access to small bowel via choledochojejunostomy on sunday. Abdominal drain also placed. Subsequent endoscopic balloon dilation of stricture at anastamosis. Unfortunately bili now even higher. Will repeat with placement of internal external drain today. Will need drainage for min 6 weeks, likely with either periodic catheter upsizing over a few months, or placement of a stent. There is some increase in risk of percutaneous access, due to ascites, even with drain in place. However there are no further endoscopic plans/options per GI, making biliary drain the next best choice. This was discussed with referring physicians, the patient and the family. DOMO CRUM MD May 17, 2020 09:28
[2020-05-17] MEDS: traMADol 50 MG TABLET PO SCH ×3 (10:13→21:31)
--- NOTE | 2020-05-17 10:41 | PDOC ---
PROGRESS NOTES Date of Service DATE: 05/17/20 TIME: 10:38 Subjective Subjective discussed with son who is a physician and at bedside,. feels the same. jaundiced bilirubin 12. Objective Objective Vital Signs Date Time Temp Pulse Resp B/P (MAP) Pulse Ox O2 Delivery O2 Flow Rate FiO2 05/17/20 10:13 Room Air 05/17/20 07:00 97.7 52 18 100/63 (75) 92 97.7 05/14/20 14:40 2.0 Intake and Output 05/17/20 07:00 Intake Total 420 ml Balance 420 ml Intake Oral 420 ml # Voids 5 Physical Exam Abdomen: Soft, Other (ascites. 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 paracentesis 05/10/20. benign cells 4. Anemia. 5. Hypokalemia treated 6. Severe protein-calorie malnutrition. 7. Fibromyalgia. 8. Hypotension treated low grade fever resolved abdominal pain better hx of c,.diff bile duct stricture ballon dilatation 05/14 . left biliary tree still dilated Plan Plan of Care replacement of esophageal stricture by IR today removal of 1 liter of ascites fluid today if bp allows with 25 grams IV albumin before it is done. family instruction of this. discussed with nurse Comment Review of Relevant I have reviewed the following items betty (where applicable) has been applied. Labs Laboratory Tests Test 05/16/20 03:45 05/17/20 07:05 Total Bilirubin 12.3 mg/dL (0.2-1.0) 14.3 mg/dL (0.2-1.0) Direct Bilirubin 10.4 mg/dL (0.0-0.2) 12.1 mg/dL (0.0-0.2) Aspartate Amino Transf (AST/SGOT) 163 U/L (15-37) 155 U/L (15-37) Alanine Aminotransferase (ALT/SGPT) 69 U/L (14-59) 70 U/L (14-59) Alkaline Phosphatase 1312 U/L (46-116) 1374 U/L (46-116) Total Protein 5.5 g/dL (6.4-8.2) 6.1 g/dL (6.4-8.2) Albumin 1.6 g/dL (3.4-5.0) 1.6 g/dL (3.4-5.0) White Blood Count 9.3 x10^3/uL (4.0-11.0) Red Blood Count 2.65 x10^6/uL (3.50-5.40) Hemoglobin 8.2 g/dL (12.0-15.5) Hematocrit 24.1 % (36.0-47.0) Mean Corpuscular Volume 91 fL (79-100) Mean Corpuscular Hemoglobin 31 pg (25-35) Mean Corpuscular Hemoglobin Concent 34 g/dL (31-37) Red Cell Distribution Width 18.0 % (11.5-14.5) Platelet Count 374 x10^3/uL (140-400) Neutrophils (%) (Auto) 36 % (31-73) Lymphocytes (%) (Auto) 59 % (24-48) Monocytes (%) (Auto) 4 % (0-9) Eosinophils (%) (Auto) 1 % (0-3) Basophils (%) (Auto) 1 % (0-3) Neutrophils # (Auto) 3.3 x10^3/uL (1.8-7.7) Lymphocytes # (Auto) 5.5 x10^3/uL (1.0-4.8) Monocytes # (Auto) 0.3 x10^3/uL (0.0-1.1) Eosinophils # (Auto) 0.1 x10^3/uL (0.0-0.7) Basophils # (Auto) 0.1 x10^3/uL (0.0-0.2) Sodium Level 134 mmol/L (136-145) Potassium Level 4.1 mmol/L (3.5-5.1) Chloride Level 99 mmol/L (98-107) Carbon Dioxide Level 31 mmol/L (21-32) Anion Gap 4 (6-14) Blood Urea Nitrogen 16 mg/dL (7-20) Creatinine 0.7 mg/dL (0.6-1.0) Estimated GFR (Cockcroft-Gault) 80.1 Glucose Level 124 mg/dL (70-99) Calcium Level 7.8 mg/dL (8.5-10.1) Laboratory Tests Test 05/17/20 07:05 White Blood Count 9.3 x10^3/uL (4.0-11.0) Red Blood Count 2.65 x10^6/uL (3.50-5.40) Hemoglobin 8.2 g/dL (12.0-15.5) Hematocrit 24.1 % (36.0-47.0) Mean Corpuscular Volume 91 fL (79-100) Mean Corpuscular Hemoglobin 31 pg (25-35) Mean Corpuscular Hemoglobin Concent 34 g/dL (31-37) Red Cell Distribution Width 18.0 % (11.5-14.5) Platelet Count 374 x10^3/uL (140-400) Neutrophils (%) (Auto) 36 % (31-73) Lymphocytes (%) (Auto) 59 % (24-48) Monocytes (%) (Auto) 4 % (0-9) Eosinophils (%) (Auto) 1 % (0-3) Basophils (%) (Auto) 1 % (0-3) Neutrophils # (Auto) 3.3 x10^3/uL (1.8-7.7) Lymphocytes # (Auto) 5.5 x10^3/uL (1.0-4.8) Monocytes # (Auto) 0.3 x10^3/uL (0.0-1.1) Eosinophils # (Auto) 0.1 x10^3/uL (0.0-0.7) Basophils # (Auto) 0.1 x10^3/uL (0.0-0.2) Sodium Level 134 mmol/L (136-145) Potassium Level 4.1 mmol/L (3.5-5.1) Chloride Level 99 mmol/L (98-107) Carbon Dioxide Level 31 mmol/L (21-32) Anion Gap 4 (6-14) Blood Urea Nitrogen 16 mg/dL (7-20) Creatinine 0.7 mg/dL (0.6-1.0) Estimated GFR (Cockcroft-Gault) 80.1 Glucose Level 124 mg/dL (70-99) Calcium Level 7.8 mg/dL (8.5-10.1) Total Bilirubin 14.3 mg/dL (0.2-1.0) Direct Bilirubin 12.1 mg/dL (0.0-0.2) Aspartate Amino Transf (AST/SGOT) 155 U/L (15-37) Alanine Aminotransferase (ALT/SGPT) 70 U/L (14-59) Alkaline Phosphatase 1374 U/L (46-116) Total Protein 6.1 g/dL (6.4-8.2) Albumin 1.6 g/dL (3.4-5.0) Microbiology 05/10/20 Gram Stain - Final, Complete 05/10/20 Aerobic and Anaerobic Culture - Final, Complete 05/09/20 Blood Culture - Final, Complete NO GROWTH AFTER 5 DAYS Medications Current Medications Hydroxyzine HCl (Atarax) 10 mg PRN TID PRN PO ITCHING; Start 05/07/20 at 17:00 Sertraline HCl (Zoloft) 50 mg DAILY PO Last administered on 05/09/20at 08:44; Start 05/08/20 at 09:00; Stop 05/09/20 at 11:19; Status DC Amitriptyline HCl (Elavil) 50 mg QHS PO Last administered on 05/15/20at 21:00; Start 05/07/20 at 21:00 Acetaminophen (Tylenol) 325 mg PRN Q6HRS PRN PO MILD PAIN / TEMP > 100.3'F; Start 05/07/20 at 20:00 Iohexol (Omnipaque 300 Mg/ml) 75 ml 1X ONCE IV Last administered on 05/08/20at 13:30; Start 05/08/20 at 11:45; Stop 05/08/20 at 11:46; Status DC Info (CONTRAST GIVEN -- Rx MONITORING) 1 each PRN DAILY PRN MC SEE COMMENTS; Start 05/08/20 at 11:45; Stop 05/10/20 at 11:44; Status DC Tramadol HCl (Ultram) 50 mg TID PO Last administered on 05/09/20at 07:35; Start 05/08/20 at 14:00; Stop 05/09/20 at 11:15; Status DC Potassium Chloride (Klor-Con) 40 meq 1X ONCE PO Last administered on 05/08/20at 14:10; Start 05/08/20 at 12:15; Stop 05/08/20 at 12:16; Status DC Sodium Chloride 1,000 ml @ 60 mls/hr [id number] IV Last administered on 05/09/20at 07:36; Start 05/08/20 at 12:30; Stop 05/09/20 at 11:15; Status DC Amylase/Lipase/ Protease (Zenpep 5,000) 2 cap TIDWMEALS PO Last administered on 05/16/20at 12:28; Start 05/08/20 at 13:00 Phytonadione (Vitamin K Ampule) 2 mg 1X ONCE SQ Last administered on 05/09/20at 11:34; Start 05/09/20 at 11:00; Stop 05/09/20 at 11:01; Status DC Meropenem 1 gm/ Sodium Chloride 100 ml @ 200 mls/hr Q12HR IV Last administered on 05/15/20at 08:42; Start 05/09/20 at 11:30; Stop 05/15/20 at 09:01; Status DC Linezolid/Dextrose 300 ml @ 300 mls/hr Q12HR IV Last administered on 05/15/20at 08:42; Start 05/09/20 at 12:00; Stop 05/15/20 at 09:01; Status DC Acetaminophen/ Hydrocodone Bitart (Lortab 5/325) 1 tab PRN Q4HRS PRN PO MODERATE - SEVERE PAIN Last administered on 05/16/20at 18:37; Start 05/09/20 at 11:15 Vancomycin HCl (Vancomycin Oral Solution) 125 mg [id number] PO Last administered on 05/16/20at 12:28; Start 05/09/20 at 14:00 Lactobacillus Rhamnosus (Culturelle) 1 cap BID PO Last administered on 05/16/20at 08:55; Start 05/09/20 at 21:00 Lidocaine HCl (Buffered Lidocaine 1%) 3 ml STK-MED ONCE .ROUTE ; Start 05/10/20 at 08:09; Stop 05/10/20 at 08:09; Status DC Lidocaine HCl (Buffered Lidocaine 1%) 6 ml 1X ONCE INJ Last administered on 05/10/20at 08:15; Start 05/10/20 at 08:15; Stop 05/10/20 at 08:19; Status DC Lidocaine HCl (Buffered Lidocaine 1%) 3 ml 1X ONCE INJ ; Start 05/10/20 at 09:00; Stop 05/10/20 at 09:01; Status DC Potassium Chloride (Klor-Con) 20 meq 1X ONCE PO Last administered on 05/10/20at 10:29; Start 05/10/20 at 10:30; Stop 05/10/20 at 10:31; Status DC Levofloxacin/ Dextrose 100 ml @ 100 mls/hr 1X ONCE IV Last administered on 05/12/20at 14:15; Start 05/12/20 at 09:00; Stop 05/12/20 at 09:59; Status DC Ringer's Solution 1,000 ml @ 30 mls/hr Q24H IV Last administered on 05/12/20at 09:39; Start 05/12/20 at 07:00; Stop 05/12/20 at 18:59; Status DC Prochlorperazine Edisylate (Compazine) 5 mg PACU PRN PRN IV NAUSEA, MRX1; Start 05/12/20 at 07:00; Stop 05/13/20 at 06:59; Status DC Ringer's Solution 1,000 ml @ 75 mls/hr 1X ONCE IV Last administered on 05/12/20at 11:46; Start 05/12/20 at 07:30; Stop 05/12/20 at 20:49; Status DC Iohexol (Omnipaque 300 Mg/ml) 100 ml STK-MED ONCE .ROUTE ; Start 05/12/20 at 09:24; Stop 05/12/20 at 09:24; Status DC Propofol (Diprivan) 200 mg STK-MED ONCE IV ; Start 05/12/20 at 10:12; Stop 05/12/20 at 10:12; Status DC Succinylcholine Chloride (Anectine) 200 mg STK-MED ONCE .ROUTE ; Start 05/10/20 at 09:00; Stop 05/12/20 at 12:52; Status DC Ephedrine Sulfate (ePHEDrine PF IN SALINE SYRINGE) 50 mg STK-MED ONCE IV ; Start 05/10/20 at 09:00; Stop 05/12/20 at 12:52; Status DC Morphine Sulfate (Morphine Sulfate) 1 mg PRN Q4HRS PRN IV PAIN Last administered on 05/17/20at 03:58; Start 05/12/20 at 13:15 Ondansetron HCl (Zofran) 4 mg PRN Q6HRS PRN IVP NAUSEA/VOMITING Last administered on 05/17/20at 00:43; Start 05/12/20 at 13:15 Tramadol HCl (Ultram) 50 mg TID PO Last administered on 05/17/20at 10:13; Start 05/12/20 at 14:00 Spironolactone (Aldactone) 50 mg BID PO Last administered on 05/15/20at 08:43; Start 05/13/20 at 12:00; Stop 05/15/20 at 12:34; Status DC Hydrocortisone Acetate (Anucort-Hc) 25 mg BID SC Last administered on 05/15/20at 21:00; Start 05/13/20 at 12:00 Lidocaine/ Epinephrine (LIDOCAINE 1%-EPI 1:100,000 Multi-Dose) 20 ml STK-MED ONCE .ROUTE ; Start 05/14/20 at 10:55; Stop 05/14/20 at 10:55; Status DC Iohexol (Omnipaque 240 Mg/ml) 50 ml STK-MED ONCE .ROUTE ; Start 05/14/20 at 10:59; Stop 05/14/20 at 11:00; Status DC Midazolam HCl (Versed) 5 mg STK-MED ONCE .ROUTE ; Start 05/14/20 at 11:18; Stop 05/14/20 at 11:18; Status DC Fentanyl Citrate (Fentanyl 2ml Vial) 100 mcg STK-MED ONCE .ROUTE ; Start 05/14/20 at 11:18; Stop 05/14/20 at 11:18; Status DC Midazolam HCl (Versed) 5 mg 1X ONCE IV Last administered on 05/14/20at 12:41; Start 05/14/20 at 11:45; Stop 05/14/20 at 11:46; Status DC Fentanyl Citrate (Fentanyl 2ml Vial) 100 mcg 1X ONCE IV Last administered on 05/14/20at 12:41; Start 05/14/20 at 11:45; Stop 05/14/20 at 11:46; Status DC Lidocaine/ Epinephrine (LIDOCAINE 1%-EPI 1:100,000 Multi-Dose) 20 ml 1X ONCE INJ Last administered on 05/14/20at 12:40; Start 05/14/20 at 11:45; Stop 05/14/20 at 11:46; Status DC Iohexol (Omnipaque 240 Mg/ml) 50 ml 1X ONCE IJ Last administered on 05/14/20at 12:40; Start 05/14/20 at 11:45; Stop 05/14/20 at 11:46; Status DC Info (CONTRAST GIVEN -- Rx MONITORING) 1 each PRN DAILY PRN MC SEE COMMENTS; Start 05/14/20 at 11:45; Stop 05/16/20 at 11:44; Status DC Fentanyl Citrate (Fentanyl 2ml Vial) 100 mcg STK-MED ONCE .ROUTE ; Start 05/14/20 at 13:15; Stop 05/14/20 at 13:15; Status DC Iohexol (Omnipaque 300 Mg/ml) 100 ml STK-MED ONCE .ROUTE ; Start 05/14/20 at 13:27; Stop 05/14/20 at 13:28; Status DC Albumin Human 100 ml @ 100 mls/hr 1X ONCE IV ; Start 05/16/20 at 11:00; Stop 05/16/20 at 11:59; Status DC Active Scripts Active Tramadol Hcl 50 Mg Tablet 50 Mg PO TID Flagyl (Metronidazole) 500 Mg Tablet 500 Mg PO Q8HRS Cephalexin 250 Mg Capsule 500 Mg PO TID Zoloft (Sertraline Hcl) 50 Mg Tablet 50 Mg PO DAILY Reported Amitriptyline Hcl 50 Mg Tablet 50 Mg PO QHS Hydroxyzine Hcl 10 Mg Tablet 10 Mg PO PRN TID PRN Vitals/I & O Vital Sign - Last 24 Hours 05/16/20 05/16/20 05/16/20 05/16/20 11:00 14:00 15:00 15:00 Temp 98.6 97.9 98.6 97.9 Pulse 86 84 Resp 18 18 B/P (MAP) 98/66 (77) 96/59 (71) Pulse Ox 90 90 O2 Delivery Room Air Room Air Room Air Room Air 05/16/20 05/16/20 05/16/20 05/16/20 18:37 19:00 19:37 20:00 Temp 98.7 98.7 Pulse 93 Resp 18 20 B/P (MAP) 134/73 (93) Pulse Ox 90 O2 Delivery Room Air Room Air Room Air Room Air 8/05/16/20 05/16/20 05/17/20 21:32 22:02 23:00 03:00 Temp 99.7 98.6 99.7 98.6 Pulse 95 88 Resp 20 18 18 B/P (MAP) 139/73 (95) 133/70 (91) Pulse Ox 91 92 O2 Delivery Room Air Room Air Room Air Room Air 05/17/20 05/17/20 05/17/20 05/17/20 03:58 04:28 07:00 10:13 Temp 97.7 97.7 Pulse 52 Resp 20 18 B/P (MAP) 100/63 (75) Pulse Ox 92 O2 Delivery Room Air Room Air Room Air Room Air Intake and Output 05/16/20 05/16/20 05/17/20 15:00 23:00 07:00 Intake Total 300 ml 120 ml Balance 300 ml 120 ml Nutrition Consultation Dietary Evaluation: Recommendations by RD: Dietary education by RD, Increase Calorie Intake, Protein supplementation Comments: diet education on low Na diet provided due to condition diet changed to low Na ( cardiac) due to ascites supplements added for extra kcal/ protein: ensure pudding and magic cup due to malnutrition appearance Expected Outcomes/Goals: to meet >75% est nutr needs Malnutrition Findings: Muscle Mass (Severe): Severe Depletion Weight Status: Underweight Fluid Accumulation (Severe): Severe SRINIVASA ABDULLAHI MD May 17, 2020 10:41
--- NOTE | 2020-05-17 12:07 | PDOC ---
Date of Service: DATE: 05/17/20 TIME: 12:02 Subjective: Subjective: Not feeling great but trying to hang in there. Abdomen is sore, food doesn't taste good, feels weak. Objective: Objective: Reviewed IR note - PTC with wire access to small bowel via choledochojejunostomy on Sunday. Abdominal drain also placed. Subsequent endoscopic balloon dilation of stricture at anastamosis. Unfortunately bili now even higher. Will repeat with placement of internal external drain today. Will need drainage for min 6 weeks, likely with either periodic catheter upsizing over a few months, or placement of a stent. There is some increase in risk of percutaneous access, due to ascites, even with drain in place. However there are no further endoscopic plans/options per GI, making biliary drain the next best choice. This was discussed with referring physicians, the patient and the family. Vital Signs: Vital Signs Date Time Temp Pulse Resp B/P (MAP) Pulse Ox O2 Delivery O2 Flow Rate FiO2 05/17/20 11:13 Room Air 05/17/20 11:00 97.8 87 18 105/63 (77) 96 97.8 Labs: Laboratory Tests Test 05/17/20 07:05 White Blood Count 9.3 x10^3/uL Red Blood Count 2.65 x10^6/uL Hemoglobin 8.2 g/dL Hematocrit 24.1 % Mean Corpuscular Volume 91 fL Mean Corpuscular Hemoglobin 31 pg Mean Corpuscular Hemoglobin Concent 34 g/dL Red Cell Distribution Width 18.0 % Platelet Count 374 x10^3/uL Neutrophils (%) (Auto) 36 % Lymphocytes (%) (Auto) 59 % Monocytes (%) (Auto) 4 % Eosinophils (%) (Auto) 1 % Basophils (%) (Auto) 1 % Neutrophils # (Auto) 3.3 x10^3/uL Lymphocytes # (Auto) 5.5 x10^3/uL Monocytes # (Auto) 0.3 x10^3/uL Eosinophils # (Auto) 0.1 x10^3/uL Basophils # (Auto) 0.1 x10^3/uL Sodium Level 134 mmol/L Potassium Level 4.1 mmol/L Chloride Level 99 mmol/L Carbon Dioxide Level 31 mmol/L Anion Gap 4 Blood Urea Nitrogen 16 mg/dL Creatinine 0.7 mg/dL Estimated GFR (Cockcroft-Gault) 80.1 Glucose Level 124 mg/dL Calcium Level 7.8 mg/dL Total Bilirubin 14.3 mg/dL Direct Bilirubin 12.1 mg/dL Aspartate Amino Transf (AST/SGOT) 155 U/L Alanine Aminotransferase (ALT/SGPT) 70 U/L Alkaline Phosphatase 1374 U/L Total Protein 6.1 g/dL Albumin 1.6 g/dL Imaging: ERCP/dilate anastomotic stricture 05/14/20 Ind: Anastomotic stricture (biliary) post-Whipple Meds: GETA Findings: (forward-viewing scope used) E--Distal esophagitis G--bilious fluid post PTC/catheter. D--catheter visualized in neoduodenum. --Biliary balloon (4mm) advanced over guidewire per radiology and placed across stricture. Dilated for 3 minutes x 2. Right system decompressed on fluoro; left still prominent. Elza. well. IMP: Biliary stricture, dilated. REC: follow LFT's. May need to repeat. PE: GEN: NAD LUNGS: CTAB HEART: RRR ABD: ascites, soft SKIN: +jaundice NEURO/PSYCH: A & O 3 A/P: Anastomotic stricture post Whipple -- IR plans as above, will follow. Justicifation of Admission Dx: Justifications for Admission: Justification of Admission Dx: Yes CORI PEDERSEN May 17, 2020 12:07
[2020-05-17] MEDS ORDERED: LIDOCAINE WITH 8.4% SOD BICARB 3 ML DISP.SYRIN. ONE (13:11)
[2020-05-17] MEDS ORDERED: IOHEXOL 240 MG/ML 50ML VIAL. ONE (13:15)
[2020-05-17] MEDS ORDERED: ALBUMIN HUMAN 25% 100 ML IV ONE ×2 (13:16→13:45)
[2020-05-17] MEDS ORDERED: MIDAZOLAM HCL/PF 2 MG/2 ML VIAL. ONE (13:16)
[2020-05-17] MEDS ORDERED: ceFAZolin SODIUM IV Push 1 GM VIAL. IVP ONE ×3 (13:16→13:45)
[2020-05-17] MEDS ORDERED: fentaNYL PF VIAL 100 MCG/2 ML VIAL ONE (13:17)
[2020-05-17] MEDS ORDERED: IOHEXOL 240 MG/ML 50ML VIAL. IJ ONE (13:45)
[2020-05-17] MEDS ORDERED: fentaNYL PF VIAL 100 MCG/2 ML VIAL IV ONE (13:45)
[2020-05-17] MEDS ORDERED: MIDAZOLAM HCL/PF 2 MG/2 ML VIAL. IV ONE (13:45)
[2020-05-17] MEDS ORDERED: LIDOCAINE WITH 8.4% SOD BICARB 3 ML DISP.SYRIN. IJ ONE (13:45)
[2020-05-17] MEDS ORDERED: CONTRAST GIVEN. MC PRN (14:00)
--- NOTE | 2020-05-17 14:54 | PDOC ---
Provider Note Provider Note IR External internal biliary drain placed without issue. Will keep to gravity until bilirubin normalizes. Flush with 10 cc NS TID until hemobilia resolves. If bili comes down adequately can cap drain to allow for internal drainage. Would keep draining pleurx daily for now. If less than 250 cc, could consider going every other day. Patient would benefit from home health to facilitate this. DOMO CRUM MD May 17, 2020 14:54
--- NOTE | 2020-05-17 16:20 | RAD ---
05/17/2020 2:14 PM Procedure: Ultrasound and fluoroscopically guided percutaneous transhepatic cholangiogram with subsequent placement of an external/internal biliary drainage catheter Clinical Indication: OBSTRUCTION Discussion: The procedure was explained in its entirety to the patient or the patients designated technical sales representative by a member of the treatment team, including a discussion of the risks, benefits and commonly accepted alternatives to the procedure, as well as the expected consequences of no therapy whatsoever. Discussion of the risks included, but was not limited to, those that are most frequent and those that are rare but possibly severe or life-threatening, as well as the possibility of unforeseen complications. All elements of maximal sterile barrier technique including the use of a cap, mask, sterile gown, sterile gloves, large sterile sheet, appropriate hand hygiene, and 2% chlorhexidine for cutaneous antisepsis (or acceptable alternative antiseptic per current guidelines) were followed for this procedure. The patient's pre-existing tunneled peritoneal drainage catheter was connected to suction. Approximately 2 L of peritoneal fluid was removed. Only scant residual peritoneal fluid was identified by ultrasound. Ultrasound demonstrates persistent dilatation of the biliary tree. 1% lidocaine was administered for local anesthesia. A 22-gauge needle was advanced into a peripheral inferior right hepatic biliary duct. A guidewire was manipulated centrally. Right [place] sheath was placed. A cholangiogram was obtained demonstrating no significant changes from prior exam. Persistent distal biliary stricture was seen. A guidewire was manipulated into the jejunum through the choledochojejunostomy. A 8 [place] internal/external biliary drain was then placed. This was found to decompress the biliary tree. The catheter secured in place and left to external drainage. No immediate complications were identified. Total fluoroscopy time: 8.3 min Dose area product: 23 Gycm2 The procedures performed under conscious sedation including continuous cardiopulmonary monitoring via dedicated sedation nurse. [id number] sedation time: 45 minutes Impression: Percutaneous transhepatic cholangiogram with placement of an 8 [place] internal/external biliary drain in this patient, who is status post Whipple procedure with persistent stricture at the choledochojejunostomy
--- NOTE | 2020-05-17 19:49 | NUR ---
Patient does not want to eat, patient nauseas. Vanco dose and other medications unable to give.
[2020-05-17] MEDS: AMITRIPTYLINE HCL 25 MG TABLET. PO SCH (21:31)
[2020-05-18 02:56] VITALS: BP 112/65
[2020-05-18] MEDS: MORPHINE SULFATE 2 MG/ML VIAL. IV PRN ×4 (03:18→19:49)
[2020-05-18] MEDS: ONDANSETRON PF 4 MG/2 ML VIAL. IVP PRN ×3 (03:18→19:48)
[2020-05-18 05:24] LABS: ALBUMIN 2.2 g/dL (3.4-5.0); CALCIUM 8.4 mg/dL (8.5-10.1); CREATININE 0.8 mg/dL (0.6-1.0); DIRECT BILIRUBIN 7.4 mg/dL (0.0-0.2); GFR 68.7; POTASSIUM 3.9 mmol/L (3.5-5.1); TOTAL BILIRUBIN 9.6 mg/dL (0.2-1.0); TOTAL PROTEIN 6.9 g/dL (6.4-8.2)
[2020-05-18 07:00] VITALS: BP 116/70
[2020-05-18] MEDS: traMADol 50 MG TABLET PO SCH ×3 (08:11→21:00)
[2020-05-18] MEDS: VANCOMYCIN 125 MG/2.5 ML ORAL SOLUTION. PO SCH ×4 (08:37→21:00)
[2020-05-18] MEDS: HYDROCORTISONE ACETATE 25 MG SUPP.RECT PR SCH ×2 (08:37→19:48)
[2020-05-18] MEDS: LACTOBACILLUS RHAMNOSUS GG 1 CAPSULE. PO SCH ×2 (08:37→21:00)
--- NOTE | 2020-05-18 08:57 | PDOC ---
Infectious Disease Note Subjective Subjective A little uncomfortable but ok No F/c/S/N/V/d/SOA Vital Sign Vital Signs Vital Signs Date Time Temp Pulse Resp B/P (MAP) Pulse Ox O2 Delivery O2 Flow Rate FiO2 05/18/20 08:44 Room Air 05/18/20 07:00 97.8 18 18 116/70 (85) 95 97.8 05/18/20 02:56 2.0 Physical Exam PHYSICAL EXAM GENERAL: The patient is in bed and looks well. alert and smiling. HEENT: Scleral icterus. Oropharynx dry. No lesions seen. NECK: Supple. LUNGS: Clear to auscultation. HEART: S1 and S2. ABDOMEN: Distended, drain in place, bowel sounds present. Tender to deep palpation. No rebound. EXTREMITIES: No gross edema or cyanosis. SKIN: Warm to touch. No signs of rash. NEUROLOGIC: Alert and answering questions appropriately. Labs Lab Laboratory Tests Test 05/18/20 03:40 Sodium Level 135 mmol/L (136-145) Potassium Level 3.9 mmol/L (3.5-5.1) Chloride Level 97 mmol/L (98-107) Carbon Dioxide Level 31 mmol/L (21-32) Anion Gap 7 (6-14) Blood Urea Nitrogen 16 mg/dL (7-20) Creatinine 0.8 mg/dL (0.6-1.0) Estimated GFR (Cockcroft-Gault) 68.7 Glucose Level 105 mg/dL (70-99) Calcium Level 8.4 mg/dL (8.5-10.1) Total Bilirubin 9.6 mg/dL (0.2-1.0) Direct Bilirubin 7.4 mg/dL (0.0-0.2) Aspartate Amino Transf (AST/SGOT) 102 U/L (15-37) Alanine Aminotransferase (ALT/SGPT) 56 U/L (14-59) Alkaline Phosphatase 1166 U/L (46-116) Total Protein 6.9 g/dL (6.4-8.2) Albumin 2.2 g/dL (3.4-5.0) Micro Microbiology 05/10/20 Gram Stain - Final, Complete 05/10/20 Aerobic and Anaerobic Culture - Final, Complete 05/09/20 Blood Culture - Final, Complete NO GROWTH AFTER 5 DAYS Objective Assessment 1. Fever - better. 2. Leukocytosis - better. 3. Abdominal pain.s/p Paracentesis 1900 ml out 364 WBC 4. Ascites ? sec to obstruction. 5. Diarrhea. 6. Recent history of Clostridium difficile colitis on 04/14/2020. 7. Hyperbilirubinemia/transaminitis - ? post procedure 8. 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 She did not tolerate adjuvant chemotherapy. 9. Severe protein-calorie malnutrition. Plan Plan of Care po vanc, bid for prevention of c diff recurrence Monitor labs/temp need comfort care D/w nursing will s/o, please call if questions ERIN CANDELARIA MD May 18, 2020 08:57
[2020-05-18 10:28] VITALS: BP 118/72
--- NOTE | 2020-05-18 10:41 | PDOC ---
PROGRESS NOTES Date of Service DATE: 05/18/20 TIME: 10:36 Subjective Subjective depressed and eating and drinking poorly. has pain unrelieved with 1 mg iv morphine. has 1.5 liters of bile output from external drain. bilirubin 9 Objective Objective Vital Signs Date Time Temp Pulse Resp B/P (MAP) Pulse Ox O2 Delivery O2 Flow Rate FiO2 05/18/20 10:28 97.7 91 18 118/72 (87) 94 Room Air 97.7 05/18/20 02:56 2.0 Intake and Output 05/18/20 07:00 Intake Total 120 ml Output Total 1940 ml Balance -1820 ml Intake Oral 120 ml Drainage Total 1000 ml Other 940 ml # Voids 1 Physical Exam Abdomen: Soft, Other (ascites. 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 paracentesis 05/10/20. benign cells 4. Anemia. 5. Hypokalemia treated 6. Severe protein-calorie malnutrition. 7. Fibromyalgia. 8. Hypotension treated low grade fever resolved abdominal pain better hx of c,.diff bile duct stricture ballon dilatation 05/14 . left biliary tree still dilated internal to external bile drain placed 05/17 pleurix tube placed for intermittent paracentesis depression Plan Plan of Care start iv fluids start mirtazepine for depression and to stimulate her appetite increase norco prn and increase prn iv morphine continuous external bile drainage paracentesis via pleurix as needed to be done by IR Comment Review of Relevant I have reviewed the following items betty (where applicable) has been applied. Labs Laboratory Tests Test 05/17/20 07:05 05/18/20 03:40 White Blood Count 9.3 x10^3/uL (4.0-11.0) Red Blood Count 2.65 x10^6/uL (3.50-5.40) Hemoglobin 8.2 g/dL (12.0-15.5) Hematocrit 24.1 % (36.0-47.0) Mean Corpuscular Volume 91 fL (79-100) Mean Corpuscular Hemoglobin 31 pg (25-35) Mean Corpuscular Hemoglobin Concent 34 g/dL (31-37) Red Cell Distribution Width 18.0 % (11.5-14.5) Platelet Count 374 x10^3/uL (140-400) Neutrophils (%) (Auto) 36 % (31-73) Lymphocytes (%) (Auto) 59 % (24-48) Monocytes (%) (Auto) 4 % (0-9) Eosinophils (%) (Auto) 1 % (0-3) Basophils (%) (Auto) 1 % (0-3) Neutrophils # (Auto) 3.3 x10^3/uL (1.8-7.7) Lymphocytes # (Auto) 5.5 x10^3/uL (1.0-4.8) Monocytes # (Auto) 0.3 x10^3/uL (0.0-1.1) Eosinophils # (Auto) 0.1 x10^3/uL (0.0-0.7) Basophils # (Auto) 0.1 x10^3/uL (0.0-0.2) Sodium Level 134 mmol/L (136-145) 135 mmol/L (136-145) Potassium Level 4.1 mmol/L (3.5-5.1) 3.9 mmol/L (3.5-5.1) Chloride Level 99 mmol/L (98-107) 97 mmol/L (98-107) Carbon Dioxide Level 31 mmol/L (21-32) 31 mmol/L (21-32) Anion Gap 4 (6-14) 7 (6-14) Blood Urea Nitrogen 16 mg/dL (7-20) 16 mg/dL (7-20) Creatinine 0.7 mg/dL (0.6-1.0) 0.8 mg/dL (0.6-1.0) Estimated GFR (Cockcroft-Gault) 80.1 68.7 Glucose Level 124 mg/dL (70-99) 105 mg/dL (70-99) Calcium Level 7.8 mg/dL (8.5-10.1) 8.4 mg/dL (8.5-10.1) Total Bilirubin 14.3 mg/dL (0.2-1.0) 9.6 mg/dL (0.2-1.0) Direct Bilirubin 12.1 mg/dL (0.0-0.2) 7.4 mg/dL (0.0-0.2) Aspartate Amino Transf (AST/SGOT) 155 U/L (15-37) 102 U/L (15-37) Alanine Aminotransferase (ALT/SGPT) 70 U/L (14-59) 56 U/L (14-59) Alkaline Phosphatase 1374 U/L (46-116) 1166 U/L (46-116) Total Protein 6.1 g/dL (6.4-8.2) 6.9 g/dL (6.4-8.2) Albumin 1.6 g/dL (3.4-5.0) 2.2 g/dL (3.4-5.0) Laboratory Tests Test 05/18/20 03:40 Sodium Level 135 mmol/L (136-145) Potassium Level 3.9 mmol/L (3.5-5.1) Chloride Level 97 mmol/L (98-107) Carbon Dioxide Level 31 mmol/L (21-32) Anion Gap 7 (6-14) Blood Urea Nitrogen 16 mg/dL (7-20) Creatinine 0.8 mg/dL (0.6-1.0) Estimated GFR (Cockcroft-Gault) 68.7 Glucose Level 105 mg/dL (70-99) Calcium Level 8.4 mg/dL (8.5-10.1) Total Bilirubin 9.6 mg/dL (0.2-1.0) Direct Bilirubin 7.4 mg/dL (0.0-0.2) Aspartate Amino Transf (AST/SGOT) 102 U/L (15-37) Alanine Aminotransferase (ALT/SGPT) 56 U/L (14-59) Alkaline Phosphatase 1166 U/L (46-116) Total Protein 6.9 g/dL (6.4-8.2) Albumin 2.2 g/dL (3.4-5.0) Microbiology 05/10/20 Gram Stain - Final, Complete 05/10/20 Aerobic and Anaerobic Culture - Final, Complete 05/09/20 Blood Culture - Final, Complete NO GROWTH AFTER 5 DAYS Medications Current Medications Hydroxyzine HCl (Atarax) 10 mg PRN TID PRN PO ITCHING; Start 05/07/20 at 17:00 Sertraline HCl (Zoloft) 50 mg DAILY PO Last administered on 05/09/20at 08:44; Start 05/08/20 at 09:00; Stop 05/09/20 at 11:19; Status DC Amitriptyline HCl (Elavil) 50 mg QHS PO Last administered on 05/17/20at 21:31; Start 05/07/20 at 21:00 Acetaminophen (Tylenol) 325 mg PRN Q6HRS PRN PO MILD PAIN / TEMP > 100.3'F; Start 05/07/20 at 20:00 Iohexol (Omnipaque 300 Mg/ml) 75 ml 1X ONCE IV Last administered on 05/08/20at 13:30; Start 05/08/20 at 11:45; Stop 05/08/20 at 11:46; Status DC Info (CONTRAST GIVEN -- Rx MONITORING) 1 each PRN DAILY PRN MC SEE COMMENTS; Start 05/08/20 at 11:45; Stop 05/10/20 at 11:44; Status DC Tramadol HCl (Ultram) 50 mg TID PO Last administered on 05/09/20at 07:35; Start 05/08/20 at 14:00; Stop 05/09/20 at 11:15; Status DC Potassium Chloride (Klor-Con) 40 meq 1X ONCE PO Last administered on 05/08/20at 14:10; Start 05/08/20 at 12:15; Stop 05/08/20 at 12:16; Status DC Sodium Chloride 1,000 ml @ 60 mls/hr [id number] IV Last administered on 05/09/20at 07:36; Start 05/08/20 at 12:30; Stop 05/09/20 at 11:15; Status DC Amylase/Lipase/ Protease (Zenpep 5,000) 2 cap TIDWMEALS PO Last administered on 05/16/20at 12:28; Start 05/08/20 at 13:00 Phytonadione (Vitamin K Ampule) 2 mg 1X ONCE SQ Last administered on 05/09/20at 11:34; Start 05/09/20 at 11:00; Stop 05/09/20 at 11:01; Status DC Meropenem 1 gm/ Sodium Chloride 100 ml @ 200 mls/hr Q12HR IV Last administered on 05/15/20at 08:42; Start 05/09/20 at 11:30; Stop 05/15/20 at 09:01; Status DC Linezolid/Dextrose 300 ml @ 300 mls/hr Q12HR IV Last administered on 05/15/20at 08:42; Start 05/09/20 at 12:00; Stop 05/15/20 at 09:01; Status DC Acetaminophen/ Hydrocodone Bitart (Lortab 5/325) 1 tab PRN Q4HRS PRN PO MODERATE - SEVERE PAIN Last administered on 05/16/20at 18:37; Start 05/09/20 at 11:15 Vancomycin HCl (Vancomycin Oral Solution) 125 mg [id number] PO Last administered on 05/17/20at 21:31; Start 05/09/20 at 14:00 Lactobacillus Rhamnosus (Culturelle) 1 cap BID PO Last administered on 05/17/20at 21:32; Start 05/09/20 at 21:00 Lidocaine HCl (Buffered Lidocaine 1%) 3 ml STK-MED ONCE .ROUTE ; Start 05/10/20 at 08:09; Stop 05/10/20 at 08:09; Status DC Lidocaine HCl (Buffered Lidocaine 1%) 6 ml 1X ONCE INJ Last administered on 05/10/20at 08:15; Start 05/10/20 at 08:15; Stop 05/10/20 at 08:19; Status DC Lidocaine HCl (Buffered Lidocaine 1%) 3 ml 1X ONCE INJ ; Start 05/10/20 at 09:00; Stop 05/10/20 at 09:01; Status DC Potassium Chloride (Klor-Con) 20 meq 1X ONCE PO Last administered on 05/10/20at 10:29; Start 05/10/20 at 10:30; Stop 05/10/20 at 10:31; Status DC Levofloxacin/ Dextrose 100 ml @ 100 mls/hr 1X ONCE IV Last administered on 05/12/20at 14:15; Start 05/12/20 at 09:00; Stop 05/12/20 at 09:59; Status DC Ringer's Solution 1,000 ml @ 30 mls/hr Q24H IV Last administered on 05/12/20at 09:39; Start 05/12/20 at 07:00; Stop 05/12/20 at 18:59; Status DC Prochlorperazine Edisylate (Compazine) 5 mg PACU PRN PRN IV NAUSEA, MRX1; Start 05/12/20 at 07:00; Stop 05/13/20 at 06:59; Status DC Ringer's Solution 1,000 ml @ 75 mls/hr 1X ONCE IV Last administered on 05/12/20at 11:46; Start 05/12/20 at 07:30; Stop 05/12/20 at 20:49; Status DC Iohexol (Omnipaque 300 Mg/ml) 100 ml STK-MED ONCE .ROUTE ; Start 05/12/20 at 09:24; Stop 05/12/20 at 09:24; Status DC Propofol (Diprivan) 200 mg STK-MED ONCE IV ; Start 05/12/20 at 10:12; Stop 05/12/20 at 10:12; Status DC Succinylcholine Chloride (Anectine) 200 mg STK-MED ONCE .ROUTE ; Start 05/10/20 at 09:00; Stop 05/12/20 at 12:52; Status DC Ephedrine Sulfate (ePHEDrine PF IN SALINE SYRINGE) 50 mg STK-MED ONCE IV ; Start 05/10/20 at 09:00; Stop 05/12/20 at 12:52; Status DC Morphine Sulfate (Morphine Sulfate) 1 mg PRN Q4HRS PRN IV PAIN Last administered on 05/18/20 08:14; Start 05/12/20 at 13:15 Ondansetron HCl (Zofran) 4 mg PRN Q6HRS PRN IVP NAUSEA/VOMITING Last administered on 05/18/20 03:18; Start 05/12/20 at 13:15 Tramadol HCl (Ultram) 50 mg TID PO Last administered on 05/18/20 08:11; Start 05/12/20 at 14:00 Spironolactone (Aldactone) 50 mg BID PO Last administered on 05/15/20 08:43; Start 05/13/20 at 12:00; Stop 05/15/20 at 12:34; Status DC Hydrocortisone Acetate (Anucort-Hc) 25 mg BID PA Last administered on 05/17/20at 21:32; Start 05/13/20 at 12:00 Lidocaine/ Epinephrine (LIDOCAINE 1%-EPI 1:100,000 Multi-Dose) 20 ml STK-MED O NCE .ROUTE ; Start 05/14/20 at 10:55; Stop 05/14/20 at 10:55; Status DC Iohexol (Omnipaque 240 Mg/ml) 50 ml STK-MED ONCE .ROUTE ; Start 05/14/20 at 10:59; Stop 05/14/20 at 11:00; Status DC Midazolam HCl (Versed) 5 mg STK-MED ONCE .ROUTE ; Start 05/14/20 at 11:18; Stop 05/14/20 at 11:18; Status DC Fentanyl Citrate (Fentanyl 2ml Vial) 100 mcg STK-MED ONCE .ROUTE ; Start 05/14/20 at 11:18; Stop 05/14/20 at 11:18; Status DC Midazolam HCl (Versed) 5 mg 1X ONCE IV Last administered on 05/14/20at 12:41; Start 05/14/20 at 11:45; Stop 05/14/20 at 11:46; Status DC Fentanyl Citrate (Fentanyl 2ml Vial) 100 mcg 1X ONCE IV Last administered on 05/14/20at 12:41; Start 05/14/20 at 11:45; Stop 05/14/20 at 11:46; Status DC Lidocaine/ Epinephrine (LIDOCAINE 1%-EPI 1:100,000 Multi-Dose) 20 ml 1X ONCE INJ Last administered on 05/14/20at 12:40; Start 05/14/20 at 11:45; Stop 05/14/20 at 11:46; Status DC Iohexol (Omnipaque 240 Mg/ml) 50 ml 1X ONCE IJ Last administered on 05/14/20at 12:40; Start 05/14/20 at 11:45; Stop 05/14/20 at 11:46; Status DC Info (CONTRAST GIVEN -- Rx MONITORING) 1 each PRN DAILY PRN MC SEE COMMENTS; Start 05/14/20 at 11:45; Stop 05/16/20 at 11:44; Status DC Fentanyl Citrate (Fentanyl 2ml Vial) 100 mcg STK-MED ONCE .ROUTE ; Start 05/14/20 at 13:15; Stop 05/14/20 at 13:15; Status DC Iohexol (Omnipaque 300 Mg/ml) 100 ml STK-MED ONCE .ROUTE ; Start 05/14/20 at 13:27; Stop 05/14/20 at 13:28; Status DC Albumin Human 100 ml @ 100 mls/hr 1X ONCE IV ; Start 05/16/20 at 11:00; Stop 05/16/20 at 11:59; Status DC Lidocaine HCl (Buffered Lidocaine 1%) 3 ml STK-MED ONCE .ROUTE ; Start 05/17/20 at 13:11; Stop 05/17/20 at 13:12; Status DC Iohexol (Omnipaque 240 Mg/ml) 50 ml STK-MED ONCE .ROUTE ; Start 05/17/20 at 13:15; Stop 05/17/20 at 13:16; Status DC Albumin Human 100 ml @ As Directed STK-MED ONCE IV ; Start 05/17/20 at 13:16; Stop 05/17/20 at 13:17; Status DC Cefazolin Sodium (Ancef) 1 gm STK-MED ONCE IVP ; Start 05/17/20 at 13:16; Stop 05/17/20 at 13:17; Status DC Midazolam HCl (Versed) 2 mg STK-MED ONCE .ROUTE ; Start 05/17/20 at 13:16; Stop 05/17/20 at 13:17; Status DC Fentanyl Citrate (Fentanyl 2ml Vial) 100 mcg STK-MED ONCE .ROUTE ; Start 05/17/20 at 13:17; Stop 05/17/20 at 13:17; Status DC Cefazolin Sodium (Ancef) 1 gm STK-MED ONCE IVP ; Start 05/17/20 at 13:17; Stop 05/17/20 at 13:17; Status DC Lidocaine HCl (Buffered Lidocaine 1%) 3 ml 1X ONCE IJ Last administered on 05/17/20at 13:45; Start 05/17/20 at 13:45; Stop 05/17/20 at 13:51; Status DC Midazolam HCl (Versed) 2 mg 1X ONCE IV Last administered on 05/17/20at 13:30; Start 05/17/20 at 13:45; Stop 05/17/20 at 13:51; Status DC Fentanyl Citrate (Fentanyl 2ml Vial) 100 mcg 1X ONCE IV Last administered on 05/17/20at 13:30; Start 05/17/20 at 13:45; Stop 05/17/20 at 13:51; Status DC Cefazolin Sodium (Ancef) 1 gm 1X ONCE IVP Last administered on 05/17/20at 13:55; Start 05/17/20 at 13:45; Stop 05/17/20 at 13:51; Status DC Albumin Human 100 ml @ 100 mls/hr 1X ONCE IV Last administered on 05/17/20at 13:45; Start 05/17/20 at 13:45; Stop 05/17/20 at 14:44; Status DC Iohexol (Omnipaque 240 Mg/ml) 50 ml 1X ONCE IJ Last administered on 05/17/20at 14:07; Start 05/17/20 at 13:45; Stop 05/17/20 at 13:51; Status DC Info (CONTRAST GIVEN -- Rx MONITORING) 1 each PRN DAILY PRN MC SEE COMMENTS; Start 05/17/20 at 14:00; Stop 05/19/20 at 13:59 Active Scripts Active Tramadol Hcl 50 Mg Tablet 50 Mg PO TID Flagyl (Metronidazole) 500 Mg Tablet 500 Mg PO Q8HRS Cephalexin 250 Mg Capsule 500 Mg PO TID Zoloft (Sertraline Hcl) 50 Mg Tablet 50 Mg PO DAILY Reported Amitriptyline Hcl 50 Mg Tablet 50 Mg PO QHS Hydroxyzine Hcl 10 Mg Tablet 10 Mg PO PRN TID PRN Vitals/I & O Vital Sign - Last 24 Hours 05/17/20 05/17/20 05/17/20 05/17/20 11:00 11:13 13:30 14:00 Temp 97.8 97.8 Pulse 87 Resp 18 15 B/P (MAP) 105/63 (77) Pulse Ox 96 O2 Delivery Room Air Room Air Nasal Cannula 05/17/20 05/17/20 05/17/20 05/17/20 14:20 14:30 14:43 14:45 Temp 98.0 98.0 98.0 98.0 Pulse 84 86 86 89 Resp 16 18 B/P (MAP) 138/71 (93) 138/71 (93) 130/70 (90) Pulse Ox 97 94 94 85 O2 Delivery Nasal Cannula Room Air Room Air Room Air O2 Flow Rate 2.0 2.0 05/17/20 05/17/20 05/17/20 05/17/20 15:00 15:06 15:15 15:30 Pulse 88 88 87 B/P (MAP) 129/67 (87) 138/69 (92) 139/77 (97) Pulse Ox 96 94 95 95 O2 Delivery Nasal Cannula Room Air Nasal Cannula Nasal Cannula O2 Flow Rate 2.0 2.0 2.0 2.0 05/17/20 05/17/20 05/17/20 05/17/20 16:00 16:06 16:30 19:00 Temp 98.9 98.9 Pulse 93 91 92 Resp 18 B/P (MAP) 123/65 (84) 113/74 (87) 115/67 (83) Pulse Ox 94 98 97 O2 Delivery Nasal Cannula Nasal Cannula Nasal Cannula Nasal Cannula O2 Flow Rate 2.0 2.0 2.0 05/17/20 05/17/20 05/17/20 05/17/20 20:00 21:31 22:31 22:41 Temp 98.5 98.5 Pulse 96 Resp 20 20 18 B/P (MAP) 106/62 (77) Pulse Ox 97 92 95 O2 Delivery Room Air Room Air Room Air Nasal Cannula O2 Flow Rate 2.0 05/18/20 05/18/20 05/18/20 05/18/20 02:56 03:18 03:44 07:00 Temp 98.4 97.8 98.4 97.8 Pulse 102 18 Resp 18 20 20 18 B/P (MAP) 112/65 (81) 116/70 (85) Pulse Ox 92 92 95 O2 Delivery Nasal Cannula Room Air Room Air Room Air O2 Flow Rate 2.0 05/18/20 05/18/20 05/18/20 05/18/20 08:00 08:11 08:14 08:44 O2 Delivery Room Air Room Air Room Air Room Air 05/18/20 05/18/20 09:11 10:28 Temp 97.7 97.7 Pulse 91 Resp 18 B/P (MAP) 118/72 (87) Pulse Ox 94 O2 Delivery Room Air Room Air Intake and Output 05/17/20 05/17/20 05/18/20 15:00 23:00 07:00 Intake Total 120 ml Output Total 1000 ml 630 ml 310 ml Balance -880 ml -630 ml -310 ml Nutrition Consultation Dietary Evaluation: Recommendations by RD: Dietary education by RD, Increase Calorie Intake, Protein supplementation Comments: diet education on low Na diet provided due to condition diet changed to low Na ( cardiac) due to ascites supplements added for extra kcal/ protein: ensure pudding and magic cup due to malnutrition appearance Expected Outcomes/Goals: to meet >75% est nutr needs Malnutrition Findings: Muscle Mass (Severe): Severe Depletion Weight Status: Underweight Fluid Accumulation (Severe): Severe SRINIVASA ABDULLAHI MD May 18, 2020 10:41
--- NOTE | 2020-05-18 11:58 | PDOC ---
Date of Service: DATE: 05/18/20 TIME: 11:54 Subjective: Subjective: Not feeling great - has nausea, no appetite, losing voice. Objective: Vital Signs: Vital Signs Date Time Temp Pulse Resp B/P (MAP) Pulse Ox O2 Delivery O2 Flow Rate FiO2 05/18/20 10:28 97.7 91 18 118/72 (87) 94 Room Air 97.7 05/18/20 02:56 2.0 Labs: Laboratory Tests Test 05/18/20 03:40 Sodium Level 135 mmol/L Potassium Level 3.9 mmol/L Chloride Level 97 mmol/L Carbon Dioxide Level 31 mmol/L Anion Gap 7 Blood Urea Nitrogen 16 mg/dL Creatinine 0.8 mg/dL Estimated GFR (Cockcroft-Gault) 68.7 Glucose Level 105 mg/dL Calcium Level 8.4 mg/dL Total Bilirubin 9.6 mg/dL Direct Bilirubin 7.4 mg/dL Aspartate Amino Transf (AST/SGOT) 102 U/L Alanine Aminotransferase (ALT/SGPT) 56 U/L Alkaline Phosphatase 1166 U/L Total Protein 6.9 g/dL Albumin 2.2 g/dL Imaging: Impression: Percutaneous transhepatic cholangiogram with placement of an 8 [place] internal/external biliary drain in this patient, who is status post Whipple procedure with 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 PE: GEN: chronically ill LUNGS: CTAB HEART: RRR ABD: soft NEURO/PSYCH: A & O 3, very pleasant as always A/P: S/p Whipple w/ choledochojejunostomy stricture s/p IR biliary drain placement Nausea -- Continue support - will add PPI w/ nausea issues. Justicifation of Admission Dx: Justifications for Admission: Justification of Admission Dx: Yes CORI PEDERSEN May 18, 2020 11:58
[2020-05-18] MEDS: HYDROcodone/APAP 10/325 1 TAB TABLET PO PRN (12:01)
[2020-05-18] MEDS: IV NORMAL SALINE 1000ML BAG 1,000 ML IV SCH (12:02)
[2020-05-18 15:00] VITALS: BP 114/72
[2020-05-18 19:00] VITALS: BP 126/71
[2020-05-18] MEDS: AMITRIPTYLINE HCL 25 MG TABLET. PO SCH (21:00)
[2020-05-18] MEDS: MIRTAZAPINE 7.5 MG TABLET. PO SCH (21:00)
[2020-05-18 23:00] VITALS: BP 121/69
[2020-05-19 03:00] VITALS: BP 113/66
[2020-05-19] MEDS: IV NORMAL SALINE 1000ML BAG 1,000 ML IV SCH (06:45)
[2020-05-19 07:00] VITALS: BP 102/64
[2020-05-19] MEDS ORDERED: PANTOPRAZOLE 40 MG TABLET.DR. PO SCH (07:30)
--- NOTE | 2020-05-19 08:25 | PDOC ---
PROGRESS NOTES Date of Service DATE: 05/19/20 TIME: 08:22 Subjective Subjective does not feel well. has a poor appetite. jaundiced. denies abdominal pain Objective Objective Vital Signs Date Time Temp Pulse Resp B/P (MAP) Pulse Ox O2 Delivery O2 Flow Rate FiO2 05/19/20 07:00 97.9 100 18 102/64 (77) 96 Room Air 97.9 05/18/20 02:56 2.0 Intake and Output 05/19/20 07:00 Intake Total 350 ml Output Total 1630 ml Balance -1280 ml Intake Oral 350 ml Drainage Total 1630 ml Physical Exam Abdomen: Soft, Other (ascites. 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 paracentesis 05/10/20. benign cells 4. Anemia. 5. Hypokalemia treated 6. Severe protein-calorie malnutrition. 7. Fibromyalgia. 8. Hypotension treated low grade fever resolved abdominal pain better hx of c,.diff bile duct stricture ballon dilatation 05/14 . left biliary tree still dilated internal to external bile drain placed 05/17 pleurix tube placed for intermittent paracentesis depression Plan Plan of Care continue iv fluids lab tomorrow defer to IR for drainage of ascites monitor bile drainage Comment Review of Relevant I have reviewed the following items betty (where applicable) has been applied. Labs Laboratory Tests Test 05/18/20 03:40 Sodium Level 135 mmol/L (136-145) Potassium Level 3.9 mmol/L (3.5-5.1) Chloride Level 97 mmol/L (98-107) Carbon Dioxide Level 31 mmol/L (21-32) Anion Gap 7 (6-14) Blood Urea Nitrogen 16 mg/dL (7-20) Creatinine 0.8 mg/dL (0.6-1.0) Estimated GFR (Cockcroft-Gault) 68.7 Glucose Level 105 mg/dL (70-99) Calcium Level 8.4 mg/dL (8.5-10.1) Total Bilirubin 9.6 mg/dL (0.2-1.0) Direct Bilirubin 7.4 mg/dL (0.0-0.2) Aspartate Amino Transf (AST/SGOT) 102 U/L (15-37) Alanine Aminotransferase (ALT/SGPT) 56 U/L (14-59) Alkaline Phosphatase 1166 U/L (46-116) Total Protein 6.9 g/dL (6.4-8.2) Albumin 2.2 g/dL (3.4-5.0) Microbiology 05/10/20 Gram Stain - Final, Complete 05/10/20 Aerobic and Anaerobic Culture - Final, Complete 05/09/20 Blood Culture - Final, Complete NO GROWTH AFTER 5 DAYS Medications Current Medications Hydroxyzine HCl (Atarax) 10 mg PRN TID PRN PO ITCHING Last administered on 05/18/20at 15:09; Start 05/07/20 at 17:00 Sertraline HCl (Zoloft) 50 mg DAILY PO Last administered on 05/09/20at 08:44; Start 05/08/20 at 09:00; Stop 05/09/20 at 11:19; Status DC Amitriptyline HCl (Elavil) 50 mg QHS PO Last administered on 05/17/20at 21:31; Start 05/07/20 at 21:00 Acetaminophen (Tylenol) 325 mg PRN Q6HRS PRN PO MILD PAIN / TEMP > 100.3'F; Start 05/07/20 at 20:00 Iohexol (Omnipaque 300 Mg/ml) 75 ml 1X ONCE IV Last administered on 05/08/20at 13:30; Start 05/08/20 at 11:45; Stop 05/08/20 at 11:46; Status DC Info (CONTRAST GIVEN -- Rx MONITORING) 1 each PRN DAILY PRN MC SEE COMMENTS; Start 05/08/20 at 11:45; Stop 05/10/20 at 11:44; Status DC Tramadol HCl (Ultram) 50 mg TID PO Last administered on 05/09/20at 07:35; Start 05/08/20 at 14:00; Stop 05/09/20 at 11:15; Status DC Potassium Chloride (Klor-Con) 40 meq 1X ONCE PO Last administered on 05/08/20at 14:10; Start 05/08/20 at 12:15; Stop 05/08/20 at 12:16; Status DC Sodium Chloride 1,000 ml @ 60 mls/hr [id number] IV Last administered on 05/09/20at 07:36; Start 05/08/20 at 12:30; Stop 05/09/20 at 11:15; Status DC Amylase/Lipase/ Protease (Zenpep 5,000) 2 cap TIDWMEALS PO Last administered on 05/16/20at 12:28; Start 05/08/20 at 13:00 Phytonadione (Vitamin K Ampule) 2 mg 1X ONCE SQ Last administered on 05/09/20at 11:34; Start 05/09/20 at 11:00; Stop 05/09/20 at 11:01; Status DC Meropenem 1 gm/ Sodium Chloride 100 ml @ 200 mls/hr Q12HR IV Last administered on 05/15/20at 08:42; Start 05/09/20 at 11:30; Stop 05/15/20 at 09:01; Status DC Linezolid/Dextrose 300 ml @ 300 mls/hr Q12HR IV Last administered on 05/15/20at 08:42; Start 05/09/20 at 12:00; Stop 05/15/20 at 09:01; Status DC Acetaminophen/ Hydrocodone Bitart (Lortab 5/325) 1 tab PRN Q4HRS PRN PO MODERATE - SEVERE PAIN Last administered on 05/16/20at 18:37; Start 05/09/20 at 11:15; Stop 05/18/20 at 10:35; Status DC Vancomycin HCl (Vancomycin Oral Solution) 125 mg [id number] PO Last administered on 05/17/20at 21:31; Start 05/09/20 at 14:00 Lactobacillus Rhamnosus (Culturelle) 1 cap BID PO Last administered on 05/17/20at 21:32; Start 05/09/20 at 21:00 Lidocaine HCl (Buffered Lidocaine 1%) 3 ml STK-MED ONCE .ROUTE ; Start 05/10/20 at 08:09; Stop 05/10/20 at 08:09; Status DC Lidocaine HCl (Buffered Lidocaine 1%) 6 ml 1X ONCE INJ Last administered on 05/10/20at 08:15; Start 05/10/20 at 08:15; Stop 05/10/20 at 08:19; Status DC Lidocaine HCl (Buffered Lidocaine 1%) 3 ml 1X ONCE INJ ; Start 05/10/20 at 09:00; Stop 05/10/20 at 09:01; Status DC Potassium Chloride (Klor-Con) 20 meq 1X ONCE PO Last administered on 05/10/20at 10:29; Start 05/10/20 at 10:30; Stop 05/10/20 at 10:31; Status DC Levofloxacin/ Dextrose 100 ml @ 100 mls/hr 1X ONCE IV Last administered on 05/12/20at 14:15; Start 05/12/20 at 09:00; Stop 05/12/20 at 09:59; Status DC Ringer's Solution 1,000 ml @ 30 mls/hr Q24H IV Last administered on 05/12/20at 09:39; Start 05/12/20 at 07:00; Stop 05/12/20 at 18:59; Status DC Prochlorperazine Edisylate (Compazine) 5 mg PACU PRN PRN IV NAUSEA, MRX1; Start 05/12/20 at 07:00; Stop 05/13/20 at 06:59; Status DC Ringer's Solution 1,000 ml @ 75 mls/hr 1X ONCE IV Last administered on 05/12/20at 11:46; Start 05/12/20 at 07:30; Stop 05/12/20 at 20:49; Status DC Iohexol (Omnipaque 300 Mg/ml) 100 ml STK-MED ONCE .ROUTE ; Start 05/12/20 at 09:24; Stop 05/12/20 at 09:24; Status DC Propofol (Diprivan) 200 mg STK-MED ONCE IV ; Start 05/12/20 at 10:12; Stop 05/12/20 at 10:12; Status DC Succinylcholine Chloride (Anectine) 200 mg STK-MED ONCE .ROUTE ; Start 05/10/20 at 09:00; Stop 05/12/20 at 12:52; Status DC Ephedrine Sulfate (ePHEDrine PF IN SALINE SYRINGE) 50 mg STK-MED ONCE IV ; St art 05/10/20 at 09:00; Stop 05/12/20 at 12:52; Status DC Morphine Sulfate (Morphine Sulfate) 1 mg PRN Q4HRS PRN IV PAIN Last ad ministered on 05/18/20at 08:14; Start 05/12/20 at 13:15; Stop 05/18/20 at 10:35; Status DC Ondansetron HCl (Zofran) 4 mg PRN Q6HRS PRN IVP NAUSEA/VOMITING Last administered on 05/18/20 19:48; Start 05/12/20 at 13:15 Tramadol HCl (Ultram) 50 mg TID PO Last administered on 05/18/20at 08:11; Start 05/12/20 at 14:00 Spironolactone (Aldactone) 50 mg BID PO Last administered on 05/15/20at 08:43; Start 05/13/20 at 12:00; Stop 05/15/20 at 12:34; Status DC Hydrocortisone Acetate (Anucort-Hc) 25 mg BID AK Last administered on 05/18/20at 19:48; Start 05/13/20 at 12:00 Lidocaine/ Epinephrine (LIDOCAINE 1%-EPI 1:100,000 Multi-Dose) 20 ml STK-MED ONCE .ROUTE ; Start 05/14/20 at 10:55; Stop 05/14/20 at 10:55; Status DC Iohexol (Omnipaque 240 Mg/ml) 50 ml STK-MED ONCE .ROUTE ; Start 05/14/20 at 10:59; Stop 05/14/20 at 11:00; Status DC Midazolam HCl (Versed) 5 mg STK-MED ONCE .ROUTE ; Start 05/14/20 at 11:18; Stop 05/14/20 at 11:18; Status DC Fentanyl Citrate (Fentanyl 2ml Vial) 100 mcg STK-MED ONCE .ROUTE ; Start 05/14 at 11:18; Stop 05/14/20 at 11:18; Status DC Midazolam HCl (Versed) 5 mg 1X ONCE IV Last administered on 05/14/20at 12:41; Start 05/14/20 at 11:45; Stop 05/14/20 at 11:46; Status DC Fentanyl Citrate (Fentanyl 2ml Vial) 100 mcg 1X ONCE IV Last administered on 05/14/20at 12:41; Start 05/14/20 at 11:45; Stop 05/14/20 at 11:46; Status DC Lidocaine/ Epinephrine (LIDOCAINE 1%-EPI 1:100,000 Multi-Dose) 20 ml 1X ONCE INJ Last administered on 05/14/20at 12:40; Start 05/14/20 at 11:45; Stop 05/14/20 at 11:46; Status DC Iohexol (Omnipaque 240 Mg/ml) 50 ml 1X ONCE IJ Last administered on 05/14/20at 12:40; Start 05/14/20 at 11:45; Stop 05/14/20 at 11:46; Status DC Info (CONTRAST GIVEN -- Rx MONITORING) 1 each PRN DAILY PRN MC SEE COMMENTS; Start 05/14/20 at 11:45; Stop 05/16/20 at 11:44; Status DC Fentanyl Citrate (Fentanyl 2ml Vial) 100 mcg STK-MED ONCE .ROUTE ; Start 05/14/20 at 13:15; Stop 05/14/20 at 13:15; Status DC Iohexol (Omnipaque 300 Mg/ml) 100 ml STK-MED ONCE .ROUTE ; Start 05/14/20 at 13:27; Stop 05/14/20 at 13:28; Status DC Albumin Human 100 ml @ 100 mls/hr 1X ONCE IV ; Start 05/16/20 at 11:00; Stop 05/16/20 at 11:59; Status DC Lidocaine HCl (Buffered Lidocaine 1%) 3 ml STK-MED ONCE .ROUTE ; Start 05/17/20 at 13:11; Stop 05/17/20 at 13:12; Status DC Iohexol (Omnipaque 240 Mg/ml) 50 ml STK-MED ONCE .ROUTE ; Start 05/17/20 at 13:15; Stop 05/17/20 at 13:16; Status DC Albumin Human 100 ml @ As Directed STK-MED ONCE IV ; Start 05/17/20 at 13:16; Stop 05/17/20 at 13:17; Status DC Cefazolin Sodium (Ancef) 1 gm STK-MED ONCE IVP ; Start 05/17/20 at 13:16; Stop 05/17/20 at 13:17; Status DC Midazolam HCl (Versed) 2 mg STK-MED ONCE .ROUTE ; Start 05/17/20 at 13:16; Stop 05/17/20 at 13:17; Status DC Fentanyl Citrate (Fentanyl 2ml Vial) 100 mcg STK-MED ONCE .ROUTE ; Start 05/17/20 at 13:17; Stop 05/17/20 at 13:17; Status DC Cefazolin Sodium (Ancef) 1 gm STK-MED ONCE IVP ; Start 05/17/20 at 13:17; Stop 05/17/20 at 13:17; Status DC Lidocaine HCl (Buffered Lidocaine 1%) 3 ml 1X ONCE IJ Last administered on 05/17/20at 13:45; Start 05/17/20 at 13:45; Stop 05/17/20 at 13:51; Status DC Midazolam HCl (Versed) 2 mg 1X ONCE IV Last administered on 05/17/20at 13:30; Start 05/17/20 at 13:45; Stop 05/17/20 at 13:51; Status DC Fentanyl Citrate (Fentanyl 2ml Vial) 100 mcg 1X ONCE IV Last administered on 05/17/20at 13:30; Start 05/17/20 at 13:45; Stop 05/17/20 at 13:51; Status DC Cefazolin Sodium (Ancef) 1 gm 1X ONCE IVP Last administered on 05/17/20at 13:55; Start 05/17/20 at 13:45; Stop 05/17/20 at 13:51; Status DC Albumin Human 100 ml @ 100 mls/hr 1X ONCE IV Last administered on 05/17/20at 13:45; Start 05/17/20 at 13:45; Stop 05/17/20 at 14:44; Status DC Iohexol (Omnipaque 240 Mg/ml) 50 ml 1X ONCE IJ Last administered on 05/17/20at 14:07; Start 05/17/20 at 13:45; Stop 05/17/20 at 13:51; Status DC Info (CONTRAST GIVEN -- Rx MONITORING) 1 each PRN DAILY PRN MC SEE COMMENTS; Start 05/17/20 at 14:00; Stop 05/19/20 at 13:59 Morphine Sulfate (Morphine Sulfate) 2 mg PRN Q4HRS PRN IV PAIN Last administered on 05/18/20at 19:49; Start 05/18/20 at 10:45 Mirtazapine (Remeron) 7.5 mg QHS PO ; Start 05/18/20 at 21:00 Sodium Chloride 1,000 ml @ 50 mls/hr Q20H IV Last administered on 05/18/20at 12:02; Start 05/18/20 at 10:45 Acetaminophen/ Hydrocodone Bitart (Lortab 10/325) 1 tab PRN Q4HRS PRN PO PAIN Last administered on 05/18/20at 12:01; Start 05/18/20 at 10:45 Pantoprazole Sodium (Protonix) 40 mg DAILYAC PO ; Start 05/19/20 at 07:30 Active Scripts Active Tramadol Hcl 50 Mg Tablet 50 Mg PO TID Flagyl (Metronidazole) 500 Mg Tablet 500 Mg PO Q8HRS Cephalexin 250 Mg Capsule 500 Mg PO TID Zoloft (Sertraline Hcl) 50 Mg Tablet 50 Mg PO DAILY Reported Amitriptyline Hcl 50 Mg Tablet 50 Mg PO QHS Hydroxyzine Hcl 10 Mg Tablet 10 Mg PO PRN TID PRN Vitals/I & O Vital Sign - Last 24 Hours 05/18/20 05/18/20 05/18/20 05/18/20 08:44 09:11 10:28 12:01 Temp 97.7 97.7 Pulse 91 Resp 18 B/P (MAP) 118/72 (87) Pulse Ox 94 O2 Delivery Room Air Room Air Room Air Room Air 05/18/20 05/18/20 05/18/20 05/18/20 13:01 14:00 14:11 14:41 O2 Delivery Room Air Room Air Room Air Room Air 05/18/20 05/18/20 05/18/20 05/18/20 15:00 19:00 19:49 20:00 Temp 98.0 98.7 98.0 98.7 Pulse 101 105 Resp 18 18 20 B/P (MAP) 114/72 (86) 126/71 (89) Pulse Ox 97 96 97 O2 Delivery Room Air Room Air Room Air Room Air 05/18/20 05/18/20 05/19/20 05/19/20 20:19 23:00 03:00 07:00 Temp 98.6 98.3 97.9 98.6 98.3 97.9 Pulse 102 99 100 Resp 20 16 16 18 B/P (MAP) 121/69 (86) 113/66 (82) 102/64 (77) Pulse Ox 94 97 97 96 O2 Delivery Room Air Room Air Room Air Room Air Intake and Output 05/18/20 05/18/20 05/19/20 15:00 23:00 07:00 Intake Total 300 ml 50 ml Output Total 1430 ml 200 ml Balance 300 ml -1430 ml -150 ml Nutrition Consultation Dietary Evaluation: Recommendations by RD: Dietary education by RD, Increase Calorie Intake, Protein supplementation Comments: diet education on low Na diet provided due to condition diet changed to low Na ( cardiac) due to ascites supplements added for extra kcal/ protein: ensure pudding and magic cup due to malnutrition appearance Expected Outcomes/Goals: to meet >75% est nutr needs Malnutrition Findings: Muscle Mass (Severe): Severe Depletion Weight Status: Underweight Fluid Accumulation (Severe): Severe SRINIVASA ABDULLAHI MD May 19, 2020 08:25
[2020-05-19] MEDS: LACTOBACILLUS RHAMNOSUS GG 1 CAPSULE. PO SCH ×2 (08:51→21:00)
[2020-05-19] MEDS: traMADol 50 MG TABLET PO SCH ×3 (08:58→21:00)
[2020-05-19] MEDS: ONDANSETRON PF 4 MG/2 ML VIAL. IVP PRN (08:58)
[2020-05-19] MEDS: MORPHINE SULFATE 2 MG/ML VIAL. IV PRN ×2 (08:58→13:16)
[2020-05-19] MEDS: AMINO AC 3%/ELECTROLYTE/GLYCER 1,000 ML IV SCH (08:59)
[2020-05-19] MEDS: VANCOMYCIN 125 MG/2.5 ML ORAL SOLUTION. PO SCH ×4 (09:00→21:00)
[2020-05-19] MEDS: HYDROCORTISONE ACETATE 25 MG SUPP.RECT PR SCH ×2 (09:00→21:00)
[2020-05-19] MEDS ORDERED: PROMETHAZINE 25 MG SUPP.RECT. PR PRN (10:45)
[2020-05-19 11:00] VITALS: BP 98/61
--- NOTE | 2020-05-19 11:06 | PDOC ---
Date of Service: DATE: 05/19/20 TIME: 11:04 Subjective: Subjective: Doesn't feel good. Nausea. Abdomen feels tight. Objective: Objective: Note orders for PPN and promethazine suppository. Vital Signs: Vital Signs Date Time Temp Pulse Resp B/P (MAP) Pulse Ox O2 Delivery O2 Flow Rate FiO2 05/19/20 09:58 Room Air 05/19/20 07:00 97.9 100 18 102/64 (77) 96 97.9 Labs: Laboratory Tests Test 05/19/20 09:33 Total Bilirubin 6.4 mg/dL PE: GEN: chronically ill LUNGS: clear ABD: some distention, sore, drain bilious SKIN: +jaundice NEURO/PSYCH: A & O 3 A/P: S/p Whipple w/ choledochojejunostomy stricture s/p IR biliary drain placement Nausea, abd distention -- Will review w/ Dr. Bingham. Justicifation of Admission Dx: Justifications for Admission: Justification of Admission Dx: Yes CORI PEDERSEN May 19, 2020 11:06
[2020-05-19 14:00] VITALS: BP 87/56
--- NOTE | 2020-05-19 16:57 | NUR ---
Patient refusing NG. Patient states " I dont want to have another drain that is painful. Maybe later, I just dont want it now."
--- NOTE | 2020-05-19 17:40 | RAD ---
Exam: CT abdomen and pelvis without contrast INDICATION: Pneumoperitoneum? Pain with ascites drainage TECHNIQUE: Sequential axial images through the abdomen and pelvis obtained without IV contrast. Sagittal and coronal reformatted images were reconstructed from the axial data and reviewed. Comparisons: 05/08/2020 FINDINGS: Heart size is normal. No pericardial effusion. There is a small right pleural effusion. Strandy opacities at the lung bases bilaterally. Evaluation of the solid organs is limited secondary to noncontrast technique. Liver, spleen, pancreas and adrenals are unremarkable. There is a percutaneous intrahepatic drain with tip in the duodenum. Gallbladder surgically absent. No perinephric inflammation or hydronephrosis. No renal or ureteral calculi are identified. Bladder is distended and appears thin-walled. Uterus is absent. No abnormal adnexal mass. There is a intra-abdominal drain with tip in the right lower quadrant. There is dilatation of the stomach which is air and fluid-filled. Large and small bowel are unremarkable. No free intra-abdominal air. There is a small amount of intra-abdominal ascites probably in the perihepatic and perisplenic region. Abdominal aorta has a normal course and caliber. No enlarged abdominal lymph nodes are identified. No suspicious osseous lesions or acute fractures. IMPRESSION: 1. Percutaneous abdominal drain as described above. No free, small amount of intra-abdominal ascites. 2. Stomach is moderately dilated with air and fluid. Correlate for gastric outlet obstruction Exposure: One or more of the following in the visualized dose reduction techniques were utilized for this examination: 1. Automated exposure control 2. Adjustment of the MA and/or KV according to patient size 3. Use of iterative of reconstructive technique Electronically signed by: Ash Rosas MD (05/19/2020 5:37 PM) [id number]
[2020-05-19] MEDS: fentaNYL 12MCG/HR PATCH 1 PATCH PATCH.TD72 TD SCH (17:43)
[2020-05-19 19:00] VITALS: BP 82/48
[2020-05-19] MEDS: MIRTAZAPINE 7.5 MG TABLET. PO SCH (21:00)
[2020-05-19] MEDS: AMITRIPTYLINE HCL 25 MG TABLET. PO SCH (21:00)
[2020-05-19] MEDS: METHYL SALICYLATE/MENTHOL TOPICAL CREAM 57GM TUBE. TP PRN (21:43)
[2020-05-19 23:00] VITALS: BP 87/52
[2020-05-20] VITALS (17 sets, daily range): BP systolic 91–119; BP diastolic 44–84
[2020-05-20] MEDS: IV NORMAL SALINE 1000ML BAG 1,000 ML IV SCH ×2 (02:45→19:12)
[2020-05-20] MEDS: AMINO AC 3%/ELECTROLYTE/GLYCER 1,000 ML IV SCH (03:17)
[2020-05-20 07:09] LABS: BASO # 0.2 x10^3/uL (0.0-0.2); BASO % 1 % (0-3); EOS # 0.2 x10^3/uL (0.0-0.7); EOS % 1 % (0-3); LYMPH # 5.3 x10^3/uL (1.0-4.8); LYMPH % 14 % (24-48); MEAN CORPUSCULAR HEMOGLOBIN 30 pg (25-35); MEAN CORPUSCULAR HGB CONC 32 g/dL (31-37); MEAN CORPUSCULAR VOLUME 94 fL (79-100); MONO # 2.8 x10^3/uL (0.0-1.1); MONO % 7 % (0-9); NEUT % 78 % (31-73); PLATELET COUNT 427 x10^3/uL (140-400); RED BLOOD COUNT 1.53 x10^6/uL (3.50-5.40); RED CELL DISTRIBUTION WIDTH 17.4 % (11.5-14.5); WHITE BLOOD COUNT 38.6 x10^3/uL (4.0-11.0)
[2020-05-20 07:16] LABS: HEMATOCRIT 14.4 % (36.0-47.0)
[2020-05-20 07:17] LABS: HEMOGLOBIN 4.6 g/dL (12.0-15.5)
[2020-05-20 08:51] LABS: ALBUMIN 1.9 g/dL (3.4-5.0); ALBUMIN/GLOBULIN RATIO 0.5 (1.0-1.7); CALCIUM 8.2 mg/dL (8.5-10.1); CREATININE 1.4 mg/dL (0.6-1.0); TOTAL BILIRUBIN 4.7 mg/dL (0.2-1.0); TOTAL PROTEIN 5.9 g/dL (6.4-8.2)
[2020-05-20] MEDS: HYDROCORTISONE ACETATE 25 MG SUPP.RECT PR SCH ×2 (09:00→21:30)
[2020-05-20] MEDS: traMADol 50 MG TABLET PO SCH ×3 (09:00→21:30)
[2020-05-20] MEDS: VANCOMYCIN 125 MG/2.5 ML ORAL SOLUTION. PO SCH ×4 (09:00→21:28)
[2020-05-20] MEDS: LACTOBACILLUS RHAMNOSUS GG 1 CAPSULE. PO SCH ×2 (09:00→21:28)
--- NOTE | 2020-05-20 09:53 | RAD ---
INDICATION: Reason: Right shoulder pain / Spl. Instructions: / History: COMPARISON: None. IMPRESSION: Right shoulder: 3 views obtained. Degenerative changes with hypertrophic changes at the acromioclavicular joint. There is elevation of the humeral head which can be from chronic rotator cuff injury. An acute fracture line or dislocation is not seen. Electronically signed by: Abraham Gutierrez MD (05/20/2020 9:51 AM) [id number]
--- NOTE | 2020-05-20 12:05 | PDOC ---
PROGRESS NOTES Date of Service DATE: 05/20/20 TIME: 11:53 Subjective Subjective discussed with patient and her and son Shimon lundberg physician. she agrees top NG tube to suction. ct scan abd/pelvis showed a distended stomach and possible gastric outlet obstruction. hgb 4.6 and was 8.2. wbc 38.6. afebrile. bun 67 and creatinine 1.4. bilirubin down to 4.7. ordered 4 untis of prbc. denies melena or hematochezia or hemetemesis Objective Objective Vital Signs Date Time Temp Pulse Resp B/P (MAP) Pulse Ox O2 Delivery O2 Flow Rate FiO2 05/20/20 11:13 97.0 103 18 110/60 97.0 05/20/20 11:00 100 Room Air 05/20/20 08:00 2.0 Intake and Output 05/20/20 07:00 Intake Total 0 ml Output Total 480 ml Balance -480 ml Intake Oral 0 ml Drainage Total 480 ml Physical Exam Abdomen: Soft, Other (ascites and mild tenderness. bowel sounds positive. no guarding. external bile duct capped. 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 paracentesis 05/10/20. benign cells 4. Anemia. 5. Hypokalemia treated 6. Severe protein-calorie malnutrition. 7. Fibromyalgia. 8. Hypotension treated low grade fever resolved abdominal pain better hx of c,.diff bile duct stricture ballon dilatation 05/14 . left biliary tree still dilated internal to external bile drain placed 05/17 pleurix tube placed for intermittent paracentesis depression acute blood loss anemia suspect GI bleed pre renal azotemia susepct due to acute blood loss and GI bleed leukocytosis,. possibly due to stress demargination from GI bleed. doubt sepsis Plan Plan of Care transfuse 4 units prbc then start iv NS NG tube placement to continue suction check stat hjgb after 4 units prbc labs tomorrow iv protonix await ID recommendations regarding leukocytosis urinalysis and urine culture cxr blood cultures start iv zyvox and meropenem Comment Review of Relevant I have reviewed the following items betty (where applicable) has been applied. Labs Laboratory Tests Test 05/19/20 09:33 05/20/20 06:40 05/20/20 08:05 Total Bilirubin 6.4 mg/dL (0.2-1.0) 4.7 mg/dL (0.2-1.0) White Blood Count 38.6 x10^3/uL (4.0-11.0) Red Blood Count 1.53 x10^6/uL (3.50-5.40) Hemoglobin 4.6 g/dL (12.0-15.5) Hematocrit 14.4 % (36.0-47.0) Mean Corpuscular Volume 94 fL (79-100) Mean Corpuscular Hemoglobin 30 pg (25-35) Mean Corpuscular Hemoglobin Concent 32 g/dL (31-37) Red Cell Distribution Width 17.4 % (11.5-14.5) Platelet Count 427 x10^3/uL (140-400) Neutrophils (%) (Auto) 78 % (31-73) Lymphocytes (%) (Auto) 14 % (24-48) Monocytes (%) (Auto) 7 % (0-9) Eosinophils (%) (Auto) 1 % (0-3) Basophils (%) (Auto) 1 % (0-3) Neutrophils # (Auto) 30.0 x10^3/uL (1.8-7.7) Lymphocytes # (Auto) 5.3 x10^3/uL (1.0-4.8) Monocytes # (Auto) 2.8 x10^3/uL (0.0-1.1) Eosinophils # (Auto) 0.2 x10^3/uL (0.0-0.7) Basophils # (Auto) 0.2 x10^3/uL (0.0-0.2) Sodium Level 131 mmol/L (136-145) Potassium Level 5.0 mmol/L (3.5-5.1) Chloride Level 97 mmol/L (98-107) Carbon Dioxide Level 27 mmol/L (21-32) Anion Gap 7 (6-14) Blood Urea Nitrogen 67 mg/dL (7-20) Creatinine 1.4 mg/dL (0.6-1.0) Estimated GFR (Cockcroft-Gault) 36.0 BUN/Creatinine Ratio 48 (6-20) Glucose Level 158 mg/dL (70-99) Calcium Level 8.2 mg/dL (8.5-10.1) Aspartate Amino Transf (AST/SGOT) 78 U/L (15-37) Alanine Aminotransferase (ALT/SGPT) 44 U/L (14-59) Alkaline Phosphatase 607 U/L (46-116) Total Protein 5.9 g/dL (6.4-8.2) Albumin 1.9 g/dL (3.4-5.0) Albumin/Globulin Ratio 0.5 (1.0-1.7) Laboratory Tests Test 05/20/20 06:40 05/20/20 08:05 White Blood Count 38.6 x10^3/uL (4.0-11.0) Red Blood Count 1.53 x10^6/uL (3.50-5.40) Hemoglobin 4.6 g/dL (12.0-15.5) Hematocrit 14.4 % (36.0-47.0) Mean Corpuscular Volume 94 fL (79-100) Mean Corpuscular Hemoglobin 30 pg (25-35) Mean Corpuscular Hemoglobin Concent 32 g/dL (31-37) Red Cell Distribution Width 17.4 % (11.5-14.5) Platelet Count 427 x10^3/uL (140-400) Neutrophils (%) (Auto) 78 % (31-73) Lymphocytes (%) (Auto) 14 % (24-48) Monocytes (%) (Auto) 7 % (0-9) Eosinophils (%) (Auto) 1 % (0-3) Basophils (%) (Auto) 1 % (0-3) Neutrophils # (Auto) 30.0 x10^3/uL (1.8-7.7) Lymphocytes # (Auto) 5.3 x10^3/uL (1.0-4.8) Monocytes # (Auto) 2.8 x10^3/uL (0.0-1.1) Eosinophils # (Auto) 0.2 x10^3/uL (0.0-0.7) Basophils # (Auto) 0.2 x10^3/uL (0.0-0.2) Sodium Level 131 mmol/L (136-145) Potassium Level 5.0 mmol/L (3.5-5.1) Chloride Level 97 mmol/L (98-107) Carbon Dioxide Level 27 mmol/L (21-32) Anion Gap 7 (6-14) Blood Urea Nitrogen 67 mg/dL (7-20) Creatinine 1.4 mg/dL (0.6-1.0) Estimated GFR (Cockcroft-Gault) 36.0 BUN/Creatinine Ratio 48 (6-20) Glucose Level 158 mg/dL (70-99) Calcium Level 8.2 mg/dL (8.5-10.1) Total Bilirubin 4.7 mg/dL (0.2-1.0) Aspartate Amino Transf (AST/SGOT) 78 U/L (15-37) Alanine Aminotransferase (ALT/SGPT) 44 U/L (14-59) Alkaline Phosphatase 607 U/L (46-116) Total Protein 5.9 g/dL (6.4-8.2) Albumin 1.9 g/dL (3.4-5.0) Albumin/Globulin Ratio 0.5 (1.0-1.7) Microbiology 05/10/20 Gram Stain - Final, Complete 05/10/20 Aerobic and Anaerobic Culture - Final, Complete 05/09/20 Blood Culture - Final, Complete NO GROWTH AFTER 5 DAYS Medications Current Medications Hydroxyzine HCl (Atarax) 10 mg PRN TID PRN PO ITCHING Last administered on 05/18/20at 15:09; Start 05/07/20 at 17:00 Sertraline HCl (Zoloft) 50 mg DAILY PO Last administered on 05/09/20at 08:44; Start 05/08/20 at 09:00; Stop 05/09/20 at 11:19; Status DC Amitriptyline HCl (Elavil) 50 mg QHS PO Last administered on 05/17/20at 21:31; Start 05/07/20 at 21:00 Acetaminophen (Tylenol) 325 mg PRN Q6HRS PRN PO MILD PAIN / TEMP > 100.3'F; Start 05/07/20 at 20:00 Iohexol (Omnipaque 300 Mg/ml) 75 ml 1X ONCE IV Last administered on 05/08/20at 13:30; Start 05/08/20 at 11:45; Stop 05/08/20 at 11:46; Status DC Info (CONTRAST GIVEN -- Rx MONITORING) 1 each PRN DAILY PRN MC SEE COMMENTS; Start 05/08/20 at 11:45; Stop 05/10/20 at 11:44; Status DC Tramadol HCl (Ultram) 50 mg TID PO Last administered on 05/09/20at 07:35; Start 05/08/20 at 14:00; Stop 05/09/20 at 11:15; Status DC Potassium Chloride (Klor-Con) 40 meq 1X ONCE PO Last administered on 05/08/20at 14:10; Start 05/08/20 at 12:15; Stop 05/08/20 at 12:16; Status DC Sodium Chloride 1,000 ml @ 60 mls/hr [id number] IV Last administered on 05/09/20at 07:36; Start 05/08/20 at 12:30; Stop 05/09/20 at 11:15; Status DC Amylase/Lipase/ Protease (Zenpep 5,000) 2 cap TIDWMEALS PO Last administered on 05/16/20at 12:28; Start 05/08/20 at 13:00 Phytonadione (Vitamin K Ampule) 2 mg 1X ONCE SQ Last administered on 05/09/20at 11:34; Start 05/09/20 at 11:00; Stop 05/09/20 at 11:01; Status DC Meropenem 1 gm/ Sodium Chloride 100 ml @ 200 mls/hr Q12HR IV Last administered on 05/15/20at 08:42; Start 05/09/20 at 11:30; Stop 05/15/20 at 09:01; Status DC Linezolid/Dextrose 300 ml @ 300 mls/hr Q12HR IV Last administered on 05/15/20at 08:42; Start 05/09/20 at 12:00; Stop 05/15/20 at 09:01; Status DC Acetaminophen/ Hydrocodone Bitart (Lortab 5/325) 1 tab PRN Q4HRS PRN PO MODERATE - SEVERE PAIN Last administered on 05/16/20at 18:37; Start 05/09/20 at 11:15; Stop 05/18/20 at 10:35; Status DC Vancomycin HCl (Vancomycin Oral Solution) 125 mg [id number] PO Last administered on 05/17/20at 21:31; Start 05/09/20 at 14:00 Lactobacillus Rhamnosus (Culturelle) 1 cap BID PO Last administered on 05/17at 21:32; Start 05/09/20 at 21:00 Lidocaine HCl (Buffered Lidocaine 1%) 3 ml STK-MED ONCE .ROUTE ; Start 05/10/20 at 08:09; Stop 05/10/20 at 08:09; Status DC Lidocaine HCl (Buffered Lidocaine 1%) 6 ml 1X ONCE INJ Last administered on 05/10/20at 08:15; Start 05/10/20 at 08:15; Stop 05/10/20 at 08:19; Status DC Lidocaine HCl (Buffered Lidocaine 1%) 3 ml 1X ONCE INJ ; Start 05/10/20 at 09:00; Stop 05/10/20 at 09:01; Status DC Potassium Chloride (Klor-Con) 20 meq 1X ONCE PO Last administered on 05/10/20at 10:29; Start 05/10/20 at 10:30; Stop 05/10/20 at 10:31; Status DC Levofloxacin/ Dextrose 100 ml @ 100 mls/hr 1X ONCE IV Last administered on 05/12/20at 14:15; Start 05/12/20 at 09:00; Stop 05/12/20 at 09:59; Status DC Ringer's Solution 1,000 ml @ 30 mls/hr Q24H IV Last administered on 05/12/20at 09:39; Start 05/12/20 at 07:00; Stop 05/12/20 at 18:59; Status DC Prochlorperazine Edisylate (Compazine) 5 mg PACU PRN PRN IV NAUSEA, MRX1; Start 05/12/20 at 07:00; Stop 05/13/20 at 06:59; Status DC Ringer's Solution 1,000 ml @ 75 mls/hr 1X ONCE IV Last administered on 05/12/20at 11:46; Start 05/12/20 at 07:30; Stop 05/12/20 at 20:49; Status DC Iohexol (Omnipaque 300 Mg/ml) 100 ml STK-MED ONCE .ROUTE ; Start 05/12/20 at 09:24; Stop 05/12/20 at 09:24; Status DC Propofol (Diprivan) 200 mg STK-MED ONCE IV ; Start 05/12/20 at 10:12; Stop 05/12/20 at 10:12; Status DC Succinylcholine Chloride (Anectine) 200 mg STK-MED ONCE .ROUTE ; Start 05/10/20 at 09:00; Stop 05/12/20 at 12:52; Status DC Ephedrine Sulfate (ePHEDrine PF IN SALINE SYRINGE) 50 mg STK-MED ONCE IV ; Start 05/10/20 at 09:00; Stop 05/12/20 at 12:52; Status DC Morphine Sulfate (Morphine Sulfate) 1 mg PRN Q4HRS PRN IV PAIN Last administered on 05/18/20at 08:14; Start 05/12/20 at 13:15; Stop 05/18/20 at 10:35; Status DC Ondansetron HCl (Zofran) 4 mg PRN Q6HRS PRN IVP NAUSEA/VOMITING Last administered on 05/19/20at 08:58; Start 05/12/20 at 13:15 Tramadol HCl (Ultram) 50 mg TID PO Last administered on 05/19/20at 08:58; Start 05/12/20 at 14:00 Spironolactone (Aldactone) 50 mg BID PO Last administered on 05/15/20at 08:43; Start 05/13/20 at 12:00; Stop 05/15/20 at 12:34; Status DC Hydrocortisone Acetate (Anucort-Hc) 25 mg BID NE Last administered on 05/18/20at 19:48; Start 05/13/20 at 12:00 Lidocaine/ Epinephrine (LIDOCAINE 1%-EPI 1:100,000 Multi-Dose) 20 ml STK-MED ONCE .ROUTE ; Start 05/14/20 at 10:55; Stop 05/14/20 at 10:55; Status DC Iohexol (Omnipaque 240 Mg/ml) 50 ml STK-MED ONCE .ROUTE ; Start 05/14/20 at 10:59; Stop 05/14/20 at 11:00; Status DC Midazolam HCl (Versed) 5 mg STK-MED ONCE .ROUTE ; Start 05/14/20 at 11:18; Stop 05/14/20 at 11:18; Status DC Fentanyl Citrate (Fentanyl 2ml Vial) 100 mcg STK-MED ONCE .ROUTE ; Start 05/14/20 at 11:18; Stop 05/14/20 at 11:18; Status DC Midazolam HCl (Versed) 5 mg 1X ONCE IV Last administered on 05/14/20at 12:41; Start 05/14/20 at 11:45; Stop 05/14/20 at 11:46; Status DC Fentanyl Citrate (Fentanyl 2ml Vial) 100 mcg 1X ONCE IV Last administered on 05/14/20at 12:41; Start 05/14/20 at 11:45; Stop 05/14/20 at 11:46; Status DC Lidocaine/ Epinephrine (LIDOCAINE 1%-EPI 1:100,000 Multi-Dose) 20 ml 1X ONCE INJ Last administered on 05/14/20at 12:40; Start 05/14/20 at 11:45; Stop 05/14/20 at 11:46; Status DC Iohexol (Omnipaque 240 Mg/ml) 50 ml 1X ONCE IJ Last administered on 05/14/20at 12:40; Start 05/14/20 at 11:45; Stop 05/14/20 at 11:46; Status DC Info (CONTRAST GIVEN -- Rx MONITORING) 1 each PRN DAILY PRN MC SEE COMMENTS; Start 05/14/20 at 11:45; Stop 05/16/20 at 11:44; Status DC Fentanyl Citrate (Fentanyl 2ml Vial) 100 mcg STK-MED ONCE .ROUTE ; Start 05/14/20 at 13:15; Stop 05/14/20 at 13:15; Status DC Iohexol (Omnipaque 300 Mg/ml) 100 ml STK-MED ONCE .ROUTE ; Start 05/14/20 at 13:27; Stop 05/14/20 at 13:28; Status DC Albumin Human 100 ml @ 100 mls/hr 1X ONCE IV ; Start 05/16/20 at 11:00; Stop 05/16/20 at 11:59; Status DC Lidocaine HCl (Buffered Lidocaine 1%) 3 ml STK-MED ONCE .ROUTE ; Start 05/17/20 at 13:11; Stop 05/17/20 at 13:12; Status DC Iohexol (Omnipaque 240 Mg/ml) 50 ml STK-MED ONCE .ROUTE ; Start 05/17/20 at 13:15; Stop 05/17/20 at 13:16; Status DC Albumin Human 100 ml @ As Directed STK-MED ONCE IV ; Start 05/17/20 at 13:16; Stop 05/17/20 at 13:17; Status DC Cefazolin Sodium (Ancef) 1 gm STK-MED ONCE IVP ; Start 05/17/20 at 13:16; Stop 05/17/20 at 13:17; Status DC Midazolam HCl (Versed) 2 mg STK-MED ONCE .ROUTE ; Start 05/17/20 at 13:16; Stop 05/17/20 at 13:17; Status DC Fentanyl Citrate (Fentanyl 2ml Vial) 100 mcg STK-MED ONCE .ROUTE ; Start 05/17/20 at 13:17; Stop 05/17/20 at 13:17; Status DC Cefazolin Sodium (Ancef) 1 gm STK-MED ONCE IVP ; Start 05/17/20 at 13:17; Stop 05/17/20 at 13:17; Status DC Lidocaine HCl (Buffered Lidocaine 1%) 3 ml 1X ONCE IJ Last administered on 05/17/20at 13:45; Start 05/17/20 at 13:45; Stop 05/17/20 at 13:51; Status DC Midazolam HCl (Versed) 2 mg 1X ONCE IV Last administered on 05/17/20at 13:30; Start 05/17/20 at 13:45; Stop 05/17/20 at 13:51; Status DC Fentanyl Citrate (Fentanyl 2ml Vial) 100 mcg 1X ONCE IV Last administered on 05/17/20at 13:30; Start 05/17/20 at 13:45; Stop 05/17/20 at 13:51; Status DC Cefazolin Sodium (Ancef) 1 gm 1X ONCE IVP Last administered on 05/17/20at 13:55; Start 05/17/20 at 13:45; Stop 05/17/20 at 13:51; Status DC Albumin Human 100 ml @ 100 mls/hr 1X ONCE IV Last administered on 05/17/20at 13:45; Start 05/17/20 at 13:45; Stop 05/17/20 at 14:44; Status DC Iohexol (Omnipaque 240 Mg/ml) 50 ml 1X ONCE IJ Last administered on 05/17/20at 14:07; Start 05/17/20 at 13:45; Stop 05/17/20 at 13:51; Status DC Info (CONTRAST GIVEN -- Rx MONITORING) 1 each PRN DAILY PRN MC SEE COMMENTS; Start 05/17/20 at 14:00; Stop 05/19/20 at 13:59; Status DC Morphine Sulfate (Morphine Sulfate) 2 mg PRN Q4HRS PRN IV PAIN Last administered on 05/19/20at 13:16; Start 05/18/20 at 10:45 Mirtazapine (Remeron) 7.5 mg QHS PO ; Start 05/18/20 at 21:00 Sodium Chloride 1,000 ml @ 50 mls/hr Q20H IV Last administered on 05/18/20at 1 2:02; Start 05/18/20 at 10:45 Acetaminophen/ Hydrocodone Bitart (Lortab 10/325) 1 tab PRN Q4HRS PRN PO PAIN Last administered on 05/18/20at 12:01; Start 05/18/20 at 10:45 Pantoprazole Sodium (Protonix) 40 mg DAILYAC PO ; Start 05/19/20 at 07:30 Amino Acids/ Glycerin/ Electrolytes 1,000 ml @ 50 mls/hr Q20H IV Last administered on 05/20/20at 03:17; Start 05/19/20 at 08:45 Promethazine HCl (Phenergan Supp) 25 mg PRN Q8HRS PRN NE NAUSEA/VOMITING Last administered on 05/19/20at 11:58; Start 05/19/20 at 10:45 Fentanyl (Duragesic 12mcg/ Hr Patch) 1 patch Q3DAYS TD Last administered on 05/19/20at 17:43; Start 05/19/20 at 18:00 Menthol/Methyl Salicylate (Bengay Greaseless Cream) 1 amparo PRN QID PRN TP MUSCLE PAIN Last administered on 05/19/20at 21:43; Start 05/19/20 at 21:15 Active Scripts Active Tramadol Hcl 50 Mg Tablet 50 Mg PO TID Flagyl (Metronidazole) 500 Mg Tablet 500 Mg PO Q8HRS Cephalexin 250 Mg Capsule 500 Mg PO TID Zoloft (Sertraline Hcl) 50 Mg Tablet 50 Mg PO DAILY Reported Amitriptyline Hcl 50 Mg Tablet 50 Mg PO QHS Hydroxyzine Hcl 10 Mg Tablet 10 Mg PO PRN TID PRN Vitals/I & O Vital Sign - Last 24 Hours 05/19/20 05/19/20 05/19/20 05/19/20 13:16 13:46 14:00 14:00 Temp 98.2 98.2 Pulse 117 Resp 16 B/P (MAP) 87/56 (66) Pulse Ox 97 O2 Delivery Room Air Room Air Room Air Room Air 05/19/20 05/19/20 05/19/20 05/19/20 17:43 19:00 20:00 21:43 Temp 97.4 97.4 Pulse 112 Resp 16 B/P (MAP) 82/48 (59) Pulse Ox 95 95 O2 Delivery Room Air Room Air Room Air Room Air 05/19/20 05/20/20 05/20/20 05/20/20 23:00 03:00 07:00 08:00 Temp 97.5 96.8 97.7 97.5 96.8 97.7 Pulse 110 103 102 Resp 16 16 16 B/P (MAP) 87/52 (64) 92/44 (60) 91/52 (65) Pulse Ox 98 95 96 O2 Delivery Room Air Nasal Cannula Room Air Nasal Cannula O2 Flow Rate 2.0 2.0 05/20/20 05/20/20 05/20/20 10:56 11:00 11:13 Temp 97.3 96.3 97.0 97.3 96.3 97.0 Pulse 103 103 103 Resp 16 16 18 B/P (MAP) 102/59 102/59 (73) 110/60 Pulse Ox 100 O2 Delivery Room Air Intake and Output 05/19/20 05/19/20 05/20/20 15:00 23:00 07:00 Intake Total 0 ml 0 ml Output Total 480 ml Balance -480 ml 0 ml Justifications for Admission Other Justification Nutrition Consultation Dietary Evaluation: Recommendations by RD: Dietary education by RD, Protein supplementation, PPN/TPN Comments: REC: Continue w/ PPN as ordered for nutrition support needs at this time. 34.8 g protein, 294 g dextrose per 1200 ml at 50 ml/ hr.Continue and advance diet per MD. Expected Outcomes/Goals: to meet >75% est nutr needs Malnutrition Findings: Muscle Mass (Severe): Severe Depletion Food and Nutrition Intake (Sev: <50% est energy req 5days Body Fat Depletion (Non Severe: Mod to Severe Weight Status: Underweight Fluid Accumulation (Severe): Severe SRINIVASA ABDULLAHI MD May 20, 2020 12:05
--- NOTE | 2020-05-20 12:52 | RAD ---
PROCEDURE: KUB STUDY DATE: 05/20/2020 CLINICAL INDICATION / HISTORY: Reason: obstruction / Spl. Instructions: / History: . TECHNIQUE: Single AP image of the abdomen was obtained. COMPARISON: Abdomen pelvis CT with neither oral nor IV contrast FINDINGS: Right upper quadrant external biliary drain is present with the side ports projecting inferior to right upper quadrant surgical clips. A slightly inferior, pleural drainage catheter is present, terminating along the right flank. No dilated gas-filled bowel loops are identified suggest bowel obstruction with gas-filled distended stomach redemonstrated. No evidence of bowel perforation. IMPRESSION: Distended stomach with multiple postsurgical changes as described. No findings suggesting bowel obstruction or perforation. Electronically signed by: Andrey Velasquez MD (05/20/2020 12:49 PM) [id number]
--- NOTE | 2020-05-20 12:59 | PDOC ---
G I PROGRESS NOTE Subjective Miserable/uncomfortable. No vomiting. No overt bleeding. Objective Others' notes reviewed. Physical Exam Lungs clear RRR Abdomen soft, not distended. Not really tender. Review of Relevant I have reviewed the following items betty (where applicable) has been applied. Labs Laboratory Tests Test 05/19/20 09:33 05/20/20 06:40 05/20/20 08:05 Total Bilirubin 6.4 mg/dL (0.2-1.0) 4.7 mg/dL (0.2-1.0) White Blood Count 38.6 x10^3/uL (4.0-11.0) Red Blood Count 1.53 x10^6/uL (3.50-5.40) Hemoglobin 4.6 g/dL (12.0-15.5) Hematocrit 14.4 % (36.0-47.0) Mean Corpuscular Volume 94 fL (79-100) Mean Corpuscular Hemoglobin 30 pg (25-35) Mean Corpuscular Hemoglobin Concent 32 g/dL (31-37) Red Cell Distribution Width 17.4 % (11.5-14.5) Platelet Count 427 x10^3/uL (140-400) Neutrophils (%) (Auto) 78 % (31-73) Lymphocytes (%) (Auto) 14 % (24-48) Monocytes (%) (Auto) 7 % (0-9) Eosinophils (%) (Auto) 1 % (0-3) Basophils (%) (Auto) 1 % (0-3) Neutrophils # (Auto) 30.0 x10^3/uL (1.8-7.7) Lymphocytes # (Auto) 5.3 x10^3/uL (1.0-4.8) Monocytes # (Auto) 2.8 x10^3/uL (0.0-1.1) Eosinophils # (Auto) 0.2 x10^3/uL (0.0-0.7) Basophils # (Auto) 0.2 x10^3/uL (0.0-0.2) Sodium Level 131 mmol/L (136-145) Potassium Level 5.0 mmol/L (3.5-5.1) Chloride Level 97 mmol/L (98-107) Carbon Dioxide Level 27 mmol/L (21-32) Anion Gap 7 (6-14) Blood Urea Nitrogen 67 mg/dL (7-20) Creatinine 1.4 mg/dL (0.6-1.0) Estimated GFR (Cockcroft-Gault) 36.0 BUN/Creatinine Ratio 48 (6-20) Glucose Level 158 mg/dL (70-99) Calcium Level 8.2 mg/dL (8.5-10.1) Aspartate Amino Transf (AST/SGOT) 78 U/L (15-37) Alanine Aminotransferase (ALT/SGPT) 44 U/L (14-59) Alkaline Phosphatase 607 U/L (46-116) Total Protein 5.9 g/dL (6.4-8.2) Albumin 1.9 g/dL (3.4-5.0) Albumin/Globulin Ratio 0.5 (1.0-1.7) Laboratory Tests Test 05/20/20 06:40 05/20/20 08:05 White Blood Count 38.6 x10^3/uL (4.0-11.0) Red Blood Count 1.53 x10^6/uL (3.50-5.40) Hemoglobin 4.6 g/dL (12.0-15.5) Hematocrit 14.4 % (36.0-47.0) Mean Corpuscular Volume 94 fL (79-100) Mean Corpuscular Hemoglobin 30 pg (25-35) Mean Corpuscular Hemoglobin Concent 32 g/dL (31-37) Red Cell Distribution Width 17.4 % (11.5-14.5) Platelet Count 427 x10^3/uL (140-400) Neutrophils (%) (Auto) 78 % (31-73) Lymphocytes (%) (Auto) 14 % (24-48) Monocytes (%) (Auto) 7 % (0-9) Eosinophils (%) (Auto) 1 % (0-3) Basophils (%) (Auto) 1 % (0-3) Neutrophils # (Auto) 30.0 x10^3/uL (1.8-7.7) Lymphocytes # (Auto) 5.3 x10^3/uL (1.0-4.8) Monocytes # (Auto) 2.8 x10^3/uL (0.0-1.1) Eosinophils # (Auto) 0.2 x10^3/uL (0.0-0.7) Basophils # (Auto) 0.2 x10^3/uL (0.0-0.2) Sodium Level 131 mmol/L (136-145) Potassium Level 5.0 mmol/L (3.5-5.1) Chloride Level 97 mmol/L (98-107) Carbon Dioxide Level 27 mmol/L (21-32) Anion Gap 7 (6-14) Blood Urea Nitrogen 67 mg/dL (7-20) Creatinine 1.4 mg/dL (0.6-1.0) Estimated GFR (Cockcroft-Gault) 36.0 BUN/Creatinine Ratio 48 (6-20) Glucose Level 158 mg/dL (70-99) Calcium Level 8.2 mg/dL (8.5-10.1) Total Bilirubin 4.7 mg/dL (0.2-1.0) Aspartate Amino Transf (AST/SGOT) 78 U/L (15-37) Alanine Aminotransferase (ALT/SGPT) 44 U/L (14-59) Alkaline Phosphatase 607 U/L (46-116) Total Protein 5.9 g/dL (6.4-8.2) Albumin 1.9 g/dL (3.4-5.0) Albumin/Globulin Ratio 0.5 (1.0-1.7) Microbiology 05/10/20 Gram Stain - Final, Complete 05/10/20 Aerobic and Anaerobic Culture - Final, Complete 05/09/20 Blood Culture - Final, Complete NO GROWTH AFTER 5 DAYS Note drop in hemoglobin. Vitals/I & O Vital Sign - Last 24 Hours 05/19/20 05/19/20 05/19/20 05/19/20 13:16 13:46 14:00 14:00 Temp 98.2 98.2 Pulse 117 Resp 16 B/P (MAP) 87/56 (66) Pulse Ox 97 O2 Delivery Room Air Room Air Room Air Room Air 05/19/20 05/19/20 05/19/20 05/19/20 17:43 19:00 20:00 21:43 Temp 97.4 97.4 Pulse 112 Resp 16 B/P (MAP) 82/48 (59) Pulse Ox 95 95 O2 Delivery Room Air Room Air Room Air Room Air 05/19/20 05/20/20 05/20/20 05/20/20 23:00 03:00 07:00 08:00 Temp 97.5 96.8 97.7 97.5 96.8 97.7 Pulse 110 103 102 Resp 16 16 16 B/P (MAP) 87/52 (64) 92/44 (60) 91/52 (65) Pulse Ox 98 95 96 O2 Delivery Room Air Nasal Cannula Room Air Nasal Cannula O2 Flow Rate 2.0 2.0 05/20/20 05/20/20 05/20/20 10:56 11:00 11:13 Temp 97.3 96.3 97.0 97.3 96.3 97.0 Pulse 103 103 103 Resp 16 16 18 B/P (MAP) 102/59 102/59 (73) 110/60 Pulse Ox 100 O2 Delivery Room Air Intake and Output 05/19/20 05/19/20 05/20/20 15:00 23:00 07:00 Intake Total 0 ml 0 ml Output Total 480 ml Balance -480 ml [address] yesterday with markedly dilated stomach. Assessment Anastomotic stricture. Numbers better post-drain. Apparent GOO. Unclear why, but not a lot of room just past stomach and drain could play a role. Acute anemia w/o overt bleeding or symptoms to suggest 3rd space loss (unless it's in her stomach). Plan of Care Note Apparently NG to be placed. Await this. More fluid sent for cytology; await this. Continue IV PPI. Agree with transfusion. Justicifation of Admission Dx: Justifications for Admission: Justification of Admission Dx: Yes SRINIVASA OTERO MD May 20, 2020 12:59
[2020-05-20] MEDS: MEROPENEM 500 MG in IV NORMAL SALINE 50ML 50 ML IV SCH ×2 (13:00→23:22)
[2020-05-20] MEDS: PANTOPRAZOLE IV PUSH 40 MG VIAL. IVP SCH (13:00)
--- NOTE | 2020-05-20 13:08 | PATHOLOGY ---
Note [facility] Accession Number: [id number] TESTS RESULT FLAG UNITS REF RANGE LAB Clinician Provided Cytology Information No. of containers..01 Other (Miscellaneous) Source: ASCITES DIAGNOSIS: 02 ASCITES INCONCLUSIVE. THIS INTERPRETATION INCLUDES EVALUATION OF A CELL BLOCK. COMMENT, ATYPICAL CELLS ARE PRESENT. IMMUNOPEROXIDASE STAINS BEREP4, CALRETININ CK7, CK20, CK19 WT1, WILL BE DONE AND AN ADDIONAL REPORT WILL FOLLOW. Signed out by: Joseluis Wick MD, Pathologist NPI- [id number] Performed by: Miranda Cruz, [facility] ([facility]) Gross description: 01 50ML, CLOUDY YELLOW, 1 TP 1 CB /LCS 05/19/2020 1758 Local FLAG LEGEND: L-Low Normal,H-High Normal,LL-Alert Low,HH-Alert High <-Panic Low,>-Panic High,A-Abnormal,AA-Critical Abnormal Performed at: [facility] [address] [place] [address] [address] [place] [address] Dani Guerrero MD, [place] [address] [address] Jose Lancaster MD, Specimen Comment: A courtesy copy of this report has been sent to [phone], [phone] Specimen Comment: [id number] Specimen Comment: Report sent to / DR ABDULLAHI Specimen Comment: A duplicate report has been generated due to demographic updates. Performed at: [address], [place], [place] [id number] MD Dani Guerrero MD Phone: [phone]
[2020-05-20] MEDS: MORPHINE SULFATE 2 MG/ML VIAL. IV PRN ×3 (13:49→23:18)
--- NOTE | 2020-05-20 16:42 | RAD ---
Single AP view of the chest. Comparison: 05/08/2020. Indication: Leukocytosis Findings: Pigtail drain is seen in the right upper quadrant, likely percutaneous transhepatic cholangiogram drain The heart is not enlarged. There is no pneumothorax or effusion. No air space or interstitial disease. Impression: 1. No acute cardiopulmonary process. Electronically signed by: Larry Covarrubias MD (05/20/2020 4:39 PM) [id number]
--- NOTE | 2020-05-20 16:45 | NUR ---
DRESSING TO RIGHT LOWER SIDE (BILIARY DRAIN SITE) REINFORCED PER THIS HIGH DENSITY PRESS OPERATOR DUE TO SMALL AMOUNT OF DRAINAGE AT THE INSERTION SITE.
--- NOTE | 2020-05-20 17:13 | NUR ---
THIS STRAW HAT BRIM RAISER OPERATOR AND ANOTHER RN ON THE UNIT ATTEMPTED TO INSERT NG TUBE ORDERED PER DR. ABDULLAHI, UNSUCCESSFUL AT THIS TIME DUE TO RESISTANCE MET WHEN INSERTING THROUGH EACH NOSTRIL WELL IT BEING VERY UNCOMFORTABLE TO THE PATIENT EVIDENCED BY THE PATIENT YELLING OUT AND STATING "PLEASE, "I CAN'T DO THIS, IT IS JUST TO PAINFUL, CALL PLACED TO DR. ABDULLAHI AND ORDERS RECEIVED, COMFORT MEASURES GIVEN, PATIENTS' DAUGHTER INFORMED.
[2020-05-20 20:50] LABS: BILIRUBIN,URINE MODERATE (NEG); CLARITY,URINE CLOUDY; COLOR,URINE AMBER; NITRITE,URINE NEGATIVE (NEG); PH,URINE 6.5 (<5.0-8.0); PROTEIN,URINE NEGATIVE (NEG-TRACE); UROBILINOGEN,URINE 0.2 mg/dL (0.2 mg/dL)
[2020-05-20 20:57] LABS: SQUAMOUS EPITHELIAL CELL,UR MOD /LPF
[2020-05-20 20:58] LABS: BACTERIA,URINE FEW /HPF (0-FEW); RBC,URINE 0 /HPF (0-2); YEAST,URINE PRESENT /HPF
[2020-05-20 21:04] LABS: HYALINE CASTS, URINE FEW /HPF
[2020-05-21] VITALS (13 sets, daily range): BP systolic 92–113; BP diastolic 45–61
[2020-05-21] MEDS: MORPHINE SULFATE 2 MG/ML VIAL. IV PRN (03:04)
[2020-05-21 05:56] LABS: BASO % 0 % (0-3); EOS # 0.3 x10^3/uL (0.0-0.7); EOS % 1 % (0-3); HEMATOCRIT 32.5 % (36.0-47.0); HEMOGLOBIN 10.9 g/dL (12.0-15.5); LYMPH # 3.7 x10^3/uL (1.0-4.8); LYMPH % 13 % (24-48); MEAN CORPUSCULAR HEMOGLOBIN 30 pg (25-35); MEAN CORPUSCULAR HGB CONC 34 g/dL (31-37); MEAN CORPUSCULAR VOLUME 89 fL (79-100); MONO # 1.3 x10^3/uL (0.0-1.1); MONO % 5 % (0-9); NEUT # 23.1 x10^3/uL (1.8-7.7); NEUT % 81 % (31-73); PLATELET COUNT 290 x10^3/uL (140-400); RED BLOOD COUNT 3.66 x10^6/uL (3.50-5.40); RED CELL DISTRIBUTION WIDTH 17.2 % (11.5-14.5); WHITE BLOOD COUNT 28.5 x10^3/uL (4.0-11.0)
[2020-05-21] MEDS: MEROPENEM 500 MG in IV NORMAL SALINE 50ML 50 ML IV SCH ×3 (06:27→23:04)
[2020-05-21 06:55] LABS: ALBUMIN 2.2 g/dL (3.4-5.0); CREATININE 1.3 mg/dL (0.6-1.0); DIRECT BILIRUBIN 6.4 mg/dL (0.0-0.2); GFR 39.2; TOTAL BILIRUBIN 7.3 mg/dL (0.2-1.0); TOTAL PROTEIN 6.4 g/dL (6.4-8.2)
[2020-05-21 07:04] LABS: POTASSIUM 3.8 mmol/L (3.5-5.1)
[2020-05-21] MEDS: LACTOBACILLUS RHAMNOSUS GG 1 CAPSULE. PO SCH ×2 (08:37→21:16)
[2020-05-21] MEDS: traMADol 50 MG TABLET PO SCH (08:38)
[2020-05-21] MEDS: VANCOMYCIN 125 MG/2.5 ML ORAL SOLUTION. PO SCH ×3 (08:39→21:16)
[2020-05-21] MEDS: PANTOPRAZOLE IV PUSH 40 MG VIAL. IVP SCH (08:48)
[2020-05-21] MEDS: HYDROCORTISONE ACETATE 25 MG SUPP.RECT PR SCH ×3 (09:00→21:16)
--- NOTE | 2020-05-21 09:16 | PDOC ---
Infectious Disease Note Subjective Subjective Dr Perez wanted me to see pt again sec to elevated wbc. Pt is feeling ok, unable to do NG, abd distended, ROS ROS no n/v/d/fever Vital Sign Vital Signs Vital Signs Date Time Temp Pulse Resp B/P (MAP) Pulse Ox O2 Delivery O2 Flow Rate FiO2 05/21/20 08:38 95 Room Air 05/21/20 07:00 98.0 92 16 105/48 (67) 98.0 05/20/20 22:30 2.0 Physical Exam PHYSICAL EXAM GENERAL: The patient is in bed and looks well. alert and smiling. HEENT: Scleral icterus. Oropharynx dry. No lesions seen. NECK: Supple. LUNGS: Clear to auscultation. HEART: S1 and S2. ABDOMEN: Distended, drain in place, bowel sounds present. Tender to deep palpation. No rebound. EXTREMITIES: No gross edema or cyanosis. SKIN: Warm to touch. No signs of rash. NEUROLOGIC: Alert and answering questions appropriately. Labs Lab Laboratory Tests Test 05/20/20 20:30 05/21/20 05:40 Urine Collection Type Unknown Urine Color Rhoda Urine Clarity Cloudy Urine pH 6.5 (<5.0-8.0) Urine Specific [place] 1.020 (1.000-1.030) Urine Protein Negative mg/dL (NEG-TRACE) Urine Glucose (UA) Negative mg/dL (NEG) Urine Ketones (Stick) Negative mg/dL (NEG) Urine Blood Negative (NEG) Urine Nitrite Negative (NEG) Urine Bilirubin Moderate (NEG) Urine Urobilinogen Dipstick 0.2 mg/dL (0.2 mg/dL) Urine Leukocyte Esterase Small (NEG) Urine RBC 0 /HPF (0-2) Urine WBC 1-4 /HPF (0-4) Urine Squamous Epithelial Cells Mod /LPF Urine Bacteria Few /HPF (0-FEW) Urine Hyaline Casts Few /HPF Urine Mucus Mod /LPF Urine Yeast Present /HPF White Blood Count 28.5 x10^3/uL (4.0-11.0) Red Blood Count 3.66 x10^6/uL (3.50-5.40) Hemoglobin 10.9 g/dL (12.0-15.5) Hematocrit 32.5 % (36.0-47.0) Mean Corpuscular Volume 89 fL (79-100) Mean Corpuscular Hemoglobin 30 pg (25-35) Mean Corpuscular Hemoglobin Concent 34 g/dL (31-37) Red Cell Distribution Width 17.2 % (11.5-14.5) Platelet Count 290 x10^3/uL (140-400) Neutrophils (%) (Auto) 81 % (31-73) Lymphocytes (%) (Auto) 13 % (24-48) Monocytes (%) (Auto) 5 % (0-9) Eosinophils (%) (Auto) 1 % (0-3) Basophils (%) (Auto) 0 % (0-3) Neutrophils # (Auto) 23.1 x10^3/uL (1.8-7.7) Lymphocytes # (Auto) 3.7 x10^3/uL (1.0-4.8) Monocytes # (Auto) 1.3 x10^3/uL (0.0-1.1) Eosinophils # (Auto) 0.3 x10^3/uL (0.0-0.7) Basophils # (Auto) 0.0 x10^3/uL (0.0-0.2) Sodium Level 132 mmol/L (136-145) Potassium Level 3.8 mmol/L (3.5-5.1) Chloride Level 97 mmol/L (98-107) Carbon Dioxide Level 26 mmol/L (21-32) Anion Gap 9 (6-14) Blood Urea Nitrogen 62 mg/dL (7-20) Creatinine 1.3 mg/dL (0.6-1.0) Estimated GFR (Cockcroft-Gault) 39.2 Glucose Level 148 mg/dL (70-99) Calcium Level 9.0 mg/dL (8.5-10.1) Total Bilirubin 7.3 mg/dL (0.2-1.0) Direct Bilirubin 6.4 mg/dL (0.0-0.2) Aspartate Amino Transf (AST/SGOT) 82 U/L (15-37) Alanine Aminotransferase (ALT/SGPT) 49 U/L (14-59) Alkaline Phosphatase 572 U/L (46-116) Total Protein 6.4 g/dL (6.4-8.2) Albumin 2.2 g/dL (3.4-5.0) Micro Microbiology 05/10/20 Gram Stain - Final, Complete 05/10/20 Aerobic and Anaerobic Culture - Final, Complete 05/09/20 Blood Culture - Final, Complete NO GROWTH AFTER 5 DAYS Objective Assessment 1. Fever - better. 2. Leukocytosis - likely reactive from procedures. 3. Abdominal pain.s/p Paracentesis 1900 ml out 364 WBC 4. Ascites ? sec to obstruction. 5. Diarrhea. 6. Recent history of Clostridium difficile colitis on 04/14/2020. 7. Hyperbilirubinemia/transaminitis - ? post procedure 8. 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 She did not tolerate adjuvant chemotherapy. 9. Severe protein-calorie malnutrition. Plan Plan of Care po vanc, bid for prevention of c diff recurrence zyvox and meropenem for now Monitor labs/temp need comfort care D/w nursing ERIN CANDELARIA MD May 21, 2020 09:16
--- NOTE | 2020-05-21 11:00 | PDOC ---
PROGRESS NOTES Date of Service DATE: 05/21/20 TIME: 10:56 Subjective Subjective could pas NG tube yesterday ? due to nasal obstruction. will have IR place it. son will try to convince her now to have it. has gastric dilatation. denies having a BM. hgb 10.9 and wbc 28K bun 62 and creatinine 1.3. Objective Objective Vital Signs Date Time Temp Pulse Resp B/P (MAP) Pulse Ox O2 Delivery O2 Flow Rate FiO2 05/21/20 09:38 95 Nasal Cannula 2.0 05/21/20 07:00 98.0 92 16 105/48 (67) 98.0 Intake and Output 05/21/20 07:00 Intake Total 970 ml Balance 970 ml Intake Oral 0 ml Blood Product IV Normal Saline Flush 970 ml # Voids 4 Physical Exam Abdomen: Soft, Other (ascites. pleurix and ex/int biliary drainage tube capped) Heart: Regular rate, Normal S1, Normal S2 Extremities: No edema General: Alert HEENT: Atraumatic Lungs: Clear to auscultation Neuro: Normal speech Psych/Mental Status: Mental status NL Skin: Other (jaundiced) Assessment Assessment 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 paracentesis 05/10/20. benign cells 4. Anemia. 5. Hypokalemia treated 6. Severe protein-calorie malnutrition. 7. Fibromyalgia. 8. Hypotension treated low grade fever resolved abdominal pain better hx of c,.diff bile duct stricture ballon dilatation 05/14 . left biliary tree still dilated internal to external bile drain placed 05/17 pleurix tube placed for intermittent paracentesis depression acute blood loss anemia. hgb better after 4 units prbc suspect GI bleed pre renal azotemia susepct due to acute blood loss and GI bleed leukocytosis,.concern for infection Plan Plan of Care PPN d/c iv fluids IR to place NG tube if patient concurs. son to speak with her now labs tomorrow zovox and meropenem and po vancomycin protonix Comment Review of Relevant I have reviewed the following items betty (where applicable) has been applied. Labs Laboratory Tests Test 05/20/20 06:40 05/20/20 08:05 05/20/20 20:30 8/28/20 05:40 White Blood Count 38.6 x10^3/uL (4.0-11.0) 28.5 x10^3/uL (4.0-11.0) Red Blood Count 1.53 x10^6/uL (3.50-5.40) 3.66 x10^6/uL (3.50-5.40) Hemoglobin 4.6 g/dL (12.0-15.5) 10.9 g/dL (12.0-15.5) Hematocrit 14.4 % (36.0-47.0) 32.5 % (36.0-47.0) Mean Corpuscular Volume 94 fL (79-100) 89 fL (79-100) Mean Corpuscular Hemoglobin 30 pg (25-35) 30 pg (25-35) Mean Corpuscular Hemoglobin Concent 32 g/dL (31-37) 34 g/dL (31-37) Red Cell Distribution Width 17.4 % (11.5-14.5) 17.2 % (11.5-14.5) Platelet Count 427 x10^3/uL (140-400) 290 x10^3/uL (140-400) Neutrophils (%) (Auto) 78 % (31-73) 81 % (31-73) Lymphocytes (%) (Auto) 14 % (24-48) 13 % (24-48) Monocytes (%) (Auto) 7 % (0-9) 5 % (0-9) Eosinophils (%) (Auto) 1 % (0-3) 1 % (0-3) Basophils (%) (Auto) 1 % (0-3) 0 % (0-3) Neutrophils # (Auto) 30.0 x10^3/uL (1.8-7.7) 23.1 x10^3/uL (1.8-7.7) Lymphocytes # (Auto) 5.3 x10^3/uL (1.0-4.8) 3.7 x10^3/uL (1.0-4.8) Monocytes # (Auto) 2.8 x10^3/uL (0.0-1.1) 1.3 x10^3/uL (0.0-1.1) Eosinophils # (Auto) 0.2 x10^3/uL (0.0-0.7) 0.3 x10^3/uL (0.0-0.7) Basophils # (Auto) 0.2 x10^3/uL (0.0-0.2) 0.0 x10^3/uL (0.0-0.2) Sodium Level 131 mmol/L (136-145) 132 mmol/L (136-145) Potassium Level 5.0 mmol/L (3.5-5.1) 3.8 mmol/L (3.5-5.1) Chloride Level 97 mmol/L (98-107) 97 mmol/L (98-107) Carbon Dioxide Level 27 mmol/L (21-32) 26 mmol/L (21-32) Anion Gap 7 (6-14) 9 (6-14) Blood Urea Nitrogen 67 mg/dL (7-20) 62 mg/dL (7-20) Creatinine 1.4 mg/dL (0.6-1.0) 1.3 mg/dL (0.6-1.0) Estimated GFR (Cockcroft-Gault) 36.0 39.2 BUN/Creatinine Ratio 48 (6-20) Glucose Level 158 mg/dL (70-99) 148 mg/dL (70-99) Calcium Level 8.2 mg/dL (8.5-10.1) 9.0 mg/dL (8.5-10.1) Total Bilirubin 4.7 mg/dL (0.2-1.0) 7.3 mg/dL (0.2-1.0) Aspartate Amino Transf (AST/SGOT) 78 U/L (15-37) 82 U/L (15-37) Alanine Aminotransferase (ALT/SGPT) 44 U/L (14-59) 49 U/L (14-59) Alkaline Phosphatase 607 U/L (46-116) 572 U/L (46-116) Total Protein 5.9 g/dL (6.4-8.2) 6.4 g/dL (6.4-8.2) Albumin 1.9 g/dL (3.4-5.0) 2.2 g/dL (3.4-5.0) Albumin/Globulin Ratio 0.5 (1.0-1.7) Urine Collection Type Unknown Urine Color Rhoda Urine Clarity Cloudy Urine pH 6.5 (<5.0-8.0) Urine Specific [place] 1.020 (1.000-1.030) Urine Protein Negative mg/dL (NEG-TRACE) Urine Glucose (UA) Negative mg/dL (NEG) Urine Ketones (Stick) Negative mg/dL (NEG) Urine Blood Negative (NEG) Urine Nitrite Negative (NEG) Urine Bilirubin Moderate (NEG) Urine Urobilinogen Dipstick 0.2 mg/dL (0.2 mg/dL) Urine Leukocyte Esterase Small (NEG) Urine RBC 0 /HPF (0-2) Urine WBC 1-4 /HPF (0-4) Urine Squamous Epithelial Cells Mod /LPF Urine Bacteria Few /HPF (0-FEW) Urine Hyaline Casts Few /HPF Urine Mucus Mod /LPF Urine Yeast Present /HPF Direct Bilirubin 6.4 mg/dL (0.0-0.2) Laboratory Tests Test 05/20/20 20:30 05/21/20 05:40 Urine Collection Type Unknown Urine Color Rhoda Urine Clarity Cloudy Urine pH 6.5 (<5.0-8.0) Urine Specific [place] 1.020 (1.000-1.030) Urine Protein Negative mg/dL (NEG-TRACE) Urine Glucose (UA) Negative mg/dL (NEG) Urine Ketones (Stick) Negative mg/dL (NEG) Urine Blood Negative (NEG) Urine Nitrite Negative (NEG) Urine Bilirubin Moderate (NEG) Urine Urobilinogen Dipstick 0.2 mg/dL (0.2 mg/dL) Urine Leukocyte Esterase Small (NEG) Urine RBC 0 /HPF (0-2) Urine WBC 1-4 /HPF (0-4) Urine Squamous Epithelial Cells Mod /LPF Urine Bacteria Few /HPF (0-FEW) Urine Hyaline Casts Few /HPF Urine Mucus Mod /LPF Urine Yeast Present /HPF White Blood Count 28.5 x10^3/uL (4.0-11.0) Red Blood Count 3.66 x10^6/uL (3.50-5.40) Hemoglobin 10.9 g/dL (12.0-15.5) Hematocrit 32.5 % (36.0-47.0) Mean Corpuscular Volume 89 fL (79-100) Mean Corpuscular Hemoglobin 30 pg (25-35) Mean Corpuscular Hemoglobin Concent 34 g/dL (31-37) Red Cell Distribution Width 17.2 % (11.5-14.5) Platelet Count 290 x10^3/uL (140-400) Neutrophils (%) (Auto) 81 % (31-73) Lymphocytes (%) (Auto) 13 % (24-48) Monocytes (%) (Auto) 5 % (0-9) Eosinophils (%) (Auto) 1 % (0-3) Basophils (%) (Auto) 0 % (0-3) Neutrophils # (Auto) 23.1 x10^3/uL (1.8-7.7) Lymphocytes # (Auto) 3.7 x10^3/uL (1.0-4.8) Monocytes # (Auto) 1.3 x10^3/uL (0.0-1.1) Eosinophils # (Auto) 0.3 x10^3/uL (0.0-0.7) Basophils # (Auto) 0.0 x10^3/uL (0.0-0.2) Sodium Level 132 mmol/L (136-145) Potassium Level 3.8 mmol/L (3.5-5.1) Chloride Level 97 mmol/L (98-107) Carbon Dioxide Level 26 mmol/L (21-32) Anion Gap 9 (6-14) Blood Urea Nitrogen 62 mg/dL (7-20) Creatinine 1.3 mg/dL (0.6-1.0) Estimated GFR (Cockcroft-Gault) 39.2 Glucose Level 148 mg/dL (70-99) Calcium Level 9.0 mg/dL (8.5-10.1) Total Bilirubin 7.3 mg/dL (0.2-1.0) Direct Bilirubin 6.4 mg/dL (0.0-0.2) Aspartate Amino Transf (AST/SGOT) 82 U/L (15-37) Alanine Aminotransferase (ALT/SGPT) 49 U/L (14-59) Alkaline Phosphatase 572 U/L (46-116) Total Protein 6.4 g/dL (6.4-8.2) Albumin 2.2 g/dL (3.4-5.0) Microbiology 05/10/20 Gram Stain - Final, Complete 05/10/20 Aerobic and Anaerobic Culture - Final, Complete 05/09/20 Blood Culture - Final, Complete NO GROWTH AFTER 5 DAYS Medications Current Medications Hydroxyzine HCl (Atarax) 10 mg PRN TID PRN PO ITCHING Last administered on 05/18/20at 15:09; Start 05/07/20 at 17:00; Stop 05/21/20 at 10:54; Status DC Sertraline HCl (Zoloft) 50 mg DAILY PO Last administered on 05/09/20at 08:44; Start 05/08/20 at 09:00; Stop 05/09/20 at 11:19; Status DC Amitriptyline HCl (Elavil) 50 mg QHS PO Last administered on 05/17/20at 21:31; Start 05/07/20 at 21:00; Stop 05/20/20 at 12:08; Status DC Acetaminophen (Tylenol) 325 mg PRN Q6HRS PRN PO MILD PAIN / TEMP > 100.3'F; Start 05/07/20 at 20:00 Iohexol (Omnipaque 300 Mg/ml) 75 ml 1X ONCE IV Last administered on 05/08/20at 13:30; Start 05/08/20 at 11:45; Stop 05/08/20 at 11:46; Status DC Info (CONTRAST GIVEN -- Rx MONITORING) 1 each PRN DAILY PRN MC SEE COMMENTS; Start 05/08/20 at 11:45; Stop 05/10/20 at 11:44; Status DC Tramadol HCl (Ultram) 50 mg TID PO Last administered on 05/09/20at 07:35; Start 05/08/20 at 14:00; Stop 05/09/20 at 11:15; Status DC Potassium Chloride (Klor-Con) 40 meq 1X ONCE PO Last administered on 05/08/20at 14:10; Start 05/08/20 at 12:15; Stop 05/08/20 at 12:16; Status DC Sodium Chloride 1,000 ml @ 60 mls/hr [id number] IV Last administered on 05/09/20at 07:36; Start 05/08/20 at 12:30; Stop 05/09/20 at 11:15; Status DC Amylase/Lipase/ Protease (Zenpep 5,000) 2 cap TIDWMEALS PO Last administered on 05/16/20at 12:28; Start 05/08/20 at 13:00 Phytonadione (Vitamin K Ampule) 2 mg 1X ONCE SQ Last administered on 05/09/20at 11:34; Start 05/09/20 at 11:00; Stop 05/09/20 at 11:01; Status DC Meropenem 1 gm/ Sodium Chloride 100 ml @ 200 mls/hr Q12HR IV Last administered on 05/15/20at 08:42; Start 05/09/20 at 11:30; Stop 05/15/20 at 09:01; Status DC Linezolid/Dextrose 300 ml @ 300 mls/hr Q12HR IV Last administered on 05/15/20at 08:42; Start 05/09/20 at 12:00; Stop 05/15/20 at 09:01; Status DC Acetaminophen/ Hydrocodone Bitart (Lortab 5/325) 1 tab PRN Q4HRS PRN PO MODERATE - SEVERE PAIN Last administered on 05/16/20at 18:37; Start 05/09/20 at 11:15; Stop 05/18/20 at 10:35; Status DC Vancomycin HCl (Vancomycin Oral Solution) 125 mg [id number] PO Last administered on 05/21/20at 08:39; Start 05/09/20 at 14:00 Lactobacillus Rhamnosus (Culturelle) 1 cap BID PO Last administered on 05/21/20at 08:37; Start 05/09/20 at 21:00 Lidocaine HCl (Buffered Lidocaine 1%) 3 ml STK-MED ONCE .ROUTE ; Start 05/10/20 at 08:09; Stop 05/10/20 at 08:09; Status DC Lidocaine HCl (Buffered Lidocaine 1%) 6 ml 1X ONCE INJ Last administered on 05/10/20at 08:15; Start 05/10/20 at 08:15; Stop 05/10/20 at 08:19; Status DC Lidocaine HCl (Buffered Lidocaine 1%) 3 ml 1X ONCE INJ ; Start 05/10/20 at 09:00; Stop 05/10/20 at 09:01; Status DC Potassium Chloride (Klor-Con) 20 meq 1X ONCE PO Last administered on 05/10/20at 10:29; Start 05/10/20 at 10:30; Stop 05/10/20 at 10:31; Status DC Levofloxacin/ Dextrose 100 ml @ 100 mls/hr 1X ONCE IV Last administered on 05/12/20at 14:15; Start 05/12/20 at 09:00; Stop 05/12/20 at 09:59; Status DC Ringer's Solution 1,000 ml @ 30 mls/hr Q24H IV Last administered on 05/12/20at 09:39; Start 05/12/20 at 07:00; Stop 05/12/20 at 18:59; Status DC Prochlorperazine Edisylate (Compazine) 5 mg PACU PRN PRN IV NAUSEA, MRX1; Start 05/12/20 at 07:00; Stop 05/13/20 at 06:59; Status DC Ringer's Solution 1,000 ml @ 75 mls/hr 1X ONCE IV Last administered on 05/12/20at 11:46; Start 05/12/20 at 07:30; Stop 05/12/20 at 20:49; Status DC Iohexol (Omnipaque 300 Mg/ml) 100 ml STK-MED ONCE .ROUTE ; Start 05/12/20 at 09:24; Stop 05/12/20 at 09:24; Status DC Propofol (Diprivan) 200 mg STK-MED ONCE IV ; Start 05/12/20 at 10:12; Stop 05/12/20 at 10:12; Status DC Succinylcholine Chloride (Anectine) 200 mg STK-MED ONCE .ROUTE ; Start 05/10/20 at 09:00; Stop 05/12/20 at 12:52; Status DC Ephedrine Sulfate (ePHEDrine PF IN SALINE SYRINGE) 50 mg STK-MED ONCE IV ; Start 05/10/20 at 09:00; Stop 05/12/20 at 12:52; Status DC Morphine Sulfate (Morphine Sulfate) 1 mg PRN Q4HRS PRN IV PAIN Last administered on 05/18/20at 08:14; Start 05/12/20 at 13:15; Stop 05/18/20 at 10:35; Status DC Ondansetron HCl (Zofran) 4 mg PRN Q6HRS PRN IVP NAUSEA/VOMITING Last administered on 05/19/20at 08:58; Start 05/12/20 at 13:15 Tramadol HCl (Ultram) 50 mg TID PO Last administered on 05/21/20at 08:38; Start 05/12/20 at 14:00; Stop 05/21/20 at 10:54; Status DC Spironolactone (Aldactone) 50 mg BID PO Last administered on 05/15/20at 08:43; Start 05/13/20 at 12:00; Stop 05/15/20 at 12:34; Status DC Hydrocortisone Acetate (Anucort-Hc) 25 mg BID LA Last administered on 05/20/20at 21:30; Start 05/13/20 at 12:00 Lidocaine/ Epinephrine (LIDOCAINE 1%-EPI 1:100,000 Multi-Dose) 20 ml STK-MED ONCE .ROUTE ; Start 05/14/20 at 10:55; Stop 05/14/20 at 10:55; Status DC Iohexol (Omnipaque 240 Mg/ml) 50 ml STK-MED ONCE .ROUTE ; Start 05/14/20 at 10:59; Stop 05/14/20 at 11:00; Status DC Midazolam HCl (Versed) 5 mg STK-MED ONCE .ROUTE ; Start 05/14/20 at 11:18; Stop 05/14/20 at 11:18; Status DC Fentanyl Citrate (Fentanyl 2ml Vial) 100 mcg STK-MED ONCE .ROUTE ; Start 05/14/20 at 11:18; Stop 05/14/20 at 11:18; Status DC Midazolam HCl (Versed) 5 mg 1X ONCE IV Last administered on 05/14/20at 12:41; Start 05/14/20 at 11:45; Stop 05/14/20 at 11:46; Status DC Fentanyl Citrate (Fentanyl 2ml Vial) 100 mcg 1X ONCE IV Last administered on 05/14/20at 12:41; Start 05/14/20 at 11:45; Stop 05/14/20 at 11:46; Status DC Lidocaine/ Epinephrine (LIDOCAINE 1%-EPI 1:100,000 Multi-Dose) 20 ml 1X ONCE INJ Last administered on 05/14/20at 12:40; Start 05/14/20 at 11:45; Stop 05/14/20 at 11:46; Status DC Iohexol (Omnipaque 240 Mg/ml) 50 ml 1X ONCE IJ Last administered on 05/14/20at 12:40; Start 05/14/20 at 11:45; Stop 05/14/20 at 11:46; Status DC Info (CONTRAST GIVEN -- Rx MONITORING) 1 each PRN DAILY PRN MC SEE COMMENTS; Start 05/14/20 at 11:45; Stop 05/16/20 at 11:44; Status DC Fentanyl Citrate (Fentanyl 2ml Vial) 100 mcg STK-MED ONCE .ROUTE ; Start 05/14/20 at 13:15; Stop 05/14/20 at 13:15; Status DC Iohexol (Omnipaque 300 Mg/ml) 100 ml STK-MED ONCE .ROUTE ; Start 05/14/20 at 13:27; Stop 05/14/20 at 13:28; Status DC Albumin Human 100 ml @ 100 mls/hr 1X ONCE IV ; Start 05/16/20 at 11:00; Stop 05/16/20 at 11:59; Status DC Lidocaine HCl (Buffered Lidocaine 1%) 3 ml STK-MED ONCE .ROUTE ; Start 05/17/20 at 13:11; Stop 05/17/20 at 13:12; Status DC Iohexol (Omnipaque 240 Mg/ml) 50 ml STK-MED ONCE .ROUTE ; Start 05/17/20 at 13:15; Stop 05/17/20 at 13:16; Status DC Albumin Human 100 ml @ As Directed STK-MED ONCE IV ; Start 05/17/20 at 13:16; Stop 05/17/20 at 13:17; Status DC Cefazolin Sodium (Ancef) 1 gm STK-MED ONCE IVP ; Start 05/17/20 at 13:16; Stop 05/17/20 at 13:17; Status DC Midazolam HCl (Versed) 2 mg STK-MED ONCE .ROUTE ; Start 05/17/20 at 13:16; Stop 05/17/20 at 13:17; Status DC Fentanyl Citrate (Fentanyl 2ml Vial) 100 mcg STK-MED ONCE .ROUTE ; Start 05/17/20 at 13:17; Stop 05/17/20 at 13:17; Status DC Cefazolin Sodium (Ancef) 1 gm STK-MED ONCE IVP ; Start 05/17/20 at 13:17; Stop 05/17/20 at 13:17; Status DC Lidocaine HCl (Buffered Lidocaine 1%) 3 ml 1X ONCE IJ Last administered on 05/17/20at 13:45; Start 05/17/20 at 13:45; Stop 05/17/20 at 13:51; Status DC Midazolam HCl (Versed) 2 mg 1X ONCE IV Last administered on 05/17/20at 13:30; Start 05/17/20 at 13:45; Stop 05/17/20 at 13:51; Status DC Fentanyl Citrate (Fentanyl 2ml Vial) 100 mcg 1X ONCE IV Last administered on 05/17/20at 13:30; Start 05/17/20 at 13:45; Stop 05/17/20 at 13:51; Status DC Cefazolin Sodium (Ancef) 1 gm 1X ONCE IVP Last administered on 05/17/20at 13:55; Start 05/17/20 at 13:45; Stop 05/17/20 at 13:51; Status DC Albumin Human 100 ml @ 100 mls/hr 1X ONCE IV Last administered on 05/17/20at 13:45; Start 05/17/20 at 13:45; Stop 05/17/20 at 14:44; Status DC Iohexol (Omnipaque 240 Mg/ml) 50 ml 1X ONCE IJ Last administered on 05/17/20at 14:07; Start 05/17/20 at 13:45; Stop 05/17/20 at 13:51; Status DC Info (CONTRAST GIVEN -- Rx MONITORING) 1 each PRN DAILY PRN MC SEE COMMENTS; Start 05/17/20 at 14:00; Stop 05/19/20 at 13:59; Status DC Morphine Sulfate (Morphine Sulfate) 2 mg PRN Q4HRS PRN IV PAIN Last administered on 05/21/20at 03:04; Start 05/18/20 at 10:45 Mirtazapine (Remeron) 7.5 mg QHS PO ; Start 05/18/20 at 21:00; Stop 05/20/20 at 12:08; Status DC Sodium Chloride 1,000 ml @ 75 mls/hr [id number] IV Last administered on 05/18/20at 12:02; Start 05/18/20 at 10:45; Stop 05/21/20 at 10:54; Status DC Acetaminophen/ Hydrocodone Bitart (Lortab 10/325) 1 tab PRN Q4HRS PRN PO MODERATE PAIN Last administered on 05/18/20at 12:01; Start 05/18/20 at 10:45 Pantoprazole Sodium (Protonix) 40 mg DAILYAC PO ; Start 05/19/20 at 07:30; Stop 05/20/20 at 11:51; Status DC Amino Acids/ Glycerin/ Electrolytes 1,000 ml @ 50 mls/hr Q20H IV Last administered on 05/20/20at 03:17; Start 05/19/20 at 08:45 Promethazine HCl (Phenergan Supp) 25 mg PRN Q8HRS PRN LA NAUSEA/VOMITING Last administered on 05/19/20at 11:58; Start 05/19/20 at 10:45 Fentanyl (Duragesic 12mcg/ Hr Patch) 1 patch Q3DAYS TD Last administered on 05/19/20 17:43; Start 05/19/20 at 18:00 Menthol/Methyl Salicylate (B[place]ay Greaseless Cream) 1 amparo PRN QID PRN TP MUSCLE PAIN Last administered on 05/19/20at 21:43; Start 05/19/20 at 21:15 Pantoprazole Sodium (PROTONIX VIAL for IV PUSH) 40 mg DAILYAC IVP Last administered on 05/21/20at 08:48; Start 05/20/20 at 13:00 Linezolid/Dextrose 300 ml @ 300 mls/hr Q12HR IV Last administered on 05/21/20at 08:48; Start 05/20/20 at 13:00 Meropenem 500 mg/ Sodium Chloride 50 ml @ 100 mls/hr Q8HRS IV Last administered on 05/21/20at 06:27; Start 05/20/20 at 13:00 Active Scripts Active Tramadol Hcl 50 Mg Tablet 50 Mg PO TID Flagyl (Metronidazole) 500 Mg Tablet 500 Mg PO Q8HRS Cephalexin 250 Mg Capsule 500 Mg PO TID Zoloft (Sertraline Hcl) 50 Mg Tablet 50 Mg PO DAILY Reported Amitriptyline Hcl 50 Mg Tablet 50 Mg PO QHS Hydroxyzine Hcl 10 Mg Tablet 10 Mg PO PRN TID PRN Vitals/I & O Vital Sign - Last 24 Hours 05/20/20 05/20/20 05/20/20 05/20/20 11:00 11:13 12:20 13:30 Temp 96.3 97.0 98.1 98.0 96.3 97.0 98.1 98.0 Pulse 103 103 103 104 Resp 16 18 20 19 B/P (MAP) 102/59 (73) 110/60 110/70 114/67 Pulse Ox 100 O2 Delivery Room Air 05/20/20 05/20/20 05/20/20 05/20/20 13:49 14:30 15:00 17:58 Temp 98.0 98.0 Pulse 98 Resp 20 19 16 19 B/P (MAP) 119/84 (96) Pulse Ox 94 93 98 94 O2 Delivery Nasal Cannula Nasal Cannula Room Air Nasal Cannula O2 Flow Rate 2.0 2.0 2.0 05/20/20 05/20/20 05/20/20 05/20/20 18:20 18:33 19:00 19:30 Temp 98.0 98.0 97.2 97.2 98.0 98.0 97.2 97.2 Pulse 98 110 104 104 Resp 19 20 16 20 B/P (MAP) 119/84 113/59 96/56 (69) 96/56 Pulse Ox 91 O2 Delivery Room Air 05/20/20 05/20/20 05/20/20 05/20/20 19:37 20:00 20:30 21:30 Temp 97.0 97.0 Pulse 100 Resp 20 18 B/P (MAP) 100/52 Pulse Ox 93 93 O2 Delivery Nasal Cannula Nasal Cannula Nasal Cannula O2 Flow Rate 2.0 2.0 05/20/20 05/20/20 05/20/20 05/20/20 21:30 22:15 22:30 23:00 Temp 97.3 97.4 99.0 97.3 97.4 99.0 Pulse 98 98 103 Resp 18 18 16 B/P (MAP) 102/52 100/52 99/47 (64) Pulse Ox 93 91 O2 Delivery Nasal Cannula Room Air O2 Flow Rate 2.0 05/20/20 05/20/20 05/21/20 05/21/20 23:43 23:58 00:08 01:00 Temp 98.7 97.6 98.0 98.7 97.6 98.0 Pulse 106 101 99 Resp 18 18 18 18 B/P (MAP) 93/47 92/45 109/58 Pulse Ox 91 O2 Delivery Room Air 05/21/20 05/21/20 05/21/20 05/21/20 02:06 02:37 03:00 03:00 Temp 97.6 97.6 97.6 97.6 97.6 97.6 97.6 97.6 Pulse 101 101 97 101 Resp 16 16 18 16 B/P (MAP) 113/54 113/54 112/56 113/54 (73) Pulse Ox 96 O2 Delivery Room Air 05/21/20 05/21/20 05/21/20 05/21/20 03:04 03:35 04:00 05:00 Temp 97.6 97.5 97.6 97.5 Pulse 98 98 Resp 18 16 20 B/P (MAP) 112/56 105/56 Pulse Ox 96 O2 Delivery Room Air Room Air 05/21/20 05/21/20 05/21/20 05/21/20 06:15 07:00 08:00 08:38 Temp 97.8 98.0 97.8 98.0 Pulse 92 92 Resp 16 16 B/P (MAP) 108/55 105/48 (67) Pulse Ox 95 95 O2 Delivery Room Air Nasal Cannula Room Air O2 Flow Rate 2.0 05/21/20 09:38 Pulse Ox 95 O2 Delivery Nasal Cannula O2 Flow Rate 2.0 Intake and Output 05/20/20 05/20/20 05/21/20 15:00 23:00 07:00 Intake Total 620 ml 350 ml 0 ml Balance 620 ml 350 ml 0 ml Justifications for Admission Other Justification Nutrition Consultation Dietary Evaluation: Recommendations by RD: Dietary education by RD, Protein supplementation, PPN/TPN Comments: REC: Continue w/ PPN as ordered for nutrition support needs at this time. 34.8 g protein, 294 g dextrose per 1200 ml at 50 ml/ hr.Continue and advance diet per MD. Expected Outcomes/Goals: to meet >75% est nutr needs Malnutrition Findings: Muscle Mass (Severe): Severe Depletion Food and Nutrition Intake (Sev: <50% est energy req 5days Body Fat Depletion (Non Severe: Mod to Severe Weight Status: Underweight Fluid Accumulation (Severe): Severe SRINIVASA ABDULLAHI MD May 21, 2020 11:00
--- NOTE | 2020-05-21 15:35 | PDOC ---
G I PROGRESS NOTE Subjective No emesis, but looks miserable. Unable to tolerate NG placement, so abandoned. Objective Cytology on larger volume of ascites positive for atypical cells. Further stains to be done. Physical Exam Cachectic/icteric Lungs clear. RRR Abdomen soft though ascites present. Review of Relevant I have reviewed the following items betty (where applicable) has been applied. Labs Laboratory Tests Test 05/20/20 06:40 05/20/20 08:05 05/20/20 20:30 05/21/20 05:40 White Blood Count 38.6 x10^3/uL (4.0-11.0) 28.5 x10^3/uL (4.0-11.0) Red Blood Count 1.53 x10^6/uL (3.50-5.40) 3.66 x10^6/uL (3.50-5.40) Hemoglobin 4.6 g/dL (12.0-15.5) 10.9 g/dL (12.0-15.5) Hematocrit 14.4 % (36.0-47.0) 32.5 % (36.0-47.0) Mean Corpuscular Volume 94 fL (79-100) 89 fL (79-100) Mean Corpuscular Hemoglobin 30 pg (25-35) 30 pg (25-35) Mean Corpuscular Hemoglobin Concent 32 g/dL (31-37) 34 g/dL (31-37) Red Cell Distribution Width 17.4 % (11.5-14.5) 17.2 % (11.5-14.5) Platelet Count 427 x10^3/uL (140-400) 290 x10^3/uL (140-400) Neutrophils (%) (Auto) 78 % (31-73) 81 % (31-73) Lymphocytes (%) (Auto) 14 % (24-48) 13 % (24-48) Monocytes (%) (Auto) 7 % (0-9) 5 % (0-9) Eosinophils (%) (Auto) 1 % (0-3) 1 % (0-3) Basophils (%) (Auto) 1 % (0-3) 0 % (0-3) Neutrophils # (Auto) 30.0 x10^3/uL (1.8-7.7) 23.1 x10^3/uL (1.8-7.7) Lymphocytes # (Auto) 5.3 x10^3/uL (1.0-4.8) 3.7 x10^3/uL (1.0-4.8) Monocytes # (Auto) 2.8 x10^3/uL (0.0-1.1) 1.3 x10^3/uL (0.0-1.1) Eosinophils # (Auto) 0.2 x10^3/uL (0.0-0.7) 0.3 x10^3/uL (0.0-0.7) Basophils # (Auto) 0.2 x10^3/uL (0.0-0.2) 0.0 x10^3/uL (0.0-0.2) Sodium Level 131 mmol/L (136-145) 132 mmol/L (136-145) Potassium Level 5.0 mmol/L (3.5-5.1) 3.8 mmol/L (3.5-5.1) Chloride Level 97 mmol/L (98-107) 97 mmol/L (98-107) Carbon Dioxide Level 27 mmol/L (21-32) 26 mmol/L (21-32) Anion Gap 7 (6-14) 9 (6-14) Blood Urea Nitrogen 67 mg/dL (7-20) 62 mg/dL (7-20) Creatinine 1.4 mg/dL (0.6-1.0) 1.3 mg/dL (0.6-1.0) Estimated GFR (Cockcroft-Gault) 36.0 39.2 BUN/Creatinine Ratio 48 (6-20) Glucose Level 158 mg/dL (70-99) 148 mg/dL (70-99) Calcium Level 8.2 mg/dL (8.5-10.1) 9.0 mg/dL (8.5-10.1) Total Bilirubin 4.7 mg/dL (0.2-1.0) 7.3 mg/dL (0.2-1.0) Aspartate Amino Transf (AST/SGOT) 78 U/L (15-37) 82 U/L (15-37) Alanine Aminotransferase (ALT/SGPT) 44 U/L (14-59) 49 U/L (14-59) Alkaline Phosphatase 607 U/L (46-116) 572 U/L (46-116) Total Protein 5.9 g/dL (6.4-8.2) 6.4 g/dL (6.4-8.2) Albumin 1.9 g/dL (3.4-5.0) 2.2 g/dL (3.4-5.0) Albumin/Globulin Ratio 0.5 (1.0-1.7) Urine Collection Type Unknown Urine Color Rhoda Urine Clarity Cloudy Urine pH 6.5 (<5.0-8.0) Urine Specific [place] 1.020 (1.000-1.030) Urine Protein Negative mg/dL (NEG-TRACE) Urine Glucose (UA) Negative mg/dL (NEG) Urine Ketones (Stick) Negative mg/dL (NEG) Urine Blood Negative (NEG) Urine Nitrite Negative (NEG) Urine Bilirubin Moderate (NEG) Urine Urobilinogen Dipstick 0.2 mg/dL (0.2 mg/dL) Urine Leukocyte Esterase Small (NEG) Urine RBC 0 /HPF (0-2) Urine WBC 1-4 /HPF (0-4) Urine Squamous Epithelial Cells Mod /LPF Urine Bacteria Few /HPF (0-FEW) Urine Hyaline Casts Few /HPF Urine Mucus Mod /LPF Urine Yeast Present /HPF Direct Bilirubin 6.4 mg/dL (0.0-0.2) Laboratory Tests Test 05/20/20 20:30 05/21/20 05:40 Urine Collection Type Unknown Urine Color Rhoda Urine Clarity Cloudy Urine pH 6.5 (<5.0-8.0) Urine Specific [place] 1.020 (1.000-1.030) Urine Protein Negative mg/dL (NEG-TRACE) Urine Glucose (UA) Negative mg/dL (NEG) Urine Ketones (Stick) Negative mg/dL (NEG) Urine Blood Negative (NEG) Urine Nitrite Negative (NEG) Urine Bilirubin Moderate (NEG) Urine Urobilinogen Dipstick 0.2 mg/dL (0.2 mg/dL) Urine Leukocyte Esterase Small (NEG) Urine RBC 0 /HPF (0-2) Urine WBC 1-4 /HPF (0-4) Urine Squamous Epithelial Cells Mod /LPF Urine Bacteria Few /HPF (0-FEW) Urine Hyaline Casts Few /HPF Urine Mucus Mod /LPF Urine Yeast Present /HPF White Blood Count 28.5 x10^3/uL (4.0-11.0) Red Blood Count 3.66 x10^6/uL (3.50-5.40) Hemoglobin 10.9 g/dL (12.0-15.5) Hematocrit 32.5 % (36.0-47.0) Mean Corpuscular Volume 89 fL (79-100) Mean Corpuscular Hemoglobin 30 pg (25-35) Mean Corpuscular Hemoglobin Concent 34 g/dL (31-37) Red Cell Distribution Width 17.2 % (11.5-14.5) Platelet Count 290 x10^3/uL (140-400) Neutrophils (%) (Auto) 81 % (31-73) Lymphocytes (%) (Auto) 13 % (24-48) Monocytes (%) (Auto) 5 % (0-9) Eosinophils (%) (Auto) 1 % (0-3) Basophils (%) (Auto) 0 % (0-3) Neutrophils # (Auto) 23.1 x10^3/uL (1.8-7.7) Lymphocytes # (Auto) 3.7 x10^3/uL (1.0-4.8) Monocytes # (Auto) 1.3 x10^3/uL (0.0-1.1) Eosinophils # (Auto) 0.3 x10^3/uL (0.0-0.7) Basophils # (Auto) 0.0 x10^3/uL (0.0-0.2) Sodium Level 132 mmol/L (136-145) Potassium Level 3.8 mmol/L (3.5-5.1) Chloride Level 97 mmol/L (98-107) Carbon Dioxide Level 26 mmol/L (21-32) Anion Gap 9 (6-14) Blood Urea Nitrogen 62 mg/dL (7-20) Creatinine 1.3 mg/dL (0.6-1.0) Estimated GFR (Cockcroft-Gault) 39.2 Glucose Level 148 mg/dL (70-99) Calcium Level 9.0 mg/dL (8.5-10.1) Total Bilirubin 7.3 mg/dL (0.2-1.0) Direct Bilirubin 6.4 mg/dL (0.0-0.2) Aspartate Amino Transf (AST/SGOT) 82 U/L (15-37) Alanine Aminotransferase (ALT/SGPT) 49 U/L (14-59) Alkaline Phosphatase 572 U/L (46-116) Total Protein 6.4 g/dL (6.4-8.2) Albumin 2.2 g/dL (3.4-5.0) Microbiology 05/10/20 Gram Stain - Final, Complete 05/10/20 Aerobic and Anaerobic Culture - Final, Complete 05/09/20 Blood Culture - Final, Complete NO GROWTH AFTER 5 DAYS Bilirubin plateaued; may reflect fraction bound to albumin which takes longer to go away. Other LFT's better. Vitals/I & O Vital Sign - Last 24 Hours 05/20/20 05/20/20 05/20/20 05/20/20 17:58 18:20 18:33 19:00 Temp 98.0 98.0 97.2 98.0 98.0 97.2 Pulse 98 110 104 Resp 19 19 20 16 B/P (MAP) 119/84 113/59 96/56 (69) Pulse Ox 94 91 O2 Delivery Nasal Cannula Room Air O2 Flow Rate 2.0 05/20/20 05/20/20 05/20/20 05/20/20 19:30 19:37 20:00 20:30 Temp 97.2 97.0 97.2 97.0 Pulse 104 100 Resp 20 20 18 B/P (MAP) 96/56 100/52 Pulse Ox 93 O2 Delivery Nasal Cannula Nasal Cannula O2 Flow Rate 2.0 05/20/20 05/20/20 05/20/20 05/20/20 21:30 21:30 22:15 22:30 Temp 97.3 97.4 97.3 97.4 Pulse 98 98 Resp 18 18 B/P (MAP) 102/52 100/52 Pulse Ox 93 93 O2 Delivery Nasal Cannula Nasal Cannula O2 Flow Rate 2.0 2.0 05/20/20 05/20/20 05/20/20 05/21/20 23:00 23:43 23:58 00:08 Temp 99.0 98.7 97.6 99.0 98.7 97.6 Pulse 103 106 101 Resp 16 18 18 18 B/P (MAP) 99/47 (64) 93/47 92/45 Pulse Ox 91 91 O2 Delivery Room Air Room Air 05/21/20 05/21/20 05/21/20 05/21/20 01:00 02:06 02:37 03:00 Temp 98.0 97.6 97.6 97.6 98.0 97.6 97.6 97.6 Pulse 99 101 101 97 Resp 18 16 16 18 B/P (MAP) 109/58 113/54 113/54 112/56 05/21/20 05/21/20 05/21/20 05/21/20 03:00 03:04 03:35 04:00 Temp 97.6 97.6 97.6 97.6 Pulse 101 98 Resp 16 18 16 16 B/P (MAP) 113/54 (73) 112/56 Pulse Ox 96 96 O2 Delivery Room Air Room Air Room Air 05/21/20 05/21/20 05/21/20 05/21/20 05:00 06:15 07:00 08:00 Temp 97.5 97.8 98.0 97.5 97.8 98.0 Pulse 98 92 92 Resp 20 16 16 B/P (MAP) 105/56 108/55 105/48 (67) Pulse Ox 95 O2 Delivery Room Air Nasal Cannula O2 Flow Rate 2.0 05/21/20 05/21/20 05/21/20 05/21/20 08:38 09:38 11:00 15:00 Temp 97.9 97.7 97.9 97.7 Pulse 84 96 Resp 16 16 B/P (MAP) 106/61 (76) 112/52 (72) Pulse Ox 95 95 94 96 O2 Delivery Room Air Nasal Cannula Room Air Room Air O2 Flow Rate 2.0 Intake and Output 05/20/20 05/20/20 05/21/20 15:00 23:00 07:00 Intake Total 620 ml 350 ml 0 ml Balance 620 ml 350 ml 0 ml Assessment GOO? From drain? 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 Plan of Care Note Await pending stains. Palliative/comfort care? Will check KUB re: whether safe to feed. Justicifation of Admission Dx: Justifications for Admission: Justification of Admission Dx: Yes SRINIVASA OTERO MD May 21, 2020 15:35
[2020-05-21] MEDS: AMINO AC 3%/ELECTROLYTE/GLYCER 1,000 ML IV SCH (20:45)
[2020-05-22] MEDS: MORPHINE SULFATE 2 MG/ML VIAL. IV PRN ×2 (02:23→13:44)
[2020-05-22 03:00] VITALS: BP 107/54
[2020-05-22] MEDS: AMINO AC 3%/ELECTROLYTE/GLYCER 1,000 ML IV SCH ×2 (04:47→20:08)
[2020-05-22] MEDS: HYDROcodone/APAP 10/325 1 TAB TABLET PO PRN ×3 (05:27→20:07)
[2020-05-22] MEDS: MEROPENEM 500 MG in IV NORMAL SALINE 50ML 50 ML IV SCH ×3 (06:35→23:18)
--- NOTE | 2020-05-22 06:56 | PDOC ---
Infectious Disease Note Vital Sign Vital Signs Vital Signs Date Time Temp Pulse Resp B/P (MAP) Pulse Ox O2 Delivery O2 Flow Rate FiO2 05/22/20 06:27 Room Air 05/22/20 05:27 18 97 05/22/20 03:00 97.9 81 107/54 (71) 97.9 05/21/20 09:38 2.0 Objective Assessment Plan Plan of Care duplicate ERIN CANDELARIA MD May 22, 2020 06:56
--- NOTE | 2020-05-22 06:56 | PDOC ---
Infectious Disease Note Subjective Subjective pt is up in chair, no new complaints, cont to have some abd discomfort ROS ROS no n/v/d/ Vital Sign Vital Signs Vital Signs Date Time Temp Pulse Resp B/P (MAP) Pulse Ox O2 Delivery O2 Flow Rate FiO2 05/22/20 06:27 Room Air 05/22/20 05:27 18 97 05/22/20 03:00 97.9 81 107/54 (71) 97.9 05/21/20 09:38 2.0 Physical Exam PHYSICAL EXAM GENERAL: The patient is in bed and looks well. alert and smiling. HEENT: Scleral icterus. Oropharynx dry. No lesions seen. NECK: Supple. LUNGS: Clear to auscultation. HEART: S1 and S2. ABDOMEN: Distended, drain in place, bowel sounds present. Tender to deep palpation. No rebound. EXTREMITIES: No gross edema or cyanosis. SKIN: Warm to touch. No signs of rash. NEUROLOGIC: Alert and answering questions appropriately. Labs Micro Microbiology 05/10/20 Gram Stain - Final, Complete 05/10/20 Aerobic and Anaerobic Culture - Final, Complete 05/09/20 Blood Culture - Final, Complete NO GROWTH AFTER 5 DAYS Objective Assessment 1. Fever - better. 2. Leukocytosis - improved 3. Abdominal pain.s/p Paracentesis 1900 ml out 364 WBC 4. Ascites ? sec to obstruction. 5. Diarrhea. 6. Recent history of Clostridium difficile colitis on 04/14/2020. 7. Hyperbilirubinemia/transaminitis - ? post procedure 8. 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 She did not tolerate adjuvant chemotherapy. 9. Severe protein-calorie malnutrition. Plan Plan of Care po vanc, bid for prevention of c diff recurrence zyvox and meropenem for now Monitor labs/temp need comfort care D/w nursing ERIN CANDELARIA MD May 22, 2020 06:56
[2020-05-22 07:00] VITALS: BP 108/63
[2020-05-22 07:24] LABS: BASO % 1 % (0-3); EOS # 0.2 x10^3/uL (0.0-0.7); EOS % 2 % (0-3); HEMATOCRIT 25.9 % (36.0-47.0); HEMOGLOBIN 8.9 g/dL (12.0-15.5); LYMPH # 1.4 x10^3/uL (1.0-4.8); LYMPH % 13 % (24-48); MEAN CORPUSCULAR HEMOGLOBIN 31 pg (25-35); MEAN CORPUSCULAR HGB CONC 35 g/dL (31-37); MEAN CORPUSCULAR VOLUME 91 fL (79-100); MONO # 0.7 x10^3/uL (0.0-1.1); MONO % 7 % (0-9); NEUT # 8.3 x10^3/uL (1.8-7.7); NEUT % 77 % (31-73); PLATELET COUNT 203 x10^3/uL (140-400); RED BLOOD COUNT 2.85 x10^6/uL (3.50-5.40); RED CELL DISTRIBUTION WIDTH 17.5 % (11.5-14.5); WHITE BLOOD COUNT 10.7 x10^3/uL (4.0-11.0)
[2020-05-22 07:44] LABS: ALBUMIN 1.8 g/dL (3.4-5.0); ALBUMIN/GLOBULIN RATIO 0.5 (1.0-1.7); CALCIUM 8.4 mg/dL (8.5-10.1); CREATININE 0.8 mg/dL (0.6-1.0); GFR 68.7; POTASSIUM 4.3 mmol/L (3.5-5.1); TOTAL BILIRUBIN 6.5 mg/dL (0.2-1.0); TOTAL PROTEIN 5.8 g/dL (6.4-8.2)
[2020-05-22] MEDS: VANCOMYCIN 125 MG/2.5 ML ORAL SOLUTION. PO SCH ×2 (08:18→23:19)
[2020-05-22] MEDS: HYDROCORTISONE ACETATE 25 MG SUPP.RECT PR SCH ×2 (08:20→21:30)
[2020-05-22] MEDS: LACTOBACILLUS RHAMNOSUS GG 1 CAPSULE. PO SCH ×2 (08:20→21:19)
[2020-05-22] MEDS: fentaNYL 12MCG/HR PATCH 1 PATCH PATCH.TD72 TD SCH (08:20)
[2020-05-22] MEDS: METHYL SALICYLATE/MENTHOL TOPICAL CREAM 57GM TUBE. TP PRN (08:21)
[2020-05-22] MEDS: PANTOPRAZOLE IV PUSH 40 MG VIAL. IVP SCH (08:21)
[2020-05-22 11:00] VITALS: BP 118/69
--- NOTE | 2020-05-22 11:27 | PDOC ---
PROGRESS NOTES Date of Service DATE: 05/22/20 TIME: 11:22 Subjective Subjective feels the same. discussed hospice and she is leaning that way but says her does not want that. lab reviewed hydration better wbc normal. hgb down 2 points but on PPN. bilirubin down a little. blood cultures neg so far repeat peritoneal fluids with atypical cells and stains pending. Objective Objective Vital Signs Date Time Temp Pulse Resp B/P (MAP) Pulse Ox O2 Delivery O2 Flow Rate FiO2 05/22/20 11:00 98.7 76 18 118/69 (85) 99 Room Air 98.7 05/21/20 09:38 2.0 Intake and Output 05/22/20 07:00 Intake Total 1000 ml Output Total 650 ml Balance 350 ml IV Total 1000 ml Output Urine Total 150 ml Stool Total 500 ml # Voids 2 # Bowel Movements 2 Physical Exam Abdomen: Soft, Other (more ascities) Heart: Regular rate, Normal S1, Normal S2 Extremities: No edema General: Alert HEENT: Atraumatic Lungs: Clear to auscultation Neuro: Normal speech, Strength at 5/5 X4 ext Skin: Other (jaundiced) Assessment Assessment 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 paracentesis 05/10/20. benign cells 4. Anemia. 5. Hypokalemia treated 6. Severe protein-calorie malnutrition. 7. Fibromyalgia. 8. Hypotension treated low grade fever resolved abdominal pain better hx of c,.diff bile duct stricture ballon dilatation 05/14 . left biliary tree still dilated internal to external bile drain placed 05/17 pleurix tube placed for intermittent paracentesis depression acute blood loss anemia. hgb better after 4 units prbc suspect GI bleed pre renal azotemia improved leukocytosis resolved Plan Plan of Care continue PPN KUB today patient to discuss hospice with family therapeutic paracentesis sunday per IR ? continue iv vancomycin and iv meropenem and po vancomycin continue iv protonix Comment Review of Relevant I have reviewed the following items betty (where applicable) has been applied. Labs Laboratory Tests Test 05/20/20 20:30 05/21/20 05:40 05/22/20 07:00 Urine Collection Type Unknown Urine Color Rhoda Urine Clarity Cloudy Urine pH 6.5 (<5.0-8.0) Urine Specific [place] 1.020 (1.000-1.030) Urine Protein Negative mg/dL (NEG-TRACE) Urine Glucose (UA) Negative mg/dL (NEG) Urine Ketones (Stick) Negative mg/dL (NEG) Urine Blood Negative (NEG) Urine Nitrite Negative (NEG) Urine Bilirubin Moderate (NEG) Urine Urobilinogen Dipstick 0.2 mg/dL (0.2 mg/dL) Urine Leukocyte Esterase Small (NEG) Urine RBC 0 /HPF (0-2) Urine WBC 1-4 /HPF (0-4) Urine Squamous Epithelial Cells Mod /LPF Urine Bacteria Few /HPF (0-FEW) Urine Hyaline Casts Few /HPF Urine Mucus Mod /LPF Urine Yeast Present /HPF White Blood Count 28.5 x10^3/uL (4.0-11.0) 10.7 x10^3/uL (4.0-11.0) Red Blood Count 3.66 x10^6/uL (3.50-5.40) 2.85 x10^6/uL (3.50-5.40) Hemoglobin 10.9 g/dL (12.0-15.5) 8.9 g/dL (12.0-15.5) Hematocrit 32.5 % (36.0-47.0) 25.9 % (36.0-47.0) Mean Corpuscular Volume 89 fL (79-100) 91 fL (79-100) Mean Corpuscular Hemoglobin 30 pg (25-35) 31 pg (25-35) Mean Corpuscular Hemoglobin Concent 34 g/dL (31-37) 35 g/dL (31-37) Red Cell Distribution Width 17.2 % (11.5-14.5) 17.5 % (11.5-14.5) Platelet Count 290 x10^3/uL (140-400) 203 x10^3/uL (140-400) Neutrophils (%) (Auto) 81 % (31-73) 77 % (31-73) Lymphocytes (%) (Auto) 13 % (24-48) 13 % (24-48) Monocytes (%) (Auto) 5 % (0-9) 7 % (0-9) Eosinophils (%) (Auto) 1 % (0-3) 2 % (0-3) Basophils (%) (Auto) 0 % (0-3) 1 % (0-3) Neutrophils # (Auto) 23.1 x10^3/uL (1.8-7.7) 8.3 x10^3/uL (1.8-7.7) Lymphocytes # (Auto) 3.7 x10^3/uL (1.0-4.8) 1.4 x10^3/uL (1.0-4.8) Monocytes # (Auto) 1.3 x10^3/uL (0.0-1.1) 0.7 x10^3/uL (0.0-1.1) Eosinophils # (Auto) 0.3 x10^3/uL (0.0-0.7) 0.2 x10^3/uL (0.0-0.7) Basophils # (Auto) 0.0 x10^3/uL (0.0-0.2) 0.0 x10^3/uL (0.0-0.2) Sodium Level 132 mmol/L (136-145) 131 mmol/L (136-145) Potassium Level 3.8 mmol/L (3.5-5.1) 4.3 mmol/L (3.5-5.1) Chloride Level 97 mmol/L (98-107) 102 mmol/L (98-107) Carbon Dioxide Level 26 mmol/L (21-32) 21 mmol/L (21-32) Anion Gap 9 (6-14) 8 (6-14) Blood Urea Nitrogen 62 mg/dL (7-20) 36 mg/dL (7-20) Creatinine 1.3 mg/dL (0.6-1.0) 0.8 mg/dL (0.6-1.0) Estimated GFR (Cockcroft-Gault) 39.2 68.7 Glucose Level 148 mg/dL (70-99) 129 mg/dL (70-99) Calcium Level 9.0 mg/dL (8.5-10.1) 8.4 mg/dL (8.5-10.1) Total Bilirubin 7.3 mg/dL (0.2-1.0) 6.5 mg/dL (0.2-1.0) Direct Bilirubin 6.4 mg/dL (0.0-0.2) Aspartate Amino Transf (AST/SGOT) 82 U/L (15-37) 50 U/L (15-37) Alanine Aminotransferase (ALT/SGPT) 49 U/L (14-59) 36 U/L (14-59) Alkaline Phosphatase 572 U/L (46-116) 436 U/L (46-116) Total Protein 6.4 g/dL (6.4-8.2) 5.8 g/dL (6.4-8.2) Albumin 2.2 g/dL (3.4-5.0) 1.8 g/dL (3.4-5.0) BUN/Creatinine Ratio 45 (6-20) Albumin/Globulin Ratio 0.5 (1.0-1.7) Laboratory Tests Test 05/22/20 07:00 White Blood Count 10.7 x10^3/uL (4.0-11.0) Red Blood Count 2.85 x10^6/uL (3.50-5.40) Hemoglobin 8.9 g/dL (12.0-15.5) Hematocrit 25.9 % (36.0-47.0) Mean Corpuscular Volume 91 fL (79-100) Mean Corpuscular Hemoglobin 31 pg (25-35) Mean Corpuscular Hemoglobin Concent 35 g/dL (31-37) Red Cell Distribution Width 17.5 % (11.5-14.5) Platelet Count 203 x10^3/uL (140-400) Neutrophils (%) (Auto) 77 % (31-73) Lymphocytes (%) (Auto) 13 % (24-48) Monocytes (%) (Auto) 7 % (0-9) Eosinophils (%) (Auto) 2 % (0-3) Basophils (%) (Auto) 1 % (0-3) Neutrophils # (Auto) 8.3 x10^3/uL (1.8-7.7) Lymphocytes # (Auto) 1.4 x10^3/uL (1.0-4.8) Monocytes # (Auto) 0.7 x10^3/uL (0.0-1.1) Eosinophils # (Auto) 0.2 x10^3/uL (0.0-0.7) Basophils # (Auto) 0.0 x10^3/uL (0.0-0.2) Sodium Level 131 mmol/L (136-145) Potassium Level 4.3 mmol/L (3.5-5.1) Chloride Level 102 mmol/L (98-107) Carbon Dioxide Level 21 mmol/L (21-32) Anion Gap 8 (6-14) Blood Urea Nitrogen 36 mg/dL (7-20) Creatinine 0.8 mg/dL (0.6-1.0) Estimated GFR (Cockcroft-Gault) 68.7 BUN/Creatinine Ratio 45 (6-20) Glucose Level 129 mg/dL (70-99) Calcium Level 8.4 mg/dL (8.5-10.1) Total Bilirubin 6.5 mg/dL (0.2-1.0) Aspartate Amino Transf (AST/SGOT) 50 U/L (15-37) Alanine Aminotransferase (ALT/SGPT) 36 U/L (14-59) Alkaline Phosphatase 436 U/L (46-116) Total Protein 5.8 g/dL (6.4-8.2) Albumin 1.8 g/dL (3.4-5.0) Albumin/Globulin Ratio 0.5 (1.0-1.7) Microbiology 05/20/20 Urine Culture - Final, Complete 05/20/20 Blood Culture - Preliminary, Resulted NO GROWTH AFTER 1 DAY 05/10/20 Gram Stain - Final, Complete 05/10/20 Aerobic and Anaerobic Culture - Final, Complete Medications Current Medications Hydroxyzine HCl (Atarax) 10 mg PRN TID PRN PO ITCHING Last administered on 05/18/20at 15:09; Start 05/07/20 at 17:00; Stop 05/21/20 at 10:54; Status DC Sertraline HCl (Zoloft) 50 mg DAILY PO Last administered on 05/09/20at 08:44; Start 05/08/20 at 09:00; Stop 05/09/20 at 11:19; Status DC Amitriptyline HCl (Elavil) 50 mg QHS PO Last administered on 05/17/20at 21:31; Start 05/07/20 at 21:00; Stop 05/20/20 at 12:08; Status DC Acetaminophen (Tylenol) 325 mg PRN Q6HRS PRN PO MILD PAIN / TEMP > 100.3'F; Start 05/07/20 at 20:00 Iohexol (Omnipaque 300 Mg/ml) 75 ml 1X ONCE IV Last administered on 05/08/20at 13:30; Start 05/08/20 at 11:45; Stop 05/08/20 at 11:46; Status DC Info (CONTRAST GIVEN -- Rx MONITORING) 1 each PRN DAILY PRN MC SEE COMMENTS; Start 05/08/20 at 11:45; Stop 05/10/20 at 11:44; Status DC Tramadol HCl (Ultram) 50 mg TID PO Last administered on 05/09/20at 07:35; Start 05/08/20 at 14:00; Stop 05/09/20 at 11:15; Status DC Potassium Chloride (Klor-Con) 40 meq 1X ONCE PO Last administered on 05/08/20at 14:10; Start 05/08/20 at 12:15; Stop 05/08/20 at 12:16; Status DC Sodium Chloride 1,000 ml @ 60 mls/hr [id number] IV Last administered on 05/09/20at 07:36; Start 05/08/20 at 12:30; Stop 05/09/20 at 11:15; Status DC Amylase/Lipase/ Protease (Zenpep 5,000) 2 cap TIDWMEALS PO Last administered on 05/16/20at 12:28; Start 05/08/20 at 13:00 Phytonadione (Vitamin K Ampule) 2 mg 1X ONCE SQ Last administered on 05/09/20at 11:34; Start 05/09/20 at 11:00; Stop 05/09/20 at 11:01; Status DC Meropenem 1 gm/ Sodium Chloride 100 ml @ 200 mls/hr Q12HR IV Last administered on 05/15/20at 08:42; Start 05/09/20 at 11:30; Stop 05/15/20 at 09:01; Status DC Linezolid/Dextrose 300 ml @ 300 mls/hr Q12HR IV Last administered on 05/15/20at 08:42; Start 05/09/20 at 12:00; Stop 05/15/20 at 09:01; Status DC Acetaminophen/ Hydrocodone Bitart (Lortab 5/325) 1 tab PRN Q4HRS PRN PO MODERATE - SEVERE PAIN Last administered on 05/16/20at 18:37; Start 05/09/20 at 11:15; Stop 05/18/20 at 10:35; Status DC Vancomycin HCl (Vancomycin Oral Solution) 125 mg [id number] PO Last administered on 05/22/20at 08:18; Start 05/09/20 at 14:00 Lactobacillus Rhamnosus (Culturelle) 1 cap BID PO Last administered on 05/22/20at 08:20; Start 05/09/20 at 21:00 Lidocaine HCl (Buffered Lidocaine 1%) 3 ml STK-MED ONCE .ROUTE ; Start 05/10/20 at 08:09; Stop 05/10/20 at 08:09; Status DC Lidocaine HCl (Buffered Lidocaine 1%) 6 ml 1X ONCE INJ Last administered on 05/10/20at 08:15; Start 05/10/20 at 08:15; Stop 05/10/20 at 08:19; Status DC Lidocaine HCl (Buffered Lidocaine 1%) 3 ml 1X ONCE INJ ; Start 05/10/20 at 09:00; Stop 05/10/20 at 09:01; Status DC Potassium Chloride (Klor-Con) 20 meq 1X ONCE PO Last administered on 05/10/20at 10:29; Start 05/10/20 at 10:30; Stop 05/10/20 at 10:31; Status DC Levofloxacin/ Dextrose 100 ml @ 100 mls/hr 1X ONCE IV Last administered on 05/12/20at 14:15; Start 05/12/20 at 09:00; Stop 05/12/20 at 09:59; Status DC Ringer's Solution 1,000 ml @ 30 mls/hr Q24H IV Last administered on 05/12/20at 09:39; Start 05/12/20 at 07:00; Stop 05/12/20 at 18:59; Status DC Prochlorperazine Edisylate (Compazine) 5 mg PACU PRN PRN IV NAUSEA, MRX1; Start 05/12/20 at 07:00; Stop 05/13/20 at 06:59; Status DC Ringer's Solution 1,000 ml @ 75 mls/hr 1X ONCE IV Last administered on 05/12/20at 11:46; Start 05/12/20 at 07:30; Stop 05/12/20 at 20:49; Status DC Iohexol (Omnipaque 300 Mg/ml) 100 ml STK-MED ONCE .ROUTE ; Start 05/12/20 at 09:24; Stop 05/12/20 at 09:24; Status DC Propofol (Diprivan) 200 mg STK-MED ONCE IV ; Start 05/12/20 at 10:12; Stop 05/12/20 at 10:12; Status DC Succinylcholine Chloride (Anectine) 200 mg STK-MED ONCE .ROUTE ; Start 05/10/20 at 09:00; Stop 05/12/20 at 12:52; Status DC Ephedrine Sulfate (ePHEDrine PF IN SALINE SYRINGE) 50 mg STK-MED ONCE IV ; Start 05/10/20 at 09:00; Stop 05/12/20 at 12:52; Status DC Morphine Sulfate (Morphine Sulfate) 1 mg PRN Q4HRS PRN IV PAIN Last administered on 05/18/20at 08:14; Start 05/12/20 at 13:15; Stop 05/18/20 at 10:35; Status DC Ondansetron HCl (Zofran) 4 mg PRN Q6HRS PRN IVP NAUSEA/VOMITING Last administered on 05/19/20at 08:58; Start 05/12/20 at 13:15 Tramadol HCl (Ultram) 50 mg TID PO Last administered on 05/21/20at 08:38; Start 05/12/20 at 14:00; Stop 05/21/20 at 10:54; Status DC Spironolactone (Aldactone) 50 mg BID PO Last administered on 05/15/20at 08:43; Start 05/13/20 at 12:00; Stop 05/15/20 at 12:34; Status DC Hydrocortisone Acetate (Anucort-Hc) 25 mg BID IA Last administered on 05/22/20at 08:20; Start 05/13/20 at 12:00 Lidocaine/ Epinephrine (LIDOCAINE 1%-EPI 1:100,000 Multi-Dose) 20 ml STK-MED ONCE .ROUTE ; Start 05/14/20 at 10:55; Stop 05/14/20 at 10:55; Status DC Iohexol (Omnipaque 240 Mg/ml) 50 ml STK-MED ONCE .ROUTE ; Start 05/14/20 at 10:59; Stop 05/14/20 at 11:00; Status DC Midazolam HCl (Versed) 5 mg STK-MED ONCE .ROUTE ; Start 05/14/20 at 11:18; Stop 05/14/20 at 11:18; Status DC Fentanyl Citrate (Fentanyl 2ml Vial) 100 mcg STK-MED ONCE .ROUTE ; Start 05/14/20 at 11:18; Stop 05/14/20 at 11:18; Status DC Midazolam HCl (Versed) 5 mg 1X ONCE IV Last administered on 05/14/20at 12:41; Start 05/14/20 at 11:45; Stop 05/14/20 at 11:46; Status DC Fentanyl Citrate (Fentanyl 2ml Vial) 100 mcg 1X ONCE IV Last administered on 05/14/20at 12:41; Start 05/14/20 at 11:45; Stop 05/14/20 at 11:46; Status DC Lidocaine/ Epinephrine (LIDOCAINE 1%-EPI 1:100,000 Multi-Dose) 20 ml 1X ONCE INJ Last administered on 05/14/20at 12:40; Start 05/14/20 at 11:45; Stop 05/14/20 at 11:46; Status DC Iohexol (Omnipaque 240 Mg/ml) 50 ml 1X ONCE IJ Last administered on 05/14/20at 12:40; Start 05/14/20 at 11:45; Stop 05/14/20 at 11:46; Status DC Info (CONTRAST GIVEN -- Rx MONITORING) 1 each PRN DAILY PRN MC SEE COMMENTS; Start 05/14/20 at 11:45; Stop 05/16/20 at 11:44; Status DC Fentanyl Citrate (Fentanyl 2ml Vial) 100 mcg STK-MED ONCE .ROUTE ; Start 05/14/20 at 13:15; Stop 05/14/20 at 13:15; Status DC Iohexol (Omnipaque 300 Mg/ml) 100 ml STK-MED ONCE .ROUTE ; Start 05/14/20 at 13:27; Stop 05/14/20 at 13:28; Status DC Albumin Human 100 ml @ 100 mls/hr 1X ONCE IV ; Start 05/16/20 at 11:00; Stop 05/16/20 at 11:59; Status DC Lidocaine HCl (Buffered Lidocaine 1%) 3 ml STK-MED ONCE .ROUTE ; Start 05/17/20 at 13:11; Stop 05/17/20 at 13:12; Status DC Iohexol (Omnipaque 240 Mg/ml) 50 ml STK-MED ONCE .ROUTE ; Start 05/17/20 at 1 3:15; Stop 05/17/20 at 13:16; Status DC Albumin Human 100 ml @ As Directed STK-MED ONCE IV ; Start 05/17/20 at 13:16; Stop 05/17/20 at 13:17; Status DC Cefazolin Sodium (Ancef) 1 gm STK-MED ONCE IVP ; Start 05/17/20 at 13:16; Stop 05/17/20 at 13:17; Status DC Midazolam HCl (Versed) 2 mg STK-MED ONCE .ROUTE ; Start 05/17/20 at 13:16; Stop 05/17/20 at 13:17; Status DC Fentanyl Citrate (Fentanyl 2ml Vial) 100 mcg STK-MED ONCE .ROUTE ; Start 05/17/20 at 13:17; Stop 05/17/20 at 13:17; Status DC Cefazolin Sodium (Ancef) 1 gm STK-MED ONCE IVP ; Start 05/17/20 at 13:17; Stop 05/17/20 at 13:17; Status DC Lidocaine HCl (Buffered Lidocaine 1%) 3 ml 1X ONCE IJ Last administered on 05/17/20at 13:45; Start 05/17/20 at 13:45; Stop 05/17/20 at 13:51; Status DC Midazolam HCl (Versed) 2 mg 1X ONCE IV Last administered on 05/17/20at 13:30; Start 05/17/20 at 13:45; Stop 05/17/20 at 13:51; Status DC Fentanyl Citrate (Fentanyl 2ml Vial) 100 mcg 1X ONCE IV Last administered on 05/17/20at 13:30; Start 05/17/20 at 13:45; Stop 05/17/20 at 13:51; Status DC Cefazolin Sodium (Ancef) 1 gm 1X ONCE IVP Last administered on 05/17/20at 13:55; Start 05/17/20 at 13:45; Stop 05/17/20 at 13:51; Status DC Albumin Human 100 ml @ 100 mls/hr 1X ONCE IV Last administered on 05/17/20at 13:45; Start 05/17/20 at 13:45; Stop 05/17/20 at 14:44; Status DC Iohexol (Omnipaque 240 Mg/ml) 50 ml 1X ONCE IJ Last administered on 05/17/20at 14:07; Start 05/17/20 at 13:45; Stop 05/17/20 at 13:51; Status DC Info (CONTRAST GIVEN -- Rx MONITORING) 1 each PRN DAILY PRN MC SEE COMMENTS; Start 05/17/20 at 14:00; Stop 05/19/20 at 13:59; Status DC Morphine Sulfate (Morphine Sulfate) 2 mg PRN Q4HRS PRN IV PAIN Last administered on 05/22/20at 02:23; Start 05/18/20 at 10:45 Mirtazapine (Remeron) 7.5 mg QHS PO ; Start 05/18/20 at 21:00; Stop 05/20/20 at 12:08; Status DC Sodium Chloride 1,000 ml @ 75 mls/hr [id number] IV Last administered on 05/18/20at 12:02; Start 05/18/20 at 10:45; Stop 05/21/20 at 10:54; Status DC Acetaminophen/ Hydrocodone Bitart (Lortab 10/325) 1 tab PRN Q4HRS PRN PO MODERATE PAIN Last administered on 05/22/20at 10:31; Start 05/18/20 at 10:45 Pantoprazole Sodium (Protonix) 40 mg DAILYAC PO ; Start 05/19/20 at 07:30; Stop 05/20/20 at 11:51; Status DC Amino Acids/ Glycerin/ Electrolytes 1,000 ml @ 50 mls/hr Q20H IV Last administered on 05/22/20at 04:47; Start 05/19/20 at 08:45 Promethazine HCl (Phenergan Supp) 25 mg PRN Q8HRS PRN IA NAUSEA/VOMITING Last administered on 05/19/20at 11:58; Start 05/19/20 at 10:45 Fentanyl (Duragesic 12mcg/ Hr Patch) 1 patch Q3DAYS TD Last administered on 05/22/20at 08:20; Start 05/19/20 at 18:00 Menthol/Methyl Salicylate (Bengay Greaseless Cream) 1 amparo PRN QID PRN TP MUSCLE PAIN Last administered on 05/22/20at 08:21; Start 05/19/20 at 21:15 Pantoprazole Sodium (PROTONIX VIAL for IV PUSH) 40 mg DAILYAC IVP Last administered on 05/22/20at 08:21; Start 05/20/20 at 13:00 Linezolid/Dextrose 300 ml @ 300 mls/hr Q12HR IV Last administered on 05/22/20at 08:28; Start 05/20/20 at 13:00 Meropenem 500 mg/ Sodium Chloride 50 ml @ 100 mls/hr Q8HRS IV Last administered on 05/22/20at 06:35; Start 05/20/20 at 13:00 Active Scripts Active Tramadol Hcl 50 Mg Tablet 50 Mg PO TID Flagyl (Metronidazole) 500 Mg Tablet 500 Mg PO Q8HRS Cephalexin 250 Mg Capsule 500 Mg PO TID Zoloft (Sertraline Hcl) 50 Mg Tablet 50 Mg PO DAILY Reported Amitriptyline Hcl 50 Mg Tablet 50 Mg PO QHS Hydroxyzine Hcl 10 Mg Tablet 10 Mg PO PRN TID PRN Vitals/I & O Vital Sign - Last 24 Hours 05/21/20 05/21/20 05/21/20 05/21/20 15:00 19:00 19:50 23:00 Temp 97.7 99.1 98.4 97.7 99.1 98.4 Pulse 96 57 82 Resp 16 16 16 B/P (MAP) 112/52 (72) 100/48 (65) 101/56 (71) Pulse Ox 96 99 95 O2 Delivery Room Air Room Air Room Air Room Air 05/22/20 05/22/20 05/22/20 05/22/20 02:23 02:53 03:00 05:27 Temp 97.9 97.9 Pulse 81 Resp 18 16 18 B/P (MAP) 107/54 (71) Pulse Ox 97 97 O2 Delivery Room Air Room Air Room Air 05/22/20 05/22/20 05/22/20 05/22/20 06:27 07:00 08:00 08:20 Temp 97.8 97.8 Pulse 78 Resp 18 18 B/P (MAP) 108/63 (78) Pulse Ox 99 O2 Delivery Room Air Room Air Room Air Room Air 05/22/20 05/22/20 10:31 11:00 Temp 98.7 98.7 Pulse 76 Resp 18 B/P (MAP) 118/69 (85) Pulse Ox 99 O2 Delivery Room Air Room Air Intake and Output 05/21/20 05/21/20 05/22/20 15:00 23:00 07:00 Intake Total 1000 ml Output Total 650 ml Balance 350 ml Justifications for Admission Other Justification Nutrition Consultation Dietary Evaluation: Recommendations by RD: Dietary education by RD, Protein supplementation, PPN/TPN Comments: REC: Continue w/ PPN as ordered for nutrition support needs at this time. 34.8 g protein, 294 g dextrose per 1200 ml at 50 ml/ hr.Continue and advance diet per MD. Expected Outcomes/Goals: to meet >75% est nutr needs Malnutrition Findings: Muscle Mass (Severe): Severe Depletion Food and Nutrition Intake (Sev: <50% est energy req 5days Body Fat Depletion (Non Severe: Mod to Severe Weight Status: Underweight Fluid Accumulation (Severe): Severe SRINIVASA ABDULLAHI MD May 22, 2020 11:26
[2020-05-22 15:00] VITALS: BP 108/55
[2020-05-22 19:00] VITALS: BP 112/67
[2020-05-22 23:00] VITALS: BP 102/54
[2020-05-23] MEDS: HYDROcodone/APAP 10/325 1 TAB TABLET PO PRN ×3 (00:50→14:56)
[2020-05-23 03:00] VITALS: BP 107/57
[2020-05-23] MEDS: PANTOPRAZOLE IV PUSH 40 MG VIAL. IVP SCH (05:53)
[2020-05-23] MEDS: MEROPENEM 500 MG in IV NORMAL SALINE 50ML 50 ML IV SCH ×3 (05:53→23:13)
[2020-05-23 07:00] VITALS: BP 105/63
[2020-05-23] MEDS: VANCOMYCIN 125 MG/2.5 ML ORAL SOLUTION. PO SCH ×2 (08:59→21:00)
[2020-05-23] MEDS: LACTOBACILLUS RHAMNOSUS GG 1 CAPSULE. PO SCH ×2 (08:59→21:24)
[2020-05-23] MEDS: HYDROCORTISONE ACETATE 25 MG SUPP.RECT PR SCH ×2 (09:00→21:24)
[2020-05-23] MEDS: AMINO AC 3%/ELECTROLYTE/GLYCER 1,000 ML IV SCH ×2 (09:05→17:11)
--- NOTE | 2020-05-23 09:35 | PDOC ---
Infectious Disease Note Subjective Subjective Patient is tired she says she does not want any more testing she wants to be comfortable ROS ROS No nausea vomiting diarrhea she continues to have abdominal pain Vital Sign Vital Signs Vital Signs Date Time Temp Pulse Resp B/P (MAP) Pulse Ox O2 Delivery O2 Flow Rate FiO2 05/23/20 09:04 Room Air 05/23/20 07:00 97.7 74 16 105/63 (77) 99 97.7 Physical Exam PHYSICAL EXAM GENERAL: The patient is in bed and looks well. alert and smiling. HEENT: Scleral icterus. Oropharynx dry. No lesions seen. NECK: Supple. LUNGS: Clear to auscultation. HEART: S1 and S2. ABDOMEN: Distended, drain in place, bowel sounds present. Tender to deep palpation. No rebound. EXTREMITIES: No gross edema or cyanosis. SKIN: Warm to touch. No signs of rash. NEUROLOGIC: Alert and answering questions appropriately. Labs Micro BLOOD CULTURE Final GRAM POSITIVE DIPLOCOCCI AND GRAM NEGATIVE DESTINEY 1 SET KATELIN ON 05/21, 2 OF 2 POSITIVE CALLED TO MARTIN GARRETT RN IN 4N,BY ALETHA,05/22/20,0310 SPECIMEN SENDING TO [facility] FOR FURTHER WORK UP Objective Assessment 1. Fever - better. 2. Leukocytosis - improved 3. Abdominal pain.s/p Paracentesis 1900 ml out 364 WBC 4. Ascites ? sec to obstruction. 5. Diarrhea. 6. Recent history of Clostridium difficile colitis on 04/14/2020. 7. Hyperbilirubinemia/transaminitis - ? post procedure 8. 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 She did not tolerate adjuvant chemotherapy. 9. Severe protein-calorie malnutrition. 10 blood culture positive gram-positive and gram-negative likely from the biliary source Plan Plan of Care Continue antibiotics Continue supportive care Consider hospice ERIN CANDELARIA MD May 23, 2020 09:35
--- NOTE | 2020-05-23 10:19 | PDOC ---
PROGRESS NOTES Date of Service DATE: 05/23/20 TIME: 10:16 Subjective Subjective some abdominal discomfort at times. she does not want any more tests and wants to go home with hospice . blood culture positive for GPC in chains and GNR. afebrile. Objective Objective Vital Signs Date Time Temp Pulse Resp B/P (MAP) Pulse Ox O2 Delivery O2 Flow Rate FiO2 05/23/20 10:14 Room Air 05/23/20 07:00 97.7 74 16 105/63 (77) 99 97.7 05/21/20 09:38 2.0 Intake and Output 05/23/20 07:00 Intake Total 0 ml Balance 0 ml Intake Oral 0 ml # Voids 2 # Bowel Movements 1 Physical Exam Abdomen: Normal bowel sounds, Soft, Other (mild tenderness worse on righit side by biliary tube. no guarding. has ascites) Heart: Regular rate, Normal S1, Normal S2 Extremities: No edema General: Alert HEENT: Atraumatic Lungs: Clear to auscultation Neuro: Normal speech Psych/Mental Status: Mental status NL Skin: Other (jaundiced) Plan Plan of Care continue iv vancomycin and meropenem and oral vancomycin KUB to see if stomach is still dilated labs tomorrow consult [facility] hospice tomorrow Comment Review of Relevant I have reviewed the following items betty (where applicable) has been applied. Labs Laboratory Tests Test 05/22/20 07:00 White Blood Count 10.7 x10^3/uL (4.0-11.0) Red Blood Count 2.85 x10^6/uL (3.50-5.40) Hemoglobin 8.9 g/dL (12.0-15.5) Hematocrit 25.9 % (36.0-47.0) Mean Corpuscular Volume 91 fL (79-100) Mean Corpuscular Hemoglobin 31 pg (25-35) Mean Corpuscular Hemoglobin Concent 35 g/dL (31-37) Red Cell Distribution Width 17.5 % (11.5-14.5) Platelet Count 203 x10^3/uL (140-400) Neutrophils (%) (Auto) 77 % (31-73) Lymphocytes (%) (Auto) 13 % (24-48) Monocytes (%) (Auto) 7 % (0-9) Eosinophils (%) (Auto) 2 % (0-3) Basophils (%) (Auto) 1 % (0-3) Neutrophils # (Auto) 8.3 x10^3/uL (1.8-7.7) Lymphocytes # (Auto) 1.4 x10^3/uL (1.0-4.8) Monocytes # (Auto) 0.7 x10^3/uL (0.0-1.1) Eosinophils # (Auto) 0.2 x10^3/uL (0.0-0.7) Basophils # (Auto) 0.0 x10^3/uL (0.0-0.2) Sodium Level 131 mmol/L (136-145) Potassium Level 4.3 mmol/L (3.5-5.1) Chloride Level 102 mmol/L (98-107) Carbon Dioxide Level 21 mmol/L (21-32) Anion Gap 8 (6-14) Blood Urea Nitrogen 36 mg/dL (7-20) Creatinine 0.8 mg/dL (0.6-1.0) Estimated GFR (Cockcroft-Gault) 68.7 BUN/Creatinine Ratio 45 (6-20) Glucose Level 129 mg/dL (70-99) Calcium Level 8.4 mg/dL (8.5-10.1) Total Bilirubin 6.5 mg/dL (0.2-1.0) Aspartate Amino Transf (AST/SGOT) 50 U/L (15-37) Alanine Aminotransferase (ALT/SGPT) 36 U/L (14-59) Alkaline Phosphatase 436 U/L (46-116) Total Protein 5.8 g/dL (6.4-8.2) Albumin 1.8 g/dL (3.4-5.0) Albumin/Globulin Ratio 0.5 (1.0-1.7) Microbiology 05/21/20 Blood Culture - Final, Complete 05/20/20 Urine Culture - Final, Complete 05/10/20 Gram Stain - Final, Complete 05/10/20 Aerobic and Anaerobic Culture - Final, Complete Medications Current Medications Hydroxyzine HCl (Atarax) 10 mg PRN TID PRN PO ITCHING Last administered on 04/25 02/10at 15:09; Start 05/07/20 at 17:00; Stop 05/21/20 at 10:54; Status DC Sertraline HCl (Zoloft) 50 mg DAILY PO Last administered on 05/09/20at 08:44; Start 05/08/20 at 09:00; Stop 05/09/20 at 11:19; Status DC Amitriptyline HCl (Elavil) 50 mg QHS PO Last administered on 05/17/20at 21:31; Start 05/07/20 at 21:00; Stop 05/20/20 at 12:08; Status DC Acetaminophen (Tylenol) 325 mg PRN Q6HRS PRN PO MILD PAIN / TEMP > 100.3'F; Start 05/07/20 at 20:00 Iohexol (Omnipaque 300 Mg/ml) 75 ml 1X ONCE IV Last administered on 05/08/20at 13:30; Start 05/08/20 at 11:45; Stop 05/08/20 at 11:46; Status DC Info (CONTRAST GIVEN -- Rx MONITORING) 1 each PRN DAILY PRN MC SEE COMMENTS; Start 05/08/20 at 11:45; Stop 05/10/20 at 11:44; Status DC Tramadol HCl (Ultram) 50 mg TID PO Last administered on 05/09/20at 07:35; Start 05/08/20 at 14:00; Stop 05/09/20 at 11:15; Status DC Potassium Chloride (Klor-Con) 40 meq 1X ONCE PO Last administered on 05/08/20at 14:10; Start 05/08/20 at 12:15; Stop 05/08/20 at 12:16; Status DC Sodium Chloride 1,000 ml @ 60 mls/hr [id number] IV Last administered on 05/09/20at 07:36; Start 05/08/20 at 12:30; Stop 05/09/20 at 11:15; Status DC Amylase/Lipase/ Protease (Zenpep 5,000) 2 cap TIDWMEALS PO Last administered on 05/16/20at 12:28; Start 05/08/20 at 13:00 Phytonadione (Vitamin K Ampule) 2 mg 1X ONCE SQ Last administered on 05/09/20at 11:34; Start 05/09/20 at 11:00; Stop 05/09/20 at 11:01; Status DC Meropenem 1 gm/ Sodium Chloride 100 ml @ 200 mls/hr Q12HR IV Last administered on 05/15/20at 08:42; Start 05/09/20 at 11:30; Stop 05/15/20 at 09:01; Status DC Linezolid/Dextrose 300 ml @ 300 mls/hr Q12HR IV Last administered on 05/15/20at 08:42; Start 05/09/20 at 12:00; Stop 05/15/20 at 09:01; Status DC Acetaminophen/ Hydrocodone Bitart (Lortab 5/325) 1 tab PRN Q4HRS PRN PO MODERATE - SEVERE PAIN Last administered on 05/16/20at 18:37; Start 05/09/20 at 11:15; Stop 05/18/20 at 10:35; Status DC Vancomycin HCl (Vancomycin Oral Solution) 125 mg [id number] PO Last administered on 05/22/20at 08:18; Start 05/09/20 at 14:00; Stop 05/22/20 at 12:13; Status DC Lactobacillus Rhamnosus (Culturelle) 1 cap BID PO Last administered on at 08:59; Start 05/09/20 at 21:00 Lidocaine HCl (Buffered Lidocaine 1%) 3 ml STK-MED ONCE .ROUTE ; Start 05/10/20 at 08:09; Stop 05/10/20 at 08:09; Status DC Lidocaine HCl (Buffered Lidocaine 1%) 6 ml 1X ONCE INJ Last administered on 05/10/20at 08:15; Start 05/10/20 at 08:15; Stop 05/10/20 at 08:19; Status DC Lidocaine HCl (Buffered Lidocaine 1%) 3 ml 1X ONCE INJ ; Start 05/10/20 at 09:00; Stop 05/10/20 at 09:01; Status DC Potassium Chloride (Klor-Con) 20 meq 1X ONCE PO Last administered on 05/10/20at 10:29; Start 05/10/20 at 10:30; Stop 05/10/20 at 10:31; Status DC Levofloxacin/ Dextrose 100 ml @ 100 mls/hr 1X ONCE IV Last administered on 05/12/20at 14:15; Start 05/12/20 at 09:00; Stop 05/12/20 at 09:59; Status DC Ringer's Solution 1,000 ml @ 30 mls/hr Q24H IV Last administered on 05/12/20at 09:39; Start 05/12/20 at 07:00; Stop 05/12/20 at 18:59; Status DC Prochlorperazine Edisylate (Compazine) 5 mg PACU PRN PRN IV NAUSEA, MRX1; Start 05/12/20 at 07:00; Stop 05/13/20 at 06:59; Status DC Ringer's Solution 1,000 ml @ 75 mls/hr 1X ONCE IV Last administered on 05/12/20at 11:46; Start 05/12/20 at 07:30; Stop 05/12/20 at 20:49; Status DC Iohexol (Omnipaque 300 Mg/ml) 100 ml STK-MED ONCE .ROUTE ; Start 05/12/20 at 09:24; Stop 05/12/20 at 09:24; Status DC Propofol (Diprivan) 200 mg STK-MED ONCE IV ; Start 05/12/20 at 10:12; Stop 05/12/20 at 10:12; Status DC Succinylcholine Chloride (Anectine) 200 mg STK-MED ONCE .ROUTE ; Start 05/10/20 at 09:00; Stop 05/12/20 at 12:52; Status DC Ephedrine Sulfate (ePHEDrine PF IN SALINE SYRINGE) 50 mg STK-MED ONCE IV ; Start 05/10/20 at 09:00; Stop 05/12/20 at 12:52; Status DC Morphine Sulfate (Morphine Sulfate) 1 mg PRN Q4HRS PRN IV PAIN Last administered on 05/18/20at 08:14; Start 05/12/20 at 13:15; Stop 05/18/20 at 10:35; Status DC Ondansetron HCl (Zofran) 4 mg PRN Q6HRS PRN IVP NAUSEA/VOMITING Last administered on 05/19/20at 08:58; Start 05/12/20 at 13:15 Tramadol HCl (Ultram) 50 mg TID PO Last administered on 05/21/20at 08:38; Start 05/12/20 at 14:00; Stop 05/21/20 at 10:54; Status DC Spironolactone (Aldactone) 50 mg BID PO Last administered on 05/15/20at 08:43; Start 05/13/20 at 12:00; Stop 05/15/20 at 12:34; Status DC Hydrocortisone Acetate (Anucort-Hc) 25 mg BID KS Last administered on 05/23/20at 09:00; Start 05/13/20 at 12:00 Lidocaine/ Epinephrine (LIDOCAINE 1%-EPI 1:100,000 Multi-Dose) 20 ml STK-MED ONCE .ROUTE ; Start 05/14/20 at 10:55; Stop 05/14/20 at 10:55; Status DC Iohexol (Omnipaque 240 Mg/ml) 50 ml STK-MED ONCE .ROUTE ; Start 05/14/20 at 10:59; Stop 05/14/20 at 11:00; Status DC Midazolam HCl (Versed) 5 mg STK-MED ONCE .ROUTE ; Start 05/14/20 at 11:18; Stop 05/14/20 at 11:18; Status DC Fentanyl Citrate (Fentanyl 2ml Vial) 100 mcg STK-MED ONCE .ROUTE ; Start 05/14/20 at 11:18; Stop 05/14/20 at 11:18; Status DC Midazolam HCl (Versed) 5 mg 1X ONCE IV Last administered on 05/14/20at 12:41; Start 05/14/20 at 11:45; Stop 05/14/20 at 11:46; Status DC Fentanyl Citrate (Fentanyl 2ml Vial) 100 mcg 1X ONCE IV Last administered on 05/14/20at 12:41; Start 05/14/20 at 11:45; Stop 05/14/20 at 11:46; Status DC Lidocaine/ Epinephrine (LIDOCAINE 1%-EPI 1:100,000 Multi-Dose) 20 ml 1X ONCE INJ Last administered on 05/14/20at 12:40; Start 05/14/20 at 11:45; Stop 05/14/20 at 11:46; Status DC Iohexol (Omnipaque 240 Mg/ml) 50 ml 1X ONCE IJ Last administered on 05/14/20at 12:40; Start 05/14/20 at 11:45; Stop 05/14/20 at 11:46; Status DC Info (CONTRAST GIVEN -- Rx MONITORING) 1 each PRN DAILY PRN MC SEE COMMENTS; Start 05/14/20 at 11:45; Stop 05/16/20 at 11:44; Status DC Fentanyl Citrate (Fentanyl 2ml Vial) 100 mcg STK-MED ONCE .ROUTE ; Start 05/14/20 at 13:15; Stop 05/14/20 at 13:15; Status DC Iohexol (Omnipaque 300 Mg/ml) 100 ml STK-MED ONCE .ROUTE ; Start 05/14/20 at 13:27; Stop 05/14/20 at 13:28; Status DC Albumin Human 100 ml @ 100 mls/hr 1X ONCE IV ; Start 05/16/20 at 11:00; Stop 05/16/20 at 11:59; Status DC Lidocaine HCl (Buffered Lidocaine 1%) 3 ml STK-MED ONCE .ROUTE ; Start 05/17/20 at 13:11; Stop 05/17/20 at 13:12; Status DC Iohexol (Omnipaque 240 Mg/ml) 50 ml STK-MED ONCE .ROUTE ; Start 05/17/20 at 13:15; Stop 05/17/20 at 13:16; Status DC Albumin Human 100 ml @ As Directed STK-MED ONCE IV ; Start 05/17/20 at 13:16; Stop 05/17/20 at 13:17; Status DC Cefazolin Sodium (Ancef) 1 gm STK-MED ONCE IVP ; Start 05/17/20 at 13:16; Stop 05/17/20 at 13:17; Status DC Midazolam HCl (Versed) 2 mg STK-MED ONCE .ROUTE ; Start 05/17/20 at 13:16; Stop 05/17/20 at 13:17; Status DC Fentanyl Citrate (Fentanyl 2ml Vial) 100 mcg STK-MED ONCE .ROUTE ; Start 05/17/20 at 13:17; Stop 05/17/20 at 13:17; Status DC Cefazolin Sodium (Ancef) 1 gm STK-MED ONCE IVP ; Start 05/17/20 at 13:17; Stop 05/17/20 at 13:17; Status DC Lidocaine HCl (Buffered Lidocaine 1%) 3 ml 1X ONCE IJ Last administered on 05/17/20at 13:45; Start 05/17/20 at 13:45; Stop 05/17/20 at 13:51; Status DC Midazolam HCl (Versed) 2 mg 1X ONCE IV Last administered on 05/17/20at 13:30; Start 05/17/20 at 13:45; Stop 05/17/20 at 13:51; Status DC Fentanyl Citrate (Fentanyl 2ml Vial) 100 mcg 1X ONCE IV Last administered on 05/17/20at 13:30; Start 05/17/20 at 13:45; Stop 05/17/20 at 13:51; Status DC Cefazolin Sodium (Ancef) 1 gm 1X ONCE IVP Last administered on 05/17/20at 13:55; Start 05/17/20 at 13:45; Stop 05/17/20 at 13:51; Status DC Albumin Human 100 ml @ 100 mls/hr 1X ONCE IV Last administered on 05/17/20at 13:45; Start 05/17/20 at 13:45; Stop 05/17/20 at 14:44; Status DC Iohexol (Omnipaque 240 Mg/ml) 50 ml 1X ONCE IJ Last administered on 05/17/20at 14:07; Start 05/17/20 at 13:45; Stop 05/17/20 at 13:51; Status DC Info (CONTRAST GIVEN -- Rx MONITORING) 1 each PRN DAILY PRN MC SEE COMMENTS; Start 05/17/20 at 14:00; Stop 05/19/20 at 13:59; Status DC Morphine Sulfate (Morphine Sulfate) 2 mg PRN Q4HRS PRN IV PAIN Last administered on 05/22/20at 13:44; Start 05/18/20 at 10:45 Mirtazapine (Remeron) 7.5 mg QHS PO ; Start 05/18/20 at 21:00; Stop 05/20/20 at 12:08; Status DC Sodium Chloride 1,000 ml @ 75 mls/hr [id number] IV Last administered on 05/18/20at 12:02; Start 05/18/20 at 10:45; Stop 05/21/20 at 10:54; Status DC Acetaminophen/ Hydrocodone Bitart (Lortab 10/325) 1 tab PRN Q4HRS PRN PO MODERATE PAIN Last administered on 05/23/20at 09:04; Start 05/18/20 at 10:45 Pantoprazole Sodium (Protonix) 40 mg DAILYAC PO ; Start 05/19/20 at 07:30; Stop 05/20/20 at 11:51; Status DC Amino Acids/ Glycerin/ Electrolytes 1,000 ml @ 75 mls/hr [id number] IV Last administered on 05/23/20 09:05; Start 05/19/20 at 08:45 Promethazine HCl (Phenergan Supp) 25 mg PRN Q8HRS PRN [place] NAUSEA/VOMITING Last administered on 05/19/20 11:58; Start 05/19/20 at 10:45 Fentanyl (Duragesic 12mcg/ Hr Patch) 1 patch Q3DAYS TD Last administered on 05/22/20 08:20; Start 05/19/20 at 18:00 Menthol/Methyl Salicylate (Bengay Greaseless Cream) 1 amparo PRN QID PRN TP MUSCLE PAIN Last administered on 05/22/20 08:21; Start 05/19/20 at 21:15 Pantoprazole Sodium (PROTONIX VIAL for IV PUSH) 40 mg DAILYAC IVP Last administered on 05/23/20 05:53; Start 05/20/20 at 13:00 Linezolid/Dextrose 300 ml @ 300 mls/hr Q12HR IV Last administered on 05/23/20 09:00; Start 05/20/20 at 13:00 Meropenem 500 mg/ Sodium Chloride 50 ml @ 100 mls/hr Q8HRS IV Last administered on 05/23/20 05:53; Start 05/20/20 at 13:00 Vancomycin HCl (Vancomycin Oral Solution) 125 mg BID PO Last administered on 05/23/20 08:59; Start 05/22/20 at 21:00 Active Scripts Active Tramadol Hcl 50 Mg Tablet 50 Mg PO TID Flagyl (Metronidazole) 500 Mg Tablet 500 Mg PO Q8HRS Cephalexin 250 Mg Capsule 500 Mg PO TID Zoloft (Sertraline Hcl) 50 Mg Tablet 50 Mg PO DAILY Reported Amitriptyline Hcl 50 Mg Tablet 50 Mg PO QHS Hydroxyzine Hcl 10 Mg Tablet 10 Mg PO PRN TID PRN Vitals/I & O Vital Sign - Last 24 Hours 05/22/20 05/22/20 05/22/20 05/22/20 10:31 11:00 11:30 12:20 Temp 98.7 98.7 Pulse 76 Resp 18 B/P (MAP) 118/69 (85) Pulse Ox 99 99 O2 Delivery Room Air Room Air Room Air Room Air 05/22/20 05/22/20 05/22/20 05/22/20 13:44 14:14 15:00 19:00 Temp 98.5 98.0 98.5 98.0 Pulse 76 80 Resp 18 18 B/P (MAP) 108/55 (72) 112/67 (82) Pulse Ox 96 99 O2 Delivery Room Air Room Air Room Air Room Air 05/22/20 05/22/20 05/22/20 05/22/20 19:30 20:07 21:07 23:00 Temp 98.0 98.0 Pulse 86 Resp 19 B/P (MAP) 102/54 (70) Pulse Ox 96 O2 Delivery Room Air Room Air Room Air Room Air 05/23/20 05/23/20 05/23/20 05/23/20 00:50 01:57 03:00 07:00 Temp 98.1 97.7 98.1 97.7 Pulse 82 74 Resp 19 16 B/P (MAP) 107/57 (74) 105/63 (77) Pulse Ox 97 99 O2 Delivery Room Air Room Air Room Air Room Air 05/23/20 05/23/20 09:04 10:14 O2 Delivery Room Air Room Air Intake and Output 05/22/20 05/22/20 05/23/20 15:00 23:00 07:00 Intake Total 0 ml 0 ml Balance 0 ml 0 ml Justifications for Admission Other Justification Nutrition Consultation Dietary Evaluation: Recommendations by RD: Dietary education by RD, Protein supplementation, PPN/TPN Comments: REC: Continue w/ PPN as ordered for nutrition support needs at this time. 34.8 g protein, 294 g dextrose per 1200 ml at 50 ml/ hr.Continue and advance diet per MD. Expected Outcomes/Goals: to meet >75% est nutr needs Malnutrition Findings: Muscle Mass (Severe): Severe Depletion Food and Nutrition Intake (Sev: <50% est energy req 5days Body Fat Depletion (Non Severe: Mod to Severe Weight Status: Underweight Fluid Accumulation (Severe): Severe SRINIVASA ABDULLAHI MD May 23, 2020 10:19
[2020-05-23 11:00] VITALS: BP 95/56
--- NOTE | 2020-05-23 13:06 | PDOC ---
G I PROGRESS NOTE Subjective Fairly comfortable. Gets pain meds when needed. Still NPO. Physical Exam Jaundiced. Lungs clear. RRR Abdomen soft. Review of Relevant I have reviewed the following items betty (where applicable) has been applied. Labs Laboratory Tests Test 05/22/20 07:00 White Blood Count 10.7 x10^3/uL (4.0-11.0) Red Blood Count 2.85 x10^6/uL (3.50-5.40) Hemoglobin 8.9 g/dL (12.0-15.5) Hematocrit 25.9 % (36.0-47.0) Mean Corpuscular Volume 91 fL (79-100) Mean Corpuscular Hemoglobin 31 pg (25-35) Mean Corpuscular Hemoglobin Concent 35 g/dL (31-37) Red Cell Distribution Width 17.5 % (11.5-14.5) Platelet Count 203 x10^3/uL (140-400) Neutrophils (%) (Auto) 77 % (31-73) Lymphocytes (%) (Auto) 13 % (24-48) Monocytes (%) (Auto) 7 % (0-9) Eosinophils (%) (Auto) 2 % (0-3) Basophils (%) (Auto) 1 % (0-3) Neutrophils # (Auto) 8.3 x10^3/uL (1.8-7.7) Lymphocytes # (Auto) 1.4 x10^3/uL (1.0-4.8) Monocytes # (Auto) 0.7 x10^3/uL (0.0-1.1) Eosinophils # (Auto) 0.2 x10^3/uL (0.0-0.7) Basophils # (Auto) 0.0 x10^3/uL (0.0-0.2) Sodium Level 131 mmol/L (136-145) Potassium Level 4.3 mmol/L (3.5-5.1) Chloride Level 102 mmol/L (98-107) Carbon Dioxide Level 21 mmol/L (21-32) Anion Gap 8 (6-14) Blood Urea Nitrogen 36 mg/dL (7-20) Creatinine 0.8 mg/dL (0.6-1.0) Estimated GFR (Cockcroft-Gault) 68.7 BUN/Creatinine Ratio 45 (6-20) Glucose Level 129 mg/dL (70-99) Calcium Level 8.4 mg/dL (8.5-10.1) Total Bilirubin 6.5 mg/dL (0.2-1.0) Aspartate Amino Transf (AST/SGOT) 50 U/L (15-37) Alanine Aminotransferase (ALT/SGPT) 36 U/L (14-59) Alkaline Phosphatase 436 U/L (46-116) Total Protein 5.8 g/dL (6.4-8.2) Albumin 1.8 g/dL (3.4-5.0) Albumin/Globulin Ratio 0.5 (1.0-1.7) Microbiology 05/21/20 Blood Culture - Final, Complete 05/20/20 Urine Culture - Final, Complete 05/10/20 Gram Stain - Final, Complete 05/10/20 Aerobic and Anaerobic Culture - Final, Complete Note bacteremia, from stent/drain? Medications Current Medications Hydroxyzine HCl (Atarax) 10 mg PRN TID PRN PO ITCHING Last administered on 04/25 02/10at 15:09; Start 05/07/20 at 17:00; Stop 05/21/20 at 10:54; Status DC Sertraline HCl (Zoloft) 50 mg DAILY PO Last administered on 05/09/20at 08:44; Start 05/08/20 at 09:00; Stop 05/09/20 at 11:19; Status DC Amitriptyline HCl (Elavil) 50 mg QHS PO Last administered on 05/17/20at 21:31; Start 05/07/20 at 21:00; Stop 05/20/20 at 12:08; Status DC Acetaminophen (Tylenol) 325 mg PRN Q6HRS PRN PO MILD PAIN / TEMP > 100.3'F; Start 05/07/20 at 20:00 Iohexol (Omnipaque 300 Mg/ml) 75 ml 1X ONCE IV Last administered on 05/08/20at 13:30; Start 05/08/20 at 11:45; Stop 05/08/20 at 11:46; Status DC Info (CONTRAST GIVEN -- Rx MONITORING) 1 each PRN DAILY PRN MC SEE COMMENTS; Start 05/08/20 at 11:45; Stop 05/10/20 at 11:44; Status DC Tramadol HCl (Ultram) 50 mg TID PO Last administered on 05/09/20at 07:35; Start 05/08/20 at 14:00; Stop 05/09/20 at 11:15; Status DC Potassium Chloride (Klor-Con) 40 meq 1X ONCE PO Last administered on 05/08/20at 14:10; Start 05/08/20 at 12:15; Stop 05/08/20 at 12:16; Status DC Sodium Chloride 1,000 ml @ 60 mls/hr [id number] IV Last administered on 05/09/20at 07:36; Start 05/08/20 at 12:30; Stop 05/09/20 at 11:15; Status DC Amylase/Lipase/ Protease (Zenpep 5,000) 2 cap TIDWMEALS PO Last administered on 05/16/20at 12:28; Start 05/08/20 at 13:00 Phytonadione (Vitamin K Ampule) 2 mg 1X ONCE SQ Last administered on 05/09/20at 11:34; Start 05/09/20 at 11:00; Stop 05/09/20 at 11:01; Status DC Meropenem 1 gm/ Sodium Chloride 100 ml @ 200 mls/hr Q12HR IV Last administered on 05/15/20at 08:42; Start 05/09/20 at 11:30; Stop 05/15/20 at 09:01; Status DC Linezolid/Dextrose 300 ml @ 300 mls/hr Q12HR IV Last administered on 05/15/20at 08:42; Start 05/09/20 at 12:00; Stop 05/15/20 at 09:01; Status DC Acetaminophen/ Hydrocodone Bitart (Lortab 5/325) 1 tab PRN Q4HRS PRN PO MODERATE - SEVERE PAIN Last administered on 05/16/20at 18:37; Start 05/09/20 at 11:15; Stop 05/18/20 at 10:35; Status DC Vancomycin HCl (Vancomycin Oral Solution) 125 mg [id number] PO Last administered on 05/22/20at 08:18; Start 05/09/20 at 14:00; Stop 05/22/20 at 12:13; Status DC Lactobacillus Rhamnosus (Culturelle) 1 cap BID PO Last administered on at 08:59; Start 05/09/20 at 21:00 Lidocaine HCl (Buffered Lidocaine 1%) 3 ml STK-MED ONCE .ROUTE ; Start 05/10/20 at 08:09; Stop 05/10/20 at 08:09; Status DC Lidocaine HCl (Buffered Lidocaine 1%) 6 ml 1X ONCE INJ Last administered on 05/10/20at 08:15; Start 05/10/20 at 08:15; Stop 05/10/20 at 08:19; Status DC Lidocaine HCl (Buffered Lidocaine 1%) 3 ml 1X ONCE INJ ; Start 05/10/20 at 09:00; Stop 05/10/20 at 09:01; Status DC Potassium Chloride (Klor-Con) 20 meq 1X ONCE PO Last administered on 05/10/20at 10:29; Start 05/10/20 at 10:30; Stop 05/10/20 at 10:31; Status DC Levofloxacin/ Dextrose 100 ml @ 100 mls/hr 1X ONCE IV Last administered on 05/12/20at 14:15; Start 05/12/20 at 09:00; Stop 05/12/20 at 09:59; Status DC Ringer's Solution 1,000 ml @ 30 mls/hr Q24H IV Last administered on 05/12/20at 09:39; Start 05/12/20 at 07:00; Stop 05/12/20 at 18:59; Status DC Prochlorperazine Edisylate (Compazine) 5 mg PACU PRN PRN IV NAUSEA, MRX1; Start 05/12/20 at 07:00; Stop 05/13/20 at 06:59; Status DC Ringer's Solution 1,000 ml @ 75 mls/hr 1X ONCE IV Last administered on 05/12/20at 11:46; Start 05/12/20 at 07:30; Stop 05/12/20 at 20:49; Status DC Iohexol (Omnipaque 300 Mg/ml) 100 ml STK-MED ONCE .ROUTE ; Start 05/12/20 at 09:24; Stop 05/12/20 at 09:24; Status DC Propofol (Diprivan) 200 mg STK-MED ONCE IV ; Start 05/12/20 at 10:12; Stop 05/12/20 at 10:12; Status DC Succinylcholine Chloride (Anectine) 200 mg STK-MED ONCE .ROUTE ; Start 05/10/20 at 09:00; Stop 05/12/20 at 12:52; Status DC Ephedrine Sulfate (ePHEDrine PF IN SALINE SYRINGE) 50 mg STK-MED ONCE IV ; Start 05/10/20 at 09:00; Stop 05/12/20 at 12:52; Status DC Morphine Sulfate (Morphine Sulfate) 1 mg PRN Q4HRS PRN IV PAIN Last administered on 05/18/20at 08:14; Start 05/12/20 at 13:15; Stop 05/18/20 at 10:35; Status DC Ondansetron HCl (Zofran) 4 mg PRN Q6HRS PRN IVP NAUSEA/VOMITING Last administered on 05/19/20at 08:58; Start 05/12/20 at 13:15 Tramadol HCl (Ultram) 50 mg TID PO Last administered on 05/21/20at 08:38; Start 05/12/20 at 14:00; Stop 05/21/20 at 10:54; Status DC Spironolactone (Aldactone) 50 mg BID PO Last administered on 05/15/20at 08:43; Start 05/13/20 at 12:00; Stop 05/15/20 at 12:34; Status DC Hydrocortisone Acetate (Anucort-Hc) 25 mg BID ME Last administered on 05/23/20at 09:00; Start 05/13/20 at 12:00 Lidocaine/ Epinephrine (LIDOCAINE 1%-EPI 1:100,000 Multi-Dose) 20 ml STK-MED ONCE .ROUTE ; Start 05/14/20 at 10:55; Stop 05/14/20 at 10:55; Status DC Iohexol (Omnipaque 240 Mg/ml) 50 ml STK-MED ONCE .ROUTE ; Start 05/14/20 at 10:59; Stop 05/14/20 at 11:00; Status DC Midazolam HCl (Versed) 5 mg STK-MED ONCE .ROUTE ; Start 05/14/20 at 11:18; Stop 05/14/20 at 11:18; Status DC Fentanyl Citrate (Fentanyl 2ml Vial) 100 mcg STK-MED ONCE .ROUTE ; Start 05/14/20 at 11:18; Stop 05/14/20 at 11:18; Status DC Midazolam HCl (Versed) 5 mg 1X ONCE IV Last administered on 05/14/20at 12:41; Start 05/14/20 at 11:45; Stop 05/14/20 at 11:46; Status DC Fentanyl Citrate (Fentanyl 2ml Vial) 100 mcg 1X ONCE IV Last administered on 05/14/20at 12:41; Start 05/14/20 at 11:45; Stop 05/14/20 at 11:46; Status DC Lidocaine/ Epinephrine (LIDOCAINE 1%-EPI 1:100,000 Multi-Dose) 20 ml 1X ONCE INJ Last administered on 05/14/20at 12:40; Start 05/14/20 at 11:45; Stop 05/14/20 at 11:46; Status DC Iohexol (Omnipaque 240 Mg/ml) 50 ml 1X ONCE IJ Last administered on 05/14/20at 12:40; Start 05/14/20 at 11:45; Stop 05/14/20 at 11:46; Status DC Info (CONTRAST GIVEN -- Rx MONITORING) 1 each PRN DAILY PRN MC SEE COMMENTS; Start 05/14/20 at 11:45; Stop 05/16/20 at 11:44; Status DC Fentanyl Citrate (Fentanyl 2ml Vial) 100 mcg STK-MED ONCE .ROUTE ; Start 05/14/20 at 13:15; Stop 05/14/20 at 13:15; Status DC Iohexol (Omnipaque 300 Mg/ml) 100 ml STK-MED ONCE .ROUTE ; Start 05/14/20 at 13:27; Stop 05/14/20 at 13:28; Status DC Albumin Human 100 ml @ 100 mls/hr 1X ONCE IV ; Start 05/16/20 at 11:00; Stop 05/16/20 at 11:59; Status DC Lidocaine HCl (Buffered Lidocaine 1%) 3 ml STK-MED ONCE .ROUTE ; Start 05/17/20 at 13:11; Stop 05/17/20 at 13:12; Status DC Iohexol (Omnipaque 240 Mg/ml) 50 ml STK-MED ONCE .ROUTE ; Start 05/17/20 at 13:15; Stop 05/17/20 at 13:16; Status DC Albumin Human 100 ml @ As Directed STK-MED ONCE IV ; Start 05/17/20 at 13:16; Stop 05/17/20 at 13:17; Status DC Cefazolin Sodium (Ancef) 1 gm STK-MED ONCE IVP ; Start 05/17/20 at 13:16; Stop 05/17/20 at 13:17; Status DC Midazolam HCl (Versed) 2 mg STK-MED ONCE .ROUTE ; Start 05/17/20 at 13:16; Stop 05/17/20 at 13:17; Status DC Fentanyl Citrate (Fentanyl 2ml Vial) 100 mcg STK-MED ONCE .ROUTE ; Start 05/17/20 at 13:17; Stop 05/17/20 at 13:17; Status DC Cefazolin Sodium (Ancef) 1 gm STK-MED ONCE IVP ; Start 05/17/20 at 13:17; Stop 05/17/20 at 13:17; Status DC Lidocaine HCl (Buffered Lidocaine 1%) 3 ml 1X ONCE IJ Last administered on 05/17/20at 13:45; Start 05/17/20 at 13:45; Stop 05/17/20 at 13:51; Status DC Midazolam HCl (Versed) 2 mg 1X ONCE IV Last administered on 05/17/20at 13:30; Start 05/17/20 at 13:45; Stop 05/17/20 at 13:51; Status DC Fentanyl Citrate (Fentanyl 2ml Vial) 100 mcg 1X ONCE IV Last administered on 05/17/20at 13:30; Start 05/17/20 at 13:45; Stop 05/17/20 at 13:51; Status DC Cefazolin Sodium (Ancef) 1 gm 1X ONCE IVP Last administered on 05/17/20at 13:55; Start 05/17/20 at 13:45; Stop 05/17/20 at 13:51; Status DC Albumin Human 100 ml @ 100 mls/hr 1X ONCE IV Last administered on 05/17/20at 13:45; Start 05/17/20 at 13:45; Stop 05/17/20 at 14:44; Status DC Iohexol (Omnipaque 240 Mg/ml) 50 ml 1X ONCE IJ Last administered on 05/17/20at 14:07; Start 05/17/20 at 13:45; Stop 05/17/20 at 13:51; Status DC Info (CONTRAST GIVEN -- Rx MONITORING) 1 each PRN DAILY PRN MC SEE COMMENTS; Start 05/17/20 at 14:00; Stop 05/19/20 at 13:59; Status DC Morphine Sulfate (Morphine Sulfate) 2 mg PRN Q4HRS PRN IV PAIN Last administered on 05/22/20at 13:44; Start 05/18/20 at 10:45 Mirtazapine (Remeron) 7.5 mg QHS PO ; Start 05/18/20 at 21:00; Stop 05/20/20 at 12:08; Status DC Sodium Chloride 1,000 ml @ 75 mls/hr [id number] IV Last administered on 05/18/20at 12:02; Start 05/18/20 at 10:45; Stop 05/21/20 at 10:54; Status DC Acetaminophen/ Hydrocodone Bitart (Lortab 10/325) 1 tab PRN Q4HRS PRN PO MODERATE PAIN Last administered on 05/23/20at 09:04; Start 05/18/20 at 10:45 Pantoprazole Sodium (Protonix) 40 mg DAILYAC PO ; Start 05/19/20 at 07:30; Stop 05/20/20 at 11:51; Status DC Amino Acids/ Glycerin/ Electrolytes 1,000 ml @ 75 mls/hr [id number] IV Last administered on 05/23/20at 09:05; Start 05/19/20 at 08:45 Promethazine HCl (Phenergan Supp) 25 mg PRN Q8HRS PRN ME NAUSEA/VOMITING Last administered on 05/19/20at 11:58; Start 05/19/20 at 10:45 Fentanyl (Duragesic 12mcg/ Hr Patch) 1 patch Q3DAYS TD Last administered on 05/22/20at 08:20; Start 05/19/20 at 18:00 Menthol/Methyl Salicylate (Bengay Greaseless Cream) 1 amparo PRN QID PRN TP MUSCLE PAIN Last administered on 05/22/20 08:21; Start 05/19/20 at 21:15 Pantoprazole Sodium (PROTONIX VIAL for IV PUSH) 40 mg DAILYAC IVP Last administered on 05/23/20at 05:53; Start 05/20/20 at 13:00 Linezolid/Dextrose 300 ml @ 300 mls/hr Q12HR IV Last administered on 05/23/20at 09:00; Start 05/20/20 at 13:00 Meropenem 500 mg/ Sodium Chloride 50 ml @ 100 mls/hr Q8HRS IV Last administered on 05/23/20at 05:53; Start 05/20/20 at 13:00 Vancomycin HCl (Vancomycin Oral Solution) 125 mg BID PO Last administered on 05/23/20at 08:59; Start 05/22/20 at 21:00 Active Scripts Active Tramadol Hcl 50 Mg Tablet 50 Mg PO TID Flagyl (Metronidazole) 500 Mg Tablet 500 Mg PO Q8HRS Cephalexin 250 Mg Capsule 500 Mg PO TID Zoloft (Sertraline Hcl) 50 Mg Tablet 50 Mg PO DAILY Reported Amitriptyline Hcl 50 Mg Tablet 50 Mg PO QHS Hydroxyzine Hcl 10 Mg Tablet 10 Mg PO PRN TID PRN Vitals/I & O Vital Sign - Last 24 Hours 05/22/20 05/22/20 05/22/20 05/22/20 13:44 14:14 15:00 19:00 Temp 98.5 98.0 98.5 98.0 Pulse 76 80 Resp 18 18 B/P (MAP) 108/55 (72) 112/67 (82) Pulse Ox 96 99 O2 Delivery Room Air Room Air Room Air Room Air 05/22/20 05/22/20 05/22/20 05/22/20 19:30 20:07 21:07 23:00 Temp 98.0 98.0 Pulse 86 Resp 19 B/P (MAP) 102/54 (70) Pulse Ox 96 O2 Delivery Room Air Room Air Room Air Room Air 05/23/20 05/23/20 05/23/20 05/23/20 00:50 01:57 03:00 07:00 Temp 98.1 97.7 98.1 97.7 Pulse 82 74 Resp 19 16 B/P (MAP) 107/57 (74) 105/63 (77) Pulse Ox 97 99 O2 Delivery Room Air Room Air Room Air Room Air 05/23/20 05/23/20 05/23/20 05/23/20 08:00 09:04 10:14 11:00 Temp 97.7 97.7 Pulse 83 Resp 16 B/P (MAP) 95/56 (69) Pulse Ox 98 O2 Delivery Room Air Room Air Room Air Room Air Intake and Output0 05/22/20 05/22/20 05/23/20 15:00 23:00 07:00 Intake Total 0 ml 0 ml Balance 0 ml 0 ml Assessment 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 Last cytology suggestive of this. GOO. May be from the biliary drain; pretty crowded space in there. Note consideration for hospice; have no problem with this if course decided upon. Plan of Care Note Continue analgesics, etc. Justicifation of Admission Dx: Justifications for Admission: Justification of Admission Dx: Yes SRINIVASA OTERO MD May 23, 2020 13:06
[2020-05-23 15:00] VITALS: BP 112/62
--- NOTE | 2020-05-23 15:38 | RAD ---
Examination: Frontal view of the abdomen HISTORY: History of gastric dilatation COMPARISON: 05/20/2020 Findings/ impression: Right upper quadrant biliary drain is unchanged. A drainage catheter now projects in the left lower quadrant of the abdomen (prior right mid abdomen) Mild air distended bowel loops identified in the abdomen. Electronically signed by: Ruel Morales MD (05/23/2020 3:35 PM) [id number]
[2020-05-23] MEDS: MORPHINE SULFATE 2 MG/ML VIAL. IV PRN ×2 (17:10→21:34)
[2020-05-23 19:00] VITALS: BP 113/68
[2020-05-23 23:00] VITALS: BP 109/64
[2020-05-24] MEDS: MORPHINE SULFATE 2 MG/ML VIAL. IV PRN ×4 (02:17→20:27)
[2020-05-24 03:00] VITALS: BP 102/62
[2020-05-24] MEDS: MEROPENEM 500 MG in IV NORMAL SALINE 50ML 50 ML IV SCH ×3 (06:20→22:40)
[2020-05-24] MEDS: AMINO AC 3%/ELECTROLYTE/GLYCER 1,000 ML IV SCH ×2 (06:51→20:29)
[2020-05-24 07:00] VITALS: BP 99/59
[2020-05-24 08:11] LABS: BASO % 0 % (0-3); EOS % 1 % (0-3); HEMATOCRIT 26.2 % (36.0-47.0); HEMOGLOBIN 8.8 g/dL (12.0-15.5); LYMPH # 0.5 x10^3/uL (1.0-4.8); LYMPH % 8 % (24-48); MEAN CORPUSCULAR HEMOGLOBIN 31 pg (25-35); MEAN CORPUSCULAR HGB CONC 34 g/dL (31-37); MEAN CORPUSCULAR VOLUME 93 fL (79-100); MONO # 0.4 x10^3/uL (0.0-1.1); MONO % 7 % (0-9); NEUT # 5.2 x10^3/uL (1.8-7.7); NEUT % 84 % (31-73); PLATELET COUNT 233 x10^3/uL (140-400); RED BLOOD COUNT 2.82 x10^6/uL (3.50-5.40); RED CELL DISTRIBUTION WIDTH 18.7 % (11.5-14.5); WHITE BLOOD COUNT 6.1 x10^3/uL (4.0-11.0)
[2020-05-24] MEDS: PANTOPRAZOLE IV PUSH 40 MG VIAL. IVP SCH (08:25)
[2020-05-24] MEDS: LACTOBACILLUS RHAMNOSUS GG 1 CAPSULE. PO SCH ×2 (08:26→21:32)
[2020-05-24] MEDS: VANCOMYCIN 125 MG/2.5 ML ORAL SOLUTION. PO SCH ×2 (08:34→21:00)
[2020-05-24] MEDS: HYDROCORTISONE ACETATE 25 MG SUPP.RECT PR SCH ×2 (08:34→21:34)
[2020-05-24 08:39] LABS: ALBUMIN 1.6 g/dL (3.4-5.0); ALBUMIN/GLOBULIN RATIO 0.4 (1.0-1.7); CALCIUM 7.9 mg/dL (8.5-10.1); CREATININE 0.8 mg/dL (0.6-1.0); GFR 68.7; POTASSIUM 4.4 mmol/L (3.5-5.1); TOTAL BILIRUBIN 4.6 mg/dL (0.2-1.0); TOTAL PROTEIN 5.8 g/dL (6.4-8.2)
--- NOTE | 2020-05-24 08:54 | PDOC ---
Infectious Disease Note Subjective: Subjective Patient is tired she says she does not want any more testing she wants to be comfortable Denies any pain Vital Signs: Vital Signs Vital Signs Date Time Temp Pulse Resp B/P (MAP) Pulse Ox O2 Delivery O2 Flow Rate FiO2 05/24/20 08:26 Room Air 05/24/20 07:00 97.8 75 16 99/59 (72) 97 97.8 Physical Exam: PHYSICAL EXAM GENERAL: The patient is in bed and looks well. alert and smiling. HEENT: Scleral icterus. Oropharynx dry. No lesions seen. NECK: Supple. LUNGS: Clear to auscultation. HEART: S1 and S2. ABDOMEN: Distended, drain in place, bowel sounds present. Tender to deep palpation. No rebound. EXTREMITIES: No gross edema or cyanosis. SKIN: Warm to touch. No signs of rash. NEUROLOGIC: Alert and answering questions appropriately. Medications: Inpatient Meds: Current Medications Medications (Trade) Dose Ordered Sig/Meka Start Time Stop Time Status Last Admin Dose Admin Acetaminophen (Tylenol) 325 mg PRN Q6HRS PRN 05/07/20 20:00 Acetaminophen/ Hydrocodone Bitart (Lortab 10/325) 1 tab PRN Q4HRS PRN 05/18/20 10:45 05/23/20 14:56 1 TAB Acetaminophen/ Hydrocodone Bitart (Lortab 5/325) 1 tab PRN Q4HRS PRN 05/09/20 11:15 05/18/20 10:35 DC 05/16/20 18:37 1 TAB Albumin Human 100 ml @ 100 mls/hr 1X ONCE 05/17/20 13:45 05/17/20 14:44 DC 05/17/20 13:45 100 MLS/HR Amino Acids/ Glycerin/ Electrolytes 1,000 ml @ 75 mls/hr [id number] 05/19/20 08:45 05/24/20 06:51 75 MLS/HR Amitriptyline HCl (Elavil) 50 mg QHS 05/07/20 21:00 05/20/20 12:08 DC 05/17/20 21:31 50 MG Amylase/Lipase/ Protease (Zenpep 5,000) 2 cap TIDWMEALS 05/08/20 13:00 05/16/20 12:28 2 CAP Cefazolin Sodium (Ancef) 1 gm 1X ONCE 05/17/20 13:45 05/17/20 13:51 DC 05/17/20 13:55 1 GM Ephedrine Sulfate (ePHEDrine PF IN SALINE SYRINGE) 50 mg STK-MED ONCE 05/10/20 09:00 05/12/20 12:52 DC Fentanyl (Duragesic 12mcg/ Hr Patch) 1 patch Q3DAYS 05/19/20 18:00 05/22/20 08:20 1 PATCH Fentanyl Citrate (Fentanyl 2ml Vial) 100 mcg 1X ONCE 05/17/20 13:45 05/17/20 13:51 DC 05/17/20 13:30 75 MCG Hydrocortisone Acetate (Anucort-Hc) 25 mg BID 05/13/20 12:00 05/24/20 08:34 25 MG Hydroxyzine HCl (Atarax) 10 mg PRN TID PRN 05/07/20 17:00 05/21/20 10:54 DC 05/18/20 15:09 10 MG Info (CONTRAST GIVEN -- Rx MONITORING) 1 each PRN DAILY PRN 05/17/20 14:00 05/19/20 13:59 DC Iohexol (Omnipaque 240 Mg/ml) 50 ml 1X ONCE 05/17/20 13:45 05/17/20 13:51 DC 05/17/20 14:07 15 ML Iohexol (Omnipaque 300 Mg/ml) 100 ml STK-MED ONCE 05/14/20 13:27 05/14/20 13:28 DC Lactobacillus Rhamnosus (Culturelle) 1 cap BID 05/09/20 21:00 05/24/20 08:26 1 CAP Levofloxacin/ Dextrose 100 ml @ 100 mls/hr 1X ONCE 05/12/20 09:00 05/12/20 09:59 DC 05/12/20 14:15 100 MLS/HR Lidocaine HCl (Buffered Lidocaine 1%) 3 ml 1X ONCE 05/17/20 13:45 05/17/20 13:51 DC 05/17/20 13:45 10 ML Lidocaine/ Epinephrine (LIDOCAINE 1%-EPI 1:100,000 Multi-Dose) 20 ml 1X ONCE 05/14/20 11:45 05/14/20 11:46 DC 05/14/20 12:40 8 ML Linezolid/Dextrose 300 ml @ 300 mls/hr Q12HR 05/20/20 13:00 05/23/20 21:23 300 MLS/HR Menthol/Methyl Salicylate (Bengay Greaseless Cream) 1 amparo PRN QID PRN 05/19/20 21:15 05/22/20 08:21 1 AMPARO Meropenem 1 gm/ Sodium Chloride 100 ml @ 200 mls/hr Q12HR 05/09/20 11:30 05/15/20 09:01 DC 05/15/20 08:42 200 MLS/HR Meropenem 500 mg/ Sodium Chloride 50 ml @ 100 mls/hr Q8HRS 05/20/20 13:00 05/24/20 06:20 100 MLS/HR Midazolam HCl (Versed) 2 mg 1X ONCE 05/17/20 13:45 05/17/20 13:51 DC 05/17/20 13:30 2 MG Mirtazapine (Remeron) 7.5 mg QHS 05/18/20 21:00 05/20/20 12:08 DC Morphine Sulfate (Morphine Sulfate) 2 mg PRN Q4HRS PRN 05/18/20 10:45 05/24/20 08:26 2 MG Ondansetron HCl (Zofran) 4 mg PRN Q6HRS PRN 05/12/20 13:15 05/19/20 08:58 4 MG Pantoprazole Sodium (PROTONIX VIAL for IV PUSH) 40 mg DAILYAC 05/20/20 13:00 05/24/20 08:25 40 MG Pantoprazole Sodium (Protonix) 40 mg DAILYAC 05/19/20 07:30 05/20/20 11:51 DC Phytonadione (Vitamin K Ampule) 2 mg 1X ONCE 05/09/20 11:00 05/09/20 11:01 DC 05/09/20 11:34 2 MG Potassium Chloride (Klor-Con) 20 meq 1X ONCE 05/10/20 10:30 05/10/20 10:31 DC 05/10/20 10:29 20 MEQ Prochlorperazine Edisylate (Compazine) 5 mg PACU PRN PRN 05/12/20 07:00 05/13/20 06:59 DC Promethazine HCl (Phenergan Supp) 25 mg PRN Q8HRS PRN 05/19/20 10:45 05/19/20 11:58 25 MG Propofol (Diprivan) 200 mg STK-MED ONCE 05/12/20 10:12 05/12/20 10:12 DC Ringer's Solution 1,000 ml @ 75 mls/hr 1X ONCE 05/12/20 07:30 05/12/20 20:49 DC 05/12/20 11:46 75 MLS/HR Sertraline HCl (Zoloft) 50 mg DAILY 05/08/20 09:00 05/09/20 11:19 DC 05/09/20 08:44 50 MG Sodium Chloride 1,000 ml @ 75 mls/hr [id number] 05/18/20 10:45 05/21/20 10:54 DC 05/18/20 12:02 50 MLS/HR Spironolactone (Aldactone) 50 mg BID 05/13/20 12:00 05/15/20 12:34 DC 05/15/20 08:43 50 MG Succinylcholine Chloride (Anectine) 200 mg STK-MED ONCE 05/10/20 09:00 05/12/20 12:52 DC Tramadol HCl (Ultram) 50 mg TID 05/12/20 14:00 05/21/20 10:54 DC 05/21/20 08:38 50 MG Vancomycin HCl (Vancomycin Oral Solution) 125 mg BID 05/22/20 21:00 05/24/20 08:34 125 MG Labs: Lab Laboratory Tests Test 05/24/20 07:30 White Blood Count 6.1 x10^3/uL (4.0-11.0) Red Blood Count 2.82 x10^6/uL (3.50-5.40) Hemoglobin 8.8 g/dL (12.0-15.5) Hematocrit 26.2 % (36.0-47.0) Mean Corpuscular Volume 93 fL (79-100) Mean Corpuscular Hemoglobin 31 pg (25-35) Mean Corpuscular Hemoglobin Concent 34 g/dL (31-37) Red Cell Distribution Width 18.7 % (11.5-14.5) Platelet Count 233 x10^3/uL (140-400) Neutrophils (%) (Auto) 84 % (31-73) Lymphocytes (%) (Auto) 8 % (24-48) Monocytes (%) (Auto) 7 % (0-9) Eosinophils (%) (Auto) 1 % (0-3) Basophils (%) (Auto) 0 % (0-3) Neutrophils # (Auto) 5.2 x10^3/uL (1.8-7.7) Lymphocytes # (Auto) 0.5 x10^3/uL (1.0-4.8) Monocytes # (Auto) 0.4 x10^3/uL (0.0-1.1) Eosinophils # (Auto) 0.0 x10^3/uL (0.0-0.7) Basophils # (Auto) 0.0 x10^3/uL (0.0-0.2) Sodium Level 132 mmol/L (136-145) Potassium Level 4.4 mmol/L (3.5-5.1) Chloride Level 102 mmol/L (98-107) Carbon Dioxide Level 22 mmol/L (21-32) Anion Gap 8 (6-14) Blood Urea Nitrogen 20 mg/dL (7-20) Creatinine 0.8 mg/dL (0.6-1.0) Estimated GFR (Cockcroft-Gault) 68.7 BUN/Creatinine Ratio 25 (6-20) Glucose Level 166 mg/dL (70-99) Calcium Level 7.9 mg/dL (8.5-10.1) Total Bilirubin 4.6 mg/dL (0.2-1.0) Aspartate Amino Transf (AST/SGOT) 39 U/L (15-37) Alanine Aminotransferase (ALT/SGPT) 28 U/L (14-59) Alkaline Phosphatase 527 U/L (46-116) Total Protein 5.8 g/dL (6.4-8.2) Albumin 1.6 g/dL (3.4-5.0) Albumin/Globulin Ratio 0.4 (1.0-1.7) Objective: Assessment: 1. Fever - better. 2. Leukocytosis - improved 3. Abdominal pain.s/p Paracentesis 1900 ml out 364 WBC 4. Ascites ? sec to obstruction. 5. Diarrhea. 6. Recent history of Clostridium difficile colitis on 04/14/2020. 7. Hyperbilirubinemia/transaminitis - ? post procedure 8. 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 She did not tolerate adjuvant chemotherapy. 9. Severe protein-calorie malnutrition. 10 blood culture positive gram-positive and gram-negative likely from the biliary source Plan: Plan of Care Continue antibiotics for now Continue supportive care Awaiting transfer to hospice tomorrow JAKE CANDELARIA MD May 24, 2020 08:54
--- NOTE | 2020-05-24 09:57 | PDOC ---
PROGRESS NOTES Date of Service DATE: 05/24/20 TIME: 09:54 Subjective Subjective spoke with patient and and son Shimon and all concur with hospice at home. lab reviewed. Objective Objective Vital Signs Date Time Temp Pulse Resp B/P (MAP) Pulse Ox O2 Delivery O2 Flow Rate FiO2 05/24/20 08:26 Room Air 05/24/20 07:00 97.8 75 16 99/59 (72) 97 97.8 05/21/20 09:38 2.0 Intake and Output 05/24/20 07:00 Intake Total 1485 ml Balance 1485 ml Intake Oral 60 ml IV Total 525 ml Other 900 ml # Voids 3 # Bowel Movements 1 Physical Exam Abdomen: Soft, Other (ascites. 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 paracentesis 05/10/20. benign cells. atypical cells seen with special stains on repeat specimen 4. Anemia. 5. Hypokalemia treated 6. Severe protein-calorie malnutrition. 7. Fibromyalgia. 8. Hypotension treated low grade fever resolved abdominal pain better hx of c,.diff bile duct stricture ballon dilatation 05/14 . left biliary tree still dilated internal to external bile drain placed 05/17 pleurix tube placed for intermittent paracentesis depression acute blood loss anemia. hgb better after 4 units prbc suspect GI bleed pre renal azotemia improved leukocytosis resolved GNR and GPC in chains bacteremia Plan Plan of Care continue iv antibiotic consult hospice patient concurs with dnr status anticipate dismissal tomorrow with hospice Comment Review of Relevant I have reviewed the following items betty (where applicable) has been applied. Labs Laboratory Tests Test 05/24/20 07:30 White Blood Count 6.1 x10^3/uL (4.0-11.0) Red Blood Count 2.82 x10^6/uL (3.50-5.40) Hemoglobin 8.8 g/dL (12.0-15.5) Hematocrit 26.2 % (36.0-47.0) Mean Corpuscular Volume 93 fL (79-100) Mean Corpuscular Hemoglobin 31 pg (25-35) Mean Corpuscular Hemoglobin Concent 34 g/dL (31-37) Red Cell Distribution Width 18.7 % (11.5-14.5) Platelet Count 233 x10^3/uL (140-400) Neutrophils (%) (Auto) 84 % (31-73) Lymphocytes (%) (Auto) 8 % (24-48) Monocytes (%) (Auto) 7 % (0-9) Eosinophils (%) (Auto) 1 % (0-3) Basophils (%) (Auto) 0 % (0-3) Neutrophils # (Auto) 5.2 x10^3/uL (1.8-7.7) Lymphocytes # (Auto) 0.5 x10^3/uL (1.0-4.8) Monocytes # (Auto) 0.4 x10^3/uL (0.0-1.1) Eosinophils # (Auto) 0.0 x10^3/uL (0.0-0.7) Basophils # (Auto) 0.0 x10^3/uL (0.0-0.2) Sodium Level 132 mmol/L (136-145) Potassium Level 4.4 mmol/L (3.5-5.1) Chloride Level 102 mmol/L (98-107) Carbon Dioxide Level 22 mmol/L (21-32) Anion Gap 8 (6-14) Blood Urea Nitrogen 20 mg/dL (7-20) Creatinine 0.8 mg/dL (0.6-1.0) Estimated GFR (Cockcroft-Gault) 68.7 BUN/Creatinine Ratio 25 (6-20) Glucose Level 166 mg/dL (70-99) Calcium Level 7.9 mg/dL (8.5-10.1) Total Bilirubin 4.6 mg/dL (0.2-1.0) Aspartate Amino Transf (AST/SGOT) 39 U/L (15-37) Alanine Aminotransferase (ALT/SGPT) 28 U/L (14-59) Alkaline Phosphatase 527 U/L (46-116) Total Protein 5.8 g/dL (6.4-8.2) Albumin 1.6 g/dL (3.4-5.0) Albumin/Globulin Ratio 0.4 (1.0-1.7) Laboratory Tests Test 05/24/20 07:30 White Blood Count 6.1 x10^3/uL (4.0-11.0) Red Blood Count 2.82 x10^6/uL (3.50-5.40) Hemoglobin 8.8 g/dL (12.0-15.5) Hematocrit 26.2 % (36.0-47.0) Mean Corpuscular Volume 93 fL (79-100) Mean Corpuscular Hemoglobin 31 pg (25-35) Mean Corpuscular Hemoglobin Concent 34 g/dL (31-37) Red Cell Distribution Width 18.7 % (11.5-14.5) Platelet Count 233 x10^3/uL (140-400) Neutrophils (%) (Auto) 84 % (31-73) Lymphocytes (%) (Auto) 8 % (24-48) Monocytes (%) (Auto) 7 % (0-9) Eosinophils (%) (Auto) 1 % (0-3) Basophils (%) (Auto) 0 % (0-3) Neutrophils # (Auto) 5.2 x10^3/uL (1.8-7.7) Lymphocytes # (Auto) 0.5 x10^3/uL (1.0-4.8) Monocytes # (Auto) 0.4 x10^3/uL (0.0-1.1) Eosinophils # (Auto) 0.0 x10^3/uL (0.0-0.7) Basophils # (Auto) 0.0 x10^3/uL (0.0-0.2) Sodium Level 132 mmol/L (136-145) Potassium Level 4.4 mmol/L (3.5-5.1) Chloride Level 102 mmol/L (98-107) Carbon Dioxide Level 22 mmol/L (21-32) Anion Gap 8 (6-14) Blood Urea Nitrogen 20 mg/dL (7-20) Creatinine 0.8 mg/dL (0.6-1.0) Estimated GFR (Cockcroft-Gault) 68.7 BUN/Creatinine Ratio 25 (6-20) Glucose Level 166 mg/dL (70-99) Calcium Level 7.9 mg/dL (8.5-10.1) Total Bilirubin 4.6 mg/dL (0.2-1.0) Aspartate Amino Transf (AST/SGOT) 39 U/L (15-37) Alanine Aminotransferase (ALT/SGPT) 28 U/L (14-59) Alkaline Phosphatase 527 U/L (46-116) Total Protein 5.8 g/dL (6.4-8.2) Albumin 1.6 g/dL (3.4-5.0) Albumin/Globulin Ratio 0.4 (1.0-1.7) Microbiology 05/21/20 Blood Culture - Final, Complete 05/20/20 Urine Culture - Final, Complete 05/10/20 Gram Stain - Final, Complete 05/10/20 Aerobic and Anaerobic Culture - Final, Complete Medications Current Medications Hydroxyzine HCl (Atarax) 10 mg PRN TID PRN PO ITCHING Last administered on 05/18/20at 15:09; Start 05/07/20 at 17:00; Stop 05/21/20 at 10:54; Status DC Sertraline HCl (Zoloft) 50 mg DAILY PO Last administered on 05/09/20at 08:44; S tart 05/08/20 at 09:00; Stop 05/09/20 at 11:19; Status DC Amitriptyline HCl (Elavil) 50 mg QHS PO Last administered on 05/17/20at 21:31; Start 05/07/20 at 21:00; Stop 05/20/20 at 12:08; Status DC Acetaminophen (Tylenol) 325 mg PRN Q6HRS PRN PO MILD PAIN / TEMP > 100.3'F; Start 05/07/20 at 20:00 Iohexol (Omnipaque 300 Mg/ml) 75 ml 1X ONCE IV Last administered on 05/08/20at 13:30; Start 05/08/20 at 11:45; Stop 05/08/20 at 11:46; Status DC Info (CONTRAST GIVEN -- Rx MONITORING) 1 each PRN DAILY PRN MC SEE COMMENTS; Start 05/08/20 at 11:45; Stop 05/10/20 at 11:44; Status DC Tramadol HCl (Ultram) 50 mg TID PO Last administered on 05/09/20at 07:35; Start 05/08/20 at 14:00; Stop 05/09/20 at 11:15; Status DC Potassium Chloride (Klor-Con) 40 meq 1X ONCE PO Last administered on 05/08/20at 14:10; Start 05/08/20 at 12:15; Stop 05/08/20 at 12:16; Status DC Sodium Chloride 1,000 ml @ 60 mls/hr [id number] IV Last administered on 05/09/20at 07:36; Start 05/08/20 at 12:30; Stop 05/09/20 at 11:15; Status DC Amylase/Lipase/ Protease (Zenpep 5,000) 2 cap TIDWMEALS PO Last administered on 05/16/20at 12:28; Start 05/08/20 at 13:00 Phytonadione (Vitamin K Ampule) 2 mg 1X ONCE SQ Last administered on 05/09/20at 11:34; Start 05/09/20 at 11:00; Stop 05/09/20 at 11:01; Status DC Meropenem 1 gm/ Sodium Chloride 100 ml @ 200 mls/hr Q12HR IV Last administered on 05/15/20at 08:42; Start 05/09/20 at 11:30; Stop 05/15/20 at 09:01; Status DC Linezolid/Dextrose 300 ml @ 300 mls/hr Q12HR IV Last administered on 05/15/20at 08:42; Start 05/09/20 at 12:00; Stop 05/15/20 at 09:01; Status DC Acetaminophen/ Hydrocodone Bitart (Lortab 5/325) 1 tab PRN Q4HRS PRN PO MODERATE - SEVERE PAIN Last administered on 05/16/20at 18:37; Start 05/09/20 at 11:15; Stop 05/18/20 at 10:35; Status DC Vancomycin HCl (Vancomycin Oral Solution) 125 mg [id number] PO Last administered on 05/22/20at 08:18; Start 05/09/20 at 14:00; Stop 05/22/20 at 12:13; Status DC Lactobacillus Rhamnosus (Culturelle) 1 cap BID PO Last administered on 05/24/20at 08:26; Start 05/09/20 at 21:00 Lidocaine HCl (Buffered Lidocaine 1%) 3 ml STK-MED ONCE .ROUTE ; Start 05/10/20 at 08:09; Stop 05/10/20 at 08:09; Status DC Lidocaine HCl (Buffered Lidocaine 1%) 6 ml 1X ONCE INJ Last administered on 05/10/20at 08:15; Start 05/10/20 at 08:15; Stop 05/10/20 at 08:19; Status DC Lidocaine HCl (Buffered Lidocaine 1%) 3 ml 1X ONCE INJ ; Start 05/10/20 at 09:00; Stop 05/10/20 at 09:01; Status DC Potassium Chloride (Klor-Con) 20 meq 1X ONCE PO Last administered on 05/10/20at 10:29; Start 05/10/20 at 10:30; Stop 05/10/20 at 10:31; Status DC Levofloxacin/ Dextrose 100 ml @ 100 mls/hr 1X ONCE IV Last administered on 05/12/20at 14:15; Start 05/12/20 at 09:00; Stop 05/12/20 at 09:59; Status DC Ringer's Solution 1,000 ml @ 30 mls/hr Q24H IV Last administered on 05/12/20at 09:39; Start 05/12/20 at 07:00; Stop 05/12/20 at 18:59; Status DC Prochlorperazine Edisylate (Compazine) 5 mg PACU PRN PRN IV NAUSEA, MRX1; Start 05/12/20 at 07:00; Stop 05/13/20 at 06:59; Status DC Ringer's Solution 1,000 ml @ 75 mls/hr 1X ONCE IV Last administered on 05/12/20at 11:46; Start 05/12/20 at 07:30; Stop 05/12/20 at 20:49; Status DC Iohexol (Omnipaque 300 Mg/ml) 100 ml STK-MED ONCE .ROUTE ; Start 05/12/20 at 09:24; Stop 05/12/20 at 09:24; Status DC Propofol (Diprivan) 200 mg STK-MED ONCE IV ; Start 05/12/20 at 10:12; Stop 05/12/20 at 10:12; Status DC Succinylcholine Chloride (Anectine) 200 mg STK-MED ONCE .ROUTE ; Start 05/10/20 at 09:00; Stop 05/12/20 at 12:52; Status DC Ephedrine Sulfate (ePHEDrine PF IN SALINE SYRINGE) 50 mg STK-MED ONCE IV ; Start 05/10/20 at 09:00; Stop 05/12/20 at 12:52; Status DC Morphine Sulfate (Morphine Sulfate) 1 mg PRN Q4HRS PRN IV PAIN Last administered on 05/18/20at 08:14; Start 05/12/20 at 13:15; Stop 05/18/20 at 10:35; Status DC Ondansetron HCl (Zofran) 4 mg PRN Q6HRS PRN IVP NAUSEA/VOMITING Last administered on 05/19/20at 08:58; Start 05/12/20 at 13:15 Tramadol HCl (Ultram) 50 mg TID PO Last administered on 05/21/20at 08:38; Start 05/12/20 at 14:00; Stop 05/21/20 at 10:54; Status DC Spironolactone (Aldactone) 50 mg BID PO Last administered on 05/15/20at 08:43; Start 05/13/20 at 12:00; Stop 05/15/20 at 12:34; Status DC Hydrocortisone Acetate (Anucort-Hc) 25 mg BID FL Last administered on 05/24/20at 08:34; Start 05/13/20 at 12:00 Lidocaine/ Epinephrine (LIDOCAINE 1%-EPI 1:100,000 Multi-Dose) 20 ml STK-MED ONCE .ROUTE ; Start 05/14/20 at 10:55; Stop 05/14/20 at 10:55; Status DC Iohexol (Omnipaque 240 Mg/ml) 50 ml STK-MED ONCE .ROUTE ; Start 05/14/20 at 10:59; Stop 05/14/20 at 11:00; Status DC Midazolam HCl (Versed) 5 mg STK-MED ONCE .ROUTE ; Start 05/14/20 at 11:18; Stop 05/14/20 at 11:18; Status DC Fentanyl Citrate (Fentanyl 2ml Vial) 100 mcg STK-MED ONCE .ROUTE ; Start 05/14/20 at 11:18; Stop 05/14/20 at 11:18; Status DC Midazolam HCl (Versed) 5 mg 1X ONCE IV Last administered on 05/14/20at 12:41; Start 05/14/20 at 11:45; Stop 05/14/20 at 11:46; Status DC Fentanyl Citrate (Fentanyl 2ml Vial) 100 mcg 1X ONCE IV Last administered on 05/14/20at 12:41; Start 05/14/20 at 11:45; Stop 05/14/20 at 11:46; Status DC Lidocaine/ Epinephrine (LIDOCAINE 1%-EPI 1:100,000 Multi-Dose) 20 ml 1X ONCE INJ Last administered on 05/14/20at 12:40; Start 05/14/20 at 11:45; Stop 05/14/20 at 11:46; Status DC Iohexol (Omnipaque 240 Mg/ml) 50 ml 1X ONCE IJ Last administered on 05/14/20at 12:40; Start 05/14/20 at 11:45; Stop 05/14/20 at 11:46; Status DC Info (CONTRAST GIVEN -- Rx MONITORING) 1 each PRN DAILY PRN MC SEE COMMENTS; Start 05/14/20 at 11:45; Stop 05/16/20 at 11:44; Status DC Fentanyl Citrate (Fentanyl 2ml Vial) 100 mcg STK-MED ONCE .ROUTE ; Start 05/14/20 at 13:15; Stop 05/14/20 at 13:15; Status DC Iohexol (Omnipaque 300 Mg/ml) 100 ml STK-MED ONCE .ROUTE ; Start 05/14/20 at 13:27; Stop 05/14/20 at 13:28; Status DC Albumin Human 100 ml @ 100 mls/hr 1X ONCE IV ; Start 05/16/20 at 11:00; Stop 05/16/20 at 11:59; Status DC Lidocaine HCl (Buffered Lidocaine 1%) 3 ml STK-MED ONCE .ROUTE ; Start 05/17/20 at 13:11; Stop 05/17/20 at 13:12; Status DC Iohexol (Omnipaque 240 Mg/ml) 50 ml STK-MED ONCE .ROUTE ; Start 05/17/20 at 13:15; Stop 05/17/20 at 13:16; Status DC Albumin Human 100 ml @ As Directed STK-MED ONCE IV ; Start 05/17/20 at 13:16; Stop 05/17/20 at 13:17; Status DC Cefazolin Sodium (Ancef) 1 gm STK-MED ONCE IVP ; Start 05/17/20 at 13:16; Stop 05/17/20 at 13:17; Status DC Midazolam HCl (Versed) 2 mg STK-MED ONCE .ROUTE ; Start 05/17/20 at 13:16; Stop 05/17/20 at 13:17; Status DC Fentanyl Citrate (Fentanyl 2ml Vial) 100 mcg STK-MED ONCE .ROUTE ; Start 05/17/20 at 13:17; Stop 05/17/20 at 13:17; Status DC Cefazolin Sodium (Ancef) 1 gm STK-MED ONCE IVP ; Start 05/17/20 at 13:17; Stop 05/17/20 at 13:17; Status DC Lidocaine HCl (Buffered Lidocaine 1%) 3 ml 1X ONCE IJ Last administered on 05/17/20at 13:45; Start 05/17/20 at 13:45; Stop 05/17/20 at 13:51; Status DC Midazolam HCl (Versed) 2 mg 1X ONCE IV Last administered on 05/17/20at 13:30; Start 05/17/20 at 13:45; Stop 05/17/20 at 13:51; Status DC Fentanyl Citrate (Fentanyl 2ml Vial) 100 mcg 1X ONCE IV Last administered on 05/17/20at 13:30; Start 05/17/20 at 13:45; Stop 05/17/20 at 13:51; Status DC Cefazolin Sodium (Ancef) 1 gm 1X ONCE IVP Last administered on 05/17/20at 13:55; Start 05/17/20 at 13:45; Stop 05/17/20 at 13:51; Status DC Albumin Human 100 ml @ 100 mls/hr 1X ONCE IV Last administered on 05/17/20at 13:45; Start 05/17/20 at 13:45; Stop 05/17/20 at 14:44; Status DC Iohexol (Omnipaque 240 Mg/ml) 50 ml 1X ONCE IJ Last administered on 05/17/20at 14:07; Start 05/17/20 at 13:45; Stop 05/17/20 at 13:51; Status DC Info (CONTRAST GIVEN -- Rx MONITORING) 1 each PRN DAILY PRN MC SEE COMMENTS; Start 05/17/20 at 14:00; Stop 05/19/20 at 13:59; Status DC Morphine Sulfate (Morphine Sulfate) 2 mg PRN Q4HRS PRN IV PAIN Last administered on 05/24/20at 08:26; Start 05/18/20 at 10:45 Mirtazapine (Remeron) 7.5 mg QHS PO ; Start 05/18/20 at 21:00; Stop 05/20/20 at 12:08; Status DC Sodium Chloride 1,000 ml @ 75 mls/hr [id number] IV Last administered on 05/18/20at 12:02; Start 05/18/20 at 10:45; Stop 05/21/20 at 10:54; Status DC Acetaminophen/ Hydrocodone Bitart (Lortab 10/325) 1 tab PRN Q4HRS PRN PO MODERATE PAIN Last administered on 05/23/20at 14:56; Start 05/18/20 at 10:45 Pantoprazole Sodium (Protonix) 40 mg DAILYAC PO ; Start 05/19/20 at 07:30; Stop 05/20/20 at 11:51; Status DC Amino Acids/ Glycerin/ Electrolytes 1,000 ml @ 75 mls/hr [id number] IV Last administered on 05/24/20at 06:51; Start 05/19/20 at 08:45 Promethazine HCl (Phenergan Supp) 25 mg PRN Q8HRS PRN FL NAUSEA/VOMITING Last administered on 05/19/20at 11:58; Start 05/19/20 at 10:45 Fentanyl (Duragesic 12mcg/ Hr Patch) 1 patch Q3DAYS TD Last administered on 05/22/20 08:20; Start 05/19/20 at 18:00 Menthol/Methyl Salicylate (Bengay Greaseless Cream) 1 amparo PRN QID PRN TP MUSCLE PAIN Last administered on 05/22/20at 08:21; Start 05/19/20 at 21:15 Pantoprazole Sodium (PROTONIX VIAL for IV PUSH) 40 mg DAILYAC IVP Last administered on 05/24/20at 08:25; Start 05/20/20 at 13:00 Linezolid/Dextrose 300 ml @ 300 mls/hr Q12HR IV Last administered on 05/23/20at 21:23; Start 05/20/20 at 13:00 Meropenem 500 mg/ Sodium Chloride 50 ml @ 100 mls/hr Q8HRS IV Last administered on 05/24/20at 06:20; Start 05/20/20 at 13:00 Vancomycin HCl (Vancomycin Oral Solution) 125 mg BID PO Last administered on 05/24/20at 08:34; Start 05/22/20 at 21:00 Active Scripts Active Tramadol Hcl 50 Mg Tablet 50 Mg PO TID Flagyl (Metronidazole) 500 Mg Tablet 500 Mg PO Q8HRS Cephalexin 250 Mg Capsule 500 Mg PO TID Zoloft (Sertraline Hcl) 50 Mg Tablet 50 Mg PO DAILY Reported Amitriptyline Hcl 50 Mg Tablet 50 Mg PO QHS Hydroxyzine Hcl 10 Mg Tablet 10 Mg PO PRN TID PRN Vitals/I & O Vital Sign - Last 24 Hours 05/23/20 05/23/20 05/23/20 05/23/20 10:14 11:00 14:56 15:00 Temp 97.7 97.8 97.7 97.8 Pulse 83 84 Resp 16 16 B/P (MAP) 95/56 (69) 112/62 (79) Pulse Ox 98 98 O2 Delivery Room Air Room Air Room Air Room Air 05/23/20 05/23/20 05/23/20 05/23/20 15:56 17:10 17:40 19:00 Temp 98.0 98.0 Pulse 84 Resp 18 B/P (MAP) 113/68 (83) Pulse Ox 96 O2 Delivery Room Air Room Air Room Air Room Air 05/23/20 05/23/20 05/23/20 05/23/20 20:10 21:34 22:04 23:00 Temp 98.4 98.4 Pulse 85 Resp 20 19 B/P (MAP) 109/64 (79) Pulse Ox 97 O2 Delivery Room Air Room Air Room Air Room Air 05/24/20 05/24/20 05/24/20 05/24/20 02:17 02:47 03:00 07:00 Temp 98.4 97.8 98.4 97.8 Pulse 83 75 Resp 20 20 19 16 B/P (MAP) 102/62 (75) 99/59 (72) Pulse Ox 96 97 O2 Delivery Room Air Room Air Room Air Room Air 05/24/20 08:26 O2 Delivery Room Air Intake and Output 05/23/20 05/23/20 05/24/20 15:00 23:00 07:00 Intake Total 0 ml 1485 ml Balance 0 ml 1485 ml Justifications for Admission Other Justification Nutrition Consultation Dietary Evaluation: Recommendations by RD: Dietary education by RD, Protein supplementation, PPN/TPN Comments: REC: Continue w/ PPN as ordered for nutrition support needs at this time. 34.8 g protein, 294 g dextrose per 1200 ml at 50 ml/ hr.Continue and advance diet per MD. Expected Outcomes/Goals: to meet >75% est nutr needs Malnutrition Findings: Muscle Mass (Severe): Severe Depletion Food and Nutrition Intake (Sev: <50% est energy req 5days Body Fat Depletion (Non Severe: Mod to Severe Weight Status: Underweight Fluid Accumulation (Severe): Severe SRINIVASA ABDULLAHI MD May 24, 2020 09:57
[2020-05-24] MEDS ORDERED: PROM25SU3 PR (10:07)
--- NOTE | 2020-05-24 10:09 | SNU/HH DC ---
DISCHARGE ORDERS DISCHARGE INFORMATION: DISCHARGE DATE: May 25, 2020 FINAL DIAGNOSIS cholangiocarcinoma. ascites and gastric outlet obstruction and bacteremia CONDITION ON DISCHARGE: Stable CODE STATUS: Code Status: DNR/DNI HOSPICE: HOSPICE: Yes HOSPICE EVAL & TREAT: Yes POST DISCHARGE ORDERS: ACTIVITY ORDERS: Activity as tolerated WEIGHT BEARING STATUS: As tolerated WOUND/INCISION CARE: No wound care needed OTHER ORDERS: drains?,PEG tube care flush with water 80 cc tid CHECKS AFTER DISCHARGE: COMMENTS: upper quadrant biliary drain FOLLOW-UP: LAB ORDERS FOR FOLLOW-UP: cbc ,bmp weekly for 4 weeks Additional Instructions: roxinal 20 mg/cc. 0.25 to 0.5 cc every hour SL prn for air hunger or pain TREATMENT/EQUIPMENT ORDERS: ADAPTIVE EQUIPMENT NEEDED: Walker Physical Therapy For: Evalulation/Treatment Occupational Therapy For: Evaluation/Treatment DISCHARGE MEDICATIONS: Home Meds Active Scripts Promethazine Hcl (PROMETHEGAN) 25 Mg Supp.rect, 25 MG NE PRN Q8HRS PRN for NAUSEA/VOMITING, #10 SUPP.RECT Prov:SRINIVASA ABDULLAHI MD 05/24/20 Discontinued Reported Medications Amitriptyline Hcl (AMITRIPTYLINE HCL) 50 Mg Tablet, 50 MG PO QHS for 04/14/20 Hydroxyzine Hcl (HYDROXYZINE HCL) 10 Mg Tablet, 10 MG PO PRN TID PRN for ITCHING 04/14/20 Discontinued Scripts Tramadol Hcl (TRAMADOL HCL) 50 Mg Tablet, 50 MG PO TID for fibromyalgia, #30 TAB Prov:SRINIVASA ABDULLAHI MD 04/16/20 Metronidazole (FLAGYL) 500 Mg Tablet, 500 MG PO Q8HRS for c. diff colitis, #30 TAB Prov:SRINIVASA ABDULLAHI MD 04/16/20 Cephalexin (CEPHALEXIN) 250 Mg Capsule, 500 MG PO TID for uti, #15 CAP Prov:SRINIVASA ABDULLAHI MD 04/16/20 Sertraline Hcl (ZOLOFT) 50 Mg Tablet, 50 MG PO DAILY, #30 BOTTLE Prov:SRINIVASA ABDULLAHI MD 04/17/15 SRINIVASA ABDULLAHI MD May 24, 2020 10:09
--- NOTE | 2020-05-24 10:16 | PDOC ---
Provider Note Date of Service: DATE: 05/24/20 TIME: 10:16 Provider Note discharge summary dictated # [id number] Justifications for Admission Other Justification SRINIVASA ABDULLAHI MD May 24, 2020 10:16
[2020-05-24] MEDS ORDERED: FENT1PAT13 TD (10:17)
[2020-05-24 10:30] VITALS: BP 97/53
--- NOTE | 2020-05-24 11:24 | DS ---
DATE OF DISCHARGE: 05/24/2020 CONSULTANTS: Include Dr. Chris Taylor, Dr. Beau Taylor, Dr. Eli Miranda, Dr. Bingham, Dr. Scales. PROCEDURES: 1. Placement of a peritoneal catheter for removal of ascitic fluid. 2. Placement of an intrinsic to extrinsic biliary drainage tube. FINAL DIAGNOSES: 1. Cholangiocarcinoma. 2. Ascites. 3. Gram-positive cocci and Gram-negative vidhi bacteremia. 4. Anemia. 5. Hypokalemia. 6. Severe protein-calorie malnutrition. 7. Fibromyalgia. 8. Hypotension, treated. 9. Low-grade fever, resolved. 10. Abdominal pain. 11. History of Clostridium difficile colitis. 12. Biliary stricture. 13. Depression. 14. Obstructive jaundice. 15. Acute blood loss anemia. 16. Suspect gastrointestinal bleed. 17. Prerenal azotemia. 18. Leukocytosis, resolved. HOSPITAL COURSE: The patient is an 84-year-old white female with history of cholangiocarcinoma, treated with Whipple's procedure in 04/2019, who has been feeling weak and noted to be more jaundiced. She had abdominal distention. A CAT scan of the abdomen and pelvis and ultrasound of abdomen was done on 04/14/2020 which showed pneumobilia. She had some ascites at that time. She has got more jaundiced and she was admitted to [facility] on 05/07/2020. She was noted to have a biliary stricture near the jejunum at the site of her previous Whipple's procedure. An EGD was done and the opening to the bile duct could not be cannulated or found. The patient was seen by Dr. Scales and had a percutaneous placement of a biliary tube for internal and external drainage and also had a PleurX placed for drainage of her ascites, which was done on a couple of occasions. The ascitic fluid initially was benign and another sample was sent with atypical cells and special stains have been ordered and are pending. In addition, she had x-rays of her abdomen and had gastric outlet obstruction. An NG tube could not be placed due to some stricture in the nose and she did not want to pursue that route. She did not have any vomiting. Jaundice actually improved with a total bilirubin of 4 and she was getting weaker and wanted to be a do not resuscitate and wanted hospice. The family was in agreement with hospice. She did develop Gram-negative vidhi and Gram-positive cocci bacteremia and received IV antibiotics, seen by the Infectious Disease doctor and she received IV Zyvox and meropenem. She also is on a fentanyl patch 12 mcg patch every 72 hours. She will be seen by hospice hopefully today and then hopefully she will be dismissed to home with hospice. She is a do not resuscitate, which she concurs with. I spoke with her son, ____, a physician and the at bedside, everyone was in full agreement with hospice and so we anticipate that she will be dismissed to home with hospice on Phenergan suppository 25 mg 1 per rectum every 8 hours p.r.n. for nausea, vomiting, Roxanol 20 mg per mL, 0.25 to 0.5 mL every hour p.r.n. sublingual p.r.n. and fentanyl patch 12 mcg patch every 72 hours. SRINIVASA ABDULLAHI MD DR: ISAK/valorie JOB#: [id number] / [id number]
--- NOTE | 2020-05-24 13:21 | PDOC ---
Date of Service: DATE: 05/24/20 TIME: 13:18 Objective: Objective: D/w nurse, reviewed chart - plans for home w/ Hospice. Vital Signs: Vital Signs Date Time Temp Pulse Resp B/P (MAP) Pulse Ox O2 Delivery O2 Flow Rate FiO2 05/24/20 10:30 97.7 80 16 97/53 (68) 98 Room Air 97.7 Labs: Laboratory Tests Test 05/24/20 07:30 White Blood Count 6.1 x10^3/uL Red Blood Count 2.82 x10^6/uL Hemoglobin 8.8 g/dL Hematocrit 26.2 % Mean Corpuscular Volume 93 fL Mean Corpuscular Hemoglobin 31 pg Mean Corpuscular Hemoglobin Concent 34 g/dL Red Cell Distribution Width 18.7 % Platelet Count 233 x10^3/uL Neutrophils (%) (Auto) 84 % Lymphocytes (%) (Auto) 8 % Monocytes (%) (Auto) 7 % Eosinophils (%) (Auto) 1 % Basophils (%) (Auto) 0 % Neutrophils # (Auto) 5.2 x10^3/uL Lymphocytes # (Auto) 0.5 x10^3/uL Monocytes # (Auto) 0.4 x10^3/uL Eosinophils # (Auto) 0.0 x10^3/uL Basophils # (Auto) 0.0 x10^3/uL Sodium Level 132 mmol/L Potassium Level 4.4 mmol/L Chloride Level 102 mmol/L Carbon Dioxide Level 22 mmol/L Anion Gap 8 Blood Urea Nitrogen 20 mg/dL Creatinine 0.8 mg/dL Estimated GFR (Cockcroft-Gault) 68.7 BUN/Creatinine Ratio 25 Glucose Level 166 mg/dL Calcium Level 7.9 mg/dL Total Bilirubin 4.6 mg/dL Aspartate Amino Transf (AST/SGOT) 39 U/L Alanine Aminotransferase (ALT/SGPT) 28 U/L Alkaline Phosphatase 527 U/L Total Protein 5.8 g/dL Albumin 1.6 g/dL Albumin/Globulin Ratio 0.4 BLOOD CULTURE LC Preliminary Preliminary GROWTH OF MIXED ORGANISMS FINAL ID= [LACTOCOCCUS LACTIS] FINAL ID= [KLEBSIELLA OXYTOCA RAOULTELLA] FINAL ID= [CITROBACTER FREUNDII CMPLX] LACTOCOCCUS LACTIS KLEBSIELLA OXYTOCA RAOULTELLA CITROBACTER FREUNDII CMPLX Imaging: KUB 05/23 Impression: Right upper quadrant biliary drain is unchanged. A drainage catheter now projects in the left lower quadrant of the abdomen (prior right mid abdomen) M ild air distended bowel loops identified in the abdomen. 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 Justicifation of Admission Dx: Justifications for Admission: Justification of Admission Dx: Yes CORI PEDERSEN May 24, 2020 13:21
[2020-05-24] MEDS: HYDROcodone/APAP 10/325 1 TAB TABLET PO PRN ×3 (13:27→22:39)
[2020-05-24 14:50] VITALS: BP 115/67
[2020-05-24 19:00] VITALS: BP 129/69
[2020-05-24 23:00] VITALS: BP_SYST 109; BP_SYST 111; BP_DIAS 61; BP_DIAS 66
[2020-05-25] MEDS: MORPHINE SULFATE 2 MG/ML VIAL. IV PRN ×2 (00:41→06:12)
[2020-05-25 03:00] VITALS: BP 118/71
[2020-05-25] MEDS: HYDROcodone/APAP 10/325 1 TAB TABLET PO PRN ×3 (03:35→12:37)
[2020-05-25] MEDS: MEROPENEM 500 MG in IV NORMAL SALINE 50ML 50 ML IV SCH (06:10)
[2020-05-25 07:00] VITALS: BP 94/61
[2020-05-25] MEDS: HYDROCORTISONE ACETATE 25 MG SUPP.RECT PR SCH (08:31)
[2020-05-25] MEDS: PANTOPRAZOLE IV PUSH 40 MG VIAL. IVP SCH (08:31)
[2020-05-25] MEDS: VANCOMYCIN 125 MG/2.5 ML ORAL SOLUTION. PO SCH (08:31)
[2020-05-25] MEDS: fentaNYL 12MCG/HR PATCH 1 PATCH PATCH.TD72 TD SCH (08:32)
[2020-05-25] MEDS: LACTOBACILLUS RHAMNOSUS GG 1 CAPSULE. PO SCH (08:32)
[2020-05-25] MEDS: AMINO AC 3%/ELECTROLYTE/GLYCER 1,000 ML IV SCH (08:32)
--- NOTE | 2020-05-25 09:50 | PDOC ---
Infectious Disease Note Subjective: Subjective Patient without complaints Denies any pain Vital Signs: Vital Signs Vital Signs Date Time Temp Pulse Resp B/P (MAP) Pulse Ox O2 Delivery O2 Flow Rate FiO2 05/25/20 08:32 Room Air 05/25/20 07:00 97.9 80 16 94/61 (72) 97 97.9 05/24/20 14:50 95.0 Physical Exam: PHYSICAL EXAM GENERAL: The patient is in bed and looks well. alert and smiling. HEENT: Scleral icterus. Oropharynx dry. No lesions seen. NECK: Supple. LUNGS: Clear to auscultation. HEART: S1 and S2. ABDOMEN: Distended, drain in place, bowel sounds present. Tender to deep palpation. No rebound. EXTREMITIES: No gross edema or cyanosis. SKIN: Warm to touch. No signs of rash. NEUROLOGIC: Alert and answering questions appropriately. Medications: Inpatient Meds: Current Medications Medications (Trade) Dose Ordered Sig/Meka Start Time Stop Time Status Last Admin Dose Admin Acetaminophen (Tylenol) 325 mg PRN Q6HRS PRN 05/07/20 20:00 Acetaminophen/ Hydrocodone Bitart (Lortab 10/325) 1 tab PRN Q4HRS PRN 05/18/20 10:45 05/25/20 08:32 1 TAB Acetaminophen/ Hydrocodone Bitart (Lortab 5/325) 1 tab PRN Q4HRS PRN 05/09/20 11:15 05/18/20 10:35 DC 05/16/20 18:37 1 TAB Albumin Human 100 ml @ 100 mls/hr 1X ONCE 05/17/20 13:45 05/17/20 14:44 DC 05/17/20 13:45 100 MLS/HR Amino Acids/ Glycerin/ Electrolytes 1,000 ml @ 75 mls/hr [id number] 05/19/20 08:45 05/24/20 20:29 75 MLS/HR Amitriptyline HCl (Elavil) 50 mg QHS 05/07/20 21:00 05/20/20 12:08 DC 05/17/20 21:31 50 MG Amylase/Lipase/ Protease (Zenpep 5,000) 2 cap [id number] 05/08/20 13:00 05/16/20 12:28 2 CAP Cefazolin Sodium (Ancef) 1 gm 1X ONCE 05/17/20 13:45 05/17/20 13:51 DC 05/17/20 13:55 1 GM Ephedrine Sulfate (ePHEDrine PF IN SALINE SYRINGE) 50 mg STK-MED ONCE 05/10/20 09:00 05/12/20 12:52 DC Fentanyl (Duragesic 12mcg/ Hr Patch) 1 patch Q3DAYS 05/19/20 18:00 05/25/20 08:32 1 PATCH Fentanyl Citrate (Fentanyl 2ml Vial) 100 mcg 1X ONCE 05/17/20 13:45 05/17/20 13:51 DC 05/17/20 13:30 75 MCG Hydrocortisone Acetate (Anucort-Hc) 25 mg BID 05/13/20 12:00 05/25/20 08:31 25 MG Hydroxyzine HCl (Atarax) 10 mg PRN TID PRN 05/07/20 17:00 05/21/20 10:54 DC 05/18/20 15:09 10 MG Info (CONTRAST GIVEN -- Rx MONITORING) 1 each PRN DAILY PRN 05/17/20 14:00 05/19/20 13:59 DC Iohexol (Omnipaque 240 Mg/ml) 50 ml 1X ONCE 05/17/20 13:45 05/17/20 13:51 DC 05/17/20 14:07 15 ML Iohexol (Omnipaque 300 Mg/ml) 100 ml STK-MED ONCE 05/14/20 13:27 05/14/20 13:28 DC Lactobacillus Rhamnosus (Culturelle) 1 cap BID 05/09/20 21:00 05/25/20 08:32 1 CAP Levofloxacin/ Dextrose 100 ml @ 100 mls/hr 1X ONCE 05/12/20 09:00 05/12/20 09:59 DC 05/12/20 14:15 100 MLS/HR Lidocaine HCl (Buffered Lidocaine 1%) 3 ml 1X ONCE 05/17/20 13:45 05/17/20 13:51 DC 05/17/20 13:45 10 ML Lidocaine/ Epinephrine (LIDOCAINE 1%-EPI 1:100,000 Multi-Dose) 20 ml 1X ONCE 05/14/20 11:45 05/14/20 11:46 DC 05/14/20 12:40 8 ML Linezolid/Dextrose 300 ml @ 300 mls/hr Q12HR 05/20/20 13:00 05/25/20 08:31 300 MLS/HR Menthol/Methyl Salicylate (Bengay Greaseless Cream) 1 amparo PRN QID PRN 05/19/20 21:15 05/22/20 08:21 1 AMPARO Meropenem 1 gm/ Sodium Chloride 100 ml @ 200 mls/hr Q12HR 05/09/20 11:30 05/15/20 09:01 DC 05/15/20 08:42 200 MLS/HR Meropenem 500 mg/ Sodium Chloride 50 ml @ 100 mls/hr Q8HRS 05/20/20 13:00 05/25/20 06:10 100 MLS/HR Midazolam HCl (Versed) 2 mg 1X ONCE 05/17/20 13:45 05/17/20 13:51 DC 05/17/20 13:30 2 MG Mirtazapine (Remeron) 7.5 mg QHS 05/18/20 21:00 05/20/20 12:08 DC Morphine Sulfate (Morphine Sulfate) 2 mg PRN Q4HRS PRN 05/18/20 10:45 05/25/20 06:12 2 MG Ondansetron HCl (Zofran) 4 mg PRN Q6HRS PRN 05/12/20 13:15 05/19/20 08:58 4 MG Pantoprazole Sodium (PROTONIX VIAL for IV PUSH) 40 mg DAILYAC 05/20/20 13:00 05/25/20 08:31 40 MG Pantoprazole Sodium (Protonix) 40 mg DAILYAC 05/19/20 07:30 05/20/20 11:51 DC Phytonadione (Vitamin K Ampule) 2 mg 1X ONCE 05/09/20 11:00 05/09/20 11:01 DC 05/09/20 11:34 2 MG Potassium Chloride (Klor-Con) 20 meq 1X ONCE 05/10/20 10:30 05/10/20 10:31 DC 05/10/20 10:29 20 MEQ Prochlorperazine Edisylate (Compazine) 5 mg PACU PRN PRN 05/12/20 07:00 05/13/20 06:59 DC Promethazine HCl (Phenergan Supp) 25 mg PRN Q8HRS PRN 05/19/20 10:45 8/26/20 11:58 25 MG Propofol (Diprivan) 200 mg STK-MED ONCE 05/12/20 10:12 05/12/20 10:12 DC Ringer's Solution 1,000 ml @ 75 mls/hr 1X ONCE 05/12/20 07:30 05/12/20 20:49 DC 05/12/20 11:46 75 MLS/HR Sertraline HCl (Zoloft) 50 mg DAILY 05/08/20 09:00 05/09/20 11:19 DC 05/09/20 08:44 50 MG Sodium Chloride 1,000 ml @ 75 mls/hr [id number] 05/18/20 10:45 05/21/20 10:54 DC 05/18/20 12:02 50 MLS/HR Spironolactone (Aldactone) 50 mg BID 05/13/20 12:00 05/15/20 12:34 DC 05/15/20 08:43 50 MG Succinylcholine Chloride (Anectine) 200 mg STK-MED ONCE 05/10/20 09:00 05/12/20 12:52 DC Tramadol HCl (Ultram) 50 mg TID 05/12/20 14:00 05/21/20 10:54 DC 05/21/20 08:38 50 MG Vancomycin HCl (Vancomycin Oral Solution) 125 mg BID 05/22/20 21:00 05/25/20 08:31 125 MG Objective: Assessment: 1. Fever - better. 2. Leukocytosis - improved 3. Abdominal pain.s/p Paracentesis 1900 ml out 364 WBC 4. Ascites ? sec to obstruction. 5. Diarrhea. 6. Recent history of Clostridium difficile colitis on 04/14/2020. 7. Hyperbilirubinemia/transaminitis - ? post procedure 8. 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 She did not tolerate adjuvant chemotherapy. 9. Severe protein-calorie malnutrition. 10 blood culture positive gram-positive and gram-negative likely from the biliary source Plan: Plan of Care Patient is being transferred to home on hospice later today JAKE CANDELARIA MD May 25, 2020 09:50
--- NOTE | 2020-05-25 10:12 | PDOC ---
PROGRESS NOTES Date of Service DATE: 05/25/20 TIME: 10:10 Subjective Subjective feels okay. she will be dismissed to home today with hospice Objective Objective Vital Signs Date Time Temp Pulse Resp B/P (MAP) Pulse Ox O2 Delivery O2 Flow Rate FiO2 05/25/20 09:30 Room Air 05/25/20 07:00 97.9 80 16 94/61 (72) 97 97.9 05/24/20 14:50 95.0 Intake and Output 05/25/20 07:00 Intake Total 1860 ml Output Total 1 ml Balance 1859 ml Intake Oral 60 ml IV Total 900 ml Other 900 ml Urine/Stool Mix 1 ml # Voids 5 Physical Exam Abdomen: Soft, Other (distended with ascites. pleurix tube and bile catheter capped) Heart: Regular rate, Normal S1, Normal S2 General: Alert, Cooperative Lungs: Clear to auscultation Neuro: Normal speech Psych/Mental Status: Mental status NL Skin: No rashes Assessment Assessment 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 paracentesis 05/10/20. benign cells. atypical cells seen with special stains on repeat specimen 4. Anemia. 5. Hypokalemia treated 6. Severe protein-calorie malnutrition. 7. Fibromyalgia. 8. Hypotension treated low grade fever resolved abdominal pain better hx of c,.diff bile duct stricture ballon dilatation 05/14 . left biliary tree still dilated internal to external bile drain placed 05/17 pleurix tube placed for intermittent paracentesis depression acute blood loss anemia. hgb better after 4 units prbc suspect GI bleed pre renal azotemia improved leukocytosis resolved GNR and GPC in chains bacteremia Plan Plan of Care dismiss today home with hospice Comment Review of Relevant I have reviewed the following items betty (where applicable) has been applied. Labs Laboratory Tests Test 05/24/20 07:30 White Blood Count 6.1 x10^3/uL (4.0-11.0) Red Blood Count 2.82 x10^6/uL (3.50-5.40) Hemoglobin 8.8 g/dL (12.0-15.5) Hematocrit 26.2 % (36.0-47.0) Mean Corpuscular Volume 93 fL (79-100) Mean Corpuscular Hemoglobin 31 pg (25-35) Mean Corpuscular Hemoglobin Concent 34 g/dL (31-37) Red Cell Distribution Width 18.7 % (11.5-14.5) Platelet Count 233 x10^3/uL (140-400) Neutrophils (%) (Auto) 84 % (31-73) Lymphocytes (%) (Auto) 8 % (24-48) Monocytes (%) (Auto) 7 % (0-9) Eosinophils (%) (Auto) 1 % (0-3) Basophils (%) (Auto) 0 % (0-3) Neutrophils # (Auto) 5.2 x10^3/uL (1.8-7.7) Lymphocytes # (Auto) 0.5 x10^3/uL (1.0-4.8) Monocytes # (Auto) 0.4 x10^3/uL (0.0-1.1) Eosinophils # (Auto) 0.0 x10^3/uL (0.0-0.7) Basophils # (Auto) 0.0 x10^3/uL (0.0-0.2) Sodium Level 132 mmol/L (136-145) Potassium Level 4.4 mmol/L (3.5-5.1) Chloride Level 102 mmol/L (98-107) Carbon Dioxide Level 22 mmol/L (21-32) Anion Gap 8 (6-14) Blood Urea Nitrogen 20 mg/dL (7-20) Creatinine 0.8 mg/dL (0.6-1.0) Estimated GFR (Cockcroft-Gault) 68.7 BUN/Creatinine Ratio 25 (6-20) Glucose Level 166 mg/dL (70-99) Calcium Level 7.9 mg/dL (8.5-10.1) Total Bilirubin 4.6 mg/dL (0.2-1.0) Aspartate Amino Transf (AST/SGOT) 39 U/L (15-37) Alanine Aminotransferase (ALT/SGPT) 28 U/L (14-59) Alkaline Phosphatase 527 U/L (46-116) Total Protein 5.8 g/dL (6.4-8.2) Albumin 1.6 g/dL (3.4-5.0) Albumin/Globulin Ratio 0.4 (1.0-1.7) Microbiology 05/21/20 Blood Culture - Preliminary, Resulted 05/20/20 Urine Culture - Final, Complete 05/10/20 Gram Stain - Final, Complete 05/10/20 Aerobic and Anaerobic Culture - Final, Complete Medications Current Medications Hydroxyzine HCl (Atarax) 10 mg PRN TID PRN PO ITCHING Last administered on 05/18/20at 15:09; Start 05/07/20 at 17:00; Stop 05/21/20 at 10:54; Status DC Sertraline HCl (Zoloft) 50 mg DAILY PO Last administered on 05/09/20at 08:44; Start 05/08/20 at 09:00; Stop 05/09/20 at 11:19; Status DC Amitriptyline HCl (Elavil) 50 mg QHS PO Last administered on 05/17/20at 21:31; Start 05/07/20 at 21:00; Stop 05/20/20 at 12:08; Status DC Acetaminophen (Tylenol) 325 mg PRN Q6HRS PRN PO MILD PAIN / TEMP > 100.3'F; Start 05/07/20 at 20:00 Iohexol (Omnipaque 300 Mg/ml) 75 ml 1X ONCE IV Last administered on 05/08/20at 13:30; Start 05/08/20 at 11:45; Stop 05/08/20 at 11:46; Status DC Info (CONTRAST GIVEN -- Rx MONITORING) 1 each PRN DAILY PRN MC SEE COMMENTS; Start 05/08/20 at 11:45; Stop 05/10/20 at 11:44; Status DC Tramadol HCl (Ultram) 50 mg TID PO Last administered on 05/09/20at 07:35; Start 05/08/20 at 14:00; Stop 05/09/20 at 11:15; Status DC Potassium Chloride (Klor-Con) 40 meq 1X ONCE PO Last administered on 05/08/20at 14:10; Start 05/08/20 at 12:15; Stop 05/08/20 at 12:16; Status DC Sodium Chloride 1,000 ml @ 60 mls/hr [id number] IV Last administered on 05/09/20at 07:36; Start 05/08/20 at 12:30; Stop 05/09/20 at 11:15; Status DC Amylase/Lipase/ Protease (Zenpep 5,000) 2 cap TIDWMEALS PO Last administered on 05/16/20at 12:28; Start 05/08/20 at 13:00 Phytonadione (Vitamin K Ampule) 2 mg 1X ONCE SQ Last administered on 05/09/20at 11:34; Start 05/09/20 at 11:00; Stop 05/09/20 at 11:01; Status DC Meropenem 1 gm/ Sodium Chloride 100 ml @ 200 mls/hr Q12HR IV Last administered on 05/15/20at 08:42; Start 05/09/20 at 11:30; Stop 05/15/20 at 09:01; Status DC Linezolid/Dextrose 300 ml @ 300 mls/hr Q12HR IV Last administered on 05/15/20at 08:42; Start 05/09/20 at 12:00; Stop 05/15/20 at 09:01; Status DC Acetaminophen/ Hydrocodone Bitart (Lortab 5/325) 1 tab PRN Q4HRS PRN PO MODERATE - SEVERE PAIN Last administered on 05/16/20at 18:37; Start 05/09/20 at 11:15; Stop 05/18/20 at 10:35; Status DC Vancomycin HCl (Vancomycin Oral Solution) 125 mg [id number] PO Last administered on 05/22/20at 08:18; Start 05/09/20 at 14:00; Stop 05/22/20 at 12:13; Status DC Lactobacillus Rhamnosus (Culturelle) 1 cap BID PO Last administered on 05/25/20at 08:32; Start 05/09/20 at 21:00 Lidocaine HCl (Buffered Lidocaine 1%) 3 ml STK-MED ONCE .ROUTE ; Start 05/10/20 at 08:09; Stop 05/10/20 at 08:09; Status DC Lidocaine HCl (Buffered Lidocaine 1%) 6 ml 1X ONCE INJ Last administered on 05/10/20at 08:15; Start 05/10/20 at 08:15; Stop 05/10/20 at 08:19; Status DC Lidocaine HCl (Buffered Lidocaine 1%) 3 ml 1X ONCE INJ ; Start 05/10/20 at 09:00; Stop 05/10/20 at 09:01; Status DC Potassium Chloride (Klor-Con) 20 meq 1X ONCE PO Last administered on 05/10/20at 10:29; Start 05/10/20 at 10:30; Stop 05/10/20 at 10:31; Status DC Levofloxacin/ Dextrose 100 ml @ 100 mls/hr 1X ONCE IV Last administered on 05/12/20at 14:15; Start 05/12/20 at 09:00; Stop 05/12/20 at 09:59; Status DC Ringer's Solution 1,000 ml @ 30 mls/hr Q24H IV Last administered on 05/12/20at 09:39; Start 05/12/20 at 07:00; Stop 05/12/20 at 18:59; Status DC Prochlorperazine Edisylate (Compazine) 5 mg PACU PRN PRN IV NAUSEA, MRX1; Start 05/12/20 at 07:00; Stop 05/13/20 at 06:59; Status DC Ringer's Solution 1,000 ml @ 75 mls/hr 1X ONCE IV Last administered on 05/12/20at 11:46; Start 05/12/20 at 07:30; Stop 05/12/20 at 20:49; Status DC Iohexol (Omnipaque 300 Mg/ml) 100 ml STK-MED ONCE .ROUTE ; Start 05/12/20 at 09:24; Stop 05/12/20 at 09:24; Status DC Propofol (Diprivan) 200 mg STK-MED ONCE IV ; Start 05/12/20 at 10:12; Stop 05/12/20 at 10:12; Status DC Succinylcholine Chloride (Anectine) 200 mg STK-MED ONCE .ROUTE ; Start 05/10/20 at 09:00; Stop 05/12/20 at 12:52; Status DC Ephedrine Sulfate (ePHEDrine PF IN SALINE SYRINGE) 50 mg STK-MED ONCE IV ; Start 05/10/20 at 09:00; Stop 05/12/20 at 12:52; Status DC Morphine Sulfate (Morphine Sulfate) 1 mg PRN Q4HRS PRN IV PAIN Last administered on 05/18/20at 08:14; Start 05/12/20 at 13:15; Stop 05/18/20 at 10:35; Status DC Ondansetron HCl (Zofran) 4 mg PRN Q6HRS PRN IVP NAUSEA/VOMITING Last administered on 05/19/20at 08:58; Start 05/12/20 at 13:15 Tramadol HCl (Ultram) 50 mg TID PO Last administered on 05/21/20at 08:38; Start 05/12/20 at 14:00; Stop 05/21/20 at 10:54; Status DC Spironolactone (Aldactone) 50 mg BID PO Last administered on 05/15/20at 08:43; Start 05/13/20 at 12:00; Stop 05/15/20 at 12:34; Status DC Hydrocortisone Acetate (Anucort-Hc) 25 mg BID NM Last administered on 05/25/20at 08:31; Start 05/13/20 at 12:00 Lidocaine/ Epinephrine (LIDOCAINE 1%-EPI 1:100,000 Multi-Dose) 20 ml STK-MED ONCE .ROUTE ; Start 05/14/20 at 10:55; Stop 05/14/20 at 10:55; Status DC Iohexol (Omnipaque 240 Mg/ml) 50 ml STK-MED ONCE .ROUTE ; Start 05/14/20 at 10:59; Stop 05/14/20 at 11:00; Status DC Midazolam HCl (Versed) 5 mg STK-MED ONCE .ROUTE ; Start 05/14/20 at 11:18; Stop 05/14/20 at 11:18; Status DC Fentanyl Citrate (Fentanyl 2ml Vial) 100 mcg STK-MED ONCE .ROUTE ; Start 05/14/20 at 11:18; Stop 05/14/20 at 11:18; Status DC Midazolam HCl (Versed) 5 mg 1X ONCE IV Last administered on 05/14/20at 12:41; Start 05/14/20 at 11:45; Stop 05/14/20 at 11:46; Status DC Fentanyl Citrate (Fentanyl 2ml Vial) 100 mcg 1X ONCE IV Last administered on 05/14/20at 12:41; Start 05/14/20 at 11:45; Stop 05/14/20 at 11:46; Status DC Lidocaine/ Epinephrine (LIDOCAINE 1%-EPI 1:100,000 Multi-Dose) 20 ml 1X ONCE INJ Last administered on 05/14/20at 12:40; Start 05/14/20 at 11:45; Stop 05/14/20 at 11:46; Status DC Iohexol (Omnipaque 240 Mg/ml) 50 ml 1X ONCE IJ Last administered on 05/14/20at 12:40; Start 05/14/20 at 11:45; Stop 05/14/20 at 11:46; Status DC Info (CONTRAST GIVEN -- Rx MONITORING) 1 each PRN DAILY PRN MC SEE COMMENTS; Start 05/14/20 at 11:45; Stop 05/16/20 at 11:44; Status DC Fentanyl Citrate (Fentanyl 2ml Vial) 100 mcg STK-MED ONCE .ROUTE ; Start 05/14/20 at 13:15; Stop 05/14/20 at 13:15; Status DC Iohexol (Omnipaque 300 Mg/ml) 100 ml STK-MED ONCE .ROUTE ; Start 05/14/20 at 13:27; Stop 05/14/20 at 13:28; Status DC Albumin Human 100 ml @ 100 mls/hr 1X ONCE IV ; Start 05/16/20 at 11:00; Stop 05/16/20 at 11:59; Status DC Lidocaine HCl (Buffered Lidocaine 1%) 3 ml STK-MED ONCE .ROUTE ; Start 05/17/20 at 13:11; Stop 05/17/20 at 13:12; Status DC Iohexol (Omnipaque 240 Mg/ml) 50 ml STK-MED ONCE .ROUTE ; Start 05/17/20 at 13:15; Stop 05/17/20 at 13:16; Status DC Albumin Human 100 ml @ As Directed STK-MED ONCE IV ; Start 05/17/20 at 13:16; Stop 05/17/20 at 13:17; Status DC Cefazolin Sodium (Ancef) 1 gm STK-MED ONCE IVP ; Start 05/17/20 at 13:16; Stop 05/17/20 at 13:17; Status DC Midazolam HCl (Versed) 2 mg STK-MED ONCE .ROUTE ; Start 05/17/20 at 13:16; Stop 05/17/20 at 13:17; Status DC Fentanyl Citrate (Fentanyl 2ml Vial) 100 mcg STK-MED ONCE .ROUTE ; Start 05/17/20 at 13:17; Stop 05/17/20 at 13:17; Status DC Cefazolin Sodium (Ancef) 1 gm STK-MED ONCE IVP ; Start 05/17/20 at 13:17; Stop 05/17/20 at 13:17; Status DC Lidocaine HCl (Buffered Lidocaine 1%) 3 ml 1X ONCE IJ Last administered on 05/17/20at 13:45; Start 05/17/20 at 13:45; Stop 05/17/20 at 13:51; Status DC Midazolam HCl (Versed) 2 mg 1X ONCE IV Last administered on 05/17/20at 13:30; Start 05/17/20 at 13:45; Stop 05/17/20 at 13:51; Status DC Fentanyl Citrate (Fentanyl 2ml Vial) 100 mcg 1X ONCE IV Last administered on 05/17/20at 13:30; Start 05/17/20 at 13:45; Stop 05/17/20 at 13:51; Status DC Cefazolin Sodium (Ancef) 1 gm 1X ONCE IVP Last administered on 05/17/20at 13:55; Start 05/17/20 at 13:45; Stop 05/17/20 at 13:51; Status DC Albumin Human 100 ml @ 100 mls/hr 1X ONCE IV Last administered on 05/17/20at 13:45; Start 05/17/20 at 13:45; Stop 05/17/20 at 14:44; Status DC Iohexol (Omnipaque 240 Mg/ml) 50 ml 1X ONCE IJ Last administered on 05/17/20at 14:07; Start 05/17/20 at 13:45; Stop 05/17/20 at 13:51; Status DC Info (CONTRAST GIVEN -- Rx MONITORING) 1 each PRN DAILY PRN MC SEE COMMENTS; Start 05/17/20 at 14:00; Stop 05/19/20 at 13:59; Status DC Morphine Sulfate (Morphine Sulfate) 2 mg PRN Q4HRS PRN IV PAIN Last administered on 05/25/20at 06:12; Start 05/18/20 at 10:45 Mirtazapine (Remeron) 7.5 mg QHS PO ; Start 05/18/20 at 21:00; Stop 05/20/20 at 12:08; Status DC Sodium Chloride 1,000 ml @ 75 mls/hr [id number] IV Last administered on 05/18/20at 12:02; Start 05/18/20 at 10:45; Stop 05/21/20 at 10:54; Status DC Acetaminophen/ Hydrocodone Bitart (Lortab 10/325) 1 tab PRN Q4HRS PRN PO MODERATE PAIN Last administered on 05/25/20 08:32; Start 05/18/20 at 10:45 Pantoprazole Sodium (Protonix) 40 mg DAILYAC PO ; Start 05/19/20 at 07:30; Stop 05/20/20 at 11:51; Status DC Amino Acids/ Glycerin/ Electrolytes 1,000 ml @ 75 mls/hr [id number] IV Last administered on 05/24/20 20:29; Start 05/19/20 at 08:45 Promethazine HCl (Phenergan Supp) 25 mg PRN Q8HRS PRN NM NAUSEA/VOMITING Last administered on 05/19/20at 11:58; Start 05/19/20 at 10:45 Fentanyl (Duragesic 12mcg/ Hr Patch) 1 patch Q3DAYS TD Last administered on 05/25/20 08:32; Start 05/19/20 at 18:00 Menthol/Methyl Salicylate (Bengay Greaseless Cream) 1 amparo PRN QID PRN TP MUSCLE PAIN Last administered on 05/22/20 08:21; Start 05/19/20 at 21:15 Pantoprazole Sodium (PROTONIX VIAL for IV PUSH) 40 mg DAILYAC IVP Last administered on 05/25/20 08:31; Start 05/20/20 at 13:00 Linezolid/Dextrose 300 ml @ 300 mls/hr Q12HR IV Last administered on 05/25/20 08:31; Start 05/20/20 at 13:00 Meropenem 500 mg/ Sodium Chloride 50 ml @ 100 mls/hr Q8HRS IV Last administered on 05/25/20at 06:10; Start 05/20/20 at 13:00 Vancomycin HCl (Vancomycin Oral Solution) 125 mg BID PO Last administered on 05/25/20 08:31; Start 05/22/20 at 21:00 Active Scripts Active FENTANYL 12mcg/hr (Fentanyl) 1 Each Patch.td72 1 Patch TD Q3DAYS Promethegan (Promethazine Hcl) 25 Mg Supp.rect 25 Mg NM PRN Q8HRS PRN Vitals/I & O Vital Sign - Last 24 Hours 05/24/20 05/24/20 05/24/20 05/24/20 10:30 13:27 14:50 14:53 Temp 97.7 97.5 97.7 97.5 Pulse 80 86 Resp 16 18 B/P (MAP) 97/53 (68) 115/67 (83) Pulse Ox 98 O2 Delivery Room Air Room Air Room Air Room Air O2 Flow Rate 95.0 05/24/20 05/24/20 05/24/20 05/24/20 14:56 15:32 17:32 18:32 O2 Delivery Room Air Room Air Room Air Room Air 05/24/20 05/24/20 05/24/20 05/24/20 19:00 19:55 20:27 20:57 Temp 98.2 98.2 Pulse 68 Resp 20 20 20 B/P (MAP) 129/69 (89) Pulse Ox 98 O2 Delivery Room Air Room Air Room Air Room Air 05/24/20 05/24/20 05/24/20 05/25/20 22:39 23:00 23:39 00:41 Temp 98.0 98.0 Pulse 61 Resp 20 18 20 20 B/P (MAP) 109/61 (77) Pulse Ox 97 O2 Delivery Room Air Room Air Room Air Room Air 05/25/20 05/25/20 05/25/20 05/25/20 01:11 03:00 03:35 04:35 Temp 98.5 98.5 Pulse 100 Resp 20 18 20 20 B/P (MAP) 118/71 (87) Pulse Ox 93 O2 Delivery Room Air Room Air Room Air Room Air 05/25/20 05/25/20 05/25/20 05/25/20 06:12 07:00 08:00 08:32 Temp 97.9 97.9 Pulse 80 Resp 20 16 B/P (MAP) 94/61 (72) Pulse Ox 97 O2 Delivery Room Air Room Air Room Air Room Air 05/25/20 05/25/20 08:32 09:30 O2 Delivery Room Air Room Air Intake and Output 05/24/20 05/24/20 05/25/20 15:00 23:00 07:00 Intake Total 1860 ml Output Total 1 ml Balance -1 ml 1860 ml Justifications for Admission Other Justification Nutrition Consultation Dietary Evaluation: Recommendations by RD: Dietary education by RD, PPN/TPN Comments: REC continue PPN at this time Expected Outcomes/Goals: nutrition support vs po comfort care Malnutrition Findings: Muscle Mass (Severe): Severe Depletion Food and Nutrition Intake (Sev: <50% est energy req 5days Body Fat Depletion (Non Severe: Mod to Severe Weight Status: Underweight Fluid Accumulation (Severe): Severe SRINIVASA ABDULLAHI MD May 25, 2020 10:12
[2020-05-25 11:00] VITALS: BP 106/67
--- NOTE | 2020-05-25 12:40 | NUR ---
PT DISCHARGED HOME WITH HOSPICE. IV REMOVED. PAIN MEDS ADMINISTERED. BELONGINGS WERE PACKED AND SENT WITH PT. ASSISTED PT TO [facility].
== END 2020-05-25 12:42 | disposition hospice, home (50) | DRG 435 ==
LOC: 4 NORTH 15:15
PROVIDERS: ADMIT Internal Medicine; ATTEND Internal Medicine
PROC: 0W9G3ZZ Drainage of Peritoneal Cavity, Percutaneous Approach (ICD-10-PCS; 2020-05-10)
PROC: 0DJ08ZZ Inspection of Upper Intestinal Tract, Via Natural or Artificial Opening Endoscopic (ICD-10-PCS; principal; 2020-05-12 10:00)
PROC: 0F7 Hepatobiliary System and Pancreas, Dilation (ICD-10-PCS; 2020-05-14)
PROC: 0JH83XZ Insertion of Tunneled Vascular Access Device into Abdomen Subcutaneous Tissue and Fascia, Percutaneous Approach (ICD-10-PCS; 2020-05-14)
PROC: 06H433Z Insertion of Infusion Device into Hepatic Vein, Percutaneous Approach (ICD-10-PCS; 2020-05-14)
PROC: B51T1ZA Fluoroscopy of Portal and Splanchnic Veins using Low Osmolar Contrast, Guidance (ICD-10-PCS; 2020-05-14)
PROC: 0WHG33Z Insertion of Infusion Device into Peritoneal Cavity, Percutaneous Approach (ICD-10-PCS; 2020-05-14)
PROC: 0F9 Hepatobiliary System and Pancreas, Drainage (ICD-10-PCS; 2020-05-17)
PROC: BF101ZZ Fluoroscopy of Bile Ducts using Low Osmolar Contrast (ICD-10-PCS; 2020-05-17)
DX: C22.1 Intrahepatic bile duct carcinoma (principal); E43 Unspecified severe protein-calorie malnutrition; K83.1 Obstruction of bile duct; K91.89 Other postprocedural complications and disorders of digestive system; D62 Acute posthemorrhagic anemia; D68.9 Coagulation defect, unspecified; K31.1 Adult hypertrophic pyloric stenosis; R18.0 Malignant ascites; R78.81 Bacteremia; K92.2 Gastrointestinal hemorrhage, unspecified; B96.89 Other specified bacterial agents as the cause of diseases classified elsewhere; D72.829 Elevated white blood cell count, unspecified; E78.5 Hyperlipidemia, unspecified; E87.6 Hypokalemia; F32.9 Major depressive disorder, single episode, unspecified; H54.7 Unspecified visual loss; I12.9 Hypertensive chronic kidney disease with stage 1 through stage 4 chronic kidney disease, or unspecified chronic kidney disease; K21.0 Gastro-esophageal reflux disease with esophagitis; K64.9 Unspecified hemorrhoids; K86.89 Other specified diseases of pancreas; M79.7 Fibromyalgia; N18.9 Chronic kidney disease, unspecified; Z20.828 Contact with and (suspected) exposure to other viral communicable diseases; Z66 Do not resuscitate; Z83.3 Family history of diabetes mellitus; Z85.05 Personal history of malignant neoplasm of liver; Z85.07 Personal history of malignant neoplasm of pancreas; Z86.19 Personal history of other infectious and parasitic diseases; Z90.411 Acquired partial absence of pancreas; Z90.710 Acquired absence of both cervix and uterus; F41.9 Anxiety disorder, unspecified; M19.90 Unspecified osteoarthritis, unspecified site; Z79.899 Other long term (current) drug therapy
CPT/HCPCS: 36415; 43235; 43277; 47532; 47534; 49083; 49418; 71045; 73030; 74018; 74176; 74177; 74181; 74328; 76700; 76942; 80048; 80053; 80076; 81001; 82042; 82247; 83615; 83735; 85007; 85025; 85610; 86301; 86850; 86900; 86901; 86920; 86927; 87040; 87071; 87075; 87086; 87205; 87426; 88112; 88305; 88341; 88342; 89050; 93005; 99152; 99153; A4215; C1713; C1729; C1892; C1894; C9113; J0330; J0690; J1956; J2020; J2185; J2250; J2270; J2405; J2704; J3010; J3430; J3490; J7030; J7120; P9016; P9017; P9046; Q9966; Q9967; 97110-GP; 97116-GP; 97530-GO; 97530-GP; 97535-GO; G0378; U0003-CS

== ENCOUNTER → 2020-05-07 | Outpatient (CLI) | payer MEDICARE ==
[2020-04-16 11:02] VITALS: BP 124/61
[~2020-05-07] MED LIST changes: +AMIT50TA PO; +CEPH250C PO; +FURO20TA3 PO; +GABA300C9 PO; +HYDR10TA2 PO; +HYDR30CR70 TP; +METR500T PO; +POTA10TA12 PO
[2020-05-07 11:43] LABS: BASO # 0.1 x10^3/uL (0.0-0.2); BASO % 1 % (0-3); EOS % 0 % (0-3); HEMATOCRIT 26.6 % (36.0-47.0); LYMPH # 2.9 x10^3/uL (1.0-4.8); LYMPH % 26 % (24-48); MEAN CORPUSCULAR HEMOGLOBIN 30 pg (25-35); MEAN CORPUSCULAR HGB CONC 34 g/dL (31-37); MEAN CORPUSCULAR VOLUME 88 fL (79-100); MONO # 1.2 x10^3/uL (0.0-1.1); MONO % 11 % (0-9); NEUT # 6.9 x10^3/uL (1.8-7.7); NEUT % 62 % (31-73); PLATELET COUNT 413 x10^3/uL (140-400); RED BLOOD COUNT 3.04 x10^6/uL (3.50-5.40); RED CELL DISTRIBUTION WIDTH 18.8 % (11.5-14.5); WHITE BLOOD COUNT 11.1 x10^3/uL (4.0-11.0)
[2020-05-07 11:57] LABS: CALCIUM 8.6 mg/dL (8.5-10.1); CREATININE 0.8 mg/dL (0.6-1.0); GFR 68.7; POTASSIUM 3.4 mmol/L (3.5-5.1)
[2020-05-07 12:07] LABS: ALBUMIN 1.9 g/dL (3.4-5.0); ALBUMIN/GLOBULIN RATIO 0.4 (1.0-1.7); DIRECT BILIRUBIN 9.1 mg/dL (0.0-0.2); TOTAL BILIRUBIN 10.1 mg/dL (0.2-1.0); TOTAL PROTEIN 7.1 g/dL (6.4-8.2)
[2020-05-07 12:24] LABS: % BANDS 5 % (0-9); % EOS 1 % (0-5); % LYMPHS 10 % (24-48); % MONOS 7 % (0-10)
[2020-05-07 12:25] LABS: % METAS 1 % (0-0); % SEGS 76 % (35-66)
[2020-05-07 12:27] LABS: ANISOCYTOSIS SLIGHT; PLT ESTIMATE ADEQUATE (ADEQUATE); TARGET CELLS MOD
== END ==
LOC: ONCLAB 11:27
PROVIDERS: ATTEND Internal Medicine Hematology & Oncology
DX: C24.0 Malignant neoplasm of extrahepatic bile duct (principal)
CPT/HCPCS: 36415; 80053; 82248; 85007; 85025; 86301